=== PATIENT | female | born 1955 | race Caucasian/White ===

== ENCOUNTER 2023-02-11 07:28 | Outpatient (OUT) | payer MEDICARE, SELFPAY ==
--- NOTE | 2023-02-11 07:42 | CT_ITS ---
The [address] [address] Patient Name: MARLY JAFFE MRN: [facility]:[id number] date: 1955 Sex: F Assigned Patient Location: LAB Current Patient Location: LAB Accession/Order Number: [id number] Exam Date: 02/11/2023 08:00 Report Date: 02/11/2023 09:25 At the request of: CHAR MANZANARES Procedure: CT chest w con EXAM: CT chest w con HISTORY: Lung nodules R91.8 COMPARISON: 08/04/2022 CHEST FINDINGS: Lungs/Pleura: A pleural-based region of atelectasis or scarring in the right lung base appears smaller and less nodular on the current study measuring approximately 7.7 x 3.1 mm. A pleural-based nodule in the left lower lobe on image 85 of series 4 is stable measuring approximately 4.7 mm. No pleural effusion or pneumothorax. Cardiovascular: The heart is normal in size. Moderate coronary artery calcifications are present. The aorta and pulmonary arteries are unremarkable. Pericardium: No effusion. Mediastinum: Unremarkable. Lymph Nodes: No lymph node enlargement by CT size criteria. Bones: No acute osseous abnormality. Soft tissues: Breast implants are present. Upper Abdomen: There is a small area of enhancement at the dome of liver measuring 1.[address]/CT chest w con IMPRESSION: 1. No acute abnormality of the chest. 2. Area of streaky opacity in the right lung base has decreased in size with a less nodular appearance compared to the previous exam, favored to represent atelectasis or scarring. 3. Stable pulmonary nodule in the left lower lobe. 4. Small indeterminate area of enhancement at the dome of the liver, possibly representing a small flash filling hemangioma. Electronically authenticated by: MARCIO NORTH Date: 02/11/2023 09:25
[2023-02-11 07:48] LABS: Estimated GFR (African America >60 (>=60); Estimated GFR (Non-African Ame >60 (>=60)
== END 2023-02-11 07:29 | disposition home or self-care (01) ==
LOC: LAB 07:28
PROVIDERS: PCP Family Medicine; Visit Provider Family Medicine
DX: R91.8 Other nonspecific abnormal finding of lung field (principal)
CPT/HCPCS: 36415; 71260; 82565; Q9967

== ENCOUNTER 2023-03-08 09:49 | Outpatient (OUT) | payer MEDICARE, SELFPAY ==
[2023-03-08 10:31] LABS: Basophils Absolute Auto 0.1 10^3/uL (0.0-0.1); Basophils Percent Auto 0.9 % (0.2-2.0); Eosinophils Absolute Auto 0.2 10^3/uL (0.0-0.7); Eosinophils Percent Auto 3.4 % (0.9-7.0); Hematocrit 40.1 % (36.0-48.0); Hemoglobin 13.3 g/dL (12.0-16.0); Immature Granulocytes Abs Auto 0.03 10^3/uL (0.00-0.03); Immature Granulocytes Pct Auto 0.4 % (0.0-0.5); Lymphocytes Absolute Auto 2.6 10^3/uL (1.2-3.8); Lymphocytes Percent Auto 37.2 % (20.5-60.0); Mean Corpuscular HGB Conc 33.2 g/dL (29.9-35.2); Mean Corpuscular Hemoglobin 31.1 pg (26.7-34.0); Mean Corpuscular Volume 93.9 fL (81.0-99.0); Mean Platelet Volume 9.2 fL (9.5-13.5); Monocytes Absolute Auto 0.6 10^3/uL (0.3-0.8); Monocytes Percent Auto 8.9 % (1.7-12.0); Neutrophils Absolute Auto 3.4 10^3/uL (1.4-6.5); Neutrophils Percent Auto 49.2 % (43.0-75.0); Platelet Count 226 10^3/uL (150-450); Red Blood Count 4.27 10^6/uL (4.20-5.40); Red Cell Distribution Width 13.9 % (11.0-15.0); White Blood Count 6.9 10^3/uL (4.0-11.0)
[2023-03-08 10:51] LABS: Alanine Aminotransferase 22 U/L (14-59); Albumin Level 3.5 g/dL (3.4-5.0); Alkaline Phosphatase 62 U/L (46-116); Anion Gap 14.8; Aspartate Amino Transferase 22 U/L (15-37); BUN Creatinine Ratio 15.6; Bilirubin Direct <0.1 mg/dL (0.0-0.2); Bilirubin Total 0.3 mg/dL (0.2-1.0); Calcium 8.9 mg/dL (8.5-10.1); Chloride 107 mmol/L (98-107); Chol HDL Ratio 3.5; Cholesterol 212 mg/dL (<=200); Estimated GFR (African America >60 (>=60); Estimated GFR (Non-African Ame >60 (>=60); Globulin 3.5 g/dL; Glucose 103 mg/dL (74-106); HDL Cholesterol 61 mg/dL (40-60); Potassium 3.8 mmol/L (3.5-5.1); Sodium 144 mmol/L (136-145); Thyroid Stimulating Hormone 1.068 uIU/mL (0.358-3.740); Triglycerides 111 mg/dL (<=150); VLDL CHOLESTEROL 22.2 mg/dL
== END 2023-03-08 09:50 | disposition home or self-care (01) ==
PROVIDERS: PCP Family Medicine; Visit Provider Family Medicine
DX: Z79.899 Other long term (current) drug therapy (principal); Z13.220 Encounter for screening for lipoid disorders; R00.0 Tachycardia, unspecified
CPT/HCPCS: 36415; 80048; 80061; 80076; 84443; 85025

== ENCOUNTER 2023-04-14 11:26 | Outpatient (OUT) | payer MEDICARE, SELFPAY ==
--- NOTE | 2023-04-14 11:39 | PM.CN ---
Consult Note: HPI Data of Consult Patient: known to practice within the last 3 years Requesting Physician: Janet Ramirez NP Primary Care Provider: Jameel Massey MD Consult Narrative Reason for consult: F/u Narrative: Ann Marie Mccain a pleasant 68 year old female presents for evaluation and management of chronic low back pain and muscle spasms. Today rating pain 2/10 in low back. Patient continues to have >50% pain relief and functional improvement from lumbar RFAs in 10/23. Patient continues to experience stiffness and a sore back. Recently pain has been improved with lidocaine cream, topical voltaren, and skelaxin. cc:: CC: Janet Ramirez NP Review of Systems ROS Status of ROS 10 or more systems reviewed and unremarkable except as noted in history and below Musculoskeletal Reports: back pain Exam Constitutional Documenting provider has reviewed patient's vital signs: yes Common normals: no apparent distress, oriented x3, healthy appearing, alert and well nourished General appearance: cooperative HENMT Common normals: normocephalic, hearing grossly normal bilaterally and moist oral mucous membranes Head and scalp: normocephalic Eye Common normals: PERRL Pupil: PERRL Neck & C-Spine Common normals: full ROM General: normal visual inspection Chest Common normals: inspection of chest normal Respiratory Common normals: normal respiratory effort, no retractions and no use of accessory muscles Back & Pelvis Lumbar spine/lower back: ROM limited, pain with ROM and paraspinal muscle tenderness Extremity Common normals: normal to inspection and full ROM Neuro Common normals: oriented x3, CN's II-XII intact bilaterally, moves all extremities, no focal motor deficits, no sensory deficits noted, deep tendon reflexes 2+ bilaterally and gait normal Sensorium/orientation: alert Motor exam: strength 5/5 throughout and no movement abnormalities noted Psych Common normals: mental status grossly normal, thought process normal, cooperative, affect normal, speech normal and activity/motor behavior normal Speech: normal speech Thought process: normal thought process Results Additional Findings Additional findings: I have checked an [facility] report on this patient today and there are no aberrancies noted in the prescribing history.?? A drug screen was completed and reviewed within the last year, and if there has not been a drug screen completed we ordered one today to monitor higher risk, state monitored pain medication use. As part of providing excellent, safe, comprehensive care, the following was completed at our patient's visit: 1. A medication reconciliation and review to ensure accurate knowledge of current/active medications, including asking our patients to inform us about any mfhj-[id number] medications or herbal remedies/nutritional supplements/alternative remedies. 2. A review to specifically ensure our patients have had annual screening for: elevated body mass index (BMI), tobacco use, screening for depression, and screening for unhealthy alcohol use. When screening is concerning, patients are provided with education and the specific recommendation to discuss the concerning health issue and treatment options with their primary care provider. Assessment and Plan Assessment and Plan (1) Lumbar spondylosis: (2) Muscle spasm: Plan continue current medications and conservative measures prescription lidocaine cream ordered BID-TID PRN f/u 3 months
== END 2023-04-14 11:27 | disposition home or self-care (01) ==
PROVIDERS: PCP Family Medicine; Visit Provider Nurse Practitioner
DX: M47.816 Spondylosis without myelopathy or radiculopathy, lumbar region (principal); M62.838 Other muscle spasm
CPT/HCPCS: G0463

== ENCOUNTER 2023-05-05 09:37 | Outpatient (OUT) | payer MEDICARE, SELFPAY ==
--- NOTE | 2023-05-05 09:50 | XR_ITS ---
The [address] [address] Patient Name: MARLY JAFFE MRN: [id number] date: 1955 Sex: F Assigned Patient Location: [facility] Current Patient Location: Accession/Order Number: [id number] Exam Date: 05/05/2023 10:00 Report Date: 05/06/2023 07:51 At the request of: KATELYN MORATAYA Procedure: XR lumbar spine 6V w bending EXAMINATION: XR thoracic spine 2V, XR lumbar spine 6V w bending HISTORY: Thoracic Pain , lumbar pain COMPARISON: 08/04/2022 FINDINGS: BONES: Normal alignment of the thoracic and lumbar vertebral bodies with no acute fracture or spondylolisthesis. Mild to moderate diffuse degenerative spondylosis and facet osteoarthropathy most significant at L3-S1 DISC SPACES: Moderate multilevel disc space narrowing of the lumbar spine extending from L2 to S1 with endplate sclerosis and vacuum disks PARASPINOUS: Negative. No paraspinous abnormality is seen. OTHER: No transient spondylolisthesis with flexion or extension of the lumbar spine. Vascular calcifications XR/XR lumbar spine 6V w bending IMPRESSION: Mild to moderate diffuse degenerative changes No dynamic instability Electronically authenticated by: PAM CHRISTINA Date: 05/06/2023 07:51
--- NOTE | 2023-05-05 09:50 | XR_ITS ---
The [place] [id number] Patient Name: MARLY JAFFE MRN: [id number] date: 1955 Sex: F Assigned Patient Location: [facility] Current Patient Location: Accession/Order Number: [id number] Exam Date: 05/05/2023 10:00 Report Date: 05/06/2023 07:51 At the request of: KATELYN MORATAYA Procedure: XR thoracic spine 2V EXAMINATION: XR thoracic spine 2V, XR lumbar spine 6V w bending HISTORY: Thoracic Pain , lumbar pain COMPARISON: 08/04/2022 FINDINGS: BONES: Normal alignment of the thoracic and lumbar vertebral bodies with no acute fracture or spondylolisthesis. Mild to moderate diffuse degenerative spondylosis and facet osteoarthropathy most significant at L3-S1 DISC SPACES: Moderate multilevel disc space narrowing of the lumbar spine extending from L2 to S1 with endplate sclerosis and vacuum disks PARASPINOUS: Negative. No paraspinous abnormality is seen. OTHER: No transient spondylolisthesis with flexion or extension of the lumbar spine. Vascular calcifications XR/XR thoracic spine 2V IMPRESSION: Mild to moderate diffuse degenerative changes No dynamic instability Electronically authenticated by: PAM CHRISTINA Date: 05/06/2023 07:51
== END 2023-05-05 09:38 | disposition home or self-care (01) ==
LOC: RAD 09:40
PROVIDERS: PCP Family Medicine; Visit Provider Nurse Practitioner
DX: M54.50 Low back pain, unspecified (principal); M47.814 Spondylosis without myelopathy or radiculopathy, thoracic region; M47.816 Spondylosis without myelopathy or radiculopathy, lumbar region
CPT/HCPCS: 72070; 72114

== ENCOUNTER 2023-05-11 12:41 | Outpatient (OUT) | payer MEDICARE, SELFPAY ==
--- NOTE | 2023-05-11 13:06 | PM.CN ---
Consult Note: HPI Data of Consult Requesting Physician: Janet Ramirez NP Primary Care Provider: Estelle Bautista MD Consult Narrative Reason for consult: f/u Narrative: Ann Marie Mccain a pleasant 68 year old female presents for evaluation and management of whole body pain. Today pain in 4/10 in neck, shoulders, mid back, low back. Describes as a constant hurt. No fevers, chills, numbness/tingling, weakness. Patient recently had xrays completed of thoracic and lumbar spine which revealed degerenative changes cc:: CC: Janet Ramirez NP Review of Systems ROS Status of ROS 10 or more systems reviewed and unremarkable except as noted in history and below Musculoskeletal Reports: back pain and neck pain Meds Home Medications and Allergies Home Medications Medication Instructions Recorded Confirmed Type lidocaine 5 % topical ointment 1 applic topical TID #50 grams 04/14/23 Rx Exam Constitutional Documenting provider has reviewed patient's vital signs: yes Common normals: no apparent distress, oriented x3, healthy appearing, alert and well nourished General appearance: cooperative HENMT Common normals: normocephalic, hearing grossly normal bilaterally and moist oral mucous membranes Head and scalp: normocephalic Eye Common normals: PERRL Pupil: PERRL Neck & C-Spine Common normals: full ROM General: normal visual inspection Cervical spine: pain with cervical ROM Chest Common normals: inspection of chest normal Respiratory Common normals: normal respiratory effort, no retractions and no use of accessory muscles Back & Pelvis Thoracic spine/upper back: ROM limited and pain with ROM Lumbar spine/lower back: ROM limited, pain with ROM and paraspinal muscle tenderness Extremity Common normals: normal to inspection and full ROM Neuro Common normals: oriented x3, CN's II-XII intact bilaterally, moves all extremities, no focal motor deficits, no sensory deficits noted, deep tendon reflexes 2+ bilaterally and gait normal Sensorium/orientation: alert Motor exam: strength 5/5 throughout and no movement abnormalities noted Psych Common normals: mental status grossly normal, thought process normal, cooperative, affect normal, speech normal and activity/motor behavior normal Speech: normal speech Thought process: normal thought process Assessment and Plan Assessment and Plan (1) Chronic prescription benzodiazepine use: (2) Osteoarthritis: (3) Lumbar spondylosis: (4) Muscle spasm: (5) Thoracic spondylosis: Plan NNCP due to benzo use stop mobic, start celebrex 100mg BID continue tylenol use PRN start PT/aquatherapy f/u 3 months
--- OUTSIDE RECORDS SUMMARY | 2023-06-21 14:22 | XMS_ITS | CCD ---
Author Name Unknown Address [id number] [place] [address] Organization [facility] Care Team Providers Care Electrotherapist Name Role Phone MARNIESAMIRY Attending Unavailable Abbass, Rami Unavailable Unavailable Unknown, Referring Provider Unavailable Unav ailable Abbkayce, Rami Unavailable Unavailable Chaya PAUL, Rami Unavailable Unavailable Unknown, Referring Provider Unavailable Unav ailable Raquel PAUL, Jyoti S Primary Care Provider Raquel PAUL, Jyoti Lugo Primary Care Provider [phone] Raquel PAUL, Jyoti Lugo Primary Care Provider MD Enrrique Grant Attending Provider MD Jameel Manzanares Primary Care Provider Enrrique Grant Attending UnavailEnrrique Contreras Admitting Unavailabl e Jameel Manzanares Primary Care Unavailable Enrrique Grant Unavailable ROSANA ., DR ANTONELLA Lugo Consulting Unavailable NADERER, DR JAMEEL Ellis Primary Care Unavailable WAYNE ., DR ANTONELLA Lugo Attending Unavailable WAYNE ., DR ANTONELLA Lugo Admitting Unavailable RAJ, DR ÁNGEL Verduzco Consulting Unavailable NADERER, DR JAMEEL Ellis Primary Care Unavailable NADERER, DR JAMEEL Ellis Attending Unavailable NADERER, DR JAMEEL Ellis Admitting Unavailable NADERER, DR JAMEEL Ellis Consulting Unavailable KIERAN PETERSEN Consulting Unavailable GLENNA, DR JAMEEL Ellis Primary Care Unavailable KIERAN PETERSEN Attending Unavailable KIERAN PETERSEN Admitting Unavailable KARASIMateo ., DR MADRID Consulting Unavailabl e NADERER, DR JAMEEL Ellis Primary Care Unavailable KARASIK ., DR MADRID Attending Unavailabl e KARASIK ., DR MADRID Admitting Unavailabl e ZIEBER, DR ÁNGEL Verduzco Consulting Unavailable ARMANDO .SWEETIE Consulting Unavailable NADERER, DR JAMEEL Ellis Primary Care Unavailable WAYNE ., DR ANTONELLA Lugo Attending Unavailable WAYNE ., DR ANTONELLA Lugo Admitting Unavailable ROBERTS ., SWEETIE Consulting Unavailable NADERER, DR JAMEEL Ellis Primary Care Unavailable WAYNE ., DR ANTONELLA Lugo Attending Unavailable WAYNE ., DR ANTONELLA Lugo Admitting Unavailable WAYNE ., DR ANTONELLA Lugo Consulting Unavailable NADGALILEA, DR JAMEEL Ellis Primary Care Unavailable WAYNE ., DR ANTONELLA Lugo Attending Unavailable WAYNE ., DR ANTONELLA Lugo Admitting Unavailable MOSS, RAFAELA Consulting Unavailable LAKSHMIPATHY ., NARKENDAL Consulting Amelia vailable NADERER, DR JAMEEL Ellis Primary Care Unavailable LAKSHMIPATHY ., AAKASH Attending Amelia vailable LAKSHMIPATHY ., AAKASH Admitting Amelia vailable ROBERTS ., SWEETIE Consulting Unavailable NADERER, DR JAMEEL Ellis Primary Care Unavailable WAYNE ., DR ANTONELLA Lugo Attending Unavailable WAYNE ., DR ANTONELLA Lugo Admitting Unavailable KARASIK ., DR MADRID Consulting Unavailabl e NADERER, DR JAMEEL Ellis Primary Care Unavailable KARASIK ., DR MADRID Attending Unavailabl e KARASIK ., DR MADRID Admitting Unavailabl e NADERER, DR JAMEEL Ellis Consulting Unavailable NADERER, DR JAMEEL Ellis Primary Care Unavailable NADERER, DR JAMEEL Ellis Attending Unavailable NADERER, DR JAMEEL Ellis Admitting Unavailable NADERER, DR JAMEEL Ellis Consulting Unavailable NADERER, DR JAMEEL Ellis Primary Care Unavailable NADERER, DR JAMEEL Ellis Attending Unavailable NADERER, DR JAMEEL Ellis Admitting Unavailable NADERER, DR JAMEEL Ellis Primary Care Unavailable WAYNE, DR FITZGERALD Attending Unavailable WAYNE, DR FITZGERALD Admitting Unavailable Estelle Bautista Unavailable JOSE VILLALOBOS Attending Unavailable KIERAN PETERSEN Attending Unavailable JOSE VILLALOBOS Attending Unavailable JOSE VILLALOBOS Attending Unavailable KIERAN PETERSEN Admitting Unavailable KIERAN PETERSEN Attending Unavailable KAYY VASQUEZ Attending Unavailable KIERAN PETERSEN Attending Unavailable Allergies Allergy Classification Reported Allergen(s) Allergy Type Date of Onset Reaction(s) Facility Prochlorperazine (1 source) Prochlorperazine Drug Allergy [facility] Work Phone: Sulfonamides (antibiotic) (1 source) Sulfonamides (Antibiotic) Drug Allergy [facility] Work Phone: (5 sources) Hydroxychloroquine; 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: [HYDROXYCHLOROQUINE SULFATE] Drug Allergy Rash [facility] Repository (8 sources) Sulfonamides (Antibiotic); 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: [SULFA (SULFONAMIDE ANTIBIOTICS)] Propensity to adverse reactions to drug (disorder) Unknown Reaction [facility] Repository (6 sources) AMOXICILLIN-POT CLAVULANATE; 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: [AMOXICILLIN-POT CLAVULANATE] Propensity to adverse reactions to drug (disorder) 019 Rash [facility] Repository (5 sources) PROCHLORPERAZINE EDISYLATE; 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: [PROCHLORPERAZINE EDISYLATE] Propensity to adverse reactions to drug (disorder) [facility] Repository (4 sources) Sulfonamides (Antibiotic) drug allergy [facility] Work Phone: (1 source) drug allergy [facility] Work Phone: (10 sources) Prochlorperazine; 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: [Compazine] Drug Allergy Unknown [facility] Repository (6 sources) Prochlorperazine; 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: [PROCHLORPERAZINE] Drug Allergy Other: See Comments [facility] (5 sources) traMADol; 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: [TRAMADOL] Drug Allergy 019 Intolerance, GI Upset [facility] (1 source) Prochlorperazine Drug Allergy 023 [facility] Repository (6 sources) Sulfacetamide / Sulfur Drug Allergy Unknown [employer] [facility] Other (1 source) Sulfonamides (Antibiotic) Drug allergy (disorder) [facility] Repository (1 source) Hydroxychloroquine; 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: [HYDROXYCHLOROQUINE ] Drug Allergy [facility] Repository Medications Current Medications Medication Drug Class(es) Dates Sig (Normalized) Sig (Original) [id number] 60 actuat albuterol 0.09 mg/actuat metered dose inhaler (8 sources) beta2-Adrenergic Agonist Start: 06-02-2023 take 2 puff(s) by inhalation every four hours as needed Albuterol Sulfate HFA 108 (90 Base) MCG/ACT 2 puff Inhalation every 4 hrs prn May, Active Start: 06-02-2023 take 2 puff(s) by in halation every four hours as needed Albuterol Sulfate HFA 108 (90 Base) MCG/ACT 2 puff Inhalation every 4 hrs prn May, Active Start: 06-19-2020 take 2 puff(s) by in halation every four hours as needed for wheezing albuterol HFA (PROVENTIL HFA, VENTOLIN HFA) 90 mcg/actuation inhaler Inhale 2 Puffs as instructed every 4 hours as needed for Wheezing/Shortness of Breath. 6.7 g 4 06/19/2020 Active Start: 09-11-2019 End: 06-19-2020 take 2 puff(s) by inhalation every four hours as needed for wheezing albuterol HFA (PROVENTIL HFA, VENTOLIN HFA) 90 mcg/actuation inhaler Inhale 2 Puffs as instructed every 4 hours as needed for Wheezing/Shortness of Breath. 1 Inhaler 0 09/11/2019 06/19/2020 Discontinued Comment on above: Inhale 2 Puffs as in structed every 4 hours as needed for Wheezing/Shortness of Breath. alendronic acid 70 mg oral tablet (5 sources) Bisphosphonate Alendronate Sodi um 70 MG 1 tablet once a week Active ALPRAZolam 1 mg oral tablet (7 sources) Benzodiazepine Start: 07-29-2022 take 1 mg by mouth once daily Alprazolam Active 1 MG PO Daily July 29, 2022 12:00am take 1 tablet by mali th three times daily as needed Xanax 1 MG 1 tablet Orally three times a day prn Active amLODIPine 5 mg oral tablet (5 sources) Dihydropyridine Calcium Channel Mirian take 1 tablet by mouth every twenty-four hours amLODIPine Besylate 5 MG 1 tablet once a day Active amoxicillin 875 mg / clavulanate 125 mg oral tablet (5 sources) Penicillin-class Antibacterial Start: take 1 tablet by mouth every twelve hours Amoxicillin-Pot Clavulanate 875-125 MG 1 tablet Orally every 12 hrs for 10 day(s) Apr, Active ascorbic acid 1000 mg oral tablet (7 sources) Vitamin C Start: 023 take 1 g by mouth once daily Ascorbic Acid (Vitamin C) (Vitamin C) 1,000 mg Tablet Active 1 GM PO Daily July 29, 2022 12:00am Vitamin C Active aspirin 81 mg oral tablet (11 sources) Platelet Aggregation Inhibitor, Nonsteroidal Anti-inflammatory Drug Start: 07-29-2022 take 81 mg by mouth once daily Aspirin Active 81 MG PO Daily July 29, 2022 12:00am Start: 03-28-2017 take 1 tablet by mali once daily aspirin, enteric coated (ADULT LOW DOSE ASPIRIN) 81 mg EC tablet Take 1 tablet by mouth once daily. 0 03/28/2017 Active Aspirin 81 Activ e Comment on above: Take 1 tablet by mali once daily. azithromycin 250 mg oral tablet (1 source) Macrolide Antimicrobial Start: 06-17-2023 Azithromycin 250 MG as directed Orally 2 tabs po today, then 1 tab daily x 4 more days for 5 Jun, Active B Complex (6 sources) B Complex Active baclofen 20 mg oral tablet (2 sources) gamma-Aminobutyric Acid-ergic Agonist Start: 07-29-2022 take 20 mg by mouth once daily Baclofen Active 20 MG PO Daily July 29, 2022 12:00am bisacodyl 5 mg delayed release oral tablet (1 source) Stimulant Laxative Start: 07-29-2022 take 1 tablet by mouth once daily at bedtime Bisacodyl (Dulcolax (Bisacodyl)) 5 mg Tablet,Delayed Release (Dr/Ec) Active 5 MG PO Daily at bedtime July 29, 2022 12:00am calcium carbonate 1250 mg oral tablet (2 sources) Start: 07-29-2022 take 500 mg by mouth once daily Calcium Carbonate Active 500 MG PO Daily July 29, 2022 12:00am Oscal 500/200 D- 3 Active cholecalciferol 0.05 mg oral capsule (5 sources) Vitamin D Start: 07-29-2022 take 1 capsule by mouth once daily Cholecalciferol (Vitamin D3) (Vitamin D3) 50 mcg (2,000 unit) Capsule Active 50 MCG PO Daily July 29, 2022 12:00am Start: 03-28-2017 take 1 capsule by mo [facility] once daily Cholecalciferol, Vitamin D3, 2,000 unit cap Take 2,000 Units by mouth once daily. 0 03/28/2017 Active Comment on above: Take 2,000 Units by mouth once daily. chondroitin sulfates 200 mg / glucosamine hydrochloride 250 mg oral tablet (2 sources) Start: 07-29-2022 take 1 tablet by mouth after mealtime Glucosamine-Chondroitin (Osteo Bi-Flex) 250-200 mg Tablet Active 1 TAB PO after meals July 29, 2022 12:00am Osteo Bi-Flex On e Per Day Active fexofenadine hydrochloride 180 mg oral tablet (7 sources) Histamine-1 Receptor Antagonist Start: 07-29-2022 take 180 mg by mouth once daily Fexofenadine Active 180 MG PO Daily July 29, 2022 12:00am Giovanna Active ibuprofen 200 mg oral tablet (12 sources) Nonsteroidal Anti-inflammatory Drug Start: 07-29-2022 take 1 tablet by mouth once daily Ibuprofen (Advil) 200 mg Tablet Active 200 MG PO Daily July 29, 2022 12:00am Advil Active Advil TABS TAKE 2 TABLETSPO QHS Refills: 0 Active Advil TABS TAKE 2 TABLETSPO QHS Refills: 0 DO Active Magnesium (7 sources) Start: 07-29-2022 take 1 tablet by [facility] once daily Magnesium Active 1 TAB PO Daily July 29, 2022 12:00am Magnesium Active meloxicam 15 mg oral tablet (5 sources) Nonsteroidal Anti-inflammatory Drug take 1 tablet by mouth every twelve hours Meloxicam 15 MG 1 tablet bid Active methocarbamol 500 mg oral tablet (5 sources) Muscle Relaxant Methocarbamol 50 0 MG 1 tablet 2-3 times a day prn Active methylPREDNISolone 4 mg oral tablet (4 sources) Corticosteroid Start : 06-02 methylPREDNISolone 4 MG as directed Orally for 6 days May, Active 24 hr metoprolol succinate 25 mg extended release oral tablet (5 sources) beta-Adrenergic Mirian take 1 tablet by mouth every twenty-four hours Metoprolol Succinate ER 25 MG 1 tablet once a day Active montelukast 10 mg oral tablet (5 sources) Leukotriene Receptor Antagonist take 1 tablet by mouth every twenty-four hours Montelukast Sodium 10 MG 1 tablet once a day Active Multivitamin preparation (1 source) Start : 07-29 take 1 tablet by mouth once daily Multivitamin Active 1 TAB PO Daily July 29, 2022 12:00am [place] 3 (6 sources) [place] 3 Active [place]-3 Fatty Acids (1 source) Start : 07-29 take 1000 mg by mouth once daily [place]-3 Fatty Acids Active 1000 MG PO Daily July 29, 2022 12:00am omeprazole 20 mg delayed release oral tablet (17 sources) Proton Pump Inhibitor Start : 07-29 take 20 mg by mouth once daily Omeprazole Active 20 MG PO Daily July 29, 2022 12:00am Start: 07-15-2021 End: 05-07-2022 take 1 capsule by mouth once daily omeprazole (PRILOSEC) 20 mg capsule TAKE 1 CAPSULE BY MOUTH EVERY DAY 90 capsule 1 05/07/2022 Active Start: 10-21-2017 End: 11-10-2020 omeprazole (PRILOSEC) 20 mg capsule Comment on above: TAKE 1 CAPSULE BY MO UTH EVERY DAY travoprost (10 sources) Prostaglandin Analog Start: 07-29-2022 take 1 drop(s) into the eye(s) once daily in the evening Travoprost Active 1 DROPS EYE-BOTH Every evening July 29, 2022 12:00am Start: 02-01-2022 End: 05-02-2022 travoprost (TRAVATAN Z) 0.00 4 % ophthalmic drops USE 1 DROP IN BOTH EYES DAILY AT BEDTIME. 15 mL 2 02/01/2022 Active Start: 10-01-2019 End: 06-30-2020 travoprost (TRAVATAN Z) 0.00 4 % ophthalmic drops Use 1 Drop in both eyes daily at bedtime. 3 Bottle 3 10/01/2019 06/30/2020 Discontinued Travoprost Activ e Comment on above: USE 1 DROP IN BOTH E YES DAILY AT BEDTIME. ubidecarenone 100 mg oral ca psule (4 sources) Start: 07-29-2022 Coenzyme Q10 ( Co Q-10) 100 mg Capsule Active 100 MG PO Daily July 29, 2022 12:00am Start: 07-07-2020 take 1 capsule by mo uth once daily coenzyme Q10 (CO Q-10) 100 mg cap capsule Take 1 capsule by mouth once daily. 0 07/07/2020 Active Comment on above: Take 1 capsule by mo uth once daily. Vitamin B Complex (1 source) Start: 07-29-2022 take 1 tablet by mali once daily Vitamin B Complex Active 1 TAB PO Daily July 29, 2022 12:00am Vitamin D3 (6 sources) Vitamin D3 Activ e Womens One Daily (6 sources) Womens One Daily Active Completed/Discontinued Medications Medication Drug Class(es) Dates Sig (Normalized) Sig (Original) ascorbic acid 60 mg / beta carotene 5000 unt / copper sulfate 40 mg / dl-alpha tocopheryl acetate 30 unt / sodium selenite 0.04 mg / zinc oxide 40 mg oral tablet (3 sources) Vitamin C take 1 tablet by mouth once daily Womens One Daily Oral Tablet Refills: 0 Active brimonidine tartrate 2 mg/ml / timolol 5 mg/ml ophthalmic solution (3 sources) alpha-Adrenergic Agonist, beta-Adrenergic Mirian Start: 06-30-2020 Brimonidine-Timol ol (COMBIGAN) 0.2-0.5 % Use 1 Drop in both eyes twice daily. 1 Bottle 0 06/30/2020 Active Comment on above: Use 1 Drop in both e yes twice daily. cyclobenzaprine hydrochloride 10 mg oral tablet (1 source) Muscle Relaxant Start: 05-03-2019 End: 07-07-2020 take 1 tablet by mouth every twelve hours as needed cyclobenzaprine (FLEXERIL) 10 mg tablet Take 1 tablet by mouth twice daily as needed for Muscle Spasm. 60 tablet 1 05/03/2019 07/07/2020 Discontinued Comment on above: Take 1 tablet by mali twice daily as needed for Muscle Spasm. diclofenac sodium 0.01 mg/mg topical gel (9 sources) Nonsteroidal Anti-inflammatory Drug Start: 11-02-2018 apply 2 g topically four times daily diclofenac sodium (VOLTAREN) 1 % topical gel Apply 2 g to affected area four times daily. 1 Tube 11 11/02/2018 Active Start: 07-14-2017 Diclofenac Sod ium 1 % GEL Quantity: 100 Refills: 0 Start : 14-Jul-2017 Active Comment on above: Apply 2 g to affecte d area four times daily. diphenhydrAMINE hydrochloride 25 mg oral tablet (5 sources) Histamine-1 Receptor Antagonist take 1 tablet by mouth at bedtime Benadryl 25 MG TABS TAKE 1 TABLET AT BEDTIME. Refills: 0 Active preservative-free dorzolamide 20 mg/ml / timolol 5 mg/ml ophthalmic solution (1 source) Carbonic Anhydrase Inhibitor, beta-Adrenergic Mirian Start: 1 take 1 drop(s) into the eye(s) twice daily COSOPT, PF, 2-0.5 % Use 1 Drop in both eyes twice daily. 60 Each 3 10/20/2020 Active Comment on above: Use 1 Drop in both e yes twice daily. fluticasone propionate 0.05 mg/actuat metered dose nasal spray (10 sources) Corticosteroid Start: 06-08-2018 Fluticasone Pr opionate 50 MCG/ACT Nasal Suspension Quantity: 16 Refills: 0 Start : 08-Jun-2018 Active Fluticasone Prop ionate HFA Active gabapentin 100 mg oral capsule (1 source) Anti-epileptic Agent Start: 01-21-2020 End: 07-07-2020 take 1 capsule by mouth once daily at bedtime gabapentin (NEURONTIN) 100 mg capsule Take 1 capsule by mouth daily at bedtime for 30 days. 30 capsule 3 01/21/2020 07/07/2020 Discontinued Comment on above: Take 1 capsule by [facility] daily at bedtime for 30 days. ibuprofen/diphenhydramine ci t (ADVIL PM ORAL) (4 sources) ibuprofen/diphen hydramine cit (ADVIL PM ORAL) Take by mouth. 0 Active Comment on above: Take by mouth. linaclotide 0.072 mg oral capsule (9 sources) Guanylate Cyclase-C Agonist Start: 11-10-2018 take 1 capsule by mouth once daily Linzess 72 MCG Oral Capsule TAKE 1 CAPSULE Daily Quantity: 90 Refills: 1 Krzysztof Larkin MD Start : 10-Nov-2018 Active Start: 03-28-2017 linaclotide (L INZESS) 290 mcg cap Take 1 capsule by mouth as needed. 0 03/28/2017 Active Comment on above: Take 1 capsule by [facility] as needed. lubiprostone 0.008 mg oral capsule (2 sources) Chloride Channel Activator Start: 04-30-2020 take 1 capsule by mouth twice daily Amitiza 8 MCG Oral Capsule TAKE 1 CAPSULE BY MOUTH TWICE A DAY Quantity: 180 Refills: 1 Krzysztof Larkin MD Start : 30-Apr-2020 Active Magnesium Oxide (5 sources) Magnesium CAPS Refills: 0 Active Magnesium CAPS R efills: 0 DO Active melatonin 10 mg oral tablet (7 sources) Start: 07-09-2020 take 1 tablet by mali th every twenty-four hours as needed melatonin 10 mg tab Take 1 tablet by mouth at bedtime as needed. 90 tablet 3 07/09/2020 Active Start: 03-28-2017 End: 06-19-2020 take 1 capsule by mouth once daily melatonin 10 mg cap Take 1 capsule by mouth once daily. 0 03/28/2017 06/19/2020 Discontinued Comment on above: Take 1 tablet by amli th at bedtime as needed. Take 1 capsule by mo uth once daily. MV with Muw-Cjoxswkh-Ecutvs (CENTRUM SILVER) 0.4-300-250 mg-mcg-mcg tab (1 source) Start: 07-07-2020 take 1 tablet by mouth once daily MV with Sif-Souhpfrl-Hievqm (CENTRUM SILVER) 0.4-300-250 mg-mcg-mcg tab Take 1 tablet by mouth once daily. 30 tablet 3 07/07/2020 Active Comment on above: Take 1 tablet by mali th once daily. nortriptyline 10 mg oral capsule (1 source) Tricyclic Antidepressant Start: 01-29-2020 End: 05-16-2020 take 1 capsule by mouth once daily at bedtime nortriptyline (PAMELOR) 10 mg capsule Take 1 capsule by mouth daily at bedtime. 30 capsule 5 01/29/2020 05/16/2020 Discontinued Comment on above: Take 1 capsule by mo uth daily at bedtime. triamcinolone acetonide 40 mg/ml injectable suspension (5 sources) Corticosteroid Start: 05-19-2023 Kenalog-40 May, 40 mg Womens One Daily Oral Tablet (1 source) take 1 tablet by mouth once daily Womens One Daily Oral Tablet Refills: 0 DO Active Womens One Daily Oral Tablet (1 source) take 1 tablet by mouth once daily Womens One Daily Oral Tablet Refills: 0 Active Problems Active Problems Problem Classification Problem Date Documented Da te Episodic/Chronic Cardiac dysrhythmias (6 sources) Supraventricular tachycardia; 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: [SUPRAVENTRICULAR TACHYCARDIA] Onset: 3 Chronic Cardiac dysrhythmias (7 sources) Palpitations; 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: [PALPITATIONS] Onset: 2 Episodic Diverticulosis and diverticulitis (7 sources) Diverticular disease of colon; 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: [Diverticulosis of intestine, part unspecified, without perforation or abscess without bleeding] Chronic Esophageal disorders (9 sources) Gastroesophageal reflux disease; 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: [Esophageal reflux] Onset: 9 03-03-2009 Chronic Essential hypertension (2 sources) Essential (primary) hypertension; 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: [Essential (primary) hypertension] Onset: 3 Chronic Glaucoma (4 sources) Raised intraocular pressure; 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: [Ocular hypertension, unspecified eye] Onset: 3 05-03-2013 Chronic Headache; including migraine (1 source) Chronic mixed headache syndrome; 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: [Other headache syndrome] 02-14-2020 Episodic Hemorrhoids (1 source) Unspecified hemorrhoids Episodic Menopausal disorders (8 sources) Atrophic vaginitis; 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: [Postmenopausal atrophic vaginitis] 03-30-2011 Chronic Noninfectious gastroenteritis (5 sources) Lymphocytic-plasmacyti c colitis; 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: [Other and unspecified noninfectious gastroenteritis and colitis] Episodic Nonspecific chest pain (1 source) Other chest pain; 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: [OTHER CHEST PAIN] Onset: 3 Episodic Other and unspecified benign neoplasm (6 sources) History of polyp of colon; 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: [Personal history of colonic polyps] Episodic Other disorders of stomach and duodenum (5 sources) Indigestion; 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: [Dyspepsia and other specified disorders of function of stomach] Episodic Other gastrointestinal disorders (5 sources) Irritable bowel syndrome; 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: [Irritable bowel syndrome] Chronic Other gastrointestinal disorders (5 sources) Celiac disease; 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: [Celiac disease] Chronic Other gastrointestinal disorders (4 sources) Irritable bowel syndrome characterized by constipation; 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: [Irritable bowel syndrome] Chronic Other gastrointestinal disorders (1 source) Chronic idiopathic constipation; 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: [Constipation, unspecified] Chronic Other gastrointestinal disorders (5 sources) Chronic constipation; 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: [Constipation, unspecified] Episodic Other gastrointestinal disorders (5 sources) Abdominal bloating; 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: [Flatulence, eructation, and gas pain] Episodic Other gastrointestinal disorders (1 source) Chronic idiopathic constipation; 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: [Chronic idiopathic constipation] Episodic Other gastrointestinal disorders (10 sources) Constipation; 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: [Constipation, unspecified] 03-30-2011 Episodic Other gastrointestinal disorders (1 source) Constipation, unspecified Episodic Other nervous system disorders (1 source) Other chronic pain; 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: [OTHER CHRONIC PAIN] Onset: 3 Chronic Other nervous system disorders (1 source) Other specified mononeuropathies; 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: [OTHER SPECIFIED MONONEUROPATHIES] Onset: 3 Chronic Other non-traumatic joint disorders (4 sources) Pain in left hip; 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: [PAIN IN LEFT HIP] Onset: 3 Episodic Other skin disorders (1 source) Localized swelling, mass and lump, neck Episodic Other upper respiratory disease (9 sources) Allergic rhinitis; 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: [Allergic rhinitis, unspecified] Onset: 9 03-03-2009 Chronic Other upper respiratory disease (1 source) Allergic rhinitis, unspecified Chronic Other upper respiratory infections (5 sources) Chronic bilateral maxillary sinusitis; 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: [Chronic maxillary sinusitis] Chronic Residual codes; unclassified (4 sources) Family history of diabetes mellitus; 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: [Family history of diabetes mellitus] 03-30-2011 Episodic Spondylosis; intervertebral disc disorders; other back problems (9 sources) Lumbosacral spondylosis without myelopathy; 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: [Spondylosis without myelopathy or radiculopathy, lumbosacral region] Onset: 9 01-24-2009 Chronic Substance-related disorders (9 sources) Tobacco dependence syndrome; 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: [Nicotine dependence, unspecified, uncomplicated] Onset: 2 09-17-2011 Chronic Thyroid disorders (4 sources) Multinodular goiter; 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: [Nontoxic multinodular goiter] Onset: 3 05-03-2013 Chronic Unclassified (4 sources) Elevated blood pressure; 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: [Elevated BP] Onset: 2 08-02-2011 Unclassified (1 source) Encounter for screening for malignant neoplasm of colon; 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: [Encounter for screening for malignant neoplasm of colon] Onset: 3 Unclassified (1 source) LOW BACK PAIN, UNSPECIFIED; 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: [LOW BACK PAIN, UNSPECIFIED] Onset: 2 Unclassified (1 source) CONTACT W/AND (SUSP) EXPOS COVID-19; 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: [CONTACT W/AND (SUSP) EXPOS COVID-19] Onset: 2 Unclassified (1 source) Other supraventricular tachycardia; 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: [Other supraventricular tachycardia] Onset: 3 Unclassified (1 source) Supraventricular tachycardia, unspecified; 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: [Supraventricular tachycardia, unspecified] Onset: 3 Past or Other Problems Problem Classification Problem Date Documented Da te Episodic/Chronic Immunizations and screening for infectious disease (1 source) Encounter for screening for human papillomavirus (HPV); 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: [ENC SCREENING HUMAN PAPILLOMAVIRUS] Onset: 2 Episodic Menopausal disorders (4 sources) Postmenopausal state; 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: [Hormone replacement therapy] Onset: 2 06-05-2012 Episodic Other aftercare (4 sources) Other penitentiary (current) drug therapy; 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: [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] Onset: 2 Episodic Other and unspecified benign neoplasm (4 sources) Polyp of colon; 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: [Polyp of colon] Onset: 9 03-04-2009 Episodic Other bone disease and musculoskeletal deformities (1 source) Other specified disorders of bone density and structure, right thigh; 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: [OT D/O BONE DEN STRUCT RT THIGH] Onset: 2 Episodic Other gastrointestinal disorders (1 source) Irritable bowel syndrome with constipation; 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: [Irritable bowel syndrome with constipation] Other non-traumatic joint disorders (4 sources) Bilateral wrist pain; 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: [Pain in right wrist] Onset: 8 07-14-2017 Episodic Other screening for suspected conditions (not mental disorders or infectious disease) (16 sources) Patient encounter status; 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: [Encounter for screening mammogram for malignant neoplasm of breast] Onset: 2 Episodic Residual codes; unclassified (4 sources) FH: premature coronary heart disease; 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: [Family history of ischemic heart disease and other diseases of the circulatory system] Onset: 2 09-17-2011 Episodic Residual codes; unclassified (4 sources) Family history of cancer of colon; 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: [Family history of malignant neoplasm of digestive organs] Onset: 7 03-28-2017 Episodic Residual codes; unclassified (1 source) Family history of malignant neoplasm of other organs or systems; 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: [FAM HX MALIG NEOPLASM OT ORGN/SYS] Onset: 2 Episodic Residual codes; unclassified (1 source) Family history of malignant neoplasm of trachea, bronchus and lung; 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: [FAM HX MALIG NEOPLSM TRACH BRON LNG] Onset: 2 Episodic Residual codes; unclassified (1 source) Family history of malignant neoplasm of digestive organs; 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: [FAM HX MALIG NEOPLASM DIGESTIV ORGN] Onset: 2 Episodic Spondylosis; intervertebral disc disorders; other back problems (10 sources) Dorsalgia, unspecified; 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: [Spinal stenosis] Onset: 9 03-04-2009 Episodic Syncope (4 sources) Syncope; 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: [Syncope and collapse] Onset: 2 09-17-2011 Episodic Unclassified (1 source) Chronic cough R05.3 Unclassified (1 source) Other supraventricular tachycardia; 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: [Other supraventricular tachycardia] Onset: 3 Unclassified (1 source) Supraventricular tachycardia, unspecified; 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: [Supraventricular tachycardia, unspecified] Onset: 3 NEGATED: Highlighted row has not occurred!Residual codes; unclassified (6 sources) Disease Episodic Results Test Name Value Interpretation Reference Range Facil ity Office Visiton 06-20-2023 Follow-up visit [id number] Didi Jaffe ra 1955 F Date Provider Department Center 06/20/2023 Abraham-JOSE VILLALOBOS [facility]ARD [facility] Family History Problem Relation Age of Onset Stroke Mother Hypertension Mother Cancer Mother Stroke Father Other Father Family Status - Relation Status Age at Mother Father Level of Service:20409 UT OFFICE/OUTPATIENT ESTABLISHED MOD MDM 30 MIN [facility] HPon 05-19-2023 HP H&P reviewed. The pa tient was examined and there are no changes to the H&P. [facility] HP H&P reviewed. The pa tient was examined and there are no changes to the H&P. [facility] NURSNOTEon 05-19-[address] Petersen for pt to discharge at this time. [facility] MAXIMUS RN educated pt on d/ c instructions. RN encouraged pt to voice any questions or concerns. Pt verbalizes no questions or concerns at this time. Pt was wheeled off of unit with all of belongings. Normal [facility] 04-26-2023 [facility] Cardiology Consul t Note Reason for visit: Palpitations, AT 04/26/2023 HPI: patient continues to endorse episodes of palpitations some of them lasting more than a few minutes. she reports having experienced one this morning which was markedly symptomatic for her and made her extremely short of breath. Event monitor from 02/15/2023 to 03/18/2023 revealed episodes of nonsustained atrial tachycardia of a few seconds. no A-fib or VT was seen. she is currently on metoprolol succinate 25 mg daily. She denies chest pain but she continues to abuse tobacco. EKG 01/12/23 Normal sinus rhythm, left anterior fascicular block, unable to rule out septal infarct or lateral infarct age undetermined 12/14/2022 sinus rhythm with incomplete right bundle branch block, left anterior fascicular block, septal infarct with age undetermined 04/10/2012 shows sinus rhythm with normal intervals ---- 06/29/22 HPI: Marly Jaffe is a 68 y.o. year old with past medical history of GERD and back pain had been ecperiencing palpitations. She had a 48hr Holter placed which revealed non sustained AT. She is a smoker and has anxiety for which she takes medications. She has felt better with meds and the time she wore Holter, she felt no plapitations. She usually feels them when she wakes up and lasts for a few minutes. EKG on 04/10/2012 shows sinus rhythm with normal intervals Holter monitor that was placed on 05/17/2022 shows the presence of nonsustained atrial tachycardia of 5-6 beats noted on 04/30/2022. There was another episode of 15 beat duration of SVT noted on 04/22/2022 at 9:32 PM and another 5 beats noted on 04/15/2022, PMH: Past Medical History: Diagnosis Date Abnormal ECG Anxiety GERD (gastroesophageal reflux disease) SVT (supraventricular tachycardia) PSH: Past Surgical History: Procedure Laterality Date BREAST SURGERY implants REPLACEMENT TOTAL KNEE ONCOLOGIC UTERINE FIBROID EMBOLIZATION SH: Social Determinants of Health Tobacco Use: High Risk (04/26/2023) Patient History Smoking Tobacco Use: Every Day Smokeless Tobacco Use: Never Passive Exposure: Current Alcohol Use: Not on file Financial Resource Strain: Not on file Food Insecurity: Not on file Transportation Needs: Not on file Physical Activity: Not on file Stress: Not on file Social Connections: Not on file Intimate Partner Violence: Not on file Depression: Not on file Housing Stability: Not on file Allergies: Allergies Allergen Reactions Prochlorperazine Other Other reaction(s): Other (See Comments) seizures seizures Tramadol Other and Rash Other reaction(s): GI Intolerance, GI Upset n/v Amoxicillin-Pot Clavulanate Rash Hydroxychloroquine Rash Sulfa (Sulfonamide Antibiotics) Rash Weight: No results found for: PTWEIGHT Meds: Current Outpatient Medications on File Prior to Visit Medication Sig Dispense Refill albuterol 90 mcg/actuation inhaler Inhale 2 puffs every 4 (four) hours if needed. alendronate (Fosamax) 35 mg tablet Take 35 mg by mouth in the morning. ALPRAZolam (Xanax) 0.5 mg tablet Take 0.5 mg by mouth if needed in the morning, at noon, and at bedtime. amLODIPine (Norvasc) 5 mg tablet Take 1 tablet (5 mg) by mouth in the morning. 30 tablet 11 aspirin 81 mg EC tablet Take 81 mg by mouth in the morning. calcium carbonate-vitamin D3 600 mg-10 mcg (400 unit) tablet Take by mouth. cholecalciferol, vitamin D3, 50 mcg (2,000 unit) capsule Take 2,000 Units by mouth in the morning. coenzyme Q-10 100 mg capsule Take 100 mg by mouth in the morning. diclofenac (Voltaren) 1 % topical gel Apply 2 g topically 4 times a day. fluticasone (Flonase) 50 mcg/actuation nasal spray Administer 2 sprays into each nostril in the morning. meloxicam (Mobic) 15 mg tablet TAKE 1 TABLET EACH MORNING methocarbamol (Robaxin) 500 mg tablet Take 500 mg by mouth. metoprolol succinate XL (Toprol-XL) 25 mg 24 hr tablet Take 1.5 tablets (37.5 mg) by mouth in the morning. Do not crush or chew. (Patient taking differently: Take 25 mg by mouth in the morning. Do not crush or chew.) 135 tablet 3 montelukast (Singulair) 10 mg tablet Take 10 mg by mouth in the morning. multivitamin tablet Take by mouth. omeprazole (PriLOSEC) [address] capsule Take by mouth in the morning. ibuprofen/diphenhydramine cit (ADVIL PM ORAL) Take by mouth. No current facility-administered medications on file prior to visit. ROS: Review of Systems Cardiovascular: Positive for chest pain, dyspnea on exertion, irregular heartbeat and palpitations. Respiratory: Positive for shortness of breath. All other systems reviewed and are negative. Physical Exam: Constitutional General Appearance: well-nourished, well-developed, appears stated age Level of Distress: comfortable Psychiatric Mental Status: alert, normal affect Orientation: oriented to (more content not included)... Normal [facility] Office Visiton 04-26-2023 Follow-up visit [id number] Didi Jaffe ra 1955 F Date Provider Department Center 04/26/2023 241-KIERAN PETERSEN Family History Problem Relation Age of Onset Stroke Mother Hypertension Mother Cancer Mother Stroke Father Other Father Family Status - Relation Status Age at Mother Father Level of Service:73940 UT OFFICE/OUTPATIENT ESTABLISHED HIGH MDM 40-54 MIN Normal [facility] Office Visiton 02-16-2023 Follow-up visit [id number] Didi Jaffe ra 1955 Date Provider Department Center 02/16/2023 1596-JOSE VILLALOBOS Family History Problem Relation Age of Onset Stroke Mother Hypertension Mother Cancer Mother Stroke Father Other Father Family Status - Relation Status Age at Mother Father Level of Service:18258 UT OFFICE/OUTPATIENT ESTABLISHED MOD MDM 30-39 MIN Normal [facility] Office Visiton 01-12-2023 Follow-up visit [id number] Didi Jaffe ra 1955 F Date Provider Department Center 01/12/2023 JOSE CASTILLO SUSANA [facility] Family History Problem Relation Age of Onset Stroke Mother Hypertension Mother Cancer Mother Stroke Father Other Father Family Status - Relation Status Age at Mother Father Level of Service:88990 UT OFFICE/OUTPATIENT ESTABLISHED MOD MDM 30-39 MIN Reason for Visit and Comments: Follow-up [220043] - 1 month follow up Normal [facility] Office Visiton 12-14-2022 Follow-up visit [id number] Didi Jaffe ra [place] 1955 Date Provider Department Center 12/14/2022 KAYY RICARDO CARD [facility] Family History Problem Relation Age of Onset Stroke Mother Hypertension Mother Cancer Mother Stroke Father Other Father Family Status - Relation Status Age at Mother Father Level of Service:63113 UT OFFICE/OUTPATIENT ESTABLISHED MOD MDM 30-39 MIN Reason for Visit and Comments: Palpitations [450281] Normal [facility] CT LUNG CANCER SCREENINGon 0 08-04-2022 CT LUNG CANCER SCREENING EXAMINATION: CT LUNG CANCER SCREENING HISTORY: Tobacco dependence caused by cigarettes COMPARISON: No relevant comparison available. TECHNIQUE: Axial, Coronal, and Sagittal images were created without the administration of IV contrast material. Dose reduction techniques were achieved by using automated exposure control and/or adjustment of mA and/or kV according to patient size and/or use of iterative reconstruction technique. FINDINGS: LUNGS: Fiber stranding within posterior lung bases bilaterally. 1.2 cm nodule versus scarring within right posterior costophrenic angle. 6 mm nodule adjacent the pleura within the lateral left lower lobe, not overtly suspicious. PLEURA: No mass, effusion, or pneumothorax. VASCULATURE: No abnormality. MARYBEL: No mass or pathologic adenopathy. MEDIASTINUM: No mass or pathologic adenopathy. CARDIAC: No enlargement, pericardial thickening, or significant calcification. AORTA: No aneurysm or dissection. CHEST WALL: No mass or axillary adenopathy BONES: No bone lesion or fracture. LIMITED ABDOMEN: No suspicious findings. Limited images of the upper abdomen. OTHER: Negative. IMPRESSION: 1. Lung-RADS Category 3- Probably benign. Probably benign finding(s)- short term follow up suggested; includes nodules with a low likelihood of becoming a clinically active cancer. Six month LDCT. 2. Posterior right lung base findings likely represent scarring, but malignancy cannot be excluded. Consider follow-up CT chest in 3-6 months to document stability. Alternatively, PET imaging could be performed at this time. Electronically authenticated by: ÁNGEL PUGH Date: 2022-08-04 14:41 Normal [facility] XR RIBS BIL_PA CH 4V OR GRon 08-04-2022 XR RIBS BIL_PA CH 4V OR GR EXAMINATION: XR RIBS BIL_PA CH 4V OR GR HISTORY: Chest pain , chronic upper back pain, left rib pain, no known injury COMPARISON: CT chest 08/04/2022 FINDINGS: LUNGS: Mild scarring within lung bases. PLEURA: No pneumothorax, effusion, or pleural thickening. MEDIASTINUM: No visible mass or adenopathy. CARDIAC: No cardiomegaly or cardiac silhouette abnormality. RIBS: No fracture or bone lesion. OTHER: Negative. IMPRESSION: 1. No acute cardiopulmonary process. Scarring within lung bases, best seen on today's CT study, with possible nodule/mass within right posterior costophrenic angle. Please see CT lung cancer screening 08/04/2022 report. 2. No rib fracture or lesion. Electronically authenticated by: ÁNGEL PUGH Date: 2022-08-04 14:45 Normal [facility] XR TSPINE MIN 4 VIEWSon XR TSPINE MIN 4 VIEWS EXAMINATION: XR TS PINE MIN 4 VIEWS HISTORY: Pain in thoracic spine COMPARISON: No relevant comparison available. FINDINGS: BONES: No significant spondylosis, scoliosis, fracture, or visible bony lesion. DISC SPACES: No significant disc height narrowing, subluxation, or endplate abnormality. PARASPINOUS: Negative. No paraspinous abnormality is seen. OTHER: Negative. IMPRESSION: 1. No acute or suspicious findings. 2. Minimal degenerative changes. Electronically authenticated by: ÁNGEL PUGH Date: 2022-08-04 14:42 Normal [facility] [place] 07-29-2022 L Specimen: [id number] Received: 07/29/22 Status: HUY Malonewinifred Num: [id number] Spec Type: Surgical Subm Dr: Ernrique Grant MD Tissues: A Colon Biopsy (POLYP SIGMOID) Procedures: HE/2, Gross/Micro L4 Age/ Patient Sex Location Account Attending Physician Marly Jaffe 67/F [id number] Enrrique Grant MD SPEC NUM: [id number] RECD: 07/29/22 STATUS: HUY DINAH NUM: [id number] SALOMON: 07/29/22- SUBM DR: Enrrique Grant MD ENTERED: 07/29/[address]: SPEC TYPE: Surgical DEPT: S ORDERED: HE/2, Gross/Micro L4 ORDERED: HE/2, Gross/Micro L4 Pathological Diagnosis Colon, sigmoid, polypectomy: - Colonic mucosa with hyperplastic features and foreign material, possibly from food or pill fragments. Clinical Information Constipation, colon polyp history, family history Gross Description Received in formalin labeled with the patient's name, number and sigmoid polyp is one fragment of soft craig tissue measuring 0.5 cm admixed with fecal material. Entirely submitted in one cassette labeled A1. Microscopic Description Two glass slides with H E stained material have been examined. The microscopic findings support the above pathologic diagnosis. CPT Codes 09558 Specimen: [id number] Received: 07/29/22 Status: HUY Dinah Num: [id number] Spec Type: Surgical Subm Dr: Enrrique Grant MD Tissues: A Colon Biopsy (POLYP SIGMOID) Procedures: ANGELICA/Deborah, Gross/Micro L4 Patient: Marly Jaffe [id number] (Continued) Signed (signature on file) Benjamin Wolf MD 07/30/22 1133 Normal [facility] ECHOCARDIO M/2D COMPLETEon 0 07-13-2022 ECHOCARDIO M/2D COMPLETE Patient: MARLY JAFFE Exam Date: 07/13/2022 : 1955 Gender:F Ordering : KIERAN PETERSEN Admission #: [id number] Family : Order #: [id number] CLICK HERE TO VIEW EXAM ECHOCARDIOGRAM REPORT PROCEDURE: CARDIO PULMONARY ECHOCARDIO M/2D COMP INDICATIONS: Supraventricular tachycardia, smoker COMPARISON: None. DESCRIPTION: COMPLETE ECHOCARDIOGRAM Real-time transthoracic echocardiography with 2D, M-mode, spectral and color flow Doppler performed. QUALITY: Technical quality was good. 63 130# BP 142 LEFT VENTRICLE: Normal chamber size. Normal left ventricular wall thickness. Global left ventricular systolic function is normal. LV EF: Normal left ventricular ejection fraction, (>55%). DIASTOLIC: Normal diastolic function. ATRIAL SEPTUM: Visually appears intact. LEFT ATRIUM: Normal chamber size. RIGHT ATRIUM: Normal chamber size. RIGHT VENTRICLE: Normal chamber size. Normal right ventricular systolic function. TRICUSPID VALVE: Normal mobility and thickness. No stenosis with no regurgitation. Unable to assess right-sided pressures due to lack of measurable tricuspid regurgitation. MITRAL VALVE: Normal mobility and thickness. No evidence of mitral valve stenosis. There is no mitral annular calcification. No mitral regurgitation. AORTIC VALVE: Normal trileaflet appearance. No visible sclerosis. Normal leaflet mobility. No evidence of aortic valve stenosis. Trivial aortic regurgitation. AORTIC ROOT: Normal diameter and appearance. PULMONIC VALVE: Normal thickness and mobility. No stenosis. No regurgitation. PERICARDIUM: No evidence of pericardial effusion. IVC: Collapses with inspirations. CONCLUSION: Global left ventricular systolic function is normal; visually estimated ejection fraction is 55 to 60%. No significant wall motion abnormalities. Normal diastolic function. The right ventricle is normal in size and systolic function. Unable to assess right-sided pressures due to lack of measurable tricuspid regurgitation. No significant valvular abnormalities. Adult Echocardiography Procedure Report Left Ventricle LVEDD (3.7 - 5.6 cm): 3.15 cm LVESD (2.2 - 4.0 cm): 2.24 cm LVIVS thickness (0.6 - 1.2 cm): 0.84 cm LVPW thickness (0.5 - 1.0 cm): 0.82 cm e': 0.10 m/s E - e': 6.03 LVOT Max Gradient: 4.83 mm[Hg], 5.13 mm[Hg], 4.83 mm[Hg], 5.13 mm[Hg] Peak Velocity (LVOT): 1.10 m/s, 1.13 m/s, 1.10 m/s, 1.13 m/s Mean Velocity (LVOT): 0.76 m/s, 0.88 m/s, 0.76 m/s, 0.88 m/s LVOT Diameter 2.10 cm Left Ventricular Ejection Fraction: 56.88 %, 56.88 % Left Atrium LA Volume Index (2D A2C): 29.33 ml, 29.33 ml Left Atrium Systolic Dimension: 2.48 cm Mitral Valve MV E to A Ratio: 0.69 Mitral Valve A-Wave Peak Velocity: 0.88 m/s Mitral Valve E-Wave Peak Velocity: 0.60 m/s Right Ventricle Aorta AO Root Diam: 3.46 cm Aortic Valve AoV Area (Peak Emmanuel): 2.98 cm2, 2.94 cm2 AoV Area (VTI): 2.78 cm2, 2.85 cm2 Peak Velocity(Antegrade Flow): 1.30 m/s Peak Gradient(Antegrade Flow): 6.71 mm[Hg] Mean Velocity(Antegrade Flow): 0.96 m/s Mean Gradient(Antegrade Flow): 4.10 mm[Hg] Velocity Time Integral: 28.34 cm Tricuspid Valve Peak Velocity: 0.36 m/s Pulmonic Valve Peak Velocity: 1.03 m/s, 1.00 m/s Peak Gradient: 4.28 mm[Hg], 4.04 mm[Hg] Right Atrium Right Atrium Systolic Pressure: 21.08 ml, 21.08 ml Dictated by: Bharath Mak M.D. on 07/15/2022 at 10:30 Approved by: Bharath Mak M.D. on 07/15/2022 at 10:33 Normal [facility] Orders Onlyon 07-12-2022 Orders Only [id number] Didi Jaffe ra 1955 F Date Provider Department Center 07/12/2022 Phoebe-KYLE PALACIOS [facility] No family history on file Normal [facility] Office Visiton 06-29-2022 Follow-up visit [id number] Didi Jaffe ra S 1955 F Date Provider Department Center 06/29/2022 Carli-KIERAN PETERSEN [facility] No family history on file Level of Service:70676 UT OFFICE/OUTPATIENT NEW MODERATE MDM 45-59 MINUTES Reason for Visit and Comments: Palpitations [753736] - Pt states she has a rapid heart and due to the results of the heart monitor she was referred here. Normal [facility] MG MAMM SCREEN 3D LAWRENCE CADon 06-23-2022 MG MAMM SCREEN 3D [place]WR[place] CAD Patient: MARLY JAFFE Exam Date: 06/23/2022 : 1955 Gender:F Ordering : DR MERCY MORGAN . Admission #: [id number] Family : Order #: [id number] CLICK HERE TO VIEW EXAM RADIOLOGY REPORT PROCEDURE: MAMMOGRAM SCREENING 3D BILATERAL CAD COMPARISON: MG MAMM DIAGNOSTIC 3D LAWRENCE CAD, 06/17/2021. INDICATIONS: Screening mammography Calculator Name NCI Breast Cancer Risk Assessment Tool 5 Year Breast Cancer Risk 1.20% Lifetime Breast Cancer Risk 4.40% Personal Breast Cancer No Personal Ovarian Cancer No Treatments None Family Cancers Sister with liver cancer at age 66; Sister with lung cancer at age 52; Brother with colon cancer at age 50. LOCATION: [facility] BREAST COMPOSITION: Scattered areas fibroglandular density. FINDINGS: DIAGNOSTIC CATEGORY 2--BENIGN FINDING: RIGHT BREAST: No significant suspicious finding. This exam includes additional mammographic views for implant evaluation and shows no visible implant abnormality. No significant change has occurred. LEFT BREAST: No significant suspicious finding. This exam includes additional mammographic views for implant evaluation and shows no visible implant abnormality. No significant change has occurred. RECOMMENDATIONS: ROUTINE MAMMOGRAM AND CLINICAL EVALUATION IN 12 MONTHS. PLEASE NOTE: A NORMAL MAMMOGRAM DOES NOT EXCLUDE THE POSSIBILITY OF BREAST CANCER. A CLINICALLY SUSPICIOUS PALPABLE LUMP SHOULD BE BIOPSIED. Dictated by: Ángel Pugh M.D. on 06/23/2022 at 14:15 Approved by: Ángel Pugh M.D. on 06/23/2022 at 14:39 Normal [facility] PAP ACOG PANEL 2: 30 to 65on 06-23-2022 . . Normal [facility] ospital Comment on above: Performed By: #### [id number] #### [facility] [address] [place] [address] Dr. Jeramy Dumont Age Gdln ACOG Testing Comment Normal [facility] Comment on above: Result Comment: <21 or >65 or no age provided Performed By: #### [id number] #### [facility] [address] [place] [address] Dr. Jeramy Dumont DIAGNOSIS: Comment Normal [facility] ospital Comment on above: Result Comment: NEGA TIVE FOR INTRAEPITHELIAL LESION OR MALIGNANCY. REACTIVE CELLULAR CHANGES AND/OR REPAIR ARE PRESENT. Performed By: #### [id number] #### [facility] [address] [place] [address] Dr. Jeramy Dumont Electronically signed by: Comment Normal [facility] Comment on above: Result Comment: Bere Aguilar MD, Pathologist Performed By: #### [id number] #### [facility] [address] [place] [address] Dr. Jeramy Dumont Methodology: Comment Normal [facility] Comment on above: Result Comment: This liquid based ThinPrep(R) pap test was screened with the use of an image guided system. Performed By: #### [id number] #### [facility] [address] [place] [address] Dr. Jeramy Dumont Note: Comment Normal [facility] Comment on above: Result Comment: The Pap smear is a screening test designed to aid in the detection of premalignant and malignant conditions of the uterine cervix. It is not a diagnostic procedure and should not be used as the sole means of detecting cervical cancer. Both false-positive and false-negative reports do occur. . Performed By: #### [id number] #### [facility] [address] [address] [address] Jeramy Dumont Performed by: Comment Normal [facility] Comment on above: Result Comment: Norma Mancia Insurance Billing Specialist (ASCP) Performed By: #### [id number] #### [facility] [address] [address] [address] Jeramy Dumont Specimen adequacy: Comment Normal [facility] Comment on above: Result Comment: Sati sfactory for evaluation. Endocervical and/or squamous metaplastic cells (endocervical component) are present. Performed By: #### [id number] #### [facility] [address] [address] [address] Jeramy Dumont XR DEXA BONE DENSITYon 06-23 XR DEXA BONE DENSITY EXAMINATION: XR DEX A BONE DENSITY, 06/23/2022 9:55 AM EST HISTORY: Screening for osteoporosis COMPARISON: None. TECHNIQUE: Dual-energy X-ray absorptiometry (DEXA) bone density study performed for the axial skeleton. FINDINGS: SPINE ANALYSIS: Average bone mineral density is 1.136 g/cm2. T-score (standard deviation relative to young adult mean): -0.5 . HIP ANALYSIS: Lowest bone mineral density is within the right femoral neck, 0.868 g/cm2. T-score (standard deviation relative to young adult mean): -1.2 . IMPRESSION: World Cj Organization Classification: Osteopenia - Moderate Fracture Risk Electronically authenticated by: ÁNGEL PUGH Date: 2022-06-23 11:46 Normal [facility] l CBC AUTO DIFFon 04-27-2022 BASO # 0.1 103/ul Normal 0.0-0.1 [facility] ospital Comment on above: Performed By: #### C BC ####[facility] [address] [place] [address]Dr. Jeramy Dumont Basophils/100 WBC (Bld) 0.6 % Normal 0.2-2.0 [facility] Comment on above: Performed By: #### C BC ####[facility] [address] [place] [address]Dr. Jeramy Dumont EO # 0.2 103/ul Normal 0.0-0.7 [facility] ospital Comment on above: Performed By: #### C BC ####[facility] Ieklupqmaf[address] [place], [place] [address]Dr. Jeramy Dumont Eosinophils/100 WBC (Bld) 1.9 % Normal 0.9-7.0 [facility] Comment on above: Performed By: #### C BC ####[facility] J[address]akeecpc[address] [place], [place] [address]Dr. Moniquelaura Tim Erythrocyte distribution wid th (RBC) [Ratio] 13.3 % Normal 11.0-15.0 [facility] Comment on above: Performed By: #### C BC ####[facility] Dnerzftnyz[address] [place], [place] [address]Dr. Jeramy Dumont Hematocrit (Bld) [Volume fraction] 41.1 % Normal 3 6.0-48.0 [facility] Comment on above: Performed By: #### C BC ####[facility] Uyhtcanxvr[address] [place], [place] [address]Dr. Moniquelaura Dumont Hemoglobin (Bld) [Mass/Vol] 13.4 g/dL Normal 12.0-16. 0 [facility] Comment on above: Performed By: #### C BC ####[facility] Mexsq[address] [place], [place] [address]Dr. Jeramy Dumont IG # 0.02 10e3/ul Normal 0.00-0.03 [facility] Comment on above: Performed By: #### C BC ####[facility] Cckplijwvj[address] [place], [place] [address]Dr. Jeramy Dumont IG % 0.2 % Normal 0.0-0.5 [facility] ospital Comment on above: Performed By: #### C BC ####[facility] Ebdxlhbt[address] [place], [place] [address]Dr. Jeramy Dumont LYMPH # 3.2 103/ul Normal 1.2-3.8 [facility] ospital Comment on above: Performed By: #### C BC ####[facility] Qiidagjzrj504[address] [place], [place] [address]Dr. Jeramy Dumont Lymphocytes/100 WBC (Bld) 39.1 % Normal 20.5-60.0 [facility] Comment on above: Performed By: #### C BC ####[facility] [address] [place] [address]Dr. Jeramy Dumont MANUAL DIFF REQ NO Normal [facility] Comment on above: Performed By: #### C BC ####[facility] [address] [place] [address]Dr. Jeramy Dumont MCH (RBC) [Entitic mass] 30.7 pg Normal 26.7-34.0 [facility] Comment on above: Performed By: #### C BC ####[facility] Ztncdhmapx[address] [place], [place] [address]Dr. Jeramy Dumont MCHC (RBC) [Mass/Vol] 32.6 g/dL Normal 29.9-35.2 [facility] Comment on above: Performed By: #### C BC ####[facility] Cxzzfqfjuc[address] [place], [place] [address]Dr. Jeramy Dumont MCV (RBC) [Entitic vol] 94.3 fL Normal 81.0-99.0 [facility] Comment on above: Performed By: #### C BC ####[facility] Czijwudmya[address] [place], [place] [address]Dr. Jeramy Dumont MONO # 0.6 103/ul Normal 0.3-0.8 [facility] ospital Comment on above: Performed By: #### C BC ####[facility] Fcdvkcbgij[address] [place], [place] [address]Dr. Jeramy Dumont Monocytes/100 WBC (Bld) 6.6 % Normal 1.7-12.0 [facility] Comment on above: Performed By: #### C BC ####[facility] Pusmbyxhlg[address] [place], [place] [address]Dr. Jeramy Dumont NEUT # 4.3 103/ul Normal 1.4-6.5 [facility] ospital Comment on above: Performed By: #### C BC ####[facility] Ww[address]usf[address] [place], [place] [address]Dr. Jeramy Dumont Neutrophils/100 WBC (Bld) 51.6 % Normal 43.0-75.0 [facility] Comment on above: Performed By: #### C BC ####[facility] [address] [place] [id number]. Jeramy Dumont Platelet mean volume (Bld) [Entitic vol] 9.8 fL Normal 9.5-13.5 [facility] Comment on above: Performed By: #### C BC ####[facility] [address] [place] [id number]. Jeramy Dumont PLT 283 103/ul Normal 150-450 [facility] Comment on above: Performed By: #### C BC ####[facility] Wiksqqrbcr[address] [place], [place] [address]Dr. Jeramy Dumont RBC 4.36 106/ul Normal 4.20-5.40 [facility] Comment on above: Performed By: #### C BC ####[facility] Okhvadbi[address] [place], [place] [address]Dr. Jeramy Dumont WBC 8.3 103/ul Normal 4.0-11.0 [facility] Comment on above: Performed By: #### C BC ####[facility] Jjtlfyslvj[address] [place], [place] [address]Dr. Jeramy Dumont FREE T3on 04-27-2022 FREE T3 2.20 pg/mlL Normal 2.18-3.98 [facility] Comment on above: Performed By: #### F T3, TSH, BMP, LIVER ####[facility] [address] [place] [id number]. Jeramy Dumont FREE T4on 04-27-2022 Free T4 [Mass/Vol] 0.96 ng/dL Normal 0.76-1.46 [facility] Comment on above: Performed By: #### F T4 ####[facility] Hykignbull[address] [place], [place] [address]Dr. Jeramy Dumont LIVER PROFILEon 04-27-2022 Albumin [Mass/Vol] 3.7 g/dL Normal 3.4-5.0 [facility] Comment on above: Performed By: #### F T3, TSH, BMP, LIVER #### [facility] [address] [place] [address] Dr. Jeramy Dumont Albumin/Globulin [Mass ratio] 1.1 {ratio} Normal [facility] Comment on above: Performed By: #### F T3, TSH, BMP, LIVER #### [facility] [address] [place] [address] Dr. Jeramy Dumont ALP [Catalytic activity/Vol] 64 U/L Normal 46-116 [facility] Comment on above: Performed By: #### F T3, TSH, BMP, LIVER #### [facility] [address] [place] [address] Dr. Jeramy Dumont ALT [Catalytic activity/Vol] 28 U/L Normal 14-59 [facility] Comment on above: Performed By: #### F T3, TSH, BMP, LIVER #### [facility] [address] [place] [address] Dr. Jeramy Dumont AST [Catalytic activity/Vol] 16 U/L Normal 15-37 [facility] Comment on above: Performed By: #### F T3, TSH, BMP, LIVER #### [facility] [address] [place] [address] Dr. Jeramy Dumont BILI, CONJUGATED 0.1 mg/dL Normal 0.0-0.2 [facility] Comment on above: Performed By: #### F T3, TSH, BMP, LIVER #### [facility] [address] [place] [address] Dr. Jeramy Dumont Bilirubin [Mass/Vol] 0.2 mg/dL Normal 0.2-1.0 [facility] Comment on above: Performed By: #### F T3, TSH, BMP, LIVER #### [facility] [address] [place] [address] Dr. Jeramy Dumont Globulin (S) [Mass/Vol] 3.5 g/dL Normal T [facility] Comment on above: Performed By: #### F T3, TSH, BMP, LIVER #### [facility] [address] [place] [address] Dr. Jeramy Dumont Protein [Mass/Vol] 7.2 g/dL Normal 6.4-8.2 [facility] Comment on above: Performed By: #### F T3, TSH, BMP, LIVER #### [facility] [address] [place] [address] Dr. Jeramy Dumont PROF CHEM 8 (BAS METB)on Anion gap [Moles/Vol] 10.3 mmol/L Normal [facility] Comment on above: Performed By: #### F T3, TSH, BMP, LIVER #### [facility] [address] [address] [address] Jeramy Dumont Calcium [Mass/Vol] 9.0 mg/dL Normal 8.5-10.1 [facility] Comment on above: Performed By: #### F T3, TSH, BMP, LIVER #### [facility] [address] [place] [address] Dr. Jeramy Dumont Chloride [Moles/Vol] 105 mmol/L Normal 98-107 [facility] Comment on above: Performed By: #### F T3, TSH, BMP, LIVER #### [facility] [address] [address] [address] Jeramy Dumont CO2 [Moles/Vol] 30.7 mmol/L Normal 21.0-32.0 [facility] Comment on above: Performed By: #### F T3, TSH, BMP, LIVER #### [facility] [address] [place] [address] Dr. Jeramy Dumont Creatinine [Mass/Vol] 0.85 mg/dL Normal 0.55-1.02 [facility] Comment on above: Performed By: #### F T3, TSH, BMP, LIVER #### [facility] [address] [place] [address] Dr. Jeramy Dumont EGFR-AF IRISH >60 Normal >=60 [facility] Comment on above: Performed By: #### F T3, TSH, BMP, LIVER #### [facility] [address] [address] [address] Jeramy Dumont EGFR-NON AF IRISH >60 Normal >=60 [facility] Comment on above: Performed By: #### F T3, TSH, BMP, LIVER #### [facility] [address] [address] [address] Jeramy Dumont Glucose [Mass/Vol] 101 mg/dL Normal 74-106 [facility] Comment on above: Performed By: #### F T3, TSH, BMP, LIVER #### [facility] [address] [address] [address] Jeramy Dumont Potassium [Moles/Vol] 4.0 mmol/L Normal 3.5-5.1 [facility] Comment on above: Performed By: #### F T3, TSH, BMP, LIVER #### [facility] [address] [address] [address] Jeramy Dumont Sodium [Moles/Vol] 142 mmol/L Normal 136-145 [facility] Comment on above: Performed By: #### F T3, TSH, BMP, LIVER #### [facility] [address] [address] [address] Jeramy Dumont Urea nitrogen [Mass/Vol] 15.0 mg/dL Normal 7.0-18.0 [facility] Comment on above: Performed By: #### F T3, TSH, BMP, LIVER #### [facility] [address] [address] [address] Jeramy Dumont Urea nitrogen/Creatinine [Mass ratio] 17.6 mg/mg Normal [facility] Comment on above: Performed By: #### F T3, TSH, BMP, LIVER #### [facility] [address] [address] [address] Jeramy Dumont TSHon 04-27-2022 TSH 0.960 uIU/mL Normal 0.358-3.740 [facility] [place] [facility] Comment on above: Performed By: #### F T3, TSH, BMP, LIVER ####[facility] [address] [place] [address]Dr. Jeramy Dumont [facility]on [facility]-03 SARS-CoV-2 (COVID-19) RNA TRAVON+probe Ql (Unsp spec) Not detected Normal NOT DETECTED [facility] Comment on above: Result Comment: This test is not yet approved or cleared by the [place] FDA. When there are no FDA-approved or cleared tests available, and other criteria are met, FDA can make tests available under an emergency access mechanism called an Emergency Use Authorization (EUA). The EUA for this test is supported by the [employer] of Health and Human Service's (HHS's) declaration that circumstances exist to justify the emergency use of in vitro diagnostics for the detection and/or diagnosis of the virus that causes COVID-19. This EUA will remain in effect (meaning this test can be used) for the duration of the COVID-19 declaration justifying emergency of IVDs, unless it is terminated or revoked by FDA (after which the test may no longer be used). When diagnostic testing is negative, the possibility of a false negative should be considered in the context of a patient's recent exposures and the presence of clinical signs and symptoms consistent with SARS-CoV-2. Performed By: #### C [facility] ####[facility] [address] [place], [place] [address]Nz. Jeramy Dumont Established Visit (Gastroent erology)on 04-30-2020 Established Visit (Gastroenterology) Diagnoses/Problems Assessed Chronic idiopathic constipation (564.00) (K59.04) Esophageal reflux (530.81) (K21.9) Orders Chronic idiopathic constipation Start: Amitiza 8 MCG Oral Capsule; Take 1 capsule twice daily Rx By: Krzysztof Larkin; Dispense: 0 Days ; #:60 Capsule; Refill: 1;For: Chronic idiopathic constipation; ASHLYN = N; [facility]; Last Updated By: [employer]; 04/30/2020 1:37:03 PM Esophageal reflux Renew: Omeprazole 20 MG Oral Capsule Delayed Release; TAKE 1 CAPSULE DAILY Rx By: Krzysztof Larkin; Dispense: 0 Days ; #:90 Capsule; Refill: 1;For: Esophageal reflux; ASHLYN = N; Verified Transmission to [id number]; Last Updated By: [employer]; 04/30/2020 1:37:11 PM Patient Discussion/Summary Change omeprazole to 30 minutes before dinner Start Amitiza 8 g twice daily Follow-up in the office as needed Provider Impressions Patient with chronic idiopathic constipation. Has had some side effects with cramping even with low-dose Linzess. I will place her on trial of Amitiza 8 g twice daily instead. I asked her to change her omeprazole to 30 minutes before dinner to try to help with her nighttime symptoms. She'll see me back otherwise in the office as needed. She is in agreement with the plan. Chief Complaint Follow-up constipation and reflux History of Present IllnessPatient with IBS and chronic constipation as well as GERD here for follow-up. In the past has tried Linzess for constipation but even at low-dose 72 g dose continues to have some urgency and cramping. Uses omeprazole before bed. Intermittently has nighttime coughing. No dysphagia or odynophagia. Colonoscopy last year without significant lesions. She has family history of colorectal cancer. Review of Systems Constitutional: no fever, no chills, not feeling tired and no recent weight loss. Eyes: no yellow sclera/jaundice. ENT: no lymphadenopathy. Cardiovascular: no shortness of breath and no chest pain. Respiratory: no cough. Gastrointestinal: as noted in HPI. Musculoskeletal: no joint swelling. Integumentary: no rashes, no skin lesions and was no jaundiced. Neurological: no headache. Psychiatric: no anxiety and no depression. Hematologic/Lymphatic: no tendency for easy bleeding and no tendency for easy bruising. All other systems have been reviewed and are negative for complaint. Active Problems Problems Bloating (787.3) (R14.0) Chronic constipation (564.00) (K59.09) Chronic idiopathic constipation (564.00) (K59.04) Dyspepsia (536.8) (R10.13) Esophageal reflux (530.81) (K21.9) IBS (irritable bowel syndrome) (564.1) (K58.9) Irritable bowel syndrome with constipation (564.1) (K58.1) Lymphocytic colitis (558.9) (K52.89) Past Medical History Problems History of Celiac disease (579.0) (K90.0) Resolved Date: 21 Dec 2013 Social History Problems Denied: History of Alcohol use (V49.89) (Z72.89) Current every day smoker (305.1) (F17.200) 2 ppd x 20 yrs Allergies Medication Compazine Recorded By: Lisa Sewell; 08/25/2018 3:12:47 PM Sulfa Drugs Recorded By: Krzysztof Larkin; 11/16/2013 6:00:27 PM Current Meds Medication NameInstruction Advil TABSTAKE 2 TABLETSPO QHS Benadryl 25 MG TABSTAKE 1 TABLET AT BEDTIME. Diclofenac Sodium 1 % Transdermal Gel Fluticasone Propionate 50 MCG/ACT Nasal Suspension Linzess 72 MCG Oral CapsuleTAKE 1 CAPSULE Daily Magnesium CAPS Melatonin 10 MG Oral Tablet Omeprazole 20 MG Oral Capsule Delayed ReleaseTAKE 1 CAPSULE BY MOUTH EVERY DAY LAST REFILL UNTIL SEEN IN OFFICE Womens One Daily Oral Tablet Vitals Vital Signs Recorded: 30Apr2020 01:17PM Twsqfhdysxv40 F Height5 ft 3 in Qxmstt987 lb BMI Ztcjuqxfcn88.74 BSA Calculated1.63 Physical Exam Constitutional General appearance: In no acute distress . Eyes Anicteric Sclerae . Ears, Nose, Mouth, and Throat Oropharynx without lesions. Neck Supple, no lymphadenopathy. Pulmonary Auscultation of lungs: Clear. Cardiovascular Auscultation of heart: RRR without murmur. Examination of extremities for edema: Normal. Abdomen Soft, non-tender. Bowel sounds normal. No hepatomegaly or splenomegaly. Skin No specific lesions, no spider angiomata or palmar erythema. Psychiatric patient alert. judgement was appropriate. insight appropriate. Signatures Electronically signed by : Krzysztof Larkin MD; Apr 30 2020 1:41PM EST (Author) Normal Touchworks MRI BRAIN WO/W IVCONon 02-13 [facility] C-Reactive Proteinon 019 CRP mass conc mg/L Normal 0.0-0.4 [facility] Comment on above: Performed By: #### C BCDIF, CRP #### [facility] [address] [place] [address] #### WSR #### [facility] [address] [place], [place] [address] CBC and Differentialon 10-31 Abs Baso 0.05 k/uL Normal <0.11 [facility] Comment on above: Performed By: #### C BCDIF, CRP #### [address] [place] [address] #### WSR #### [facility] [address] [phone] Abs Bell 0.49 k/uL Normal <0.87 [facility] Comment on above: Performed By: #### C BCDIF, CRP #### [address] [place] [address] #### WSR #### [place] [phone] Abs Neut 6.28 k/uL Normal 1.45-7.50 [facility] Comment on above: Performed By: #### C BCDIF, CRP #### [address] [place] [address] #### WSR #### [place] [phone] Absolute nRBC <0.01 Normal <0.01 [facility] Comment on above: Performed By: #### C BCDIF, CRP #### [address] [place] [address] #### WSR #### [place] [address] [place] [phone] Basophils/100 WBC (Bld) 0.6 % Normal [facility] Comment on above: Performed By: #### C BCDIF, CRP #### [address] [place] [address] #### WSR #### [place] [address] [place] [phone] DTYPE Auto Diff Normal [facility] Comment on above: Performed By: #### C BCDIF, CRP #### [address] [place] [address] #### WSR #### [facility] [address] [place] [phone] Eosinophils #/vol (Bld) 0.08 10*3/uL Normal <0.46 [facility] Comment on above: Performed By: #### C BCDIF, CRP #### [address] [place] [address] #### WSR #### [facility] [address] [place] [phone] Eosinophils/100 WBC (Bld) 0.9 % Normal [facility] Comment on above: Performed By: #### C BCDIF, CRP #### [address] [place] [address] #### WSR #### [place] [address] [place] [phone] Erythrocyte distribution width Ratio (RBC) 13.5 % Norm al 11.5-15.0 [facility] Comment on above: Performed By: #### C BCDIF, CRP #### [address] [place] [address] #### WSR #### [facility] [address] [place] [phone] Hematocrit Volume Fraction (Bld) 42.3 % Normal 36. 0-46.0 [facility] Comment on above: Performed By: #### C BCDIF, CRP #### [address] [place] [address] #### WSR #### [facility] [phone] Hemoglobin mass conc (Bld) 14.0 g/dL Normal 11.5-15.5 [facility] Comment on above: Performed By: #### C BCDIF, CRP #### [address] [place] [address] #### WSR #### [facility] [address] [place] [address] Lymphocytes #/vol (Bld) 2.07 10*3/uL Normal 1.00-4.00 [facility] Comment on above: Performed By: #### C BCDIF, CRP #### [address] [place] [address] #### WSR #### [place] [address] [place] [address] Lymphocytes/100 WBC (Bld) 23.1 % Normal [facility] Comment on above: Performed By: #### C BCDIF, CRP #### [address] [place] [address] #### WSR #### [place] [address] [place] [address] MCH Entitic mass (RBC) 31.1 pG Normal 26.0-34.0 [facility] Comment on above: Performed By: #### C BCDIF, CRP #### [address] [place] [address] #### WSR #### [facility] [address] [place] [address] MCHC mass conc (RBC) 33.1 g/dL Normal 30.5-36.0 [facility] Comment on above: Performed By: #### C BCDIF, CRP #### [address] [place] [address] #### WSR #### [facility] [address] [place] [address] MCV Entitic volume (RBC) 94.0 fL Normal 80.0-100.0 [facility] Comment on above: Performed By: #### C BCDIF, CRP #### [address] [place] [address] #### WSR #### [facility] [address] [address] Monocytes/100 WBC (Bld) 5.5 % Normal [facility] Comment on above: Performed By: #### C BCDIF, CRP #### [address] [place] [address] #### WSR #### [place] [address] [place] [address] Neutrophils/100 WBC (Bld) 69.9 % Normal [facility] Comment on above: Performed By: #### C BCDIF, CRP #### [address] [place] [address] #### WSR #### [place] [address] [address] NRBCs 0.0 /100 WBC Normal 0 [facility] Comment on above: Performed By: #### C BCDIF, CRP #### [address] [place] [address] #### WSR #### [facility] [address] [place] [address] Platelet mean volume Entitic volume (Bld) 9.5 fL Maria Elena l 9.0-12.7 [facility] Comment on above: Performed By: #### C BCDIF, CRP #### [address] [place] [address] #### WSR #### [facility] [address] [place] [address] Platelets #/vol (Bld) 279 10*3/uL Normal 150-400 [facility] Comment on above: Performed By: #### C BCDIF, CRP #### [facility] [address] [facility] [place] [address] #### WSR #### [facility] [address] [place] [address] RBC #/vol (Bld) 4.50 10*6/uL Normal 3.90-5.20 [facility] Comment on above: Performed By: #### C BCDIF, CRP #### [address] [place] [address] #### WSR #### [facility] [address] [place] [address] WBC #/vol (Bld) 8.97 10*3/uL Normal 3.70-11.00 [facility] Comment on above: Performed By: #### C BCDIF, CRP #### [address] [place] [address] #### WSR #### [facility] [address] [place] [address] ED NOTEon 10-31-2018 ED NOTE HNO ID: [id number] Author: Erwin Napier MD Service: Emergency Medicine Author Type: Physician Type: ED Notes Filed: 11/03/2018 2:16 PM Note Text: Doing better, followed up with spine Normal [facility] ED NOTE HNO ID: [id number] Author: Vasquez (Rn) STEVE Winchester Service: ? Author Type: Registered Nurse Type: ED Notes Filed: 10/31/2018 9:15 AM Note Text: Pt to the ED by elliot CARBAJAL c/c 1010 lower back pain she states a chronic issue she is seeing a chiropractor. She states walking around this morning she went to the bathroom sat down on the toilet and the pain became very intense her assisted her off of the toilet. She went into the doctors office and was told she need to go see a specialist. She arrived to the ED with limited movement states lying flat makes the pain better at this time. BP 114/70 Pulse 71 Temp 36.9 ?C (98.4 ?F) (Oral) Resp 16 Wt 59 kg (130 lb) LMP 07/25/2002 SpO2 100% BMI 23.03 kg/m? Plan of care: -Monitor Patient's Vital signs and for changes in condition -Monitor patient for changes in pain -Maintain patient safety and privacy -Provide comfort measures - notify physician of changes in condition [facility] ED NOTE HNO ID: [id number] Author: Lub[place] (Rn) STEVE Dumont Service: ? Author Type: Registered Nurse Type: ED Notes Filed: 10/31/2018 9:08 AM Note Text: Bed: ED-15 Expected date: Expected time: Means of arrival: Comments: [facility] [place] ED PROV NOTEon 10-31-2018 Protein mass conc HNO ID: [id number] Author: Erwin Napier MD Service: Emergency Medicine Author Type: Physician Type: ED Provider Notes Filed: 10/31/2018 2:21 PM Note Text: ED Provider Note Patient Name: Marly Jaffe SERVICE DATE: 10/31/18 History Patient presents with: Low Back Pain: onset a couple days ago 63-year-old female with history of spinal stenosis, arthritis and chronic back discomfort that presents with back discomfort that has been exacerbated over the past several days. symptoms worsened with any movements, right greater than the left. Return from camping, noted significant exacerbation of back pain. Sharp, nonradiating. back discomfort caused weakness in her legs. Able to ambulate in between pain episodes. denies trauma to the affected area. has chills with pain episodes. denies fever, nausea, vomiting or any other symptoms at this time.No prior spinal surgery. not currently in pain management. taking NSAIDs as needed, has TENS unit at home. Evaluated by help desk support specialist earlier today who advised her to come to the ED for treatment as she was in a significant on a pain. Denies any changes in bowel or bladder function. Denies any numbness in lower extremities.smokes half a pack of cigarettes a day. PAST MEDICAL HISTORY Diagnosis Date - Constipation - Dyspareunia - Elevated IOP - Family history of colon cancer - Family history of diabetes mellitus (DM) - GERD (gastroesophageal reflux disease) On Omeprazole, from Dr. Krzysztof Larkin - Glaucoma - Multiple thyroid nodules - Positive ELDON (antinuclear antibody) - Postmenopausal atrophic vaginitis given estring - Spinal stenosis - Symptomatic menopausal or female climacteric states 2006 age 51; 11/2011 nl DXA - Thrush - Tobacco user PAST SURGICAL HISTORY Procedure Laterality Date - COLONOSCOPY 03/2003 with polypectomy - COLONOSCOPY 11/2006 - COLONOSCOPY 11/2013 - DANDC, DIAG AND/OR THERAPEUTIC Dilation AND curettage several - EGD 11/2017 [facility] - EGD 11/2013 - ENLARGE BREAST WITH IMPLANT 2001 Breast augmentation- saline - HEMIARTHROPLASTY CUP 2005 right knee- Dr. Killian - THERMAL ENDOMETRIAL ABLATION 2002 possibly novasure FAMILY HISTORY Problem Relation Age of Onset - Arthritis Mother B/L TKA, Low back - Stroke Mother - Hypertension Mother - Glaucoma Mother - Osteoporosis Mother - Stroke Father post op rotator - cuff tear - Hypertension Father - Diabetes Father - Glaucoma Father - Arthritis Father Hands - Stroke Sister rotator cuff tear - Glaucoma Sister - other (healthy) Son - other (healthy) Daughter - Glaucoma Brother - Colon Cancer Brother bladder, anal - Glaucoma Brother - Cancer Sister blood, lung and bone - Breast Cancer No Family History Social History Tobacco Use - Smoking status: Current Every Day Smoker Packs/day: 0.50 Years: 10.00 Pack years: 5.00 Types: Cigarettes - Smokeless tobacco: Never Used - Tobacco comment: 1 pack per day since June 2014 Substance and Sexual Activity - Alcohol use: Yes Comment: 1 drink per year - Drug use: No Comment: no transfsuions, + tattoos - Sexual activity: Not on file Comment: not asked ALLERGIES Allergen Reactions - Augmentin [Amoxicil* Rash - Compazine [Prochlor* - Plaquenil [Hydroxyc* Rash - Sulfa (Sulfonamide * Review of Systems Constitutional: Negative for chills and fever. HENT: Negative for congestion and rhinorrhea. Eyes: Negative for visual disturbance. Respiratory: Negative for cough, chest tightness and shortness of breath. Cardiovascular: Negative for chest pain and palpitations. Gastrointestinal: Negative for abdominal pain. Genitourinary: Negative for decreased urine volume, difficulty urinating, dysuria, flank pain, frequency, hematuria and urgency. Musculoskeletal: Positive for back pain. Negative for gait problem, neck pain and neck stiffness. Skin: Negative for rash. Neurological: Negative for weakness, numbness and headaches. Physical Exam BP 96/70 Pulse 67 Temp (Src) 98.4 (Oral) Resp 16 Wt 130 lb (59.0kg) SpO2 95% LMP 07/25/2002 O2 Therapy: Room Air Physical Exam Constitutional: She is oriented to person, place, and time. She appears well-developed and well-nourished. No distress. HENT: Head: Normocephalic and atraumatic. Mouth/Throat: Oropharynx is clear and moist. No oropharyngeal exudate. Eyes: Pupils are equal, round, and reactive to light. EOM are normal. Neck: Normal range of motion. Neck supple. Cardiovascular: Normal rate and regular rhythm. Pulmonary/Chest: Effort normal and breath sounds normal. No respiratory distress. Abdominal: Soft. Bowel sounds are normal. She exhibits no distension and no mass. There is no tenderness. There is no rebound and no guarding. Musculoskeletal: Normal range of motion. She exhibits no edema or tenderness. no focal spinal tenderness to palpation Neurological: She is alert and oriented to person, place, and time. She has normal reflexes. No cranial nerve deficit or sensory deficit. She exhibits normal muscle tone. Coordination normal. SILT Skin: Skin is warm. She is not diaphoretic. Diagnostic Testing ED Labs Ordered and Reviewed CBC + AUTO DIFF (AK,AV,EU,FV,HL,FLORENTIN,MM,SP) SED RATE ERYTHROCYTE (AK,AV,EU,FV,HL,FLORENTIN,MM,SP) C-REACTIVE PROTEIN (CRP) (AK,AV,EU,FV,HL,FLORENTIN,MM,SP) URINALYSIS WITH MICROSCOPIC (AK,AV,EU,FV,HL,FLORENTIN,MM,SP) Procedures ED Course / Clinical Impression Clinical Impressions as of Oct 31 1420 Back pain, unspecified back location, unspecified back pain laterality, unspecified chronicity Patient is in no acute distress. Afebrile, remaining vitals are within normal limits. No focal neurologic deficits at this time. Moving bilateral lower extremities with no difficulty. Sensation is intact throughout. treated symptomatically. Patient may benefit from outpatient MRI. negative CRP, low suspicion for infectious etiology as source of pain exacerbation at this time. concerns discussed with the patient, symptoms significantly improved on reevaluation, able to ambulate around the ED. Patient feels comfortable going home with close outpatient follow-up with spine. MDM / Disposition / Plan MDM The patient was DISCHARGED: Counseled patient regarding lab results AND suspected diagnosis AND need for follow-up. Discharged home with verbal and written instructions. They were instructed to return as needed for persistent or worsening symptoms or any new concerns. Condition at time of disposition: improved and stable SIGNATURE: MD Erwin Zarco MD 10/31/18 1421 [facility] Sed Rate Westergrenon 2018 Sed Rate Westergren 8 mm/hr Normal 0-20 [facility] Comment on above: Performed By: #### C BCDIF, CRP #### [facility] [address] [place] [address] #### WSR #### [facility] [address] [id number] Dermatopathologyon 9 Dermatopathology 9 Pathologist: SETH BERNAL MD Date of Procedure: 09/12/2018 Date Received: 09/13/2018 Date Reported 09/14/2018 Submitting Physician: KEILY CRAIN MD Location: [facility] FINAL DIAGNOSIS SKIN, RIGHT FAITH, EXCISION: CHANGES CONSISTENT WITH PREVIOUS PROCEDURE, PRESENT ON THE DEEP AND PERIPHERAL MARGIN WITHOUT RESIDUAL SQUAMOUS CELL CARCINOMA SEEN. Electronically Signed Out by SETH BERNAL M.D. Electronically Signed Out By SETH BERNAL MD/[facility] Microscopic Description: Microscopic examination reveals a specimen that extends into the subcutaneous fat. An area with horizontally oriented collagen and vertically oriented vessels is present. Clinical History: Invasive SCC. Re-excision (B). Specimens Submitted As: A: SKIN, RIGHT FAITH Gross Description: Received in formalin is a craig piece of skin measuring 16 x 5 x 1 mm. Inked and embedded in toto in two blocks. [facility]/09/13/2018 [facility] Comment on above: Performed By: #### D #### Dermatopathology Dermatopathologyon 9 Dermatopathology Pathologist: SETH BERNAL MD Date of Procedure: 07/11/2018 Date Received: 07/12/2018 Date Reported 07/13/2018 Submitting Physician: KEILY CRAIN MD Location: [facility] FINAL DIAGNOSIS A. 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 B. SKIN, RIGHT FAITH, BIOPSY: CONSISTENT WITH INVASIVE SQUAMOUS CELL CARCINOMA, WELL DIFFERENTIATED, PRESENT ON THE DEEP MARGIN, SEE NOTE. Note: Microscopic examination reveals a specimen that extends into the superficial dermis. There are areas of invagination of the epidermis with a slight downward bulbous growth pattern. There is mild to moderate solar elastosis. Electronically Signed Out by SETH BERNAL M.D. Electronically Signed Out By SETH BERNAL MD/[facility] Microscopic Description: A. 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 Clinical History: A: NAD. B: ISK vs. SCC. Specimens Submitted As: A: SKIN, RIGHT PHAM B: SKIN, RIGHT FAITH Gross Description: A: Received in formalin is a craig-brown piece of skin measuring [id number]. The specimen is inked and embedded in toto. B: Received in formalin is a craig piece of skin measuring [id number]. The specimen is inked and embedded in toto. ink/07/12/2018 Normal [facility] Comment on above: Performed By: #### D #### Dermatopathology Vital Signs Date Time Vital Sign Value Performing Clinician Facility 06-02-2023 13:15-0500 Body height 160.02 cm Estelle Bautista Other [employer] Other 06-02-2023 13:15-0500 Body mass index (BMI) [Ratio] 23.27 kg/m2 Estelle Bautista Other [employer] Other 06-02-2023 13:15-0500 Body temperature 96.9 [degF] Estelle Bautista Other [employer] Other 06-02-2023 13:15-0500 Body weight 59.6 kg Estelle Bautista Other [employer] Other 06-02-2023 13:15-0500 Diastolic blood pressure 79 mm[Hg] Estelle Bautista Other [employer] Other 06-02-2023 13:15-0500 SaO2% (BldA) [Mass fraction] 95 % Estelle Bautista Other [employer] Other 06-02-2023 13:15-0500 Systolic blood pressure 120 mm[Hg] Etselle Bautista Other [employer] Other 09-17-2022 11:00-0400 Body height 167.64 cm Enrrique Grant Other [employer] Other 09-17-2022 11:00-0400 Body mass index (BMI) [Ratio] 20.98 kg/m2 Enrrique Grant Other [employer] Other 09-17-2022 11:00-0400 Body weight 58.97 kg Enrrique Grant Other [employer] Other 09-17-2022 11:00-0400 Diastolic blood pressure 97 mm[Hg] Enrrique Grant Other [employer] Other 09-17-2022 11:00-0400 Systolic blood pressure 139 mm[Hg] Enrrique Grant Other [employer] Other 07-29-2022 12:11-0500 Diastolic blood pressure 84 mm[Hg] MD Jameel Manzanares Work Phone: [facility] 07-29-2022 12:11-0500 Heart rate 71 /min MD Jameel Manzanares Work Phone: [facility] 07-29-2022 12:11-0500 Respiratory rate 16 /min MD Jameel Manzanares Work Phone: [facility] 07-29-2022 12:11-0500 SaO2% (BldA) [Mass fraction] 96 % MD Jameel Manzanares Work Phone: [facility] 07-29-2022 12:11-0500 Systolic blood pressure 120 mm[Hg] MD Jameel Manzanares Work Phone: [facility] 07-29-2022 09:45-0500 Body height 160.02 cm MD Jameel Manzanares Work Phone: [facility] 07-29-2022 09:45-0500 Body temperature 98.4 [degF] MD Jameel Manzanares Work Phone: [facility] 07-29-2022 09:45-0500 Body weight 58.96 kg MD Jameel Manzanares Work Phone: [facility] Encounters Encounter Date Encounter Type Care Provider Facility Start: 06-20-2023 End: 06-20-2023 ambulatory [facility] Start: 06-17-2023 End: 06-17-2023 ambulatory Estelle Bautista Other [employer] Other Start: 06-17-2023 Telephone encounter Estelle Bautista [facility] Start: 06-06-2023 End: 06-06-2023 ambulatory Estelle Bautista Other [employer] Other Start: 06-06-2023 Telephone encounter Estelle Bautista [facility] Start: 06-02-2023 End: 06-02-2023 ambulatory Estelle Bautista Other [employer] Other Start: 06-02-2023 Office outpatient visit 25 minutes Estelle Bautista [facility] Start: 05-19-2023 Nursing evaluation of patient and report Estelle Bautista [facility] Start: 05-19-2023 End: 05-19-2023 [facility] [employer] [facility] Start: 04-26-2023 End: 04-26-2023 ambulatory [facility] Start: 02-16-2023 End: 02-16-2023 ambulatory [facility] Start: 01-12-2023 End: 01-12-2023 ambulatory [facility] Start: 12-14-2022 End: 12-14-2022 ambulatory KAYY [facility] Start: 10-21-2022 End: 10-22-2022 ambulatory AAKASH CALIX . Facility:[facility] Start: 09-17-2022 End: 09-17-2022 ambulatory Enrrique Grant Other [facility] [employer] Other Start: 09-17-2022 Office outpatient visit 15 minutes Enrrique Grant [facility] Start: 08-04-2022 End: 08-05-[address] ÁNGEL PUGH Facility:[facility] Start: 07-29-2022 End: 07-29-2022 ambulatory Enrrique Grant Facility:[facility] Start: 07-29-2022 End: 07-29-2022 Admission to same day surgery center MD Jameel Manzanares Work Phone: [facility] Work Phone: Start: 07-29-2022 End: 07-29-2022 ambulatory MD Jameel Manzanares Work Phone: [facility] Work Phone: Start: 07-13-2022 End: 07-14-2022 ambulatory KIERAN PETERSEN Facility:[facility] Start: 06-29-2022 End: 06-29-2022 ambulatory [facility] Start: 06-23-2022 End: 06-24-[address] MERCY MORGAN . Facility:[facility] Start: 06-16-2022 ambulatory Jyoti García MD Work Phone: [facility] [place] Start: 06-11-2022 End: 06-11-[address] MERCY MORGAN . Facility:[facility] Start: 05-07-2022 Refill Jyoti García MD Work Phone: Internal Medicine Comment on above: Refill Request Start: 05-06-2022 ambulatory SWEETIE ROBERTS . Facility:[facility] 1 Start: 04-30-2022 End: 05-01-[address] JAMEEL MANZANARES Facility:[facility] Start: 04-27-2022 End: 04-28-[address] JAMEEL MANZANARES Facility:[facility] Start: 02-10-2022 End: 02-11-2022 ambulatory SWEETIE ROBERTS . Facility:[facility] Start: 01-31-2022 Refill Jojo Wesley OD Work Phone: Ophthalmology Comment on above: Refill Request Start: 11-26-2021 End: 11-27-2021 ambulatory SWEETIE ROBERTS . Facility:[facility] Start: 10-28-2021 Encounter for preprocedural laboratory examination DR ANTONELLA WAYNE . [facility] Start: 10-27-2021 End: 10-27-[address] ANTONELLA WAYNE . Facility:[facility] Start: 10-26-2021 End: 10-27-2021 Encounter for preprocedural laboratory examination DR ANTONELLA WAYNE . Facility:[facility] Start: 10-26-2021 End: 10-27-[address] ANTONELLA WAYNE . 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] Start: 10-31-2018 End: 10-31-2018 Emergency department patient visit [facility] Start: 08-25-2018 Patient encounter procedure Krzysztof devries [facility] Work Phone: Start: 11-02-2017 Patient encounter procedure Rami Abb ass [facility] Work Phone: Start: 10-21-2017 Patient encounter procedure Rami Abb ass [facility] Work Phone: Procedures Date Procedure Procedure Detail Performing Clinician Start: 07-29-2022 Colonoscopy MD Jameel og Work Phone: Start: 08-13-2020 Adult depression scr eening assessment Jojo Lupillo OD Work Phone: Start: 02-14-2020 Mri brain brain stem w/o w/contrast material Jyoti García MD Work Phone: Start: 09-12-2019 Lipid 1996 panel - S rema or Plasma Mri (I-Stat/1.5t) Start: 09-11-2018 Mammography Jojo evans OD Work Phone: Start: 07-04-2017 Colonoscopy Jojo evans OD Work Phone: Screening for malign ant neoplasm of colon Enrrique Juanita Other Plan of Treatment Date Care Activity Detail Author Start: 09-11-2024 Lipid 1996 panel - Serum or Plasma Lipid Screening [facility] Start: 09-11-2024 LIPID SCREEN LIPID SCREEN [facility] Start: 03-04-2023 Influenza vaccination Influenza Vaccine (#1) [facility] Start: 09-11-2022 DIABETES SCREEN DIABETES SCREEN [facility] Start: 09-11-2022 Diabetes Screening Diabetes Screening [facility] Start: 07-29-2022 [facility] Start: 07-04-2022 Advance Directive Discussion Advance Directive Discussion [facility] Start: 07-04-2022 Colonoscopy COLONOSCOPY [facility] Start: 07-04-2022 COLORECTAL CANCER SCREENING COLORECTAL CANCER SCREENING [facility] Start: 07-04-2022 Depression Assessment Depression Assessment [facility] Start: 03-04-2022 Influenza vaccination INFLUENZA (#1) [facility] Start: 08-13-2021 Adult depression screening assessment DEPRESSION SCREENING [facility] Start: 07-04-2021 ADVANCE DIRECTIVE DISCUSSION ADVANCE DIRECTIVE DISCUSSION [facility] Start: 01-01-2022 DEPRESSION ASSESSMENT DEPRESSION ASSESSMENT [facility] Start: 03-30-2021 Urine microalbumin profile [facility] Start: 09-12-[address] [facility] Start: 2016 RSV Vaccine (1 - 1-dose 60+ series) RSV Vaccine (1 - 1-dose 60+ series) [facility] Start: 05-23-2014 Pneumococcal Vaccine: 65+ (2 - PCV) Pneumococcal Vaccine: 65+ (2 - PCV) [facility] Start: 05-23-2014 PNEUMOCOCCAL: 65+ (2 - PCV) PNEUMOCOCCAL: 65+ (2 - PCV) [facility] Start: 11-30-2013 FECAL OCCULT BLOOD FECAL OCCULT BLOOD [facility] Start: 2006 SHINGRIX VACCINE (1 of 2) SHINGRIX VACCINE (1 of 2) [facility] Start: 2001 COLOGUARD (FIT-DNA) COLOGUARD (FIT-DNA) [facility] Start: [address] COLONOGRAPHY [facility] Start: 2001 SIGMOIDOSCOPY SIGMOIDOSCOPY [facility] Start: 1956 COVID-19 VACCINE (#1) COVID-19 VACCINE (#1) [facility] End: 07-16-2023 DOLORES SCREENING DOLORES SCREENING Radiology Routine Encounter for screening mammogram for breast cancer 1 Occurrences starting 06/16/2022 until 07/16/2023 [facility] Work Phone: Comment on above: 1 Occurrences starti ng 06/16/2022 until 07/16/2023 Patient Education Hemorrhoids Co desean Polyps Diverticulosis (DC) [facility] Work Phone: Immunizations Immunization Date Immunization Notes Care Provider Cierra christian 05-19-2023 influenza, high dose seasonal, preservative-free Estelle Bautista Other [employer] Other 06-19-2020 influenza, injectabl e, quadrivalent, contains preservative Jojo Wesley OD Work Phone: [facility] 06-19-2020 influenza virus vaccine, unspecified formulation Mri (I-Stat/1.5t) [facility] 09-11-2019 influenza, injectabl e, quadrivalent, contains preservative Jojo Wesley OD Work Phone: [facility] 09-11-2019 zoster vaccine, recombinant, adjuvanted, (SHINGRIX, PF,) 50 mcg/0.5 mL injection Mri (I-Stat/1.5t) [facility] Work Phone: Comment on above: Inject 0.5 mL intram uscularly now and repeat 2nd dose in 2-6 months 03-28-2017 influenza, injectabl e, quadrivalent, contains preservative Jojo Wesley OD Work Phone: [facility] 08-12-2016 influenza, injectabl e, quadrivalent, preservative free Jojo Wesley OD Work Phone: [facility] Work Phone: 04-14-2015 influenza, injectabl e, quadrivalent, preservative free Jojo Wesley OD Work Phone: [facility] Work Phone: 05-23-2013 influenza virus vacc ine, unspecified formulation Jojo Wesley OD Work Phone: [facility] 05-23-2013 pneumococcal polysaccharide vaccine, 23 valent Jojo Wesley OD Work Phone: [facility] 04-13-2012 influenza virus vacc ine, unspecified formulation Jojo Wesley OD Work Phone: [facility] 03-30-2011 tetanus toxoid, redu rukhsana diphtheria toxoid, and acellular pertussis vaccine, adsorbed Jojokendell Wesley OD Work Phone: [facility] Payers Date Payer Category Payer Self-pay 2019 Unknown [employer] PPO OOS [id number] 2019-Present [phone] [address] [place] [address] PPO [id number] 2019 Unknown [employer] PPO OOS [id number] 2019-Present [phone] [address] [place] [address] PPO [id number] 1959 Private Health Insurance [facility] [id number] 1956 Unknown [id number] 93 1956 Unknown [id number] 93 1956 Unknown [id number] [id number] 93 1956 Unknown [id number] 93 1956 Unknown [id number] [id number] 93 1956 Unknown [id number] [id number] 93 1956 Unknown [id number] [id number] 93 1956 Unknown [id number] [id number] 93 1956 Unknown [id number] [id number] 93 1956 Unknown [id number] [id number] 93 1956 Unknown [id number] [id number] 93 1956 Unknown [id number] [id number] 93 1956 Unknown [id number] 93 Unknown [id number] 31 Social History Date Type Detail Facility Start: 07-04-1985 Tobacco smoking stat us [facility] Smokes tobacco daily [facility] Start: 07-04-1985 History of tobacco use Cigarette Smo ker [facility] Start: 01-29-2020 End: 10-20-2020 Alcohol intake Current drinker of alcohol (finding) [facility] Start: 01-18-2020 End: 02-28-2020 History SDOH Alcohol Frequency [address] [facility] Start: 01-18-2020 End: 02-28-2020 History SDOH Alcohol Std Drinks [address] [facility] Start: 07-25-2014 History SDOH Alcohol Comment 1 drink per year [facility] Start: 09-11-2019 End: 01-18-2020 History SDOH Social Connections Phone [address] [facility] Start: 01-18-2020 History SDOH Physica l Activity DPW [address] [facility] Start: 09-11-2019 Education [address] [facility] Start: 09-11-2019 Tobacco Comment current 0.5-1ppd [facility] Start: 1955 Sex Assigned At Female C [facility] Start: 09-11-2019 End: 01-18-2020 Cigarettes smoked current (pack per day) - Reported 0.[address] [facility] Start: 09-11-2019 Tobacco use and exposure Smoke less tobacco non-user [facility] Work Phone: Start: 07-29-2022 [facility] Start: 09-11-2019 End: 01-18-2020 Sex Assigned At [facility] Frequency of Communication with Friends and Family Not on file [facility] Do you belong to any clubs or organizations such as zoroastrianism groups, unions, fraternal or athletic groups, or school groups? Yes [facility] How often to you hav e a drink containing alcohol? Monthly or less [facility] How many standard dr inks containing alcohol do you have on a typical day? 1 or [address] [facility] How often do you hav e 6 or more drinks on 1 occasion? Never [facility] Do you feel stress - tense, restless, nervous, or anxious, or unable to sleep at night because your mind is troubled all the time - these days [OSQ] Only a little [facility] (I/We) worried alan er (my/our) food would run out before (I/we) got money to buy more. Never true [facility] In the past 12 month s, was there a time when you were not able to pay the mortgage or rent on time? No [facility] Start: 11-17-2018 Gender identity Identifies as female gender (finding) [facility] Start: 11-17-2018 Sexual orientation Choose not to disclose [facility] Start: 01-15-2020 End: 02-14-2020 Exposure to SARS-CoV-2 (event) Not sure [facility] NEGATED: Highlighted row - Current every day smoker -[facility] Work Phone: Goals Date Patient Goal Desired Activity /State Functional Status Date Assessment Result Facility NEGATED: Highlighted row Functional performance Functional status health issues are not documented Disease -[facility] Work Phone: Mental Status Date Assessment Result Facility NEGATED: Highlighted row Cognitive function [Interpretation] Cognitive status health issues are not documented Disease -[facility] Work Phone: Clinical Notes 06-05-2012 to 06-20-2023 Note Date & Type Note Facility 06-20-2023 Note Patient here for 1 m o follow up loop implant. Says she stopped a few medications for her back and her heart has settled down now . Says her palpitations are much less now that she's stopped those. She denies chest pain, SOB, and lightheadedness. She is concerned her BP gets too low at times. Review of Systems Cardiovascular: Positive for irregular heartbeat (much less) and palpitations. Respiratory: Positive for cough. All other systems reviewed and are negative. [facility] 06-20-2023 Note [place] Cardiology Consul t Note Reason for visit: Palpitations, AT 06/20/23: She has been doing well She feels her palpitations have improved since she stopped all of her muscle relaxers and notes that muscle relaxers were probably exacerbating she thinks her blood pressure has been low when it is in the low 100s systolic she feels fatigue so we discussed reducing amlodipine 2.5 mg daily Loop data review 06/20/2023 shows some sinus tach events that she marked but no arrhythmias noted 04/26/2023 HPI: patient continues to endorse episodes of palpitations some of them lasting more than a few minutes. she reports having experienced one this morning which was markedly symptomatic for her and made her extremely short of breath. Event monitor from 02/15/2023 to 03/18/2023 revealed episodes of nonsustained atrial tachycardia of a few seconds. no A-fib or VT was seen. she is currently on metoprolol succinate 25 mg daily. She denies chest pain but she continues to abuse tobacco. EKG 01/12/23 Normal sinus rhythm, left anterior fascicular block, unable to rule out septal infarct or lateral infarct age undetermined 12/14/2022 sinus rhythm with incomplete right bundle branch block, left anterior fascicular block, septal infarct with age undetermined 04/10/2012 shows sinus rhythm with normal intervals ---- 06/29/22 HPI: Marly Jaffe is a 68 y.o. year old with past medical history of GERD and back pain had been ecperiencing palpitations. She had a 48hr Holter placed which revealed non sustained AT. She is a smoker and has anxiety for which she takes medications. She has felt better with meds and the time she wore Holter, she felt no plapitations. She usually feels them when she wakes up and lasts for a few minutes. EKG on 04/10/2012 shows sinus rhythm with normal intervals Holter monitor that was placed on 05/17/2022 shows the presence of nonsustained atrial tachycardia of 5-6 beats noted on 04/30/2022. There was another episode of 15 beat duration of SVT noted on 04/22/2022 at 9:32 PM and another 5 beats noted on 04/15/2022, PMH: Past Medical History: Diagnosis Date Abnormal ECG Anxiety GERD (gastroesophageal reflux disease) SVT (supraventricular tachycardia) PSH: Past Surgical History: Procedure Laterality Date BREAST SURGERY implants REPLACEMENT TOTAL KNEE ONCOLOGIC UTERINE FIBROID EMBOLIZATION SH: Social Determinants of Health Tobacco Use: High Risk (05/19/2023) Patient History Smoking Tobacco Use: Every Day Smokeless Tobacco Use: Never Passive Exposure: Current Alcohol Use: Not on file Financial Resource Strain: Not on file Food Insecurity: Not on file Transportation Needs: Not on file Physical Activity: Not on file Stress: Not on file Social Connections: Not on file Intimate Partner Violence: Not on file Depression: Not on file Housing Stability: Not on file Allergies: Allergies Allergen Reactions Prochlorperazine Other Other reaction(s): Other (See Comments) seizures seizures Tramadol Other and Rash Other reaction(s): GI Intolerance, GI Upset n/v Amoxicillin-Pot Clavulanate Rash Hydroxychloroquine Rash Sulfa (Sulfonamide Antibiotics) Rash Weight: No results found for: PTWEIGHT Meds: Current Outpatient Medications on File Prior to Visit Medication Sig Dispense Refill albuterol 90 mcg/actuation inhaler Inhale 2 puffs every 4 (four) hours if needed. alendronate (Fosamax) 35 mg tablet Take 35 mg by mouth in the morning. ALPRAZolam (Xanax) 0.5 mg tablet Take 0.5 mg by mouth if needed in the morning, at noon, and at bedtime. amLODIPine (Norvasc) 5 mg tablet Take 1 tablet (5 mg) by mouth in the morning. 30 tablet 11 aspirin 81 mg EC tablet Take 81 mg by mouth in the morning. calcium carbonate-vitamin D3 600 mg-10 mcg (400 unit) tablet Take by mouth. cholecalciferol, vitamin D3, 50 mcg (2,000 unit) capsule Take 2,000 Units by mouth in the morning. coenzyme Q-10 100 mg capsule Take 100 mg by mouth in the morning. diclofenac (Voltaren) 1 % topical gel Apply 2 g topically 4 times a day. fluticasone (Flonase) 50 mcg/actuation nasal spray Administer 2 sprays into each nostril in the morning. ibuprofen/diphenhydramine cit (ADVIL PM ORAL) Take by mouth. meloxicam (Mobic) 15 mg tablet TAKE 1 TABLET EACH MORNING methocarbamol (Robaxin) 500 mg tablet Take 500 mg by mouth. metoprolol succinate XL (Toprol-XL) 25 mg 24 hr tablet Take 1.5 tablets (37.5 mg) by mouth in the morning. Do not crush or chew. (Patient taking differently: Take 25 mg by mouth in the morning. Do not crush or chew.) 135 tablet 3 montelukast (Singulair) 10 mg tablet Take 10 mg by mouth in the morning. multivitamin tablet Take by mouth. omeprazole (PriLOSEC) [address] capsule Take by mouth in the morning. No current facility-administered medications on file prior to visit. ROS: (more content not included)... [facility] 06-02-2023 Evaluation note Encounter Date Diagnosis Assessment Notes May, Mass of right side of neck (ICD-10 - R22.1) Pt agrees to US and further assessment of this area that intermittently enlarges. May, Chronic cough (ICD-10 - R05.3) Agrees to inhaler and steroids to relieve wheezing May, Chronic sinusitis of both maxillary sinuses (ICD-10 - J32.0) Imaging and consider ENT referral if needed. Strategic Funding Source Other 11-22-2023 NotePatient Outreach ([facility]) MARLY JAFFE ([id number]) 1955 F Date Time Provider Department 05/25/23 JYOTI GARCÍA [facility] During your visit today, we recorded the following information about you: Allergies As of Date: 05/25/2023 Noted Allergy Reaction PROCHLORPERAZINE 11/06/2014 14 - Other: See Comments Comments: seizures TRAMADOL 11/02/2018 5 - Intolerance 8 - GI Upset AUGMENTIN (AMOXICILLIN-POT CLAVUL*10/17/2018 2 - Rash COMPAZINE (PROCHLORPERAZINE EDISY*09/07/2005 PLAQUENIL (HYDROXYCHLOROQUINE SUL*12/23/2005 2 - Rash SULFA (SULFONAMIDE ANTIBIOTICS) 09/07/2005 Date Reviewed: 10/20/2020 Reviewed by: Jojo Wesley (Od) - Fully Assessed Visit Diagnosis:Encounter for screening mammogram for breast cancer [Z12.31] Order(s):[facility] SCREENING [[id number]] Order #: [id number] FUTURE Prescriptions as of 05/30/2023 - travoprost (TRAVATAN Z) 0.004 % ophthalmic drops USE 1 DROP IN BOTH EYES DAILY AT BEDTIME. - omeprazole (PRILOSEC) 20 mg capsule TAKE 1 CAPSULE BY MOUTH EVERY DAY - COSOPT, PF, 2-0.5 % Use 1 Drop in both eyes twice daily. - melatonin 10 mg tab Take 1 tablet by mouth at bedtime as needed. - MV with Ezy-Wepbsglv-Rsemnw (CENTRUM SILVER) 0.4-300-250 mg-mcg-mcg tab Take 1 tablet by mouth once daily. - coenzyme Q10 (CO Q-10) 100 mg cap capsule Take 1 capsule by mouth once daily. - Brimonidine-Timolol (COMBIGAN) 0.2-0.5 % Use 1 Drop in both eyes twice daily. - albuterol HFA (PROVENTIL HFA, VENTOLIN HFA) 90 mcg/actuation inhaler Inhale 2 Puffs as instructed every 4 hours as needed for Wheezing/Shortness of Breath. - diclofenac sodium (VOLTAREN) 1 % topical gel Apply 2 g to affected area four times daily. - ibuprofen/diphenhydramine cit (ADVIL PM ORAL) Take by mouth. - aspirin, enteric coated (ADULT LOW DOSE ASPIRIN) 81 mg EC tablet Take 1 tablet by mouth once daily. - Cholecalciferol, Vitamin D3, 2,000 unit cap Take 2,000 Units by mouth once daily. - linaclotide (LINZESS) 290 mcg cap Take 1 capsule by mouth as needed. Problem List As Of Date 05/25/2023 Noted Resolved Degeneration of lumbar or lumbosacral intervert*01/24/2009 10/22/2013 LUMBOSACRAL SPONDYLOSIS [M47.817] 01/24/2009 GERD (Gastroesophageal Reflux Disease) [K21.9] 03/03/2009 Allergic Rhinitis [J30.9] 03/03/2009 Colon cancer screening [Z12.11] 03/03/2009 08/02/2011 Colon Polyps [K63.5] 03/04/2009 Spinal Stenosis [M48.00] 03/04/2009 Family history of diabetes mellitus (DM) [Z83.3] Postmenopausal atrophic vaginitis [N95.2] Dyspareunia [TYL8986] 11/04/2017 Tobacco user [Z72.0] 05/03/2013 Symptomatic menopausal or female climacteric st* Screening breast examination [Z12.39] 03/30/2011 08/02/2011 Constipation [K59.00] Abnormal mammogram [R92.8] 08/02/2011 11/04/2017 Elevated BP [AAQ7565] 08/02/2011 Chest pain [R07.9] 09/17/2011 05/03/2013 Tobacco dependency [F17.200] 09/17/2011 Family history of early CAD [Z82.49] 09/17/2011 Syncope [R55] 09/17/2011 Postmenopausal HRT (hormone replacement therapy*06/05/2012 Screening breast examination [Z12.39] 06/05/2012 05/03/2013 Elevated IOP [H40.059] 05/03/2013 Multiple thyroid nodules [E04.2] 05/03/2013 Family history of colon cancer [Z80.0] 03/28/2017 Smoker [F17.200] 05/03/2017 Bilateral wrist pain [M25.531, M25.532] 07/14/2017 Encounter Status:Closed by FOUZIA COLLADO on 05/30/23[facility] 05-19-[facility]23 NoteLOOP IMPLANT PROCEDURE NOTE DATE OF PROCEDURE: 05/19/23 PERFORMING PHYSICIAN: Dr. Kieran Petersen OFFICE ASSISTANT RECEPTIONIST: LIZ INDICATIONS FOR PROCEDURE: 1. SVT/AF surveillance CONSENT: Patient LOCATION: EP lab PROCEDURAL SEDATION: None FLUOROSCOPY TIME: 0min PREPARATION: Preoperative antibiotics was administered. EBL: 5cc SPECIMEN REMOVED: None PROCEDURES PERFORMED: 1. LOOP implant PROCEDURE NOTE: Patient was brought to the EP lab in the post absorptive state. A procedural pause was performed verifying the patient, the procedure. Sterile prep and drape were performed over the left precordium and anesthesia with 1% lidocaine was followed by a small incision was made in the 3rd intercostal space near the sternum on the left using the Peter Blueberry tool. The loop recorder was then injected subcutaneously and noted to have good sensing parameters. Technical details of the device as noted below. The skin was then closed with 3-0 absorbable monofilament suture and glue applied to hold the edges together. Tegaderm was applied to cover the wound. The patient appeared to tolerate the procedure well and was returned to the room in stable condition. No complications were immediately observed. Sensin.11mV. IMPRESSION: Successful placement of LOOP implant with excellent sensing parameters. COMPLICATIONS: None RECOMMENDATIONS: 1. Occlusive dressing to be changed after 7 days. 2. Do not wet the incision. Kieran Petersen MD Cardiac Electrophysiology.[facility]11-16-2023 Evaluation note* Encounter Date Diagnosis Assessment Notes Treatment Notes Treatment Clinical Notes May, Allergic rhinitis, unspecified seasonality, unspecified trigger (ICD-10 - J30.9) Strategic Funding Source Other 10-24-2023 NoteUT Cardiology Consult Note Reason for visit: Palpitations, AT 04/26/2023 HPI: patient continues to endorse episodes of palpitations some of them lasting more than a few minutes. she reports having experienced one this morning which was markedly symptomatic for her and made her extremely short of breath. Event monitor from 02/15/2023 to 03/18/2023 revealed episodes of nonsustained atrial tachycardia of a few seconds. no A-fib or VT was seen. she is currently on metoprolol succinate 25 mg daily. She denies chest pain but she continues to abuse tobacco. EKG 01/12/23 Normal sinus rhythm, left anterior fascicular block, unable to rule out septal infarct or lateral infarct age undetermined 12/14/2022 sinus rhythm with incomplete right bundle branch block, left anterior fascicular block, septal infarct with age undetermined 04/10/2012 shows sinus rhythm with normal intervals ---- 06/29/22 HPI: Marly Jaffe is a 68 y.o. year old with past medical history of GERD and back pain had been ecperiencing palpitations. She had a 48hr Holter placed which revealed non sustained AT. She is a smoker and has anxiety for which she takes medications. She has felt better with meds and the time she wore Holter, she felt no plapitations. She usually feels them when she wakes up and lasts for a few minutes. EKG on 04/10/2012 shows sinus rhythm with normal intervals Holter monitor that was placed on 05/17/2022 shows the presence of nonsustained atrial tachycardia of 5-6 beats noted on 04/30/2022. There was another episode of 15 beat duration of SVT noted on 04/22/2022 at 9:32 PM and another 5 beats noted on 04/15/2022, PMH: Past Medical History: Diagnosis Date Abnormal ECG Anxiety GERD (gastroesophageal reflux disease) SVT (supraventricular tachycardia) PSH: Past Surgical History: Procedure Laterality Date BREAST SURGERY implants REPLACEMENT TOTAL KNEE ONCOLOGIC UTERINE FIBROID EMBOLIZATION SH: Social Determinants of Health Tobacco Use: High Risk (04/26/2023) Patient History Smoking Tobacco Use: Every Day Smokeless Tobacco Use: Never Passive Exposure: Current Alcohol Use: Not on file Financial Resource Strain: Not on file Food Insecurity: Not on file Transportation Needs: Not on file Physical Activity: Not on file Stress: Not on file Social Connections: Not on file Intimate Partner Violence: Not on file Depression: Not on file Housing Stability: Not on file Allergies: Allergies Allergen Reactions Prochlorperazine Other Other reaction(s): Other (See Comments) seizures seizures Tramadol Other and Rash Other reaction(s): GI Intolerance, GI Upset n/v Amoxicillin-Pot Clavulanate Rash Hydroxychloroquine Rash Sulfa (Sulfonamide Antibiotics) Rash Weight: No results found for: PTWEIGHT Meds: Current Outpatient Medications on File Prior to Visit Medication Sig Dispense Refill albuterol 90 mcg/actuation inhaler Inhale 2 puffs every 4 (four) hours if needed. alendronate (Fosamax) 35 mg tablet Take 35 mg by mouth in the morning. ALPRAZolam (Xanax) 0.5 mg tablet Take 0.5 mg by mouth if needed in the morning, at noon, and at bedtime. amLODIPine (Norvasc) 5 mg tablet Take 1 tablet (5 mg) by mouth in the morning. 30 tablet 11 aspirin 81 mg EC tablet Take 81 mg by mouth in the morning. calcium carbonate-vitamin D3 600 mg-10 mcg (400 unit) tablet Take by mouth. cholecalciferol, vitamin D3, 50 mcg (2,000 unit) capsule Take 2,000 Units by mouth in the morning. coenzyme Q-10 100 mg capsule Take 100 mg by mouth in the morning. diclofenac (Voltaren) 1 % topical gel Apply 2 g topically 4 times a day. fluticasone (Flonase) 50 mcg/actuation nasal spray Administer 2 sprays into each nostril in the morning. meloxicam (Mobic) 15 mg tablet TAKE 1 TABLET EACH MORNING methocarbamol (Robaxin) 500 mg tablet Take 500 mg by mouth. metoprolol succinate XL (Toprol-XL) 25 mg 24 hr tablet Take 1.5 tablets (37.5 mg) by mouth in the morning. Do not crush or chew. (Patient taking differently: Take 25 mg by mouth in the morning. Do not crush or chew.) 135 tablet 3 montelukast (Singulair) 10 mg tablet Take 10 mg by mouth in the morning. multivitamin tablet Take by mouth. omeprazole (PriLOSEC) [address] capsule Take by mouth in the morning. ibuprofen/diphenhydramine cit (ADVIL PM ORAL) Take by mouth. No current facility-administered medications on file prior to visit. ROS: Review of Systems Cardiovascular: Positive for chest pain, dyspnea on exertion, irregular heartbeat and palpitations. Respiratory: Positive for shortness of breath. All other systems reviewed and are negative. Physical Exam: Constitutional General Appearance: well-nourished, well-developed, appears stated age Level of Distress: comfortable Psychiatric Mental Status: alert, normal affect Orientation: oriented to (more content not included)...[facility]08-16-2023 NoteUT Cardiology Consult Note Reason for visit: Palpitations, AT HPI: patient here for 1 month follow-up regarding her palpitations. About 2 month ago she was placed on metoprolol succinate 25 mg daily and then we increased to 37.5mg She states she is tolerating the metoprolol and feels like it is helped her palpitations but she still having them, they are infrequent now She denies chest pain, shortness of breath, lightness, dizziness EKG 01/12/23 Normal sinus rhythm, left anterior fascicular block, unable to rule out septal infarct or lateral infarct age undetermined 12/14/2022 sinus rhythm with incomplete right bundle branch block, left anterior fascicular block, septal infarct with age undetermined 04/10/2012 shows sinus rhythm with normal intervals ---- 06/29/[address] petersen HPI: Marly Jaffe is a 67 y.o. year old with past medical history of GERD and back pain had been ecperiencing palpitations. She had a 48hr Holter placed which revealed non sustained AT. She is a smoker and has anxiety for which she takes medications. She has felt better with meds and the time she wore Holter, she felt no plapitations. She usually feels them when she wakes up and lasts for a few minutes. EKG on 04/10/2012 shows sinus rhythm with normal intervals Holter monitor that was placed on 05/17/2022 shows the presence of nonsustained atrial tachycardia of 5-6 beats noted on 04/30/2022. There was another episode of 15 beat duration of SVT noted on 04/22/2022 at 9:32 PM and another 5 beats noted on 04/15/2022, PMH: Past Medical History: Diagnosis Date Anxiety GERD (gastroesophageal reflux disease) SVT (supraventricular tachycardia) ([facility]) PSH: Past Surgical History: Procedure Laterality Date BREAST SURGERY implants REPLACEMENT TOTAL KNEE ONCOLOGIC UTERINE FIBROID EMBOLIZATION SH: Social Determinants of Health Tobacco Use: High Risk (02/16/2023) Patient History Smoking Tobacco Use: Every Day Smokeless Tobacco Use: Never Passive Exposure: Current Alcohol Use: Not on file Financial Resource Strain: Not on file Food Insecurity: Not on file Transportation Needs: Not on file Physical Activity: Not on file Stress: Not on file Social Connections: Not on file Intimate Partner Violence: Not on file Depression: Not on file Housing Stability: Not on file Allergies: Allergies Allergen Reactions Prochlorperazine Other Other reaction(s): Other (See Comments) seizures seizures Tramadol Other and Rash Other reaction(s): GI Intolerance, GI Upset n/v Amoxicillin-Pot Clavulanate Rash Hydroxychloroquine Rash Sulfa (Sulfonamide Antibiotics) Rash Weight: No results found for: PTWEIGHT Meds: Current Outpatient Medications on File Prior to Visit Medication Sig Dispense Refill albuterol 90 mcg/actuation inhaler Inhale 2 puffs every 4 (four) hours if needed. alendronate (Fosamax) 35 mg tablet Take 35 mg by mouth in the morning. ALPRAZolam (Xanax) 0.5 mg tablet Take 0.5 mg by mouth if needed in the morning, at noon, and at bedtime. aspirin 81 mg EC tablet Take 81 mg by mouth in the morning. calcium carbonate-vitamin D3 600 mg-10 mcg (400 unit) tablet Take by mouth. cholecalciferol, vitamin D3, 50 mcg (2,000 unit) capsule Take 2,000 Units by mouth in the morning. coenzyme Q-10 100 mg capsule Take 100 mg by mouth in the morning. diclofenac (Voltaren) 1 % topical gel Apply 2 g topically 4 times a day. fluticasone (Flonase) 50 mcg/actuation nasal spray Administer 2 sprays into each nostril in the morning. ibuprofen/diphenhydramine cit (ADVIL PM ORAL) Take by mouth. meloxicam (Mobic) 15 mg tablet TAKE 1 TABLET EACH MORNING methocarbamol (Robaxin) 500 mg tablet Take 500 mg by mouth. metoprolol succinate XL (Toprol-XL) 25 mg 24 hr tablet Take 1.5 tablets (37.5 mg) by mouth in the morning. Do not crush or chew. 135 tablet 3 montelukast (Singulair) 10 mg tablet Take 10 mg by mouth in the morning. multivitamin tablet Take by mouth. omeprazole (PriLOSEC) [address] capsule Take by mouth in the morning. No current facility-administered medications on file prior to visit. ROS: Cardiovascular: Positive for irregular heartbeat and palpitations. Negative for chest pain, claudication, cyanosis, dyspnea on exertion, leg swelling, near-syncope, orthopnea, paroxysmal nocturnal dyspnea and syncope. Physical Exam: Constitutional General Appearance: well-nourished, well-developed, appears stated age Level of Distress: comfortable Psychiatric Mental Status: alert, normal affect Orientation: oriented to time, place, and person Insight: good judgement Eyes Lids and Conjunctivae: non-injected, no xanthelasma ENMT Ears: no lesions on external ear Nose: no lesions on external nose Oropharynx: no cyanosis, no pallor Neck Neck: supple, trachea midline Carotid Arteries: bilateral n (more content not included)...[facility]07-12-2023 NoteUT Cardiology Consult Note Reason for visit: Palpitations, AT HPI: patient here for 1 month follow-up regarding her palpitations. About a month ago she was placed on metoprolol succinate 25 mg daily She states she is tolerating the metoprolol and feels like it is helped her palpitations but she still having them She denies chest pain, shortness of breath, lightness, dizziness EKG 01/12/23 Normal sinus rhythm, left anterior fascicular block, unable to rule out septal infarct or lateral infarct age undetermined 12/14/2022 sinus rhythm with incomplete right bundle branch block, left anterior fascicular block, septal infarct with age undetermined 04/10/2012 shows sinus rhythm with normal intervals ---- 06/29/[address] petersen HPI: Marly Jaffe is a 67 y.o. year old with past medical history of GERD and back pain had been ecperiencing palpitations. She had a 48hr Holter placed which revealed non sustained AT. She is a smoker and has anxiety for which she takes medications. She has felt better with meds and the time she wore Holter, she felt no plapitations. She usually feels them when she wakes up and lasts for a few minutes. EKG on 04/10/2012 shows sinus rhythm with normal intervals Holter monitor that was placed on 05/17/2022 shows the presence of nonsustained atrial tachycardia of 5-6 beats noted on 04/30/2022. There was another episode of 15 beat duration of SVT noted on 04/22/2022 at 9:32 PM and another 5 beats noted on 04/15/2022, PMH: Past Medical History: Diagnosis Date Anxiety GERD (gastroesophageal reflux disease) SVT (supraventricular tachycardia) (CMS/HCC) PSH: Past Surgical History: Procedure Laterality Date BREAST SURGERY implants REPLACEMENT TOTAL KNEE ONCOLOGIC UTERINE FIBROID EMBOLIZATION SH: Social Determinants of Health Tobacco Use: High Risk (01/12/2023) Patient History Smoking Tobacco Use: Every Day Smokeless Tobacco Use: Never Passive Exposure: Current Alcohol Use: Not on file Financial Resource Strain: Not on file Food Insecurity: Not on file Transportation Needs: Not on file Physical Activity: Not on file Stress: Not on file Social Connections: Not on file Intimate Partner Violence: Not on file Depression: Not on file Housing Stability: Not on file Allergies: Allergies Allergen Reactions Prochlorperazine Other Other reaction(s): Other (See Comments) seizures seizures Tramadol Other and Rash Other reaction(s): GI Intolerance, GI Upset n/v Amoxicillin-Pot Clavulanate Rash Hydroxychloroquine Rash Sulfa (Sulfonamide Antibiotics) Rash Weight: No results found for: PTWEIGHT Meds: Current Outpatient Medications on File Prior to Visit Medication Sig Dispense Refill albuterol 90 mcg/actuation inhaler Inhale 2 puffs every 4 (four) hours if needed. alendronate (Fosamax) 35 mg tablet Take 35 mg by mouth in the morning. ALPRAZolam (Xanax) 0.5 mg tablet Take 0.5 mg by mouth if needed in the morning, at noon, and at bedtime. aspirin 81 mg EC tablet Take 81 mg by mouth in the morning. calcium carbonate-vitamin D3 600 mg-10 mcg (400 unit) tablet Take by mouth. cholecalciferol, vitamin D3, 50 mcg (2,000 unit) capsule Take 2,000 Units by mouth in the morning. coenzyme Q-10 100 mg capsule Take 100 mg by mouth in the morning. diclofenac (Voltaren) 1 % topical gel Apply 2 g topically 4 times a day. fluticasone (Flonase) 50 mcg/actuation nasal spray Administer 2 sprays into each nostril in the morning. ibuprofen/diphenhydramine cit (ADVIL PM ORAL) Take by mouth. meloxicam (Mobic) 15 mg tablet TAKE 1 TABLET EACH MORNING methocarbamol (Robaxin) 500 mg tablet Take 500 mg by mouth. metoprolol succinate XL (Toprol-XL) 25 mg 24 hr tablet Take 1 tablet (25 mg) by mouth in the morning. Do not crush or chew. 90 tablet 3 montelukast (Singulair) 10 mg tablet Take 10 mg by mouth in the morning. multivitamin tablet Take by mouth. omeprazole (PriLOSEC) [address] capsule Take by mouth in the morning. [DISCONTINUED] baclofen (Lioresal) 20 mg tablet Take 20 mg by mouth if needed in the morning, at noon, and at bedtime. [DISCONTINUED] cyclobenzaprine (Flexeril) 10 mg tablet [DISCONTINUED] magnesium oxide (Mag-Ox) 400 mg (241.3 mg magnesium) tablet Take 400 mg by mouth. [DISCONTINUED] melatonin 10 mg tablet Take 10 mg by mouth if needed each day. [DISCONTINUED] metoprolol succinate XL (Toprol-XL) 25 mg 24 hr tablet Take 1 tablet (25 mg) by mouth in the morning. Do not crush or chew. 30 tablet 11 No current facility-administered medications on file prior to visit. ROS: Cardiovascular: Positive for irregular heartbeat and palpitations. Negative for chest pain, claudication, cyanosis, dyspnea on exertion, leg swelling, near-syncope, orthopnea, paroxysmal nocturnal dyspnea and syncope. Physical Exam: Constitutional General Appearance: well-no (more content not included)...[facility]07-12-2023 NotePatient is here today for a 1 month follow up Review of Systems Cardiovascular: Positive for chest pain, irregular heartbeat and palpitations. All other systems reviewed and are negative.[facility] 12-14-2022 NoteCardiovascular Medicine [facility] SUBJECTIVE Chief Complaint Patient presents with Palpitations Marly Jaffe is a 67 y.o. female here for follow-up. HPI Patient here today c/o palpitations. Says when she was seen back in Jun 2022, she was having intermittent palpitations, usually in the mornings. Xanax always helped with this. Lately she's been waking up around 6am with palpitations and states they are worse than ever . C/o fatigue and slight chest tightness . Has been taking a full tablet of Xanax recently, instead of half. She smokes 1 PPD but denies SOB. Palpitations have increased in frequency and intensity. She c/o waking up around 6am with palpitations, feels like significant pounding or like her heart rate is going very fast. Has increased in intensity the last few weeks. She has accompanied SOB, and chest tightness. She denies any c/o CP/tightness with exertion along with no SOB on exertion. She also denies orthopnea, PND, LE edema. Last HPI per Dr. Petersen: Marly Jaffe is a 67 y.o. year old with past medical history of GERD and back pain had been ecperiencing palpitations. She had a 48hr Holter placed which revealed non sustained AT. She is a smoker and has anxiety for which she takes medications. She has felt better with meds and the time she wore Holter, she felt no plapitations. She usually feels them when she wakes up and lasts for a few minutes. EKG on 04/10/2012 shows sinus rhythm with normal intervals Holter monitor that was placed on 05/17/2022 shows the presence of nonsustained atrial tachycardia of 5-6 beats noted on 04/30/2022. There was another episode of 15 beat duration of SVT noted on 04/22/2022 at 9:32 PM and another 5 beats noted on 04/15/2022 There is no problem list on file for this patient. Past Medical History: Diagnosis Date Anxiety GERD (gastroesophageal reflux disease) SVT (supraventricular tachycardia) ([facility]) Family History Problem Relation Name Age of Onset Stroke Mother Hypertension Mother Cancer Mother Stroke Father Other (pacemaker/ICD) Father Social History Tobacco Use Smoking status: Every Day Packs/day: 1.00 Types: Cigarettes Start date: 1988 Passive exposure: Current Smokeless tobacco: Never Substance Use Topics Alcohol use: Never Drug use: Never Allergies Allergen Reactions Prochlorperazine Other Other reaction(s): Other (See Comments) seizures seizures Tramadol Other and Rash Other reaction(s): GI Intolerance, GI Upset n/v Amoxicillin-Pot Clavulanate Rash Hydroxychloroquine Rash Sulfa (Sulfonamide Antibiotics) Rash ROS Cardiovascular: Positive for chest pain, irregular heartbeat and palpitations. All other systems reviewed and are negative. OBJECTIVE Visit Vitals BP 142/90 (BP Location: Left arm, Patient Position: Sitting) Pulse 80 Ht 1.6 m (5' 3 ) Wt 61.2 kg (135 lb) SpO2 97% BMI 23.91 kg/m??? Smoking Status Every Day BSA 1.65 m??? Medications: Current Outpatient Medications: albuterol 90 mcg/actuation inhaler, Inhale 2 puffs every 4 (four) hours if needed., Disp: , Rfl: ALPRAZolam (Xanax) 0.5 mg tablet, Take 0.5 mg by mouth if needed in the morning, at noon, and at bedtime., Disp: , Rfl: aspirin 81 mg EC tablet, Take 81 mg by mouth in the morning., Disp: , Rfl: baclofen (Lioresal) 20 mg tablet, Take 20 mg by mouth if needed in the morning, at noon, and at bedtime., Disp: , Rfl: calcium carbonate-vitamin D3 600 mg-10 mcg (400 unit) tablet, Take by mouth., Disp: , Rfl: cholecalciferol, vitamin D3, 50 mcg (2,000 unit) capsule, Take 2,000 Units by mouth in the morning., Disp: , Rfl: coenzyme Q-10 100 mg capsule, Take 100 mg by mouth in the morning., Disp: , Rfl: cyclobenzaprine (Flexeril) 10 mg tablet, , Disp: , Rfl: diclofenac (Voltaren) 1 % topical gel, Apply 2 g topically 4 times a day., Disp: , Rfl: fluticasone (Flonase) 50 mcg/actuation nasal spray, Administer 2 sprays into each nostril in the morning., Disp: , Rfl: ibuprofen/diphenhydramine cit (ADVIL PM ORAL), Take by mouth., Disp: , Rfl: magnesium oxide (Mag-Ox) 400 mg (241.3 mg magnesium) tablet, Take 400 mg by mouth., Disp: , Rfl: melatonin 10 mg tablet, Take 10 mg by mouth if needed each day., Disp: , Rfl: meloxicam (Mobic) 15 mg tablet, TAKE 1 TABLET EACH MORNING, Disp: , Rfl: multivitamin tablet, Take by mouth., Disp: , Rfl: omeprazole (PriLOSEC) [address] capsule, Take by mouth in the morning., Disp: , Rfl: metoprolol succinate XL (Toprol-XL) 25 mg 24 hr tablet, Take 1 tablet (25 mg) by mouth in the morning. Do not crush or chew., Disp: 30 tablet, Rfl: 11 Physical Exam Vitals reviewed. Constitutional: Appearance: Normal appearance. She is normal weight. HENT: Head: Normocephalic and atraumatic. Right Ear: External ear normal. Left Ear: External ear normal. Eyes: Extraocular Movements: Extraocular movements (more content not included)... [facility]06-13-2023 NotePatient here today c/o palpitations. Says when she was seen back in Jun 2022, she was having intermittent palpitations, usually in the mornings. Xanax always helped with this. Lately she's been waking up around 6am with palpitations and states they are worse than ever . C/o fatigue and slight chest tightness . Has been taking a full tablet of Xanax recently, instead of half. She smokes 1 PPD but denies SOB. Palpitations have increased in frequency and intensity. Review of Systems Cardiovascular: Positive for chest pain, irregular heartbeat and palpitations. All other systems reviewed and are negative.[facility] 10-21-2022 NoteCONSULTATION CONSULTATION DATE: 10/21/2022 TO: Jameel Manzanares M.D. CHIEF COMPLAINT: Includes bilateral right worse than left buttock pain, hip pain. HISTORY: She reports the pain as being 5-7/10, burning and sharp in character, which increases with activities such as standing, walking and performing transitioning maneuvers. She denies any change in bowel and bladder habits or new sensorimotor changes in the lower extremities. She feels most comfortable in the semi-recumbent position. MEDICATION: Her current medication included baclofen. She discontinued this secondary to ineffectiveness. EXAM: Her examination is notable for patient having no clinical radiculopathy or myelopathy involving the lower extremities. Patient did have significant myofascial dysfunction involving the gluteus medius, worse on the right than the left side with associated tenderness. Patient had dysesthesia and hyperesthesia long the distribution of the lateral cutaneous branch of the iliohypogastric nerve bilaterally, more significantly on the right than the left side. 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 RECOMMENDATIONS: I have asked the patient to discontinue baclofen secondary to ineffectiveness. We will trial her on Skelaxin 400 mg one b.i.d. to t.i.d. as she tolerates. I have asked her to discontinue Advil secondary to ineffectiveness. We will trial her on Mobic 15 mg b.i.d. I also discussed the possibility of proceeding with a diagnostic injection along the lateral cutaneous branch of the iliohypogastric nerve under fluoroscopic guidance bilaterally. She will contact our office if she wishes to proceed with the same. In the interim, we will continue to monitor her response to the change in medication. As part of providing excellent, safe, comprehensive care, the following was completed at our patient's visit: 1. A medication reconciliation and review to ensure accurate knowledge of current/active medications, including asking our patients to inform us about any xdef-vcx-tcecyfe medications or herbal remedies/nutritional supplements/alternative remedies. 2. A review to specifically ensure our patients have had annual screening for: elevated body mass index (BMI, see intake chart for exact total), tobacco use, screening for depression, and screening for unhealthy alcohol use. When screening is concerning, patients are provided with education and the specific recommendation to discuss the concerning health issue and treatment options with their primary care provider.[facility] [id number] Evaluation note * Encounter Date Diagnosis Assessment Notes Treatment Notes Treatment Clinical Notes Sep, Constipation (ICD-10 - K59.00) Sep, Diverticulosis (ICD-10 - K57.90) Sep, Hemorrhoids (ICD-10 - K64.9) Sep, Other Repeat colonoscopy in 5 yrs Strategic Funding Source Other 01-26-2023 [facility] NoteReview of Systems Cardiovascular: Positive for irregular heartbeat and palpitations. Negative for chest pain, claudication, cyanosis, dyspnea on exertion, leg swelling, near-syncope, orthopnea, paroxysmal nocturnal dyspnea and syncope.[facility]12-27-2022 NoteUT Cardiology Consult Note Reason for visit: Palpitations HPI: Marly Jaffe is a 67 y.o. year old with past medical history of GERD and back pain had been ecperiencing palpitations. She had a 48hr Holter placed which revealed non sustained AT. She is a smoker and has anxiety for which she takes medications. She has felt better with meds and the time she wore Holter, she felt no plapitations. She usually feels them when she wakes up and lasts for a few minutes. EKG on 04/10/2012 shows sinus rhythm with normal intervals Holter monitor that was placed on 05/17/2022 shows the presence of nonsustained atrial tachycardia of 5-6 beats noted on 04/30/2022. There was another episode of 15 beat duration of SVT noted on 04/22/2022 at 9:32 PM and another 5 beats noted on 04/15/2022, PMH: No past medical history on file. PSH: No past surgical history on file. SH: Social Determinants of Health Tobacco Use: High Risk Smoking Tobacco Use: Every Day Smokeless Tobacco Use: Never Passive Exposure: Current Alcohol Use: Not on file Financial Resource Strain: Not on file Food Insecurity: Not on file Transportation Needs: Not on file Physical Activity: Not on file Stress: Not on file Social Connections: Not on file Intimate Partner Violence: Not on file Depression: Not on file Housing Stability: Not on file Allergies: Allergies Allergen Reactions Prochlorperazine Other Other reaction(s): Other (See Comments) seizures seizures Tramadol Other and Rash Other reaction(s): GI Intolerance, GI Upset n/v Amoxicillin-Pot Clavulanate Rash Hydroxychloroquine Rash Sulfa (Sulfonamide Antibiotics) Rash Weight: No results found for: PTWEIGHT Meds: Current Outpatient Medications on File Prior to Visit Medication Sig Dispense Refill albuterol 90 mcg/actuation inhaler Inhale 2 puffs every 4 (four) hours if needed. aspirin 81 mg EC tablet Take 81 mg by mouth in the morning. calcium carbonate-vitamin D3 600 mg-10 mcg (400 unit) tablet Take by mouth. cholecalciferol, vitamin D3, 50 mcg (2,000 unit) capsule Take 2,000 Units by mouth in the morning. coenzyme Q-10 100 mg capsule Take 100 mg by mouth in the morning. cyclobenzaprine (Flexeril) 10 mg tablet diclofenac (Voltaren) 1 % topical gel Apply 2 g topically 4 times a day. magnesium oxide (Mag-Ox) 400 mg (241.3 mg magnesium) tablet Take 400 mg by mouth. melatonin 10 mg tablet Take 10 mg by mouth if needed each day. multivitamin tablet Take by mouth. TENS units device See administration instructions. ALPRAZolam (Xanax) 0.5 mg tablet Take 0.5 mg by mouth if needed in the morning, at noon, and at bedtime. baclofen (Lioresal) 20 mg tablet Take 20 mg by mouth if needed in the morning, at noon, and at bedtime. fluticasone (Flonase) 50 mcg/actuation nasal spray Administer 2 sprays into each nostril in the morning. ibuprofen/diphenhydramine cit (ADVIL PM ORAL) Take by mouth. meloxicam (Mobic) 15 mg tablet TAKE 1 TABLET EACH MORNING omeprazole (PriLOSEC) [address] capsule Take by mouth in the morning. travoprost (Travatan Z) 0.004 % drops ophthalmic solution USE 1 DROP IN BOTH EYES DAILY AT BEDTIME. No current facility-administered medications on file prior to visit. ROS: Cardiovascular: Positive for irregular heartbeat and palpitations. Negative for chest pain, claudication, cyanosis, dyspnea on exertion, leg swelling, near-syncope, orthopnea, paroxysmal nocturnal dyspnea and syncope. Physical Exam: Constitutional General Appearance: well-nourished, well-developed, appears stated age Level of Distress: comfortable Psychiatric Mental Status: alert, normal affect Orientation: oriented to time, place, and person Insight: good judgement Eyes Lids and Conjunctivae: non-injected, no xanthelasma ENMT Ears: no lesions on external ear Nose: no lesions on external nose Oropharynx: no cyanosis, no pallor Neck Neck: supple, trachea midline Carotid Arteries: bilateral normal upstroke, no bruits Jugular Veins: normal jugular venous pressure Thyroid: not enlarged Lungs Respiratory Effort: unlabored Chest Exam: normal curvature, no thoracic deformity Auscultation: clear, no wheezing, no rales, no rhonchi Cardiovascular Rate And Rhythm: regular Heart Sounds: normal S1, normal s2, no gallop Systolic Murmur: not heard Diastolic Murmur: not heard Extremities: no cyanosis, no edema, no peripheral signs of emboli Peripheral Pulses Radial Pulse: normal Abdomen Inspection and Palpation: soft, non distended, no bruit, non tender Musculoskeletal Inspection: no joint swelling Neurologic Gait: normal gait Skin Inspection and Palpation: warm and dry Nails: no clubbing Labs: @LABRESULTS@ No results found for: CHOLESTEROL TOTAL, HDL, LDL CALC, LDL DIRECT, TRIGLYCERIDES, TSH, T3 TOTAL, T4 TOTAL, THYROID PEROXIDASE AB, BNP, BNP, BNP EKG: No results found for this or any previous visit (from the past (more content not included)...[facility]12-14-2022 NotePatient Outreach (INTMMN) MARLY JAFFE ([id number]) 1955 F Date Time Provider Department 06/16/22 JYOTI GARCÍA INTMMN During your visit today, we recorded the following information about you: Allergies As of Date: 06/16/2022 Noted Allergy Reaction PROCHLORPERAZINE 11/06/2014 14 - Other: See Comments Comments: seizures TRAMADOL 11/02/2018 5 - Intolerance 8 - GI Upset AUGMENTIN (AMOXICILLIN-POT CLAVUL*10/17/2018 2 - Rash COMPAZINE (PROCHLORPERAZINE EDISY*09/07/2005 PLAQUENIL (HYDROXYCHLOROQUINE SUL*12/23/2005 2 - Rash SULFA (SULFONAMIDE ANTIBIOTICS) 09/07/2005 Date Reviewed: 10/20/2020 Reviewed by: Jojo Wesley - Fully Assessed Visit Diagnosis:Encounter for screening mammogram for breast cancer [Z12.31] Order(s):[facility] SCREENING [[id number]] Order #: [id number] FUTURE Prescriptions as of 06/21/2022 - omeprazole (PRILOSEC) 20 mg capsule TAKE 1 CAPSULE BY MOUTH EVERY DAY - travoprost (TRAVATAN Z) 0.004 % ophthalmic drops USE 1 DROP IN BOTH EYES DAILY AT BEDTIME. - COSOPT, PF, 2-0.5 % Use 1 Drop in both eyes twice daily. - melatonin 10 mg tab Take 1 tablet by mouth at bedtime as needed. - MV with Lxz-Aibvdvtr-Ivdhst (CENTRUM SILVER) 0.4-300-250 mg-mcg-mcg tab Take 1 tablet by mouth once daily. - coenzyme Q10 (CO Q-10) 100 mg cap capsule Take 1 capsule by mouth once daily. - Brimonidine-Timolol (COMBIGAN) 0.2-0.5 % Use 1 Drop in both eyes twice daily. - albuterol HFA (PROVENTIL HFA, VENTOLIN HFA) 90 mcg/actuation inhaler Inhale 2 Puffs as instructed every 4 hours as needed for Wheezing/Shortness of Breath. - diclofenac sodium (VOLTAREN) 1 % topical gel Apply 2 g to affected area four times daily. - ibuprofen/diphenhydramine cit (ADVIL PM ORAL) Take by mouth. - aspirin, enteric coated (ADULT LOW DOSE ASPIRIN) 81 mg EC tablet Take 1 tablet by mouth once daily. - Cholecalciferol, Vitamin D3, 2,000 unit cap Take 2,000 Units by mouth once daily. - linaclotide (LINZESS) 290 mcg cap Take 1 capsule by mouth as needed. Problem List As Of Date 06/16/2022 Noted Resolved Degeneration of lumbar or lumbosacral intervert*01/24/2009 10/22/2013 LUMBOSACRAL SPONDYLOSIS [M47.817] 01/24/2009 GERD (Gastroesophageal Reflux Disease) [K21.9] 03/03/2009 Allergic Rhinitis [J30.9] 03/03/2009 Colon cancer screening [Z12.11] 03/03/2009 08/02/2011 Colon Polyps [K63.5] 03/04/2009 Spinal Stenosis [M48.00] 03/04/2009 Family history of diabetes mellitus (DM) [Z83.3] Postmenopausal atrophic vaginitis [N95.2] Dyspareunia [FLX9351] 11/04/2017 Tobacco user [Z72.0] 05/03/2013 Symptomatic menopausal or female climacteric st* Screening breast examination [Z12.39] 03/30/2011 08/02/2011 Constipation [K59.00] Abnormal mammogram [R92.8] 08/02/2011 11/04/2017 Elevated BP [VKG6799] 08/02/2011 Chest pain [R07.9] 09/17/2011 05/03/2013 Tobacco dependency [F17.200] 09/17/2011 Family history of early CAD [Z82.49] 09/17/2011 Syncope [R55] 09/17/2011 Postmenopausal HRT (hormone replacement therapy*06/05/2012 Screening breast examination [Z12.39] 06/05/2012 05/03/2013 Elevated IOP [H40.059] 05/03/2013 Multiple thyroid nodules [E04.2] 05/03/2013 Family history of colon cancer [Z80.0] 03/28/2017 Smoker [F17.200] 05/03/2017 Bilateral wrist pain [M25.531, M25.532] 07/14/2017 Encounter Status:Closed by FOUZIA COLLADO on 06/21/22[facility] 05-07-2022 Miscellaneous Notes* Telephone Encounter - Judy Patel MA - 05/07/2022 7:21 AM EDT Pharmacy escribed requesting the following refill. Requested Prescriptions Pending Prescriptions Disp Refills omeprazole (PRILOSEC) 20 mg capsule [Pharmacy Med Name: OMEPRAZOLE DR 20 MG CAPSULE] 90 capsule 1 Sig: TAKE 1 CAPSULE BY MOUTH EVERY DAY Patient last appointment: 08/13/2020 Patient Phone numbers: [phone] (home) Request is for script(s) to be escript to pharmacy. Judy Patel MA documented in this encounter[facility] NoteCONSULTATION CONSULTATION DATE: 02/10/2022 This is a 66-year-old female who returns to the clinic for a 3-month follow-up for chronic lower back pain and hip pain. She was last seen on 11/26/2021 when at that time she was working with her PCP regarding a possible sleep study. Her pain was managed well with a report of pain of 2 out of 10 at that time. She had lower lumbar RFAs of L2 through L5 on 10/27/2021 which has given her 75% relief and she reports it is ongoing. She is feeling increased stiffness throughout her lumbar region as well as muscle tightness. She is currently under significant amount of stress related to an ill and mother. Her current medications include Baclofen 200 mg q.h.s. and alprazolam 1 mg p.r.n. She is compliant with a multivitamin regimen and takes Advil p.r.n. Activities that aggravate her pain are prolonged sitting and changes in the weather. She reports her underwear hemmer hours are the worst. She denies any vasomotor changes. REVIEW OF SYSTEMS, PAST MEDICAL HISTORY, ALLERGIES AND IMAGES: Have been reviewed and noted in the chart. PHYSICAL EXAM: VITAL SIGNS: Blood pressure 124/96, heart rate is 88, temperature is 96.9. Height is 63 , weighs 59.1 kg. GENERAL APPEARANCE: Pleasant and appropriate, in no acute distress. FOCUSED EXAM: NECK: CHEST: HEART: No JVD. No orthostatic deviation. BACK: Range of motion is functional to lateral rotation and flexion/extension. No reproduction of spinoaxial pain along the lower lumbar facets indicative of successful RFA. Bilateral perivertebral muscles are taut. Pippa's point is nontender bilaterally, Angelic's is negative. MUSCULOSKELETAL: Motor is intact 4 out of 5 bilaterally. The patient walks with good upright posture and without an assistive device. NEUROLLGICAL: Bilateral patellar and Achilles reflexes are intact at 2/2, negative polyneuropathy. DIAGNOSIS: Lumbar spondylosis, lumbar degenerative disk disease and osteoarthritis. PLAN: We will begin her on Mobic 15 mg q.a.m. The patient was instructed to stop the Advil. Our hopes are to capture more pain relief with her degenerative arthritis and lumbar spondylosis. She is compliant with her multivitamin regimen and was encouraged to do so. Exercise and heat were discussed as well. She will be followed up in the office in three months' time and the patient is in agreement.[facility] [id number] NoteCONSULTATION CONSULTATION DATE: 11/26/2021 HISTORY OF PRESENT ILLNESS: This is a 66-year-old female returning to the clinic status post bilateral RFAs of L2, L3 and L4, L5 with her last procedure being 10/27/2021. Patient states it has afforded her approximately 75% relief at this time. Patient feels that the changes in the weather have changed her pain pattern and she feels more inflamed. She has been having headaches as well that have been responsive to Excedrin. Overall, the patient does do daily stretches and continues to her health. She is pleased with the outcome, but understands it may take another 2-3 weeks for maximum benefit. She states she has more good days than bad days, but still has trouble lifting her laundry basket. Activities such as pushing, pulling, standing, walking, housework and the morning hours are aggravating factors. She will apply a Velcro back belt for 1-2 hours while doing heavy work, which is helpful to her. Current medications include Advil, tizanidine 4 mg b.i.d., multivitamin and Giovanna. Patient's REVIEW OF SYSTEMS / PAST MEDICAL HISTORY / ALLERGIES and IMAGES have been reviewed and they are noted on the chart. PHYSICAL EXAM: VITALS: Blood pressure is 130/86. Heart rate is 87. Temperature is 97.8. She is 5'3 and weighs 60.4 kg. GENERAL APPEARANCE: Pleasant, appropriate, no acute distress. FOCUSED EXAM - BACK: Range of motion is not guarded in lateral rotation and flexion/extension. Paravertebral muscles are taut, right greater than left. No reproduction of spinal axial pain to facet compression to the lower lumbar region. Pippa's point is non-tender. MUSCULOSKELETAL: Motor is intact, 4/5 bilaterally. Patient has stable ambulation, does not use an assistive device. NEUROLOGICALLY: Bilateral patellar reflexes are +2. Negative polyneuropathy. IMPRESSION: Lumbar spondylosis, lumbar degenerative disc, paravertebral spasms and spinal axial lower back pain. PLAN: Patient is to continue doing her daily stretches in addition to using her heat rub. She is to maintain her current vitamins and give herself more time to heal and the recovery process. I did encourage her to talk to her PCP, as she is concerned about obstructive sleep apnea. We will see her in three months' time unless otherwise indicated. Patient agrees with the plan of care. [facility] Signed and Approved by: SWEETIE ROBERTS . 12/03/2021 16:05:00[facility]08-13-2020 History of Present illness Narrative* Gail FerrariRn), RN - 02/14/2020 10:00 AM EDT Radiology Service Progress Note DATE OF SERVICE: February 14, 2020 TIME: 9:41 AM PATIENT WEIGHT: 137LBS PATIENT IDENTITY VERIFICATION COMPLETED USING TWO (2) STANDARD IDENTIFIERS: Name and Date of confirmed by patient verbally. FALL SCREENING: Has the patient had 2 falls in the last year or 1 fall with injury or currently using an Ambulatory Assistive Device (Walker, Cane, Wheelchair, Crutches, etc.)? No PATIENT GENDER DATA: Female. status: : No status: NO. ALLERGIES: Reviewed and unchanged CONTRAST ALLERGY: No EXAM: MRI - CONTRAST TYPE: GROUP II IV SITE: Ambulatory: A peripheral IV was started in the Left forearm with a Angio cath: 22 gauge. and A Saline lock was inserted per protocol IV SITE APPEARANCE: Clean,Dry and Intact SIGNATURE: Gail Ferrari RN PATIENT NAME: Marly Jaffe DATE: February 14, 2020 TIME: 9:41 AM [facility] History of Past illness Narrative* Problem Noted Date Resolved Date Screening breast examination 06/05/2012 Chest pain 09/17/2011 05/03/2013 Abnormal mammogram 08/02/2011 11/04/2017 Screening breast examination 03/30/2011 Colon cancer screening 03/03/2009 2 Degeneration of lumbar or lumbosacral interverte bral disc 01/24/2009 10/22/2013 Dyspareunia 11/04/2017 Tobacco user 05/03/2013 documented as of this encounter (statuses as of 02/01/2022) [facility] History of Past illness Narrative* Problem Noted Date Resolved Date Screening breast examination 06/05/2012 Chest pain 09/17/2011 05/03/2013 Abnormal mammogram 08/02/2011 11/04/2017 Screening breast examination 03/30/2011 Colon cancer screening 03/03/2009 2 Degeneration of lumbar or lumbosacral interverte bral disc 01/24/2009 10/22/2013 Dyspareunia 11/04/2017 Tobacco user 05/03/2013 documented as of this encounter (statuses as of 05/07/2022) [facility] History of Past illness Narrative* Problem Noted Date Resolved Date Screening breast examination 06/05/2012 Chest pain 09/17/2011 05/03/2013 Abnormal mammogram 08/02/2011 11/04/2017 Screening breast examination 03/30/2011 Colon cancer screening 03/03/2009 2 Degeneration of lumbar or lumbosacral interverte bral disc 01/24/2009 10/22/2013 Dyspareunia 11/04/2017 Tobacco user 05/03/2013 documented as of this encounter (statuses as of 06/21/2022) [facility] History of Past illness Narrative* Problem Noted Date Diagnosed Date Resolved Date Screening breast examination 06/05/2012 05/03/2013 Chest pain 09/17/2011 05/03/2013 Abnormal mammogram 08/02/2011 8 Screening breast examination 03/30/2011 08/02/2011 Colon cancer screening 03/03/200908/02 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 01/24/2009 10/22/2013 Dyspareunia 11/04/2017 Tobacco user 05/03/2013 documented as of this encounter (statuses as of 05/08/2023) [facility] Diagnosis Encounter for screening mammogram for breast cancer documented in this encounter [facility] Diagnosis Onset Date Resolution Status Encounter for screening colonoscopy [facility] Work Phone: Evaluation note* Diagnosis Chronic mixed headache syndrome Other headache syndromes documented in this encounter [facility] Discharge instructions Additional Instructions DISCHARGE INSTRUCTIONS FOR ENDOSCOPY FOR COLONOSCOPY: -Expect a gassy or full feeling after a colonoscopy. Report any NEW abdominal pain or vomiting. -Watch for rectal bleeding if you have a polyp removed. You may have oozing, but notify the doctor if you pass clots. -Avoid aspirin for 2 days IF a polyp is removed. -It is important to keep your appointments for follow up examinations because polyps can grow back. FOR SEDATION FOR 24 HOURS: -NO driving -Do NOT operate machinery such as power tools, lawn mowers, snow blowers, sewing machines, etc. -Avoid alcoholic beverages and drugs for allergies, nerves, or sleep. -Do NOT stay alone. Do NOT leave your child unattended. -Do NOT make important personal or business decisions or sign any legal documents. -Eat solid foods and drink liquids in smaller amounts than usual until normal appetite returns. If you should experience an upset stomach, liquids high in sugar content (soda, Gabriel-aid, non-acid juices) are recommended. -You can resume normal activities tomorrow. FOLLOW UP Please call the office and make a follow up appointment to see me in 6-8 weeks. Eat kiwi fruit Repeat colonoscopy in 5 years Watchup 1 p.o. every morning -Notify the doctor if you have any problems. -Office number [phone] Work Phone: Instructions* Name Dates Details Instructions not documented [facility] Work Phone: Reason for referral (narrative)* Diagnostic Procedure Only (Routine) - Pending Review Specialty Diagnoses / Procedures Referred By Zaid gutiérrez Referred To Contact [facility] Diagnoses Encounter for screening mammogram for breast cancer Procedures DOLORES SCREENING SCREENING MAMMOGRAPHY BI 2-VIEW [place] Jyoti García [place] [address] [place] [address] [facility] [address] [place] [address] Referral ID Status Reason Start Date Expiration Date Visits Requested Visits Authorized [id number] Pending Review Auto-Generat ed Referral 2 07/16/2023 1 1 [facility] Diagnostic Procedure Only (Routine) - Closed Specialty Diagnoses / Procedures Referred By Contac t Referred To Contact [facility] Diagnoses Chronic mixed headache syndrome G44.89 (ICD-10-CM) - Chronic mixed headache syndrome Procedures MRI BRAIN WO/W IVCON MRI BRAIN COMBO MRI BRAIN WO/[place]CON Jyoti García [place] [address] [place] [address] [place] [address] Referral ID Status Reason Start Date Expiration Date V isits Requested Visits Authorized [id number] Closed Auto-Generate d Referral 02/11/2020 07/03/[address] 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 Directive(s) 12/04/2012 9:42 PM Advance Directive(s) 11/29/2012 9:09 PM Documents on File Type Date Recorded 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 Directive(s) 12/04/2012 9:42 PM Advance Directive(s) 11/29/2012 9:09 PM Advance Directive Response Recorded Date/ Time Advance Directives No July 28, 2022 2:19pm Chief Complaint and Reason for Visit Chief Complaint Constipation, Hx Col on Polyps, Fam Hx Colon Ca Reason for Visit Encounter for screen ing colonoscopy Additional Source Comments INFORMATION SOURCE (unrecogn ized section and content) DATE CREATED AUTHOR 11/12/2018 Siva Bernardo al DATE CREATED AUTHOR AUTHOR'S ORGANIZ ATION 06/18/2019 [facility] DATE CREATED AUTHOR AUTHOR'S ORGANIZ ATION 05/01/2020 [employer] DATE CREATED AUTHOR AUTHOR'S ORGANIZ ATION 08/01/2022 [facility] DATE CREATED AUTHOR AUTHOR'S ORGANIZ ATION 10/26/2022 [facility] DATE CREATED AUTHOR AUTHOR'S ORGANIZ ATION 05/30/2023 [facility] DATE CREATED AUTHOR AUTHOR'S ORGANIZ ATION 06/21/2023 [facility] Source Comments (unrecognize d section and content) In the event this informatio n is protected by the Federal Confidentiality of Alcohol and Drug Abuse Patient Records regulations: The Federal rules restrict any use of the information to criminally investigate or prosecute any alcohol or drug abuse patient.[facility] Hospital[facility] the event this information is protected by the Federal Confidentiality of Alcohol and Drug Abuse Patient Records regulations: The Federal rules restrict any use of the information to criminally investigate or prosecute any alcohol or drug abuse patient.[facility] Hospital[facility] the event this information is protected by the Federal Confidentiality of Alcohol and Drug Abuse Patient Records regulations: The Federal rules restrict any use of the information to criminally investigate or prosecute any alcohol or drug abuse patient.[facility] HospitalIn the event this information is protected by the Federal Confidentiality of Alcohol and Drug Abuse Patient Records regulations: The Federal rules restrict any use of the information to criminally investigate or prosecute any alcohol or drug abuse patient.[facility] Reason for Visit (unrecogniz ed section and content) Reason Comments Refill Request Reason Comments Radiology MRI Specialty Diagnoses / Procedures Referred By Zaid t Referred To Contact MR IMAGING Diagnoses Chronic mixed headache syndrome G44.89 (ICD-10-CM) - Chronic mixed headache syndrome Procedures MRI BRAIN WO/W IVCON MRI BRAIN COMBO MRI BRAIN WO/[place]CON Jyoti García [place] [address] [place] [address] [place] [address] Referral ID Status Reason Start Date Expiration Date V isits Requested Visits Authorized [id number] Closed Auto-Generate d Referral 02/11/2020 07/03/2020 1 1 Care Teams (unrecognized sec tion and content) Electrotherapist Relationship Specialty Start Date End Date Jyoti García [place] [address] [place] [address] PCP - General Internal Medicine 09/11/19 Electrotherapist Relationship Specialty Start Date [place] Jyoti García [place] [address] [place] [address] PCP - General Internal Medicine 09/11/19 Electrotherapist Relationship Specialty Start Date [place] Jy[place] García [place] [address] [place] [address] PCP - General Internal Medicine 09/11/19 Team Status: Inactive Member Role Status Dates Enrrique Grant MD Attending Provider Active Jameel Manzanares MD Primary Care Provider Active Team Status: Active Member Role Status Dates Jameel Manzanares MD Primary Care Provider Active Electrotherapist Relationship Specialty Start Date [place] Jyoti García [place] [address] [place] [address] PCP - General Internal Medicine 09/11/19 FOR RECORDS PERTAINING TO PATIENTS WHO ARE OR HAVE BEEN ENROLLED IN A CHEMICAL DEPENDENCY/SUBSTANCEABUSE PROGRAM, SOME INFORMATION MAY BE OMITTED. This clinical summary was aggregated from multiple sources. Caution should be exercised in using it in the provision of clinical care. This summary normalizes information from multiple sources, and as a consequence, information in this document may materially change the coding, format and clinical context of patient data. In addition, data may be omitted in some cases. CLINICAL DECISIONS SHOULD BE BASED ON THE PRIMARY CLINICAL RECORDS. [employer] provides no warranty or guarantee of the accuracy or completeness of information in this document.
== END 2023-05-11 12:42 | disposition home or self-care (01) ==
LOC: PM 12:42
PROVIDERS: PCP Family Medicine; Visit Provider Nurse Practitioner
DX: M47.816 Spondylosis without myelopathy or radiculopathy, lumbar region (principal); M47.814 Spondylosis without myelopathy or radiculopathy, thoracic region; M62.838 Other muscle spasm; M19.90 Unspecified osteoarthritis, unspecified site; Z79.899 Other long term (current) drug therapy
CPT/HCPCS: G0463

== ENCOUNTER 2023-05-13 14:57 | Outpatient (RCR) | payer MEDICARE, SELFPAY | END 2023-07-03 08:26 | disposition home or self-care (01) | LOC: PT 14:57 | PROVIDERS: PCP Family Medicine; Visit Provider Nurse Practitioner | DX: M47.816 Spondylosis without myelopathy or radiculopathy, lumbar region (principal); M19.90 Unspecified osteoarthritis, unspecified site | CPT/HCPCS: 97110; 97113; 97161 ==

== ENCOUNTER 2023-06-02 14:05 | Outpatient (OUT) | payer MEDICARE, SELFPAY ==
--- NOTE | 2023-06-02 14:12 | XR_ITS ---
The [address] [address] Patient Name: MARLY JAFFE MRN: [id number] date: 1955 Sex: F Assigned Patient Location: [facility] Current Patient Location: [facility] Accession/Order Number: [id number] Exam Date: 06/02/2023 14:30 Report Date: 06/02/2023 15:41 At the request of: SHARONDA CALIX Procedure: XR chest 2V EXAM: XR chest 2V HISTORY: Chronic Cough R05.3 COMPARISON: 08/04/2022 TECHNIQUE: Upright PA and lateral chest x-ray FINDINGS: The heart is not enlarged and the vasculature is not distended. Linear atelectasis or scarring is seen in the infrahilar region bilaterally. Interval clearing of the atelectasis in the left lower lung. No acute infiltrate, effusion or pneumothorax is identified. Diffuse osteopenia is noted with a mild pectus deformity. A loop recorder is noted. XR/XR chest 2V IMPRESSION: A small amount of linear atelectasis or scarring is seen in the infrahilar regions bilaterally. There is no evidence of a focal infiltrate or overt cardiac decompensation. Electronically authenticated by: GLEN MIDDLETON Date: 06/02/2023 15:41
--- NOTE | 2023-06-02 14:12 | XR_ITS ---
The [place] [id number] Patient Name: MARLY JAFFE MRN: [id number] date: 1955 Sex: F Assigned Patient Location: RAD Current Patient Location: [facility] Accession/Order Number: [id number] Exam Date: 06/02/2023 14:30 Report Date: 06/04/2023 06:14 At the request of: SHARONDA CALIX Procedure: XR sinus min 3V EXAMINATION: XR sinus min 3V HISTORY: Chronic Sinusitis J32.0 , congestion, difficulty breathing COMPARISON: No relevant comparison available. FINDINGS: MAXILLARY: Mucosal thickening and fluid level within right maxillary sinus. Suspect mild mucosal thickening within the left sinus. ETHMOID: No mucosal thickening or fluid level. FRONTAL: Poorly defined margins, likely due to mucosal thickening. SPHENOID: No mucosal thickening or fluid level. OTHER: Negative. XR/XR sinus min 3V IMPRESSION: 1. Acute on chronic paranasal sinusitis. Electronically authenticated by: ÁNGEL ANTHONY Date: 06/04/2023 06:14
--- NOTE | 2023-06-02 14:14 | US_ITS ---
The [address] [address] Patient Name: MARLY JAFFE MRN: [id number] date: 1955 Sex: F Assigned Patient Location: [facility] Current Patient Location: Accession/Order Number: [id number] Exam Date: 06/02/2023 14:15 Report Date: 06/04/2023 06:04 At the request of: SHARONDA CALIX Procedure: US soft tissue head and neck EXAM: US soft tissue head and neck HISTORY: Swelling Mass Lump Neck R22.1 ; right lateral neck lump for one year COMPARISON: None. TECHNIQUE: Percutaneous ultrasound. FINDINGS: No mass, lymph nodes, or fluid collection to correspond to patient's lump. 7 mm TR 3 nodule incidentally noted within right thyroid lobe. US/US soft tissue head and neck IMPRESSION: 1. No suspicious findings to account for patient's symptoms. Clinical follow-up recommended. Electronically authenticated by: ÁNGEL ANTHONY Date: 06/04/2023 06:04
== END 2023-06-02 14:06 | disposition home or self-care (01) ==
PROVIDERS: PCP Family Medicine; Visit Provider Family Medicine
DX: R22.1 Localized swelling, mass and lump, neck (principal); R05.3 Chronic cough; J32.0 Chronic maxillary sinusitis
CPT/HCPCS: 70220; 71046; 76536

== ENCOUNTER 2023-06-30 13:44 | Outpatient (OUT) | payer MEDICARE, SELFPAY ==
--- OUTSIDE RECORDS SUMMARY | 2023-06-30 13:47 | XMS_ITS | CCD ---
Author Name Unknown Address [address] [place] [address] Organization [facility] Care Team Providers Care Blockmason Name Role Phone ERWIN DYE Attending Unavailable Abbass, Rami Unavailable Unavailable Unknown, Referring Provider Unavailable Unav ailable Abbkayce, Rami Unavailable Unavailable Chaya PAUL, Rami Unavailable Unavailable Unknown, Referring Provider Unavailable Unav ailable Raquel PAUL, Jyoti Lugo Primary Care Provider Raquel PAUL, Jyoti Lugo Primary Care Provider [phone] Jyoti García MD Primary Care Provider MD Enrrique Grant Attending Provider [phone] MD Jameel Manzanares Primary Care Provider Enrrique Grant Attending UnavailEnrrique Contreras Admitting Unavailabl e Jameel Manzanares Primary Care Unavailable Enrrique Grant Unavailable ROSANA ., DR ANTONELLA Lugo Consulting Unavailable NADERELuba, DR JAMEEL Ellis Primary Care Unavailable WAYNE ., DR ANTONELLA Lugo Attending Unavailable WAYNE ., DR ANTONELLA Lugo Admitting Unavailable RAJ, DR ÁNGEL Verduzco Consulting Unavailable NADERER, DR JAMEEL Ellis Primary Care Unavailable NADERER, DR JAMEEL Ellis Attending Unavailable NADERER, DR JAMEEL Ellis Admitting Unavailable NADERER, DR JAMEEL Ellis Consulting Unavailable KIERAN PETERSEN Consulting Unavailable NADGALILEA, DR JAMEEL Ellis Primary Care Unavailable KIERAN PETERSEN Attending Unavailable KIERAN PETERSEN Admitting Unavailable KARASIMateo ., DR MADRID Consulting Unavailabl e NADERER, DR JAMEEL Ellis Primary Care Unavailable KARASIK ., DR MADRID Attending Unavailabl e KARASIK ., DR MADRID Admitting Unavailabl e ZIEBRAKESH, DR ÁNGEL Verduzco Consulting Unavailable ROBERTS .SWEETIE Consulting Unavailable NADERER, DR JAMEEL Ellis Primary Care Unavailable WAYNE ., DR ANTONELLA Lugo Attending Unavailable WAYNE ., DR ANTONELLA Lugo Admitting Unavailable ROBERTS ., SWEETIE Consulting Unavailable NADERER, DR JAMEEL Ellis Primary Care Unavailable WAYNE ., DR ANTONELLA Lugo Attending Unavailable WAYNE ., DR ANTONELLA Lugo Admitting Unavailable WAYNE ., DR ANTONELLA Lugo Consulting Unavailable NADERER, DR JAMEEL Ellis Primary Care Unavailable WAYNE ., DR ANTONELLA Lugo Attending Unavailable WAYNE ., DR ANTONELLA Lugo Admitting Unavailable MOSS, RAFAELA Consulting Unavailable LAKSHMIPATHY ., NARARACELIATH Consulting Amelia vailable NADERER, DR JAMEEL Ellis [...] Attending Unavailable JOSE VILLALOBOS Attending Unavailable JOSE VILLALBOOS Attending Unavailable KIERAN PETERSEN Admitting Unavailable KIERAN PETERSEN Attending Unavailable KAYY VASQUEZ Attending Unavailable KIERAN PETERSEN Attending Unavailable Allergies Allergy Classification Reported Allergen(s) Allergy Type Date of Onset Reaction(s) Facility Prochlorperazine (1 source) Prochlorperazine Drug Allergy [facility] Work Phone: Sulfonamides (antibiotic) (1 source) Sulfonamides (Antibiotic) Drug Allergy [facility] [employer] Work Phone: (5 sources) Hydroxychloroquine; 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: [HYDROXYCHLOROQUINE SULFATE] Drug Allergy Rash [facility] Repository (8 sources) Sulfonamides (Antibiotic); 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: [SULFA (SULFONAMIDE ANTIBIOTICS)] Propensity to adverse reactions to drug (disorder) Unknown Reaction [facility] Repository (6 sources) AMOXICILLIN-POT CLAVULANATE; 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: [AMOXICILLIN-POT CLAVULANATE] Propensity to adverse reactions to drug (disorder) 019 Rash [facility] Repository (5 sources) PROCHLORPERAZINE EDISYLATE; 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: [PROCHLORPERAZINE EDISYLATE] Propensity to adverse reactions to drug (disorder) 006 [facility] Repository (4 sources) Sulfonamides (Antibiotic) drug allergy [facility] [employer] Work Phone: (1 source) drug allergy [facility] [employer] Work Phone: (12 sources) Prochlorperazine; 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: [Compazine] Drug Allergy Unknown [facility] Repository (6 sources) Prochlorperazine; 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: [PROCHLORPERAZINE] Drug Allergy 006 Other: See Comments [facility] (5 sources) traMADol; 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: [TRAMADOL] Drug Allergy 019 Intolerance, GI Upset [facility] (1 source) Prochlorperazine Drug Allergy 023 [facility] Repository (8 sources) Sulfacetamide / Sulfur Drug Allergy Unknown [facility] Other (1 source) Sulfonamides (Antibiotic) Drug allergy (disorder) [facility] Repository (1 source) Hydroxychloroquine; 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: [HYDROXYCHLOROQUINE ] Drug Allergy 006 [facility] Repository Medications Current Medications Medication Drug Class(es) Dates Sig (Normalized) Sig (Original) [id number] actuat albuterol 0.09 mg/actuat metered dose inhaler (10 sources) beta2-Adrenergic Agonist Start: 06-02-2023 take 2 [...] Breath. alendronic acid 70 mg oral tablet (7 sources) Bisphosphonate Alendronate Sodi um 70 MG 1 tablet once a week Active ALPRAZolam 1 mg oral tablet (9 sources) Benzodiazepine Start: 06-21-20 take 1 tablet by mouth three times daily as needed Xanax 1 MG 1 tablet Orally three times a day prn for 30 days Jun, Active Start: 07-29-2022 take 1 mg by mouth once daily Alprazolam Active 1 MG PO Daily July 29, 2022 12:00am take 1 tablet by mali th three times daily as needed Xanax 1 MG 1 tablet Orally three times a day prn Active amLODIPine 5 mg oral tablet (7 sources) Dihydropyridine Calcium Channel Mirian take 1 tablet by mouth every twenty-four hours amLODIPine Besylate 5 MG 1 tablet once a day Active amoxicillin 875 mg / clavulanate 125 mg oral tablet (7 sources) Penicillin-class Antibacterial Start: take 1 tablet by mouth every twelve hours Amoxicillin-Pot Clavulanate 875-125 MG 1 tablet Orally every 12 hrs for 10 day(s) Apr, Active ascorbic acid 1000 mg oral tablet (9 sources) Vitamin C Start: 023 take 1 g by mouth once daily Ascorbic Acid (Vitamin C) (Vitamin C) 1,000 mg Tablet Active 1 GM PO Daily July 29, 2022 12:00am Vitamin C Active aspirin 81 mg oral tablet (13 sources) Platelet Aggregation Inhibitor, Nonsteroidal Anti-inflammatory Drug Start: 07-29-2022 take 81 mg by mouth once daily Aspirin Active 81 MG PO Daily July 29, 2022 12:00am Start: 03-28-2017 take 1 tablet by mali th once daily aspirin, enteric coated (ADULT LOW DOSE ASPIRIN) 81 mg EC tablet Take 1 tablet by mouth once daily. 0 03/28/2017 Active Aspirin 81 Activ e Comment on above: Take 1 tablet by mali th once daily. azithromycin 250 mg oral tablet (3 sources) Macrolide Antimicrobial Start: 06-17-20 Azithromycin 250 MG as directed Orally 2 tabs po today, then 1 tab daily x 4 more days for 5 Jun, Active B Complex (8 sources) B Complex Active baclofen 20 mg oral tablet (2 sources) gamma-Aminobutyric Acid-ergic Agonist Start: 07-29-19 23 take 20 mg by mouth once daily Baclofen Active 20 MG PO Daily July 29, 2022 12:00am bisacodyl 5 mg delayed release oral tablet (1 source) Stimulant Laxative Start: 07-29-19 23 take 1 tablet by mouth once daily at bedtime Bisacodyl (Dulcolax (Bisacodyl)) 5 mg Tablet,Delayed Release (Dr/Ec) Active 5 MG PO Daily at bedtime July 29, 2022 12:00am calcium carbonate 1250 mg oral tablet (2 sources) Start: 07-29-19 23 take 500 mg by mouth once daily [...] 12:00am Start: 03-28-2017 take 1 capsule by [facility] once daily Cholecalciferol, Vitamin D3, 2,000 unit cap Take 2,000 Units by mouth once daily. 0 03/28/2017 Active Comment on above: Take 2,000 Units by mouth once daily. chondroitin sulfates 200 mg / glucosamine hydrochloride 250 mg oral tablet (2 sources) Start: 07-29-2022 take 1 tablet by mouth after mealtime Glucosamine-Chond roitin (Osteo Bi-Flex) 250-200 mg Tablet Active 1 TAB PO after meals July 29, 2022 12:00am Osteo Bi-Flex On e Per Day Active fexofenadine hydrochloride 180 mg oral tablet (9 sources) Histamine-1 Receptor Antagonist Start: 07-29-2022 take 180 mg by mouth once daily Fexofenadine Active 180 MG PO Daily July 29, 2022 12:00am Giovanna Active ibuprofen 200 mg oral tablet (14 sources) Nonsteroidal Anti-inflammatory Drug Start: 07-29-2022 take 1 tablet by mouth once daily Ibuprofen (Advil) 200 mg Tablet Active 200 MG PO Daily July 29, 2022 12:00am Advil Active Advil TABS TAKE 2 TABLETSPO QHS Refills: 0 Active Advil TABS TAKE 2 TABLETSPO QHS Refills: 0 DO Active Magnesium (9 sources) Start: 07-29-2022 take 1 tablet by [facility] once daily Magnesium Active 1 TAB PO Daily July 29, 2022 12:00am Magnesium Active meloxicam 15 mg oral tablet (7 sources) Nonsteroidal Anti-inflammatory Drug take 1 tablet by mouth every twelve hours Meloxicam 15 MG 1 tablet bid Active methocarbamol 500 mg oral tablet (7 sources) Muscle Relaxant Methocarbamol 50 0 MG 1 tablet 2-3 times a day prn Active methylPREDNISolone 4 mg oral tablet (6 sources) Corticosteroid Start : 06-02 methylPREDNISolone 4 MG as directed Orally for 6 days May, Active 24 hr metoprolol succinate 25 mg extended release oral tablet (7 sources) beta-Adrenergic Mirian take 1 tablet by mouth every twenty-four hours Metoprolol Succinate ER 25 MG 1 tablet once a day Active montelukast 10 mg oral tablet (7 sources) Leukotriene Receptor Antagonist take 1 tablet by mouth every twenty-four hours Montelukast Sodium 10 MG 1 tablet once a day Active Multivitamin preparation (1 source) Start : 07-29 take 1 tablet by mouth once daily Multivitamin Active 1 TAB PO Daily July 29, 2022 12:00am Lenore 3 (8 sources) Lenore 3 Active Lenore-3 Fatty Acids (1 source) Start : 07-29 take 1000 mg by mouth once daily Lenore-3 Fatty Acids Active 1000 MG PO Daily July 29, 2022 12:00am omeprazole 20 mg delayed release oral tablet (19 sources) Proton Pump Inhibitor Start : 07-29 [...] on above: TAKE 1 CAPSULE BY MO [facility] EVERY DAY travoprost (12 sources) Prostaglandin Analog Start: take 1 drop(s) into the eye(s) once [...] DAILY AT BEDTIME. ubidecarenone 100 mg oral capsule (4 sources) Start: 07-29-2022 Coenzyme Q10 (Co Q-10) 100 mg Capsule Active 100 MG PO Daily July 29, 2022 12:00am Start: 07-07-2020 take 1 capsule by mo ut once daily coenzyme Q10 (CO Q-10) 100 mg cap capsule Take 1 capsule by mouth once daily. 0 07/07/2020 Active Comment on above: Take 1 capsule by [facility] once daily. Vitamin B Complex (1 source) Start: 07-29-2022 take 1 tablet by mouth once daily Vitamin B Complex Active 1 TAB PO Daily July 29, 2022 12:00am Vitamin D3 (8 sources) Vitamin D3 Activ e Womens One Daily (8 sources) Womens One Daily Active Completed/Discontinued Medications [...] sources) alpha-Adrenergic Agonist, beta-Adrenergic Mirian Start: 06-30-2020 Brimonidine-Timolol (COMBIGAN) 0.2-0.5 % Use 1 Drop [...] Comment on above: Take 1 tablet by [facility] twice daily as needed for Muscle Spasm. [...] source) Carbonic Anhydrase Inhibitor, beta-Adrenergic Mirian Start: 10-21-19 21 take 1 drop(s) into the eye(s) twice daily COSOPT, PF, 2-0.5 % Use 1 Drop in both eyes twice daily. 60 Each 3 10/20/2020 Active Comment on above: Use 1 Drop in both e yes twice daily. fluticasone propionate 0.05 mg/actuat metered dose nasal spray (12 sources) Corticosteroid Start: 06-08-20 18 Fluticasone Propionate 50 MCG/ACT Nasal Suspension Quantity: 16 Refills: [...] on above: Take 1 capsule by mo [facility] daily at bedtime for 30 days. ibuprofen/diphenhy dramine cit (ADVIL PM ORAL) (4 sources) ibuprofen/diphen hy dramine cit (ADVIL PM ORAL) Take by mouth. [...] on above: Take 1 capsule by mo ut as needed. lubiprostone 0.008 mg oral capsule (2 sources) Chloride Channel Activator Start: 04-30-2020 take 1 capsule by mouth twice daily Amitiza 8 MCG Oral Capsule TAKE 1 CAPSULE BY MOUTH TWICE A DAY Quantity: 180 Refills: 1 Chaya PAUL, Krzysztof Start : 30-Apr-2020 Active Magnesium Oxide (5 [...] above: Take 1 tablet by mali th at bedtime as needed. Take 1 capsule by mo [facility] once daily. MV with Rbj-Dlgedsra-Xlifol (CENTRUM SILVER) 0.4-300-250 mg-mcg-mcg tab (1 source) Start: 07-07-19 take 1 tablet by mouth once daily MV with Rrs-Bowornzb-Bhrrru (CENTRUM SILVER) 0.4-300-250 mg-mcg-mcg tab Take 1 tablet by mouth once daily. 30 tablet 3 07/07/2020 Active Comment on above: Take 1 tablet by mali th once daily. nortriptyline 10 mg oral capsule (1 source) Tricyclic Antidepressant Start: 01-29-20 End: 05-16-20 20 take 1 capsule by mouth once daily at bedtime nortriptyline (PAMELOR) 10 mg capsule Take 1 capsule by mouth daily at bedtime. 30 capsule 5 01/29/2020 05/16/2020 Discontinued Comment on above: Take 1 capsule by mo [facility] daily at bedtime. triamcinolone acetonide 40 mg/ml injectable suspension (7 sources) Corticosteroid Start: 05-19-20 23 Kenalog-40 16 May, 2023 40 mg Womens One Daily Oral Tablet [...] [PALPITATIONS] Onset: 2 Episodic Diverticulosis and diverticulitis (9 sources) Diverticular disease of colon; 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: [Diverticulosis [...] 3 Episodic Other and unspecified benign neoplasm (8 sources) History of polyp of colon; 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: [...] [Chronic idiopathic constipation] Episodic Other gastrointestinal disorders (12 sources) Constipation; 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: [Constipation, unspecified] 03-30-2011 Episodic [...] lump, neck Episodic Other upper respiratory disease (11 sources) Allergic rhinitis; 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: [Allergic rhinitis, unspecified] Onset: 9 03-03-2009 Chronic Other upper respiratory disease (1 source) Allergic rhinitis, unspecified Chronic Other upper respiratory infections (7 sources) Chronic bilateral maxillary sinusitis; 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: [Chronic maxillary sinusitis] Chronic Other upper respiratory infections (1 source) Postnasal drip Episodic Residual codes; unclassified (4 sources) Family [...] 06-05-2012 Episodic Other aftercare (4 sources) Other care home (current) drug therapy; 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: [OTH CORRECTION CURRENT DRUG THERAPY] Onset: 2 Episodic Other and unspecified benign neoplasm (4 sources) Polyp of colon; 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: [Polyp of colon] Onset: 9 03-04-2009 Episodic Other bone disease and musculoskeletal deformities (1 source) Other specified disorders of bone density and structure, right thigh; 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: [OTH D/O BONE DEN STRUCT RT THIGH] Onset: [...] neoplasm of other organs or systems; 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: [[facility] HX SIVA NEOPLASM OTH ORGN/SYS] Onset: 2 Episodic Residual codes; unclassified (1 source) Family history of malignant neoplasm of trachea, bronchus and lung; 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: [[facility] HX SIVA NEOPLSM TRACH BRON LNG] Onset: 2 Episodic Residual codes; unclassified (1 source) Family history of malignant neoplasm of digestive organs; 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: [[facility] HX SIVA NEOPLASM DIGESTIV ORGN] Onset: 2 Episodic Spondylosis; [...] Results Test Name Value Interpretation Reference Range Facility Office Visiton 06-20-2023 Follow-up visit [id number] Marly Jaffe 1955 F Date Provider Department [place] 06/20/2023 [facility] Family History Problem Relation Age of Onset Stroke Mother Hypertension Mother Cancer Mother Stroke Father Other Father Family Status - Relation Status Age at Mother Father Level of Service:33844 [place] OFFICE/OUTPATIENT ESTABLISHED MOD MDM 30 MIN Normal [facility] HPon 05-19-2023 HP H&P reviewed. The patient was examined and there are no changes to the H&P. Normal [facility] HP H&P reviewed. The patient was examined and there are no changes to the H&P. Normal [facility] NURSNOTEon 05-19-[address] Petersen for pt to discharge at this time. [facility]IMUS RN educated pt on d/c instructions. RN encouraged pt to voice any questions or concerns. Pt verbalizes no questions or concerns at this time. Pt was wheeled off of unit with all of belongings. [facility] HP 04-26-2023 [facility] Cardiology Consult Note Reason for visit: Palpitations, [...] capsule Take by mouth in the morning. ibuprofen/diphenhydr amine cit (ADVIL PM ORAL) Take by mouth. No current facility-administere d medications on file prior to visit. ROS: Review of Systems Cardiovascular: Positive for chest pain, dyspnea on exertion, irregular heartbeat and palpitations. Respiratory: Positive for shortness of breath. All other systems reviewed and are negative. Physical Exam: Constitutional General Appearance: well-nourished, well-developed, appears stated age Level of Distress: comfortable Psychiatric Mental Status: alert, normal affect Orientation: oriented to (more content not included)... Normal [facility] Office Visiton 04-26-2023 Follow-up visit [id number] Marly Jaffe 1955 Provider Department Center 04/26/2023 241-KIERAN PETERSEN SUSANA [facility] Family History Problem Relation Age of Onset Stroke Mother Hypertension Mother Cancer Mother Stroke Father Other Father Family Status - Relation Status Age at Mother Father Level of Service:72919 [place] OFFICE/OUTPATIENT ESTABLISHED HIGH MDM 40-54 MIN Normal [facility] Office Visiton 02-16-2023 Follow-up visit [id number] Marly Jaffe 1955 Provider Department Center 02/16/2023 Abraham-JOSE VILLALOBOS Family History Problem Relation Age of Onset Stroke Mother Hypertension Mother Cancer Mother Stroke Father Other Father Family Status - Relation Status Age at Mother Father Level of Service:26708 [place] OFFICE/OUTPATIENT ESTABLISHED MOD MDM 30-39 MIN Normal [facility] Office Visiton 01-12-2023 Follow-up visit [id number] Marly Jaffe 1955 Date Provider Department Center 01/12/2023 JOSE CASTILLO SUSANA [facility] Family History Problem Relation Age of Onset Stroke Mother Hypertension Mother Cancer Mother Stroke Father Other Father Family Status - Relation Status Age at Mother Father Level of Service:70622 [place] OFFICE/OUTPATIENT ESTABLISHED MOD [facility] 30-39 MIN Reason for Visit and Comments: Follow-up [507861] - 1 month follow up Normal [facility] Office Visiton 12-14-2022 Follow-up visit [id number] Marly Jaffe 1955 Date Provider Department Center 12/14/2022 SeanMargaretteKAYY VASQUEZ [facility] Family History Problem Relation Age of Onset Stroke Mother Hypertension Mother Cancer Mother Stroke Father Other Father Family Status - Relation Status Age at Mother Father Level of Service:82229 [place] OFFICE/OUTPATIENT ESTABLISHED MOD [facility] 30-39 MIN Reason for Visit and Comments: Palpitations [836273] Normal [facility] CT LUNG CANCER SCREENINGon 0 08-04-2022 CT [...] ÁNGEL PUGH Date: 2022-08-04 14:41 Normal [facility] XR RIBS BIL_PA CH 4V OR GRon [...] ÁNGEL PUGH Date: 2022-08-04 14:45 Normal [facility] XR TSPINE MIN 4 VIEWSon XR TSPINE MIN 4 VIEWS EXAMINATION: XR TSPINE MIN 4 VIEWS HISTORY: Pain in thoracic [...] by: ÁNGEL PUGH Date: 2022-08-04 14:42 Normal [facility] Desean 07-29-2022 L Specimen: [id number] Received: 07/29/22 Status: HUY Dinah Num: [id number] Spec Type: Surgical Subm Dr: Enrrique Grant MD Tissues: A Colon Biopsy (POLYP SIGMOID) Procedures: HE/Deborah, Gross/Micro L4 Age/ Patient Sex Location Account Attending Physician Marly Jfafe 67/F [id number] Enrrique Grant MD SPEC NUM: [id number] RECD: 07/29/22 STATUS: HUY DINAH NUM: [id number] SALOMON: 07/29/22- [facility] DR: Enrrique Grant MD ENTERED: 07/29/22 RADHA QUICK: SPEC TYPE: Surgical DEPT: S ORDERED: HE/2, [...] support the above pathologic diagnosis. CPT Codes 46290 Specimen: [id number] Received: 07/29/22 Status: HUY Dinah Num: [id number] Spec Type: Surgical Subm Dr: Enrrique Grant MD Tissues: A Colon Biopsy (POLYP SIGMOID) Procedures: HE/2, Gross/Micro L4 Patient: Marly Jaffe [id number] (Continued) Signed (signature on file) Benjamin Wolf MD 07/30/22 1133 [facility] ECHOCARDIO M/2D COMPLETEon 0 07-13-2022 ECHOCARDIO M/2D COMPLETE Patient: MARLY JAFFE Exam Date: 07/13/2022 : 1955 Gender:F Ordering : KIERAN Meng CHACKO Admission #: [id number] Family : Order #: [id number] CLICK HERE TO VIEW EXAM ECHOCARDIOGRAM REPORT [...] Mak M.D. on 07/15/2022 at 10:33 Normal [facility] Orders Onlyon 07-12-2022 Orders Only [id number] Marly Jaffe 1955 F Date Provider Department Center 07/12/2022 KYLE PALM [facility] No family history on file Normal [facility] Office Visiton 06-29-2022 Follow-up visit [id number] Marly Jaffe 1955 F Date Provider Department Center 06/29/2022 KIERAN FRIEDMAN [facility] No family history on file Level of Service:49908 [place] OFFICE/OUTPATIENT NEW MODERATE MDM 45-59 MINUTES Reason for Visit and Comments: Palpitations [207171] - Pt states she has a rapid heart and due to the results of the heart monitor she was referred here. Normal [facility] MG MAMM SCREEN 3D LAWRENCE CADon 06-23-2022 MG MAMM SCREEN 3D LAWRENCE CAD Patient: MARLY JAFFE. Exam Date: 06/23/2022 : 1955 Gender:F Ordering : DR MERCY MORGAN . Admission #: [id number] Family : Order #: [id number] CLICK HERE TO VIEW EXAM RADIOLOGY REPORT [...] colon cancer at age 51. LOCATION: [facility] BREAST COMPOSITION: Scattered areas fibroglandular density. FINDINGS: [...] Ángel Pugh M.D. on 06/23/2022 at 14:39 [facility] PAP ACOG PANEL 2: 30 to 65on 06-23-2022 . . Normal [facility] Comment on above: Performed By: #### [id number] #### [facility] [address] [place] [address] Dr. Jeramy Dumont Age Gdln ACOG Testing Comment [facility] Comment on above: Result Comment: <21 or >65 or no age provided Performed By: #### [id number] #### [facility] [address] [place] [address] Dr. Jeramy Dumont DIAGNOSIS: Comment [facility] Comment on above: Result Comment: NEGA TIVE FOR INTRAEPITHELIAL LESION OR MALIGNANCY. REACTIVE CELLULAR CHANGES AND/OR REPAIR ARE PRESENT. Performed By: #### [id number] #### [facility] [address] [place] [address] Dr. Jeramy Dumont Electronically signed by: Comment [facility] Comment on above: Result Comment: Bere Aguilar MD, Pathologist Performed By: #### [id number] #### [facility] [address] [place] [address] Dr. Jeramy Dumont Methodology: Comment [facility] Comment on above: Result Comment: This liquid based ThinPrep(R) pap test was screened with the use of an image guided system. Performed By: #### [id number] #### [facility] [address] [place] [address] Dr. Jeramy Dumont Note: Comment [facility] Comment on above: Result Comment: The Pap smear is a screening test designed to aid in the detection of premalignant and malignant conditions of the uterine cervix. It is not a diagnostic procedure and should not be used as the sole means of detecting cervical cancer. Both false-positive and false-negative reports do occur. . Performed By: #### [id number] #### [facility] [address] [address] [address] Jeramy Dumont Performed by: Comment Normal [facility] Comment on above: Result Comment: Norma Mancia Employee Communications Coordinator (ASCP) Performed By: #### [id number] #### [facility] [address] [address] [address] Jeramy Dumont Specimen adequacy: Comment Normal [facility] Comment on above: Result Comment: Sati sfactory for evaluation. Endocervical and/or squamous metaplastic cells (endocervical component) are present. Performed By: #### [id number] #### [facility] [address] [place] [address] Dr. Jeramy Dumont XR DEXA BONE DENSITYon [...] by: ÁNGEL PUGH Date: 2022-06-23 11:46 Normal [facility] CBC AUTO DIFFon 04-27-2022 BASO # 0.1 103/ul Normal 0.0-0.1 [facility] Comment on above: Performed By: #### C BC ####[facility] [address] [place] [address]Dr. Jeramy Dumont Basophils/100 WBC (Bld) 0.6 % Normal 0.2-2.0 [facility] Comment on above: Performed By: #### C BC ####[facility] [address] [place] [address]Dr. Jeramy Dumont EO # 0.2 103/ul Normal 0.0-0.7 [facility] Comment on above: Performed By: #### C BC ####[facility] [address] [place], [place] [address]Dr. Jeramy Dumont Eosinophils/100 WBC (Bld) 1.9 % Normal 0.9-7.0 [facility] Comment on above: Performed By: #### C BC ####[facility] [address]saw[address] [place], [place] [address]Dr. Jeramy Dumont Erythrocyte distribution width (RBC) [Ratio] 13.3 % Normal 11.0-15.0 [facility] Comment on above: Performed By: #### C BC ####[facility] E[address]qf[address]jwu[address] [place], [place] [address]Dr. Jeramy Dumont Hematocrit (Bld) [Volume fraction] 41.1 % Normal 36.0-48.0 [facility] Comment on above: Performed By: #### C BC ####[facility] Roogfpbknv[address] [place], [place] [address]Dr. Jeramy Dumont Hemoglobin (Bld) [Mass/Vol] 13.4 g/dL Normal 12.0-16.0 [facility] Comment on above: Performed By: #### C BC ####[facility] Pnwh[address]ysiw[address] [place], [place] [address]Dr. Jeramy Dumont IG # 0.02 10e3/ul Normal 0.00-0.03 [facility] Comment on above: Performed By: #### C BC ####[facility] Tylecqev[address] [place], [place] [address]Dr. Jeramy Dumont IG % 0.2 % Normal 0.0-0.5 [facility] Comment on above: Performed By: #### C BC ####[facility] Lxgideemac[address] [place], [place] [address]Dr. Jeramy Dumont LYMPH # 3.2 103/ul Normal 1.2-3.8 [facility] Comment on above: Performed By: #### C BC ####[facility] [address]ty[address] [place] [address]Dr. Jeramy Tim Lymphocytes/100 WBC (Bld) 39.1 % Normal 20.5-60.0 [facility] Comment on above: Performed By: #### C BC ####[facility] [address] [place] [address]Dr. Moniquelaura Dumont MANUAL DIFF REQ NO Normal [facility] Comment on above: Performed By: #### C BC ####[facility] [address]cpvv[address] [place] [address]Dr. Moniquelaura Dumont MCH (RBC) [Entitic mass] 30.7 pg Normal 26.7-34.0 [facility] Comment on above: Performed By: #### C BC ####[facility] Xltukmespq[address] [place], [place] [address]Dr. Moniquelaura Dumont MCHC (RBC) [Mass/Vol] 32.6 g/dL Normal 29.9-35.2 [facility] Comment on above: Performed By: #### C BC ####[facility] Dnzjgbz[address] [place], [place] [address]Dr. Jeramy Dumont MCV (RBC) [Entitic vol] 94.3 fL Normal 81.0-99.0 [facility] Comment on above: Performed By: #### C BC ####[facility] Duwazoxtci[address] [place], [place] [address]Dr. Jeramy Dumont MONO # 0.6 103/ul Normal 0.3-0.8 [facility] Comment on above: Performed By: #### C BC ####[facility] Jukywrddvl[address] [place], [place] [address]Dr. Jeramy Dumont Monocytes/100 WBC (Bld) 6.6 % Normal 1.7-12.0 [facility] Comment on above: Performed By: #### C BC ####[facility] Owybs[address]chv[address] [place], [place] [address]Dr. Jeramy Dumont NEUT # 4.3 103/ul Normal 1.4-6.5 [facility] Comment on above: Performed By: #### C BC ####[facility] [address]axzi[address] [place] [phone]. Jeramy Dumont Neutrophils/100 WBC (Bld) 51.6 % Normal 43.0-75.0 [facility] Comment on above: Performed By: #### C BC ####[facility] [address] [place] [phone]. Jeramy Dumont Platelet mean volume (Bld) [Entitic vol] 9.8 fL Normal 9.5-13.5 [facility] Comment on above: Performed By: #### C BC ####[facility] [address] [place] [id number]. Jeramy Dumont PLT 283 103/ul Normal 150-450 [facility] Comment on above: Performed By: #### C BC ####[facility] [address] [place] [phone]. Jeramy Dumont RBC 4.36 106/ul Normal 4.20-5.40 [facility] Comment on above: Performed By: #### C BC ####[facility] A[address]xtxdkap[address] [place] [phone]. Jeramy Dumont WBC 8.3 103/ul Normal 4.0-11.0 [facility] Comment on above: Performed By: #### C BC ####[facility] Q[address]izxff[address] [place] [phone]. Jeramy Duomnt FREE T3on 04-27-2022 FREE T3 2.20 pg/mlL Normal 2.18-3.98 [facility] Comment on above: Performed By: #### F T3, TSH, BMP, LIVER ####[facility] [address] [place] [id number]. Jeramy Dumont FREE T4on 04-27-2022 Free T4 [Mass/Vol] 0.96 ng/dL Normal 0.76-1.46 [facility] Comment on above: Performed By: #### F T4 ####[facility] [address] [place] [phone]. Jeramy Dumont LIVER PROFILEon 04-27-2022 Albumin [Mass/Vol] 3.7 g/dL Normal 3.4-5.0 [facility] Comment on above: Performed By: #### F T3, TSH, BMP, LIVER #### [facility] [address] [place] [address] Dr. Jeramy Dumont Albumin/Globulin [Mass ratio] 1.1 {ratio} Normal [facility] Comment on above: Performed By: #### F T3, TSH, BMP, LIVER #### [facility] [address] [place] [address] Dr. Jeramy Dumont ALP [Catalytic activity/Vol] 64 U/L Normal 46-116 [facility] Comment on above: Performed By: #### F T3, TSH, BMP, LIVER #### [facility] [address] [place] [address] Dr. Jeramy Dumont ALT [Catalytic activity/Vol] 28 U/L Normal 14-59 [facility] Comment on above: Performed By: #### F T3, TSH, BMP, LIVER #### [facility] [address] [place] [address] Dr. Jeramy Dumont AST [Catalytic activity/Vol] 16 U/L Normal 15-37 [facility] Comment on above: Performed By: #### F T3, TSH, BMP, LIVER #### [facility] [address] [place] [address] Dr. Jeramy Dumont BILI, CONJUGATED 0.1 mg/dL Normal 0.0-0.2 [facility] Comment on above: Performed By: #### F T3, TSH, BMP, LIVER #### [facility] [address] [place] [address] Dr. Jeramy Dumont Bilirubin [Mass/Vol] 0.2 mg/dL Normal 0.2-1.0 [facility] Comment on above: Performed By: #### F T3, TSH, BMP, LIVER #### [facility] [address] [place] [address] Dr. Jeramy Dumont Globulin (S) [Mass/Vol] 3.5 g/dL Normal [facility] Comment on above: Performed By: #### F T3, TSH, BMP, LIVER #### [facility] [address] [place] [address] Dr. Jeramy Dumont Protein [Mass/Vol] 7.2 g/dL Normal 6.4-8.2 [facility] Comment on above: Performed By: #### F T3, TSH, BMP, LIVER #### [facility] [address] [address] [address] Jeramy Dumont PROF CHEM 8 (BAS METB)on Anion gap [Moles/Vol] 10.3 mmol/L Normal [facility] Comment on above: Performed By: #### F T3, TSH, BMP, LIVER #### [facility] [address] [address] [address] Jeramy Dumont Calcium [Mass/Vol] 9.0 mg/dL Normal 8.5-10.1 [facility] Comment on above: Performed By: #### F T3, TSH, BMP, LIVER #### [facility] [address] [place] [address] Dr. Jeramy Dumont Chloride [Moles/Vol] 105 mmol/L Normal 98-107 [facility] Comment on above: Performed By: #### F T3, TSH, BMP, LIVER #### [facility] [address] [address] [address] Jeramy Dumont CO2 [Moles/Vol] 30.7 mmol/L Normal 21.0-32.0 [facility] Comment on above: Performed By: #### F T3, TSH, BMP, LIVER #### [facility] [address] [address] [address] Jeramy Dumont Creatinine [Mass/Vol] 0.85 mg/dL Normal 0.55-1.02 [facility] Comment on above: Performed By: #### F T3, TSH, BMP, LIVER #### [facility] [address] [address] [address] Jeramy Dumont EGFR-AF VENEZUELAN >60 Normal >=60 [facility] Comment on above: Performed By: #### F T3, TSH, BMP, LIVER #### [facility] [address] [address] [address] Jeramy Dumont EGFR-NON AF VENEZUELAN >60 Normal >=60 [facility] Comment on above: Performed By: #### F T3, TSH, BMP, LIVER #### [facility] [address] [address] [address] Jeramy Dumont Glucose [Mass/Vol] 101 mg/dL Normal 74-106 [facility] Comment on above: Performed By: #### F T3, TSH, BMP, LIVER #### [facility] [address] [address] [address] Jeramy Dumont Potassium [Moles/Vol] 4.0 mmol/L Normal 3.5-5.1 [facility] Comment on above: Performed By: #### F T3, TSH, BMP, LIVER #### [facility] [address] [address] [address] Jeramy Dumont Sodium [Moles/Vol] 142 mmol/L Normal 136-145 [facility] Comment on above: Performed By: #### F T3, TSH, BMP, LIVER #### [facility] [address] [address] [address] Jeramy Dumont Urea nitrogen [Mass/Vol] 15.0 mg/dL Normal 7.0-18.0 [facility] Comment on above: Performed By: #### F T3, TSH, BMP, LIVER #### [facility] [address] [address] [address] Jeramy Dumont Urea nitrogen/Creatinine [Mass ratio] 17.6 mg/mg Normal [facility] Comment on above: Performed By: #### F T3, TSH, BMP, LIVER #### [facility] [address] [address] [address] Jeramy Dumont TSHon 04-27-2022 TSH 0.960 uIU/mL Normal 0.358-3.740 [facility] Comment on above: Performed By: #### F T3, TSH, BMP, LIVER ####[facility] [address] [place] [address]Dr. Jeramy Dumont [facility]03 SARS-CoV-2 (COVID-19) RNA TRAVON+probe Ql (Unsp spec) Not detected Normal NOT DETECTED [facility] Comment on above: Result Comment: This test is not yet approved or cleared by the [place] FDA. When there are no FDA-approved or cleared tests available, and other criteria are met, FDA can make tests available under an emergency access mechanism called an Emergency Use Authorization (EUA). The EUA for this test is supported by the [place] of Health and Human Service's (HHS's) declaration [...] consistent with SARS-CoV-2. Performed By: #### C [facility] ####[facility] [address] [place], [place] [address]Hm. Jeramy Dumont Established Visit (Gastroent erology)on 04-30-2020 Established Visit (Gastroenterology) Diagnoses/Problems Assessed Chronic idiopathic constipation (564.00) (K59.04) Esophageal reflux (530.81) (K21.9) Orders Chronic idiopathic constipation Start: Amitiza 8 MCG Oral Capsule; Take 1 capsule twice daily Rx By: Krzysztof Larkin; Dispense: 0 Days ; #:60 Capsule; Refill: 1;For: Chronic idiopathic constipation; ASHLYN = N; [id number]; Last Updated By: CellPly; 04/30/2020 1:37:03 PM Esophageal reflux Renew: Omeprazole 20 MG Oral Capsule Delayed Release; TAKE 1 CAPSULE DAILY Rx By: Krzysztof Larkin; Dispense: 0 Days ; #:90 Capsule; Refill: 1;For: Esophageal reflux; ASHLYN = N; Verified Transmission to [id number]; Last Updated By: CellPly; 04/30/2020 1:37:11 PM Patient Discussion/Summary Change omeprazole [...] headache. Psychiatric: no anxiety and no depression. Hematologic/Lymphati c: no tendency for easy bleeding and no [...] Tablet Vitals Vital Signs Recorded: 30Apr2020 01:17PM [id number] F Height5 ft 3 in Ajndra732 lb BMI Sagmszakdr91.74 BSA Calculated1.63 Physical Exam Constitutional General appearance: [...] Normal Touchworks MRI BRAIN WO/W IVCONon 02-13 [facility] C-Reactive Proteinon 019 CRP mass conc mg/L Normal 0.0-0.4 [facility] Comment on above: Performed By: #### C BCDIF, CRP #### [facility] [address] [place] [address] #### WSR #### [facility] [address] [place], [place] [address] CBC and Differentialon 10-31 Abs Baso 0.05 k/uL Normal <0.11 [facility] Comment on above: Performed By: #### C BCDIF, CRP #### [facility] [id number] [place] [address] [address] [place] [address] #### WSR #### [facility] [address] [place] [phone] Abs Atlantic 0.49 k/uL Normal <0.87 [facility] Comment on above: Performed By: #### C BCDIF, CRP #### [address] [place] [address] #### WSR #### [facility] [address] [place] [phone] Abs Neut 6.28 k/uL Normal 1.45-7.50 [facility] Comment on above: Performed By: #### C BCDIF, CRP #### [address] [place] [address] #### WSR #### [place] [address] [place] [phone] Absolute nRBC <0.01 Normal <0.01 [facility] Comment on above: Performed By: #### C BCDIF, CRP #### [address] [place] [address] #### WSR #### [facility] [address] [place] [phone] Basophils/100 WBC (Bld) 0.6 % Normal [facility] Comment on above: Performed By: #### C BCDIF, CRP #### [address] [place] [address] #### WSR #### [facility] [address] [place] [phone] DTYPE Auto Diff Normal [facility] Comment on above: Performed By: #### C BCDIF, CRP #### [address] [place] [address] #### WSR #### [facility] [address] [place] [phone] Eosinophils #/vol (Bld) 0.08 10*3/uL Normal <0.46 [facility] Comment on above: Performed By: #### C BCDIF, CRP #### [address] [place] [address] #### WSR #### [place] [address] [place] [phone] Eosinophils/100 WBC (Bld) 0.9 % Normal [facility] Comment on above: Performed By: #### C BCDIF, CRP #### [address] [place] [address] #### WSR #### [place] [phone] Erythrocyte distribution width Ratio (RBC) 13.5 % Normal 11.5-15.0 [facility] Comment on above: Performed By: #### C BCDIF, CRP #### [address] [place] [address] #### WSR #### [place] [phone] Hematocrit Volume Fraction (Bld) 42.3 % Normal 36.0-46.0 [facility] Comment on above: Performed By: #### C BCDIF, CRP #### [address] [place] [address] #### WSR #### [facility] [address] [place] [phone] Hemoglobin mass conc (Bld) 14.0 g/dL Normal 11.5-15.5 [facility] Comment on above: Performed By: #### C BCDIF, CRP #### [address] [place] [address] #### WSR #### [facility] [address] [place] [address] Lymphocytes #/vol (Bld) 2.07 10*3/uL Normal 1.00-4.00 [facility] Comment on above: Performed By: #### C BCDIF, CRP #### [address] [place] [address] #### WSR #### [place] [address] Lymphocytes/100 WBC (Bld) 23.1 % Normal [facility] Comment on above: Performed By: #### C BCDIF, CRP #### [address] [place] [address] #### WSR #### [place] [address] MCH Entitic mass (RBC) 31.1 pG Normal 26.0-34.0 [facility] Comment on above: Performed By: #### C BCDIF, CRP #### [address] [place] [address] #### WSR #### [place] [address] [place] [address] MCHC mass conc (RBC) 33.1 g/dL Normal 30.5-36.0 [facility] Comment on above: Performed By: #### C BCDIF, CRP #### [address] [facility] #### WSR #### [facility] [address] [place] [phone] MCV Entitic volume (RBC) 94.0 fL Normal 80.0-100.0 [facility] Comment on above: Performed By: #### C BCDIF, CRP #### [address] [place] [address] #### WSR #### [facility] [address] [place] [address] Monocytes/100 WBC (Bld) 5.5 % Normal [facility] Comment on above: Performed By: #### C BCDIF, CRP #### [address] [place] [address] #### WSR #### [facility] [address] [place] [address] Neutrophils/100 WBC (Bld) 69.9 % Normal [facility] Comment on above: Performed By: #### C BCDIF, CRP #### [address] [place] [address] #### WSR #### [facility] [address] [place] [address] NRBCs 0.0 /100 WBC Normal 0 [facility] Comment on above: Performed By: #### C BCDIF, CRP #### [address] [place] [address] #### WSR #### [facility] [address] [address] Platelet mean volume Entitic volume (Bld) 9.5 fL Normal 9.0-12.7 [facility] Comment on above: Performed By: #### C BCDIF, CRP #### [address] [facility] #### WSR #### [facility] [address] [place] [address] Platelets #/vol (Bld) 279 10*3/uL Normal 150-400 [facility] Comment on above: Performed By: #### C BCDIF, CRP #### [facility] [address] [facility] [place] [address] #### WSR #### [facility] [address] [place] [address] RBC #/vol (Bld) 4.50 10*6/uL Normal 3.90-5.20 [facility] Comment on above: Performed By: #### C BCDIF, CRP #### [address] [place] [address] #### WSR #### [facility] [address] [place] [address] WBC #/vol (Bld) 8.97 10*3/uL Normal 3.70-11.00 [facility] Comment on above: Performed By: #### C BCDIF, CRP #### [address] [place] [address] #### WSR #### [facility] [address] [place] [address] ED NOTEon 10-31-2018 ED NOTE HNO ID: [id number] Author: Erwin Dye MD Service: Emergency Medicine Author Type: Physician Type: ED Notes Filed: 11/03/2018 2:16 PM Note Text: Doing better, followed up with spine Normal [facility] ED NOTE HNO ID: [id number] Author: Vasquez (Rn) STEVE Winchester Service: ? Author Type: Registered Nurse Type: ED Notes Filed: 10/31/2018 9:15 AM Note Text: Pt to the ED by elliot CARBAJAL c/c 04/12 lower back pain she states a chronic [...] - notify physician of changes in condition [facility] ED NOTE HNO ID: [id number] Author: Lubna (Rn) STEVE Dumont Service: ? Author Type: Registered Nurse Type: ED Notes Filed: 10/31/2018 9:08 AM Note Text: Bed: ED-15 Expected date: Expected time: Means of arrival: Comments: [facility] ED PROV NOTEon 10-31-2018 Protein mass conc HNO ID: [id number] Author: Erwin Dye MD Service: Emergency Medicine Author Type: Physician [...] has TENS unit at home. Evaluated by running specialist earlier today who advised her to [...] - Symptomatic menopausal or female climacteric states 2005 age 51; 11/2011 nl DXA - Thrush - Tobacco user PAST SURGICAL HISTORY Procedure Laterality Date - COLONOSCOPY 03/2003 with polypectomy - COLONOSCOPY 11/2006 - COLONOSCOPY 11/2013 - DANDC, DIAG AND/OR THERAPEUTIC Dilation AND curettage several - EGD 11/2017 [facility] - EGD 11/2013 - ENLARGE BREAST WITH IMPLANT 2001 Breast augmentation- saline - HEMIARTHROPLASTY CUP 2006 right knee- Dr. Killian - THERMAL ENDOMETRIAL [...] Ordered and Reviewed CBC + AUTO DIFF (AK,AV,EU,FV,HL,FLORENTIN,M M,SP) SED RATE ERYTHROCYTE (AK,AV,EU,FV,HL,FLORENTIN,M M,SP) C-REACTIVE PROTEIN (CRP) (AK,AV,EU,FV,HL,FLORENTIN,M M,SP) URINALYSIS WITH MICROSCOPIC (AK,AV,EU,FV,HL,FLORENTIN,M M,SP) Procedures ED Course / Clinical Impression Clinical [...] SIGNATURE: MD Erwin Zarco MD 10/31/18 1421 Normal [facility] Sed Rate Westergrenon 2018 Sed Rate Westergren 8 mm/hr Normal 0-20 [facility] Comment on above: Performed By: #### C BCDIF, CRP #### [facility] [address] [place] [address] #### WSR #### [facility] [address] [place], [place] [address] Dermatopathologyon 9 Dermatopathology Pathologist: SETH BERNAL MD Date of Procedure: 09/12/2018 Date Received: 09/13/2018 Date Reported 09/14/2018 Submitting Physician: KEILY CRAIN MD Location: [facility] FINAL DIAGNOSIS SKIN, RIGHT TAOIST, EXCISION: CHANGES CONSISTENT WITH PREVIOUS PROCEDURE, PRESENT ON THE DEEP AND PERIPHERAL MARGIN WITHOUT RESIDUAL SQUAMOUS CELL CARCINOMA SEEN. Electronically Signed Out by SETH BERNAL M.D. Electronically Signed Out By SETH BERNAL MD/[facility] Microscopic Description: Microscopic examination reveals a specimen that extends into the subcutaneous fat. An area with horizontally oriented collagen and vertically oriented vessels is present. Clinical History: Invasive SCC. Re-excision (B). Specimens Submitted As: A: SKIN, RIGHT TAOIST Gross Description: Received in formalin is a craig piece of skin measuring 16 x 5 x 1 mm. Inked and embedded in toto in two blocks. z/09/13/2018 Normal [facility] Comment on above: Performed By: #### D #### Dermatopathology Dermatopathologyon 9 Dermatopathology Pathologist: SETH BERNAL MD Date of Procedure: 07/11/2018 Date Received: 07/12/2018 Date Reported 07/13/2018 Submitting Physician: KEILY CRAIN MD Location: [facility] FINAL DIAGNOSIS A. 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 B. SKIN, RIGHT TAOIST, BIOPSY: CONSISTENT WITH INVASIVE SQUAMOUS CELL CARCINOMA, WELL DIFFERENTIATED, PRESENT ON THE DEEP MARGIN, SEE NOTE. Note: Microscopic examination reveals a specimen that extends into the superficial dermis. There are areas of invagination of the epidermis with a slight downward bulbous growth pattern. There is mild to moderate solar elastosis. Electronically Signed Out by SETH BERNAL M.D. Electronically Signed Out By SETH BERNAL MD/[facility] Microscopic Description: A. 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 Clinical History: A: NAD. B: ISK vs. SCC. Specimens Submitted As: A: SKIN, RIGHT PHAM B: SKIN, RIGHT TAOIST Gross Description: A: Received in formalin is a craig-brown piece of skin measuring [id number]. The specimen is inked and embedded in toto. B: Received in formalin is a craig piece of skin measuring [id number]. The specimen is inked and embedded in toto. ink/07/12/2018 Normal [facility] Comment on above: Performed By: #### D #### Dermatopathology Vital Signs Date Time Vital Sign Value Performing Clinician Facility 06-02-2023 13:15-0500 Body height 160.02 cm Estelle Michele Other [facility] Other 06-02-2023 13:15-0500 Body mass index (BMI) [Ratio] 23.27 kg/m2 Estelledeng Bautista Other [facility] Other 06-02-2023 13:15-0500 Body temperature 96.9 [degF] Estelle Bautista Other [facility] Other 06-02-2023 13:15-0500 Body weight 59.6 kg Estelle Bautista Other [facility] Other 06-02-2023 13:15-0500 Diastolic blood pressure 79 mm[Hg] Estelle Bautista Other [facility] Other 06-02-2023 13:15-0500 SaO2% (BldA) [Mass fraction] 95 % Estelle Bautista Other [facility] Other 06-02-2023 13:15-0500 Systolic blood pressure 120 mm[Hg] Estelle Bautista Other [facility] Other 09-17-2022 11:00-0400 Body height 167.64 cm Enrrique Grant Other [facility] Other 09-17-2022 11:00-0400 Body mass index (BMI) [Ratio] 20.98 kg/m2 Enrrique Grant Other [facility] Other 09-17-2022 11:00-0400 Body weight 58.97 kg Enrrique Grant Other [facility] Other 09-17-2022 11:00-0400 Diastolic blood pressure 97 mm[Hg] Enrrique Grant Other [facility] Other 09-17-2022 11:00-0400 Systolic blood pressure 139 mm[Hg] Enrrique Grant Other [facility] Other 07-29-2022 12:11-0500 Diastolic blood pressure 84 mm[Hg] MD Jameel Manzanares Work Phone: [facility] 07-29-2022 12:11-0500 Heart rate 71 /min MD Jameel Manzanares Work Phone: [facility] 07-29-2022 12:11-0500 Respiratory rate 16 /min MD Jameel Manzanares Work Phone: [facility] 07-29-2022 12:11-0500 SaO2% (BldA) [Mass fraction] 96 % MD Jameel Manzanares Work Phone: [facility] 07-29-2022 12:11-0500 Systolic blood pressure 120 mm[Hg] MD Jameel Manzanares Work Phone: [facility] 07-29-2022 09:45-0500 Body height 160.02 cm MD Jameel Manzanares Work Phone: [facility] 07-29-2022 09:45-0500 Body temperature 98.4 [degF] MD Jameel Manzanares Work Phone: [facility] 07-29-2022 09:45-0500 Body weight 58.96 kg MD Jameel Manzanares Work Phone: [facility] Encounters Encounter Date Encounter Type Care Provider Facility Start: 06-21-2023 End: 06-21-2023 ambulatory Estelle Bautista Other [facility] Other Start: 06-21-2023 Telephone encounter Estelle Bautista [facility] Start: 06-20-2023 End: 06-20-2023 ambulatory [facility] Start: 06-20-2023 Telephone encounter Estelle Bautista [facility] Start: 06-17-2023 End: 06-17-2023 ambulatory Estelle Bautista Other [facility] Other Start: 06-17-2023 Telephone encounter Estelle Bautista [facility] Start: 06-06-2023 End: 06-06-2023 ambulatory Estelle Bautista Other [facility] Other Start: 06-06-2023 Telephone encounter Estelle Bautista [facility] Start: 06-02-2023 End: 06-02-2023 ambulatory Estelle Bautista Other [facility] Other Start: 06-02-2023 Office outpatient visit 25 minutes Estelle Bautista [facility] Start: 05-19-2023 Nursing evaluation o f patient and report Estelle Bautista [facility] Start: 05-19-2023 End: 05-19-2023 [facility] Start: 04-26-2023 End: 04-26-2023 ambulatory [facility] Start: 02-16-2023 End: 02-16-2023 ambulatory [facility] Start: 01-12-2023 End: 01-12-2023 ambulatory [facility] Start: 12-14-2022 End: 12-14-2022 ambulatory [facility] Start: 10-21-2022 End: 10-22-2022 ambulatory AAKASH DORANMIPATHY . Facility:[facility] Start: 09-17-2022 End: 09-17-2022 ambulatory Enrrique Grant Other [facility] Other Start: 09-17-2022 Office outpatient visit 15 minutes Enrrique Grant [facility] Start: 08-04-2022 End: 08-05-[address] ÁNGEL PUGH Facility:[facility] Start: 07-29-2022 End: 07-29-2022 ambulatory Enrrique Grant Facility:[facility] Start: 07-29-2022 End: 07-29-2022 Admission to same day surgery center MD Jameel Manzanares Work Phone: [facility] Work Phone: Start: 07-29-2022 End: 07-29-2022 ambulatory MD Jameel Manzanares Work Phone: [facility] Work Phone: Start: 07-13-2022 End: 07-14-2022 ambulatory KIERAN PETERSEN Facility:[facility] Start: 06-29-2022 End: 06-29-2022 ambulatory KIERAN PETERSEN [facility] Start: 06-23-2022 End: 06-24-[address] MERCY MORGAN . Facility:[facility] Start: 06-16-2022 ambulatory Jyoti García MD Work Phone: [facility] [place] Start: 06-11-2022 End: 06-11-[address] MERCY [...] laboratory examination DR ANTONELLA WAYNE . [facility] Start: 10-27-2021 End: 10-27-[address] ANTONELLA WAYNE . Facility:[facility] Start: 10-26-2021 End: 10-27-2021 Encounter for preprocedural laboratory examination DR ANTONELLA WAYNE . Facility:[facility] Start: 10-26-2021 End: 10-27-[address] ANTONELLA WAYNE . 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] Start: 10-31-2018 End: 10-31-2018 Emergency department patient visit [facility] Start: 08-25-2018 Patient encounter procedure Krzysztof Larkin [facility] Work Phone: Start: 11-02-2017 Patient encounter procedure Krzysztof Larkin [facility] Work Phone: Start: 10-21-2017 Patient encounter procedure Krzysztof Larkin [facility] Work Phone: Procedures Date Procedure Procedure Detail Performing Clinician Start: 07-29-2022 Colonoscopy MD Jameel og Work Phone: Start: 08-13-2020 Adult depression scr eening assessment Jojo Wesley OD Work Phone: Start: 02-14-2020 Mri brain [...] panel - Serum or Plasma Lipid Screening [facility] Start: 09-11-2024 LIPID SCREEN LIPID SCREEN [facility] Start: 03-04-2023 Influenza vaccination Influenza Vacc ine (#1) [facility] Start: 09-11-2022 [facility]ABET[facility]CRE[facility] Start: 09-11-2022 Diabetes Screening Diabetes Screenin g [facility] Start: 07-29-2022 [facility] Start: 07-04-2022 Advance Directive Discussion Advance Directive Discussion [facility] Start: 07-04-2022 Colonoscopy COLONOSCOPY [facility] Start: 07-04-2022 COLORECTAL CANCER SCREENING COLORECTAL CANCER SCREENING [facility] Start: 07-04-2022 Depression Assessment Depression Ass essment [facility] Start: 03-04-2022 Influenza vaccination INFLUENZA (#1) [facility] Start: 08-13-2021 Adult depression screening assessment DEPRESSION SCREENING [facility] Start: 07-04-2021 ADVANCE DIRECTIVE DISCUSSION ADVANCE DIRECTIVE DISCUSSION [facility] Start: 07-04-2021 [facility] Start: 03-30-2021 Urine microalbumin profile [facility] Start: 09-12-2019 Mammography [facility] Start: 2016 RSV Vaccine (1 - 1-d ose 60+ series) RSV Vaccine (1 - 1-dose 60+ series) [facility] Start: 05-23-2014 Pneumococcal Vaccine : 65+ (2 - PCV) Pneumococcal Vaccine: 65+ (2 - PCV) [facility] Start: 05-23-2014 PNEUMOCOCCAL: 65+ (2 - PCV) PNEUMOCOCCAL: 65+ (2 - PCV) [facility] Start: 11-30-2013 FECAL OCCULT BLOOD FECAL OCCULT BLOO D [facility] Start: 2006 SHINGRIX VACCINE (1 of 2) SHINGRIX VACCINE (1 of 2) [facility] Start: 2001 COLOGUARD (FIT-DNA) COLOGUARD (FIT-D NA) [facility] Start: [address] COLONOGRAPHY [facility] Start: 2001 SIGMOIDOSCOPY SIGMOIDOSCOPY [facility] Start: 1955 COVID-19 VACCINE (#1) COVID-19 VACCI NE (#1) [facility] End: 07-16-2023 DOLORES SCREENING DOLORES SCREENING Radiology Routine Encounter for screening mammogram for breast cancer 1 Occurrences starting 06/16/2022 until 07/16/2023 [facility] Work Phone: Comment on above: 1 Occurrences starti ng 06/16/2022 until 07/16/2023 Patient Education Hemorrhoids Co desean Polyps Diverticulosis (DC) [facility] Work Phone: Immunizations Immunization Date Immunization Notes Care Provider Cierra christian 05-19-2023 influenza, high dose seasonal, preservative-free Estelle Bautista Other [facility] Other 06-19-2020 influenza, injectabl e, quadrivalent, contains preservative Jojo Foster OD Work Phone: [facility] 06-19-2020 influenza virus vacc ine, unspecified formulation Mri (I-Stat/1.5t) [facility] 09-11-2019 influenza, injectabl e, quadrivalent, contains preservative Jojo Foster OD Work Phone: [facility] 09-11-2019 zoster vaccine, recombinant, adjuvanted, (SHINGRIX, PF,) 50 mcg/0.5 mL injection Mri (I-Stat/1.5t) [facility] Work Phone: Comment on above: Inject 0.5 mL intram uscularly now and repeat 2nd dose in 2-6 months 03-28-2017 influenza, injectabl e, quadrivalent, contains preservative Jojo Foster OD Work Phone: [facility] 08-12-2016 influenza, injectabl e, quadrivalent, preservative free Jojo Foster OD Work Phone: [facility] Work Phone: 04-14-2015 influenza, injectabl e, quadrivalent, preservative free Jojo Foster OD Work Phone: [facility] Work Phone: 05-23-2013 influenza virus vacc ine, unspecified formulation Jojo Foster OD Work Phone: [facility] 05-23-2013 pneumococcal polysaccharide vaccine, 23 valent Jooj Foster OD Work Phone: [facility] 04-13-2012 influenza virus vacc ine, unspecified formulation Jojo Foster OD Work Phone: [facility] 03-30-2011 tetanus toxoid, redu rukhsana diphtheria toxoid, and acellular pertussis vaccine, adsorbed Jojo Foster OD Work Phone: [facility] Payers Date Payer Category Payer Self-pay 2019 Unknown ANTHEM BLUE CARD PPO OOS [id number] 2019-Present [phone] [facility] [id number] [place] [address] PPO [id number] 2019 Unknown ANTHMARY LOU BLUE CARD PPO OOS [id number] 2019-Present [phone] [address] [place] [address] PPO [id number] 1959 Private Health Insurance 101 [id number] 1956 Unknown [id number] 1956 Unknown [id number] 1956 Unknown [id number] [id number] 1956 Unknown [id number] [id number] 93 1956 Unknown [id number] [id number] 1956 Unknown [id number] [id number] 1956 Unknown [id number] [id number] 1956 Unknown [id number] [id number] 1956 Unknown [id number] [id number] 1956 Unknown [id number] [id number] 1956 Unknown [id number] [id number] 93 1956 Unknown [id number] [id number] 93 1956 Unknown [id number] [id number] 93 Unknown [id number] 31 Social History Date Type Detail Facility Start: 07-04-1985 [facility] Start: 07-04-1985 History of tobacco use Cigarette Smo ker [facility] Start: 01-29-2020 End: 10-20-2020 Alcohol intake Current drinker of alcohol (finding) [facility] Start: 01-18-2020 End: 02-28-2020 History SDOH Alcohol Frequency 2 [facility] Start: 01-18-2020 End: 02-28-2020 History SDOH Alcohol Std Drinks 1 [facility] Start: 07-25-2014 History SDOH Alcohol Comment 1 drink per year [facility] Start: 09-11-2019 End: 01-18-2020 History SDOH Social Connections Phone 3 [facility] Start: 01-18-2020 History SDOH Physica l Activity DPW 5 [facility] Start: 09-11-2019 Education 15 [facility] Start: 09-11-2019 Tobacco Comment current 0.5-1ppd [facility] Start: 1955 Sex Assigned At Female C [facility] Start: 09-11-2019 End: 01-18-2020 Cigarettes smoked current (pack per day) - Reported 0.8 [facility] Start: 09-11-2019 Tobacco use and exposure Smoke less tobacco non-user [facility] Work Phone: Start: 07-29-2022 [facility] Start: 09-11-2019 End: 01-18-2020 Sex Assigned At [facility] Frequency of Communication with Friends and Family Not on file [facility] Do you belong to any clubs or organizations such as zoroastrianism groups, unions, fraternal or athletic groups, or school groups? Yes [facility] How often to you hav e a drink containing alcohol? Monthly or less [facility] How many standard dr inks containing alcohol do you have on a typical day? 1 or 2 [facility] How often do you hav e 6 or more drinks on 1 occasion? Never [facility] Do you feel stress - tense, restless, nervous, or anxious, or unable to sleep at night because your mind is troubled all the time - these days [OSQ] Only a little [facility] (I/We) worried wheth er (my/our) food would run out before (I/we) got money to buy more. Never true [facility] In the past 12 month s, was there a time when you were not able to pay the mortgage or rent on time? No [facility] Start: 11-17-2018 Gender identity Identifies as female gender (finding) [facility] Start: 11-17-2018 Sexual orientation Choose not to disclose [facility] Start: 01-15-2020 End: 02-14-2020 Exposure to SARS-CoV-2 (event) Not sure [facility] NEGATED: Highlighted row - Current every day smoker [facility] Work Phone: Goals Date Patient Goal Desired Activity /State Functional Status Date Assessment Result Facility NEGATED: Highlighted row Functional performance Functional status health issues are not documented Disease [facility] Work Phone: Mental Status Date Assessment Result Facility NEGATED: Highlighted row Cognitive function [Interpretation] Cognitive status health issues are not documented Disease [facility] Work Phone: Clinical Notes 06-05-2012 to 06-21-2023 Note Date & Type Note Facility 06-21-2023 Evaluation note Encounter Date Diagnosis Assessment Notes Jun, Post-nasal drainage (ICD-10 - R09.82) [facility] Other [id number] NotePatient here for 1 mo follow up loop implant. Says she stopped [...] cough. All other systems reviewed and are negative.[facility] 06-20-2023 NoteUT Cardiology Consult Note Reason for visit: Palpitations, AT 06/20/23: [...] prior to visit. ROS: (more content not included)...[facility]11-30-2023 Evaluation note* Encounter Date Diagnosis Assessment Notes Treatment Notes Treatment Clinical Notes May, Mass of right side of neck (ICD-10 - R22.1) Pt agrees to US and further assessment of this area that intermittently enlarges. May, Chronic cough (ICD-10 - R05.3) Agrees to inhaler and steroids to relieve wheezing May, Chronic sinusitis of both maxillary sinuses (ICD-10 - J32.0) Imaging and consider ENT referral if needed. [facility] Other 11-22-2023 NotePatient Outreach (INTMMN) MARLY JAFFE ([id number]) 1955 F Date Time Provider Department 05/25/23 [...] for screening mammogram for breast cancer [Z12.31] Order(s):[facility] SCREENING [[id number]] Order #: [id number] FUTURE Prescriptions as of 05/30/2023 - travoprost [...] at bedtime as needed. - MV with Oys-Qobyznln-Terrmz (CENTRUM SILVER) 0.4-300-250 mg-mcg-mcg tab Take 1 [...] (DM) [Z83.3] Postmenopausal atrophic vaginitis [N95.2] Dyspareunia [GZG8856] 11/04/2017 Tobacco user [Z72.0] 05/03/2013 Symptomatic menopausal or female climacteric st* Screening breast examination [Z12.39] 03/30/2011 08/02/2011 Constipation [K59.00] Abnormal mammogram [R92.8] 08/02/2011 11/04/2017 Elevated BP [TAY6603] 08/02/2011 Chest pain [R07.9] 09/17/2011 05/03/2013 Tobacco dependency [F17.200] 09/17/2011 Family history of early CAD [Z82.49] 09/17/2011 Syncope [R55] 09/17/2011 Postmenopausal HRT (hormone replacement therapy*06/05/2012 Screening breast examination [Z12.39] 06/05/2012 05/03/2013 Elevated IOP [H40.059] 05/03/2013 Multiple thyroid nodules [E04.2] 05/03/2013 Family history of colon cancer [Z80.0] 03/28/2017 Smoker [F17.200] 05/03/2017 Bilateral wrist pain [M25.531, M25.532] 07/14/2017 Encounter Status:Closed by TOBIAS PRODUSER on 05/30/23[facility] 05-19-2023 NoteLOOP IMPLANT PROCEDURE NOTE DATE OF PROCEDURE: 05/19/23 PERFORMING PHYSICIAN: Dr. Kieran Petersen LOAD CHECKER: LIZ INDICATIONS FOR PROCEDURE: 1. SVT/AF surveillance [...] the sternum on the left using the Netotiate tool. The loop recorder was then injected [...] wet the incision. Kieran Petersen MD Cardiac Electrophysiology.[facility]11-16-2023 Evaluation note* Encounter Date Diagnosis Assessment Notes Treatment Notes Treatment Clinical Notes May, Allergic rhinitis, unspecified seasonality, unspecified trigger (ICD-10 - J30.9) [facility] Other 10-24-2023 NoteUT Cardiology Consult Note Reason [...] affect Orientation: oriented to (more content not included)...[facility]08-16-2023 NoteUT Cardiology Consult Note Reason for visit: [...] GERD (gastroesophageal reflux disease) SVT (supraventricular tachycardia) ([facility]/HCC) PSH: Past Surgical History: Procedure Laterality Date [...] Carotid Arteries: bilateral n (more content not included)...[facility]07-12-2023 NoteUT Cardiology Consult Note Reason for visit: [...] GERD (gastroesophageal reflux disease) SVT (supraventricular tachycardia) ([facility]/HCC) PSH: Past Surgical History: Procedure Laterality Date [...] Constitutional General Appearance: well-no (more content not included)...[facility]07-12-2023 NotePatient is here today for a 1 month follow up Review of Systems Cardiovascular: Positive for chest pain, irregular heartbeat and palpitations. All other systems reviewed and are negative.[facility] 12-14-2022 NoteCardiovascular Medicine [facility] SUBJECTIVE Chief Complaint Patient presents with Palpitations [...] (gastroesophageal reflux disease) SVT (supraventricular tachycardia) (CMS/HCC) Family History Problem Relation Name Age of [...] Movements: Extraocular movements (more content not included)... [facility]06-13-2023 NotePatient here today c/o palpitations. Says when [...] palpitations. All other systems reviewed and are negative.[facility] 10-21-2022 NoteCONSULTATION CONSULTATION DATE: 10/21/2022 TO: Jameel [...] our patients to inform us about any uhie-smz-edjynbi medications or herbal remedies/nutritional supplements/alternative remedies. 2. [...] treatment options with their primary care provider.[facility] [id number] Evaluation note * Encounter Date Diagnosis Assessment Notes Treatment Notes Treatment Clinical Notes Sep, Constipation (ICD-10 - K59.00) Sep, Diverticulosis (ICD-10 - K57.90) Sep, Hemorrhoids (ICD-10 - K64.9) Sep, Other Repeat colonoscopy in 5 yrs [facility] Other [facility] NoteReview of Systems Cardiovascular: Positive for irregular heartbeat and palpitations. Negative for chest pain, claudication, cyanosis, dyspnea on exertion, leg swelling, near-syncope, orthopnea, paroxysmal nocturnal dyspnea and syncope.[facility]12-27-2022 NoteUT Cardiology Consult Note Reason for visit: [...] visit (from the past (more content not included)...[facility]12-14-2022 NotePatient Outreach (INTMMN) MARLY JAFFE ([id number]) 1955 F Date Time Provider Department 06/16/22 [...] 09/07/2005 Date Reviewed: 10/20/2020 Reviewed by: Jojo BairesOd) Lupillo - Fully Assessed Visit Diagnosis:Encounter for screening mammogram for breast cancer [Z12.31] Order(s):[facility] SCREENING [[id number]] Order #: [id number] FUTURE Prescriptions as of 06/21/2022 - omeprazole [...] at bedtime as needed. - MV with Kmr-Fsihccfl-Subfpk (CENTRUM SILVER) 0.4-300-250 mg-mcg-mcg tab Take 1 [...] (DM) [Z83.3] Postmenopausal atrophic vaginitis [N95.2] Dyspareunia [GFN0739] 11/04/2017 Tobacco user [Z72.0] 05/03/2013 Symptomatic menopausal or female climacteric st* Screening breast examination [Z12.39] 03/30/2011 08/02/2011 Constipation [K59.00] Abnormal mammogram [R92.8] 08/02/2011 11/04/2017 Elevated BP [VNW1649] 08/02/2011 Chest pain [R07.9] 09/17/2011 05/03/2013 Tobacco dependency [F17.200] 09/17/2011 Family history of early CAD [Z82.49] 09/17/2011 Syncope [R55] 09/17/2011 Postmenopausal HRT (hormone replacement therapy*06/05/2012 Screening breast examination [Z12.39] 06/05/2012 05/03/2013 Elevated IOP [H40.059] 05/03/2013 Multiple thyroid nodules [E04.2] 05/03/2013 Family history of colon cancer [Z80.0] 03/28/2017 Smoker [F17.200] 05/03/2017 Bilateral wrist pain [M25.531, M25.532] 07/14/2017 Encounter Status:Closed by [employer]OUZ[employer] on 06/21/22[facility] 05-07-2022 Miscellaneous Notes* Telephone Encounter - Judy Patel MA - 05/07/2022 7:21 AM EDT Pharmacy escribed requesting the following refill. Requested Prescriptions Pending Prescriptions Disp Refills omeprazole (PRILOSEC) 20 mg capsule [Pharmacy Med Name: OMEPRAZOLE DR 20 MG CAPSULE] 90 capsule 1 Sig: TAKE 1 CAPSULE BY MOUTH EVERY DAY Patient last appointment: 08/13/2020 Patient Phone numbers: [phone] (home) Request is for script(s) to be escript to pharmacy. Judy Patel MA [facility] NoteCONSULTATION CONSULTATION DATE: 02/10/2022 This is [...] changes in the weather. 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 She denies any [...] time and the patient is in agreement.[facility] [id number] NoteCONSULTATION CONSULTATION DATE: 11/26/2021 HISTORY OF PRESENT [...] Patient agrees with the plan of care. [facility] Signed and Approved by: SWEETIE ROBERTS . 12/03/2021 16:05:00[facility]08-13-2020 History of Present illness Narrative* Gail Ferrari), RN - 02/14/2020 10:00 AM EDT Radiology [...] 2020 TIME: 9:41 AM documented in this encounter[facility] History of Past illness Narrative* Problem Noted Date Resolved Date Screening breast examination 06/05/2012 Chest pain 09/17/2011 05/03/2013 Abnormal mammogram 08/02/2011 11/04/2017 Screening breast examination 03/30/2011 Colon cancer screening 03/03/2009 2 Degeneration of lumbar or lumbosacral interverte bral disc 01/24/2009 10/22/2013 Dyspareunia 11/04/2017 Tobacco user 05/03/2013 documented as of this encounter (statuses as of 02/01/2022) [facility]12-03-2012 History of Past illness Narrative* Problem Noted Date Resolved Date Screening breast examination 06/05/2012 Chest pain 09/17/2011 05/03/2013 Abnormal mammogram 08/02/2011 11/04/2017 Screening breast examination 03/30/2011 Colon cancer screening 03/03/2009 2 Degeneration of lumbar or lumbosacral interverte bral disc 01/24/2009 10/22/2013 Dyspareunia 11/04/2017 Tobacco user 05/03/2013 documented as of this encounter (statuses as of 05/07/2022) [facility]12-03-2012 History of Past illness Narrative* Problem Noted Date Resolved Date Screening breast examination 06/05/2012 Chest pain 09/17/2011 05/03/2013 Abnormal mammogram 08/02/2011 11/04/2017 Screening breast examination 03/30/2011 Colon cancer screening 03/03/2009 2 Degeneration of lumbar or lumbosacral interverte bral disc 01/24/2009 10/22/2013 Dyspareunia 11/04/2017 Tobacco user 05/03/2013 documented as of this encounter (statuses as of 06/21/2022) [facility]12-[facility] History of Past illness Narrative* Problem Noted Date Diagnosed Date Resolved Date Screening breast examination 06/05/2012 05/03/2013 Chest pain 09/17/2011 05/03/2013 Abnormal mammogram 08/02/2011 8 Screening breast examination 03/30/2011 08/02/2011 Colon cancer screening 03/03/200908/02 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 01/24/2009 10/22/2013 Dyspareunia 11/04/2017 Tobacco user 05/03/2013 documented as of this encounter (statuses as of 05/08/2023) [facility] note* Diagnosis Encounter for screening mammogram for breast cancer documented in this encounter [facility] note* Diagnosis Onset Date Resolution Status Encounter for screening colonoscopy [facility] Work Phone: Evaluation note* Diagnosis Chronic mixed headache syndrome Other headache syndromes documented in this encounter [facility] noteNo [facility] [place] [address] Other Hospital Discharge instructions Additional Instructions DISCHARGE [...] kiwi fruit Repeat colonoscopy in 5 years Edai 1 p.o. every morning -Notify the doctor if you have any problems. -Office number [phone]: Instructions* Name Dates Details Instructions not documented -[facility] Work Phone: Reason for referral (narrative)* Diagnostic Procedure Only (Routine) - Pending Review Specialty Diagnoses / Procedures Referred By Zaid gutiérrez Referred To Contact [facility] Diagnoses Encounter for screening mammogram for breast cancer Procedures DOLORES SCREENING SCREENING MAMMOGRAPHY BI 2-VIEW [place] Jy[place]ía [place] [address] [place] [address] [facility] [address] [place] [address] Referral ID Status Reason Start Date Expiration Date Visits Requested Visits Authorized [id number] Pending Review Auto-Generat ed [facility]erral 2 07/16/2023 [facility] Diagnostic Procedure Only (Routine) - Closed Specialty Diagnoses / Procedures Referred By Zaid gutiérrez Referred To Contact [facility] Diagnoses Chronic mixed headache syndrome G44.89 (ICD-10-CM) - Chronic mixed headache syndrome Procedures MRI BRAIN WO/W IVCON MRI BRAIN COMBO MRI BRAIN WO/[place] Jyoti García [place] [address] [place] [address] [place] [address] Referral ID Status Reason Start Date Expiration Date V isits Requested Visits Authorized [id number] Closed Auto-Generate d Referral 02/11/2020 07/03/2020 1 1 [facility] Summary Purpose Family History Relationship Condition Age at Onset Recorded Date/T bishop brother Malignant neoplasm of colon Unknown sister Malignant neoplasm of bone Unknown sister Malignant neoplasm of pancreas Unknown Advance Directives Documents on File Type Date Recorded Patient Air And Water Filler Expl anation Advance Directive(s) 10/31/2018 9:16 AM Advance Directive(s) 12/04/2012 9:42 PM Advance Directive(s) 11/29/2012 9:09 PM Documents on File Type Date Recorded Patient Air And Water Filler Expl anation Advance Directive(s) 12/04/2012 9:42 PM Advance Directive(s) 11/29/2012 9:09 PM Documents on File Type Date Recorded Patient Air And Water Filler Expl anation Advance Directive(s) 12/04/2012 9:42 PM Advance Directive(s) 11/29/2012 9:09 PM Advance Directive Response Recorded Date/ Time Advance Directives No July 28, 2022 2:19pm Chief Complaint and Reason for Visit Chief Complaint Constipation, Hx Col on Polyps, Fam Hx Colon Ca Reason for Visit Encounter for screen ing colonoscopy Reason for Referral Reason *FU 06/30 Dr. Callahan is in [place] Diagnosis 1 Post-nasal drainage (R09.82) Referral Organization [facility] C kaylah Referring Provider First Name Estelle Referring Provider Last Name Michele Referring Provider Specialty Family [facility] Referred Organization [facility] Referred Provider Lacey Villalta Referred Address ,[place], [place],[address] Referred Provider Specialty Ear, Nose an d Throat Referral Priority Routine General Notes Inessa Vitale 02:51:01 PM >received today, notes locked, ins attached, referral faxed Additional Source Comments INFORMATION SOURCE (unrecogn ized section and content) DATE CREATED AUTHOR 11/12/2018 [facility] DATE CREATED AUTHOR AUTHOR'S ORGANIZ ATION 06/18/2019 [facility] DATE CREATED AUTHOR AUTHOR'S ORGANIZ ATION 05/01/2020 [facility] DATE CREATED AUTHOR AUTHOR'S ORGANIZ ATION 08/01/2022 [facility] DATE CREATED AUTHOR AUTHOR'S ORGANIZ ATION 10/26/2022 [facility] DATE CREATED AUTHOR AUTHOR'S ORGANIZ ATION 05/30/2023 [facility] DATE CREATED AUTHOR AUTHOR'S ORGANIZ ATION 06/21/2023 [facility] Source Comments (unrecognize d section and content) In the event this informatio n is protected by the Federal Confidentiality of Alcohol and Drug Abuse Patient Records regulations: The Federal rules restrict any use of the information to criminally investigate or prosecute any alcohol or drug abuse patient.[facility] the event this information is protected by the Federal Confidentiality of Alcohol and Drug Abuse Patient Records regulations: The Federal rules restrict any use of the information to criminally investigate or prosecute any alcohol or drug abuse patient.[facility] the event this information is protected by the Federal Confidentiality of Alcohol and Drug Abuse Patient Records regulations: The Federal rules restrict any use of the information to criminally investigate or prosecute any alcohol or drug abuse patient.[facility] Hospital[facility] the event this information is protected by the Federal Confidentiality of Alcohol and Drug Abuse Patient Records regulations: The Federal rules restrict any use of the information to criminally investigate or prosecute any alcohol or drug abuse patient.[facility] Reason for Visit (unrecogniz ed section and content) message Reason Comments Refill Request Reason Comments Radiology MRI Specialty Diagnoses / Procedures Referred By Contac t Referred To Contact [facility] Diagnoses Chronic mixed headache syndrome G44.89 (ICD-10-CM) - Chronic mixed headache syndrome Procedures MRI BRAIN WO/W IVCON MRI BRAIN COMBO MRI BRAIN WO/[place] Jyoti García [place] [address] [place] [address] [place] [address] Referral ID Status Reason Start Date Expiration Date V isits Requested Visits Authorized [id number] Closed Auto-Generate d Referral 02/11/2020 07/03/2020 1 1 Care Teams (unrecognized sec tion and content) [employer] Relationship Specialty Start [place] Jyoti García [place] [address] [place] [address] PCP - General Internal Medicine 09/11/19 [employer] Relationship Specialty Start [place] Jy[place]ía [place] [address] [place] [address] PCP - General Internal Medicine 09/11/19 [employer] Relationship Specialty Start [place]ía [place] [address] [place] [address] PCP - General Internal Medicine 09/11/19 Team Status: Inactive Member Role Status Dates Enrrique Grant MD Attending Provider Active Jameel Manzanares MD Primary Care Provider Active Team Status: Active Member Role Status Dates Jameel Manzanares MD Primary Care Provider Active [employer] Relationship Specialty Start [place] J[place]ía [place] [address] [place] [address] PCP - General Internal Medicine 09/11/19 FOR [...] BE BASED ON THE PRIMARY CLINICAL RECORDS. [employer] [facility]. provides no warranty or guarantee of the accuracy or completeness of information in this document.
--- NOTE | 2023-06-30 14:07 | P.CN_ITS ---
Consult Note: HPI Data of Consult Requesting Physician: Janet Ramirez NP Primary Care Provider: Estelle Bautista MD Consult Narrative Reason for consult: f/u Narrative: Ann Marie Mccain a pleasant 68 year old female presents for evaluation and management of whole body pain. Today pain in 4/10 in neck, shoulders, mid back, low back. Describes as a constant hurt. No fevers, chills, numbness/tingling, weakness. Patient experienced tachycardia and SOB with robaxin/mobic/celebrex. Finding great benefit to PT and aquatherapy, was extremely active before today's appointment and feels this is related to her increase in pain. cc:: CC: Janet Ramirez NP Review of Systems ROS Status of ROS 10 or more systems reviewed and unremark able except as noted in history and below Musculoskeletal Reports: back pain and neck pain Meds Home Medications and Allergies Home Medications Medication Instructions Recorded Confirmed Type lidocaine 5 % topical ointment 1 applic topical TID #50 grams 04/14/23 Rx Exam Constitutional Documenting provider has reviewed patient's vital signs: yes Common normals: no apparent distress, oriented x3, healthy appearing, alert and well nourished General appearance: cooperative HENMT Common normals: normocephalic, hearing grossly normal bilaterally and moist oral mucous membranes Head and scalp: normocephalic Eye Common normals: PERRL Pupil: PERRL Neck & C-Spine Common normals: full ROM General: normal visual inspection Cervical spine: pain with cervical ROM Chest Common normals: inspection of chest normal Respiratory Common normals: normal respiratory effort, no retractions and no use of acce ssory muscles Back & Pelvis Thoracic spine/upper back: ROM limited and pain with ROM Lumbar spine/lower back: ROM limited, pain with ROM and paraspinal muscle tenderness Other: positive facet loading Extremity Common normals: normal to inspection and full ROM Neuro Common normals: oriented x3, CN's II-XII intact bilaterally, moves all extremities, no focal motor deficits, no sensory deficits noted, deep tendon reflexes 2+ bilaterally and gait normal Sensorium/orientation: alert Motor exam: strength 5/5 throughout and no movement abnormalities noted Psych Common normals: mental status grossly normal, thought process normal, cooperative, affect normal, speech normal and activity/motor behavior normal Speech: normal speech Thought process: normal thought process Assessment and Plan Assessment and Plan (1) Chronic prescription benzodiazepine use: (2) Osteoarthritis: (3) Lumbar spondylosis: (4) Muscle spasm: (5) Thoracic spondylosis: Plan NNCP due to benzo use continue tylenol use PRN continue PT/aquatherapy consider bilateral L3-4 L4-5 facet medial branch block x2 working towards thermal RFA in the future f/u as needed
== END 2023-06-30 13:45 | disposition home or self-care (01) ==
LOC: PM 13:44
PROVIDERS: PCP Family Medicine; Visit Provider Nurse Practitioner
DX: Z79.891 Long term (current) use of opiate analgesic (principal); M19.90 Unspecified osteoarthritis, unspecified site; M47.816 Spondylosis without myelopathy or radiculopathy, lumbar region; M62.838 Other muscle spasm; M47.814 Spondylosis without myelopathy or radiculopathy, thoracic region
CPT/HCPCS: G0463

== ENCOUNTER 2023-07-05 13:04 | Outpatient (OUT) | payer MEDICARE, SELFPAY ==
--- OUTSIDE RECORDS SUMMARY | 2023-07-05 13:09 | XMS_ITS | CCD ---
Author Name Unknown Address [address] [place] [address] Organization [facility] Care Team Providers Care 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 Name Role Phone ERWIN DYE Attending Unavailable Abbass, Rami Unavailable Unavailable Unknown, Referring Provider Unavailable Unav ailable Abbkayce, Rami Unavailable Unavailable Chaya PAUL, Rami Unavailable Unavailable Unknown, Referring Provider Unavailable Unav ailable Raquel PAUL, Jyoti Lugo Primary Care Provider [phone] Raquel PAUL, Jyoti Lugo Primary Care Provider Jyoti García MD Primary Care Provider MD Enrrique Grant Attending Provider MD Jameel Manzanares Primary Care Provider [phone] Enrrique Grant Attending UnavailEnrrique Contreras Admitting Unavailabl [...] Ellis Primary Care Unavailable WAYNE ., DR ANTONLELA Lugo Attending Unavailable WAYNE ., DR ANTONELLA [...] Prochlorperazine (1 source) Prochlorperazine Drug Allergy [facility] Work Phone: Sulfonamides (antibiotic) (1 source) Sulfonamides (Antibiotic) Drug Allergy [facility] Work Phone: (5 sources) Hydroxychloroquine; 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: [HYDROXYCHLOROQUINE SULFATE] Drug Allergy Rash [facility] Repository (8 sources) Sulfonamides (Antibiotic); 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: [SULFA (SULFONAMIDE ANTIBIOTICS)] Propensity to adverse reactions to drug (disorder) Unknown Reaction [facility] Repository (6 sources) AMOXICILLIN-POT CLAVULANATE; 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: [AMOXICILLIN-POT CLAVULANATE] Propensity to adverse reactions to drug (disorder) 019 Rash [facility] Repository (5 sources) PROCHLORPERAZINE EDISYLATE; 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: [PROCHLORPERAZINE EDISYLATE] Propensity to adverse reactions to drug (disorder) 006 [facility] Repository (4 sources) Sulfonamides (Antibiotic) drug allergy [facility] Work Phone: (1 source) drug allergy [facility] Work Phone: (12 sources) Prochlorperazine; 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: [Compazine] Drug Allergy Unknown [facility] Repository (6 sources) Prochlorperazine; 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: [PROCHLORPERAZINE] Drug Allergy 006 Other: See Comments [facility] (5 sources) traMADol; 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: [TRAMADOL] Drug Allergy 019 Intolerance, GI Upset [facility] (1 source) Prochlorperazine Drug Allergy 023 [facility] Repository (8 sources) Sulfacetamide / Sulfur Drug Allergy Unknown [facility] Other (1 source) Sulfonamides (Antibiotic) Drug allergy (disorder) [facility] Repository (1 source) Hydroxychloroquine; 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: [HYDROXYCHLOROQUINE ] Drug Allergy 006 [facility] Repository Medications Current Medications Medication Drug Class(es) Dates Sig (Normalized) Sig (Original) [id number] 60 actuat albuterol 0.09 mg/actuat metered dose [...] 12:00am Start: 03-28-2017 take 1 capsule by [facility] once daily Cholecalciferol, Vitamin D3, 2,000 [...] sources) Start: 07-29-2022 take 1 tablet by [facility] once daily Magnesium Active 1 TAB PO [...] TAB PO Daily July 29, 2022 12:00am [place] 3 (8 sources) [place] 3 Active [place]-3 Fatty Acids (1 source) Start : 07-29 take 1000 mg by mouth once daily [place]-3 Fatty Acids Active 1000 MG PO Daily [...] on above: TAKE 1 CAPSULE BY [facility] EVERY DAY travoprost (12 sources) [...] Comment on above: Take 1 capsule by [facility] once daily. Vitamin B Complex (1 source) [...] Comment on above: Take 1 tablet by [facility] twice daily as needed for Muscle Spasm. [...] on above: Take 1 capsule by [facility] daily at bedtime for 30 days. ibuprofen/diphenhy [...] as needed. Take 1 capsule by [facility] once daily. MV with Vsu-Adzzpdtq-Pdjfco (CENTRUM SILVER) 0.4-300-250 mg-mcg-mcg tab (1 source) Start: 07-07-19 take 1 tablet by mouth once daily MV with Lmo-Zdmnrzse-Zjacil (CENTRUM SILVER) 0.4-300-250 mg-mcg-mcg tab Take 1 [...] on above: Take 1 capsule by [facility] daily at bedtime. 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; 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: [OTH HALF-WAY CURRENT DRUG THERAPY] Onset: 2 Episodic Other [...] neoplasm of other organs or systems; 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: [[facility] HX SIVA NEOPLASM OTH ORGN/SYS] Onset: 2 Episodic Residual codes; unclassified (1 source) Family history of malignant neoplasm of trachea, bronchus and lung; 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: [[facility] HX SIVA NEOPLSM TRACH BRON LNG] Onset: 2 Episodic Residual codes; unclassified (1 source) Family history of malignant neoplasm of digestive organs; 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: [[facility] HX SIVA NEOPLASM DIGESTIV ORGN] Onset: [...] [facility] Facility Office Visiton 06-20-2023 Follow-up visit [id number] Marly Jaffe 1955 F Date Provider Department [place] 06/20/2023 JOSE CASTILL[facility] Family History Problem Relation Age of Onset Stroke Mother Hypertension Mother Cancer Mother Stroke Father Other Father Family Status - Relation Status Age at Mother Father Level of Service:83267 ND OFFICE/OUTPATIENT ESTABLISHED MOD MDM 30 MIN Normal [facility] HPon 05-19-2023 HP H&P reviewed. The patient was examined and there are no changes to the H&P. Normal [facility] HP H&P reviewed. The patient was examined and there are no changes to the H&P. Normal [facility] NURSNOTEon 05-19-[address] Petersen for pt to discharge at this time. [place] [facility] RN educated pt on d/c instructions. RN encouraged pt to voice any questions or concerns. Pt verbalizes no questions or concerns at this time. Pt was wheeled off of unit with all of belongings. [place] HP 04-26-2023 [facility] Cardiology Consult Note Reason for [...] oriented to (more content not included)... Normal [facility] Office Visiton 04-26-2023 Follow-up visit [id number] Marly Jaffe 1955 Provider Department Center 04/26/2023 241-KIERAN PETERSEN SUSANA [facility] Family History Problem Relation Age of Onset Stroke Mother Hypertension Mother Cancer Mother Stroke Father Other Father Family Status - Relation Status Age at Mother Father Level of Service:30653 ND OFFICE/OUTPATIENT ESTABLISHED HIGH MDM 40-54 MIN Normal [facility] Office Visiton 02-16-2023 Follow-up visit [id number] Marly Jaffe 1955 Provider Department Center 02/16/2023 Abraham-JOSE VILLALOBOS Family History Problem Relation Age of Onset Stroke Mother Hypertension Mother Cancer Mother Stroke Father Other Father Family Status - Relation Status Age at Mother Father Level of Service:78644 ND OFFICE/OUTPATIENT ESTABLISHED MOD MDM 30-39 MIN Normal [facility] Office Visiton 01-12-2023 Follow-up visit [id number] Marly Jaffe 1955 Date Provider Department Center 01/12/2023 JOSE CASTILLO SUSANA Hoffman Family History Problem Relation Age of Onset Stroke Mother Hypertension Mother Cancer Mother Stroke Father Other Father Family Status - Relation Status Age at Mother Father Level of Service:11398 ND OFFICE/OUTPATIENT ESTABLISHED MOD [facility] 30-39 MIN Reason for Visit and Comments: Follow-up [193133] - 1 month follow up Normal [facility] Office Visiton 12-14-2022 Follow-up visit [id number] Marly Jaffe 1955 Date Provider Department Center 12/14/2022 SeanMargaretteKAYY VASQUEZ SUSANA [facility] Family History Problem Relation Age of Onset Stroke Mother Hypertension Mother Cancer Mother Stroke Father Other Father Family Status - Relation Status Age at Mother Father Level of Service:78202 ND OFFICE/OUTPATIENT ESTABLISHED MOD [facility] 30-39 MIN Reason for Visit and Comments: Palpitations [358754] Normal [facility] CT LUNG CANCER SCREENINGon 0 08-04-2022 CT [...] ÁNGEL PUGH Date: 2022-08-04 14:41 Normal [facility] XR RIBS BIL_PA CH 4V OR GRon [...] ÁNGEL PUGH Date: 2022-08-04 14:45 Normal [facility] XR TSPINE MIN 4 VIEWSon XR TSPINE [...] by: ÁNGEL PUGH Date: 2022-08-04 14:42 Normal [facility] [place] 07-29-2022 L Specimen: [id number] Received: 07/29/22 Status: HUY Dinah Num: [id number] Spec Type: Surgical Subm Dr: Enrrique Grant MD Tissues: A Colon Biopsy (POLYP SIGMOID) Procedures: HE/Deborah, Gross/Micro L4 Age/ Patient Sex Location Account Attending Physician Marly Jaffe 67/F [id number] Enrrique Grant MD SPEC NUM: [id number] RECD: 07/29/22 STATUS: HUY DINAH NUM: [id number] SALOMON: 07/29/22- [facility] DR: Enrrique Grant MD ENTERED: 07/29/22 [...] support the above pathologic diagnosis. CPT Codes 94783 Specimen: [id number] Received: 07/29/22 Status: HUY Dinah Num: [id number] Spec Type: Surgical Subm Dr: Enrrique Grant MD Tissues: A Colon Biopsy (POLYP SIGMOID) Procedures: HE/2, Gross/Micro L4 Patient: Marly Jaffe [id number] (Continued) Signed (signature on file) Benjamin Wolf MD 07/30/22 1133 [facility] ECHOCARDIO M/2D COMPLETEon 0 07-13-2022 ECHOCARDIO M/2D COMPLETE Patient: MARLY JAFFE Exam Date: 07/13/2022 : 1955 Gender:F Ordering : KIERAN Meng CHACKO Admission #: [id number] Family : Order #: [id number] CLICK HERE TO VIEW EXAM ECHOCARDIOGRAM REPORT [...] Mak M.D. on 07/15/2022 at 10:33 Normal [facility] Orders Onlyon 07-12-2022 Orders Only [id number] Marly Jaffe 1955 F Date Provider Department Center 07/12/2022 KYLE PALM [facility] No family history on file Normal [facility] Office Visiton 06-29-2022 Follow-up visit [id number] Marly Jaffe 1955 F Date Provider Department Center 06/29/2022 KIERAN FRIEDMAN [facility] No family history on file Level of Service:04080 ND OFFICE/OUTPATIENT NEW MODERATE MDM 45-59 MINUTES Reason for Visit and Comments: Palpitations [236141] - Pt states she has a rapid heart and due to the results of the heart monitor she was referred here. Normal [facility] MG MAMM SCREEN 3D LAWRENCE CADon 06-23-2022 MG MAMM SCREEN 3D LAWRENCE CAD Patient: MARLY JAFFE. Exam Date: 06/23/2022 : 1955 Gender:F Ordering : DR MERCY MORGAN . Admission #: [id number] Family : Order #: [id number] CLICK HERE TO VIEW EXAM RADIOLOGY REPORT [...] colon cancer at age 51. LOCATION: [facility] BREAST COMPOSITION: Scattered areas fibroglandular density. [...] Ángel Pugh M.D. on 06/23/2022 at 14:39 [facility] PAP ACOG PANEL 2: 30 to 65on 06-23-2022 . . Normal [facility] Comment on above: Performed By: #### 4 [id number] #### [facility] [address] [place] [address] Dr. Jeramy Dumont Age Gdln ACOG Testing Comment [facility] Comment on above: Result Comment: <21 or >65 or no age provided Performed By: #### 4 [id number] #### [facility] [address] [place] [address] Dr. Jeramy Dumont DIAGNOSIS: Comment [facility] Comment on above: Result Comment: NEGA TIVE FOR INTRAEPITHELIAL LESION OR MALIGNANCY. REACTIVE CELLULAR CHANGES AND/OR REPAIR ARE PRESENT. Performed By: #### 4 [id number] #### [facility] [address] [place] [address] Dr. Jeramy Dumont Electronically signed by: Comment [facility] Comment on above: Result Comment: Bere Aguilar MD, Pathologist Performed By: #### 4 [id number] #### [facility] [address] [place] [address] Dr. Jeramy Dumont Methodology: Comment [facility] Comment on above: Result Comment: This liquid based ThinPrep(R) pap test was screened with the use of an image guided system. Performed By: #### 4 [id number] #### [facility] [address] [place] [address] Dr. Jeramy Dumont Note: Comment [facility] Comment on above: Result Comment: The Pap smear is a screening test designed to aid in the detection of premalignant and malignant conditions of the uterine cervix. It is not a diagnostic procedure and should not be used as the sole means of detecting cervical cancer. Both false-positive and false-negative reports do occur. . Performed By: #### 4 [id number] #### [facility] [address] [address] [address] Jeramy Dumont Performed by: Comment Normal [facility] Comment on above: Result Comment: Norma Mancia Career Development Counselor (ASCP) Performed By: #### 4 [id number] #### [facility] [address] [address] [address] Jeramy Dumont Specimen adequacy: Comment Normal [facility] Comment on above: Result Comment: Sati sfactory for evaluation. Endocervical and/or squamous metaplastic cells (endocervical component) are present. Performed By: #### 4 [id number] #### [facility] [address] [place] [address] Dr. Jeramy Dumont XR DEXA BONE DENSITYon [...] by: ÁNGEL PUGH Date: 2022-06-23 11:46 Normal [facility] CBC AUTO DIFFon 04-27-2022 BASO # 0.1 103/ul Normal 0.0-0.1 [facility] Comment on above: Performed By: #### C BC ####[facility] [address] [address]Dr. Jeramy Dumont Basophils/100 WBC (Bld) 0.6 % Normal 0.2-2.0 [facility] Comment on above: Performed By: #### C BC ####[facility] [address] [address]Dr. Jeramy Dumont EO # 0.2 103/ul Normal 0.0-0.7 [facility] Comment on above: Performed By: #### C BC ####[facility] [address] [place], [place] [address]Dr. Jeramy Dumont Eosinophils/100 WBC (Bld) 1.9 % Normal 0.9-7.0 [facility] Comment on above: Performed By: #### C BC ####[facility] [address] [place], [place] [address]Dr. Jeramy Dumont Erythrocyte distribution width (RBC) [Ratio] 13.3 % Normal 11.0-15.0 [facility] Comment on above: Performed By: #### C BC ####[facility] [address] [place], [place] [address]Dr. Jeramy Dumont Hematocrit (Bld) [Volume fraction] 41.1 % Normal 36.0-48.0 [facility] Comment on above: Performed By: #### C BC ####[facility] [address] [place], [place] [address]Dr. Jeramy Dumont Hemoglobin (Bld) [Mass/Vol] 13.4 g/dL Normal 12.0-16.0 [facility] Comment on above: Performed By: #### C BC ####[facility] [address] [place], [place] [address]Dr. Jeramy Dumont IG # 0.02 10e3/ul Normal 0.00-0.03 [facility] Comment on above: Performed By: #### C BC ####[facility] [address] [place], [place] [address]Dr. Jeramy Dumont IG % 0.2 % Normal 0.0-0.5 [facility] Comment on above: Performed By: #### C BC ####[facility] [address] [place], [place] [address]Dr. Jeramy Dumont LYMPH # 3.2 103/ul Normal 1.2-3.8 [facility] Comment on above: Performed By: #### C BC ####[facility] [address] [address]Dr. Jeramy Tim Lymphocytes/100 WBC (Bld) 39.1 % Normal 20.5-60.0 [facility] Comment on above: Performed By: #### C BC ####[facility] [address] [address]Dr. Moniquelaura Dumont MANUAL DIFF REQ NO Normal [facility] Comment on above: Performed By: #### C BC ####[facility] [address] [address]Dr. Moniquelaura Dumont MCH (RBC) [Entitic mass] 30.7 pg Normal 26.7-34.0 [facility] Comment on above: Performed By: #### C BC ####[facility] [address] [place], [place] [address]Dr. Moniquelaura uDmont MCHC (RBC) [Mass/Vol] 32.6 g/dL Normal 29.9-35.2 [facility] Comment on above: Performed By: #### C BC ####[facility] [address] [place], [place] [address]Dr. Jeramy Dumont MCV (RBC) [Entitic vol] 94.3 fL Normal 81.0-99.0 [facility] Comment on above: Performed By: #### C BC ####[facility] [address] [place], [place] [address]Dr. Jeramy Dumont MONO # 0.6 103/ul Normal 0.3-0.8 [facility] Comment on above: Performed By: #### C BC ####[facility] [address] [place], [place] [address]Dr. Jeramy Dumont Monocytes/100 WBC (Bld) 6.6 % Normal 1.7-12.0 [facility] Comment on above: Performed By: #### C BC ####[facility] [address] [place], [place] [address]Dr. Jeramy Dumont NEUT # 4.3 103/ul Normal 1.4-6.5 [facility] Comment on above: Performed By: #### C BC ####[facility] [address] [address]Dr. Jeramy Dumont Neutrophils/100 WBC (Bld) 51.6 % Normal 43.0-75.0 [facility] Comment on above: Performed By: #### C BC ####[facility] [address] [address]Dr. Jeramy Dumont Platelet mean volume (Bld) [Entitic vol] 9.8 fL Normal 9.5-13.5 [facility] Comment on above: Performed By: #### C BC ####[facility] [address] [address]Dr. Jeramy Dumont PLT 283 103/ul Normal 150-450 [facility] Comment on above: Performed By: #### C BC ####[facility] [address] [address]Dr. Jeramy Dumont RBC 4.36 106/ul Normal 4.20-5.40 [facility] Comment on above: Performed By: #### C BC ####[facility] [address] [address]Dr. Jeramy Dumont WBC 8.3 103/ul Normal 4.0-11.0 [facility] Comment on above: Performed By: #### C BC ####[facility] [address] [address]Dr. Jeramy Dumont FREE T3on 04-27-2022 FREE T3 2.20 pg/mlL Normal 2.18-3.98 [facility] Comment on above: Performed By: #### F T3, TSH, BMP, LIVER ####[facility] [address] [address]Dr. Jeramy Dumont FREE T4on 04-27-2022 Free T4 [Mass/Vol] 0.96 ng/dL Normal 0.76-1.46 The [facility] Comment on above: Performed By: #### F T4 ####[facility] [address] [id number]. Jeramy Dumont LIVER PROFILEon 04-27-2022 Albumin [Mass/Vol] 3.7 g/dL Normal 3.4-5.0 [facility] Comment on above: Performed By: #### F T3, TSH, BMP, LIVER #### [facility] [address] [place] [address] Dr. Jeramy Dumont Albumin/Globulin [Mass ratio] 1.1 {ratio} Normal [facility] Comment on above: Performed By: #### F T3, TSH, BMP, LIVER #### [facility] [address] [place] [address] Dr. Jeramy Dumont ALP [Catalytic activity/Vol] 64 U/L Normal 46-116 [facility] Comment on above: Performed By: #### F T3, TSH, BMP, LIVER #### [facility] [address] [place] [address] Dr. Jeramy Dumont ALT [Catalytic activity/Vol] 28 U/L Normal 14-59 [facility] Comment on above: Performed By: #### F T3, TSH, BMP, LIVER #### [facility] [address] [place] [address] Dr. Jeramy Dumont AST [Catalytic activity/Vol] 16 U/L Normal 15-37 [facility] Comment on above: Performed By: #### F T3, TSH, BMP, LIVER #### [facility] [address] [place] [address] Dr. Jeramy Dumont BILI, CONJUGATED 0.1 mg/dL Normal 0.0-0.2 [facility] Comment on above: Performed By: #### F T3, TSH, BMP, LIVER #### [facility] [address] [place] [address] Dr. Jeramy Dumont Bilirubin [Mass/Vol] 0.2 mg/dL Normal 0.2-1.0 [facility] Comment on above: Performed By: #### F T3, TSH, BMP, LIVER #### [facility] [address] [place] [address] Dr. Jeramy Dumont Globulin (S) [Mass/Vol] 3.5 g/dL Normal T [facility] Comment on above: Performed By: #### F T3, TSH, BMP, LIVER #### [facility] [address] [place] [address] Dr. Jeramy Dumont Protein [Mass/Vol] 7.2 g/dL Normal 6.4-8.2 [facility] Comment on above: Performed By: #### F T3, TSH, BMP, LIVER #### [facility] [address] [address] [address] Jeramy Dumont PROF CHEM 8 (BAS METB)on Anion gap [Moles/Vol] 10.3 mmol/L Normal [facility] Comment on above: Performed By: #### F T3, TSH, BMP, LIVER #### [facility] [address] [address] [address] Jeramy Dumont Calcium [Mass/Vol] 9.0 mg/dL Normal 8.5-10.1 [facility] Comment on above: Performed By: #### F T3, TSH, BMP, LIVER #### [facility] [address] [place] [address] Dr. Jeramy Dumont Chloride [Moles/Vol] 105 mmol/L Normal 98-107 [facility] Comment on above: Performed By: #### F T3, TSH, BMP, LIVER #### [facility] [address] [address] [address] Jeramy Dumont CO2 [Moles/Vol] 30.7 mmol/L Normal 21.0-32.0 [facility] Comment on above: Performed By: #### F T3, TSH, BMP, LIVER #### [facility] [address] [address] [address] Jeramy Dumont Creatinine [Mass/Vol] 0.85 mg/dL Normal 0.55-1.02 [facility] Comment on above: Performed By: #### F T3, TSH, BMP, LIVER #### [facility] [address] [address] [address] Jeramy Dumont EGFR-AF FIJIAN >60 Normal >=60 [facility] Comment on above: Performed By: #### F T3, TSH, BMP, LIVER #### [facility] [address] [address] [address] Jeramy Dumont EGFR-NON AF FIJIAN >60 Normal >=60 [facility] Comment on above: Performed By: #### F T3, TSH, BMP, LIVER #### [facility] [address] [address] [address] Jeramy Dumont Glucose [Mass/Vol] 101 mg/dL Normal 74-106 [facility] Comment on above: Performed By: #### F T3, TSH, BMP, LIVER #### [facility] [address] [address] [address] Jeramy Dumont Potassium [Moles/Vol] 4.0 mmol/L Normal 3.5-5.1 [facility] Comment on above: Performed By: #### F T3, TSH, BMP, LIVER #### [facility] [address] [address] [address] Jeramy Dumont Sodium [Moles/Vol] 142 mmol/L Normal 136-145 [facility] Comment on above: Performed By: #### F T3, TSH, BMP, LIVER #### [facility] [address] [address] [address] Jeramy Dumont Urea nitrogen [Mass/Vol] 15.0 mg/dL Normal 7.0-18.0 [facility] Comment on above: Performed By: #### F T3, TSH, BMP, LIVER #### [facility] [address] [address] [address] Jeramy Dumont Urea nitrogen/Creatinine [Mass ratio] 17.6 mg/mg Normal [facility] Comment on above: Performed By: #### F T3, TSH, BMP, LIVER #### [facility] [address] [address] [address] Jeramy Dumont TSHon 04-27-2022 TSH 0.960 uIU/mL Normal 0.358-3.740 [facility] Comment on above: Performed By: #### F T3, TSH, BMP, LIVER ####[facility] [address] [address]Dr. Jeramy Dumont [facility] SARS-CoV-2 (COVID-19) RNA TRAVON+probe Ql (Unsp spec) Not detected Normal NOT DETECTED [facility] Comment on above: Result Comment: This test is not yet approved or cleared by the [place] FDA. When there are no FDA-approved or cleared tests available, and other criteria are met, FDA can make tests available under an emergency access mechanism called an Emergency Use Authorization (EUA). The EUA for this test is supported by the [place] of Health and Human Service's (HHS's) declaration [...] consistent with SARS-CoV-2. Performed By: #### [facility] ####[facility] [address] [place], [place] [address]Rh. Jeramy Dumont Established Visit (Gastroent erology)on 04-30-2020 Established Visit (Gastroenterology) Diagnoses/Problems Assessed Chronic idiopathic constipation (564.00) (K59.04) Esophageal reflux (530.81) (K21.9) Orders Chronic idiopathic constipation Start: Amitiza 8 MCG Oral Capsule; Take 1 capsule twice daily Rx By: Krzysztof Larkin; Dispense: 0 Days ; #:60 Capsule; Refill: 1;For: Chronic idiopathic constipation; ASHLYN = N; Verified Transmission to [id number]; Last Updated By: SingWho; 04/30/2020 1:37:03 PM Esophageal reflux Renew: Omeprazole 20 MG Oral Capsule Delayed Release; TAKE 1 CAPSULE DAILY Rx By: Krzysztof Larkin; Dispense: 0 Days ; #:90 Capsule; Refill: 1;For: Esophageal reflux; ASHLYN = N; Verified Transmission to [id number]; Last Updated By: SingWho; 04/30/2020 1:37:11 PM Patient Discussion/Summary Change omeprazole [...] Tablet Vitals Vital Signs Recorded: 30Apr2020 01:17PM Zjvcaubbxag34 F Height5 ft 3 in Erqplz474 lb BMI Rvoxemsylj55.74 BSA Calculated1.63 Physical Exam Constitutional General appearance: [...] Normal Touchworks MRI BRAIN WO/W IVCONon 02-13 [facility] C-Reactive Proteinon 019 CRP mass conc mg/L Normal 0.0-0.4 [facility] Comment on above: Performed By: #### C BCDIF, CRP #### [facility] [address] [place] [address] #### WSR #### [facility] [address] [place], [place] [address] CBC and Differentialon 10-31 Abs Baso 0.05 k/uL Normal <0.11 [facility] Comment on above: Performed By: #### C BCDIF, CRP #### [facility] [address] [place] [address] [address] [place] [address] #### WSR #### [facility] [address] [phone] Abs Hinds 0.49 k/uL Normal <0.87 [facility] Comment on above: Performed By: #### C BCDIF, CRP #### [address] [place] [address] #### WSR #### [facility] [address] [place] [phone] Abs Neut 6.28 k/uL Normal 1.45-7.50 [facility] Comment on above: Performed By: #### C BCDIF, CRP #### [address] [place] [address] #### WSR #### [address] [phone] Absolute nRBC <0.01 Normal <0.01 [facility] Comment on above: Performed By: #### C BCDIF, CRP #### [address] [place] [address] #### WSR #### [facility] [address] [phone] Basophils/100 WBC (Bld) 0.6 % Normal [facility] Comment on above: Performed By: #### C BCDIF, CRP #### [address] [place] [address] #### WSR #### [facility] [address] [phone] DTYPE Auto Diff Normal [facility] Comment on above: Performed By: #### C BCDIF, CRP #### [address] [place] [address] #### WSR #### [facility] [address] [place] [phone] Eosinophils #/vol (Bld) 0.08 10*3/uL Normal <0.46 [facility] Comment on above: Performed By: #### C BCDIF, CRP #### [address] [place] [address] #### WSR #### [address] [phone] Eosinophils/100 WBC (Bld) 0.9 % Normal [facility] Comment on above: Performed By: #### C BCDIF, CRP #### [address] [place] [address] #### WSR #### [address] [phone] Erythrocyte distribution width Ratio (RBC) 13.5 % Normal 11.5-15.0 [facility] Comment on above: Performed By: #### C BCDIF, CRP #### [address] [place] [address] #### WSR #### [address] [phone] Hematocrit Volume Fraction (Bld) 42.3 % Normal 36.0-46.0 [facility] Comment on above: Performed By: #### C BCDIF, CRP #### [address] [place] [address] #### WSR #### [facility] [address] [phone] Hemoglobin mass conc (Bld) 14.0 g/dL Normal 11.5-15.5 [facility] Comment on above: Performed By: #### C BCDIF, CRP #### [address] [place] [address] #### WSR #### [facility] [address] [address] Lymphocytes #/vol (Bld) 2.07 10*3/uL Normal 1.00-4.00 [facility] Comment on above: Performed By: #### C BCDIF, CRP #### [address] [place] [address] #### WSR #### [address] [place] [address] Lymphocytes/100 WBC (Bld) 23.1 % Normal [facility] Comment on above: Performed By: #### C BCDIF, CRP #### [address] [place] [address] #### WSR #### [address] [address] MCH Entitic mass (RBC) 31.1 pG Normal 26.0-34.0 [facility] Comment on above: Performed By: #### C BCDIF, CRP #### [address] [place] [address] #### WSR #### [id number] [place] [address] MCHC mass conc (RBC) 33.1 g/dL Normal 30.5-36.0 [facility] Comment on above: Performed By: #### C BCDIF, CRP #### [address] [facility] #### WSR #### [facility] [address] [phone] MCV Entitic volume (RBC) 94.0 fL Normal 80.0-100.0 [facility] Comment on above: Performed By: #### C BCDIF, CRP #### [address] [place] [address] #### WSR #### [facility] [address] [address] Monocytes/100 WBC (Bld) 5.5 % Normal [facility] Comment on above: Performed By: #### C BCDIF, CRP #### [address] [place] [address] #### WSR #### [facility] [address] [address] Neutrophils/100 WBC (Bld) 69.9 % Normal [facility] Comment on above: Performed By: #### C BCDIF, CRP #### [address] [place] [address] #### WSR #### [facility] [address] [address] NRBCs 0.0 /100 WBC Normal 0 [facility] Comment on above: Performed By: #### C BCDIF, CRP #### [address] [place] [address] #### WSR #### [facility] [address] [address] Platelet mean volume Entitic volume (Bld) 9.5 fL Normal 9.0-12.7 [facility] Comment on above: Performed By: #### C BCDIF, CRP #### [address] [facility] #### WSR #### [facility] [address] [address] Platelets #/vol (Bld) 279 10*3/uL Normal 150-400 [facility] Comment on above: Performed By: #### C BCDIF, CRP #### [facility] [address] [facility] [place] [address] #### WSR #### [facility] [address] [address] RBC #/vol (Bld) 4.50 10*6/uL Normal 3.90-5.20 [facility] Comment on above: Performed By: #### C BCDIF, CRP #### [address] [place] [address] #### WSR #### [facility] [address] [address] WBC #/vol (Bld) 8.97 10*3/uL Normal 3.70-11.00 [facility] Comment on above: Performed By: #### C BCDIF, CRP #### [address] [place] [address] #### WSR #### [facility] [address] [address] ED NOTEon 10-31-2018 ED NOTE HNO ID: [id number] Author: Erwin Dye MD Service: Emergency Medicine Author Type: Physician Type: ED Notes Filed: 11/03/2018 2:16 PM Note Text: Doing better, followed up with spine Normal [facility] ED NOTE HNO ID: [id number] Author: Vasquez (Rn) STEVE Winchester Service: ? [...] - notify physician of changes in condition [facility] ED NOTE HNO ID: [id number] Author: Lubna (Rn) STEVE Dumont Service: ? Author Type: Registered Nurse Type: ED Notes Filed: 10/31/2018 9:08 AM Note Text: Bed: ED-15 Expected date: Expected time: Means of arrival: Comments: [facility] ED PROV NOTEon 10-31-2018 Protein mass conc HNO ID: [id number] Author: Erwin Dye MD Service: Emergency Medicine [...] has TENS unit at home. Evaluated by event specialist earlier today who advised her to [...] MD Erwin Zarco MD 10/31/18 1421 Normal [facility] Sed Rate Westergrenon 2018 Sed Rate Westergren 8 mm/hr Normal 0-20 [facility] Comment on above: Performed By: #### C BCDIF, CRP #### [facility] [address] [place] [address] #### WSR #### [facility] [address] [place], [place] [address] Dermatopathologyon 9 Dermatopathology Pathologist: SETH BERNAL MD Date of Procedure: 09/12/2018 Date Received: 09/13/2018 Date Reported 09/14/2018 Submitting Physician: KEILY CRAIN MD Location: [facility] FINAL DIAGNOSIS SKIN, RIGHT CHRISTIANITY, EXCISION: CHANGES CONSISTENT WITH PREVIOUS PROCEDURE, PRESENT ON THE DEEP AND PERIPHERAL MARGIN WITHOUT RESIDUAL SQUAMOUS CELL CARCINOMA SEEN. Electronically Signed Out by SETH BERNAL M.D. Electronically Signed Out By SETH BERNAL MD/[facility] Microscopic Description: Microscopic examination reveals a specimen that extends into the subcutaneous fat. An area with horizontally oriented collagen and vertically oriented vessels is present. Clinical History: Invasive SCC. Re-excision (B). Specimens Submitted As: A: SKIN, RIGHT CHRISTIANITY Gross Description: Received in formalin is a craig piece of skin measuring 16 x 5 x 1 mm. Inked and embedded in toto in two blocks. z/09/13/2018 Normal [facility] Comment on above: Performed By: #### D #### Dermatopathology Dermatopathologyon 9 Dermatopathology Pathologist: SETH BERNAL MD Date of Procedure: 07/11/2018 Date Received: 07/12/2018 Date Reported 07/13/2018 Submitting Physician: KEILY CRAIN MD Location: [facility] FINAL DIAGNOSIS A. 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 B. SKIN, RIGHT CHRISTIANITY, BIOPSY: CONSISTENT WITH INVASIVE SQUAMOUS CELL CARCINOMA, WELL DIFFERENTIATED, PRESENT ON THE DEEP MARGIN, SEE NOTE. Note: Microscopic examination reveals a specimen that extends into the superficial dermis. There are areas of invagination of the epidermis with a slight downward bulbous growth pattern. There is mild to moderate solar elastosis. Electronically Signed Out by SETH BERNAL M.D. Electronically Signed Out By SETH BERNAL MD/[facility] Microscopic Description: A. 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 Clinical History: A: NAD. B: ISK vs. SCC. Specimens Submitted As: A: SKIN, RIGHT PHAM B: SKIN, RIGHT CHRISTIANITY Gross Description: A: Received in formalin is a craig-brown piece of skin measuring [id number]. The specimen is inked and embedded in toto. B: Received in formalin is a craig piece of skin measuring [id number]. The specimen is inked and embedded in toto. ink/07/12/2018 Normal [facility] Comment on above: Performed By: #### D #### Dermatopathology Vital Signs Date Time Vital Sign Value Performing Clinician Facility 06-02-2023 13:15-0500 Body height 160.02 cm Estelle Michele Other [facility] Other 06-02-2023 13:15-0500 Body mass index (BMI) [Ratio] 23.27 kg/m2 Estelledeng Bautista Other [facility] Other 06-02-2023 13:15-0500 Body temperature 96.9 [degF] Estelle Bautista Other [facility] Other 06-02-2023 13:15-0500 Body weight 59.6 kg Estelle Bautista Other [facility] Other 06-02-2023 13:15-0500 Diastolic blood pressure 79 mm[Hg] Estelle Bautista Other [facility] Other 06-02-2023 13:15-0500 SaO2% (BldA) [Mass fraction] 95 % Estelle Bautista Other [facility] Other 06-02-2023 13:15-0500 Systolic blood pressure 120 mm[Hg] Estelle Bautista Other [facility] Other 09-17-2022 11:00-0400 Body height 167.64 cm Enrrique Grant Other [facility] Other 09-17-2022 11:00-0400 Body mass index (BMI) [Ratio] 20.98 kg/m2 Enrrique Grant Other [facility] Other 09-17-2022 11:00-0400 Body weight 58.97 kg Enrrique Grant Other [facility] Other 09-17-2022 11:00-0400 Diastolic blood pressure 97 mm[Hg] Enrrique Grant Other [facility] Other 09-17-2022 11:00-0400 Systolic blood pressure 139 mm[Hg] Enrrique Grant Other [facility] Other 07-29-2022 12:11-0500 Diastolic blood pressure 84 mm[Hg] MD Jameel Manzanares Work Phone: [facility] 07-29-2022 12:11-0500 Heart rate 71 /min MD Jameel Manzanares Work Phone: [facility] 07-29-2022 12:11-0500 Respiratory rate 16 /min MD Jameel Manzanares Work Phone: [facility] 07-29-2022 12:11-0500 SaO2% (BldA) [Mass fraction] 96 % MD Jameel Manzanares Work Phone: [facility] 07-29-2022 12:11-0500 Systolic blood pressure 120 mm[Hg] MD Jameel Manzanares Work Phone: [facility] 07-29-2022 09:45-0500 Body height 160.02 cm MD Jameel Manzanares Work Phone: [facility] 07-29-2022 09:45-0500 Body temperature 98.4 [degF] MD Jameel Manzanares Work Phone: [facility] 07-29-2022 09:45-0500 Body weight 58.96 kg MD Jameel Manzanares Work Phone: [facility] Encounters Encounter Date Encounter Type Care Provider Facility Start: 06-21-2023 End: 06-21-2023 ambulatory Estelle Bautista Other [facility] Other Start: 06-21-2023 Telephone encounter Estelle Bautista [facility] Start: 06-20-2023 End: 06-20-2023 ambulatory [facility] Start: 06-20-2023 Telephone encounter Estelle Bautista [facility] Start: 06-17-2023 End: 06-17-2023 ambulatory Estelle Bautista Other [facility] Other Start: 06-17-2023 Telephone encounter Estelle Bautista [facility] Start: 06-06-2023 End: 06-06-2023 ambulatory Estelle Bautista Other [facility] Other Start: 06-06-2023 Telephone encounter Estelle Bautista [facility] Start: 06-02-2023 End: 06-02-2023 ambulatory Estelle Bautista Other [facility] Other Start: 06-02-2023 Office outpatient visit 25 minutes Estelle Bautista [facility] Start: 05-19-2023 Nursing evaluation o f patient and report Estelle Bautista [facility] Start: 05-19-2023 End: 05-19-2023 [facility] [email or web address] Other Start: 04-26-2023 End: 04-26-2023 ambulatory [facility] Start: 02-16-2023 End: 02-16-2023 ambulatory [facility] Start: 01-12-2023 End: 01-12-2023 ambulatory [facility] Start: 12-14-2022 End: 12-14-2022 ambulatory KAYY [facility] Start: 10-21-2022 End: 10-22-2022 ambulatory AAKASH DORANMIPATHY . Facility:[facility] Start: 09-17-2022 End: 09-17-2022 ambulatory Enrrique Grant Other [facility] Other Start: 09-17-2022 Office outpatient visit 15 minutes Enrrique Grant [facility] Gastroenterology Start: 08-04-2022 End: 08-05-[address] ÁNGEL PUGH Facility:[facility] Start: 07-29-2022 End: 07-29-2022 ambulatory Enrrique Grant Facility:[facility] Start: 07-29-2022 End: 07-29-2022 Admission to same day surgery center MD Jameel Manzanares Work Phone: [facility] Work Phone: Start: 07-29-2022 End: 07-29-2022 ambulatory MD Jameel Manzanares Work Phone: [facility] Work Phone: Start: 07-13-2022 End: 07-14-2022 ambulatory KIERAN PETERSEN Facility:[facility] Start: 06-29-2022 End: 06-29-2022 ambulatory KIERAN PETERSEN [facility] Start: 06-23-2022 End: 06-24-[address] MERCY MORGAN . Facility:[facility] Start: 06-16-2022 ambulatory Jyoti García MD Work Phone: [facility] [place] Start: 06-11-2022 End: 06-11-[address] MERCY [...] laboratory examination DR ANTONELLA WAYNE . [facility] Start: 10-27-2021 End: 10-27-[address] ANTONELLA WAYNE . Facility:[facility] Start: 10-26-2021 End: 10-27-2021 Encounter for preprocedural laboratory examination DR ANTONELLA WAYNE . Facility:[facility] Start: 10-26-2021 End: 10-27-[address] ANTONELLA WAYNE . Facility:[facility] Start: 04-30-2020 Patient encounter procedure Krzysztof Larkin [facility] dge Work Phone: Start: 02-14-2020 End: 02-14-2020 Subsequent hospital visit by physician Mri [facility] (I-Stat/1.5t) Radiology Comment on above: Chronic mixed headac he syndrome [G44.89] Start: 10-31-2018 End: 10-31-2018 Emergency department patient visit [facility] Start: 08-25-2018 Patient encounter procedure Krzysztof Larkin [facility] Work Phone: Start: 11-02-2017 Patient encounter procedure Krzysztof Larkin [facility] Work Phone: Start: 10-21-2017 Patient encounter procedure Krzysztof Larkin [facility] [facility] Work Phone: Procedures Date Procedure [...] panel - Serum or Plasma Lipid Screening [facility] Start: 09-11-2024 LIPID SCREEN LIPID SCREEN [facility] Start: 03-04-2023 Influenza vaccination Influenza Vacc ine (#1) [facility] Start: 09-11-2022 DIABETES [facility]CRE[facility] Start: 09-11-2022 Diabetes Screening Diabetes Screenin g [facility] Start: 07-29-2022 [facility] Start: 07-04-2022 Advance Directive Discussion Advance Directive Discussion [facility] Start: 07-04-2022 Colonoscopy COLONOSCOPY [facility] Start: 07-04-2022 COLORECTAL CANCER SCREENING COLORECTAL CANCER SCREENING [facility] Start: 07-04-2022 Depression Assessment Depression Ass essment [facility] Start: 03-04-2022 Influenza vaccination INFLUENZA (#1) [facility] Start: 08-13-2021 Adult depression screening assessment DEPRESSION SCREENING [facility] Start: 07-04-2021 ADVANCE DIRECTIVE DISCUSSION ADVANCE DIRECTIVE DISCUSSION [facility] Start: 07-04-2021 DEPRESSION ASSESS[address] [facility]ION [facility] Start: 03-30-2021 Urine microalbumin profile [facility] Start: 09-12-2019 Mammography [facility] Start: 2016 RSV Vaccine (1 - 1-d ose 60+ series) RSV Vaccine (1 - 1-dose 60+ series) [facility] Start: 05-23-2014 Pneumococcal Vaccine : 65+ (2 - PCV) Pneumococcal Vaccine: 65+ (2 - PCV) [facility] Start: 05-23-2014 PNEUMOCOCCAL: 65+ (2 - PCV) PNEUMOCOCCAL: 65+ (2 - PCV) [facility] Start: 11-30-2013 FECAL OCCULT BLOOD FECAL OCCULT BLOO D [facility] Start: 2006 SHINGRIX VACCINE (1 of 2) SHINGRIX VACCINE (1 of 2) [facility] Start: 2001 COLOGUARD (FIT-DNA) COLOGUARD (FIT-D NA) [facility] Start: [address] COLONOGRAPHY [facility] Start: 2001 SIGMOIDOSCOPY SIGMOIDOSCOPY [facility] Start: 1956 COVID-19 VACCINE (#1) COVID-19 VACCI NE (#1) [facility] End: 07-16-2023 DOLORES SCREENING DOLORES SCREENING Radiology Routine Encounter for screening mammogram for breast cancer 1 Occurrences starting 06/16/2022 until 07/16/2023 [facility] Work Phone: Comment on above: 1 Occurrences starti ng 06/16/2022 until 07/16/2023 Patient Education Hemorrhoids Co desean Polyps Diverticulosis (DC) [facility] Work Phone: Immunizations Immunization Date Immunization Notes Care Provider Cierra christian 05-19-2023 influenza, high dose seasonal, preservative-free Estelle Bautista Other [facility] Other 06-19-2020 influenza, injectabl e, quadrivalent, contains preservative Jojo Foster OD Work Phone: [facility] 06-19-2020 influenza virus vacc ine, unspecified formulation Mri (I-Stat/1.5t) [facility] 09-11-2019 influenza, injectabl e, quadrivalent, contains preservative Jojo Foster OD Work Phone: [facility] 09-11-2019 zoster vaccine, recombinant, adjuvanted, (SHINGRIX, PF,) 50 mcg/0.5 mL injection Mri (I-Stat/1.5t) [facility] Work Phone: Comment on above: Inject 0.5 mL intram uscularly now and repeat 2nd dose in 2-6 months 03-28-2017 influenza, injectabl e, quadrivalent, contains preservative Jojo Foster OD Work Phone: [facility] 08-12-2016 influenza, injectabl e, quadrivalent, preservative free Jojo Foster OD Work Phone: [facility] Work Phone: 04-14-2015 influenza, injectabl e, quadrivalent, preservative free Jojo Foster OD Work Phone: [facility] Work Phone: 05-23-2013 influenza virus vacc ine, unspecified formulation Jojo Foster OD Work Phone: [facility] 05-23-2013 pneumococcal polysaccharide vaccine, 23 valent Jojo Foster OD Work Phone: [facility] 04-13-2012 influenza virus vacc ine, unspecified formulation Jojo Foster OD Work Phone: [facility] 03-30-2011 tetanus toxoid, redu rukhsana diphtheria toxoid, and acellular pertussis vaccine, adsorbed Jojo Foster OD Work Phone: [facility] Payers Date Payer Category Payer Self-pay 2019 Unknown [employer]M [employer] C[employer] PPO OOS [id number] 2019-Present [phone] [facility] [id number] [place] [address] PPO [id number] 2019 Unknown ANTHMARY LOU BLUE CARD PPO OOS [id number] 2019-Present [phone] [address] [place] [address] PPO [id number] 1959 Private Health Insurance 101 [id number] 1956 Unknown [id number] 1956 Unknown [id number] 2.16.840.1.976174.3.579.2.5 1956 Unknown [id number] 2.16.840.1.678671.3.579.2.5 1956 Unknown [id number] 2.16.840.1.944451.3.579.2.5 93 1956 Unknown [id number] 2.16.840.1.155963.3.579.2.5 1956 Unknown [id number] 2.16.840.1.831900.3.579.2.5 1956 Unknown [id number] 2.16.840.1.350806.3.579.2.5 1956 Unknown [id number] 2.16.840.1.988361.3.579.2.5 1956 Unknown [id number] 2.16.840.1.281276.3.579.2.5 1956 Unknown [id number] 2.16.840.1.665473.3.579.2.5 1956 Unknown [id number] 2.16.840.1.699828.3.579.2.5 93 1956 Unknown [id number] 2.16.840.1.881591.3.579.2.5 93 1956 Unknown [id number] [id number] 93 Unknown [id number] [id number] 31 Social History Date Type Detail Facility Start[facility] 07[facility]04-[facility] Start: 07-04-1985 History of tobacco use Cigarette Smo ker [facility] Start: 01-29-2020 End: 10-20-2020 Alcohol intake Current drinker of alcohol (finding) [facility] Start: 01-18-2020 End: 02-28-2020 History SDOH Alcohol Frequency 2 [facility] Start: 01-18-2020 End: 02-28-2020 History SDOH Alcohol Std Drinks 1 [facility] Start: 07-25-2014 History SDOH Alcohol Comment 1 drink per year [facility] Start: 09-11-2019 End: 01-18-2020 History SDOH Social Connections Phone 3 [facility] Start: 01-18-2020 History SDOH Physica l Activity DPW 5 [facility] Start: 09-11-2019 Education 15 [facility] [facility] Start: 09-11-2019 Tobacco Comment current 0.5-1ppd [facility] Start: 1955 Sex Assigned At Female [facility] Start: 09-11-2019 End: 01-18-2020 Cigarettes smoked current (pack per day) - Reported 0.8 [facility] Start: 09-11-2019 Tobacco use and exposure Smoke less tobacco non-user [facility] Work Phone: Start: 07-29-2022 [facility] Start: 09-11-2019 End: 01-18-2020 Sex Assigned At [facility] Frequency of Communication with Friends and Family Not on file [facility] Do you belong to any clubs or organizations such as evangelical groups, unions, fraternal or athletic groups, or school groups? Yes [facility] How often to you hav e a drink containing alcohol? Monthly or less [facility] How many standard dr inks containing alcohol do you have on a typical day? 1 or 2 [facility] How often do you hav e 6 or more drinks on 1 occasion? Never [facility] Do you feel stress - tense, restless, nervous, or anxious, or unable to sleep at night because your mind is troubled all the time - these days [OSQ] Only a little [facility] (I/We) worried wheth er (my/our) food would run out before (I/we) got money to buy more. Never true [facility] In the past 12 month s, was there a time when you were not able to pay the mortgage or rent on time? No [facility] Start: 11-17-2018 Gender identity Identifies as female gender (finding) [facility] Start: 11-17-2018 Sexual orientation Choose not to disclose [facility] Start: 01-15-2020 End: 02-14-2020 Exposure to SARS-CoV-2 (event) Not sure [facility] NEGATED: Highlighted row - Current every day smoker [facility] [employer] Work Phone: Goals Date Patient Goal Desired Activity /State Functional Status Date Assessment Result Facility NEGATED: Highlighted row Functional performance Functional status health issues are not documented Disease [facility] [employer] [employer] Work Phone: Mental Status Date Assessment Result Facility NEGATED: Highlighted row Cognitive function [Interpretation] Cognitive status health issues are not documented Disease [facility] [employer] [employer] Work Phone: Clinical Notes 06-05-2012 to 06-21-2023 Note Date & Type Note Facility 06-21-2023 Evaluation note Encounter Date Diagnosis Assessment Notes Jun, Post-nasal drainage (ICD-10 - R09.82) [facility] Other [id number] NotePatient here for 1 mo follow up [...] cough. All other systems reviewed and are negative.[facility] 06-20-2023 NoteUT Cardiology Consult Note Reason for [...] prior to visit. ROS: (more content not included)...[facility]11-30-2023 Evaluation note* Encounter Date Diagnosis Assessment Notes [...] Imaging and consider ENT referral if needed. [facility] Other 11-22-2023 NotePatient Outreach (INTMMN) MARLY JAFFE ([id number]) 1955 F Date Time Provider Department 05/25/23 [...] for screening mammogram for breast cancer [Z12.31] Order(s):[facility] SCREEN[facility] [[id number]] Order #: [id number] FUTURE Prescriptions as of 05/30/2023 - travoprost [...] at bedtime as needed. - MV with Qau-Gshpjzbo-Litmjn (CENTRUM SILVER) 0.4-300-250 mg-mcg-mcg tab Take 1 [...] (DM) [Z83.3] Postmenopausal atrophic vaginitis [N95.2] Dyspareunia [UPW4177] 11/04/2017 Tobacco user [Z72.0] 05/03/2013 Symptomatic menopausal or female climacteric st* Screening breast examination [Z12.39] 03/30/2011 08/02/2011 Constipation [K59.00] Abnormal mammogram [R92.8] 08/02/2011 11/04/2017 Elevated BP [YXW5831] 08/02/2011 Chest pain [R07.9] 09/17/2011 05/03/2013 Tobacco dependency [F17.200] 09/17/2011 Family history of early CAD [Z82.49] 09/17/2011 Syncope [R55] 09/17/2011 Postmenopausal HRT (hormone replacement therapy*06/05/2012 Screening breast examination [Z12.39] 06/05/2012 05/03/2013 Elevated IOP [H40.059] 05/03/2013 Multiple thyroid nodules [E04.2] 05/03/2013 Family history of colon cancer [Z80.0] 03/28/2017 Smoker [F17.200] 05/03/2017 Bilateral wrist pain [M25.531, M25.532] 07/14/2017 Encounter Status:Closed by TOBIAS PRODUSER on 05/30/23[facility] 05-19-2023 NoteLOOP IMPLANT PROCEDURE NOTE DATE OF PROCEDURE: 05/19/23 PERFORMING PHYSICIAN: Dr. Kieran Petersen FALSEWORK BUILDER: LIZ INDICATIONS FOR PROCEDURE: 1. SVT/AF surveillance [...] the sternum on the left using the ARKeX tool. The loop recorder was then injected [...] wet the incision. Kieran Petersen MD Cardiac Electrophysiology.[facility]11-16-2023 Evaluation note* Encounter Date Diagnosis Assessment Notes Treatment Notes Treatment Clinical Notes May, Allergic rhinitis, unspecified seasonality, unspecified trigger (ICD-10 - J30.9) [facility] Other 10-24-2023 NoteUT Cardiology Consult Note Reason [...] affect Orientation: oriented to (more content not included)...[facility]08-16-2023 NoteUT Cardiology Consult Note Reason for visit: [...] GERD (gastroesophageal reflux disease) SVT (supraventricular tachycardia) ([facility]/HCC) PSH: Past Surgical History: Procedure Laterality Date [...] Carotid Arteries: bilateral n (more content not included)...[facility]07-12-2023 NoteUT Cardiology Consult Note Reason for visit: [...] GERD (gastroesophageal reflux disease) SVT (supraventricular tachycardia) ([facility]/HCC) PSH: Past Surgical History: Procedure Laterality Date [...] Constitutional General Appearance: well-no (more content not included)...[facility]07-12-2023 NotePatient is here today for a 1 month follow up Review of Systems Cardiovascular: Positive for chest pain, irregular heartbeat and palpitations. All other systems reviewed and are negative.[facility] 12-14-2022 NoteCardiovascular Medicine [facility] SUBJECTIVE Chief Complaint Patient presents with [...] Movements: Extraocular movements (more content not included)... [facility]06-13-2023 NotePatient here today c/o palpitations. Says when [...] palpitations. All other systems reviewed and are negative.[facility] 10-21-2022 NoteCONSULTATION CONSULTATION DATE: 10/21/2022 TO: Jameel [...] our patients to inform us about any btun-ejr-owznesy medications or herbal remedies/nutritional supplements/alternative remedies. 2. [...] treatment options with their primary care provider.[facility] [id number] Evaluation note * Encounter Date Diagnosis Assessment Notes Treatment Notes Treatment Clinical Notes Sep, Constipation (ICD-10 - K59.00) Sep, Diverticulosis (ICD-10 - K57.90) Sep, Hemorrhoids (ICD-10 - K64.9) Sep, Other Repeat colonoscopy in 5 yrs [facility] Other [facility] NoteReview of Systems Cardiovascular: Positive for irregular heartbeat and palpitations. Negative for chest pain, claudication, cyanosis, dyspnea on exertion, leg swelling, near-syncope, orthopnea, paroxysmal nocturnal dyspnea and syncope.[facility]12-27-2022 NoteUT Cardiology Consult Note Reason for visit: [...] visit (from the past (more content not included)...[facility]12-14-2022 NotePatient Outreach (INTMMN) MARLY JAFFE ([id number]) 1955 F Date Time Provider Department 06/16/22 [...] for screening mammogram for breast cancer [Z12.31] Order(s):[facility] SCREENING [[id number]] Order #: [id number] FUTURE Prescriptions as of 06/21/2022 - omeprazole [...] at bedtime as needed. - MV with Mmj-Tzhfwqyl-Jwdcrn (CENTRUM SILVER) 0.4-300-250 mg-mcg-mcg tab Take 1 [...] (DM) [Z83.3] Postmenopausal atrophic vaginitis [N95.2] Dyspareunia [KMZ8310] 11/04/2017 Tobacco user [Z72.0] 05/03/2013 Symptomatic menopausal or female climacteric st* Screening breast examination [Z12.39] 03/30/2011 08/02/2011 Constipation [K59.00] Abnormal mammogram [R92.8] 08/02/2011 11/04/2017 Elevated BP [UHM8280] 08/02/2011 Chest pain [R07.9] 09/17/2011 05/03/2013 Tobacco dependency [F17.200] 09/17/2011 Family history of early CAD [Z82.49] 09/17/2011 Syncope [R55] 09/17/2011 Postmenopausal HRT (hormone replacement therapy*06/05/2012 Screening breast examination [Z12.39] 06/05/2012 05/03/2013 Elevated IOP [H40.059] 05/03/2013 Multiple thyroid nodules [E04.2] 05/03/2013 Family history of colon cancer [Z80.0] 03/28/2017 Smoker [F17.200] 05/03/2017 Bilateral wrist pain [M25.531, M25.532] 07/14/2017 Encounter Status:Closed by Easy VoyageFOUZIA on 06/21/22[facility] 05-07-2022 Miscellaneous Notes* Telephone Encounter - Judy Patel MA - 05/07/2022 7:21 AM EDT Pharmacy escribed requesting the following refill. Requested Prescriptions Pending Prescriptions Disp Refills omeprazole (PRILOSEC) 20 mg capsule [Pharmacy Med Name: OMEPRAZOLE DR 20 MG CAPSULE] 90 capsule 1 Sig: TAKE 1 CAPSULE BY MOUTH EVERY DAY Patient last appointment: 08/13/2020 Patient Phone numbers: [phone] (home) Request is for script(s) to be escript to pharmacy. Judy Patel MA [facility]22 NoteCONSULTATION CONSULTATION DATE: 02/10/2022 This is a [...] changes in the weather. 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 She denies any [...] time and the patient is in agreement.[facility] [id number] NoteCONSULTATION CONSULTATION DATE: 11/26/2021 HISTORY OF PRESENT [...] Patient agrees with the plan of care. [facility] Signed and Approved by: SWEETIE ROBERTS . 12/03/2021 16:05:00[facility]08-13-2020 History of Present illness Narrative* Gail [...] 2020 TIME: 9:41 AM documented [facility] History of Past illness Narrative* Problem Noted Date Resolved Date Screening breast examination 06/05/2012 Chest pain 09/17/2011 05/03/2013 Abnormal mammogram 08/02/2011 11/04/2017 Screening breast examination 03/30/2011 Colon cancer screening 03/03/2009 2 Degeneration of lumbar or lumbosacral interverte bral disc 01/24/2009 10/22/2013 Dyspareunia 11/04/2017 Tobacco user 05/03/2013 documented as of this encounter (statuses as of 02/01/2022) [facility] History of Past illness Narrative* Problem Noted Date Resolved Date Screening breast examination 06/05/2012 Chest pain 09/17/2011 05/03/2013 Abnormal mammogram 08/02/2011 11/04/2017 Screening breast examination 03/30/2011 Colon cancer screening 03/03/2009 2 Degeneration of lumbar or lumbosacral interverte bral disc 01/24/2009 10/22/2013 Dyspareunia 11/04/2017 Tobacco user 05/03/2013 documented as of this encounter (statuses as of 05/07/2022) [facility] History of Past illness Narrative* Problem Noted Date Resolved Date Screening breast examination 06/05/2012 Chest pain 09/17/2011 05/03/2013 Abnormal mammogram 08/02/2011 11/04/2017 Screening breast examination 03/30/2011 Colon cancer screening 03/03/2009 2 Degeneration of lumbar or lumbosacral interverte bral disc 01/24/2009 10/22/2013 Dyspareunia 11/04/2017 Tobacco user 05/03/2013 documented as of this encounter (statuses as of 06/21/2022) [facility] History of Past illness Narrative* Problem Noted Date Diagnosed Date Resolved Date Screening breast examination 06/05/2012 05/03/2013 Chest pain 09/17/2011 05/03/2013 Abnormal mammogram 08/02/2011 8 Screening breast examination 03/30/2011 08/02/2011 Colon cancer screening 03/03/200908/02 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 01/24/2009 10/22/2013 Dyspareunia 11/04/2017 Tobacco user 05/03/2013 documented as of this encounter (statuses as of 05/08/2023) [facility] note* Diagnosis Encounter for screening mammogram for breast cancer documented in this encounter [facility] note* Diagnosis Onset Date Resolution Status Encounter for screening colonoscopy [facility] Work Phone: Evaluation note* Diagnosis Chronic mixed headache syndrome Other headache syndromes documented in this encounter [facility] noteNo [facility] [employer] Other Hospital Discharge instructions Additional Instructions DISCHARGE [...] kiwi fruit Repeat colonoscopy in 5 years [employer] 1 p.o. every morning -Notify the doctor if you have any problems. -Office number [phone] Work Phone: Instructions* Name Dates Details Instructions not documented -[facility] Work Phone: Reason for referral (narrative)* Diagnostic Procedure Only (Routine) - Pending Review Specialty Diagnoses / Procedures Referred By Zaid gutiérrez Referred To Contact [facility] Diagnoses Encounter for screening mammogram for breast cancer Procedures DOLORES SCREENING SCREENING MAMMOGRAPHY BI 2-VIEW BRE[place] Jyoti García [place] [address] [place] [address] [facility] [address] [place] [address] Referral ID Status Reason Start Date Expiration Date Visits Requested Visits Authorized [id number] Pending Review Auto-Generat ed Referral 2 07/16/2023 1 1 [facility] Diagnostic Procedure Only (Routine) - Closed Specialty Diagnoses / Procedures Referred By Zaid gutiérrez Referred To Contact MR IMAGING Diagnoses Chronic mixed headache syndrome G44.89 (ICD-10-CM) - Chronic mixed headache syndrome Procedures MRI BRAIN WO/W IVCON MRI BRAIN COMBO MRI BRAIN WO/[place] Jyoti García [place] [address] [place] [address] [place] [address] Referral ID Status Reason Start Date Expiration Date V isits Requested Visits Authorized [id number] Closed Auto-Generate d Referral 02/11/2020 07/03/2020 1 1 [facility] Summary Purpose Family History Relationship Condition Age at Onset Recorded Date/T bishop brother Malignant neoplasm of colon Unknown sister Malignant neoplasm of bone Unknown sister Malignant neoplasm of pancreas Unknown Advance Directives Documents on File Type Date Recorded 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 Advance Directive(s) 10/31/2018 9:16 AM Advance Directive(s) 12/04/2012 9:42 PM Advance Directive(s) 11/29/2012 9:09 PM Documents on File Type Date Recorded 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 Advance Directive(s) 12/04/2012 9:42 PM Advance Directive(s) 11/29/2012 9:09 PM Documents on File Type Date Recorded 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 Advance Directive(s) 12/04/2012 9:42 PM [...] Diagnosis 1 Post-nasal drainage (R09.82) Referral Organization [facility] C kaylah Referring Provider First Name Estelle Referring Provider Last Name Michele Referring Provider Specialty Family [place] Referred Organization [facility] Referred Provider Lacey Villalta Referred Address ,[place], [place],[address] Referred Provider Specialty Ear, Nose an d Throat Referral Priority Routine General Notes Inessa Vitale 02:51:01 PM >received today, notes locked, ins attached, referral faxed Additional Source Comments INFORMATION SOURCE (unrecogn ized section and content) DATE CREATED AUTHOR 11/12/2018 [facility] DATE CREATED AUTHOR AUTHOR'S ORGANIZ ATION 06/18/2019 [facility] DATE CREATED AUTHOR AUTHOR'S ORGANIZ ATION 05/01/2020 [employer] DATE CREATED AUTHOR AUTHOR'S ORGANIZ ATION 08/01/[address] [facility] DATE CREATED AUTHOR AUTHOR'S ORGANIZ ATION 10/26/2022 [facility] DATE CREATED AUTHOR AUTHOR'S ORGANIZ ATION 05/30/2023 [facility] DATE CREATED AUTHOR AUTHOR'S ORGANIZ ATION 06/21/2023 [facility] Source Comments (unrecognize d section and content) In the event this informatio n is protected by the Federal Confidentiality of Alcohol and Drug Abuse Patient Records regulations: The Federal rules restrict any use of the information to criminally investigate or prosecute any alcohol or drug abuse patient.[facility] the event this information is protected by the Federal Confidentiality of Alcohol and Drug Abuse Patient Records regulations: The Federal rules restrict any use of the information to criminally investigate or prosecute any alcohol or drug abuse patient.[facility] the event this information is protected by the Federal Confidentiality of Alcohol and Drug Abuse Patient Records regulations: The Federal rules restrict any use of the information to criminally investigate or prosecute any alcohol or drug abuse patient.[facility] the event this information is protected by the Federal Confidentiality of Alcohol and Drug Abuse Patient Records regulations: The Federal rules restrict any use of the information to criminally investigate or prosecute any alcohol or drug abuse patient.[facility] Reason for Visit (unrecogniz ed section and content) message Reason Comments Refill Request Reason Comments Radiology MRI Specialty Diagnoses / Procedures Referred By Contac t Referred To Contact MR IMAGING Diagnoses Chronic mixed headache syndrome G44.89 (ICD-10-CM) - Chronic mixed headache syndrome Procedures MRI BRAIN WO/W IVCON MRI BRAIN COMBO MRI BRAIN WO/[place] Jyoti García [place] [address] [place] [address] [place] [address] Referral ID Status Reason Start Date Expiration Date V isits Requested Visits Authorized [id number] Closed Auto-Generate d Referral 02/11/2020 07/03/2020 1 1 Care Teams (unrecognized sec tion and content) 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 [place] Jyoti García [place] [address] [place] [address] PCP - General Internal Medicine 09/11/19 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 Date [place] Jyoti [place]ía [place] [address] [place] [address] PCP - General Internal Medicine 09/11/19 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 [facility]. provides no warranty or guarantee of the accuracy or completeness of information in this document.
--- NOTE | 2023-07-05 13:30 | MM_ITS ---
Patient Name: MARLY JAFFE MR#: [id number] : 1955 Exam Date: 07/05/2023 Ordering Doctor: Non-Staff Physician RADIOLOGY REPORT PROCEDURE: MM TOMOSYNTHESIS SCREENING BI COMPARISON: MG MAMM DIAGNOSTIC 3D [place] CAD, 06/17/2021. MG MAMM SCREEN 3D [place] CAD, 06/23/2022. INDICATIONS: screening Calculator Name NCI Breast Cancer Risk Assessment Tool 5 Year Breast Cancer Risk 1.20% Lifetime Breast Cancer Risk 4.20% Personal Breast Cancer No Personal Ovarian Cancer No Treatments None Family Cancers Sister with liver cancer at age 66; Sister with lung cancer at age 52; Brother with colon cancer at age ~50. LOCATION: [facility] BREAST COMPOSITION: Scattered areas fibroglandular density. FINDINGS: DIAGNOSTIC CATEGORY 2--BENIGN FINDING. NO CHANGE FROM COMPARISON. Scattered benign-appearing nodules are present. Scattered benign-appearing calcifications are present. This exam includes additional mammographic views for implant evaluation and shows no visible implant abnormality. Scattered benign-appearing lymph nodes are present. RIGHT BREAST: No significant suspicious finding. LEFT BREAST: No significant suspicious finding. Loop recorder. RECOMMENDATIONS: ROUTINE MAMMOGRAM AND CLINICAL EVALUATION IN 12 MONTHS. PLEASE NOTE: A NORMAL MAMMOGRAM DOES NOT EXCLUDE THE POSSIBILITY OF BREAST CANCER. A CLINICALLY SUSPICIOUS PALPABLE LUMP SHOULD BE BIOPSIED. Dictated by: Mauro De La Torre MD on 07/05/2023 at 15:01 Approved by: Mauro De La Torre MD on 07/05/2023 at 15:03
== END 2023-07-05 13:05 | disposition home or self-care (01) ==
LOC: MAMMO 13:04
PROVIDERS: PCP Family Medicine
DX: Z12.31 Encounter for screening mammogram for malignant neoplasm of breast (principal); Z80.8 Family history of malignant neoplasm of other organs or systems; Z80.1 Family history of malignant neoplasm of trachea, bronchus and lung; Z80.0 Family history of malignant neoplasm of digestive organs
CPT/HCPCS: 77063; 77067

== ENCOUNTER 2023-10-12 09:59 | Outpatient (OUT) | payer MEDICARE, SELFPAY | END 2023-10-12 10:00 | disposition home or self-care (01) | LOC: LAB 10:02 | PROVIDERS: PCP Family Medicine; Visit Provider Family Medicine | DX: R30.0 Dysuria (principal) | CPT/HCPCS: 87086; 87150; 87186 ==

== ENCOUNTER 2024-01-19 11:05 | Outpatient (OUT) | payer MEDICARE, SELFPAY ==
[2024-01-19 11:22] LABS: Basophils Absolute Auto 0.1 10^3/uL (0.0-0.1); Basophils Percent Auto 1.1 % (0.2-2.0); Eosinophils Absolute Auto 0.1 10^3/uL (0.0-0.7); Eosinophils Percent Auto 1.6 % (0.9-7.0); Hematocrit 43.7 % (36.0-48.0); Hemoglobin 14.2 g/dL (12.0-16.0); Immature Granulocytes Abs Auto 0.02 10^3/uL (0.00-0.03); Immature Granulocytes Pct Auto 0.3 % (0.0-0.5); Lymphocytes Absolute Auto 3.2 10^3/uL (1.2-3.8); Lymphocytes Percent Auto 40.2 % (20.5-60.0); Mean Corpuscular HGB Conc 32.5 g/dL (29.9-35.2); Mean Corpuscular Hemoglobin 31.1 pg (26.7-34.0); Mean Corpuscular Volume 95.6 fL (81.0-99.0); Mean Platelet Volume 9.1 fL (9.5-13.5); Monocytes Absolute Auto 0.7 10^3/uL (0.3-0.8); Monocytes Percent Auto 8.8 % (1.7-12.0); Neutrophils Absolute Auto 3.8 10^3/uL (1.4-6.5); Platelet Count 276 10^3/uL (150-450); Red Blood Count 4.57 10^6/uL (4.20-5.40); Red Cell Distribution Width 13.9 % (11.0-15.0); White Blood Count 7.9 10^3/uL (4.0-11.0)
--- OUTSIDE RECORDS SUMMARY | 2024-01-19 11:30 | XMS_ITS | CCD ---
Author Organization [facility] Care Team Providers Care Hand Sander Name Role Phone ERWIN DYE Attending Unavailable Abbass, Rami Unavailable Unavailable Unknown, Referring Provider Unavailable Unav ailable Abbass, Rami Unavailable Unavailable Chaya PAUL, Rami Unavailable Unavailable Unknown, Referring Provider Unavailable Unav ailable Raquel PAUL, Jyoti Lugo Primary Care Provider Raquel PAUL, Jyoti Lugo Primary Care Provider Raquel PAUL, Jyoti Lugo Primary Care Provider [phone] MD Enrrique Grant Attending Provider MD Jameel Manzanares Primary Care Provider Enrrique Grant Attending Unavailabl Enrrique Brambila Admitting Unavailabl e Bryson, Jameel Primary Care Unavailable Enrrique Grant Unavailable ROSANA ., DR ANTONELLA Lugo Consulting Unavailable NADERER, DR JAMEEL Ellis Primary Care Unavailable WAYNE ., DR ANTONELLA Lugo Attending Unavailable WAYNE ., DR ANTONELLA Lugo Admitting Unavailable ZIEBER, DR ÁNGEL Verduzco Consulting Unavailable NADERER, DR JAMEEL Ellis Primary Care Unavailable NADERER, DR JAMEEL Ellis Attending Unavailable NADERER, DR JAMEEL Ellis Admitting Unavailable NADERER, DR JAMEEL Ellis Consulting Unavailable KIERAN PETERSEN Consulting Unavailable NADERER, DR JAMEEL Ellis Primary Care Unavailable KIERAN PETERSEN Attending Unavailable KIERAN PETERSEN Admitting Unavailable KARASIK ., DR MADRID Consulting Unavailabl e NADERER, DR JAMEEL Ellis Primary Care Unavailable KARASIK ., DR MADRID Attending Unavailabl e KARASIK ., DR MADRID Admitting Unavailabl e ZIEBER, DR ÁNGEL Verduzco Consulting Unavailable ROBERTS .SWEETIE [...] Unavailable MOSS, RAFAELA Consulting Unavailable LAKSHMIPATHY ., NARENDRANATH Consulting Amelia vailable NADERER, DR JAMEEL Ellis [...] Attending Unavailable WAYNE, DR FITZGERALD Admitting Unavailable Sharonda Calix Unavailable TIMMIS, SHAAN H Attending Unavailable SHARONDA CALIX Referring Unavailable Timmis, Shaan H Admitting Unavailable Timmis, Shaan H Attending Unavailable Timmis, Shaan H Referring Unavailable TIMMIS, SHAAN H Attending Unavailable JOSE VILLALOBOS Attending Unavailable KEVIN, KARLOS Referring Unavailable KEVIN, KARLOS Referring Unavailable KEVIN, KARLOS Referring Unavailable KEVIN, KARLOS Referring Unavailable KEVIN, KARLOS Referring Unavailable GUILLEKIERAN Rock Referring Unavailable KEVIN, KARLOS Referring Unavailable RUBI YOO Attending Unavailable JOSE VILLALOBOS Attending Unavailable KIERAN PETERSEN Attending Unavailable JOSE VILLALOBOS Attending Unavailable KIERAN PETERSEN Admitting Unavailable GUILLE, KIERAN Attending Unavailable Allergies Allergy Classification Reported Allergen(s) Allergy Type Date of Onset Reaction(s) Facility Prochlorperazine (1 source) Prochlorperazine Drug Allergy [facility] [employer] Work Phone: Sulfonamides (antibiotic) (1 source) Sulfonamides (Antibiotic) Drug Allergy [facility] [employer] Work Phone: (5 sources) Hydroxychloroquine; 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: [HYDROXYCHLOROQUINE SULFATE] Drug Allergy 006 Rash [facility] Repository (8 sources) Sulfonamides (Antibiotic); 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: [SULFA (SULFONAMIDE ANTIBIOTICS)] Propensity to adverse reactions to drug (disorder) Unknown Reaction [facility] Repository (6 sources) AMOXICILLIN-POT CLAVULANATE; 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: [AMOXICILLIN-POT CLAVULANATE] Propensity to adverse reactions to drug (disorder) 019 Rash [facility] Repository (5 sources) PROCHLORPERAZINE EDISYLATE; 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: [PROCHLORPERAZINE EDISYLATE] Propensity to adverse reactions to drug (disorder) 006 [facility] Repository (4 sources) Sulfonamides (Antibiotic) drug allergy [facility] [employer] Work Phone: (1 source) drug allergy [facility] [employer] Work Phone: (13 sources) Prochlorperazine; 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: [Compazine] Drug Allergy Unknown [facility] Repository (6 sources) Prochlorperazine; 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: [PROCHLORPERAZINE] Drug Allergy 006 Other: See Comments [facility] (5 sources) traMADol; 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: [TRAMADOL] Drug Allergy 019 Intolerance, GI Upset [facility] (1 source) Prochlorperazine Drug Allergy 023 [facility] Repository (9 sources) Sulfacetamide / Sulfur Drug Allergy Unknown [employer] Other (1 source) Sulfonamides (Antibiotic) Drug allergy (disorder) [facility] Rep[facility] (1 source) Hydroxychloroquine; 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: [HYDROXYCHLOROQUINE ] Drug Allergy 006 [facility] Repository Medications Current Medications Medication Drug Class(es) Dates Sig (Normalized) Sig (Original) [id number] 60 actuat albuterol 0.09 mg/actuat metered dose inhaler (11 sources) beta2-Adrenergic Agonist Start: 06-02-2023 take 2 puff(s) by inhalation every four hours as needed Albuterol Sulfate HFA 108 (90 Base) MCG/ACT 2 puff Inhalation every 4 hrs prn 30 May, 2023 Active Start: 06-02-2023 take 2 puff(s) by [...] Breath. alendronic acid 70 mg oral tablet (8 sources) Bisphosphonate Alendronate Sodi um 70 MG 1 tablet once a week Active ALPRAZolam 1 mg oral tablet (10 sources) Benzodiazepine Start: 08-15-19 take 1 tablet by mouth three times daily as needed ALPRAZolam 1 MG TAKE 1 TABLET BY MOUTH THREE TIMES A DAY NEEDED for 20 Aug, Active Start: 06-21-2023 take 1 tablet by mali th three times daily as needed Xanax 1 MG 1 tablet Orally three times a day prn for 30 days Jun, Active Start: 07-29-2022 take 1 mg by mouth once daily Alprazolam Active 1 MG PO Daily July 29, 2022 12:00am take 1 tablet by mali three times daily as needed Xanax 1 MG 1 tablet Orally three times a day prn Active amLODIPine 5 mg oral tablet (8 sources) Dihydropyridine Calcium Channel Mirian take 1 tablet by mouth every twenty-four hours amLODIPine Besylate 5 MG 1 tablet once a day Active amoxicillin 875 mg / clavulanate 125 mg oral tablet (8 sources) Penicillin-class Antibacterial Start: take 1 tablet by mouth every twelve hours Amoxicillin-Pot Clavulanate 875-125 MG 1 tablet Orally every 12 hrs for 10 day(s) Apr, Active ascorbic acid 1000 mg oral tablet (10 sources) Vitamin C Start: 023 take 1 g by mouth once daily Ascorbic Acid (Vitamin C) (Vitamin C) 1,000 mg Tablet Active 1 GM PO Daily July 29, 2022 12:00am Vitamin C Active aspirin 81 mg oral tablet (14 sources) Platelet Aggregation Inhibitor, Nonsteroidal Anti-inflammatory Drug [...] once daily. azithromycin 250 mg oral tablet (4 sources) Macrolide Antimicrobial Start: 06-17-20 Azithromycin 250 MG as directed Orally 2 tabs po today, then 1 tab daily x 4 more days for 5 Jun, Active B Complex (9 sources) B Complex Active baclofen 20 mg oral tablet (2 sources) gamma-Aminobutyric Acid-ergic Agonist Start: 07-29-19 take 20 mg by mouth once daily Baclofen Active 20 MG PO Daily July 29, 2022 12:00am bisacodyl 5 mg delayed release oral tablet (1 source) Stimulant Laxative Start: 07-29-19 take 1 tablet by mouth once daily at bedtime Bisacodyl (Dulcolax (Bisacodyl)) 5 mg Tablet,Delayed Release (Dr/Ec) Active 5 MG PO Daily at bedtime July 29, 2022 12:00am calcium carbonate 1250 mg oral tablet (2 sources) Start: 07-29-19 take 500 mg by mouth once daily [...] Start: 03-28-2017 take 1 capsule by [facility] once daily Cholecalciferol, Vitamin D3, 2,000 [...] Active fexofenadine hydrochloride 180 mg oral tablet (10 sources) Histamine-1 Receptor Antagonist Start: 07-29-2022 take 180 mg by mouth once daily Fexofenadine Active 180 MG PO Daily July 29, 2022 12:00am Giovanna Active ibuprofen 200 mg oral tablet (15 sources) Nonsteroidal Anti-inflammatory Drug Start: 07-29-2022 take 1 tablet by mouth once daily Ibuprofen (Advil) 200 mg Tablet Active 200 MG PO Daily July 29, 2022 12:00am Advil Active Advil TABS TAKE 2 TABLETSPO QHS Refills: 0 Active Advil TABS TAKE 2 TABLETSPO QHS Refills: 0 DO Active Magnesium (10 sources) Start: 07-29-2022 take 1 tablet by mali once daily Magnesium Active 1 TAB PO Daily July 29, 2022 12:00am Magnesium Active meloxicam 15 mg oral tablet (8 sources) Nonsteroidal Anti-inflammatory Drug take 1 tablet by mouth every twelve hours Meloxicam 15 MG 1 tablet bid Active methocarbamol 500 mg oral tablet (8 sources) Muscle Relaxant Methocarbamol 50 0 MG 1 tablet 2-3 times a day prn Active methylPREDNISolone 4 mg oral tablet (7 sources) Corticosteroid Start : 06-02 methylPREDNISolone 4 MG as directed Orally for 6 days May, Active 24 hr metoprolol succinate 25 mg extended release oral tablet (8 sources) beta-Adrenergic Mirian take 1 tablet by mouth every twenty-four hours Metoprolol Succinate ER 25 MG 1 tablet once a day Active montelukast 10 mg oral tablet (8 sources) Leukotriene Receptor Antagonist take 1 tablet by mouth every twenty-four hours Montelukast Sodium 10 MG 1 tablet once a day Active Multivitamin preparation (1 source) Start : 07-29 take 1 tablet by mouth once daily Multivitamin Active 1 TAB PO Daily July 29, 2022 12:00am Hope 3 (9 sources) Hope 3 Active Hope-3 Fatty Acids (1 source) Start : 07-29 take 1000 mg by mouth once daily Hope-3 Fatty Acids Active 1000 MG PO Daily July 29, 2022 12:00am omeprazole 20 mg delayed release oral tablet (20 sources) Proton Pump Inhibitor Start : 07-29 [...] on above: TAKE 1 CAPSULE BY [facility] EVERY DAY travoprost (13 sources) Prostaglandin Analog Start: take 1 drop(s) [...] 12:00am Start: 07-07-2020 take 1 capsule by [facility] once daily coenzyme Q10 (CO Q-10) 100 mg cap capsule Take 1 capsule by mouth once daily. 0 07/07/2020 Active Comment on above: Take 1 capsule by [facility] once daily. Vitamin B Complex (1 source) Start: 07-29-2022 take 1 tablet by mouth once daily Vitamin B Complex Active 1 TAB PO Daily July 29, 2022 12:00am Vitamin D3 (9 sources) Vitamin D3 Activ e Womens One Daily (9 sources) Womens One Daily Active Completed/Discontinued Medications [...] Comment on above: Take 1 tablet by [facility] twice daily as needed for Muscle Spasm. [...] propionate 0.05 mg/actuat metered dose nasal spray (13 sources) Corticosteroid Start: 06-08-20 18 Fluticasone Propionate [...] Comment on above: Take 1 capsule by [facility] daily at bedtime for 30 days. ibuprofen/diphenhy [...] on above: Take 1 tablet by mali at bedtime as needed. Take 1 capsule by [facility] once daily. MV with Ade-Qcavjjgc-Zbuwcx (CENTRUM SILVER) 0.4-300-250 mg-mcg-mcg tab (1 source) Start: 07-07-19 take 1 tablet by mouth once daily MV with Hph-Raosddky-Gvwcal (CENTRUM SILVER) 0.4-300-250 mg-mcg-mcg tab Take 1 tablet by mouth once daily. 30 tablet 3 07/07/2020 Active Comment on above: Take 1 tablet by mali once daily. nortriptyline 10 mg oral capsule (1 source) Tricyclic Antidepressant Start: 01-29-20 20 End: 05-16-20 20 take 1 capsule by mouth once daily at bedtime nortriptyline (PAMELOR) 10 mg capsule Take 1 capsule by mouth daily at bedtime. 30 capsule 5 01/29/2020 05/16/2020 Discontinued Comment on above: Take 1 capsule by [facility] daily at bedtime. triamcinolone acetonide 40 mg/ml injectable suspension (8 sources) Corticosteroid Start: 05-19-20 Kenalog-40 16 May, 2023 40 mg Womens [...] tachycardia; 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: [SUPRAVENTRICULAR TACHYCARDIA] Onset: 3 Chronic Diverticulosis and diverticulitis (10 sources) Diverticular disease of colon; 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: [Diverticulosis [...] 3 Episodic Other and unspecified benign neoplasm (9 sources) History of polyp of colon; 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: [...] [Chronic idiopathic constipation] Episodic Other gastrointestinal disorders (13 sources) Constipation; 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: [Constipation, unspecified] 03-30-2011 Episodic [...] lump, neck Episodic Other upper respiratory disease (12 sources) Allergic rhinitis; 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: [Allergic rhinitis, unspecified] Onset: 9 03-03-2009 Chronic Other upper respiratory disease (1 source) Allergic rhinitis, unspecified Chronic Other upper respiratory infections (8 sources) Chronic bilateral maxillary sinusitis; 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: [Chronic [...] Date Documented Da te Episodic/Chronic Cardiac dysrhythmias (7 sources) Palpitations; 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: [PALPITATIONS] Onset: 2 Episodic Immunizations and screening for infectious disease (1 source) Encounter for screening for human papillomavirus (HPV); 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: [ENC SCREENING HUMAN PAPILLOMAVIRUS] Onset: 2 Episodic Menopausal disorders (4 sources) Postmenopausal state; 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: [Hormone replacement therapy] Onset: 2 06-05-2012 Episodic Other aftercare (4 sources) Other prison (current) drug therapy; 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] Onset: 2 Episodic Other [...] or systems; 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: [FAM HX MALIG NEOPLASM OTH ORGN/SYS] Onset: 2 Episodic Residual [...] Value Interpretation Reference Range Facility Office Visiton 12-01-2023 Follow-up visit [id number] Marly Jaffe 1955 F Date Provider Department Center 12/01/2023 [id number] WHALEN [facility] Family History Problem Relation Age of Onset Stroke Mother Hypertension Mother Cancer Mother Stroke Father Other Father Family Status - Relation Status Age at Mother Father Level of Service:61216 [place] OFFICE/OUTPATIENT NEW LOW MDM 30 MINUTES Normal [facility] CT Maxillofacial w/o Contras ton 08-19-2023 CT Maxillofacial w/o Contrast Exam Date/Time: 08/18/2023 16:42 EST Reason for Exam: [id number] Report IMPRESSION: RIGHT MAXILLARY SINUSITIS. CT MAXILLOFACIAL WITHOUT INTRAVENOUS CONTRAST MEDIUM. History: Covid 19. Postnasal drip. Technical factors: CT axilla facial was obtained and matted as 1 mm contiguous axial images. Sagittal and coronal reconstruction obtained during postprocessing. Radiopaque cutaneous marker placed over right zygomatic maxillary junction. Comparison: None. Findings: Bilateral frontal, ethmoid, and sphenoid sinuses are patent. Mucosal thickening right maxillary sinus. Left maxillary sinus patent. Nasal septum midline. Ostiomeatal complexes patent bilaterally. Mastoid air cells well pneumatized bilaterally. No fracture. No bone lesion. Bilateral ocular globes, extraocular muscles, optic nerves, retrobulbar fat without anomaly. Imaged portions cerebral parenchyma and lateral ventricles grossly without anomaly. All CT scans at this facility use dose modulation, iterative reconstruction, and/or weight based dosing when appropriate to reduce radiation dose to as low as reasonably achievable. Ordering Provider: Shaan Villalta FINAL REPORT Dictated: 08/19/2023 10:24 am Ehsan Gordillo MD Signed (Electronic Signature): 08/19/2023 10:24 am Signed by: Ehsan Gordillo MD Transcribed by: CHRISTIAN Technologist: MARTELL Normal [facility] Consent for Treatmenton 08-04 Consent for Treatment [id number] #1.00TIFF Normal [facility] Physician Orderon 07-08-2023 Physician Order [id number] #1.00TIFF Normal [facility] Office Visiton 06-20-2023 Follow-up visit [id number] Marly Jaffe 1955 F Date Provider Department Center 06/20/2023 [facility] Family History Problem Relation Age of Onset Stroke Mother Hypertension Mother Cancer Mother Stroke Father Other Father Family Status - Relation Status Age at Mother Father Level of Service:94531 [place] OFFICE/OUTPATIENT ESTABLISHED MOD MDM 30 MIN [facility] HPon 05-19-2023 H&P reviewed. The patient was examined and there are no changes to the H&P. [facility] H&P reviewed. The patient was examined and there are no changes to the H&P. [facility] NURSNOTEon 05-19-[address] Petersen for pt to discharge at this time. [facility] MAXIMUS RN educated pt on d/c instructions. RN encouraged pt to voice any questions or concerns. Pt verbalizes no questions or concerns at this time. Pt was wheeled off of unit with all of belongings. [facility] 04-26-2023 [facility] Cardiology Consult Note Reason for visit: Palpitations, [...] [facility] [place] Office Visiton 04-26-2023 Follow-up visit [id number] Maryl Jaffe 1955 F Date Provider Department Center 04/26/2023 Carli-KIERAN PETERSEN SUSANA [facility] Family History Problem Relation Age of Onset Stroke Mother Hypertension Mother Cancer Mother Stroke Father Other Father Family Status - Relation Status Age at Mother Father Level of Service:75250 [place] OFFICE/OUTPATIENT ESTABLISHED HIGH MDM 40-54 MIN Normal [facility] Office Visiton 02-16-2023 Follow-up visit [id number] Marly Jaffe 1955 Date Provider Department Center 02/16/2023 AbrahamJOSE COBURN Lara Dalton Family History Problem Relation Age of Onset Stroke Mother Hypertension Mother Cancer Mother Stroke Father Other Father Family Status - Relation Status Age at Mother Father Level of Service:79921 [place] OFFICE/OUTPATIENT ESTABLISHED MOD MDM 30-39 MIN Normal [facility] Office Visiton 01-12-2023 Follow-up visit [id number] Marly Jaffe 1955 Provider Department Center 01/12/2023 GualbertoLeeJOSE COBURN Family History Problem Relation Age of Onset Stroke Mother Hypertension Mother Cancer Mother Stroke Father Other Father Family Status - Relation Status Age at Mother Father Level of Service:44988 [place] OFFICE/OUTPATIENT ESTABLISHED MOD MDM 30-39 MIN Reason for Visit and Comments: Follow-up [451864] - 1 month follow up Normal [facility] [...] by: ÁNGEL PUGH Date: 2022-08-04 14:41 Normal [facility] XR RIBS BIL_PA CH 4V OR [...] by: ÁNGEL PUGH Date: 2022-08-04 14:45 Normal [facility] XR TSPINE MIN 4 VIEWSon XR [...] by: ÁNGEL PUGH Date: 2022-08-04 14:42 Normal [facility] Desean 07-29-2022 L Specimen: [id number] Received: 07/29/22 Status: HUY Mejia Num: [id number] Spec Type: Surgical Subm Dr: Enrrique Grant MD Tissues: A Colon Biopsy (POLYP SIGMOID) Procedures: HE/2, Gross/Micro L4 Age/ Patient Sex Location Account Attending Physician Marly Jaffe 67/F [id number] Enrrique Grant MD SPEC NUM: [id number] RECD: 07/29/22 STATUS: HUY MEJIA NUM: [id number] SALOMON: 07/29/22- TORSTEN DR: Enrrique Grant MD ENTERED: 07/29/22 [facility] DR: SPEC TYPE: Surgical DEPT: S ORDERED: [...] support the above pathologic diagnosis. CPT Codes 20527 Specimen: [id number] Received: 07/29/22 Status: HUY Jackie Num: [id number] Spec Type: Surgical Subm Dr: Enrrique Grant MD Tissues: A Colon Biopsy (POLYP SIGMOID) Procedures: HE/2, Gross/Micro L4 Patient: Marly Jaffe [id number] (Continued) Signed (signature on file) Benjamin Wolf MD 07/30/22 1133 Normal [facility] ECHOCARDIO M/2D COMPLETEon 0 07-13-2022 ECHOCARDIO M/2D COMPLETE Patient: MARLY JAFFE Exam Date: 07/13/2022 : 1955 Gender:F Ordering : KIERAN ElvaTeddy PETERSEN Admission #: [id number] Family : Order #: [id number] CLICK HERE TO VIEW EXAM ECHOCARDIOGRAM REPORT [...] Mak M.D. on 07/15/2022 at 10:33 Normal [facility] MG MAMM SCREEN 3D LAWRENCE CADon 06-23-2022 MG MAMM SCREEN 3D LAWRENCE CAD Patient: MARLY JAFFE Exam Date: 06/23/2022 : 1955 Gender:F Ordering : DR MERCY MORGAN . Admission #: [id number] Family : Order #: [id number] CLICK HERE TO VIEW EXAM RADIOLOGY REPORT [...] colon cancer at age 51. LOCATION: [facility] BREAST COMPOSITION: Scattered areas fibroglandular density. FINDINGS: [...] Pugh M.D. on 06/23/2022 at 14:39 Normal [facility] PAP ACOG PANEL 2: 30 to 65on 06-23-2022 . . Normal [facility] Comment on above: Performed By: #### [id number] #### [facility] [address] [place] [address] Dr. Jeramy Dumont Age Gdln ACOG Testing Comment Normal [facility] Comment on above: Result Comment: <21 or >65 or no age provided Performed By: #### [id number] #### [facility] [address] [place] [address] Dr. Jeramy Dumont DIAGNOSIS: Comment [facility] Comment on above: Result Comment: NEGA TIVE FOR INTRAEPITHELIAL LESION OR MALIGNANCY. REACTIVE CELLULAR CHANGES AND/OR REPAIR ARE PRESENT. Performed By: #### [id number] #### [facility] [address] [place] [address] Dr. Jeramy Dumont Electronically signed by: Comment Normal [facility] Comment on above: Result Comment: Bere Aguilar MD, Pathologist Performed By: #### [id number] #### [place] [address] Dr. Jeramy Dumont Methodology: Comment [facility] Comment on above: Result Comment: This liquid based ThinPrep(R) pap test was screened with the use of an image guided system. Performed By: #### 4 [id number] #### [facility] [address] [place] [address] Dr. Jeramy Dumont Note: Comment [facility] Comment on above: Result Comment: The Pap smear is a screening test designed to aid in the detection of premalignant and malignant conditions of the uterine cervix. It is not a diagnostic procedure and should not be used as the sole means of detecting cervical cancer. Both false-positive and false-negative reports do occur. . Performed By: #### [id number] #### [facility] [address] [place] [address] Dr. Jeramy Dumont Performed by: Comment Normal [facility] Comment on above: Result Comment: Norma Mancia Accounts Receivable Manager (ASCP) Performed By: #### [id number] #### [facility] [address] [place] [address] Dr. Jeramy Dumont Specimen adequacy: Comment Normal [facility] Comment on above: Result Comment: Sati sfactory for evaluation. Endocervical and/or squamous metaplastic cells (endocervical component) are present. Performed By: #### 4 [id number] #### [facility] [address] [place] [address] [address] Jeramy Dumont XR DEXA BONE DENSITYon [...] ÁNGEL PUGH Date: 2022-06-23 11:46 Normal [facility] CBC AUTO DIFFon 04-27-2022 BASO # 0.1 103/ul Normal 0.0-0.1 [facility] Comment on above: Performed By: #### C BC ####[facility] [address] [place] [address]Dr. Jeramy Dumont Basophils/100 WBC (Bld) 0.6 % Normal 0.2-2.0 [facility] Comment on above: Performed By: #### C BC ####[facility] [address] [place] [address]DrTeddy Dumont EO # 0.2 103/ul Normal 0.0-0.7 [facility] Comment on above: Performed By: #### C BC ####[facility] [address] [place] [address]DrTeddy Dumont Eosinophils/100 WBC (Bld) 1.9 % Normal 0.9-7.0 [facility] Comment on above: Performed By: #### C BC ####[facility] [address] [place] [address]DrTeddy Dumont Erythrocyte distribution width (RBC) [Ratio] 13.3 % Normal 11.0-15.0 [facility] Comment on above: Performed By: #### C BC ####[facility] [address] [place] [address]Dr. Jeramy Dumont Hematocrit (Bld) [Volume fraction] 41.1 % Normal 36.0-48.0 [facility] Comment on above: Performed By: #### C BC ####[facility] [address] [place] [address]Dr. Jeramy Dumont Hemoglobin (Bld) [Mass/Vol] 13.4 g/dL Normal 12.0-16.0 [facility] Comment on above: Performed By: #### C BC ####[facility] [address] [place], [place] [address]Dr. Jeramy Tim IG # 0.02 10e3/ul Normal 0.00-0.03 [facility] Comment on above: Performed By: #### C BC ####[facility] [address] [place], [place] [address]Dr. Moniquelaura Dumont IG % 0.2 % Normal 0.0-0.5 [facility] Comment on above: Performed By: #### C BC ####[facility] [address] [place], [place] [address]Dr. Jeramy Tim LYMPH # 3.2 103/ul Normal 1.2-3.8 [facility] Comment on above: Performed By: #### C BC ####[facility] [address] [place], [place] [address]Dr. Moniquelaura Dumont Lymphocytes/100 WBC (Bld) 39.1 % Normal 20.5-60.0 [facility] Comment on above: Performed By: #### C BC ####[facility] [address] [place], [place] [address]Dr. Moniquelaura Dumont MANUAL DIFF REQ NO Normal [facility] Comment on above: Performed By: #### C BC ####[facility] [address] [place], [place] [address]Dr. Moniquelaura Dumont MCH (RBC) [Entitic mass] 30.7 pg Normal 26.7-34.0 [facility] Comment on above: Performed By: #### C BC ####[facility] [address] [place] [id number]. Jeramy Tim MCHC (RBC) [Mass/Vol] 32.6 g/dL Normal 29.9-35.2 [facility] Comment on above: Performed By: #### C BC ####[facility] [address] [place] [phone]. Jeramy Tim MCV (RBC) [Entitic vol] 94.3 fL Normal 81.0-99.0 [facility] Comment on above: Performed By: #### C BC ####[facility] [address] [place], [place] [address]Dr. Jeramy Tim MONO # 0.6 103/ul Normal 0.3-0.8 [facility] Comment on above: Performed By: #### C BC ####[facility] [address] [place], [place] [address]Dr. Jeramy Dumont Monocytes/100 WBC (Bld) 6.6 % Normal 1.7-12.0 [facility] Comment on above: Performed By: #### C BC ####[facility] [address] [place], [place] [address]Dr. Jeramy Dumont NEUT # 4.3 103/ul Normal 1.4-6.5 [facility] Comment on above: Performed By: #### C BC ####[facility] [address] [place], [place] [address]Dr. Jeramy Dumont Neutrophils/100 WBC (Bld) 51.6 % Normal 43.0-75.0 [facility] Comment on above: Performed By: #### C BC ####[facility] [address] [place], [place] [address]Dr. Jeramy Dumont Platelet mean volume (Bld) [Entitic vol] 9.8 fL Normal 9.5-13.5 [facility] Comment on above: Performed By: #### C BC ####[facility] [address] [place], [place] [address]Dr. Jeramy Dumont PLT 283 103/ul Normal 150-450 [facility] Comment on above: Performed By: #### C BC ####[facility] [address] [place] [id number]. Jeramy Dumont RBC 4.36 106/ul Normal 4.20-5.40 [facility] Comment on above: Performed By: #### C BC ####[facility] [address] [place] [id number]. Jeramy Dumont WBC 8.3 103/ul Normal 4.0-11.0 [facility] Comment on above: Performed By: #### C BC ####[facility] [address] [place] [phone]. Jeramy Dumont FREE T3on 04-27-2022 FREE T3 2.20 pg/mlL Normal 2.18-3.98 [facility] Comment on above: Performed By: #### F T3, TSH, BMP, LIVER ####[facility] [address] [place] [address]Dr. Jeramy Dumont FREE T4on 04-27-2022 Free T4 [Mass/Vol] 0.96 ng/dL Normal 0.76-1.46 [facility] Comment on above: Performed By: #### F T4 ####[facility] [address] [place] [address]Dr. Jeramy Dumont LIVER PROFILEon 04-27-2022 Albumin [Mass/Vol] 3.7 g/dL Normal 3.4-5.0 [facility] Comment on above: Performed By: #### F T3, TSH, BMP, LIVER #### [facility] [address] [place] [address] [address] Jeramy Dumont Albumin/Globulin [Mass ratio] 1.1 {ratio} Normal [facility] Comment on above: Performed By: #### F T3, TSH, BMP, LIVER #### [facility] [address] [place] [address] [address] Jeramy Dumont ALP [Catalytic activity/Vol] 64 U/L Normal 46-116 [facility] Comment on above: Performed By: #### F T3, TSH, BMP, LIVER #### [facility] [address] [place] [address] [address] Jeramy Dumont ALT [Catalytic activity/Vol] 28 U/L Normal 14-59 [facility] Comment on above: Performed By: #### F T3, TSH, BMP, LIVER #### [facility] [address] [place] [address] [address] Jeramy Dumont AST [Catalytic activity/Vol] 16 U/L Normal 15-37 [facility] Comment on above: Performed By: #### F T3, TSH, BMP, LIVER #### [facility] [address] [place] [address] Dr. Jeramy Dumont BILI, CONJUGATED 0.1 mg/dL Normal 0.0-0.2 [facility] Comment on above: Performed By: #### F T3, TSH, BMP, LIVER #### [facility] [address] [place] [address] Dr. Jeramy Dumont Bilirubin [Mass/Vol] 0.2 mg/dL Normal 0.2-1.0 [facility] Comment on above: Performed By: #### F T3, TSH, BMP, LIVER #### [facility] [address] [place] [address] Dr. Jeramy Dumont Globulin (S) [Mass/Vol] 3.5 g/dL Normal T [facility] Comment on above: Performed By: #### F T3, TSH, BMP, LIVER #### [facility] [address] [place] [address] Dr. Jeramy Dumont Protein [Mass/Vol] 7.2 g/dL Normal 6.4-8.2 [facility] Comment on above: Performed By: #### F T3, TSH, BMP, LIVER #### [facility] [address] [place] [address] Dr. Jeramy Dumont PROF CHEM 8 (BAS METB)on Anion gap [Moles/Vol] 10.3 mmol/L Normal [facility] Comment on above: Performed By: #### F T3, TSH, BMP, LIVER #### [facility] [address] [place] [address] Dr. Jeramy Dumont Calcium [Mass/Vol] 9.0 mg/dL Normal 8.5-10.1 [facility] Comment on above: Performed By: #### F T3, TSH, BMP, LIVER #### [facility] [address] [place] [address] [address] Jeramy Dumont Chloride [Moles/Vol] 105 mmol/L Normal 98-107 [facility] Comment on above: Performed By: #### F T3, TSH, BMP, LIVER #### [facility] [address] [address] [address] Jeramy Dumont CO2 [Moles/Vol] 30.7 mmol/L Normal 21.0-32.0 [facility] Comment on above: Performed By: #### F T3, TSH, BMP, LIVER #### [facility] [address] [place] [address] Dr. Jeramy Dumont Creatinine [Mass/Vol] 0.85 mg/dL Normal 0.55-1.02 [facility] Comment on above: Performed By: #### F T3, TSH, BMP, LIVER #### [facility] [address] [place] [address] Dr. Jeramy Dumont EGFR-AF RWANDAN >60 Normal >=60 [facility] Comment on above: Performed By: #### F T3, TSH, BMP, LIVER #### [facility] [address] [place] [address] Dr. Jeramy Dumont EGFR-NON AF RWANDAN >60 Normal >=60 [facility] Comment on above: Performed By: #### F T3, TSH, BMP, LIVER #### [facility] [address] [place] [address] [address] Jeramy Dumont Glucose [Mass/Vol] 101 mg/dL Normal 74-106 [facility] Comment on above: Performed By: #### F T3, TSH, BMP, LIVER #### [facility] [address] [place] [address] Dr. Jeramy Dumont Potassium [Moles/Vol] 4.0 mmol/L Normal 3.5-5.1 [facility] Comment on above: Performed By: #### F T3, TSH, BMP, LIVER #### [facility] [address] [place] [address] [address] Jeramy Dumont Sodium [Moles/Vol] 142 mmol/L Normal 136-145 [facility] Comment on above: Performed By: #### F T3, TSH, BMP, LIVER #### [facility] [address] [place] [address] [address] Jeramy Dumont Urea nitrogen [Mass/Vol] 15.0 mg/dL Normal 7.0-18.0 [facility] Comment on above: Performed By: #### F T3, TSH, BMP, LIVER #### [facility] [address] [place] [address] [address] Jeramy Dumont Urea nitrogen/Creatinine [Mass ratio] 17.6 mg/mg Normal [facility] Comment on above: Performed By: #### F T3, TSH, BMP, LIVER #### [facility] [address] [place] [address] [address] Jeramy Dumont TSHon 04-27-2022 TSH 0.960 uIU/mL Normal 0.358-3.740 [facility] Comment on above: Performed By: #### F T3, TSH, BMP, LIVER ####[facility] [address] [place] [id number]. Jeramy Dumont Covid-19 PCR ([facility]on 10-03 SARS-CoV-2 (COVID-19) RNA TRAVON+probe Ql (Unsp spec) Not detected Normal NOT DETECTED [facility] Comment on above: Result Comment: This test is not yet approved or cleared by the [place] FDA. When there are no FDA-approved or cleared tests available, and other criteria are met, FDA can make tests available under an emergency access mechanism called an Emergency Use Authorization (EUA). The EUA for this test is supported by the Julian of Health and Human Service's (HHS's) declaration [...] consistent with SARS-CoV-2. Performed By: #### C [facility] ####[facility] [address] [place], [place] [address]IhTeddy Dumont Established Visit (Gastroent erology)on 04-30-2020 Established Visit (Gastroenterology) Diagnoses/Problems Assessed Chronic idiopathic constipation (564.00) (K59.04) Esophageal reflux (530.81) (K21.9) Orders Chronic idiopathic constipation Start: Amitiza 8 MCG Oral Capsule; Take 1 capsule twice daily Rx By: Krzysztof Larkin; Dispense: 0 Days ; #:60 Capsule; Refill: 1;For: Chronic idiopathic constipation; ASHLYN = N; Verified Transmission to [facility]33[facility]; Last Updated By: [employer]; 04/30/2020 1:37:03 PM Esophageal reflux Renew: Omeprazole 20 MG Oral Capsule Delayed Release; TAKE 1 CAPSULE DAILY Rx By: Krzysztof Larkin; Dispense: 0 Days ; #:90 Capsule; Refill: 1;For: Esophageal reflux; ASHLYN = N; Verified Transmission to [facility] #3393; Last Updated By: [employer]; 04/30/2020 1:37:11 PM Patient Discussion/Summary Change omeprazole [...] Daily Oral Tablet Vitals Vital Signs Recorded: [id number] 01:17PM Gzpfgqjegup38 F Height5 ft 3 in Ojcuqh880 lb BMI Ocvzomodmn00.74 BSA Calculated1.63 Physical Exam Constitutional General appearance: [...] Normal Touchworks MRI BRAIN WO/W IVCONon 02-13 [facility] C-Reactive Proteinon 019 CRP mass conc mg/L Normal 0.0-0.4 [facility] Comment on above: Performed By: #### C BCDIF, CRP #### [address], [place] [address] #### WSR #### [facility] [address] [place] [phone] CBC and Differentialon 10-31 Abs Baso 0.05 k/uL Normal <0.11 [facility] Comment on above: Performed By: #### C BCDIF, CRP #### [address] [place] [address] #### WSR #### [facility] [address] [place] [phone] Abs Wheeler 0.49 k/uL Normal <0.87 [facility] Comment on above: Performed By: #### C BCDIF, CRP #### [place] [address] [facility], [place] [address] #### WSR #### [facility] [address] [place] [phone] Abs Neut 6.28 k/uL Normal 1.45-7.50 [facility] Comment on above: Performed By: #### C BCDIF, CRP #### [address] [place] [address] #### WSR #### [facility] [address] [place] [phone] Absolute nRBC <0.01 Normal <0.01 [facility] Comment on above: Performed By: #### C BCDIF, CRP #### [address] [place] [address] #### WSR #### [facility] [address] [place] [phone] Basophils/100 WBC (Bld) 0.6 % Normal [facility] Comment on above: Performed By: #### C BCDIF, CRP #### [address] [place] [address] #### WSR #### [facility] [address] [place] [phone] DTYPE Auto Diff [facility] Comment on above: Performed By: #### C BCDIF, CRP #### [address] [place] [address] #### WSR #### [facility] [address] [place] [phone] Eosinophils #/vol (Bld) 0.08 10*3/uL Normal <0.46 [facility] Comment on above: Performed By: #### C BCDIF, CRP #### [address] [place] [address] #### WSR #### [facility] [address] [place] [phone] Eosinophils/100 WBC (Bld) 0.9 % Normal [facility] Comment on above: Performed By: #### C BCDIF, CRP #### [address] [place] [address] #### WSR #### [facility] [address] [place] [phone] Erythrocyte distribution width Ratio (RBC) 13.5 % Normal 11.5-15.0 [facility] Comment on above: Performed By: #### C BCDIF, CRP #### [address] [place] [address] #### WSR #### [place] [address] [place] [phone] Hematocrit Volume Fraction (Bld) 42.3 % Normal 36.0-46.0 [facility] Comment on above: Performed By: #### C BCDIF, CRP #### [phone] #### WSR #### [place] [address] [place] [phone] Hemoglobin mass conc (Bld) 14.0 g/dL Normal 11.5-15.5 [facility] Comment on above: Performed By: #### C BCDIF, CRP #### [address] [place] [address] #### WSR #### [facility] [address] [place] [phone] Lymphocytes #/vol (Bld) 2.07 10*3/uL Normal 1.00-4.00 [facility] Comment on above: Performed By: #### C BCDIF, CRP #### [address] [place] [address] #### WSR #### [facility] [address] [place] [phone] Lymphocytes/100 WBC (Bld) 23.1 % Normal [facility] Comment on above: Performed By: #### C BCDIF, CRP #### [address] [place] [address] #### WSR #### [facility] [address] [place] [address] MCH Entitic mass (RBC) 31.1 pG Normal 26.0-34.0 [facility] Comment on above: Performed By: #### C BCDIF, CRP #### [address] [place] [address] #### WSR #### [place] [address] MCHC mass conc (RBC) 33.1 g/dL Normal 30.5-36.0 [facility] Comment on above: Performed By: #### C BCDIF, CRP #### [address] [place] [address] #### WSR #### [facility] [address] [place] [address] MCV Entitic volume (RBC) 94.0 fL Normal 80.0-100.0 [facility] Comment on above: Performed By: #### C BCDIF, CRP #### [address] [facility]25 #### WSR #### [facility] [address] [place] [address] Monocytes/100 WBC (Bld) 5.5 % Normal [facility] Comment on above: Performed By: #### C BCDIF, CRP #### [address] [place] [address] #### WSR #### [facility] [address] [place], [place] [address] Neutrophils/100 WBC (Bld) 69.9 % Normal [facility] Comment on above: Performed By: #### C BCDIF, CRP #### [facility] [address] [place] [address]., [facility]25 #### WSR #### [facility] [address] [place] [address] NRBCs 0.0 /100 WBC Normal 0 [facility] Comment on above: Performed By: #### C BCDIF, CRP #### [address] [place] [address] #### WSR #### [place] [address] Platelet mean volume Entitic volume (Bld) 9.5 fL Normal 9.0-12.7 [facility] Comment on above: Performed By: #### C BCDIF, CRP #### [address] [place] [address] #### WSR #### [place] [address] Platelets #/vol (Bld) 279 10*3/uL Normal 150-400 [facility] Comment on above: Performed By: #### C BCDIF, CRP #### [address] [place] [address] #### WSR #### [place] [address] [place] [address] RBC #/vol (Bld) 4.50 10*6/uL Normal 3.90-5.20 [facility] Comment on above: Performed By: #### C BCDIF, CRP #### [address] [facility]25 #### WSR #### [facility] [address] [place], [place] [address] WBC #/vol (Bld) 8.97 10*3/uL Normal 3.70-11.00 [facility] Comment on above: Performed By: #### C BCDIF, CRP #### [facility] [address] [place] [address] #### WSR #### [facility] [address] [place], [place] [address] ED NOTEon 10-31-2018 ED NOTE HNO ID: [id number] Author: Erwin Dye MD Service: Emergency Medicine Author Type: Physician Type: ED Notes Filed: 11/03/2018 2:16 PM Note Text: Doing better, followed up with spine [facility] ED NOTE HNO ID: [id number] Author: Vasquez BairesRn) STEVE Winchester Service: ? Author Type: Registered Nurse Type: ED Notes Filed: 10/31/2018 9:15 AM Note Text: [facility] c/c 04/12 lower back pain she states [...] - notify physician of changes in condition [facility] ED NOTE HNO ID: [id number] Author: Lubna BairesRn) STEVE Dumont Service: ? Author Type: Registered Nurse Type: ED Notes Filed: 10/31/2018 9:08 AM Note Text: Bed: ED-15 Expected date: Expected time: Means of arrival: Comments: Trice [facility] ED PROV NOTEon 10-31-2018 Protein mass conc HNO ID: [id number] Author: Erwin Dye MD Service: Emergency Medicine [...] has TENS unit at home. Evaluated by mortgage protection specialist earlier today who advised her to [...] Dilation AND curettage several - EGD 11/2017 - EGD 11/2013 - ENLARGE BREAST WITH [...] MD Erwin Zarco MD 10/31/18 1421 Normal [facility] Sed Rate Westergrenon 2018 Sed Rate Westergren 8 mm/hr Normal 0-20 [facility] Comment on above: Performed By: #### C BCDIF, CRP #### [facility] [address] [place] [address] #### WSR #### [facility] [address] [place], [place] [address] Dermatopathologyon 9 Dermatopathology Pathologist: SETH BERNAL MD Date of Procedure: 09/12/2018 Date Received: 09/13/2018 Date Reported 09/14/2018 Submitting Physician: KEILY CRAIN MD Location: [facility] FINAL DIAGNOSIS SKIN, RIGHT SABIANISM, EXCISION: CHANGES CONSISTENT WITH PREVIOUS PROCEDURE, PRESENT ON THE DEEP AND PERIPHERAL MARGIN WITHOUT RESIDUAL SQUAMOUS CELL CARCINOMA SEEN. Electronically Signed Out by SETH BERNAL M.D. Electronically Signed Out By SETH BERNAL MD/[facility] Microscopic Description: Microscopic examination reveals a specimen that extends into the subcutaneous fat. An area with horizontally oriented collagen and vertically oriented vessels is present. 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 Specimens Submitted As: A: SKIN, RIGHT SABIANISM Gross Description: Received in formalin is a craig piece of skin measuring 16 x 5 x 1 mm. Inked and embedded in toto in two blocks. [facility]/09/13/2018 Normal [facility] Comment on above: Performed By: #### D #### Dermatopathology Dermatopathologyon 9 Dermatopathology Pathologist: SETH BERNAL MD Date of Procedure: 07/11/2018 Date Received: 07/12/2018 Date Reported 07/13/2018 Submitting Physician: KEILY CRAIN MD Location: [facility] FINAL DIAGNOSIS A. 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 B. SKIN, RIGHT SABIANISM, BIOPSY: CONSISTENT WITH INVASIVE SQUAMOUS CELL CARCINOMA, WELL DIFFERENTIATED, PRESENT ON THE DEEP MARGIN, SEE NOTE. Note: Microscopic examination reveals a specimen that extends into the superficial dermis. There are areas of invagination of the epidermis with a slight downward bulbous growth pattern. There is mild to moderate solar elastosis. Electronically Signed Out by SETH BERNAL M.D. Electronically Signed Out By SETH BERNAL MD/[facility] Microscopic Description: A. 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 Clinical History: A: NAD. B: ISK vs. SCC. Specimens Submitted As: A: SKIN, RIGHT PHAM B: SKIN, RIGHT SABIANISM Gross Description: A: Received in formalin is a craig-brown piece of skin measuring [id number]. The specimen is inked and embedded in toto. B: Received in formalin is a craig piece of skin measuring 62t4e7in. The specimen is inked and embedded in toto. ink/07/12/2018 Normal [facility] Comment on above: Performed By: #### D #### Dermatopathology Vital Signs Date Time Vital Sign Value Performing Clinician Facility 06-02-2023 13:15-0500 Body height 160.02 cm Sharonda Calix Other [employer] Other 06-02-2023 13:15-0500 Body mass index (BMI) [Ratio] 23.27 kg/m2 Sharonda Calix Other [employer] Other 06-02-2023 13:15-0500 Body temperature 96.9 [degF] Sharonda Calix Other [employer] Other 06-02-2023 13:15-0500 Body weight 59.6 kg Sharonda Calix Other [employer] Other 06-02-2023 13:15-0500 Diastolic blood pressure 79 mm[Hg] Sharonda Calix Other [employer] Other 06-02-2023 13:15-0500 SaO2% (BldA) [Mass fraction] 95 % Sharonda Calix Other [employer] Other 06-02-2023 13:15-0500 Systolic blood pressure 120 mm[Hg] Sharonda Calix Other [employer] Other 03-17-2023 11:00-0400 Body height 167.64 cm Enrrique Grant Other [employer] Other 09-17-2022 11:00-0400 Body mass index (BMI) [Ratio] 20.98 kg/m2 Enrrique Grant Other [employer] Other 09-17-2022 11:00-0400 Body weight 58.97 kg Enrrique Grant Other [employer] Other 09-17-2022 11:00-0400 Diastolic blood pressure 97 mm[Hg] Enrrique Grant Other [employer] Other 09-17-2022 11:00-0400 Systolic blood pressure 139 mm[Hg] Enrrique Grant Other [employer] Other 07-29-2022 12:11-0500 Diastolic blood pressure 84 mm[Hg] MD Jameel Manzanares Work Phone: [facility] 07-29-2022 12:11-0500 Heart rate 71 /min MD Jameel Manzanares Work Phone: [facility] 07-29-2022 12:11-0500 Respiratory rate 16 /min MD Jameel Manzanares Work Phone: [facility] 07-29-2022 12:11-0500 SaO2% (BldA) [Mass fraction] 96 % MD Jameel Manzanares Work Phone: [facility] 07-29-2022 12:11-0500 Systolic blood pressure 120 mm[Hg] MD Jameel Manzanares Work Phone: [facility] 07-29-2022 09:45-0500 Body height 160.02 cm MD Jameel Manzanares Work Phone: [facility] 07-29-2022 09:45-0500 Body temperature 98.4 [degF] MD Jameel Manzanares Work Phone: [facility] 07-29-2022 09:45-0500 Body weight 58.96 kg MD Jameel Manzanares Work Phone: [facility] Encounters Encounter Date Encounter Type Care Provider Facility Start: 12-22-2023 ambulatory [facility] Start: 12-22-2023 ambulatory [facility] Start: 12-01-2023 End: 12-01-2023 [facility] Start: 11-15-2023 ambulatory KIERAN FITZGERALDCKO [facility] Start: 09-05-2023 End: 09-05-2023 ambulatory SHAAN H TIMMIS Not Available Start: 08-26-2023 End: 08-26-2023 ambulatory Sharonda Calix Other [employer] Other Start: 08-26-2023 Telephone encounter Sharonda Calix [facility] Start: 08-18-2023 End: 08-19-2023 ambulatory Shaan H Timmis [facility] Start: 07-06-2023 End: 07-06-2023 ambulatory SHAAN H TIMMIS Not Available Start: 07-06-2023 End: 08-11-2023 Pre-admission assessment Shaan H Timmis [facility] Start: 06-21-2023 End: 06-21-2023 ambulatory Sharonda Calix Other [employer] Other Start: 06-21-2023 Telephone encounter Sharonda Calix [facility] Start: 06-20-2023 Telephone encounter Sharonda Calix [facility] Start: 06-20-2023 End: 06-20-2023 ambulatory JOSE [facility] [employer] Other Start: 06-17-2023 End: 06-17-2023 ambulatory Sharonda Calix Other [employer] Other Start: 06-17-2023 Telephone encounter Sharonda Calix [facility] Start: 06-06-2023 End: 06-06-2023 ambulatory Sharonda Calix Other [employer] Other Start: 06-06-2023 Telephone encounter Sharonda Calix [facility] Start: 06-02-2023 End: 06-02-2023 ambulatory Sharonda Calix Other [employer] Other Start: 06-02-2023 Office outpatient visit 25 minutes Sharonda Calix [facility] Start: 05-19-2023 Nursing evaluation o f patient and report Sharonda Calix [facility] Start: 05-19-2023 End: 05-19-2023 [facility] [employer] [facility] Start: 04-26-2023 End: 04-26-2023 ambulatory [facility] Start: 02-16-2023 End: 02-16-2023 ambulatory [facility] Start: 01-12-2023 End: 01-12-2023 ambulatory [facility] Start: 10-21-2022 End: 10-22-2022 ambulatory AAKASH CALIX . Facility:[facility] Start: 09-17-2022 End: 09-17-2022 ambulatory Enrrique Grant Other [employer] Other Start: 09-17-2022 Office outpatient visit 15 minutes Enrrique Grant [facility] Start: 08-04-2022 End: 08-05-[address] ÁNGEL PUGH Facility:[facility] Start: 07-29-2022 End: 07-29-2022 ambulatory Enrrique Grant Facility:[facility] Start: 07-29-2022 End: 07-29-2022 Admission to same day surgery center MD Jameel Manzanares Work Phone: [facility] Work Phone: Start: 07-29-2022 End: 07-29-2022 ambulatory MD Jameel Manzanares Work Phone: [facility] Work Phone: Start: 07-13-2022 End: 07-14-2022 ambulatory KIERAN PETERS[facility] Facility:H1 Start: 06-23-2022 End: 06-24-[address] MERCY MORGAN . Facility:[facility] Start: 06-16-2022 ambulatory Jyoti García MD Work Phone: Internal Medicine [facility] [place] Start: 06-11-2022 End: 06-11-[address] MERCY [...] laboratory examination DR ANTONELLA WAYNE . [facility] Start: 10-27-2021 End: 10-27-[address] ANTONELLA WAYNE . Facility:[facility]1 Start: 10-26-2021 End: 10-27-2021 Encounter for preprocedural laboratory examination DR ANTONELLA WAYNE . Facility:[facility] Start: 10-26-2021 End: 10-27-[address] ANTONELLA WAYNE . Facility:[facility] Start: 04-30-2020 [facility] Work Phone: Start: 02-14-2020 End: 02-14-2020 Subsequent hospital visit by physician M[facility] [employer] [facility] (I-Stat/1.5t) Radiology Comment on above: Chronic mixed headac he syndrome [G44.89] Start: 10-31-2018 End: 10-31-2018 Emergency department patient visit [facility] Start: 08-25-2018 [facility] Work Phone: Start: 11-02-2017 Patient encounter procedure [facility] Work Phone: Start: 10-21-2017 Patient encounter procedure [facility] Work Phone: Procedures [...] OD Work Phone: Start: 07-04-2017 Colonoscopy Jojo veans OD Work Phone: Screening for malign ant neoplasm of colon Enrrique Grant Other Plan of Treatment Date Care Activity Detail Author Start: 09-11-2024 Lipid 1996 panel - Serum or Plasma Lipid Screening [facility] Start: 09-11-2024 LIPID SCREEN LIPID SCREEN [facility] Start: 03-04-2023 Influenza vaccination Influenza Vacc ine (#1) [facility] Start: 09-11-2022 DIABETES SCREEN DIABETES SCREEN [facility] Start: 09-11-2022 Diabetes Screening Diabetes Screenin g [facility] Start: 07-29-2022 [facility] Start: 07-04-2022 Advance Directive Discussion Advance Directive Discussion [facility] Start: 07-04-2022 Colonoscopy COLONOSCOPY [facility] Start: 07-04-2022 COLORECTAL CANCER SCREENING COLORECTAL CANCER SCREENING [facility] Start: 07-04-2022 Depression Assessment Depression Ass essment [facility] Start: 03-04-2022 Influenza vaccination INFLUENZA (#1) [facility] Start: 08-13-2021 Adult depression screening assessment DEPRESSION SCREENING [facility] Start: 07-04-2021 ADVANCE DIRECTIVE DISCUSSION ADVANCE DIRECTIVE DISCUSSION [facility] Start: 07-04-2021 DEPRESSION ASSESSMENT DEPRESSION ASS ESSMENT [facility] Start: 03-30-2021 Urine microalbumin profile [facility] Start: 09-12-2019 Mammography [facility] Start: 2016 RSV Vaccine (1 - 1-d ose 60+ series) RSV Vaccine (1 - 1-dose 60+ series) [facility] Start: 05-23-2014 Pneumococcal Vaccine : 65+ (2 - PCV) Pneumococcal Vaccine: 65+ (2 - PCV) [facility] Start: 05-23-2014 PNEUMOCOCCAL: 65+ (2 - PCV) PNEUMOCOCCAL: 65+ (2 - PCV) [facility] Start: 11-30-2013 FECAL OCCULT BLOOD FECAL OCCULT BLOO D [facility] Start: 2006 SHINGRIX VACCINE (1 of 2) SHINGRIX VACCINE (1 of 2) [facility] Start: 2001 COLOGUARD (FIT-DNA) COLOGUARD (FIT-D NA) [facility] Start: [address] COLONOGRAPHY [facility] Start: 2001 SIGMOIDOSCOPY SIGMOIDOSCOPY [facility] Start: 1955 COVID-19 VACCINE (#1) COVID-19 VACCI NE (#1) [facility] End: 07-16-2023 DOLORES SCREENING DOLORES SCREENING Radiology Routine Encounter for screening mammogram for breast cancer 1 Occurrences starting 06/16/2022 until 07/16/2023 [facility] Work Phone: Comment on above: 1 Occurrences starti ng 06/16/2022 until 07/16/2023 Patient Education Hemorrhoids Co desean Polyps Diverticulosis (DC) [facility] Work Phone: Immunizations Immunization Date Immunization Notes Care Provider Cierra christian 05-19-2023 influenza, high dose seasonal, preservative-free Sharonda Michele Other [employer] Other 06-19-2020 influenza, injectabl e, quadrivalent, contains preservative Jojo Foster OD Work Phone: [facility] 06-19-2020 influenza virus vacc ine, unspecified formulation Mri (I-Stat/1.5t) [facility] 09-11-2019 influenza, injectabl e, quadrivalent, contains preservative Jojo Wesley OD Work Phone: [facility] 09-11-2019 zoster vaccine, recombinant, adjuvanted, (SHINGRIX, PF,) 50 mcg/0.5 mL injection Mri (I-Stat/1.5t) [facility] Work Phone: Comment on above: Inject 0.5 mL intram uscularly now and repeat 2nd dose in 2-6 months 03-28-2017 influenza, injectabl e, quadrivalent, contains preservative Jojo Wesley OD Work Phone: [facility] 08-12-2016 influenza, injectabl e, quadrivalent, preservative free Jojo Foster OD Work Phone: [facility] Work Phone: 04-14-2015 influenza, injectabl e, quadrivalent, preservative free Jojo Foster OD Work Phone: [facility] Work Phone: 05-23-2013 influenza virus vacc ine, unspecified formulation Jojo Foster OD Work Phone: [facility] 05-23-2013 pneumococcal polysaccharide vaccine, 23 valent Jojo Wesley OD Work Phone: [facility] 04-13-2012 influenza virus vacc ine, unspecified formulation Jojo Foster OD Work Phone: [facility] 03-30-2011 tetanus toxoid, redu rukhsana diphtheria toxoid, and acellular pertussis vaccine, adsorbed Jojo Foster OD Work Phone: [facility] Payers Date Payer Category Payer Self-pay 2019 Unknown [employer] PPO OOS [id number] 2019-Present [phone] [address] [place] [address] PPO [id number] 2019 Unknown [employer] PPO OOS [id number] 2019-Present [phone] [address] [place] [address] PPO [id number] 1959 Private Health Insurance [facility] [id number] 1955 Unknown [id number] 1956 Unknown [id number] 2.16.840.1.689009.3.579.2.5 1956 Unknown [id number] 2.16.840.1.066406.3.579.2.5 1956 Unknown [id number] 2.16.840.1.774973.3.579.2.5 1956 Unknown [id number] 2.16.840.1.737218.3.579.2.5 1956 Unknown [id number] 2.16.840.1.170529.3.579.2.5 1956 Unknown [id number] 2.16.840.1.447339.3.579.2.5 1956 Unknown [id number] 2.16.840.1.934612.3.579.2.5 1956 Unknown [id number] 2.16.840.1.857473.3.579.2.5 93 1956 Unknown [id number] 2.16.840.1.957342.3.579.2.5 93 1956 Unknown [id number] 2.16.840.1.169344.3.579.2.5 93 1956 Unknown [id number] 2.16.840.1.247613.3.579.2.5 93 1956 Unknown [id number] 2.16.840.1.924067.3.579.2.5 93 1956 Unknown [id number] 2.16.840.1.333267.3.579.2.1 259 1956 Unknown [id number] 2.16.840.1.507610.3.579.2.7 27 1955 Unknown [id number] 2.16.840.1.300307.3.579.2.1 259 Unknown [id number] 2.16.840.1.126686.3.579.2.5 31 Social History Date Type Detail Facility [facility] 07[facility]04-[facility] Start: 07-04-1985 History of tobacco use Cigarette Smo ker [facility] Start: 01-29-2020 End: 10-20-2020 Alcohol intake Current drinker of alcohol (finding) [facility] Start: 01-18-2020 End: 02-28-2020 History SDOH Alcohol Frequency 2 [facility] Start: 01-18-2020 End: 02-28-2020 History SDOH Alcohol Std Drinks 1 [facility] Start: 07-25-2014 History SDOH Alcohol Comment 1 drink per year [facility] Start: 09-11-2019 End: 01-18-2020 History SDOH Social Connections Phone 3 [facility] Start: 01-18-2020 History SDOH Physica l Activity DPW 5 [facility] Start: 09-11-2019 Education 15 [facility] Start: 09-11-2019 Tobacco Comment current 0.5-1ppd [facility] Start: 1955 Sex Assigned At Female [facility] Start: 09-11-2019 End: 01-18-2020 Cigarettes smoked current (pack per day) - Reported 0.8 [facility] Start: 09-11-2019 Tobacco use and exposure Smoke less tobacco non-user [facility] Work Phone: Start: 07-29-2022 Tobacco smoking stat us NHIS Smoker (finding) [facility] Start: 09-11-2019 End: 01-18-2020 Sex Assigned At [facility] Frequency of Communication with Friends and Family Not on file [facility] Do you belong to any clubs or organizations such as scientology groups, unions, fraternal or athletic groups, or school groups? Yes [facility] How often to you hav e a drink containing alcohol? Monthly or less [facility] How many standard dr inks containing alcohol do you have on a typical day? 1 or 2 [facility] How often do you hav e 6 or more drinks on 1 occasion? Never [facility] Do you feel stress - tense, restless, nervous, or anxious, or unable to sleep at night because your mind is troubled all the time - these days [OSQ] Only a little [facility] (I/We) worried whebeto er (my/our) food would run out before (I/we) got money to buy more. Never true [facility] In the past 12 month s, was there a time when you were not able to pay the mortgage or rent on time? No [facility] Start: 11-17-2018 Gender identity Identifies as female gender (finding) [facility] Start: 11-17-2018 Sexual orientation Choose not to disclose [facility] Start: 01-15-2020 End: 02-14-2020 Exposure to SARS-CoV-2 (event) Not sure [facility] Tobacco smoking status No Smokin g Status Entered [facility] NEGATED: Highlighted row - Current every day smoker [facility] Work Phone: Goals Date Patient Goal Desired Activity /State Functional Status Date Assessment Result Facility NEGATED: Highlighted row Functional performance Functional status health issues are not documented Disease [facility] Work Phone: Mental Status Date Assessment Result Facility NEGATED: Highlighted row Cognitive function [Interpretation] Cognitive status health issues are not documented Disease [facility] Work Phone: Clinical Notes 06-05-2012 to 12-01-2023 Note Date & Type Note Facility 12-01-2023 Note MD Cardiology - [facility] Subjective Marly Jaffe is a 68 y.o. year old female patient being seen for palpitation, s/p loop recorder placement Patient Active Problem List Diagnosis Postmenopausal atrophic vaginitis Multiple thyroid nodules Lumbosacral spondylosis without myelopathy GERD (gastroesophageal reflux disease) Family history of early CAD Family history of diabetes mellitus (DM) Family history of colon cancer Elevated IOP Essential hypertension Constipation Colon polyps Bilateral wrist pain Allergic rhinitis Tobacco dependency Syncope Symptomatic menopausal or female climacteric states Spinal stenosis Smoker SVT (supraventricular tachycardia) (CMS/HCC) Anxiety Chronic cough Chronic maxillary sinusitis Chronic pansinusitis Neck mass PND (post-nasal drip) HPI Patient is here today for follow-up visit. She states that her palpitation has been much better since she stopped the muscle relaxing medications and started on Toprol XL. In September she recorded many events because she was under a lot of stress because of her mother sickness and however her symptoms have been much better in October and November. She states that she drinks a lot of water and she has been cutting down extremely on the caffeine. She does not drink alcohol. She has been walking with her on daily basis without symptoms. She admits occasional little palpitations when overexerts herself. She denies chest pain or shortness of breath with exercise. She denies orthopnea or paroxysmal nocturnal dyspnea or legs edema. She has been checking her blood pressure twice a day it has been in the 100s to 110s. She is concerned that her blood pressure is always on the low side but she denies any dizziness or fatigue. ROS All symptoms were reviewed and they were negative except for the positive findings noted in the history above Past Medical History: Diagnosis Date Abnormal ECG Anxiety GERD (gastroesophageal reflux disease) SVT (supraventricular tachycardia) Past Surgical History: Procedure Laterality Date BREAST SURGERY implants REPLACEMENT TOTAL KNEE ONCOLOGIC UTERINE FIBROID EMBOLIZATION Family History Problem Relation Name Age of Onset Stroke Mother Hypertension Mother Cancer Mother Stroke Father Other (pacemaker/ICD) Father Social History Tobacco Use Smoking status: Every Day Packs/day: 1 Types: Cigarettes Start date: 1988 Passive exposure: Current Smokeless tobacco: Never Substance Use Topics Alcohol use: Never Drug use: Never Allergies Allergies Allergen Reactions Prochlorperazine Other Other reaction(s): Other (See Comments) seizures seizures Tramadol Other and Rash Other reaction(s): GI Intolerance, GI Upset n/v Amoxicillin-Pot Clavulanate Rash Hydroxychloroquine Rash Sulfa (Sulfonamide Antibiotics) Rash Medications Current Outpatient Medications: alendronate (Fosamax) 35 mg tablet, Take 35 mg by mouth in the morning., Disp: , Rfl: ALPRAZolam (Xanax) 0.5 mg tablet, Take 0.5 mg by mouth if needed in the morning, at noon, and at bedtime., Disp: , Rfl: amLODIPine (Norvasc) 2.5 mg tablet, Take 1 tablet (2.5 mg) by mouth in the morning., Disp: 30 tablet, Rfl: 11 aspirin 81 mg EC tablet, Take 81 mg by mouth in the morning., Disp: , Rfl: calcium carbonate-vitamin D3 600 mg-10 mcg (400 unit) tablet, Take by mouth., Disp: , Rfl: cholecalciferol, vitamin D3, 50 mcg (2,000 unit) capsule, Take 2,000 Units by mouth in the morning., Disp: , Rfl: metoprolol succinate XL (Toprol-XL) 25 mg 24 hr tablet, Take 1 tablet (25 mg) by mouth in the morning. Do not crush or chew., Disp: 90 tablet, Rfl: 3 montelukast (Singulair) 10 mg tablet, Take 10 mg by mouth in the morning., Disp: , Rfl: multivitamin tablet, Take by mouth., Disp: , Rfl: omeprazole (PriLOSEC) [address] capsule, Take 40 mg by mouth before breakfast., Disp: , Rfl: albuterol 90 mcg/actuation inhaler, Inhale 2 puffs every 4 (four) hours if needed., Disp: , Rfl: coenzyme Q-10 100 mg capsule, Take 100 mg by mouth in the morning., Disp: , Rfl: fluticasone (Flonase) 50 mcg/actuation nasal spray, Administer 2 sprays into each nostril in the morning., Disp: , Rfl: meloxicam (Mobic) 15 mg tablet, TAKE 1 TABLET EACH MORNING, Disp: , Rfl: methocarbamol (Robaxin) 500 mg tablet, Take 500 mg by mouth., Disp: , Rfl: Objective Visit Vitals BP 112/77 (BP Location: Left arm, Patient Position: Sitting) Pulse 72 Ht 1.676 m (5' 6 ) Wt 61.2 kg (135 lb) SpO2 96% BMI 21.79 kg/m??? Smoking Status Every Day BSA 1.69 m??? Physical exam: GENERAL: alert and oriented x3, well developed, in no acute distress. HEAD: atraumatic, normocephalic. EYES: CARROLL, EOMI. NECK: trachea midline, no JVD present, no carotid bruits present. CARDIAC: S1, S2 present. RRR. No murmur, rubs, or gallops. RESPIRATORY: CTAB, no increased effort of breathing, no ral (more content not included)... [facility] 12-01-2023 Note Patient here for 6 m o follow up palpitations and hypertension. Amlodipine was reduced at last visit to 2.5mg daily. She brought in her BP log and most SPB is around 100-110. Patient is very concerned with her numbers and thinks these are way too low. She denies lightheadedness. C/o fatigue. Gets intermittent palpitations, and has a lot of anxiety. Review of Systems Cardiovascular: Positive for chest pain ( chest wall ), irregular heartbeat and palpitations. Respiratory: Positive for cough. Allergic/Immunologic: Positive for environmental allergies. All other systems reviewed and are negative. [facility] 06-21-2023 Evaluation note Encounter Date Diagnosis Assessment Notes Jun, Post-nasal drainage (ICD-10 - R09.82) [employer] Other [id number] NoteUT Cardiology Consult Note Reason for visit: [...] not included)...[facility]12-18-2023 NotePatient here for 1 mo follow up [...] negative.[facility] 06-02-2023 Evaluation note* Encounter Date Diagnosis Assessment Notes [...] Imaging and consider ENT referral if needed. [employer] Other 11-22-2023 NotePatient Outreach (INTMMN) MARLY JAFFE ([id number]) 1955 F Date Time Provider Department 05/25/23 [...] for screening mammogram for breast cancer [Z12.31] Order(s):[facility] SCREENING [[id number]] Order #: [id number] FUTURE Prescriptions as of 05/30/2023 - travoprost [...] at bedtime as needed. - MV with Uml-Zsbwslgq-Xdydxy (CENTRUM SILVER) 0.4-300-250 mg-mcg-mcg tab Take 1 [...] (DM) [Z83.3] Postmenopausal atrophic vaginitis [N95.2] Dyspareunia [SDS0094] 11/04/2017 Tobacco user [Z72.0] 05/03/2013 Symptomatic menopausal or female climacteric st* Screening breast examination [Z12.39] 03/30/2011 08/02/2011 Constipation [K59.00] Abnormal mammogram [R92.8] 08/02/2011 11/04/2017 Elevated BP [OME0666] 08/02/2011 Chest pain [R07.9] 09/17/2011 05/03/2013 Tobacco dependency [F17.200] 09/17/2011 Family history of early CAD [Z82.49] 09/17/2011 Syncope [R55] 09/17/2011 Postmenopausal HRT (hormone replacement therapy*06/05/2012 Screening breast examination [Z12.39] 06/05/2012 05/03/2013 Elevated IOP [H40.059] 05/03/2013 Multiple thyroid nodules [E04.2] 05/03/2013 Family history of colon cancer [Z80.0] 03/28/2017 Smoker [F17.200] 05/03/2017 Bilateral wrist pain [M25.531, M25.532] 07/14/2017 Encounter Status:Closed by [employer], [employer] on 05/30/23[facility] 05-19-2023 Evaluation note* Encounter Date Diagnosis Assessment Notes Treatment Notes Treatment Clinical Notes May, Allergic rhinitis, unspecified seasonality, unspecified trigger (ICD-10 - J30.9) [employer] Other 11-16-2023 NoteLOOP IMPLANT PROCEDURE NOTE DATE OF PROCEDURE: 05/19/23 PERFORMING PHYSICIAN: Dr. Kieran Petersen AMBULETTE DRIVER: LIZ INDICATIONS FOR PROCEDURE: 1. SVT/AF surveillance [...] the sternum on the left using the [employer] tool. The loop recorder was then injected [...] Cardiac Electrophysiology.[facility]10-24-2023 NoteUT Cardiology Consult Note Reason for visit: [...] negative.[facility] 01-12-2023 NoteUT Cardiology Consult Note Reason for visit: [...] GERD (gastroesophageal reflux disease) SVT (supraventricular tachycardia) ([facility]) PSH: Past Surgical History: Procedure Laterality Date [...] not included)...[facility]04-20-2023 NoteCONSULTATION CONSULTATION DATE: 10/21/2022 TO: Jameel Manzanares [...] our patients to inform us about any ruoy-ekf-vebtrzm medications or herbal remedies/nutritional supplements/alternative remedies. 2. [...] treatment options with their primary care provider.[id number] Evaluation note * Encounter Date Diagnosis Assessment Notes Treatment Notes Treatment Clinical Notes Sep, Constipation (ICD-10 - K59.00) Sep, Diverticulosis (ICD-10 - K57.90) Sep, Hemorrhoids (ICD-10 - K64.9) Sep, Other Repeat colonoscopy in 5 yrs [employer] Other [facility]20[facility] NotePatient Outreach (INTMMN) MARLY JAFFE ([id number]) 1955 F Date Time Provider Department 06/16/22 [...] for screening mammogram for breast cancer [Z12.31] Order(s):[facility] SCREENING [[id number]] Order #: [id number] FUTURE Prescriptions as of 06/21/2022 - omeprazole [...] at bedtime as needed. - MV with Dif-Xvwxwpnj-Qlsvqg (CENTRUM SILVER) 0.4-300-250 mg-mcg-mcg tab Take 1 [...] (DM) [Z83.3] Postmenopausal atrophic vaginitis [N95.2] Dyspareunia [NUH7223] 11/04/2017 Tobacco user [Z72.0] 05/03/2013 Symptomatic menopausal or female climacteric st* Screening breast examination [Z12.39] 03/30/2011 08/02/2011 Constipation [K59.00] Abnormal mammogram [R92.8] 08/02/2011 11/04/2017 Elevated BP [XSR3885] 08/02/2011 Chest pain [R07.9] 09/17/2011 05/03/2013 Tobacco dependency [F17.200] 09/17/2011 Family history of early CAD [Z82.49] 09/17/2011 Syncope [R55] 09/17/2011 Postmenopausal HRT (hormone replacement therapy*06/05/2012 Screening breast examination [Z12.39] 06/05/2012 05/03/2013 Elevated IOP [H40.059] 05/03/2013 Multiple thyroid nodules [E04.2] 05/03/2013 Family history of colon cancer [Z80.0] 03/28/2017 Smoker [F17.200] 05/03/2017 Bilateral wrist pain [M25.531, M25.532] 07/14/2017 Encounter Status:Closed by FOUZIA COLLADO on 06/21/22[facility] 05-07-2022 Miscellaneous Notes* Telephone Encounter - Judy Patel MA - 05/07/2022 7:21 AM EDT Pharmacy escribed requesting the following refill. Requested Prescriptions Pending Prescriptions Disp Refills omeprazole (PRILOSEC) 20 mg capsule [Pharmacy Med Name: OMEPRAZOLE DR 20 MG CAPSULE] 90 capsule 1 Sig: TAKE 1 CAPSULE BY MOUTH EVERY DAY Patient last appointment: 08/13/2020 Patient Phone numbers: [phone] (home) Request is for script(s) to be escript to pharmacy. Judy Patel [facility] NoteCONSULTATION CONSULTATION DATE: 02/10/2022 This is [...] changes in the weather. 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 She denies any [...] time and the patient is in agreement.[id number] NoteCONSULTATION CONSULTATION DATE: 11/26/2021 HISTORY OF PRESENT [...] Patient agrees with the plan of care. [facility] Signed and Approved by: SWEETIE ROBERTS . 12/03/2021 16:05:00[facility]08-13-2020 History of Present illness Narrative* Gail Ferrari (Rn), RN - 02/14/2020 10:00 AM EDT Radiology [...] 2020 TIME: 9:41 AM [facility] History of Past illness Narrative* Problem Noted Date Resolved Date Screening breast examination 06/05/2012 Chest pain 09/17/2011 05/03/2013 Abnormal mammogram 08/02/2011 11/04/2017 Screening breast examination 03/30/2011 Colon cancer screening 03/03/2009 2 Degeneration of lumbar or lumbosacral interverte bral disc 01/24/2009 10/22/2013 Dyspareunia 11/04/2017 Tobacco user 05/03/2013 documented as of this encounter (statuses as of 02/01/2022) [facility]12-03-2012 History of Past illness Narrative* Problem Noted Date Resolved Date Screening breast examination 06/05/2012 Chest pain 09/17/2011 05/03/2013 Abnormal mammogram 08/02/2011 11/04/2017 Screening breast examination 03/30/2011 Colon cancer screening 03/03/2009 2 Degeneration of lumbar or lumbosacral interverte bral disc 01/24/2009 10/22/2013 Dyspareunia 11/04/2017 Tobacco user 05/03/2013 documented as of this encounter (statuses as of 05/07/2022) [facility]12-03-2012 History of Past illness Narrative* Problem Noted Date Resolved Date Screening breast examination 06/05/2012 Chest pain 09/17/2011 05/03/2013 Abnormal mammogram 08/02/2011 11/04/2017 Screening breast examination 03/30/2011 Colon cancer screening 03/03/2009 2 Degeneration of lumbar or lumbosacral interverte bral disc 01/24/2009 10/22/2013 Dyspareunia 11/04/2017 Tobacco user 05/03/2013 documented as of this encounter (statuses as of 06/21/2022) [facility] History of Past illness Narrative* Problem Noted Date Diagnosed Date Resolved Date Screening breast examination 06/05/2012 05/03/2013 Chest pain 09/17/2011 05/03/2013 Abnormal mammogram 08/02/2011 8 Screening breast examination 03/30/2011 08/02/2011 Colon cancer screening 03/03/200908/02 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 01/24/2009 10/22/2013 Dyspareunia 11/04/2017 Tobacco user 05/03/2013 documented as of this encounter (statuses as of 05/08/2023) [facility] Plan note No data available for this section [facility] Encounter for screening mammogram for breast cancer documented in this encounter [facility] note* Diagnosis Onset Date Resolution Status Encounter for screening colonoscopy [facility] Work Phone: Evaluation note* Diagnosis Chronic mixed headache syndrome Other headache syndromes documented in this encounter [facility] noteNo KnowNowPomeroy Maclear Other Hospital Discharge instructions Additional Instructions DISCHARGE [...] kiwi fruit Repeat colonoscopy in 5 years [facility] 1 p.o. every morning -Notify the doctor if you have any problems. -Office number [phone] Work Phone: Hospital Discharge instructions No data available for this section [facility] Name Dates Details Instructions not documented [facility] Work Phone: Progress note No data available for this section [facility] ([facility]arrative)* Diagnostic Procedure Only (Routine) - Pending Review Specialty Diagnoses / Procedures Referred By Zaid gutiérrez Referred To Contact [facility] Diagnoses Encounter for screening mammogram for breast cancer Procedures DOLORES SCREENING SCREENING MAMMOGRAPHY BI 2-[place] [address] [place] [address] [facility] [address] [place] [address] Referral ID Status Reason Start Date Expiration Date Visits Requested Visits Authorized [id number] Pending Review Auto-Generat ed Referral 2 07/16/2023 1 1 [facility] Diagnostic Procedure Only (Routine) - Closed Specialty Diagnoses / Procedures Referred By Zaid gutiérrez Referred To Contact [facility] Diagnoses Chronic mixed headache syndrome G44.89 (ICD-10-CM) - Chronic mixed headache syndrome Procedures MRI BRAIN WO/W IVCON MRI BRAIN COMBO MRI BRAIN WO/[place]CON Jyoti García [place] [address] [place] [address] [place] [address] Referral ID Status Reason Start Date Expiration Date V isits Requested Visits Authorized [id number] Closed Auto-Generate d Referral 02/11/2020 07/03/2020 1 1 [facility] Summary Purpose Family History No Family History Records Found Relationship Condition Age at Onset Recorded Date/T bishop brother Malignant neoplasm of colon Unknown sister Malignant neoplasm of bone Unknown sister Malignant neoplasm of pancreas Unknown Advance Directives No Advanced Directives Records FoundDocuments on File Type Date Recorded Patient Financial Engineer Expl anation Advance Directive(s) 10/31/2018 9:16 AM Advance Directive(s) 12/04/2012 9:42 PM Advance Directive(s) 11/29/2012 9:09 PM Documents on File Type Date Recorded Patient Financial Engineer Expl anation Advance Directive(s) 12/04/2012 9:42 PM Advance Directive(s) 11/29/2012 9:09 PM Documents on File Type Date Recorded Patient Financial Engineer Expl anation Advance Directive(s) 12/04/2012 9:42 PM [...] Diagnosis 1 Post-nasal drainage (R09.82) Referral Organization [facility] kaylah Referring Provider First Name Sharonda Referring Provider Last Name Michele Referring Provider Specialty Family [facility] cine Referred Organization [facility] Referred Provider Shaan Villalta Referred Address ,[place], [place],[address] Referred Provider Specialty Ear, Nose an d Throat Referral Priority Routine General Notes Inessa Vitale 02:51:01 PM >received today, notes locked, ins attached, referral faxed Additional Source Comments INFORMATION SOURCE (unrecogn ized section and content) DATE CREATED AUTHOR 11/12/2018 [facility] DATE CREATED AUTHOR AUTHOR'S ORGANIZ ATION 06/18/2019 [facility] DATE CREATED AUTHOR AUTHOR'S ORGANIZ ATION 05/01/2020 [facility] DATE CREATED AUTHOR AUTHOR'S ORGANIZ ATION 08/01/2022 [facility] DATE CREATED AUTHOR AUTHOR'S ORGANIZ ATION 10/26/2022 [facility] DATE CREATED AUTHOR AUTHOR'S ORGANIZ ATION 05/30/[address] [facility] DATE CREATED AUTHOR AUTHOR'S ORGANIZ ATION 07/07/2023 [facility] EPIC DATE CREATED AUTHOR AUTHOR'S ORGANIZ ATION 08/20/2023 [facility] DATE CREATED AUTHOR AUTHOR'S ORGANIZ ATION 09/06/2023 [facility] EPIC DATE CREATED AUTHOR AUTHOR'S ORGANIZ ATION 12/24/2023 [facility] Source Comments (unrecognize d section and content) In the event this informatio n is protected by the Federal Confidentiality of Alcohol and Drug Abuse Patient Records regulations: The Federal rules restrict any use of the information to criminally investigate or prosecute any alcohol or drug abuse patient.[facility] the event this information is protected by the Federal Confidentiality of Alcohol and Drug Abuse Patient Records regulations: The Federal rules restrict any use of the information to criminally investigate or prosecute any alcohol or drug abuse patient.[facility] the event this information is protected by the Federal Confidentiality of Alcohol and Drug Abuse Patient Records regulations: The Federal rules restrict any use of the information to criminally investigate or prosecute any alcohol or drug abuse patient.[facility] the event this information is protected by the Federal Confidentiality of Alcohol and Drug Abuse Patient Records regulations: The Federal rules restrict any use of the information to criminally investigate or prosecute any alcohol or drug abuse patient.[facility] Reason for Visit (unrecogniz ed section and content) Reason Comments Refill Request Reason Comments Radiology MRI Specialty Diagnoses / Procedures Referred By Contac t Referred To Contact MR IMAGING Diagnoses Chronic mixed headache syndrome G44.89 (ICD-10-CM) - Chronic mixed headache syndrome Procedures MRI BRAIN WO/W IVCON MRI BRAIN COMBO MRI BRAIN WO/W IVCON Jyoti García [place] [id number] [place] [address] [facility] [place] [id number] Referral ID Status Reason Start Date Expiration Date V isits Requested Visits Authorized [id number] Closed Auto-Generate d Referral 02/11/2020 07/03/2020 1 1 Care Teams (unrecognized sec tion and content) Hand Sander Relationship Specialty Start Date End Date Jyoti García [place] [address] [place] [address] PCP - General Internal Medicine 09/11/19 Hand Sander Relationship Specialty Start [place] Jyoti García [place] [address] [place] [address] PCP - General Internal Medicine 09/11/19 Hand Sander Relationship Specialty Start [place] Jyoti García [place] [address] [place] [address] PCP - General Internal Medicine 09/11/19 Team Status: Inactive Member Role Status Dates Enrrique Grant MD Attending Provider Active Jameel Manzanares MD Primary Care Provider Active Team Status: Active Member Role Status Dates Jameel Manzanares MD Primary Care Provider Active Hand Sander Relationship Specialty Start [place] Jy[place]ía [place] [address] [place] [address] PCP - General Internal Medicine 09/11/19 FOR [...] BE BASED ON THE PRIMARY CLINICAL RECORDS. [employer] [facility]. provides no warranty or guarantee of the accuracy or completeness of information in this document.
[2024-01-19 11:55] LABS: Anion Gap 12.8; BUN Creatinine Ratio 16.8; Calcium 9.2 mg/dL (8.5-10.1); Chloride 104 mmol/L (98-107); Estimated GFR (African America >60 (>=60); Estimated GFR (Non-African Ame 55 (>=60); Glucose 95 mg/dL (74-106); Potassium 3.8 mmol/L (3.5-5.1); Sodium 142 mmol/L (136-145); TSH W/ REFLEX FT4 1.303 uIU/mL (0.358-3.740)
== END 2024-01-19 11:06 | disposition home or self-care (01) ==
LOC: LAB 11:06
PROVIDERS: PCP Family Medicine; Visit Provider Family Medicine
DX: R63.5 Abnormal weight gain (principal); L65.9 Nonscarring hair loss, unspecified
CPT/HCPCS: 36415; 80048; 82728; 84443; 85025

== ENCOUNTER 2024-02-07 09:48 | Outpatient (OUT) | payer MEDICARE, SELFPAY ==
--- NOTE | 2024-02-07 | CONS_ITS ---
CONSULTATION DATE: 02/07/2024 TO: Estelle Bautista M.D. CHIEF COMPLAINT: Includes 2-01/10 pain to her lower back, occurring bilaterally, worse on the left than the right side. Described as a pressure type pain with sharp component, increased with activities such as standing, walking, performing transitioning maneuvers. She feels most comfortable in the semi-recumbent position. Denies any change in bowel and bladder habits or new sensorimotor change in the lower extremities. MEDICATION: Current medication list is Voltaren gel and Xanax 1 mg t.i.d. p.r.n. She is unable to tolerate nonsteroidal agents secondary to cardiac dysrhythmia issues. She reports the pain has altered her quality of life, level of functioning and, at times, her sleep pattern. EXAMINATION: Notable for patient having severe pain with lumbar axial loading maneuvers, point tenderness overlying the L4-5 interspace, severe pain with lumbar facet joint loading maneuvers occurring bilaterally, worse on the left than the right side from L4 through S1, and associated with myofascial spasm of the lumbar paravertebral muscles, also worse on the left than the right side. IMPRESSION: Our impression is patient with chronic pain secondary to lumbosacral spondylosis worse on the left from L4 through S1, myofascial spasm with myalgia and lumbago. RECOMMENDATIONS: I have recommended a trigger point injection for her myofascial spasm and myalgia of the erector spinae muscle bilaterally. Patient to have lumbar spine film, lumbosacral MRI for her lumbago. I have placed her on baclofen 10 mg pills, half a pill to one pill t.i.d and to proceed with diagnostic bilateral L4-5, L5-S1 medial branch block under fluoroscopic, and lastly initiate in aquatic therapy. As part of providing excellent, safe, comprehensive care, the following was completed at our patient's visit: 1. A medication reconciliation and review to ensure accurate knowledge of current/active medications, including asking our patients to inform us about any [id number]-[id number] medications or herbal remedies/nutritional supplements/alternative remedies. 2. A review to specifically ensure our patients have had annual screening for: elevated body mass index (BMI, see intake chart for exact total), tobacco use, screening for depression, and screening for unhealthy alcohol use. When screening is concerning, patients are provided with education and the specific recommendation to discuss the concerning health issue and treatment options with their primary care provider. ADDENDUM: Her KI on today?s visit was 36%. SANDI
== END 2024-02-07 09:49 | disposition home or self-care (01) ==
LOC: PM 09:49
PROVIDERS: PCP Family Medicine; Visit Provider Anesthesiology Pain Medicine
DX: M47.816 Spondylosis without myelopathy or radiculopathy, lumbar region (principal); M54.50 Low back pain, unspecified; M43.8X6 Other specified deforming dorsopathies, lumbar region; G89.29 Other chronic pain; M79.10 Myalgia, unspecified site; M62.838 Other muscle spasm
CPT/HCPCS: 20552; 72114; J0665; J3301

== ENCOUNTER 2024-02-07 10:44 | Outpatient (OUT) | payer MEDICARE, SELFPAY ==
--- NOTE | 2024-02-07 10:53 | XR_ITS ---
The [address] [address] Patient Name: MARLY JAFFE MRN: [id number] date: 1955 Sex: F Assigned Patient Location: [facility] Current Patient Location: [facility] Accession/Order Number: [id number] Exam Date: 02/07/2024 11:01 Report Date: 02/08/2024 13:19 At the request of: AAKASH CALIX Procedure: XR lumbar spine 6V w bending EXAMINATION: XR lumbar spine 6V w bending HISTORY: Lumbar Spondylosis, Lumbago ; chronic back pain COMPARISON: XR lumbar spine 05/05/2023 FINDINGS: BONES: Mild right convex curvature lumbar spine. No fracture or spondylolisthesis. Moderate degenerative facet arthropathy L3-4 through L5-S1. No change in alignment during flexion and extension. DISC SPACES: Moderate marked narrowing L2-3, L3-L4, L4-5. Mild narrowing L5-S1. PARASPINOUS: Negative. No paraspinous abnormality is seen. OTHER: Negative. XR/XR lumbar spine 6V w bending IMPRESSION: 1. Stable mild/moderate dextro curvature of lumbar spine. 2. No acute bone abnormality. 3. Grossly stable multilevel moderate to marked degenerative changes and facet arthropathy. Electronically authenticated by: ÁNGEL ANTHONY Date: 02/08/2024 13:19
--- OUTSIDE RECORDS SUMMARY | 2024-02-07 11:06 | XMS_ITS | CCD ---
Author Organization [facility] CliniSyal Care Team Providers Care Aquatic Physiotherapist Name Role Phone ERWIN DYE Attending Unavailable Abbass, Rami Unavailable Unavailable Unknown, Referring Provider Unavailable Unav ailable Abbass, Rami Unavailable Unavailable Chaya PAUL, Rami Unavailable Unavailable Unknown, Referring Provider Unavailable Unav ailable Raquel PAUL, Jyoti Lugo Primary Care Provider Raquel PAUL, Jyoti Lugo Primary Care Provider Raquel PAUL, Jyoti Lugo Primary Care Provider [phone] MD Enrrique Grant Attending Provider MD Jameel Manzanares Primary Care Provider [phone] Enrrique Grant Attending Unavailabl Enrrique Brambila Admitting Unavailabl e Bryson, Jameel Primary Care Unavailable Enrrique Grant Unavailable ROSANA ., DR ANTONELLA Lugo Consulting Unavailable NADERER, DR JAMEEL Ellis Primary Care Unavailable WAYNE ., DR ANTONELLA Lugo Attending Unavailable WAYNE ., DR ANTONELLA Lugo Admitting Unavailable ZIEBRAKESH, DR ÁNGEL Verduzco Consulting Unavailable NADERER, DR [...] Referring Unavailable GUILLEKIERAN Rock Referring Unavailable KEVIN, KARLSO Referring Unavailable RUBI YOO Attending Unavailable JOSE VILLALOBOS Attending Unavailable KIERAN PETERSEN Attending Unavailable JOSE VILLALOBOS Attending Unavailable KIERAN PETERSEN Admitting Unavailable GUILLE, KIERAN Attending Unavailable Allergies Allergy Classification Reported Allergen(s) Allergy Type Date of Onset Reaction(s) Facility Prochlorperazine (1 source) Prochlorperazine Drug Allergy [facility] [employer] Work Phone: Sulfonamides (antibiotic) (1 source) Sulfonamides (Antibiotic) Drug Allergy [facility] [employer] Work Phone: (5 sources) Hydroxychloroquine; 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: [HYDROXYCHLOROQUINE SULFATE] Drug Allergy [address] [facility] Repository (8 sources) Sulfonamides (Antibiotic); 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: [SULFA (SULFONAMIDE ANTIBIOTICS)] Propensity to adverse reactions to drug (disorder) Unknown Reaction [facility] Repository (6 sources) AMOXICILLIN-POT CLAVULANATE; 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: [AMOXICILLIN-POT CLAVULANATE] Propensity to adverse reactions to drug (disorder) [address] [facility] Repository (5 sources) PROCHLORPERAZINE EDISYLATE; 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: [PROCHLORPERAZINE EDISYLATE] Propensity to adverse reactions to drug (disorder) [address] [facility] Repository (4 sources) Sulfonamides (Antibiotic) drug allergy [facility] [employer] Work Phone: (1 source) drug allergy [facility] [employer] Work Phone: (13 sources) Prochlorperazine; 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: [Compazine] Drug Allergy Unknown [facility] Repository (6 sources) Prochlorperazine; 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: [PROCHLORPERAZINE] Drug Allergy 006 Other: See Comments [facility] (5 sources) traMADol; 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: [TRAMADOL] Drug Allergy 019 Intolerance, GI Upset [facility] (1 source) Prochlorperazine Drug Allergy 023 [facility] Repository (9 sources) Sulfacetamide / Sulfur Drug Allergy Unknown [facility] Other (1 source) Sulfonamides (Antibiotic) Drug allergy (disorder) [facility] Repository (1 source) Hydroxychloroquine; 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: [HYDROXYCHLOROQUINE ] Drug Allergy 006 [facility] Repository Medications Current Medications Medication Drug Class(es) Dates Sig (Normalized) Sig (Original) [id number] 60 actuat albuterol 0.09 mg/actuat metered dose [...] Start: 03-28-2017 take 1 capsule by mo [facility] once daily Cholecalciferol, Vitamin D3, [...] TAB PO Daily July 29, 2022 12:00am Napa 3 (9 sources) Napa 3 Active Napa-3 Fatty Acids (1 source) Start : 07-29 take 1000 mg by mouth once daily Napa-3 Fatty Acids Active 1000 MG PO Daily [...] on above: TAKE 1 CAPSULE BY MO [facility] EVERY DAY travoprost (13 sources) Prostaglandin [...] 12:00am Start: 07-07-2020 take 1 capsule by [facility] once daily coenzyme Q10 (CO Q-10) 100 mg cap capsule Take 1 capsule by mouth once daily. 0 07/07/2020 Active Comment on above: Take 1 capsule by [facility] once daily. Vitamin B Complex (1 [...] Comment on above: Take 1 tablet by [facility] twice daily as needed for Muscle [...] Comment on above: Take 1 capsule by [facility] daily at bedtime for 30 days. [...] as needed. Take 1 capsule by mo [facility] once daily. MV with Wfp-Fxpbdhsk-Qvsrea (CENTRUM SILVER) 0.4-300-250 mg-mcg-mcg tab (1 source) Start: 07-07-19 take 1 tablet by mouth once daily MV with Sgc-Cxugwaby-Pqbtwr (CENTRUM SILVER) 0.4-300-250 mg-mcg-mcg tab Take 1 [...] on above: Take 1 capsule by mo [facility] daily at bedtime. triamcinolone acetonide 40 mg/ml [...] 06-05-2012 Episodic Other aftercare (4 sources) Other assisted (current) drug therapy; 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: [OTH SKILLED NURSING CURRENT DRUG THERAPY] Onset: 2 Episodic Other [...] Range Facility Office Visiton 12-01-2023 Follow-up visit [id number] Marly Jaffe 1955 F Date Provider Department Center 12/01/2023 [id number] WHALEN SUSANA [facility] Family History Problem Relation Age of Onset Stroke Mother Hypertension Mother Cancer Mother Stroke Father Other Father Family Status - Relation Status Age at Mother Father Level of Service:62604 [place] OFFICE/OUTPATIENT NEW LOW MDM 30 MINUTES Normal [facility] CT Maxillofacial w/o Contras ton 08-19-2023 CT [...] MD Transcribed by: CHRISTIAN Technologist: MARTELL Normal [facility] Consent for Treatmenton 08-04 Consent for Treatment [id number] #1.00TIFF Normal [facility] Physician Orderon 07-08-2023 Physician Order [id number] #1.00TIFF Normal [facility] Office Visiton 06-20-2023 Follow-up visit [id number] Marly Jaffe 1955 F Date Provider Department Center 06/20/2023 [facility]SE [facility] Family History Problem Relation Age of Onset Stroke Mother Hypertension Mother Cancer Mother Stroke Father Other Father Family Status - Relation Status Age at Mother Father Level of Service:58613 [place] OFFICE/OUTPATIENT ESTABLISHED MOD MDM 30 MIN [facility] HPon 05-19-2023 H&P reviewed. The patient was examined and there are no changes to the H&P. [facility] H&P reviewed. The patient was examined and there are no changes to the H&P. [facility] NURSNOTEon 05-19-[address] Petersen for pt to discharge at this time. [facility] MAXIMUS RN educated pt on d/c instructions. RN encouraged pt to voice any questions or concerns. Pt verbalizes no questions or concerns at this time. Pt was wheeled off of unit with all of belongings. [facility] 04-26-2023 [facility] Cardiology Consult Note Reason for [...] oriented to (more content not included)... Normal [facility] Office Visiton 04-26-2023 Follow-up visit [id number] Maryl Jaffe 1955 F Date Provider Department Center 04/26/2023 Carli-KIERAN PETERSEN SUSANA [facility] Family History Problem Relation Age of Onset Stroke Mother Hypertension Mother Cancer Mother Stroke Father Other Father Family Status - Relation Status Age at Mother Father Level of Service:12504 [place] OFFICE/OUTPATIENT ESTABLISHED HIGH MDM 40-54 MIN Normal [facility] Office Visiton 02-16-2023 Follow-up visit [id number] Marly Jaffe 1955 Date Provider Department Center 02/16/2023 AbrahamJOSE COBURN [place] Family History Problem Relation Age of Onset Stroke Mother Hypertension Mother Cancer Mother Stroke Father Other Father Family Status - Relation Status Age at Mother Father Level of Service:98534 [place] OFFICE/OUTPATIENT ESTABLISHED MOD MDM 30-39 MIN Normal [facility] Office Visiton 01-12-2023 Follow-up visit [id number] Marly Jaffe 1955 Provider Department Center 01/12/2023 GualbertoLeeJOSE COBURN Family History Problem Relation Age of Onset Stroke Mother Hypertension Mother Cancer Mother Stroke Father Other Father Family Status - Relation Status Age at Mother Father Level of Service:66434 MI OFFICE/OUTPATIENT ESTABLISHED MOD MDM 30-39 MIN Reason for Visit and Comments: Follow-up [979755] - 1 month follow up Normal [facility] CT LUNG CANCER SCREENINGon 0 08-04-2022 [...] by: ÁNGEL PUGH Date: 2022-08-04 14:41 Normal [facility] XR RIBS BIL_PA CH 4V OR [...] by: ÁNGEL PUGH Date: 2022-08-04 14:45 Normal [facility] XR TSPINE MIN 4 VIEWSon XR [...] by: ÁNGEL PUGH Date: 2022-08-04 14:42 Normal [facility] Desean 07-29-2022 L Specimen: [id number] Received: 07/29/22 Status: HUY Mejia Num: [id number] Spec Type: Surgical Subm Dr: Enrrique Grant MD Tissues: A Colon Biopsy (POLYP SIGMOID) Procedures: HE/2, Gross/Micro L4 Age/ Patient Sex Location Account Attending Physician Marly Jaffe 67/F [id number] Enrrique Grant MD SPEC NUM: [id number] RECD: 07/29/22 STATUS: HUY MEJIA NUM: [id number] SALOMON: 07/29/22- TORSTEN DR: Enrrique Grant MD ENTERED: 07/29/[address] [facility] DR: SPEC TYPE: Surgical DEPT: S ORDERED: [...] support the above pathologic diagnosis. CPT Codes 83546 Specimen: [id number] Received: 07/29/22 Status: HUY Jackie Num: [id number] Spec Type: Surgical Subm Dr: Enrrique Grant MD Tissues: A Colon Biopsy (POLYP SIGMOID) Procedures: HE/2, Gross/Micro L4 Patient: Marly Jaffe [id number] (Continued) Signed (signature on file) Benjamin Wolf MD 07/30/22 1133 Normal [facility] ECHOCARDIO M/2D COMPLETEon 0 07-13-2022 ECHOCARDIO M/2D COMPLETE Patient: MARLY JAFFE Exam Date: 07/13/2022 : 1955 Gender:F Ordering : KIERAN ElvaTeddy PETERSEN Admission #: [id number] Family : Order #: [id number] CLICK HERE TO VIEW EXAM ECHOCARDIOGRAM REPORT [...] Mak M.D. on 07/15/2022 at 10:33 Normal [facility] MG MAMM SCREEN 3D LAWRENCE CADon 06-23-2022 MG MAMM SCREEN 3D LAWRENCE CAD Patient: MARLY JAFFE Exam Date: 06/23/2022 : 1955 Gender:F Ordering : DR MERCY MORGAN . Admission #: [id number] Family : Order #: [id number] CLICK HERE TO VIEW EXAM RADIOLOGY REPORT [...] colon cancer at age 51. LOCATION: [facility] BREAST COMPOSITION: Scattered areas fibroglandular density. [...] Pugh M.D. on 06/23/2022 at 14:39 Normal [facility] PAP ACOG PANEL 2: 30 to 65on 06-23-2022 . . Normal [facility] Comment on above: Performed By: #### 4 [id number] #### [facility] [address] [place] [address] Dr. Jeramy Dumont Age Gdln ACOG Testing Comment Normal [facility] Comment on above: Result Comment: <21 or >65 or no age provided Performed By: #### 4 [id number] #### [facility] [address] [place] [address] Dr. Jeramy Dumont DIAGNOSIS: Comment [facility] Comment on above: Result Comment: NEGA TIVE FOR INTRAEPITHELIAL LESION OR MALIGNANCY. REACTIVE CELLULAR CHANGES AND/OR REPAIR ARE PRESENT. Performed By: #### 4 [id number] #### [facility] [address] [place] [address] Dr. Jeramy uDmont Electronically signed by: Comment Normal [facility] Comment on above: Result Comment: Bere Aguilar MD, Pathologist Performed By: #### 4 [id number] #### [place] [address] Dr. Jeramy Dumont Methodology: Comment [facility] Comment on above: Result Comment: This liquid based ThinPrep(R) pap test was screened with the use of an image guided system. Performed By: #### 4 [id number] #### [facility] [address] [place] [address] Dr. Jeramy Dumont Note: Comment [facility] Comment on above: Result Comment: The Pap smear is a screening test designed to aid in the detection of premalignant and malignant conditions of the uterine cervix. It is not a diagnostic procedure and should not be used as the sole means of detecting cervical cancer. Both false-positive and false-negative reports do occur. . Performed By: #### 4 [id number] #### [facility] [address] [place] [address] Dr. Jeramy Dumont Performed by: Comment Normal [facility] Comment on above: Result Comment: Norma Mancia Traffic Sign Erection Supervisor (ASCP) Performed By: #### 4 [id number] #### [facility] [address] [place] [address] Dr. Jeramy Dumont Specimen adequacy: Comment Normal [facility] Comment on above: Result Comment: Sati sfactory for evaluation. Endocervical and/or squamous metaplastic cells (endocervical component) are present. Performed By: #### 4 [id number] #### [facility] [address] [place] [address] [address] Jeramy Dumont XR DEXA BONE DENSITYon [...] ÁNGEL PUGH Date: 2022-06-23 11:[address] [facility] CBC AUTO DIFFon 04-27-2022 BASO # 0.1 103/ul Normal 0.0-0.1 [facility] Comment on above: Performed By: #### C BC ####[facility] [address] [place] [address]Dr. Jeramy Dumont Basophils/100 WBC (Bld) 0.6 % Normal 0.2-2.0 [facility] Comment on above: Performed By: #### C BC ####[facility] [address] [place] [address]DrTeddy Dumont EO # 0.2 103/ul Normal 0.0-0.7 [facility] Comment on above: Performed By: #### C BC ####[facility] [address] [place] [address]DrTeddy Dumont Eosinophils/100 WBC (Bld) 1.9 % Normal 0.9-7.0 [facility] Comment on above: Performed By: #### C BC ####[facility] [address] [place] [address]DrTeddy Dumont Erythrocyte distribution width (RBC) [Ratio] 13.3 % Normal 11.0-15.0 [facility] Comment on above: Performed By: #### C BC ####[facility] [address] [place] [address]Dr. Jeramy Dumont Hematocrit (Bld) [Volume fraction] 41.1 % Normal 36.0-48.0 [facility] Comment on above: Performed By: #### C BC ####[facility] [address] [place] [address]Dr. Jeramy Dumont Hemoglobin (Bld) [Mass/Vol] 13.4 g/dL Normal 12.0-16.0 [facility] Comment on above: Performed By: #### C BC ####[facility] [address] [place], [place] [address]Dr. Jeramy Tim IG # 0.02 10e3/ul Normal 0.00-0.03 [facility] Comment on above: Performed By: #### C BC ####[facility] [address] [place], [place] [address]Dr. Moniquelaura Dumont IG % 0.2 % Normal 0.0-0.5 [facility] Comment on above: Performed By: #### C BC ####[facility] [address] [place], [place] [address]Dr. Jeramy Tim LYMPH # 3.2 103/ul Normal 1.2-3.[address] [facility] Comment on above: Performed By: #### C BC ####[facility] [address] [place], [place] [address]Dr. Moniquelaura Dumont Lymphocytes/100 WBC (Bld) 39.1 % Normal 20.5-60.0 [facility] Comment on above: Performed By: #### C BC ####[facility] [address] [place], [place] [address]Dr. Moniquelaura Dumont MANUAL DIFF REQ NO Normal [facility] Comment on above: Performed By: #### C BC ####[facility] [address] [place], [place] [address]Dr. Moniquelaura Dumont MCH (RBC) [Entitic mass] 30.7 pg Normal 26.7-34.0 [facility] Comment on above: Performed By: #### C BC ####[facility] [address] [place] [address]Dr. Jeramy Tim MCHC (RBC) [Mass/Vol] 32.6 g/dL Normal 29.9-35.2 [facility] Comment on above: Performed By: #### C BC ####[facility] [address] [place] [address]Dr. Jeramy Tim MCV (RBC) [Entitic vol] 94.3 fL Normal 81.0-99.0 [facility] Comment on above: Performed By: #### C BC ####[facility] [address] [place], [place] [address]Dr. Jeramy Tim MONO # 0.6 103/ul Normal 0.3-0.8 [facility] Comment on above: Performed By: #### C BC ####[facility] [address] [place], [place] [address]Dr. Jeramy Dumont Monocytes/100 WBC (Bld) 6.6 % Normal 1.7-12.0 [facility] Comment on above: Performed By: #### C BC ####[facility] [address] [place], [place] [address]Dr. Jeramy Dumont NEUT # 4.3 103/ul Normal 1.4-6.5 [facility] Comment on above: Performed By: #### C BC ####[facility] [address] [place], [place] [address]Dr. Jeramy Dumont Neutrophils/100 WBC (Bld) 51.6 % Normal 43.0-75.0 [facility] Comment on above: Performed By: #### C BC ####[facility] [address] [place], [place] [address]Dr. Jeramy Dumont Platelet mean volume (Bld) [Entitic vol] 9.8 fL Normal 9.5-13.5 [facility] Comment on above: Performed By: #### C BC ####[facility] [address] [place], [place] [address]Dr. Jeramy Dumont PLT 283 103/ul Normal 150-[address] [facility] Comment on above: Performed By: #### C BC ####[facility] [address] [place] [address]Dr. Jeramy Dumont RBC 4.36 106/ul Normal 4.20-5.[address] [facility] Comment on above: Performed By: #### C BC ####[facility] [address] [place] [address]Dr. Jeramy Dumont WBC 8.3 103/ul Normal 4.0-11.[address] [facility] Comment on above: Performed By: #### C BC ####[facility] [address] [place] [address]Dr. Jeramy Dumont FREE T3on 04-27-2022 FREE T3 2.20 pg/mlL Normal 2.18-3.98 [facility] Comment on above: Performed By: #### F T3, TSH, BMP, LIVER ####[facility] [address] [place] [address]Dr. Jeramy Dumont FREE T4on 04-27-2022 Free T4 [Mass/Vol] 0.96 ng/dL Normal 0.76-1.46 [facility] Comment on above: Performed By: #### F T4 ####[facility] [address] [place] [address]Dr. Jeramy Dumont LIVER PROFILEon 04-27-2022 Albumin [Mass/Vol] 3.7 g/dL Normal 3.4-5.0 [facility] Comment on above: Performed By: #### F T3, TSH, BMP, LIVER #### [facility] [address] [place] [address] [address] Jeramy Dumont Albumin/Globulin [Mass ratio] 1.1 {ratio} Normal [facility] Comment on above: Performed By: #### F T3, TSH, BMP, LIVER #### [facility] [address] [place] [address] [address] Jeramy Dumont ALP [Catalytic activity/Vol] 64 U/L Normal 46-[address] [facility] Comment on above: Performed By: #### F T3, TSH, BMP, LIVER #### [facility] [address] [place] [address] [address] eJramy Dumont ALT [Catalytic activity/Vol] 28 U/L Normal 14-59 [facility] Comment on above: Performed By: #### F T3, TSH, BMP, LIVER #### [facility] [address] [place] [address] [address] Jeramy Dumont AST [Catalytic activity/Vol] 16 U/L Normal 15-37 [facility] Comment on above: Performed By: #### F T3, TSH, BMP, LIVER #### [facility] [address] [place] [address] Dr. Jeramy Dumont BILI, CONJUGATED 0.1 mg/dL Normal 0.0-0.2 [facility] Comment on above: Performed By: #### F T3, TSH, BMP, LIVER #### [facility] [address] [place] [address] Dr. Jeramy Dumont Bilirubin [Mass/Vol] 0.2 mg/dL Normal 0.2-1.0 [facility] Comment on above: Performed By: #### F T3, TSH, BMP, LIVER #### [facility] [address] [place] [address] Dr. Jeramy Dumont Globulin (S) [Mass/Vol] 3.5 g/dL Normal T [facility] Comment on above: Performed By: #### F T3, TSH, BMP, LIVER #### [facility] [address] [place] [address] Dr. Jeramy Dumont Protein [Mass/Vol] 7.2 g/dL Normal 6.4-8.2 [facility] Comment on above: Performed By: #### F T3, TSH, BMP, LIVER #### [facility] [address] [place] [address] Dr. Jeramy Dumont PROF CHEM 8 (BAS METB)on Anion gap [Moles/Vol] 10.3 mmol/L Normal [facility] Comment on above: Performed By: #### F T3, TSH, BMP, LIVER #### [facility] [address] [place] [address] Dr. Jeramy Dumont Calcium [Mass/Vol] 9.0 mg/dL Normal 8.5-10.1 [facility] Comment on above: Performed By: #### F T3, TSH, BMP, LIVER #### [facility] [address] [place] [address] [address] Jeramy Dumont Chloride [Moles/Vol] 105 mmol/L Normal 98-[address] [facility] Comment on above: Performed By: #### F T3, TSH, BMP, LIVER #### [facility] [address] [place] [address] [address] Jeramy Dumont CO2 [Moles/Vol] 30.7 mmol/L Normal 21.0-32.0 [facility] Comment on above: Performed By: #### F T3, TSH, BMP, LIVER #### [facility] [address] [place] [address] Dr. Jeramy Dumont Creatinine [Mass/Vol] 0.85 mg/dL Normal 0.55-1.02 [facility] Comment on above: Performed By: #### F T3, TSH, BMP, LIVER #### [facility] [address] [place] [address] Dr. Jeramy Dumont EGFR-AF OMANI >60 Normal >=60 [facility] Comment on above: Performed By: #### F T3, TSH, BMP, LIVER #### [facility] [address] [place] [address] Dr. Jeramy Dumont EGFR-NON AF OMANI >60 Normal >=[address] [facility] Comment on above: Performed By: #### F T3, TSH, BMP, LIVER #### [facility] [address] [address] [address] Jeramy Dumont Glucose [Mass/Vol] 101 mg/dL Normal 74-106 [facility] Comment on above: Performed By: #### F T3, TSH, BMP, LIVER #### [facility] [address] [place] [address] Dr. Jeramy Dumont Potassium [Moles/Vol] 4.0 mmol/L Normal 3.5-5.1 [facility] Comment on above: Performed By: #### F T3, TSH, BMP, LIVER #### [facility] [address] [place] [address] [address] Jeramy Dumont Sodium [Moles/Vol] 142 mmol/L Normal 136-145 [facility] Comment on above: Performed By: #### F T3, TSH, BMP, LIVER #### [facility] [address] [place] [address] [address] Jeramy Dumont Urea nitrogen [Mass/Vol] 15.0 mg/dL Normal 7.0-18.0 [facility] Comment on above: Performed By: #### F T3, TSH, BMP, LIVER #### [facility] [address] [place] [address] [address] Jeramy Dumont Urea nitrogen/Creatinine [Mass ratio] 17.6 mg/mg Normal [facility] Comment on above: Performed By: #### F T3, TSH, BMP, LIVER #### [facility] [address] [place] [address] [address] Jeramy Dumont TSHon 04-27-2022 TSH 0.960 uIU/mL Normal 0.358-3.740 [facility] Comment on above: Performed By: #### F T3, TSH, BMP, LIVER ####[facility] [address] [place] [address]Dr. Jeramy Dumont [facility]03 SARS-CoV-2 (COVID-19) RNA TRAVON+probe Ql (Unsp spec) Not detected Normal NOT DETECTED [facility] Comment on above: Result Comment: This test is not yet approved or cleared by the [place] FDA. When there are no FDA-approved or cleared tests available, and other criteria are met, FDA can make tests available under an emergency access mechanism called an Emergency Use Authorization (EUA). The EUA for this test is supported by the [place] of Health and Human Service's (HHS's) declaration [...] consistent with SARS-CoV-2. Performed By: #### [facility] ####[facility] [address] [place], [place] [address]AwTeddy Dumont Established Visit (Gastroent erology)on 04-30-2020 Established Visit (Gastroenterology) Diagnoses/Problems Assessed Chronic idiopathic constipation (564.00) (K59.04) Esophageal reflux (530.81) (K21.9) Orders Chronic idiopathic constipation Start: Amitiza 8 MCG Oral Capsule; Take 1 capsule twice daily Rx By: Kzrysztof Larkin; Dispense: 0 Days ; #:60 Capsule; Refill: 1;For: Chronic idiopathic constipation; ASHLYN = N; Verified Transmission to [facility] #[id number]; Last Updated By: [employer]; 04/30/2020 1:37:03 PM Esophageal reflux Renew: Omeprazole 20 MG Oral Capsule Delayed Release; TAKE 1 CAPSULE DAILY Rx By: Krzysztof Larkin; Dispense: 0 Days ; #:90 Capsule; Refill: 1;For: Esophageal reflux; ASHLYN = N; Verified Transmission to [id number]; Last Updated By: [employer]; 04/30/2020 1:37:11 PM Patient Discussion/Summary Change omeprazole [...] Daily Oral Tablet Vitals Vital Signs Recorded: [id number] 01:17PM Aunihpovnib51 F Height5 ft 3 in Rkmmgb885 lb BMI Ocqqtislpn13.74 BSA Calculated1.63 Physical Exam Constitutional General appearance: [...] Normal Touchworks MRI BRAIN WO/W IVCONon 02-13 [facility] C-Reactive Proteinon 019 CRP mass conc mg/L Normal 0.0-0.4 [facility] Comment on above: Performed By: #### C BCDIF, CRP #### [address], [place] [address] #### WSR #### [facility] [address] [place] [phone] CBC and Differentialon 10-31 Abs Baso 0.05 k/uL Normal <0.11 [facility] Comment on above: Performed By: #### C BCDIF, CRP #### [address] [place] [address] #### WSR #### [facility] [address] [place] [phone] Abs [place] 0.49 k/uL Normal <0.87 [facility] Comment on above: Performed By: #### C BCDIF, CRP #### [place] [id number] [facility], [place] [address] #### WSR #### [facility] [address] [place] [phone] Abs Neut 6.28 k/uL Normal 1.45-7.50 [facility] Comment on above: Performed By: #### C BCDIF, CRP #### [address] [place] [address] #### WSR #### [facility] [address] [place] [phone] Absolute nRBC <0.01 Normal <0.01 [facility] Comment on above: Performed By: #### C BCDIF, CRP #### [address] [place] [address] #### WSR #### [facility] [address] [place] [phone] Basophils/100 WBC (Bld) 0.6 % Normal [facility] Comment on above: Performed By: #### C BCDIF, CRP #### [address] [place] [address] #### WSR #### [facility] [address] [place] [phone] DTYPE Auto Diff [facility] Comment on above: Performed By: #### C BCDIF, CRP #### [address] [place] [address] #### WSR #### [facility] [address] [place] [phone] Eosinophils #/vol (Bld) 0.08 10*3/uL Normal <0.46 [facility] Comment on above: Performed By: #### C BCDIF, CRP #### [address] [place] [address] #### WSR #### [facility] [address] [place] [phone] Eosinophils/100 WBC (Bld) 0.9 % Normal [facility] Comment on above: Performed By: #### C BCDIF, CRP #### [address] [place] [address] #### WSR #### [facility] [address] [place] [phone] Erythrocyte distribution width Ratio (RBC) 13.5 % Normal 11.5-15.0 [facility] Comment on above: Performed By: #### C BCDIF, CRP #### [address] [place] [address] #### WSR #### [place] [address] [place] [phone] Hematocrit Volume Fraction (Bld) 42.3 % Normal 36.0-46.0 [facility] Comment on above: Performed By: #### C BCDIF, CRP #### [phone] #### WSR #### [place] [address] [place] [phone] Hemoglobin mass conc (Bld) 14.0 g/dL Normal 11.5-15.5 [facility] Comment on above: Performed By: #### C BCDIF, CRP #### [address] [place] [address] #### WSR #### [facility] [address] [place] [phone] Lymphocytes #/vol (Bld) 2.07 10*3/uL Normal 1.00-4.00 [facility] Comment on above: Performed By: #### C BCDIF, CRP #### [address] [place] [address] #### WSR #### [facility] [address] [place] [phone] Lymphocytes/100 WBC (Bld) 23.1 % Normal [facility] Comment on above: Performed By: #### C BCDIF, CRP #### [address] [place] [address] #### WSR #### [facility] [address] [place] [address] MCH Entitic mass (RBC) 31.1 pG Normal 26.0-34.0 [facility] Comment on above: Performed By: #### C BCDIF, CRP #### [address] [place] [address] #### WSR #### [place] [address] MCHC mass conc (RBC) 33.1 g/dL Normal 30.5-36.0 [facility] Comment on above: Performed By: #### C BCDIF, CRP #### [address] [place] [address] #### WSR #### [facility] [address] [place] [address] MCV Entitic volume (RBC) 94.0 fL Normal 80.0-100.0 [facility] Comment on above: Performed By: #### C BCDIF, CRP #### [address] [facility] #### WSR #### [facility] [address] [place] [address] Monocytes/100 WBC (Bld) 5.5 % Normal [facility] Comment on above: Performed By: #### C BCDIF, CRP #### [address] [place] [address] #### WSR #### [facility] [address] [place], [place] [address] Neutrophils/100 WBC (Bld) 69.9 % Normal [facility] Comment on above: Performed By: #### C BCDIF, CRP #### [facility] [id number] [place] [address]., [facility] #### WSR #### [facility] [address] [place] [address] NRBCs 0.0 /100 WBC Normal 0 [facility] Comment on above: Performed By: #### C BCDIF, CRP #### [address] [place] [address] #### WSR #### [place] [address] Platelet mean volume Entitic volume (Bld) 9.5 fL Normal 9.0-12.7 [facility] Comment on above: Performed By: #### C BCDIF, CRP #### [address] [place] [address] #### WSR #### [place] [address] Platelets #/vol (Bld) 279 10*3/uL Normal 150-400 [facility] Comment on above: Performed By: #### C BCDIF, CRP #### [address] [place] [address] #### WSR #### [place] [address] [place] [address] RBC #/vol (Bld) 4.50 10*6/uL Normal 3.90-5.20 [facility] Comment on above: Performed By: #### C BCDIF, CRP #### [address] [facility] #### WSR #### [facility] [address] [place], [place] [address] WBC #/vol (Bld) 8.97 10*3/uL Normal 3.70-11.00 [facility] Comment on above: Performed By: #### C BCDIF, CRP #### [facility] [address] [place] [address] #### WSR #### [facility] [address] [place], [place] [address] ED NOTEon 10-31-2018 ED NOTE HNO ID: [id number] Author: Erwin Dye MD Service: Emergency Medicine Author Type: Physician Type: ED Notes Filed: 11/03/2018 2:16 PM Note Text: Doing better, followed up with spine [facility] ED NOTE HNO ID: [id number] Author: Vasquez BariesRn) STEVE Winchester Service: ? Author Type: Registered [...] - notify physician of changes in condition [facility] ED NOTE HNO ID: [id number] Author: Lubna BairesRn) STEVE Dumont Service: ? Author Type: Registered Nurse Type: ED Notes Filed: 10/31/2018 9:08 AM Note Text: Bed: ED-15 Expected date: Expected time: Means of arrival: Comments: Trice [facility] ED PROV NOTEon 10-31-2018 Protein mass conc HNO ID: [id number] Author: Erwin Dye MD Service: Emergency Medicine [...] has TENS unit at home. Evaluated by campaign management specialist earlier today who advised her to [...] MD Erwin Zarco MD 10/31/18 1421 Normal [facility] Sed Rate Westergrenon 2018 Sed Rate Westergren 8 mm/hr Normal 0-20 [facility] Comment on above: Performed By: #### C BCDIF, CRP #### [facility] [address] [place] [address] #### WSR #### [facility] [address] [place], [place] [address] Dermatopathologyon 9 Dermatopathology Pathologist: SETH BERNAL MD Date of Procedure: 09/12/2018 Date Received: 09/13/2018 Date Reported 09/14/2018 Submitting Physician: KEILY CRAIN MD Location: [facility] FINAL DIAGNOSIS SKIN, RIGHT SIKHISM, EXCISION: CHANGES CONSISTENT WITH PREVIOUS PROCEDURE, PRESENT ON THE DEEP AND PERIPHERAL MARGIN WITHOUT RESIDUAL SQUAMOUS CELL CARCINOMA SEEN. Electronically Signed Out by SETH BERNAL M.D. Electronically Signed Out By SETH BERNAL MD/[facility] Microscopic Description: Microscopic examination reveals a specimen that extends into the subcutaneous fat. An area with horizontally oriented collagen and vertically oriented vessels is present. 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 Specimens Submitted As: A: SKIN, RIGHT SIKHISM Gross Description: Received in formalin is a craig piece of skin measuring 16 x 5 x 1 mm. Inked and embedded in toto in two blocks. [facility]/09/13/2018 Normal [facility] Comment on above: Performed By: #### D #### Dermatopathology Dermatopathologyon 9 Dermatopathology Pathologist: SETH BERNAL MD Date of Procedure: 07/11/2018 Date Received: 07/12/2018 Date Reported 07/13/2018 Submitting Physician: KEILY CRAIN MD Location: [facility] FINAL DIAGNOSIS A. 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 B. SKIN, RIGHT SIKHISM, BIOPSY: CONSISTENT WITH INVASIVE SQUAMOUS CELL CARCINOMA, WELL DIFFERENTIATED, PRESENT ON THE DEEP MARGIN, SEE NOTE. Note: Microscopic examination reveals a specimen that extends into the superficial dermis. There are areas of invagination of the epidermis with a slight downward bulbous growth pattern. There is mild to moderate solar elastosis. Electronically Signed Out by SETH BERNAL M.D. Electronically Signed Out By SETH BERNAL MD/[facility] Microscopic Description: A. 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 Clinical History: A: NAD. B: ISK vs. SCC. Specimens Submitted As: A: SKIN, RIGHT PHAM B: SKIN, RIGHT SIKHISM Gross Description: A: Received in formalin is a craig-brown piece of skin measuring [id number]. The specimen is inked and embedded in toto. B: Received in formalin is a craig piece of skin measuring [id number]. The specimen is inked and embedded in toto. ink/07/12/2018 Normal [facility] Comment on above: Performed By: #### D #### Dermatopathology Vital Signs Date Time Vital Sign Value Performing Clinician Facility 06-02-2023 13:15-0500 Body height 160.02 cm Sharonda Calix Other [facility] Other 06-02-2023 13:15-0500 Body mass index (BMI) [Ratio] 23.27 kg/m2 Sharonda Calix Other [facility] Other 06-02-2023 13:15-0500 Body temperature 96.9 [degF] Sharonda Calix Other [facility] Other 06-02-2023 13:15-0500 Body weight 59.6 kg Sharonda Calix Other [facility] Other 06-02-2023 13:15-0500 Diastolic blood pressure 79 mm[Hg] Sharonda Calix Other [facility] Other 06-02-2023 13:15-0500 SaO2% (BldA) [Mass fraction] 95 % Sharonda Calix Other [facility] Other 06-02-2023 13:15-0500 Systolic blood pressure 120 mm[Hg] Sharonda Calix Other [facility] Other 03-17-2023 11:00-0400 Body height 167.64 cm Enrrique Grant Other [facility] Other 09-17-2022 11:00-0400 Body mass index (BMI) [Ratio] 20.98 kg/m2 Enrrique Grant Other [facility] Other 09-17-2022 11:00-0400 Body weight 58.97 kg Enrrique Grant Other [facility] Other 09-17-2022 11:00-0400 Diastolic blood pressure 97 mm[Hg] Enrrique Grant Other [facility] Other 09-17-2022 11:00-0400 Systolic blood pressure 139 mm[Hg] Enrrique Grant Other [facility] Other 07-29-2022 12:11-0500 Diastolic blood pressure 84 mm[Hg] MD Jameel Manzanares Work Phone: [facility] 07-29-2022 12:11-0500 Heart rate 71 /min MD Jameel Manzanares Work Phone: [facility] 07-29-2022 12:11-0500 Respiratory rate 16 /min MD Jameel Manzanares Work Phone: [facility] 07-29-2022 12:11-0500 SaO2% (BldA) [Mass fraction] 96 % MD Jameel Manzanares Work Phone: [facility] 07-29-2022 12:11-0500 Systolic blood pressure 120 mm[Hg] MD Jameel Manzanares Work Phone: [facility] 07-29-2022 09:45-0500 Body height 160.02 cm MD Jameel Manzanares Work Phone: [facility] 07-29-2022 09:45-0500 Body temperature 98.4 [degF] MD Jameel Manzanares Work Phone: [facility] 07-29-2022 09:45-0500 Body weight 58.96 kg MD Jameel Manzanares Work Phone: [facility] Encounters Encounter Date Encounter Type Care Provider Facility Start: 12-22-2023 ambulatory [facility] Start: 12-22-2023 ambulatory [facility] Start: 12-01-2023 End: 12-01-2023 [facility] Start: 11-15-2023 ambulatory KIERAN FITZGERALDCKO [facility] Start: 09-05-2023 End: 09-05-2023 ambulatory SHAAN H TIMMIS Not Available Start: 08-26-2023 End: 08-26-2023 ambulatory Sharonda Calix Other [facility] Other Start: 08-26-2023 Telephone encounter Sharonda Calix [facility] Start: 08-18-2023 End: 08-19-2023 ambulatory Shaan H Timmis [facility] Start: 07-06-2023 End: 07-06-2023 ambulatory SHAAN H TIMMIS Not Available Start: 07-06-2023 End: 08-11-2023 Pre-admission assessment Shaan H Timmis [facility] Start: 06-21-2023 End: 06-21-2023 ambulatory Sharonda Calix Other [facility] Other Start: 06-21-2023 Telephone encounter Sharonda Calix [facility] Start: 06-20-2023 Telephone encounter Sharonda Calix [facility] Start: 06-20-2023 End: 06-20-2023 ambulatory JOSE [facility] Other Start: 06-17-2023 End: 06-17-2023 ambulatory Sharonda Calix Other [facility] Other Start: 06-17-2023 Telephone encounter Sharonda Calix [facility] Start: 06-06-2023 End: 06-06-2023 ambulatory Sharonda Calix Other [facility] Other Start: 06-06-2023 Telephone encounter Sharonda Calix [facility] Start: 06-02-2023 End: 06-02-2023 ambulatory Sharonda Calix Other [facility] Other Start: 06-02-2023 Office outpatient visit 25 minutes Sharonda Calix [facility] Start: 05-19-2023 Nursing evaluation o f patient and report Sharonda Calix [facility] Start: 05-19-2023 End: 05-19-2023 [facility] Start: 04-26-2023 End: 04-26-2023 ambulatory [facility] Start: 02-16-2023 End: 02-16-2023 ambulatory [facility] Start: 01-12-2023 End: 01-12-2023 ambulatory [facility] Start: 10-21-2022 End: 10-22-2022 ambulatory AAKASH CALIX . Facility:[facility] Start: 09-17-2022 End: 09-17-2022 ambulatory Enrrique Grant Other [facility] Other Start: 09-17-2022 Office outpatient visit 15 minutes Enrrique Grant [facility] Start: 08-04-2022 End: 08-05-[address] ÁNGEL PUGH Facility:[facility] Start: 07-29-2022 End: 07-29-2022 ambulatory Enrrique Grant Facility:[facility] Start: 07-29-2022 End: 07-29-2022 Admission to same day surgery center MD Jameel Manzanares Work Phone: [facility] Work Phone: Start: 07-29-2022 End: 07-29-2022 ambulatory MD Jameel Manzanares Work Phone: [facility] Work Phone: Start: 07-13-2022 End: 07-14-2022 ambulatory KIERAN PETERSEN Facility:[facility] Start: 06-23-2022 End: 06-24-[address] MERCY MORGAN . Facility:[facility] Start: 06-16-2022 ambulatory Jyoti García MD Work Phone: [facility] [place] Start: 06-11-2022 End: 06-11-[address] MERCY MORGAN . Facility:[facility] Start: 05-07-2022 Refill Jyoti García MD Work Phone: Internal Medicine Comment on above: Refill Request Start: 05-06-2022 ambulatory SWEETIE ROBERTS . Facility:[facility] Start: 04-30-2022 End: 05-01-[address] JAMEEL MANZANARES Facility:[facility] Start: 04-27-2022 End: 04-28-[address] JAMEEL MANZNAARES Facility:[facility] Start: 02-10-2022 End: 02-11-2022 ambulatory SWEETIE ROBERTS . Facility:[facility] Start: 01-31-2022 Refill Jojo Wesley OD Work Phone: Ophthalmology Comment on above: Refill Request Start: 11-26-2021 End: 11-27-2021 ambulatory SWEETIE ROBERTS . Facility:[facility] Start: 10-28-2021 Encounter for preprocedural laboratory examination DR ANTONELLA WAYNE . [facility] Start: 10-27-2021 End: 10-27-[address] ANTONELLA WAYNE . Facility:[facility] Start: 10-26-2021 End: 10-27-2021 Encounter for preprocedural laboratory examination DR ANTONELLA WAYNE . Facility:[facility] Start: 10-26-2021 End: 10-27-[address] ANTONELLA WAYNE . Facility:[facility] Start: 04-30-2020 [facility] Work Phone: Start: 02-14-2020 End: 02-14-2020 Subsequent hospital visit by physician [employer] [facility] (I-Stat/1.5t) Radiology Comment on above: Chronic mixed headac he syndrome [G44.89] Start: 10-31-2018 End: 10-31-2018 Emergency department patient visit [facility] Start: 08-25-2018 [facility] Work Phone: Start: 11-02-2017 Patient encounter procedure Rami [facility] Work Phone: Start: 10-21-2017 Patient encounter procedure Rami [facility] Work Phone: Procedures Date [...] panel - Serum or Plasma Lipid Screening [facility] Start: 09-11-2024 LIPID SCREEN LIPID SCREEN [facility] Start: 03-04-2023 Influenza vaccination Influenza Vacc ine (#1) [facility] Start: 09-11-2022 DIABETES SCREEN DIABETES SCREEN [facility] Start: 09-11-2022 Diabetes Screening Diabetes Screenin g [facility] Start: 07-29-2022 [facility] Start: 07-04-2022 Advance Directive Discussion Advance Directive Discussion [facility] Start: 07-04-2022 Colonoscopy COLONOSCOPY [facility] Start: 07-04-2022 COLORECTAL CANCER SCREENING COLORECTAL CANCER SCREENING [facility] Start: 07-04-2022 Depression Assessment Depression Ass essment [facility] Start: 03-04-2022 Influenza vaccination INFLUENZA (#1) [facility] Start: 08-13-2021 Adult depression screening assessment DEPRESSION SCREENING [facility] Start: 07-04-2021 ADVANCE DIRECTIVE DISCUSSION ADVANCE DIRECTIVE DISCUSSION [facility] Start: 07-04-2021 DEPRESSION ASSESSMENT DEPRESSION ASS ESSMENT [facility] Start: 03-30-2021 Urine microalbumin profile [facility] Start: 09-12-2019 Mammography [facility] Start: 2016 RSV Vaccine (1 - 1-d ose 60+ series) RSV Vaccine (1 - 1-dose 60+ series) [facility] Start: 05-23-2014 Pneumococcal Vaccine : 65+ (2 - PCV) Pneumococcal Vaccine: 65+ (2 - PCV) [facility] Start: 05-23-2014 PNEUMOCOCCAL: 65+ (2 - PCV) PNEUMOCOCCAL: 65+ (2 - PCV) [facility] Start: 11-30-2013 FECAL OCCULT BLOOD FECAL OCCULT BLOO D [facility] Start: 2006 SHINGRIX VACCINE (1 of 2) SHINGRIX VACCINE (1 of 2) [facility] Start: 2001 COLOGUARD (FIT-DNA) COLOGUARD (FIT-D NA) [facility] Start: [address] COLONOGRAPHY [facility] Start: 2001 SIGMOIDOSCOPY SIGMOIDOSCOPY [facility] Start: 1955 COVID-19 VACCINE (#1) COVID-19 VACCI NE (#1) [facility] End: 07-16-2023 DOLORES SCREENING DOLORES SCREENING Radiology Routine Encounter for screening mammogram for breast cancer 1 Occurrences starting 06/16/2022 until 07/16/2023 [place] Work Phone: Comment on above: 1 Occurrences starti ng 06/16/2022 until 07/16/2023 Patient Education Hemorrhoids Co desean Polyps Diverticulosis (DC) [facility] Work Phone: Immunizations Immunization Date Immunization Notes Care Provider Cierra christian 05-19-2023 influenza, high dose seasonal, preservative-free Sharonda Michele Other [facility] Other 06-19-2020 influenza, injectabl e, quadrivalent, contains preservative Jojo Foster OD Work Phone: [facility] 06-19-2020 influenza virus vacc ine, unspecified formulation Mri (I-Stat/1.5t) [facility] 09-11-2019 influenza, injectabl e, quadrivalent, contains preservative Jojo Wesley OD Work Phone: [facility] 09-11-2019 zoster vaccine, recombinant, adjuvanted, (SHINGRIX, PF,) 50 mcg/0.5 mL injection Mri (I-Stat/1.5t) [facility] Work Phone: Comment on above: Inject 0.5 mL intram uscularly now and repeat 2nd dose in 2-6 months 03-28-2017 influenza, injectabl e, quadrivalent, contains preservative Jojo Wesley OD Work Phone: [facility] 08-12-2016 influenza, injectabl e, quadrivalent, preservative free Jojo Foster OD Work Phone: [facility] Work Phone: 04-14-2015 influenza, injectabl e, quadrivalent, preservative free Jojo Foster OD Work Phone: [facility] Work Phone: 05-23-2013 influenza virus vacc ine, unspecified formulation Jojo Foster OD Work Phone: [facility] 05-23-2013 pneumococcal polysaccharide vaccine, 23 valent Jojo Wesley OD Work Phone: [facility] 04-13-2012 influenza virus vacc ine, unspecified formulation Jojo Foster OD Work Phone: [facility] 03-30-2011 tetanus toxoid, redu rukhsana diphtheria toxoid, and acellular pertussis vaccine, adsorbed Jojo Foster OD Work Phone: [facility] Payers Date Payer Category Payer Self-pay 2019 Unknown [employer] PPO OOS [id number] 2019-Present [phone] [address] [place] [address] PPO [id number] 2019 Unknown [employer] PPO OOS [id number] 2019-Present [phone] [address] [place] [address] PPO [id number] 1959 Private Health Insurance [facility] [id number] 1956 Unknown [id number] [id number] 1956 Unknown [id number] 2.16.840.1.280673.3.579.2.5 1956 Unknown [id number] 2.16.840.1.347625.3.579.2.5 1956 Unknown [id number] 2.16.840.1.203583.3.579.2.5 1956 Unknown [id number] 2.16.840.1.234061.3.579.2.5 1956 Unknown [id number] 2.16.840.1.925476.3.579.2.5 1956 Unknown [id number] 2.16.840.1.644015.3.579.2.5 1956 Unknown [id number] 2.16.840.1.894504.3.579.2.5 1956 Unknown [id number] 2.16.840.1.023178.3.579.2.5 93 1956 Unknown [id number] 2.16.840.1.155026.3.579.2.5 93 1956 Unknown [id number] 2.16.840.1.163935.3.579.2.5 93 1956 Unknown [id number] 2.16.840.1.699588.3.579.2.5 93 1956 Unknown [id number] 2.16.840.1.799159.3.579.2.5 93 1956 Unknown [id number] 2.16.840.1.375491.3.579.2.1 259 1956 Unknown [id number] 2.16.840.1.691110.3.579.2.7 27 1956 Unknown [id number] 2.16.840.1.292011.3.579.2.1 259 Unknown [id number] 2.16.840.1.051603.3.579.2.5 31 Social History Date Type Detail Facility [facility]04-[facility] Start: 07-04-1985 History of tobacco use Cigarette Smo ker [facility] Start: 01-29-2020 End: 10-20-2020 Alcohol intake Current drinker of alcohol (finding) [facility] Start: 01-18-2020 End: 02-28-2020 History SDOH Alcohol Frequency 2 [facility] Start: 01-18-2020 End: 02-28-2020 History SDOH Alcohol Std Drinks 1 [facility] Start: 07-25-2014 History SDOH Alcohol Comment 1 drink per year [facility] Start: 09-11-2019 End: 01-18-2020 History SDOH Social Connections Phone 3 [facility] Start: 01-18-2020 History SDOH Physica l Activity DPW 5 [facility] Start: 09-11-2019 Education 15 [facility] Start: 09-11-2019 Tobacco Comment current 0.5-1ppd [facility] Start: 1955 Sex Assigned At Female C [facility] Start: 09-11-2019 End: 01-18-2020 Cigarettes smoked current (pack per day) - Reported 0.8 [facility] Start: 09-11-2019 Tobacco use and exposure Smoke less tobacco non-user [facility] Work Phone: Start: 07-29-2022 Tobacco smoking stat us NHIS Smoker (finding) [facility] Start: 09-11-2019 End: 01-18-2020 Sex Assigned At [facility] Frequency of Communication with Friends and Family Not on file [facility] Do you belong to any clubs or organizations such as jainism groups, unions, fraternal or athletic groups, or school groups? Yes [facility] How often to you hav e a drink containing alcohol? Monthly or less [facility] How many standard dr inks containing alcohol do you have on a typical day? 1 or 2 [facility] How often do you hav e 6 or more drinks on 1 occasion? Never [facility] Do you feel stress - tense, restless, nervous, or anxious, or unable to sleep at night because your mind is troubled all the time - these days [OSQ] Only a little [facility] (I/We) worried whebeto er (my/our) food would run out before (I/we) got money to buy more. Never true [facility] In the past 12 month s, was there a time when you were not able to pay the mortgage or rent on time? No [facility] Start: 11-17-2018 Gender identity Identifies as female gender (finding) [facility] Start: 11-17-2018 Sexual orientation Choose not to disclose [facility] Start: 01-15-2020 End: 02-14-2020 Exposure to SARS-CoV-2 (event) Not sure [facility] Tobacco smoking status No Smokin g Status Entered [facility] NEGATED: Highlighted row - Current every day smoker [facility] Work Phone: Goals Date Patient Goal Desired Activity /State Functional Status Date Assessment Result Facility NEGATED: Highlighted row Functional performance Functional status health issues are not documented Disease [facility] Work Phone: Mental Status Date Assessment Result Facility NEGATED: Highlighted row Cognitive function [Interpretation] Cognitive status health issues are not documented Disease [facility] Work Phone: Clinical Notes 06-05-2012 to 12-01-2023 Note Date & Type Note Facility 12-01-2023 Note [place] [facility] - [facility] Subjective Marly Jaffe is a [...] breathing, no ral (more content not included)... [facility] 12-01-2023 Note Patient here for 6 m [...] All other systems reviewed and are negative. [facility] 06-21-2023 Evaluation note Encounter Date Diagnosis Assessment Notes Jun, Post-nasal drainage (ICD-10 - R09.82) [facility] Other [id number] NoteUT Cardiology Consult Note Reason for visit: [...] prior to visit. ROS: (more content not included)...[facility]12-18-2023 NotePatient here for 1 mo follow up [...] cough. All other systems reviewed and are negative.[facility] 06-02-2023 Evaluation note* Encounter Date Diagnosis Assessment [...] Imaging and consider ENT referral if needed. [facility] Other 11-22-2023 NotePatient Outreach (INTMMN) MARLY JAFFE ([id number]) 1955 F Date Time Provider Department 05/25/23 [...] for screening mammogram for breast cancer [Z12.31] Order(s):[facility] SCREENING [[id number]] Order #: [id number] FUTURE Prescriptions as of 05/30/2023 - travoprost [...] at bedtime as needed. - MV with Qey-Cvezucen-Sogpdx (CENTRUM SILVER) 0.4-300-250 mg-mcg-mcg tab Take 1 [...] (DM) [Z83.3] Postmenopausal atrophic vaginitis [N95.2] Dyspareunia [WLP5165] 11/04/2017 Tobacco user [Z72.0] 05/03/2013 Symptomatic menopausal or female climacteric st* Screening breast examination [Z12.39] 03/30/2011 08/02/2011 Constipation [K59.00] Abnormal mammogram [R92.8] 08/02/2011 11/04/2017 Elevated BP [CCP1408] 08/02/2011 Chest pain [R07.9] 09/17/2011 05/03/2013 Tobacco dependency [F17.200] 09/17/2011 Family history of early CAD [Z82.49] 09/17/2011 Syncope [R55] 09/17/2011 Postmenopausal HRT (hormone replacement therapy*06/05/2012 Screening breast examination [Z12.39] 06/05/2012 05/03/2013 Elevated IOP [H40.059] 05/03/2013 Multiple thyroid nodules [E04.2] 05/03/2013 Family history of colon cancer [Z80.0] 03/28/2017 Smoker [F17.200] 05/03/2017 Bilateral wrist pain [M25.531, M25.532] 07/14/2017 Encounter Status:Closed by [employer] on 05/30/23[facility] 05-19-2023 Evaluation note* Encounter Date Diagnosis Assessment Notes Treatment Notes Treatment Clinical Notes May, Allergic rhinitis, unspecified seasonality, unspecified trigger (ICD-10 - J30.9) [facility] Other 11-16-2023 NoteLOOP IMPLANT PROCEDURE NOTE DATE OF PROCEDURE: 05/19/23 PERFORMING PHYSICIAN: Dr. Kieran Petersen PRODUCTION DIRECTOR: LIZ INDICATIONS FOR PROCEDURE: 1. SVT/AF surveillance [...] the sternum on the left using the Hoffmeister Leuchten tool. The loop recorder was then injected [...] wet the incision. Kieran Petersen MD Cardiac Electrophysiology.[facility]10-24-2023 NoteUT Cardiology Consult Note Reason for visit: [...] affect Orientation: oriented to (more content not included)...[facility]08-16-2023 NoteUT Cardiology Consult Note Reason for [...] Carotid Arteries: bilateral n (more content not included)...[facility]07-12-2023 NotePatient is here today for a 1 month follow up Review of Systems Cardiovascular: Positive for chest pain, irregular heartbeat and palpitations. All other systems reviewed and are negative.[facility] 01-12-2023 NoteUT Cardiology Consult Note Reason for [...] GERD (gastroesophageal reflux disease) SVT (supraventricular tachycardia) ([facility]) PSH: Past Surgical History: Procedure Laterality Date [...] Constitutional General Appearance: well-no (more content not included)...[facility]04-20-2023 NoteCONSULTATION CONSULTATION DATE: 10/21/2022 TO: Jameel Manzanares [...] our patients to inform us about any bywb-xjk-oqiibik medications or herbal remedies/nutritional supplements/alternative remedies. 2. [...] treatment options with their primary care provider.[id number] Evaluation note * Encounter Date Diagnosis Assessment Notes Treatment Notes Treatment Clinical Notes Sep, Constipation (ICD-10 - K59.00) Sep, Diverticulosis (ICD-10 - K57.90) Sep, Hemorrhoids (ICD-10 - K64.9) Sep, Other Repeat colonoscopy in 5 yrs [facility] Other [facility] NotePatient Outreach (INTMMN) MARLY JAFFE ([id number]) 1955 F Date Time Provider Department 06/16/22 [...] for screening mammogram for breast cancer [Z12.31] Order(s):[facility] SCREENING [[id number]] Order #: [id number] FUTURE Prescriptions as of 06/21/2022 - omeprazole [...] at bedtime as needed. - MV with Iwi-Iivajpar-Whkrou (CENTRUM SILVER) 0.4-300-250 mg-mcg-mcg tab Take 1 [...] (DM) [Z83.3] Postmenopausal atrophic vaginitis [N95.2] Dyspareunia [KSF7998] 11/04/2017 Tobacco user [Z72.0] 05/03/2013 Symptomatic menopausal or female climacteric st* Screening breast examination [Z12.39] 03/30/2011 08/02/2011 Constipation [K59.00] Abnormal mammogram [R92.8] 08/02/2011 11/04/2017 Elevated BP [AHI2691] 08/02/2011 Chest pain [R07.9] 09/17/2011 05/03/2013 Tobacco dependency [F17.200] 09/17/2011 Family history of early CAD [Z82.49] 09/17/2011 Syncope [R55] 09/17/2011 Postmenopausal HRT (hormone replacement therapy*06/05/2012 Screening breast examination [Z12.39] 06/05/2012 05/03/2013 Elevated IOP [H40.059] 05/03/2013 Multiple thyroid nodules [E04.2] 05/03/2013 Family history of colon cancer [Z80.0] 03/28/2017 Smoker [F17.200] 05/03/2017 Bilateral wrist pain [M25.531, M25.532] 07/14/2017 Encounter Status:Closed by FOUZIA COLLADO on 06/21/22[facility] 05-07-2022 Miscellaneous Notes* Telephone Encounter - Judy Patel MA - 05/07/2022 7:21 AM EDT Pharmacy escribed requesting the following refill. Requested Prescriptions Pending Prescriptions Disp Refills omeprazole (PRILOSEC) 20 mg capsule [Pharmacy Med Name: OMEPRAZOLE DR 20 MG CAPSULE] 90 capsule 1 Sig: TAKE 1 CAPSULE BY MOUTH EVERY DAY Patient last appointment: 08/13/2020 Patient Phone numbers: [phone] (home) Request is for script(s) to be escript to pharmacy. Judy Patel MA [facility] NoteCONSULTATION CONSULTATION DATE: 02/10/2022 This is a [...] changes in the weather. 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 She denies [...] time and the patient is in agreement.[facility] [id number] NoteCONSULTATION CONSULTATION DATE: 11/26/2021 HISTORY OF PRESENT [...] Patient agrees with the plan of care. [facility] Signed and Approved by: SWEETIE ROBERTS . 12/03/2021 16:05:00[facility]08-13-2020 History of Present illness Narrative* Gail [...] 2020 TIME: 9:41 AM [facility] History of Past illness Narrative* Problem Noted Date Resolved Date Screening breast examination 06/05/2012 Chest pain 09/17/2011 05/03/2013 Abnormal mammogram 08/02/2011 11/04/2017 Screening breast examination 03/30/2011 Colon cancer screening 03/03/2009 2 Degeneration of lumbar or lumbosacral interverte bral disc 01/24/2009 10/22/2013 Dyspareunia 11/04/2017 Tobacco user 05/03/2013 documented as of this encounter (statuses as of 02/01/2022) [facility] History of Past illness Narrative* Problem Noted Date Resolved Date Screening breast examination 06/05/2012 Chest pain 09/17/2011 05/03/2013 Abnormal mammogram 08/02/2011 11/04/2017 Screening breast examination 03/30/2011 Colon cancer screening 03/03/2009 2 Degeneration of lumbar or lumbosacral interverte bral disc 01/24/2009 10/22/2013 Dyspareunia 11/04/2017 Tobacco user 05/03/2013 documented as of this encounter (statuses as of 05/07/2022) [facility] History of Past illness Narrative* Problem Noted Date Resolved Date Screening breast examination 06/05/2012 Chest pain 09/17/2011 05/03/2013 Abnormal mammogram 08/02/2011 11/04/2017 Screening breast examination 03/30/2011 Colon cancer screening 03/03/2009 2 Degeneration of lumbar or lumbosacral interverte bral disc 01/24/2009 10/22/2013 Dyspareunia 11/04/2017 Tobacco user 05/03/2013 documented as of this encounter (statuses as of 06/21/2022) [facility] History of Past illness Narrative* Problem Noted Date Diagnosed Date Resolved Date Screening breast examination 06/05/2012 05/03/2013 Chest pain 09/17/2011 05/03/2013 Abnormal mammogram 08/02/2011 8 Screening breast examination 03/30/2011 08/02/2011 Colon cancer screening 03/03/200908/02 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 01/24/2009 10/22/2013 Dyspareunia 11/04/2017 Tobacco user 05/03/2013 documented as of this encounter (statuses as of 05/08/2023) [facility] + Plan note No data available for this section [facility] Diagnosis Encounter for screening mammogram for breast cancer documented in this encounter [facility] note* Diagnosis Onset Date Resolution Status Encounter for screening colonoscopy [facility] Work Phone: Evaluation note* Diagnosis Chronic mixed headache syndrome Other headache syndromes documented in this encounter [facility] noteNo [employer] Other Hospital Discharge instructions Additional Instructions DISCHARGE [...] kiwi fruit Repeat colonoscopy in [address] [facility] 1 p.o. every morning -Notify the doctor if you have any problems. -Office number [phone] Work Phone: Hospital Discharge instructions No data available for this section [facility]* Name Dates Details Instructions not documented [facility] Work Phone: Progress note No data available for this section [facility] System[facility] for referral (narrative)* Diagnostic Procedure Only (Routine) - Pending Review Specialty Diagnoses / Procedures Referred By Zaid gutiérrez Referred To Contact [facility] Diagnoses Encounter for screening mammogram for breast cancer Procedures DOLORES SCREENING SCREENING MAMMOGRAPHY BI 2-[place] [address] [place] [address] [facility] [address] [place] [address] Referral ID Status Reason Start Date Expiration Date Visits Requested Visits Authorized [id number] Pending Review Auto-Generat ed Referral 2 07/16/2023 1 1 [facility] for [facility] Diagnostic Procedure Only (Routine) - Closed Specialty Diagnoses / Procedures Referred By Zaid gutiérrez Referred To Contact [facility] IMAGING Diagnoses Chronic mixed headache syndrome G44.89 (ICD-10-CM) - Chronic mixed headache syndrome Procedures MRI BRAIN WO/W IVCON MRI BRAIN COMBO MRI BRAIN WO/[place]CON Jyoti García [place] [address] [place] [address] [place] [address] Referral ID Status Reason Start Date Expiration Date V isits Requested Visits Authorized [id number] Closed Auto-Generate d Referral 02/11/2020 07/03/2020 1 1 [facility] Summary Purpose Family History No Family History Records Found Relationship Condition Age at Onset Recorded Date/T bishop brother Malignant neoplasm of colon Unknown sister Malignant neoplasm of bone Unknown sister Malignant neoplasm of pancreas Unknown Advance Directives No Advanced Directives Records FoundDocuments on File Type Date Recorded 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 Advance Directive(s) 10/31/2018 9:16 AM Advance Directive(s) 12/04/2012 9:42 PM Advance Directive(s) 11/29/2012 9:09 PM Documents on File Type Date Recorded 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 Advance Directive(s) 12/04/2012 9:42 PM Advance Directive(s) 11/29/2012 9:09 PM Documents on File Type Date Recorded 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 Advance Directive(s) 12/04/2012 9:42 PM [...] Diagnosis 1 Post-nasal drainage (R09.82) Referral Organization [facility] kaylah Referring Provider First Name Sharonda Referring Provider Last Name Michele Referring Provider Specialty Family [facility] cine Referred Organization [facility] Referred Provider Shaan Villalta Referred Address ,[place], [place],[address] Referred Provider Specialty Ear, Nose an d Throat Referral Priority Routine General Notes Inessa Vitale 02:51:01 PM >received today, notes locked, ins attached, referral faxed Additional Source Comments INFORMATION SOURCE (unrecogn ized section and content) DATE CREATED AUTHOR 11/12/2018 [facility] DATE CREATED AUTHOR AUTHOR'S ORGANIZ ATION 06/18/2019 [facility] DATE CREATED AUTHOR AUTHOR'S ORGANIZ ATION 05/01/2020 [facility] DATE CREATED AUTHOR AUTHOR'S ORGANIZ ATION 08/01/2022 [facility] DATE CREATED AUTHOR AUTHOR'S ORGANIZ ATION 10/26/2022 [facility] DATE CREATED AUTHOR AUTHOR'S ORGANIZ ATION 05/30/2023 [facility] DATE CREATED AUTHOR AUTHOR'S ORGANIZ ATION 07/07/2023 [facility] EPIC DATE CREATED AUTHOR AUTHOR'S ORGANIZ ATION 08/20/2023 [facility] DATE CREATED AUTHOR AUTHOR'S ORGANIZ ATION 09/06/2023 [facility] EPIC DATE CREATED AUTHOR AUTHOR'S ORGANIZ ATION 12/24/2023 [facility] Source Comments (unrecognize d section and content) In the event this informatio n is protected by the Federal Confidentiality of Alcohol and Drug Abuse Patient Records regulations: The Federal rules restrict any use of the information to criminally investigate or prosecute any alcohol or drug abuse patient.[facility] CenterIn the event this information is protected by the Federal Confidentiality of Alcohol and Drug Abuse Patient Records regulations: The Federal rules restrict any use of the information to criminally investigate or prosecute any alcohol or drug abuse patient.[facility] CenterIn the event this information is protected by the Federal Confidentiality of Alcohol and Drug Abuse Patient Records regulations: The Federal rules restrict any use of the information to criminally investigate or prosecute any alcohol or drug abuse patient.[facility] CenterIn the event this information is protected by the Federal Confidentiality of Alcohol and Drug Abuse Patient Records regulations: The Federal rules restrict any use of the information to criminally investigate or prosecute any alcohol or drug abuse patient.[facility] Reason for Visit (unrecogniz ed section and content) Reason Comments Refill Request Reason Comments Radiology MRI Specialty Diagnoses / Procedures Referred By Contac t Referred To Contact MR IMAGING Diagnoses Chronic mixed headache syndrome G44.89 (ICD-10-CM) - Chronic mixed headache syndrome Procedures MRI BRAIN WO/W IVCON MRI BRAIN COMBO MRI BRAIN WO/W [place]CON Jyoti García [place] [address] [place] [address] Mr [facility] [place] [id number] Referral ID Status Reason Start Date Expiration Date V isits Requested Visits Authorized [id number] Closed Auto-Generate d Referral 02/11/2020 07/03/2020 1 1 Care Teams (unrecognized sec tion and content) Aquatic Physiotherapist Relationship Specialty Start Date End Date Jyoti García [place] [address] [place] [address] PCP - General Internal Medicine 09/11/19 Aquatic Physiotherapist Relationship Specialty Start Date [place] Jyoti García [place] [address] [place] [address] PCP - General Internal Medicine 09/11/19 Aquatic Physiotherapist Relationship Specialty Start Date [place] Jyoti García [place] [address] [place] [address] PCP - General Internal Medicine 09/11/19 Team Status: Inactive Member Role Status Dates Enrrique Grant MD Attending Provider Active Jameel Manzanares MD Primary Care Provider Active Team Status: Active Member Role Status Dates Jameel Manzanares MD Primary Care Provider Active Aquatic Physiotherapist Relationship Specialty Start Date [place] Jyoti García [place] [address] [place] [address] PCP - General Internal Medicine 09/11/19 FOR [...] BE BASED ON THE PRIMARY CLINICAL RECORDS. [facility]. provides no warranty or guarantee of the accuracy or completeness of information in this document.
== END 2024-02-07 10:45 | disposition home or self-care (01) ==
LOC: RAD 10:45
PROVIDERS: PCP Family Medicine; Visit Provider Anesthesiology Pain Medicine
DX: M47.816 Spondylosis without myelopathy or radiculopathy, lumbar region (principal); M54.50 Low back pain, unspecified; M43.8X6 Other specified deforming dorsopathies, lumbar region
CPT/HCPCS: 72114

== ENCOUNTER 2024-02-16 08:33 | Outpatient (RCR) | payer MEDICARE, SELFPAY | END 2024-03-31 10:03 | disposition home or self-care (01) | LOC: PT 08:33 | PROVIDERS: PCP Family Medicine; Visit Provider Anesthesiology Pain Medicine | DX: M47.816 Spondylosis without myelopathy or radiculopathy, lumbar region (principal) | CPT/HCPCS: 97012; 97110; 97113; 97140; 97163 ==

== ENCOUNTER 2024-02-21 07:01 | Day surgery (SDC) | payer MEDICARE, SELFPAY ==
--- OUTSIDE RECORDS SUMMARY | 2024-02-21 07:04 | XMS_ITS | CCD ---
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 Name Role Phone ERWIN DYE Attending Unavailable Abbass, Rami Unavailable Unavailable Unknown, Referring Provider Unavailable Unav ailable Abbass, Rami Unavailable Unavailable Chaya PAUL, Rami Unavailable Unavailable Unknown, Referring Provider Unavailable Unav ailable Raquel PAUL, Jyoti Lugo Primary Care Provider Raquel PAUL, Jyoti Lugo Primary Care Provider Raquel PAUL, Jyoti Lugo Primary Care Provider MD Enrrique Grant Attending Provider [phone] MD Jameel Manzanares Primary Care Provider Enrrique Grant Attending Unavailabl Enrrique Brambila Admitting Unavailabl e Bryson, Jameel Primary Care Unavailable Enrrique Grant Unavailable [phone] ROSANA ., DR ANTONELLA Lugo Consulting Unavailable [...] Attending Amelia vailable LAKSHMIPATHY ., AAKASH Admitting Ameila vailable ROBERTS ., SWEETIE Consulting Unavailable NADERER, [...] Facility Prochlorperazine (1 source) Prochlorperazine Drug Allergy [facility] [employer] Work Phone: Sulfonamides (antibiotic) (1 source) Sulfonamides (Antibiotic) Drug Allergy [facility] [employer] Work Phone: (5 sources) Hydroxychloroquine; 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: [HYDROXYCHLOROQUINE SULFATE] Drug Allergy 006 Rash [facility] Repository (8 sources) Sulfonamides (Antibiotic); 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: [SULFA (SULFONAMIDE ANTIBIOTICS)] Propensity to adverse reactions to drug (disorder) Unknown Reaction [facility] Repository (6 sources) AMOXICILLIN-POT CLAVULANATE; 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: [AMOXICILLIN-POT CLAVULANATE] Propensity to adverse reactions to drug (disorder) 019 Rash [facility] Repository (5 sources) PROCHLORPERAZINE EDISYLATE; 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: [PROCHLORPERAZINE EDISYLATE] Propensity to adverse reactions to drug (disorder) 006 [facility] Repository (4 sources) Sulfonamides (Antibiotic) drug allergy [facility] [employer] Work Phone: (1 source) drug allergy [facility] [employer] Work Phone: (13 sources) Prochlorperazine; 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: [Compazine] Drug Allergy Unknown [facility] Repository (6 sources) Prochlorperazine; 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: [PROCHLORPERAZINE] Drug Allergy 006 Other: See Comments [facility] (5 sources) traMADol; 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: [TRAMADOL] Drug Allergy 019 Intolerance, GI Upset [facility] (1 source) Prochlorperazine Drug Allergy 023 [facility] Repository (9 sources) Sulfacetamide / Sulfur Drug Allergy Unknown [facility] Other (1 source) Sulfonamides (Antibiotic) Drug allergy (disorder) [facility] Repository (1 source) Hydroxychloroquine; 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: [HYDROXYCHLOROQUINE ] Drug Allergy 006 [facility] Repository Medications Current Medications Medication Drug Class(es) Dates Sig (Normalized) Sig (Original) [id number] 60 actuat albuterol 0.09 mg/actuat metered dose [...] Start: 03-28-2017 take 1 capsule by mo [facility] once daily Cholecalciferol, Vitamin D3, 2,000 unit [...] TAB PO Daily July 29, 2022 12:00am [place] 3 (9 sources) [place] 3 Active [place]-3 Fatty Acids (1 source) Start : 07-29 take 1000 mg by mouth once daily [place]-3 Fatty Acids Active 1000 MG PO Daily [...] on above: TAKE 1 CAPSULE BY MO [facility] EVERY DAY travoprost (13 sources) Prostaglandin [...] 12:00am Start: 07-07-2020 take 1 capsule by [facility] once daily coenzyme Q10 (CO Q-10) 100 mg cap capsule Take 1 capsule by mouth once daily. 0 07/07/2020 Active Comment on above: Take 1 capsule by [facility] once daily. Vitamin B Complex [...] Comment on above: Take 1 tablet by [facility] twice daily as needed for Muscle [...] Comment on above: Take 1 capsule by [facility] daily at bedtime for 30 days. [...] [facility] once daily. MV with Rvk-Lvhlijac-Gjgaud (CENTRUM SILVER) 0.4-300-250 mg-mcg-mcg tab (1 source) Start: 07-07-19 take 1 tablet by mouth once daily MV with Ing-Hlqryfwt-Jchozi (CENTRUM SILVER) 0.4-300-250 mg-mcg-mcg tab Take 1 [...] Other prison (current) drug therapy; 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: [OTH LONGTERM CURRENT DRUG THERAPY] Onset: 2 Episodic Other [...] Range Facility Office Visiton 12-01-2023 Follow-up visit [id number] Marly Jaffe 1955 F Date Provider Department Center 12/01/2023 [id number] WHALEN SUSANA [facility] Family History Problem Relation Age of Onset Stroke Mother Hypertension Mother Cancer Mother Stroke Father Other Father Family Status - Relation Status Age at Mother Father Level of Service:50018 [place] OFFICE/OUTPATIENT NEW LOW MDM 30 MINUTES Normal [facility] CT Maxillofacial w/o Contras ton 08-19-2023 CT [...] MD Transcribed by: CHRISTIAN Technologist: MARTELL Normal [facility] Consent for Treatmenton 08-04 Consent for Treatment [id number] #[id number] Normal [facility] Physician Orderon 07-08-2023 Physician Order [id number] #1.00TIFF Normal [facility] Office Visiton 06-20-2023 Follow-up visit [id number] Marly Jaffe 1955 F Date Provider Department Center 06/20/2023 [facility]SE [facility] Family History Problem Relation Age of Onset Stroke Mother Hypertension Mother Cancer Mother Stroke Father Other Father Family Status - Relation Status Age at Mother Father Level of Service:32859 [place] OFFICE/OUTPATIENT ESTABLISHED MOD MDM 30 MIN [facility] HPon 05-19-2023 H&P reviewed. The patient was examined and there are no changes to the H&P. [facility] H&P reviewed. The patient was examined and there are no changes to the H&P. [facility] NURSNOTEon 05-19-[address] Petersen for pt to discharge at this time. [facility] MAXIMUS RN educated pt on d/c instructions. RN encouraged pt to voice any questions or concerns. Pt verbalizes no questions or concerns at this time. Pt was wheeled off of unit with all of belongings. [facility] 04-26-2023 [facility] Cardiology Consult Note Reason for visit: [...] Normal [facility] Office Visiton 04-26-2023 Follow-up visit [id number] Marly Jaffe 1955 F Date Provider Department Center 04/26/2023 Carli-KIERAN PETERSEN SUSANA [facility] Family History Problem Relation Age of Onset Stroke Mother Hypertension Mother Cancer Mother Stroke Father Other Father Family Status - Relation Status Age at Mother Father Level of Service:84559 [place] OFFICE/OUTPATIENT ESTABLISHED HIGH MDM 40-54 MIN Normal [facility] Office Visiton 02-16-2023 Follow-up visit [id number] Marly Jaffe 1955 Date Provider Department Center 02/16/2023 AbrahamJOSE COBURN [place] Family History Problem Relation Age of Onset Stroke Mother Hypertension Mother Cancer Mother Stroke Father Other Father Family Status - Relation Status Age at Mother Father Level of Service:84942 [place] OFFICE/OUTPATIENT ESTABLISHED MOD MDM 30-39 MIN Normal [facility] Office Visiton 01-12-2023 Follow-up visit [id number] Marly Jaffe 1955 Provider Department Center 01/12/2023 GualbertoLeeJOSE COBURN Family History Problem Relation Age of Onset Stroke Mother Hypertension Mother Cancer Mother Stroke Father Other Father Family Status - Relation Status Age at Mother Father Level of Service:97242 [place] OFFICE/OUTPATIENT ESTABLISHED MOD MDM 30-39 MIN Reason for Visit and Comments: Follow-up [780032] - 1 month follow up Normal [facility] CT LUNG CANCER SCREENINGon 0 08-04-2022 CT [...] by: ÁNGEL PUGH Date: 2022-08-04 14:41 Normal [facility] XR RIBS BIL_PA CH 4V OR [...] by: ÁNGEL PUGH Date: 2022-08-04 14:45 Normal [facility] XR TSPINE MIN 4 VIEWSon XR [...] by: ÁNGEL PUGH Date: 2022-08-04 14:42 Normal [facility] Desean 07-29-2022 L Specimen: [id number] Received: 07/29/22 Status: HUY Mejia Num: [id number] Spec Type: Surgical Subm Dr: Enrrique Grant MD Tissues: A Colon Biopsy (POLYP SIGMOID) Procedures: HE/2, Gross/Micro L4 Age/ Patient Sex Location Account Attending Physician Marly Jaffe 67/F [id number] Enrrique Grant MD SPEC NUM: [id number] RECD: 07/29/22 STATUS: HUY MEJIA NUM: [id number] SALOMON: 07/29/22- TORSTEN DR: Enrrique Grant MD ENTERED: 07/29/[address] [facility] DR: SPEC TYPE: Surgical DEPT: S ORDERED: [...] support the above pathologic diagnosis. CPT Codes 16327 Specimen: [id number] Received: 07/29/22 Status: HUY Jackie Num: [id number] Spec Type: Surgical Subm Dr: Enrrique Grant MD Tissues: A Colon Biopsy (POLYP SIGMOID) Procedures: HE/2, Gross/Micro L4 Patient: Marly Jaffe [id number] (Continued) Signed (signature on file) Benjamin Wolf MD 07/30/22 1133 Normal [facility] ECHOCARDIO M/2D COMPLETEon 0 07-13-2022 ECHOCARDIO M/2D COMPLETE Patient: MARLY JAFFE Exam Date: 07/13/2022 : 1955 Gender:F Ordering : KIERAN ElvaTeddy PETERSEN Admission #: [id number] Family : Order #: [id number] CLICK HERE TO VIEW EXAM ECHOCARDIOGRAM REPORT [...] at 10:33 Normal [facility] MG MAMM SCREEN 3D LAWRENCE CADon 06-23-2022 MG MAMM SCREEN 3D LAWRENCE CAD Patient: MARLY JAFFE Exam Date: 06/23/2022 : 1955 Gender:F Ordering : DR MERCY MORGAN . Admission #: [id number] Family : Order #: [id number] CLICK HERE TO VIEW EXAM RADIOLOGY REPORT [...] colon cancer at age 51. LOCATION: [facility] BREAST COMPOSITION: Scattered areas fibroglandular density. [...] Pugh M.D. on 06/23/2022 at 14:39 Normal [facility] PAP ACOG PANEL 2: 30 to 65on 06-23-2022 . . Normal [facility] Comment on above: Performed By: #### 4 [id number] #### [facility] [address] [place] [address] Dr. Jeramy Dumont Age Gdln ACOG Testing Comment Normal [facility] Comment on above: Result Comment: <21 or >65 or no age provided Performed By: #### 4 [id number] #### [facility] [address] [place] [address] Dr. Jeramy Dumont DIAGNOSIS: Comment [facility] Comment on above: Result Comment: NEGA TIVE FOR INTRAEPITHELIAL LESION OR MALIGNANCY. REACTIVE CELLULAR CHANGES AND/OR REPAIR ARE PRESENT. Performed By: #### 4 [id number] #### [facility] [address] [place] [address] Dr. Jeramy Dumont Electronically signed by: Comment Normal [facility] Comment on above: Result Comment: Bere Aguilar MD, Pathologist Performed By: #### 4 [id number] #### [place] [address] Dr. Jeramy Dumont Methodology: Comment [facility] Comment on above: Result Comment: This liquid based ThinPrep(R) pap test was screened with the use of an image guided system. Performed By: #### 4 [id number] #### [facility] [address] [place] [address] Dr. Jeramy Dumont Note: Comment [facility] Comment on above: Result Comment: The Pap smear is a screening test designed to aid in the detection of premalignant and malignant conditions of the uterine cervix. It is not a diagnostic procedure and should not be used as the sole means of detecting cervical cancer. Both false-positive and false-negative reports do occur. . Performed By: #### 4 [id number] #### [facility] [address] [place] [address] Dr. Jeramy Dumont Performed by: Comment Normal [facility] Comment on above: Result Comment: Norma Mancia Benzol Operator (ASCP) Performed By: #### 4 [id number] #### [facility] [address] [place] [address] Dr. Jeramy Dumont Specimen adequacy: Comment Normal [facility] Comment on above: Result Comment: Sati sfactory for evaluation. Endocervical and/or squamous metaplastic cells (endocervical component) are present. Performed By: #### 4 [id number] #### [facility] [address] [place] [address] [address] Jeramy Dumont XR DEXA BONE DENSITYon [...] ÁNGEL PUGH Date: 2022-06-23 11:46 Normal [facility] CBC AUTO DIFFon 04-27-2022 BASO # 0.1 103/ul Normal 0.0-0.1 [facility] Comment on above: Performed By: #### C BC ####[facility] [address] [place] [address]Dr. Jeramy Dumont Basophils/100 WBC (Bld) 0.6 % Normal 0.2-2.0 [facility] Comment on above: Performed By: #### C BC ####[facility] [address] [place] [address]DrTeddy Dumont EO # 0.2 103/ul Normal 0.0-0.7 [facility] Comment on above: Performed By: #### C BC ####[facility] [address] [place] [address]DrTeddy Dumont Eosinophils/100 WBC (Bld) 1.9 % Normal 0.9-7.0 [facility] Comment on above: Performed By: #### C BC ####[facility] [address] [place] [address]DrTeddy Dumont Erythrocyte distribution width (RBC) [Ratio] 13.3 % Normal 11.0-15.0 [facility] Comment on above: Performed By: #### C BC ####[facility] [address] [place] [address]Dr. Jeramy Dumont Hematocrit (Bld) [Volume fraction] 41.1 % Normal 36.0-48.0 [facility] Comment on above: Performed By: #### C BC ####[facility] [address] [place] [address]Dr. Jeramy Dumont Hemoglobin (Bld) [Mass/Vol] 13.4 g/dL Normal 12.0-16.0 [facility] Comment on above: Performed By: #### C BC ####[facility] [address] [place], [place] [address]Dr. Jeramy Tim IG # 0.02 10e3/ul Normal 0.00-0.03 [facility] Comment on above: Performed By: #### C BC ####[facility] [address] [place], [place] [address]Dr. Moniquelaura Dumont IG % 0.2 % Normal 0.0-0.5 [facility] Comment on above: Performed By: #### C BC ####[facility] [address] [place], [place] [address]Dr. Jeramy Tim LYMPH # 3.2 103/ul Normal 1.2-3.8 [facility] Comment on above: Performed By: #### C BC ####[facility] [address] [place], [place] [address]Dr. Moniquelaura Dumont Lymphocytes/100 WBC (Bld) 39.1 % Normal 20.5-60.0 [facility] Comment on above: Performed By: #### C BC ####[facility] [address] [place], [place] [address]Dr. Moniquelaura Dumont MANUAL DIFF REQ NO Normal [facility] Comment on above: Performed By: #### C BC ####[facility] [address] [place], [place] [address]Dr. Moniquelaura Dumont MCH (RBC) [Entitic mass] 30.7 pg Normal 26.7-34.0 [facility] Comment on above: Performed By: #### C BC ####[facility] [address] [place] [id number]. Jeramy Tim MCHC (RBC) [Mass/Vol] 32.6 g/dL Normal 29.9-35.2 [facility] Comment on above: Performed By: #### C BC ####[facility] [address] [place] [id number]. Jeramy Tim MCV (RBC) [Entitic vol] 94.3 fL Normal 81.0-99.0 [facility] Comment on above: Performed By: #### C BC ####[facility] [address] [place], [place] [address]Dr. Jeramy Tim MONO # 0.6 103/ul Normal 0.3-0.8 [facility] Comment on above: Performed By: #### C BC ####[facility] [address] [place], [place] [address]Dr. Jeramy Dumont Monocytes/100 WBC (Bld) 6.6 % Normal 1.7-12.0 [facility] Comment on above: Performed By: #### C BC ####[facility] [address] [place], [place] [address]Dr. Jeramy Dumont NEUT # 4.3 103/ul Normal 1.4-6.5 [facility] Comment on above: Performed By: #### C BC ####[facility] [address] [place], [place] [address]Dr. Jeramy Dumont Neutrophils/100 WBC (Bld) 51.6 % Normal 43.0-75.0 [facility] Comment on above: Performed By: #### C BC ####[facility] [address] [place], [place] [address]Dr. Jeramy Dumont Platelet mean volume (Bld) [Entitic vol] 9.8 fL Normal 9.5-13.5 [facility] Comment on above: Performed By: #### C BC ####[facility] [address] [place], [place] [address]Dr. Jeramy Dumont PLT 283 103/ul Normal 150-450 [facility] Comment on above: Performed By: #### C BC ####[facility] [address] [place] [id number]. Jeramy Dumont RBC 4.36 106/ul Normal 4.20-5.40 [facility] Comment on above: Performed By: #### C BC ####[facility] [address] [place] [id number]. Jeramy Dumont WBC 8.3 103/ul Normal 4.0-11.0 [facility] Comment on above: Performed By: #### C BC ####[facility] [address] [place] [id number]. Jeramy Dumont FREE T3on 04-27-2022 FREE T3 2.20 pg/mlL Normal 2.18-3.98 [facility] Comment on above: Performed By: #### F T3, TSH, BMP, LIVER ####[facility] [address] [place] [address]Dr. Jeramy Dumont FREE T4on 04-27-2022 Free T4 [Mass/Vol] 0.96 ng/dL Normal 0.76-1.46 [facility] Comment on above: Performed By: #### F T4 ####[facility] [address] [place] [address]Dr. Jeramy Dumont LIVER PROFILEon 04-27-2022 Albumin [Mass/Vol] 3.7 g/dL Normal 3.4-5.0 [facility] Comment on above: Performed By: #### F T3, TSH, BMP, LIVER #### [facility] [address] [address] [address] Jeramy Dumont Albumin/Globulin [Mass ratio] 1.1 {ratio} Normal [facility] Comment on above: Performed By: #### F T3, TSH, BMP, LIVER #### [facility] [address] [address] [address] Jeramy Dumont ALP [Catalytic activity/Vol] 64 U/L Normal 46-116 [facility] Comment on above: Performed By: #### F T3, TSH, BMP, LIVER #### [facility] [address] [address] [address] Jeramy Dumont ALT [Catalytic activity/Vol] 28 U/L Normal 14-59 [facility] Comment on above: Performed By: #### F T3, TSH, BMP, LIVER #### [facility] [address] [address] [address] Jeramy Dumont AST [Catalytic activity/Vol] 16 U/L Normal 15-37 [facility] Comment on above: Performed By: #### F T3, TSH, BMP, LIVER #### [facility] [address] [place] [address] Dr. Jeramy Dumont BILI, CONJUGATED 0.1 mg/dL Normal 0.0-0.2 [facility] Comment on above: Performed By: #### F T3, TSH, BMP, LIVER #### [facility] [address] [place] [address] Dr. Jeramy Dumont Bilirubin [Mass/Vol] 0.2 mg/dL Normal 0.2-1.0 [facility] Comment on above: Performed By: #### F T3, TSH, BMP, LIVER #### [facility] [address] [place] [address] Dr. Jeramy Dumont Globulin (S) [Mass/Vol] 3.5 g/dL Normal T [facility] Comment on above: Performed By: #### F T3, TSH, BMP, LIVER #### [facility] [address] [place] [address] Dr. Jeramy Dumont Protein [Mass/Vol] 7.2 g/dL Normal 6.4-8.2 [facility] Comment on above: Performed By: #### F T3, TSH, BMP, LIVER #### [facility] [address] [place] [address] Dr. Jeramy Dumont PROF CHEM 8 (BAS METB)on Anion gap [Moles/Vol] 10.3 mmol/L Normal [facility] Comment on above: Performed By: #### F T3, TSH, BMP, LIVER #### [facility] [address] [place] [address] Dr. Jeramy Dumont Calcium [Mass/Vol] 9.0 mg/dL Normal 8.5-10.1 [facility] Comment on above: Performed By: #### F T3, TSH, BMP, LIVER #### [facility] [address] [address] [address] Jeramy Dumont Chloride [Moles/Vol] 105 mmol/L Normal 98-107 [facility] Comment on above: Performed By: #### F T3, TSH, BMP, LIVER #### [facility] [address] [address] [address] Jeramy Dumont CO2 [Moles/Vol] 30.7 mmol/L Normal 21.0-32.0 [facility] Comment on above: Performed By: #### F T3, TSH, BMP, LIVER #### [facility] [address] [place] [address] Dr. Jeramy Dumont Creatinine [Mass/Vol] 0.85 mg/dL Normal 0.55-1.02 [facility] Comment on above: Performed By: #### F T3, TSH, BMP, LIVER #### [facility] [address] [place] [address] Dr. Jeramy Dumont EGFR-AF TUNISIAN >60 Normal >=60 [facility] Comment on above: Performed By: #### F T3, TSH, BMP, LIVER #### [facility] [address] [place] [address] Dr. Jeramy Dumont EGFR-NON AF TUNISIAN >60 Normal >=60 [facility] Comment on above: Performed By: #### F T3, TSH, BMP, LIVER #### [facility] [address] [address] [address] Jeramy Dumont Glucose [Mass/Vol] 101 mg/dL Normal 74-106 [facility] Comment on above: Performed By: #### F T3, TSH, BMP, LIVER #### [facility] [address] [place] [address] Dr. Jeramy Dumont Potassium [Moles/Vol] 4.0 mmol/L Normal 3.5-5.1 [facility] Comment on above: Performed By: #### F T3, TSH, BMP, LIVER #### [facility] [address] [address] [address] Jeramy Dumont Sodium [Moles/Vol] 142 mmol/L Normal 136-145 [facility] Comment on above: Performed By: #### F T3, TSH, BMP, LIVER #### [facility] [address] [address] [address] Jeramy Dumont Urea nitrogen [Mass/Vol] 15.0 mg/dL Normal 7.0-18.0 [facility] Comment on above: Performed By: #### F T3, TSH, BMP, LIVER #### [facility] [address] [address] [address] Jeramy Dumont Urea nitrogen/Creatinine [Mass ratio] 17.6 mg/mg Normal [facility] Comment on above: Performed By: #### F T3, TSH, BMP, LIVER #### [facility] [address] [address] [address] Jeramy Dumont TSHon 04-27-2022 TSH 0.960 uIU/mL Normal 0.358-3.740 [facility] Comment on above: Performed By: #### F T3, TSH, BMP, LIVER ####[facility] [address] [place] [id number]. Jeramy Dumont [facility]03 SARS-CoV-2 (COVID-19) RNA TRAVON+probe Ql (Unsp spec) Not detected Normal NOT DETECTED [facility] Comment on above: Result Comment: This test is not yet approved or cleared by the [place] FDA. When there are no FDA-approved or cleared tests available, and other criteria are met, FDA can make tests available under an emergency access mechanism called an Emergency Use Authorization (EUA). The EUA for this test is supported by the Gas Comp[employer] Operator of Health and Human Service's (HHS's) declaration [...] consistent with SARS-CoV-2. Performed By: #### [facility] ####[facility] [id number] [place], [place] [address]TsTeddy Dumont Established Visit (Gastroent erology)on 04-30-2020 Established Visit (Gastroenterology) Diagnoses/Problems Assessed Chronic idiopathic constipation (564.00) (K59.04) Esophageal reflux (530.81) (K21.9) Orders Chronic idiopathic constipation Start: Amitiza 8 MCG Oral Capsule; Take 1 capsule twice daily Rx By: Krzysztof Larkin; Dispense: 0 Days ; #:60 Capsule; Refill: 1;For: Chronic idiopathic constipation; ASHLYN = N; Verified Transmission to [facility] #33[facility]; Last Updated By: Jammcard; 04/30/2020 1:37:03 PM Esophageal reflux Renew: Omeprazole 20 MG Oral Capsule Delayed Release; TAKE 1 CAPSULE DAILY Rx By: Krzysztof Larkin; Dispense: 0 Days ; #:90 Capsule; Refill: 1;For: Esophageal reflux; ASHLYN = N; Verified Transmission to [facility] #3393; Last Updated By: Jammcard; 04/30/2020 1:37:11 PM Patient Discussion/Summary Change omeprazole [...] Daily Oral Tablet Vitals Vital Signs Recorded: [id number] 01:17PM Lrfjmfvjila85 F Height5 ft 3 in Qwmfrw390 lb BMI Xpxcznayfo27.74 BSA Calculated1.63 Physical Exam Constitutional General appearance: [...] Normal Touchworks MRI BRAIN WO/W IVCONon 02-13 [facility] C-Reactive Proteinon 019 CRP mass conc mg/L Normal 0.0-0.4 [facility] Comment on above: Performed By: #### C BCDIF, CRP #### [address], [place] [address] #### WSR #### [facility] [address] [place] [phone] CBC and Differentialon 10-31 Abs Baso 0.05 k/uL Normal <0.11 [facility] Comment on above: Performed By: #### C BCDIF, CRP #### [address] [place] [address] #### WSR #### [facility] [address] [place] [phone] Abs [place] 0.49 k/uL Normal <0.87 [facility] Comment on above: Performed By: #### C BCDIF, CRP #### [place] [id number] [facility], [place] [address] #### WSR #### [facility] [address] [place] [phone] Abs Neut 6.28 k/uL Normal 1.45-7.50 [facility] Comment on above: Performed By: #### C BCDIF, CRP #### [address] [place] [address] #### WSR #### [facility] [address] [place] [phone] Absolute nRBC <0.01 Normal <0.01 [facility] Comment on above: Performed By: #### C BCDIF, CRP #### [address] [place] [address] #### WSR #### [facility] [address] [place] [phone] Basophils/100 WBC (Bld) 0.6 % Normal [facility] Comment on above: Performed By: #### C BCDIF, CRP #### [address] [place] [address] #### WSR #### [facility] [address] [place] [phone] DTYPE Auto Diff [facility] Comment on above: Performed By: #### C BCDIF, CRP #### [address] [place] [address] #### WSR #### [facility] [address] [phone] Eosinophils #/vol (Bld) 0.08 10*3/uL Normal <0.46 [facility] Comment on above: Performed By: #### C BCDIF, CRP #### [address] [place] [address] #### WSR #### [facility] [address] [place] [phone] Eosinophils/100 WBC (Bld) 0.9 % Normal [facility] Comment on above: Performed By: #### C BCDIF, CRP #### [address] [place] [address] #### WSR #### [facility] [address] [place] [phone] Erythrocyte distribution width Ratio (RBC) 13.5 % Normal 11.5-15.0 [facility] Comment on above: Performed By: #### C BCDIF, CRP #### [address] [place] [address] #### WSR #### [place] [id number] [place] [phone] Hematocrit Volume Fraction (Bld) 42.3 % Normal 36.0-46.0 [facility] Comment on above: Performed By: #### C BCDIF, CRP #### [phone] #### WSR #### [place] [address] [place] [phone] Hemoglobin mass conc (Bld) 14.0 g/dL Normal 11.5-15.5 [facility] Comment on above: Performed By: #### C BCDIF, CRP #### [address] [place] [address] #### WSR #### [facility] [address] [place] [phone] Lymphocytes #/vol (Bld) 2.07 10*3/uL Normal 1.00-4.00 [facility] Comment on above: Performed By: #### C BCDIF, CRP #### [address] [place] [address] #### WSR #### [facility] [address] [place] [phone] Lymphocytes/100 WBC (Bld) 23.1 % Normal [facility] Comment on above: Performed By: #### C BCDIF, CRP #### [address] [place] [address] #### WSR #### [facility] [address] [place] [address] MCH Entitic mass (RBC) 31.1 pG Normal 26.0-34.0 [facility] [place] Comment on above: Performed By: #### C BCDIF, CRP #### [address] [place] [address] #### WSR #### [place] [address] MCHC mass conc (RBC) 33.1 g/dL Normal 30.5-36.0 [facility] Comment on above: Performed By: #### C BCDIF, CRP #### [address] [place] [address] #### WSR #### [facility] [address] [place] [address] MCV Entitic volume (RBC) 94.0 fL Normal 80.0-100.0 [facility] Comment on above: Performed By: #### C BCDIF, CRP #### [address] [facility] #### WSR #### [facility] [address] [place] [address] Monocytes/100 WBC (Bld) 5.5 % Normal [facility] Comment on above: Performed By: #### C BCDIF, CRP #### [address] [place] [address] #### WSR #### [facility] [address] [place], [place] [address] Neutrophils/100 WBC (Bld) 69.9 % Normal [facility] Comment on above: Performed By: #### C BCDIF, CRP #### [facility] [address] [place] [address]., [facility] #### WSR #### [facility] [address] [place] [address] NRBCs 0.0 /100 WBC Normal 0 [facility] Comment on above: Performed By: #### C BCDIF, CRP #### [address] [place] [address] #### WSR #### [place] [address] Platelet mean volume Entitic volume (Bld) 9.5 fL Normal 9.0-12.7 [facility] Comment on above: Performed By: #### C BCDIF, CRP #### [address] [place] [address] #### WSR #### [place] [address] Platelets #/vol (Bld) 279 10*3/uL Normal 150-400 [facility] [place] Comment on above: Performed By: #### C BCDIF, CRP #### [address] [place] [address] #### WSR #### [place] [id number] [place] [address] RBC #/vol (Bld) 4.50 10*6/uL Normal 3.90-5.20 [facility] Comment on above: Performed By: #### C BCDIF, CRP #### [address] [facility] #### WSR #### [facility] [address] [place], [place] [address] WBC #/vol (Bld) 8.97 10*3/uL Normal 3.70-11.00 [facility] Comment on above: Performed By: #### C BCDIF, CRP #### [facility] [address] [place] [address] #### WSR #### [facility] [address] [place], [place] [address] ED NOTEon 10-31-2018 ED NOTE HNO ID: [id number] Author: Erwin Dye MD Service: Emergency Medicine Author Type: Physician Type: ED Notes Filed: 11/03/2018 2:16 PM Note Text: Doing better, followed up with spine [facility] ED NOTE HNO ID: [id number] Author: Vasquez BairesRn) STEVE Winchester Service: ? [...] - notify physician of changes in condition [facility] ED NOTE HNO ID: [id number] Author: Lubna BairesRn) STEVE Dumont Service: ? Author Type: Registered Nurse Type: ED Notes Filed: 10/31/2018 9:08 AM Note Text: Bed: ED-15 Expected date: Expected time: Means of arrival: Comments: Trice [facility] ED PROV NOTEon 10-31-2018 Protein mass conc HNO ID: [id number] Author: Erwin Dye MD Service: Emergency Medicine [...] has TENS unit at home. Evaluated by emergency management program specialist earlier today who advised her to [...] Erwin Zarco MD 10/31/18 1421 Normal [facility] Sed Rate Westergrenon 2018 Sed Rate Westergren 8 mm/hr Normal 0-20 [facility] Comment on above: Performed By: #### C BCDIF, CRP #### [facility] [address] [place] [address] #### WSR #### [facility] [address] [place], [place] [address] Dermatopathologyon 9 Dermatopathology Pathologist: SETH BERNAL MD Date of Procedure: 09/12/2018 Date Received: 09/13/2018 Date Reported 09/14/2018 Submitting Physician: KEILY CRAIN MD Location: [facility] FINAL DIAGNOSIS SKIN, RIGHT MORAVIAN, EXCISION: CHANGES CONSISTENT WITH PREVIOUS PROCEDURE, PRESENT ON THE DEEP AND PERIPHERAL MARGIN WITHOUT RESIDUAL SQUAMOUS CELL CARCINOMA SEEN. Electronically Signed Out by SETH BERNAL M.D. Electronically Signed Out By SETH BERNAL MD/[facility] Microscopic Description: Microscopic examination reveals a specimen that extends into the subcutaneous fat. An area with horizontally oriented collagen and vertically oriented vessels is present. 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 Specimens Submitted As: A: SKIN, RIGHT MORAVIAN Gross Description: Received in formalin is a craig piece of skin measuring 16 x 5 x 1 mm. Inked and embedded in toto in two blocks. [facility]/09/13/2018 Normal [facility] Comment on above: Performed By: #### D #### Dermatopathology Dermatopathologyon 9 Dermatopathology Pathologist: SETH BERNAL MD Date of Procedure: 07/11/2018 Date Received: 07/12/2018 Date Reported 07/13/2018 Submitting Physician: KEILY CRAIN MD Location: [facility] FINAL DIAGNOSIS A. 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 B. SKIN, RIGHT MORAVIAN, BIOPSY: CONSISTENT WITH INVASIVE SQUAMOUS CELL CARCINOMA, WELL DIFFERENTIATED, PRESENT ON THE DEEP MARGIN, SEE NOTE. Note: Microscopic examination reveals a specimen that extends into the superficial dermis. There are areas of invagination of the epidermis with a slight downward bulbous growth pattern. There is mild to moderate solar elastosis. Electronically Signed Out by SETH BERNAL M.D. Electronically Signed Out By SETH BERNAL MD/[facility] Microscopic Description: A. 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 Clinical History: A: NAD. B: ISK vs. SCC. Specimens Submitted As: A: SKIN, RIGHT PHAM B: SKIN, RIGHT MORAVIAN Gross Description: A: Received in formalin is a craig-brown piece of skin measuring [id number]. The specimen is inked and embedded in toto. B: Received in formalin is a craig piece of skin measuring [id number]. The specimen is inked and embedded in toto. ink/07/12/2018 Normal [facility] Comment on above: Performed By: #### D #### Dermatopathology Vital Signs Date Time Vital Sign Value Performing Clinician Facility 06-02-2023 13:15-0500 Body height 160.02 cm Sharonda Calix Other [facility] Other 06-02-2023 13:15-0500 Body mass index (BMI) [Ratio] 23.27 kg/m2 Sharonda Calix Other [facility] Other 06-02-2023 13:15-0500 Body temperature 96.9 [degF] Sharonda Calix Other [facility] Other 06-02-2023 13:15-0500 Body weight 59.6 kg Sharonda Calix Other [facility] Other 06-02-2023 13:15-0500 Diastolic blood pressure 79 mm[Hg] Sharonda Calix Other [facility] Other 06-02-2023 13:15-0500 SaO2% (BldA) [Mass fraction] 95 % Sharonda Calix Other [facility] Other 06-02-2023 13:15-0500 Systolic blood pressure 120 mm[Hg] Sharonda Calix Other [facility] Other 03-17-2023 11:00-0400 Body height 167.64 cm Enrrique Grant Other [facility] Other 09-17-2022 11:00-0400 Body mass index (BMI) [Ratio] 20.98 kg/m2 Enrrique Grant Other [facility] Other 09-17-2022 11:00-0400 Body weight 58.97 kg Enrrique Grant Other [facility] Other 09-17-2022 11:00-0400 Diastolic blood pressure 97 mm[Hg] Enrrique Grant Other [facility] Other 09-17-2022 11:00-0400 Systolic blood pressure 139 mm[Hg] Enrrique Grant Other [facility] Other 07-29-2022 12:11-0500 Diastolic blood pressure 84 mm[Hg] MD Jameel Manzanares Work Phone: [facility] 07-29-2022 12:11-0500 Heart rate 71 /min MD Jameel Manzanares Work Phone: [facility] 07-29-2022 12:11-0500 Respiratory rate 16 /min MD Jameel Manzanares Work Phone: [facility] 07-29-2022 12:11-0500 SaO2% (BldA) [Mass fraction] 96 % MD Jameel Manzanares Work Phone: [facility] 07-29-2022 12:11-0500 Systolic blood pressure 120 mm[Hg] MD Jameel Manzanares Work Phone: [facility] 07-29-2022 09:45-0500 Body height 160.02 cm MD Jameel Manzanares Work Phone: [facility] 07-29-2022 09:45-0500 Body temperature 98.4 [degF] MD Jameel Manzanares Work Phone: [facility] 07-29-2022 09:45-0500 Body weight 58.96 kg MD Jameel Manzanares Work Phone: [facility] Encounters Encounter Date Encounter Type Care Provider Facility Start: 12-22-2023 ambulatory [facility] Start: 12-22-2023 ambulatory [facility] Start: 12-01-2023 End: 12-01-2023 [facility]ulatory [facility] Start: 11-15-2023 ambulatory KIERAN FITZGERALDCKO [facility] Start: 09-05-2023 End: 09-05-2023 ambulatory SHAAN H TIMMIS Not Available Start: 08-26-2023 End: 08-26-2023 ambulatory Sharonda Calix Other [facility] Other Start: 08-26-2023 Telephone encounter Sharonda Calix [facility] Start: 08-18-2023 End: 08-19-2023 ambulatory Shaan H Timmis Facility[facility] Start: 07-06-2023 End: 07-06-2023 ambulatory SHAAN H TIMMIS Not Available Start: 07-06-2023 End: 08-11-2023 Pre-admission assessment Shaan H Timmis [facility] Start: 06-21-2023 End: 06-21-2023 ambulatory Sharonda Calix Other [facility] Other Start: 06-21-2023 Telephone encounter Sharonda Calix [facility] Start: 06-20-2023 Telephone encounter Sharonda Calix [facility] Start: 06-20-2023 End: 06-20-2023 ambulatory JOSE [facility] [employer] Other Start: 06-17-2023 End: 06-17-2023 ambulatory Sharonda Calix Other [facility] Other Start: 06-17-2023 Telephone encounter Sharonda Calix [facility] Start: 06-06-2023 End: 06-06-2023 ambulatory Sharonda Calix Other [facility] Other Start: 06-06-2023 Telephone encounter Sharonda Calix [facility] Start: 06-02-2023 End: 06-02-2023 ambulatory Sharonda Calix Other [facility] Other Start: 06-02-2023 Office outpatient visit 25 minutes Sharonda Calix [facility] Start: 05-19-2023 Nursing evaluation o f patient and report Sharonda Calix [facility] Start: 05-19-2023 End: 05-19-2023 [facility] [employer] [facility] Start: 04-26-2023 End: 04-26-[address] [facility] Start: 02-16-2023 End: 02-16-2023 ambulatory [facility] Start: 01-12-2023 End: 01-12-2023 ambulatory [facility] Start: 10-21-2022 End: 10-22-2022 ambulatory AAKASH CALIX . Facility:[facility] Start: 09-17-2022 End: 09-17-2022 ambulatory Enrrique Grant Other [facility] Other Start: 09-17-2022 Office outpatient visit 15 minutes Enrrique Grant [facility] Start: 08-04-2022 End: 08-05-[address] ÁNGEL PUGH Facility:[facility] Start: 07-29-2022 End: 07-29-2022 ambulatory Enrrique Grant Facility:[facility] Start: 07-29-2022 End: 07-29-2022 Admission to same day surgery center MD Jameel Manzanares Work Phone: [facility] Work Phone: Start: 07-29-2022 End: 07-29-2022 ambulatory MD Jameel Manzanares Work Phone: [facility] Work Phone: Start: 07-13-2022 End: 07-14-2022 ambulatory KIERAN PETERSEN Facility:[facility] Start: 06-23-2022 End: 06-24-[address] MERCY MORGAN . Facility:[facility] Start: 06-16-2022 ambulatory Jyoti García MD Work Phone: [facility] [place] Start: 06-11-2022 End: 06-11-[address] MERCY [...] laboratory examination DR ANTONELLA WAYNE . [facility] Start: 10-27-2021 End: 10-27-[address] ANTONELLA WAYNE . Facility:[facility] Start: 10-26-2021 End: 10-27-2021 Encounter for preprocedural laboratory examination DR ANTONELLA WAYNE . Facility:[facility] Start: 10-26-2021 End: 10-27-[address] ANTONELLA WAYNE . Facility:[facility] Start: 04-30-2020 [facility] Work Phone: Start: 02-14-2020 End: 02-14-2020 Subsequent hospital visit by physician [employer] [employer] [facility] (I-Stat/1.5t) Radiology Comment on above: Chronic mixed headac he syndrome [G44.89] Start: 10-31-2018 End: 10-31-2018 Emergency department patient visit [facility] Start: 08-25-2018 [facility] Work Phone: Start: 11-02-2017 Patient encounter procedure [facility] Work Phone: Start: 10-21-2017 Patient encounter procedure R[facility] Work Phone: Procedures [...] panel - Serum or Plasma Lipid Screening [facility] Start: 09-11-2024 LIPID SCREEN LIPID SCREEN [facility] Start: 03-04-2023 Influenza vaccination Influenza Vacc ine (#1) [facility] Start: 09-11-2022 DIABETES SCREEN DIABETES SCREEN [facility] Start: 09-11-2022 Diabetes Screening Diabetes Screenin g [facility] Start: 07-29-2022 [facility] Start: 07-04-2022 Advance Directive Discussion Advance Directive Discussion [facility] Start: 07-04-2022 Colonoscopy COLONOSCOPY [facility] Start: 07-04-2022 COLORECTAL CANCER SCREENING COLORECTAL CANCER SCREENING [facility] Start: 07-04-2022 Depression Assessment Depression Ass essment [facility] Start: 03-04-2022 Influenza vaccination INFLUENZA (#1) [facility] Start: 08-13-2021 Adult depression screening assessment DEPRESSION SCREENING [facility] Start: 07-04-2021 ADVANCE DIRECTIVE DISCUSSION ADVANCE DIRECTIVE DISCUSSION [facility] Start: 07-04-2021 DEPRESSION ASSESSMENT DEPRESSION ASS ESSMENT [facility] Start: 03-30-2021 Urine microalbumin profile [facility] Start: 09-12-2019 Mammography [facility] Start: 2016 RSV Vaccine (1 - 1-d ose 60+ series) RSV Vaccine (1 - 1-dose 60+ series) [facility] Start: 05-23-2014 Pneumococcal Vaccine : 65+ (2 - PCV) Pneumococcal Vaccine: 65+ (2 - PCV) [facility] Start: 05-23-2014 PNEUMOCOCCAL: 65+ (2 - PCV) PNEUMOCOCCAL: 65+ (2 - PCV) [facility] Start: 11-30-2013 FECAL OCCULT BLOOD FECAL OCCULT BLOO D [facility] Start: 2006 SHINGRIX VACCINE (1 of 2) SHINGRIX VACCINE (1 of 2) [facility] Start: 2001 COLOGUARD (FIT-DNA) COLOGUARD (FIT-D NA) [facility] Start: [address] COLONOGRAPHY [facility] Start: 2001 SIGMOIDOSCOPY SIGMOIDOSCOPY [facility] Start: 1956 COVID-19 VACCINE (#1) COVID-19 VACCI NE (#1) [facility] End: 07-16-2023 DOLORES SCREENING DOLORES SCREENING Radiology Routine Encounter for screening mammogram for breast cancer 1 Occurrences starting 06/16/2022 until 07/16/2023 [facility] Work Phone: Comment on above: 1 Occurrences starti ng 06/16/2022 until 07/16/2023 Patient Education Hemorrhoids Co desean Polyps Diverticulosis (DC) [facility] Work Phone: Immunizations Immunization Date Immunization Notes Care Provider Cierra christian 05-19-2023 influenza, high dose seasonal, preservative-free Sharonda Michele Other [facility] Other 06-19-2020 influenza, injectabl e, quadrivalent, contains preservative Jojo Foster OD Work Phone: [facility] 06-19-2020 influenza virus vacc ine, unspecified formulation Mri (I-Stat/1.5t) [facility] 09-11-2019 influenza, injectabl e, quadrivalent, contains preservative Jojo Wesley OD Work Phone: [facility] 09-11-2019 zoster vaccine, recombinant, adjuvanted, (SHINGRIX, PF,) 50 mcg/0.5 mL injection Mri (I-Stat/1.5t) [facility] Work Phone: Comment on above: Inject 0.5 mL intram uscularly now and repeat 2nd dose in 2-6 months 03-28-2017 influenza, injectabl e, quadrivalent, contains preservative Jojo Wesley OD Work Phone: [facility] 08-12-2016 influenza, injectabl e, quadrivalent, preservative free Jojo Foster OD Work Phone: [facility] Work Phone: 04-14-2015 influenza, injectabl e, quadrivalent, preservative free Jojo Foster OD Work Phone: [facility] Work Phone: 05-23-2013 influenza virus vacc ine, unspecified formulation Jojo Foster OD Work Phone: [facility] 05-23-2013 pneumococcal polysaccharide vaccine, 23 valent Jojo Wesley OD Work Phone: [facility] 04-13-2012 influenza virus vacc ine, unspecified formulation Jojo Foster OD Work Phone: [facility] 03-30-2011 tetanus toxoid, redu rukhsana diphtheria toxoid, and acellular pertussis vaccine, adsorbed Jojo Foster OD Work Phone: [facility] Payers Date Payer Category Payer Self-pay 2019 Unknown [employer] PPO OOS [id number] 2019-Present [phone] [address] [place] [address] PPO [id number] 2019 Unknown [employer] PPO OOS [id number] 2019-Present [phone] [address] [place] [address] PPO [id number] 1959 Private Health Insurance [facility] [place] [facility] [place] [place] [id number] 1956 Unknown [id number] 2.16.840.1.322904.3.579.2.5 1956 Unknown [id number] 2.16.840.1.371441.3.579.2.5 1956 Unknown [id number] 2.16.840.1.051732.3.579.2.5 1956 Unknown [id number] 2.16.840.1.606251.3.579.2.5 1956 Unknown [id number] 2.16.840.1.987084.3.579.2.5 1956 Unknown [id number] 2.16.840.1.863248.3.579.2.5 1956 Unknown [id number] 2.16.840.1.642683.3.579.2.5 1956 Unknown [id number] 2.16.840.1.290487.3.579.2.5 1956 Unknown [id number] 2.16.840.1.789843.3.579.2.5 93 1956 Unknown [id number] 2.16.840.1.308644.3.579.2.5 93 1956 Unknown [id number] 2.16.840.1.128783.3.579.2.5 93 1956 Unknown [id number] 2.16.840.1.017107.3.579.2.5 93 1956 Unknown [id number] 2.16.840.1.443615.3.579.2.5 93 1956 Unknown [id number] 2.16.840.1.502192.3.579.2.1 259 1956 Unknown [id number] 2.16.840.1.453572.3.579.2.7 27 1956 Unknown [id number] 2.16.840.1.999625.3.579.2.1 259 Unknown [id number] 2.16.840.1.566966.3.579.2.5 31 Social History Date Type Detail Facility Start: 07-04-1985 Tobacco [facility] Start: 07-04-1985 History of tobacco use Cigarette Smo ker [facility] Start: 01-29-2020 End: 10-20-2020 Alcohol intake Current drinker of alcohol (finding) [facility] Start: 01-18-2020 End: 02-28-2020 History SDOH Alcohol Frequency 2 [facility] Start: 01-18-2020 End: 02-28-2020 History SDOH Alcohol Std Drinks 1 [facility] Start: 07-25-2014 History SDOH Alcohol Comment 1 drink per year [facility] Start: 09-11-2019 End: 01-18-2020 History SDOH Social Connections Phone 3 [facility] Start: 01-18-2020 History SDOH Physica l Activity DPW 5 [facility] Start: 09-11-2019 Education 15 [facility] Start: 09-11-2019 Tobacco Comment current 0.5-1ppd [facility] Start: 1955 Sex Assigned At Female C [facility] Start: 09-11-2019 End: 01-18-2020 Cigarettes smoked current (pack per day) - Reported 0.8 [facility] Start: 09-11-2019 Tobacco use and exposure Smoke less tobacco non-user [facility] Work Phone: Start: 07-29-2022 Tobacco smoking stat us NHIS Smoker (finding) [facility] Start: 09-11-2019 End: 01-18-2020 Sex Assigned At [facility] Frequency of Communication with Friends and Family Not on file [facility] Do you belong to any clubs or organizations such as jehovah's witness groups, unions, fraternal or athletic groups, or school groups? Yes [facility] How often to you hav e a drink containing alcohol? Monthly or less [facility] How many standard dr inks containing alcohol do you have on a typical day? 1 or 2 [facility] How often do you hav e 6 or more drinks on 1 occasion? Never [facility] Do you feel stress - tense, restless, nervous, or anxious, or unable to sleep at night because your mind is troubled all the time - these days [OSQ] Only a little [facility] (I/We) worried whebeto er (my/our) food would run out before (I/we) got money to buy more. Never true [facility] In the past 12 month s, was there a time when you were not able to pay the mortgage or rent on time? No [facility] Start: 11-17-2018 Gender identity Identifies as female gender (finding) [facility] Start: 11-17-2018 Sexual orientation Choose not to disclose [facility] Start: 01-15-2020 End: 02-14-2020 Exposure to SARS-CoV-2 (event) Not sure [facility] Tobacco smoking status No Smokin g Status Entered [facility] NEGATED: Highlighted row - Current every day smoker [email or web address] Work Phone: Goals Date Patient Goal Desired Activity /State Functional Status Date Assessment Result Facility NEGATED: Highlighted row Functional performance Functional status health issues are not documented Disease [email or web address] Work Phone: Mental Status Date Assessment Result Facility NEGATED: Highlighted row Cognitive function [Interpretation] Cognitive status health issues are not documented Disease [email or web address] Work Phone: Clinical Notes 06-05-2012 to 12-01-2023 Note Date & Type Note Facility 12-01-2023 Note SD Cardiology - [facility] Subjective Marly Jaffe is a 68 [...] included)... [facility] 12-01-2023 Note Patient here for 6 m [...] negative. [facility] 06-21-2023 Evaluation note Encounter Date Diagnosis Assessment Notes Jun, Post-nasal drainage (ICD-10 - R09.82) [facility] Other [id number] NoteUT Cardiology Consult Note Reason for visit: [...] not included)...[facility]12-18-2023 NotePatient here for 1 mo follow up [...] are negative.[facility] 06-02-2023 Evaluation note* Encounter Date Diagnosis Assessment [...] Imaging and consider ENT referral if needed. [facility] Other 11-22-2023 NotePatient Outreach (INTMMN) MARLY JAFFE ([id number]) 1955 F Date Time Provider Department 05/25/23 [...] breast cancer [Z12.31] Order(s):[facility] [[id number]] Order #: [id number] FUTURE Prescriptions as of 05/30/2023 - travoprost [...] at bedtime as needed. - MV with Kah-Izsqlfkl-Atipin (CENTRUM SILVER) 0.4-300-250 mg-mcg-mcg tab Take 1 [...] (DM) [Z83.3] Postmenopausal atrophic vaginitis [N95.2] Dyspareunia [DBR5349] 11/04/2017 Tobacco user [Z72.0] 05/03/2013 Symptomatic menopausal or female climacteric st* Screening breast examination [Z12.39] 03/30/2011 08/02/2011 Constipation [K59.00] Abnormal mammogram [R92.8] 08/02/2011 11/04/2017 Elevated BP [ZUT6084] 08/02/2011 Chest pain [R07.9] 09/17/2011 05/03/2013 Tobacco dependency [F17.200] 09/17/2011 Family history of early CAD [Z82.49] 09/17/2011 Syncope [R55] 09/17/2011 Postmenopausal HRT (hormone replacement therapy*06/05/2012 Screening breast examination [Z12.39] 06/05/2012 05/03/2013 Elevated IOP [H40.059] 05/03/2013 Multiple thyroid nodules [E04.2] 05/03/2013 Family history of colon cancer [Z80.0] 03/28/2017 Smoker [F17.200] 05/03/2017 Bilateral wrist pain [M25.531, M25.532] 07/14/2017 Encounter Status:Closed by [employer], MedHOKUSER on 05/30/23[facility] 05-19-2023 Evaluation note* Encounter Date Diagnosis Assessment Notes Treatment Notes Treatment Clinical Notes May, Allergic rhinitis, unspecified seasonality, unspecified trigger (ICD-10 - J30.9) [facility] Other 11-16-2023 NoteLOOP IMPLANT PROCEDURE NOTE DATE OF PROCEDURE: 05/19/23 PERFORMING PHYSICIAN: Dr. Kieran Petersen JUNIOR HIGH MATH TEACHER: LIZ INDICATIONS FOR PROCEDURE: 1. SVT/AF surveillance [...] the sternum on the left using the [employer] tool. The loop recorder was then injected [...] Cardiac Electrophysiology.[facility]10-24-2023 NoteUT Cardiology Consult Note Reason for visit: [...] not included)...[facility]08-16-2023 NoteUT Cardiology Consult Note Reason for visit: [...] not included)...[facility]07-12-2023 NotePatient is here today for a 1 month follow up Review of Systems Cardiovascular: Positive for chest pain, irregular heartbeat and palpitations. All other systems reviewed and are negative.[facility] 01-12-2023 NoteUT Cardiology Consult Note Reason for [...] GERD (gastroesophageal reflux disease) SVT (supraventricular tachycardia) ([facility] PSH: Past Surgical History: [...] not included)...[facility]04-20-2023 NoteCONSULTATION CONSULTATION DATE: 10/21/2022 TO: Jameel Manzanares [...] our patients to inform us about any elau-mxk-ewkvxkf medications or herbal remedies/nutritional supplements/alternative remedies. 2. [...] treatment options with their primary care provider.[facility] [id number] Evaluation note * Encounter Date Diagnosis Assessment Notes Treatment Notes Treatment Clinical Notes Sep, Constipation (ICD-10 - K59.00) Sep, Diverticulosis (ICD-10 - K57.90) Sep, Hemorrhoids (ICD-10 - K64.9) Sep, Other Repeat colonoscopy in 5 yrs [facility] Other 01-26-2023 [facility] NotePatient Outreach (INTMMN) MARLY JAFFE ([id number]) 1955 F Date Time Provider Department 06/16/22 [...] breast cancer [Z12.31] Order(s):[facility] SCRE[facility] [[id number]] Order #: [id number] FUTURE Prescriptions as of 06/21/2022 - omeprazole [...] at bedtime as needed. - MV with Ezc-Lwmywyxy-Zmerdn (CENTRUM SILVER) 0.4-300-250 mg-mcg-mcg tab Take 1 [...] (DM) [Z83.3] Postmenopausal atrophic vaginitis [N95.2] Dyspareunia [LLO0670] 11/04/2017 Tobacco user [Z72.0] 05/03/2013 Symptomatic menopausal or female climacteric st* Screening breast examination [Z12.39] 03/30/2011 08/02/2011 Constipation [K59.00] Abnormal mammogram [R92.8] 08/02/2011 11/04/2017 Elevated BP [OVS4695] 08/02/2011 Chest pain [R07.9] 09/17/2011 05/03/2013 Tobacco [...] Status:Closed by FOUZIA COLLADO on 06/21/22[facility] 05-07-2022 Miscellaneous Notes* Telephone Encounter - Judy Patel MA - 05/07/2022 7:21 AM EDT Pharmacy escribed requesting the following refill. Requested Prescriptions Pending Prescriptions Disp Refills omeprazole (PRILOSEC) 20 mg capsule [Pharmacy Med Name: OMEPRAZOLE DR 20 MG CAPSULE] 90 capsule 1 Sig: TAKE 1 CAPSULE BY MOUTH EVERY DAY Patient last appointment: 08/13/2020 Patient Phone numbers: [phone] (home) Request is for script(s) to be escript to pharmacy. Judy Patel MA documented [facility] NoteCONSULTATION CONSULTATION DATE: 02/10/2022 This is a [...] changes in the weather. She reports her stone rubber hours are the worst. She denies any [...] time and the patient is in agreement.[facility] CenterBnlfeuau06-83-2342 NoteCONSULTATION CONSULTATION DATE: 11/26/2021 HISTORY OF PRESENT [...] Patient agrees with the plan of care. [facility] Signed and Approved by: SWEETIE ROBERTS . 12/03/2021 16:05:00[facility]08-13-2020 History of Present illness Narrative* Gail Ferrari [...] 2020 TIME: 9:41 AM documented in this encounter[facility]12-03-2012 History of Past illness Narrative* Problem Noted Date Resolved Date Screening breast examination 06/05/2012 Chest pain 09/17/2011 05/03/2013 Abnormal mammogram 08/02/2011 11/04/2017 Screening breast examination 03/30/2011 Colon cancer screening 03/03/2009 2 Degeneration of lumbar or lumbosacral interverte bral disc 01/24/2009 10/22/2013 Dyspareunia 11/04/2017 Tobacco user 05/03/2013 documented as of this encounter (statuses as of 02/01/2022) [facility]12-03-2012 History of Past illness Narrative* Problem Noted Date Resolved Date Screening breast examination 06/05/2012 Chest pain 09/17/2011 05/03/2013 Abnormal mammogram 08/02/2011 11/04/2017 Screening breast examination 03/30/2011 Colon cancer screening 03/03/2009 2 Degeneration of lumbar or lumbosacral interverte bral disc 01/24/2009 10/22/2013 Dyspareunia 11/04/2017 Tobacco user 05/03/2013 documented as of this encounter (statuses as of 05/07/2022) [facility]12-03-2012 History of Past illness Narrative* Problem Noted Date Resolved Date Screening breast examination 06/05/2012 Chest pain 09/17/2011 05/03/2013 Abnormal mammogram 08/02/2011 11/04/2017 Screening breast examination 03/30/2011 Colon cancer screening 03/03/2009 2 Degeneration of lumbar or lumbosacral interverte bral disc 01/24/2009 10/22/2013 Dyspareunia 11/04/2017 Tobacco user 05/03/2013 documented as of this encounter (statuses as of 06/21/2022) [facility]12-03-2012 History of Past illness Narrative* Problem Noted Date Diagnosed Date Resolved Date Screening breast examination 06/05/2012 05/03/2013 Chest pain 09/17/2011 05/03/2013 Abnormal mammogram 08/02/2011 8 Screening breast examination 03/30/2011 08/02/2011 Colon cancer screening 03/03/200908/02 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 01/24/2009 10/22/2013 Dyspareunia 11/04/2017 Tobacco user 05/03/2013 documented as of this encounter (statuses as of 05/08/2023) [facility] + Plan note No data available for this section [facility]* Diagnosis Encounter for screening mammogram for breast cancer documented in this encounter [facility] note* Diagnosis Onset Date Resolution Status Encounter for screening colonoscopy [facility] Work Phone: Evaluation note* Diagnosis Chronic mixed headache syndrome Other headache syndromes documented in this encounter [facility] noteNo [facility] [place] Other Hospital Discharge instructions Additional Instructions DISCHARGE [...] kiwi fruit Repeat colonoscopy in 5 years [facility] 1 p.o. every morning -Notify the doctor if you have any problems. -Office number [phone] Work Phone: Hospital Discharge instructions No data available for this section [facility]* Name Dates Details Instructions not documented [facility] Work Phone: Progress note No data available for this section [facility] HospitalReason for referral (narrative)* Diagnostic Procedure Only (Routine) - Pending Review Specialty Diagnoses / Procedures Referred By Zaid gutiérrez Referred To Contact [facility] Diagnoses Encounter for screening mammogram for breast cancer Procedures DOLORES SCREENING SCREENING MAMMOGRAPHY BI 2-[place] [address] [place] [address] [facility] [address] [place] [address] Referral ID Status Reason Start Date Expiration Date Visits Requested Visits Authorized [id number] Pending Review Auto-Generat ed Referral 2 07/16/2023 1 1 [facility] for [facility] ([facility]ative)* Diagnostic Procedure Only (Routine) - Closed Specialty Diagnoses / Procedures Referred By Zaid gutiérrez Referred To Contact [facility] IMAGING Diagnoses Chronic mixed headache syndrome G44.89 (ICD-10-CM) - Chronic mixed headache syndrome Procedures MRI BRAIN WO/W IVCON MRI BRAIN COMBO MRI BRAIN WO/[place] Jyoti García [place] [address] [place] [address] [place] [id number] Referral ID Status Reason Start Date Expiration Date V isits Requested Visits Authorized [id number] Closed Auto-Generate d Referral 02/11/2020 07/03/2020 1 1 [facility] Summary Purpose Family History No Family History Records Found Relationship Condition Age at Onset Recorded Date/T bishop brother Malignant neoplasm of colon Unknown sister Malignant neoplasm of bone Unknown sister Malignant neoplasm of pancreas Unknown Advance Directives No Advanced Directives Records FoundDocuments on File Type Date Recorded Patient Data Collection Interviewer Expl anation Advance Directive(s) 10/31/2018 9:16 AM Advance Directive(s) 12/04/2012 9:42 PM Advance Directive(s) 11/29/2012 9:09 PM Documents on File Type Date Recorded Patient Data Collection Interviewer Expl anation Advance Directive(s) 12/04/2012 9:42 PM Advance Directive(s) 11/29/2012 9:09 PM Documents on File Type Date Recorded Patient Data Collection Interviewer Expl anation Advance Directive(s) 12/04/2012 9:42 PM [...] Diagnosis 1 Post-nasal drainage (R09.82) Referral Organization [facility] Referring Provider First Name Sharonda Referring Provider Last Name Michele Referring Provider Specialty Family [facility] cine Referred Organization [facility] Referred Provider Shaan Villalta Referred Address ,[place], [place],[address] Referred Provider Specialty Ear, Nose an d Throat Referral Priority Routine General Notes Inessa Vitale 02:51:01 PM >received today, notes locked, ins attached, referral faxed Additional Source Comments INFORMATION SOURCE (unrecogn ized section and content) DATE CREATED AUTHOR 11/12/2018 [facility] DATE CREATED AUTHOR AUTHOR'S ORGANIZ ATION 06/18/2019 [facility] DATE CREATED AUTHOR AUTHOR'S ORGANIZ ATION 05/01/2020 [employer] DATE CREATED AUTHOR AUTHOR'S ORGANIZ ATION 08/01/2022 [facility] DATE CREATED AUTHOR AUTHOR'S ORGANIZ ATION 10/26/2022 [facility] DATE CREATED AUTHOR AUTHOR'S ORGANIZ ATION 05/30/2023 [facility] DATE CREATED AUTHOR AUTHOR'S ORGANIZ ATION 07/07/2023 [facility] DATE CREATED AUTHOR AUTHOR'S ORGANIZ ATION 08/20/2023 [facility] DATE CREATED AUTHOR AUTHOR'S ORGANIZ ATION 09/06/2023 [facility] DATE CREATED AUTHOR AUTHOR'S ORGANIZ ATION 12/24/2023 [facility] Source Comments (unrecognize d section and content) In the event this informatio n is protected by the Federal Confidentiality of Alcohol and Drug Abuse Patient Records regulations: The Federal rules restrict any use of the information to criminally investigate or prosecute any alcohol or drug abuse patient.[facility] the event this information is protected by the Federal Confidentiality of Alcohol and Drug Abuse Patient Records regulations: The Federal rules restrict any use of the information to criminally investigate or prosecute any alcohol or drug abuse patient.[facility] CampusIn the event this information is protected by the Federal Confidentiality of Alcohol and Drug Abuse Patient Records regulations: The Federal rules restrict any use of the information to criminally investigate or prosecute any alcohol or drug abuse patient.[facility] CampusIn the event this information is protected by the Federal Confidentiality of Alcohol and Drug Abuse Patient Records regulations: The Federal rules restrict any use of the information to criminally investigate or prosecute any alcohol or drug abuse patient.[facility] Reason for Visit (unrecogniz ed section and content) Reason Comments Refill Request Reason Comments Radiology MRI Specialty Diagnoses / Procedures Referred By Contac t Referred To Contact MR IMAGING Diagnoses Chronic mixed headache syndrome G44.89 (ICD-10-CM) - Chronic mixed headache syndrome Procedures MRI BRAIN WO/W IVCON MRI BRAIN COMBO MRI BRAIN WO/W IVCON Jyoti García [place] [address] [place] [address] Mr Imaging [place] [address] Referral ID Status Reason Start Date Expiration Date V isits Requested Visits Authorized [id number] Closed Auto-Generate d Referral 02/11/2020 07/03/2020 1 1 Care Teams (unrecognized sec tion and content) 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 Specialty Start Date End Date Jyoti García [place] [address] [place] [address] PCP - General Internal Medicine 09/11/19 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 Specialty Start Date [place] Jyoti García [place] [address] [place] [address] PCP - General Internal Medicine 09/11/19 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 Specialty Start Date [place] Jyoti García [place] [address] [place] [address] PCP - General Internal Medicine 09/11/19 Team Status: Inactive Member Role Status Dates Enrrique Grant MD Attending Provider Active Jameel Manzanares MD Primary Care Provider Active Team Status: Active Member Role Status Dates Jameel Manzanares MD Primary Care Provider Active 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 [employer] [facility]. provides no warranty or guarantee of the accuracy or completeness of information in this document.
[2024-02-21 07:16] VITALS: BP 116/83; PULSE 76; TEMP 36.7; O2SAT 99
[2024-02-21 08:02] VITALS: BP 120/76; PULSE 63; O2SAT 97
[2024-02-21 08:06] VITALS: BP 125/78; PULSE 65; O2SAT 98
[2024-02-21] MEDS: BUPIVACAINE HCL 0.25% PF 25 MG/10 ML VIAL 5 ML INJ (08:07)
--- NOTE | 2024-02-21 08:28 | P.ON_ITS ---
Date of procedure: 02/21/24 Pre-op diagnosis: Lumbar spondylosis Post-op diagnosis: same as pre-op Procedure: Bilateral Lumbar 4/5, 5/sacral 1 medial branch block Preop diagnosis includes pain secondary to spondylosis, Postop diagnosis same Under fluoroscopic guidance Solution injected: 2milliliters Marcaine 0.25% Anesthesia :none Immediate complications none Time out process compliant After informed consent obtained from the patient placed in the Prone proposition . area was prepped and draped in a sterile fashion using betadine .25 gauge spinal needle inserted over each of the above mentioned target areas . [place] were directed towards the target under fluoroscopic guidance . after encountering each of the targets , no indication of intravascular intraneuronal or intrathecal needle tip placement. Then 0 .5 to 1 Milliliter was injected at each level. Coldwater removed postoperatively. patient transferred to recovery in stable condition to be discharged home after meeting criteria Anesthesia: Local Surgeon: Jarvis Camp Condition: stable
== END 2024-02-21 08:12 | disposition home or self-care (01) ==
LOC: SURGOUT 07:02
PROVIDERS: PCP Family Medicine; Visit Provider Anesthesiology Pain Medicine
DX: M47.816 Spondylosis without myelopathy or radiculopathy, lumbar region (principal)
CPT/HCPCS: 64493; 64494; J0665

== ENCOUNTER 2024-02-22 13:03 | Outpatient (OUT) | payer MEDICARE, SELFPAY ==
--- NOTE | 2024-02-22 13:35 | P.CN_ITS ---
Consult Note: HPI Data of Consult Patient: known to practice within the last 3 years Requesting Physician: Janet Ramirez NP Primary Care Provider: Estelle Bautista MD Consult Narrative Reason for consult: f/u Narrative: Ann Marie Mccain a pleasant 68 year old female presents for evaluation and management of chronic low back pain. Patient has a longstanding history of chronic low back pain secondary for lumbar spondylosis, previous lumbar RFAs with Dr Lake provided >50% improvement greater than 6 months. Patient engaged in PT/aquatherapy ongoing without benefit, historically has failed to benefit from PT greater than 6 weeks. Patient utilizing advil and tylenol with mild benefit, moderate relief from baclofen 5-10mg TID PRN and voltaren gel. MRI previoulsy ordered but has been denied until PT completed. Patient underwent bilateral L4-5 L5-S1 MBB #1 with significant pain relief, greater than 80% improvement for 6 hours following the injection. Patient was able to tolerate standing, walking, and housework with significantly less pain. cc:: CC: Janet Ramirez NP Review of Systems ROS Status of ROS 10 or more systems reviewed and unremark able except as noted in history and below Musculoskeletal Reports: back pain Meds Home Medications and Allergies Home Medications ?Medication ?Instructions ?Recorded ?Confirmed ?Type alendronate 35 mg tablet 35 mg PO .WEEKLY 06/30/23 02/21/24 History alprazolam 1 mg tablet 1 mg PO TID 06/30/23 02/21/24 History montelukast 10 mg tablet 10 mg PO BID 06/30/23 02/21/24 History omeprazole 20 mg capsule,delayed mg 06/30/23 History release travoprost 0.004 % eye drops drp ophthalmic (eye) 06/30/23 History amlodipine 5 mg tablet 2.5 mg PO DAILY 02/08/24 02/21/24 History ascorbic acid (vitamin C) 500 mg mg PO 02/08/24 History capsule aspirin 81 mg capsule 81 mg PO DAILY 02/08/24 02/21/24 History baclofen 10 mg tablet 10 mg PO TID PRN muscle spasm 02/08/24 02/21/24 History cholecalciferol (vitamin D3) 50 50 mcg PO DAILY 02/08/24 02/21/24 History mcg (2,000 unit) capsule collagen PO 02/08/24 History magnesium oxide 500 mg capsule 500 mg PO DAILY 02/08/24 02/21/24 History metoprolol tartrate 25 mg tablet 25 mg PO DAILY 02/08/24 02/21/24 History multivitamin 1 tab PO DAILY 02/08/24 02/21/24 History Allergies Allergy/AdvReac Type Severity Reaction Status Date / Time prochlorperazine Allergy Unknown Seizure Verified 02/21/24 07:12 [From Compazine] Sulfa (Sulfonamide Allergy Unknown Rash Verified 02/21/24 07:12 Antibiotics) Exam Constitutional Documenting provider has reviewed patient's vital signs: yes Common normals: no apparent distress, oriented x3, healthy appearing, alert and well nourished General appearance: cooperative HENMT Common normals: normocephalic, hearing grossly normal bilaterally and moist oral mucous membranes Head and scalp: normocephalic Eye Common normals: PERRL Pupil: PERRL Neck & C-Spine Common normals: full ROM General: normal visual inspection Cervical spine: pain with cervical ROM Chest Common normals: inspection of chest normal Respiratory Common normals: normal respiratory effort, no retractions and no use of acces andrei muscles Back & Pelvis Thoracic spine/upper back: ROM limited and pain with ROM Lumbar spine/lower back: ROM limited, pain with ROM, paraspinal muscle tenderness and straight leg raise negative bilaterally Other: positive facet loading bilaterally tenderness over L4-S1 facets Extremity Common normals: normal to inspection and full ROM Neuro Common normals: oriented x3, CN's II-XII intact bilaterally, moves all extremities, no focal motor deficits, no sensory deficits noted and deep tendon reflexes 2+ bilaterally Sensorium/orientation: alert Motor exam: strength 5/5 throughout and no movement abnormalities noted Psych Common normals: mental status grossly normal, thought process normal, cooperative, affect normal, speech normal and activity/motor behavior normal Speech: normal speech Thought process: normal thought process Results Additional Findings Additional findings: If on a controlled substance or opioids, I have checked an [place] report on this patient and there are no aberrancies noted in the prescribing history.??If on a controlled substance or opioid a drug screen was completed and reviewed within the last year, and if there has not been a drug screen completed we ordered one today to monitor higher risk, state monitored pain medication use. As part of providing excellent, safe, comprehensive care, the following was completed at our patient's visit: 1. A medication reconciliation and review to ensure accurate knowledge of current/active medications, including asking our patients to inform us about any [id number] medications or herbal remedies/nutritional supplements/alternative remedies. 2. A review to specifically ensure our patients have had annual screening for screening for depression, screening for tobacco use, and screening for unhealthy alcohol use. For concerning screenings had a discussion with the patient, provided patient education, and recommended follow-up with primary care provider when appropriate. If patient noted with a risk of falling, they received education on strength, gait, and balance training to prevent future risk of falling. Assessment and Plan Assessment and Plan (1) Lumbar spondylosis: (2) Chronic prescription benzodiazepine use: (3) Osteoarthritis: (4) Muscle spasm: (5) Thoracic spondylosis: Plan proceed with bilateral L4-5 L5-S1 MBB #2 working towards thermal RFA NNCP due to benzo use continue tylenol and NSAID use PRN continue PT/aquatherapy f/u after injection
== END 2024-02-22 13:04 | disposition home or self-care (01) ==
LOC: PM 13:03
PROVIDERS: PCP Family Medicine; Visit Provider Nurse Practitioner
DX: M47.816 Spondylosis without myelopathy or radiculopathy, lumbar region (principal); F13.20 Sedative, hypnotic or anxiolytic dependence, uncomplicated; M19.90 Unspecified osteoarthritis, unspecified site; M62.838 Other muscle spasm; M47.814 Spondylosis without myelopathy or radiculopathy, thoracic region
CPT/HCPCS: G0463

== ENCOUNTER 2024-03-20 07:55 | Day surgery (SDC) | payer MEDICARE, SELFPAY ==
--- OUTSIDE RECORDS SUMMARY | 2024-03-20 08:18 | XMS_ITS | CCD ---
Author Organization [facility] Care Team Providers Care Car Ferry Master Name Role Phone ERWIN DYE Attending Unavailable Abbass, Rami Unavailable Unavailable Unknown, Referring Provider Unavailable Unav ailable Abbass, Rami Unavailable Unavailable Chaya PAUL, Rami Unavailable Unavailable Unknown, Referring Provider Unavailable Unav ailable Raquel PAUL, Jyoti Lugo Primary Care Provider [phone] Raquel PAUL, Jyoti Lugo Primary Care Provider Raquel PAUL, Jyoti Lugo Primary Care Provider MD Enrrique Grant Attending Provider [phone] MD Jameel Manzanares Primary Care Provider Enrrique Grant Attending Unavailabl Enrrique Brambila Admitting Unavailabl e Bryson, Jameel Primary Care Unavailable Enrrique Grant Unavailable [phone] ROSANA ., DR ANTONELLA Lugo Consulting Unavailable [...] MADRID Admitting Unavailabl e NADERER, DR JAMEEL Elils Consulting Unavailable NADERER, DR JAMEEL Ellis Primary [...] Referring Unavailable TIMMIS, SHAAN H Attending Unavailable KEVIN, KARLOS Referring Unavailable KEVIN, KARLOS Referring Unavailable KIERAN PETERSEN Referring Unavailable GUILLEKIERAN Rock Referring Unavailable KEVIN, KARLOS Referring Unavailable KEVIN, KARLOS Referring Unavailable KEVIN, KARLOS Referring Unavailable KEVIN, KARLOS Referring Unavailable RUBI YOO Attending Unavailable KIERAN PETERSEN Admitting Unavailable KIERAN PETERSEN Attending Unavailable JOSE VILLALOBOS Attending Unavailable KIERAN PETERSEN Attending Unavailable KIERAN PETERSEN Attending Unavailable Allergies Allergy Classification Reported Allergen(s) Allergy Type Date of Onset Reaction(s) Facility Prochlorperazine (1 source) Prochlorperazine Drug Allergy [facility] [employer] Work Phone: Sulfonamides (antibiotic) (1 source) Sulfonamides (Antibiotic) Drug Allergy [facility] [employer] Work Phone: (5 sources) Hydroxychloroquine; 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: [HYDROXYCHLOROQUINE SULFATE] Drug Allergy 006 Rash [facility] Repository (8 sources) Sulfonamides (Antibiotic); 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: [SULFA (SULFONAMIDE ANTIBIOTICS)] Propensity to adverse reactions to drug (disorder) Unknown Reaction [facility] Repository (6 sources) AMOXICILLIN-POT CLAVULANATE; 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: [AMOXICILLIN-POT CLAVULANATE] Propensity to adverse reactions to drug (disorder) 019 Rash [facility] Repository (5 sources) PROCHLORPERAZINE EDISYLATE; 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: [PROCHLORPERAZINE EDISYLATE] Propensity to adverse reactions to drug (disorder) 006 [facility] Repository (4 sources) Sulfonamides (Antibiotic) drug allergy [facility] [employer] Work Phone: (1 source) drug allergy [facility] [employer] Work Phone: (13 sources) Prochlorperazine; 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: [Compazine] Drug Allergy Unknown [facility] Repository (6 sources) Prochlorperazine; 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: [PROCHLORPERAZINE] Drug Allergy 006 Other: See Comments [facility] [place] (5 sources) traMADol; 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: [TRAMADOL] Drug Allergy 019 Intolerance, GI Upset [facility] [place] (1 source) Prochlorperazine Drug Allergy 023 [facility] Repository (9 sources) Sulfacetamide / Sulfur Drug Allergy Unknown [facility] Other (1 source) Sulfonamides (Antibiotic) Drug allergy (disorder) [facility] Repository (1 source) Hydroxychloroquine; 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: [HYDROXYCHLOROQUINE ] Drug Allergy 006 [facility] Repository Medications Current Medications Medication Drug Class(es) Dates Sig (Normalized) Sig (Original) [id number] 60 actuat albuterol 0.09 mg/actuat metered dose [...] Start: 06-21-2023 take 1 tablet by mali three times [...] Start: 03-28-2017 take 1 capsule by mo [facility] once daily Cholecalciferol, Vitamin D3, 2,000 [...] TAB PO Daily July 29, 2022 12:00am [place] 3 (9 sources) [place] 3 Active [place]-3 Fatty Acids (1 source) Start : 07-29 take 1000 mg by mouth once daily [place]-3 Fatty Acids Active 1000 MG PO Daily [...] Comment on above: TAKE 1 CAPSULE BY [facility] EVERY DAY travoprost (13 sources) Prostaglandin Analog [...] 12:00am Start: 07-07-[address] [facility] once daily coenzyme Q10 (CO Q-10) 100 mg cap capsule Take 1 capsule by mouth once daily. 0 07/07/2020 Active Comment on above: Take [address] [facility] once daily. Vitamin B Complex (1 [...] above: Take 1 tablet by mali th twice daily as needed for Muscle Spasm. [...] on above: Take 1 capsule by mo [facility] daily at bedtime for 30 days. [...] on above: Take 1 capsule by mo [facility] as needed. lubiprostone 0.008 mg oral [...] Start: 07-09-2020 take 1 tablet by mali every twenty-four hours as needed melatonin 10 [...] bedtime as needed. Take [address] [facility] once daily. MV with Pxb-Ztgegkvc-Vxoufs (CENTRUM SILVER) 0.4-300-250 mg-mcg-mcg tab (1 source) Start: 07-07-19 21 take 1 tablet by mouth once daily MV with Nmf-Vbznllew-Zlklnp (CENTRUM SILVER) 0.4-300-250 mg-mcg-mcg tab Take 1 [...] on above: Take 1 capsule by mo [facility] daily at bedtime. triamcinolone acetonide 40 [...] Date Documented Da te Episodic/Chronic Cardiac dysrhythmias (4 sources) Supraventricular tachycardia; 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: [SUPRAVENTRICULAR TACHYCARDIA] Onset: 3 Chronic Cardiac dysrhythmias (7 sources) Palpitations; 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: [PALPITATIONS] Onset: 2 Episodic Diverticulosis and diverticulitis (10 sources) Diverticular disease [...] 06-05-2012 Episodic Other aftercare (4 sources) Other predatory animal exterminator (current) drug therapy; 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: [OTH TANKERMAN CURRENT DRUG THERAPY] Onset: 2 Episodic Other [...] Value Interpretation Reference Range Facility Office Visiton 02-28-2024 Follow-up visit [id number] Marly Jaffe 1955 F Date Provider Department Center 02/28/2024 KIERAN FRIEDMAN [facility] Family History Problem Relation Age of Onset Stroke Mother Hypertension Mother Cancer Mother Stroke Father Other Father Family Status - Relation Status Age at Mother Father Level of Service:58608 HI OFFICE/OUTPATIENT ESTABLISHED LOW MDM 20 MIN Normal [facility] Office Visiton 12-01-2023 Follow-up visit [id number] Marly Jaffe 1955 F Date Provider Department Center 12/01/2023 RUBI PATEL [facility] Family History Problem Relation Age of Onset Stroke Mother Hypertension Mother Cancer Mother Stroke Father Other Father Family Status - Relation Status Age at Mother Father Level of Service:24606 HI OFFICE/OUTPATIENT NEW LOW MDM 30 MINUTES Normal [facility] CT Maxillofacial w/o Contras ton 08-19-2023 [...] Gordillo MD Transcribed by: CHRISTIAN Technologist: MARTELL Negro [facility] Consent for Treatmenton 08-04 Consent for Treatment [id number] #[id number] [facility] Physician Orderon 07-08-2023 Physician Order [id number] #1.00TIFF [facility] Office Visiton 06-20-2023 Follow-up visit [id number] Marly Jaffe 1955 F Date Provider Department Center 06/20/2023 Abraham-JOSE VILLALOBOS [facility] Family History Problem Relation Age of Onset Stroke Mother Hypertension Mother Cancer Mother Stroke Father Other Father Family Status - Relation Status Age at Mother Father Level of Service:69879 HI OFFICE/OUTPATIENT ESTABLISHED MOD MDM [address] [facility] HPon 05-19-2023 H&P reviewed. The patient was examined and there are no changes to the H&P. [facility] HP H&P reviewed. The patient was examined and there are no changes to the H&P. [facility] NURSNOTEon 05-19-[address] Petersen for pt to discharge at this time. [facility] CRISTALE RN educated pt on d/c instructions. RN encouraged pt to voice any questions or concerns. Pt verbalizes no questions or concerns at this time. Pt was wheeled off of unit with all of belongings. [facility] HPon 04-26-2023 [facility] Cardiology Consult Note Reason for [...] oriented to (more content not included)... Normal [facility] Office Visiton 04-26-2023 Follow-up visit [id number] Marly Jaffe 1955 F Date Provider Department Center 04/26/2023 KIERAN FRIEDMAN [facility] Family History Problem Relation Age of Onset Stroke Mother Hypertension Mother Cancer Mother Stroke Father Other Father Family Status - Relation Status Age at Mother Father Level of Service:87062 HI OFFICE/OUTPATIENT ESTABLISHED [facility]54 MIN Normal [facility] CT LUNG CANCER SCREENINGon 0 08-04-2022 [...] by: ÁNGEL PUGH Date: 2022-08-04 14:41 Normal [facility] XR RIBS BIL_PA CH 4V OR GRon [...] by: ÁNGEL PUGH Date: 2022-08-04 14:45 Normal [facility] XR TSPINE MIN 4 VIEWSon XR TSPINE [...] by: ÁNGEL PUGH Date: 2022-08-04 14:42 Normal [facility] [place] 07-29-2022 L Specimen: [id number] Received: 07/29/22 Status: HUY Malonewinifred Num: [id number] Spec Type: Surgical Subm Dr: Enrrique Grant MD Tissues: A Colon Biopsy (POLYP SIGMOID) Procedures: HE/2, Gross/Micro L4 Age/ Patient Sex Location Account Attending Physician Marly Jaffe 67/F [id number] Enrrique Grant MD SPEC NUM: [id number] RECD: 07/29/22 STATUS: HUY MEJIA NUM: [id number] SALOMON: 07/29/22- [facility] DR: Enrrique Grant MD ENTERED: 07/29/22 [facility] DR: ENRIQUETA TYPE: Surgical DEPT: S ORDERED: HE/2, Gross/Micro [...] support the above pathologic diagnosis. CPT Codes 24673 Specimen: [id number] Received: 07/29/22 Status: HUY Mejia Num: [id number] Spec Type: Surgical Subm Dr: Enrrique Grant MD Tissues: A Colon Biopsy (POLYP SIGMOID) Procedures: ANGELICA/Tadeo Cabrera/Christophe L4 Patient: Marly Jaffe [id number] (Continued) Signed (signature on file) Benjamin Wolf MD 07/30/22 1133 Normal [facility] ECHOCARDIO M/2D COMPLETEon 0 07-13-2022 ECHOCARDIO M/2D COMPLETE Patient: MARLY JAFFE Exam Date: 07/13/2022 : 1955 Gender:F Ordering : KIERAN LAIO Admission #: [id number] Family : Order #: [id number] CLICK HERE TO VIEW EXAM ECHOCARDIOGRAM REPORT [...] Mak M.D. on 07/15/2022 at 10:33 Normal [facility] MG MAMM SCREEN 3D LAWRENCE CADon 06-23-2022 MG MAMM SCREEN 3D LAWRENCE CAD Patient: MARLY JAFFE Exam Date: 06/23/2022 : 1955 Gender:F Ordering : DR MERCY MORGAN . Admission #: [id number] Family : Order #: [id number] CLICK HERE TO VIEW EXAM RADIOLOGY REPORT [...] colon cancer at age 51. LOCATION: [facility] BREAST COMPOSITION: Scattered areas fibroglandular density. [...] Pugh M.D. on 06/23/2022 at 14:39 Normal [facility] PAP ACOG PANEL 2: 30 to 65on 06-23-2022 . . Normal [facility] Comment on above: Performed By: #### 4 [id number] #### [facility] [address] [address] [address] Jeramy Dumont Age Gdln ACOG Testing Comment Normal [facility] Comment on above: Result Comment: <21 or >65 or no age provided Performed By: #### 4 [id number] #### [facility] [address] [address] [address] Jeramy Dumont DIAGNOSIS: Comment Normal [facility] Comment on above: Result Comment: NEGA TIVE FOR INTRAEPITHELIAL LESION OR MALIGNANCY. REACTIVE CELLULAR CHANGES AND/OR REPAIR ARE PRESENT. Performed By: #### 4 [id number] #### [facility] [address] [address] [address] Jeramy Dumont Electronically signed by: Comment Normal [facility] Comment on above: Result Comment: Bere Aguilar MD, Pathologist Performed By: #### 4 [id number] #### [facility] [address] [place] [address] Dr. Jeramy Dumont Methodology: Comment Normal [facility] Comment on above: Result Comment: This liquid based ThinPrep(R) pap test was screened with the use of an image guided system. Performed By: #### 4 [id number] #### [facility] [address] [place] [address] Dr. Jeramy Dumont Note: Comment Normal [facility] Comment on above: Result Comment: The Pap smear is a screening test designed to aid in the detection of premalignant and malignant conditions of the uterine cervix. It is not a diagnostic procedure and should not be used as the sole means of detecting cervical cancer. Both false-positive and false-negative reports do occur. . Performed By: #### 4 [id number] #### [facility] [address] [place] [address] Dr. Jeramy Dumont Performed by: Comment Normal [facility] Comment on above: Result Comment: Norma Mancia Wallpaper Scraper (ASCP) Performed By: #### 4 [id number] #### [facility] [address] [place] [address] Dr. Jeramy Dumont Specimen adequacy: Comment Normal [facility] Comment on above: Result Comment: Sati sfactory for evaluation. Endocervical and/or squamous metaplastic cells (endocervical component) are present. Performed By: #### 4 [id number] #### [facility] [address] [place] [address] Dr. Jeramy Dumont XR DEXA BONE DENSITYon [...] ÁNGEL PUGH Date: 2022-06-23 11:46 Normal [facility] CBC AUTO DIFFon 04-27-2022 BASO # 0.1 103/ul Normal 0.0-0.1 [facility] Comment on above: Performed By: #### C BC ####[facility] [address] [address]Dr. Jeramy Dumont Basophils/100 WBC (Bld) 0.6 % Normal 0.2-2.0 [facility] Comment on above: Performed By: #### C BC ####[facility] [address] [place], [place] [address]Dr. Jeramy Dumont EO # 0.2 103/ul Normal 0.0-0.7 [facility] Comment on above: Performed By: #### C BC ####[facility] [address] [place], [place] [address]Dr. Jeramy Dumont Eosinophils/100 WBC (Bld) 1.9 % Normal 0.9-7.0 [facility] Comment on above: Performed By: #### C BC ####[facility] [address] [place], [place] [address]Dr. Jeramy Dumont Erythrocyte distribution width (RBC) [Ratio] 13.3 % Normal 11.0-15.0 [facility] Comment on above: Performed By: #### C BC ####[facility] [address] [place], [place] [address]Dr. Jeramy Dumont Hematocrit (Bld) [Volume fraction] 41.1 % Normal 36.0-48.0 [facility] Comment on above: Performed By: #### C BC ####[facility] [address] [place], [place] [address]Dr. Jeramy Dumont Hemoglobin (Bld) [Mass/Vol] 13.4 g/dL Normal 12.0-16.0 [facility] Comment on above: Performed By: #### C BC ####[facility] [address] [address]Dr. Jeramy Dumont IG # 0.02 10e3/ul Normal 0.00-0.03 [facility] Comment on above: Performed By: #### C BC ####[facility] [address] [address]Dr. Jeramy Dumont IG % 0.2 % Normal 0.0-0.5 [facility] Comment on above: Performed By: #### C BC ####[facility] [address] [address]Dr. Jeramy Dumont LYMPH # 3.2 103/ul Normal 1.2-3.8 [facility] Comment on above: Performed By: #### C BC ####[facility] [address] [address]Dr. Jeramy Dumont Lymphocytes/100 WBC (Bld) 39.1 % Normal 20.5-60.0 [facility] Comment on above: Performed By: #### C BC ####[facility] [address] [address]Dr. Jeramy Dumont MANUAL DIFF REQ NO Normal [facility] Comment on above: Performed By: #### C BC ####[facility] [address] [address]Dr. Jeramy Dumont MCH (RBC) [Entitic mass] 30.7 pg Normal 26.7-34.0 [facility] Comment on above: Performed By: #### C BC ####[facility] [address] [place], [place] [address]Dr. Jeramy Dumont MCHC (RBC) [Mass/Vol] 32.6 g/dL Normal 29.9-35.2 [facility] Comment on above: Performed By: #### C BC ####[facility] [address] [address]Dr. Jreamy Dumont MCV (RBC) [Entitic vol] 94.3 fL Normal 81.0-99.0 [facility] Comment on above: Performed By: #### C BC ####[facility] [address] [address]Dr. Jeramy Dumont MONO # 0.6 103/ul Normal 0.3-0.8 [facility] Comment on above: Performed By: #### C BC ####[facility] [address] [address]Dr. Jeramy Dumont Monocytes/100 WBC (Bld) 6.6 % Normal 1.7-12.0 [facility] Comment on above: Performed By: #### C BC ####[facility] [address] [address]Dr. Jeramy Dumont NEUT # 4.3 103/ul Normal 1.4-6.5 [facility] Comment on above: Performed By: #### C BC ####[facility] [address] [place], [place] [address]Dr. Jeramy Dumont Neutrophils/100 WBC (Bld) 51.6 % Normal 43.0-75.0 [facility] Comment on above: Performed By: #### C BC ####[facility] [address] [place], [place] [address]Dr. Jeramy Dumont Platelet mean volume (Bld) [Entitic vol] 9.8 fL Normal 9.5-13.5 [facility] Comment on above: Performed By: #### C BC ####[facility] [address] [address]Dr. Jeramy Dumont PLT 283 103/ul Normal 150-450 [facility] Comment on above: Performed By: #### C BC ####[facility] [address] [place], [place] [address]Dr. Jeramy Dumont RBC 4.36 106/ul Normal 4.20-5.40 [facility] Comment on above: Performed By: #### C BC ####[facility] [address] [address]Dr. Jeramy Dumont WBC 8.3 103/ul Normal 4.0-11.0 [facility] Comment on above: Performed By: #### C BC ####[facility] [address] [address]DrTeddy Dumont FREE T3on 04-27-2022 FREE T3 2.20 pg/mlL Normal 2.18-3.98 [facility] Comment on above: Performed By: #### F T3, TSH, BMP, LIVER ####[facility] [address] [address]Dr. Jeramy Dumont FREE T4on 04-27-2022 Free T4 [Mass/Vol] 0.96 ng/dL Normal 0.76-1.46 [facility] Comment on above: Performed By: #### F T4 ####[facility] [address] [address]DrTeddy Dumont LIVER PROFILEon 04-27-2022 Albumin [Mass/Vol] 3.7 g/dL Normal 3.4-5.0 [facility] Comment on above: Performed By: #### F T3, TSH, BMP, LIVER #### [facility] [address] [address] [address] Jeramy Dumont Albumin/Globulin [Mass ratio] 1.1 {ratio} Normal [facility] Comment on above: Performed By: #### F T3, TSH, BMP, LIVER #### [facility] [address] [address] [address] Jeramy Dumont ALP [Catalytic activity/Vol] 64 U/L Normal 46-116 [facility] Comment on above: Performed By: #### F T3, TSH, BMP, LIVER #### [facility] [address] [address] [address] Jeramy Dumont ALT [Catalytic activity/Vol] 28 U/L Normal 14-59 [facility] Comment on above: Performed By: #### F T3, TSH, BMP, LIVER #### [facility] [address] [address] [address] Jeramy Dumont AST [Catalytic activity/Vol] 16 U/L Normal 15-37 [facility] Comment on above: Performed By: #### F T3, TSH, BMP, LIVER #### [facility] [address] [address] [address] Jeramy Dumont BILI, CONJUGATED 0.1 mg/dL Normal 0.0-0.[address] [facility] Comment on above: Performed By: #### F T3, TSH, BMP, LIVER #### [facility] [address] [address] [address] Jeramy Dumont Bilirubin [Mass/Vol] 0.2 mg/dL Normal 0.2-1.0 [facility] Comment on above: Performed By: #### F T3, TSH, BMP, LIVER #### [facility] [address] [place] [address] Dr. Jeramy Dumont Globulin (S) [Mass/Vol] 3.5 g/dL Normal [facility] Comment on above: Performed By: #### F T3, TSH, BMP, LIVER #### [facility] [address] [place] [address] Dr. Jeramy Dumont Protein [Mass/Vol] 7.2 g/dL Normal 6.4-8.2 [facility] Comment on above: Performed By: #### F T3, TSH, BMP, LIVER #### [facility] [address] [place] [address] Dr. Jeramy Dumont PROF CHEM 8 (BAS METB)on Anion gap [Moles/Vol] 10.3 mmol/L Normal [facility] Comment on above: Performed By: #### F T3, TSH, BMP, LIVER #### [facility] [address] [place] [address] Dr. Jeramy Dumont Calcium [Mass/Vol] 9.0 mg/dL Normal 8.5-10.1 [facility] Comment on above: Performed By: #### F T3, TSH, BMP, LIVER #### [facility] [address] [place] [address] Dr. Jeramy Dumont Chloride [Moles/Vol] 105 mmol/L Normal 98-107 [facility] Comment on above: Performed By: #### F T3, TSH, BMP, LIVER #### [facility] [address] [place] [address] Dr. Jeramy Dumont CO2 [Moles/Vol] 30.7 mmol/L Normal 21.0-32.[address] [facility] Comment on above: Performed By: #### F T3, TSH, BMP, LIVER #### [facility] [address] [address] [address] Jeramy Dumont Creatinine [Mass/Vol] 0.85 mg/dL Normal 0.55-1.02 [facility] Comment on above: Performed By: #### F T3, TSH, BMP, LIVER #### [facility] [address] [address] [address] Jeramy Dumont EGFR-AF SAO TOMEAN >60 Normal >=[address] [facility] Comment on above: Performed By: #### F T3, TSH, BMP, LIVER #### [facility] [address] [place] [address] Dr. Jeramy Dumont EGFR-NON AF SAO TOMEAN >60 Normal >=60 [facility] Comment on above: Performed By: #### F T3, TSH, BMP, LIVER #### [facility] [address] [place] [address] Dr. Jeramy Dumont Glucose [Mass/Vol] 101 mg/dL Normal 74-106 [facility] Comment on above: Performed By: #### F T3, TSH, BMP, LIVER #### [facility] [address] [place] [address] Dr. Jeramy Dumont Potassium [Moles/Vol] 4.0 mmol/L Normal 3.5-5.1 [facility] Comment on above: Performed By: #### F T3, TSH, BMP, LIVER #### [facility] [address] [address] [address] Jeramy Dumont Sodium [Moles/Vol] 142 mmol/L Normal 136-145 [facility] Comment on above: Performed By: #### F T3, TSH, BMP, LIVER #### [facility] [address] [place] [address] Dr. Jeramy Dumont Urea nitrogen [Mass/Vol] 15.0 mg/dL Normal 7.0-18.0 [facility] Comment on above: Performed By: #### F T3, TSH, BMP, LIVER #### [facility] [address] [place], [place] [address] Dr. Jeramy Dumont Urea nitrogen/Creatinine [Mass ratio] 17.6 mg/mg Normal [facility] Comment on above: Performed By: #### F T3, TSH, BMP, LIVER #### [facility] [address] [place], [place] [id number] Dr[address] Jeramy Dumont TSHon 04-27-2022 TSH 0.960 uIU/mL Normal 0.358-3.740 [facility] Comment on above: Performed By: #### F T3, TSH, BMP, LIVER ####[facility] [address] [place], [place] [address]NnDr. Jeramy Dmuont Covid-19 PCR ([facility]on 10-03 SARS-CoV-2 (COVID-19) RNA TRAVON+probe Ql (Unsp spec) Not detected Normal NOT DETECTED [facility] Comment on above: Result Comment: This test is not yet approved or cleared by the [place] FDA. When there are no FDA-approved or cleared tests available, and other criteria are met, FDA can make tests available under an emergency access mechanism called an Emergency Use Authorization (EUA). The EUA for this test is supported by the [place] of Health and Human Service's (HHS's) declaration [...] consistent with SARS-CoV-2. Performed By: #### C VDTBH ####[facility] [address] [place], [place] [address]BoDr. Jeramy Dumont Established Visit (Gastroent erology)on 04-30-2020 Established Visit (Gastroenterology) Diagnoses/Problems Assessed Chronic idiopathic constipation (564.00) (K59.04) Esophageal reflux (530.81) (K21.9) Orders Chronic idiopathic constipation Start: Amitiza 8 MCG Oral Capsule; Take 1 capsule twice daily Rx By: Krzysztof Larkin; Dispense: 0 Days ; #:60 Capsule; Refill: 1;For: Chronic idiopathic constipation; ASHLYN = N; Verified Transmission to [facility]; Last Updated By: [email or web address]; 04/30/2020 1:37:03 PM Esophageal reflux Renew: Omeprazole 20 MG Oral Capsule Delayed Release; TAKE 1 CAPSULE DAILY Rx By: Krzysztof Larkin; Dispense: 0 Days ; #:90 Capsule; Refill: 1;For: Esophageal reflux; ASHLYN = N; Verified Transmission to [facility]; Last Updated By: [email or web address]; 04/30/2020 1:37:11 PM Patient Discussion/Summary Change omeprazole [...] Daily Oral Tablet Vitals Vital Signs Recorded: [id number] 01:17PM Dqmezvobyzr77 F Height5 ft 3 in Ifjfzs687 lb BMI Fxvfndwlle43.74 BSA Calculated1.63 Physical Exam Constitutional General appearance: [...] Apr 30 2020 1:41PM EST (Author) Normal [facility] MRI BRAIN WO/W IVCONon 02-13 [facility] [place] C-Reactive Proteinon 019 CRP mass conc mg/L Normal 0.0-0.[address] [facility] Comment on above: Performed By: #### C BCDIF, CRP #### [address] [place] [address] #### WSR #### [facility] [address] [place] [address] CBC and Differentialon 10-31 Abs Baso 0.05 k/uL Normal <0.[address] [facility] Comment on above: Performed By: #### C BCDIF, CRP #### [address] [place] [address] #### WSR #### [facility] [address] [place] [address] Abs Garza 0.49 k/uL Normal <0.[address] [facility] Comment on above: Performed By: #### C BCDIF, CRP #### [address] [place] [address] #### WSR #### [facility] [address] [place] [address] Abs Neut 6.28 k/uL Normal 1.45-7.[address] [facility] Comment on above: Performed By: #### C BCDIF, CRP #### [address] [place] [address] #### WSR #### [facility] [address] [place] [address] Absolute nRBC <0.01 Normal <0.[address] [facility] Comment on above: Performed By: #### C BCDIF, CRP #### [address] [place] [address] #### WSR #### [facility] [address] [place] [phone] Basophils/100 WBC (Bld) 0.6 % Normal [facility] Comment on above: Performed By: #### C BCDIF, CRP #### [address] [place] [address] #### WSR #### [facility] [address] [place] [phone] DTYPE Auto Diff [facility] Comment on above: Performed By: #### C BCDIF, CRP #### [address] [place] [address] #### WSR #### [place] [address] [address] [phone] Eosinophils #/vol (Bld) 0.08 10*3/uL Normal <0.[address] [facility] Comment on above: Performed By: #### C BCDIF, CRP #### [address] [place] [address] #### WSR #### [place] [address] [place] [phone] Eosinophils/100 WBC (Bld) 0.9 % Normal [facility] Comment on above: Performed By: #### C BCDIF, CRP #### [address] [place] [address] #### WSR #### [facility] [address] [place] [phone] Erythrocyte distribution width Ratio (RBC) 13.5 % Normal 11.5-15.[address] [facility] Comment on above: Performed By: #### C BCDIF, CRP #### [address] [place] [address] #### WSR #### [place] [address] Hematocrit Volume Fraction (Bld) 42.3 % Normal 36.0-46.[address] [facility] Comment on above: Performed By: #### C BCDIF, CRP #### [address] [place] [address] #### WSR #### [place] [address] Hemoglobin mass conc (Bld) 14.0 g/dL Normal 11.5-15.[address] [facility] Comment on above: Performed By: #### C BCDIF, CRP #### [address] [place] [address] #### WSR #### [place] [address] Lymphocytes #/vol (Bld) 2.07 10*3/uL Normal 1.00-4.[address] [facility] Comment on above: Performed By: #### C BCDIF, CRP #### [address] [place] [address] #### WSR #### [place] [phone] Lymphocytes/100 WBC (Bld) 23.1 % Normal [facility] Comment on above: Performed By: #### C BCDIF, CRP #### [address] [place] [address] #### WSR #### [place] [phone] MCH Entitic mass (RBC) 31.1 pG Normal 26.0-34.0 [facility] Comment on above: Performed By: #### C BCDIF, CRP #### [address] [place] [address] #### WSR #### [facility] [address] [place], [place] [address] MCHC mass conc (RBC) 33.1 g/dL Normal 30.5-36.0 [facility] Comment on above: Performed By: #### C BCDIF, CRP #### [address] [place] [place] [address] #### WSR #### [facility] [address] [place] [phone] MCV Entitic volume (RBC) 94.0 fL Normal 80.0-100.[address] [facility] Comment on above: Performed By: #### C BCDIF, CRP #### [address] [place] [address] #### WSR #### [facility] [address] [place] [address] Monocytes/100 WBC (Bld) 5.5 % Normal [facility] Comment on above: Performed By: #### C BCDIF, CRP #### [address] [place] [address] #### WSR #### [facility] [address] [place], [place] [address] Neutrophils/100 WBC (Bld) 69.9 % Normal [facility] Comment on above: Performed By: #### C BCDIF, CRP #### [address] [place] [address] #### WSR #### [facility] [address] [place], [place] [address] NRBCs 0.0 /100 WBC Normal [address] [facility] Comment on above: Performed By: #### C BCDIF, CRP #### [address] [place] [place] [address] #### WSR #### [facility] [address] [place] [address] Platelet mean volume Entitic volume (Bld) 9.5 fL Normal 9.0-12.[address] [facility] Comment on above: Performed By: #### C BCDIF, CRP #### [address] [place] [place] [address] #### WSR #### [place] [address] [place] [address] Platelets #/vol (Bld) 279 10*3/uL Normal 150-400 [facility] Comment on above: Performed By: #### C BCDIF, CRP #### [address] [place] [place] [address] #### WSR #### [place] [address] RBC #/vol (Bld) 4.50 10*6/uL Normal 3.90-5.[address] [facility] Comment on above: Performed By: #### C BCDIF, CRP #### [address] [place] [place] [address] #### WSR #### [facility] [address] [place] [address] WBC #/vol (Bld) 8.97 10*3/uL Normal 3.70-11.[address] [facility] Comment on above: Performed By: #### C BCDIF, CRP #### [address] [place] [place] [address] #### WSR #### [facility] [address] [place] [address] ED NOTEon 10-31-2018 ED NOTE HNO ID: [id number] Author: Erwin Dye MD Service: Emergency Medicine Author Type: Physician Type: ED Notes Filed: 11/03/2018 2:16 PM Note Text: Doing better, followed up with spine [facility] ED NOTE HNO ID: [id number] Author: Vasquez BairesRn) STEVE Winchester Service: ? Author Type: Registered Nurse Type: ED Notes Filed: 10/31/2018 9:15 AM Note Text: Pt [facility] the ED [facility] c/c 04/12 lower back pain she [...] - notify physician of changes in condition [facility] ED NOTE HNO ID: [id number] Author: Lubna BairesRn) STEVE Dumont Service: ? Author Type: Registered Nurse Type: ED Notes Filed: 10/31/2018 9:08 AM Note Text: Bed: ED-15 Expected date: Expected time: Means of arrival: Comments: [facility] ED PROV NOTEon 10-31-2018 Protein mass conc HNO ID: [id number] Author: Erwin Dye MD Service: Emergency Medicine [...] has TENS unit at home. Evaluated by privacy specialist earlier today who advised her to [...] MD Erwin Zarco MD 10/31/[address] [facility] Sed Rate Westergrenon 2018 Sed Rate Westergren 8 mm/hr Normal 0-20 [facility] Comment on above: Performed By: #### C BCDIF, CRP #### [facility] [address] [place] [address] #### WSR #### [facility] [address] [place], [place] [address] Dermatopathologyon 9 Dermatopathology Pathologist: SETH BERNAL MD Date of Procedure: 09/12/2018 Date Received: 09/13/2018 Date Reported 09/14/2018 Submitting Physician: KEILY CRAIN MD Location: [facility] FINAL DIAGNOSIS SKIN, RIGHT CHURCH, EXCISION: CHANGES CONSISTENT WITH PREVIOUS PROCEDURE, PRESENT ON THE DEEP AND PERIPHERAL MARGIN WITHOUT RESIDUAL SQUAMOUS CELL CARCINOMA SEEN. Electronically Signed Out by SETH BERNAL M.D. Electronically Signed Out By SETH BERNAL MD/[facility] Microscopic Description: Microscopic examination reveals a specimen that extends into the subcutaneous fat. An area with horizontally oriented collagen and vertically oriented vessels is present. 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 Specimens Submitted As: A: SKIN, RIGHT CHURCH Gross Description: Received in formalin is a craig piece of skin measuring 16 x 5 x 1 mm. Inked and embedded in toto in two blocks. mlz/09/13/2018 Normal [facility] Comment on above: Performed By: #### D #### Dermatopathology Dermatopathologyon Dermatopathology Pathologist: SETH BERNAL MD Date of Procedure: 07/11/2018 Date Received: 07/12/2018 Date Reported 07/13/2018 Submitting Physician: KEILY CRAIN MD Location: [facility] FINAL DIAGNOSIS A. 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 B. SKIN, RIGHT CHURCH, BIOPSY: CONSISTENT WITH INVASIVE SQUAMOUS CELL CARCINOMA, WELL DIFFERENTIATED, PRESENT ON THE DEEP MARGIN, SEE NOTE. Note: Microscopic examination reveals a specimen that extends into the superficial dermis. There are areas of invagination of the epidermis with a slight downward bulbous growth pattern. There is mild to moderate solar elastosis. Electronically Signed Out by SETH BERNAL M.D. Electronically Signed Out By SETH BERNAL MD/[facility] Microscopic Description: A. 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 Clinical History: A: NAD. B: ISK vs. SCC. Specimens Submitted As: A: SKIN, RIGHT PHAM B: SKIN, RIGHT CHURCH Gross Description: A: Received in formalin is a craig-brown piece of skin measuring [id number]. The specimen is inked and embedded in toto. B: Received in formalin is a craig piece of skin measuring [id number]. The specimen is inked and embedded in toto. ink/07/12/2018 Normal [facility] Comment on above: Performed By: #### D #### Dermatopathology Vital Signs Date Time Vital Sign Value Performing Clinician Facility 06-02-2023 13:15-0500 Body height 160.02 cm Sharonda Calix Other [facility] Other 06-02-2023 13:15-0500 Body mass index (BMI) [Ratio] 23.27 kg/m2 Sharonda Calix Other [facility] Other 06-02-2023 13:15-0500 Body temperature 96.9 [degF] Sharonda Calix Other [facility] Other 06-02-2023 13:15-0500 Body weight 59.6 kg Sharonda Calix Other [facility] Other 06-02-2023 13:15-0500 Diastolic blood pressure 79 mm[Hg] Sharonda Calix Other [facility] Other 06-02-2023 13:15-0500 SaO2% (BldA) [Mass fraction] 95 % Sharonda Calix Other [facility] Other 06-02-2023 13:15-0500 Systolic blood pressure 120 mm[Hg] Sharonda Calix Other [facility] Other 09-17-2022 11:00-0400 Body height 167.64 cm Enrrique Grant Other [facility] Other 09-17-2022 11:00-0400 Body mass index (BMI) [Ratio] 20.98 kg/m2 Enrrique Grant Other [facility] Other 09-17-2022 11:00-0400 Body weight 58.97 kg Enrrique Grant Other [facility] Other 09-17-2022 11:00-0400 Diastolic blood pressure 97 mm[Hg] Enrrique Grant Other [facility] [employer] Other 09-17-2022 11:00-0400 Systolic blood pressure 139 mm[Hg] Enrrique Grant Other [facility] [employer] Other 07-29-2022 12:11-0500 Diastolic blood pressure 84 mm[Hg] MD Jameel Manzanares Work Phone: [facility] 07-29-2022 12:11-0500 Heart rate 71 /min MD Jameel Manzanares Work Phone: [facility] 07-29-2022 12:11-0500 Respiratory rate 16 /min MD Jameel Manzanares Work Phone: [facility] 07-29-2022 12:11-0500 SaO2% (BldA) [Mass fraction] 96 % MD Jameel Manzanares Work Phone: [facility] 07-29-2022 12:11-0500 Systolic blood pressure 120 mm[Hg] MD Jameel Manzanares Work Phone: [facility] 07-29-2022 09:45-0500 Body height 160.02 cm MD Jameel Manzanares Work Phone: [facility] 07-29-2022 09:45-0500 Body temperature 98.4 [degF] MD Jameel Manzanares Work Phone: [facility] 07-29-2022 09:45-0500 Body weight 58.96 kg MD Jameel Manzanares Work Phone: [facility] Encounters Encounter Date Encounter Type Care Provider Facility Start: 03-07-2024 ambulatory [facility] Start: 02-28-2024 End: 02-28-2024 ambulatory [facility] Start: 12-22-2023 ambulatory KARLOS BROWN [facility] Start: 12-22-2023 ambulatory KARLOS BROWN [facility] Start: 12-01-2023 End: 12-01-2023 ambulatory RUBI YOO [facility] Start: 11-15-2023 ambulatory KIERAN PETERSEN [facility] Start: 09-05-2023 End: 09-05-2023 ambulatory SHAAN H TIMMIS Not Available Start: 08-26-2023 End: 08-26-2023 ambulatory Sharonda Calix Other [facility] Other Start: 08-26-2023 Telephone encounter Sharonda Calix [facility] Start: 08-18-2023 End: 08-19-2023 ambulatory Shaan H Timmis [place] Start: 07-06-2023 End: 07-06-2023 ambulatory SHAAN H TIMMIS Not Available Start: 07-06-2023 End: 08-11-2023 Pre-admission assessment Shaan H Timmis [facility] Start: 06-21-2023 End: 06-21-2023 ambulatory Sharonda Calix Other [facility] Other Start: 06-21-2023 Telephone encounter Sharonda Calix [facility] Start: 06-20-2023 Telephone encounter Sharonda Calix [facility] Start: 06-20-2023 End: 06-20-2023 ambulatory JOSE VILLALOBOS [facility] [employer] Other Start: 06-17-2023 End: 06-17-2023 ambulatory Sharonda Calix Other [facility] Other Start: 06-17-2023 Telephone encounter Sharonda Calix [facility] Start: 06-06-2023 End: 06-06-2023 ambulatory Sharonda Calix Other [facility] Other Start: 06-06-2023 Telephone encounter Sharonda Calix [facility] Start: 06-02-2023 End: 06-02-2023 ambulatory Sharonda Calix Other [facility] Other Start: 06-02-2023 Office outpatient visit 25 minutes Sharonda Calix [facility] Start: 05-19-2023 Nursing evaluation o f patient and report Sharonda Calix [facility] Start: 05-19-2023 End: 05-19-2023 ambulatory KIERAN PETERSEN [facility] [employer] Other Start: 04-26-2023 End: 04-26-2023 ambulatory KIERAN GUILLE [facility] Start: 10-21-2022 End: 10-22-2022 ambulatory AAKASH CALIX . Facility:[facility] Start: 09-17-2022 End: 09-17-2022 ambulatory Enrrique Grant Other [facility] Other Start: 09-17-2022 Office outpatient visit 15 minutes Enrrique Grant [facility] Gastroenter[facility] Start: 08-04-2022 End: 08-05-[address] ÁNGEL PUGH Facility:[facility] Start: 07-29-2022 End: 07-29-2022 ambulatory Enrrique Grant Facility:[facility] Start: 07-29-2022 End: 07-29-2022 Admission to same day surgery center MD Jameel Manzanares Work Phone: [facility] Work Phone: Start: 07-29-2022 End: 07-29-2022 ambulatory MD Jameel Manzanares Work Phone: [facility] Work Phone: Start: 07-13-2022 End: 07-14-2022 ambulatory KIERAN PETERSEN Facility:[facility] Start: 06-23-2022 End: 06-24-[address] MERCY MORGAN . Facility:[facility] Start: 06-16-2022 ambulatory Jyoti García MD Work Phone: [facility] [place] Start: 06-11-2022 End: 06-11-[address] MERCY [...] laboratory examination DR ANTONELLA WAYNE . [facility] Start: 10-27-2021 End: 10-27-[address] ANTONELLA WAYNE . Facility:[facility] Start: 10-26-2021 End: 10-27-2021 Encounter for preprocedural laboratory examination DR ANTONELLA WAYNE . Facility:[facility] Start: 10-26-2021 End: 10-27-[address] ANTONELLA WAYNE . Facility:[facility] Start: 04-30-2020 Patient encounter procedure Krzysztof Larkin [facility] Work Phone: Start: 02-14-2020 End: 02-14-2020 Subsequent hospital visit by physician [employer] [facility] (I-Stat/1.5t) Radiology Comment on above: Chronic mixed headac he syndrome [G44.89] Start: 10-31-2018 End: 10-31-2018 Emergency department patient visit [facility] Start: 08-25-2018 Patient encounter procedure Krzysztof aLrkin [facility] Work Phone: Start: 11-02-2017 Patient encounter procedure Krzysztof Larkin [facility] Work Phone: Start: 10-21-2017 Patient encounter procedure Krzysztof Larkin [facility]ology-[facility] Work Phone: Procedures Date Procedure Procedure Detail Performing Clinician Start: 07-29-2022 Colonoscopy MD Jameel og Work Phone: Start: 08-13-2020 Adult depression scr eening assessment Jojo Lupillo OD Work Phone: Start: 02-14-2020 Mri brain brain stem w/o w/contrast material Jyoti García MD Work Phone: Start: 09-12-2019 Lipid 1996 panel - S rema or Plasma Mri (I-Stat/1.5t) Start: 09-11-2018 Mammography Jojo Ford nathan OD Work Phone: Start: 07-04-2017 Colonoscopy Jojo Liliana evans OD Work Phone: Screening for malign ant neoplasm of colon Enrrique Arroy[employer]ack Other Plan of Treatment Date Care Activity Detail Author Start: 09-11-2024 Lipid 1996 panel - Serum or Plasma Lipid Screening [facility] [place] Start: 09-11-2024 LIPID SCREEN LIPID SCREEN [facility] [place] Start: 03-04-2023 Influenza vaccination Influenza Vacc ine (#1) [facility] [place] Start: 09-11-2022 DIABETES SCREEN [facility]CREEN [facility] Start: 09-11-2022 Diabetes Screening Diabetes Screenin g [facility] [place] Start: 07-29-2022 [facility] Start: 07-04-2022 Advance Directive Discussion Advance Directive Discussion [facility] [place] Start: 07-04-2022 Colonoscopy COLONOSCOPY [facility] [place] Start: 07-04-2022 COLORECTAL CANCER SCREENING COLORECTAL CANCER SCREENING [facility] [place] Start: 07-04-2022 [facility] [place] Start: 03-04-2022 Influenza vaccination INFLUENZA (#1) [facility] [place] Start: 08-13-2021 Adult depression screening assessment DEPRESSION SCREENING [facility] [place] Start: 07-04-2021 ADVANCE DIRECTIVE DISCUSSION ADVANCE DIRECTIVE DISCUSSION [facility] [place] Start: 07-04-2021 DEPRESSION ASSESSMENT DEPRESSION ASS ESSMENT [facility] [place] Start: 03-30-2021 Urine microalbumin profile [facility] [place] Start: 09-12-2019 Mammography [facility] [place] Start: 2016 RSV Vaccine (1 - 1-d ose 60+ series) RSV Vaccine (1 - 1-dose 60+ series) [facility] [place] Start: 05-23-2014 Pneumococcal Vaccine : 65+ (2 - PCV) Pneumococcal Vaccine: 65+ (2 - PCV) [facility] [place] Start: 05-23-2014 PNEUMOCOCCAL: 65+ (2 - PCV) PNEUMOCOCCAL: 65+ (2 - PCV) [facility] [place] Start: 11-30-2013 FECAL OCCULT BLOOD FECAL OCCULT BLOO D [facility] [place] Start: 2006 SHINGRIX VACCINE (1 of 2) SHINGRIX VACCINE (1 of 2) [facility] [place] Start: 2001 COLOGUARD (FIT-DNA) COLOGUARD (FIT-D NA) [facility] [place] Start: [address] COLONOGRAPHY [facility] Start: 2001 SIGMOIDOSCOPY SIGMOIDOSCOPY [facility] Start: 1956 COVID-19 VACCINE (#1) COVID-19 VACCI NE (#1) [facility] [place] End: 07-16-2023 DOLORES SCREENING DOLORES SCREENING Radiology Routine Encounter for screening mammogram for breast cancer 1 Occurrences starting 06/16/2022 until 07/16/2023 [facility] Work Phone: Comment on above: 1 Occurrences starti ng 06/16/2022 until 07/16/2023 Patient Education Hemorrhoids Co desean Polyps Diverticulosis (DC) [facility] Work Phone: Immunizations Immunization Date Immunization Notes Care Provider Fa sapphire 05-19-2023 influenza, high dose seasonal, preservative-free Sharonda Calix Other [facility] Other 06-19-2020 influenza, injectabl e, quadrivalent, contains preservative Jojo Wesley OD Work Phone: [facility] [place] 06-19-2020 influenza virus vacc ine, unspecified formulation Mri (I-Stat/1.5t) [facility] [place] 09-11-2019 influenza, injectabl e, quadrivalent, contains preservative Jojo Wesley OD Work Phone: [facility] [place] 09-11-2019 zoster vaccine, recombinant, adjuvanted, (SHINGRIX, PF,) 50 mcg/0.5 mL injection Mri (I-Stat/1.5t) [facility] [place] Work Phone: Comment on above: Inject 0.5 mL intram uscularly now and repeat 2nd dose in 2-6 months 03-28-2017 influenza, injectabl e, quadrivalent, contains preservative Jojo Wesley OD Work Phone: [facility] [place] 08-12-2016 influenza, injectabl e, quadrivalent, preservative free Jojo Wesley OD Work Phone: [facility] [place] Work Phone: 04-14-2015 influenza, injectabl e, quadrivalent, preservative free Jojo Wesley OD Work Phone: [facility] [place] Work Phone: 05-23-2013 influenza virus vacc ine, unspecified formulation Jojo Wesley OD Work Phone: [facility] [place] 05-23-2013 pneumococcal polysaccharide vaccine, 23 valent Jojo Lupillo OD Work Phone: [facility] [place] 04-13-2012 influenza virus vacc ine, unspecified formulation Jojo Wesley OD Work Phone: [facility] [place] 03-30-2011 tetanus toxoid, redu rukhsana diphtheria toxoid, and acellular pertussis vaccine, adsorbed Jojo Lupillo OD Work Phone: [facility] [place] Payers Date Payer Category Payer Self-pay 2019 Unknown [employer] PPO OOS [id number] 2019-Present [phone] [address] [place] [address] PPO [id number] 2019 Unknown [employer]M [employer] CARD PPO OOS [id number] 2019-Present [phone] [address] [place] [address] PPO [id number] 1959 Private Health Insurance [facility] [id number] 1955 Unknown [id number] 2.16.840.1.974644.3.579.2.5 1956 Unknown [id number] 2.16.840.1.753224.3.579.2.5 93 1956 Unknown [id number] 2.16.840.1.803481.3.579.2.5 1956 Unknown [id number] 2.16.840.1.492581.3.579.2.5 93 1956 Unknown [id number] 2.16.840.1.398387.3.579.2.5 93 1956 Unknown [id number] 2.16.840.1.250423.3.579.2.5 93 1956 Unknown [id number] 2.16.840.1.077077.3.579.2.5 93 1956 Unknown [id number] 2.16.840.1.166701.3.579.2.5 93 1956 Unknown [id number] 2.16.840.1.984792.3.579.2.5 1956 Unknown [id number] 2.16.840.1.760395.3.579.2.5 93 1956 Unknown [id number] 2.16.840.1.352364.3.579.2.5 1956 Unknown [id number] 2.16.840.1.414196.3.579.2.5 93 1956 Unknown [id number] 2.16.840.1.164799.3.579.2.5 1956 Unknown [id number] 2.16.840.1.093608.3.579.2.1 259 1956 Unknown [id number] 2.16.840.1.610457.3.579.2.7 27 1956 Unknown [id number] 2.16.840.1.344555.3.579.2.1 259 Unknown [id number] 2.16.840.1.773667.3.579.2.5 31 Social History Date Type Detail Facility Start: 07-04-1985 Tobacco smoking stat [email or web address]IS Smokes tobacco daily [facility] [place] Start: 07-04-1985 History of tobacco use Cigarette Smo ker [facility] [place] Start: 01-29-2020 End: 10-20-2020 Alcohol intake Current drinker of alcohol (finding) [facility] [place] Start: 01-18-2020 End: 02-28-2020 History SDOH Alcohol Frequency 2 [facility] [place] Start: 01-18-2020 End: 02-28-2020 History SDOH Alcohol Std Drinks 1 [facility] [place] Start: 07-25-2014 History SDOH Alcohol Comment 1 drink per year [facility] [place] Start: 09-11-2019 End: 01-18-2020 History SDOH Social Connections Phone 3 [facility] [place] Start: 01-18-2020 History SDOH Physica l Activity DPW 5 [facility] [place] Start: 09-11-2019 Education 15 [facility] [place] Start: 09-11-2019 Tobacco Comment current 0.5-1ppd [facility] Start: 1955 Sex Assigned At Female [facility] Start: 09-11-2019 End: 01-18-2020 Cigarettes smoked current (pack per day) - Reported 0.8 [facility] [place] Start: 09-11-2019 Tobacco use and exposure Smoke less tobacco non-user [facility] [place] Work Phone: Start: 07-29-2022 Tobacco smoking stat [email or web address]IS Smoker (finding) [facility] Start: 09-11-2019 End: 01-18-2020 Sex Assigned At [facility] [place] Frequency of Communication with Friends and Family Not on file [facility] [place] Do you belong to any clubs or organizations such as latter-day groups, unions, fraternal or athletic groups, or school groups? Yes [facility] [place] How often to you hav e a drink containing alcohol? Monthly or less [facility] [place] How many standard dr inks containing alcohol do you have on a typical day? 1 or 2 [facility] [place] How often do you hav e 6 or more drinks on 1 occasion? Never [facility] [place] Do you feel stress - tense, restless, nervous, or anxious, or unable to sleep at night because your mind is troubled all the time - these days [OSQ] Only a little [facility] [place] (I/We) worried alan er (my/our) food would run out before (I/we) got money to buy more. Never true [facility] [place] In the past 12 month s, was there a time when you were not able to pay the mortgage or rent on time? No [facility] [place] Start: 11-17-2018 Gender identity Identifies as female gender (finding) [facility] [place] Start: 11-17-2018 Sexual orientation Choose not to disclose [facility] [place] Start: 01-15-2020 End: 02-14-2020 Exposure to SARS-CoV-2 (event) Not sure [facility] [place] Tobacco smoking status No Smokin g Status Entered [facility] NEGATED: Highlighted row - Current every day smoker [facility] Work Phone: Goals Date Patient Goal Desired Activity /State Functional Status Date Assessment Result Facility NEGATED: Highlighted row Functional performance Functional status health issues are not documented Disease [facility] Work Phone: Mental Status Date Assessment Result Facility NEGATED: Highlighted row Cognitive function [Interpretation] Cognitive status health issues are not documented Disease [facility] Work Phone: Clinical Notes 06-05-2012 to 02-28-2024 Note Date & Type Note Facility 02-28-2024 Note [place] [facility] Consul t Note Reason for visit: Palpitations, AT 02/28/24 Pt is here for a three month follow up. Pt has hyper tension, SVT. Pt denies sob, chest pain, or palpatations. Her blood pressure readings in the 100 210 range and she feels slightly tired. Loop data was reviewed which reveals up episodes of noise as well as under sensing. No SVT noted 06/20/23: She has been doing well She [...] 04/10/2012 shows sinus rhythm with normal intervals -------- ---- 06/29/22 HPI: Marly Jaffe is a [...] Determinants of Health Tobacco Use: High Risk (06/20/2023) Patient History Smoking Tobacco Use: Every Day Smokeless Tobacco Use: Never Passive Exposure: Current Alcohol Use: Not on file Financial Resource Strain: Not on file Food Insecurity: Not on file Transportation Needs: Not on file Physical Activity: Not on file Stress: Not on file Social Connections: Not on file Intimate Partner Violence: Unknown (08/25/2023) [place] Safety & Environment Fear of Current or Ex-Partner: Not on file Emotionally Abused: Not on file Physically Abused: Not on file Sexually Abused: Not on file Physically or Sexually Abused: Not on file Depression: Not on file Housing Stability: Not on file Utilities: Not on file Allergies: Allergies Allergen Reactions [...] at noon, and at bedtime. amLODIPine (Norvasc) 2.5 mg tablet Take 1 tablet (2.5 mg) by mouth in the morning. 30 tablet 11 aspirin 81 mg EC tablet Take 81 mg by mouth in the morning. baclofen (Lioresal) 10 mg tablet Take 10 mg by mouth two times daily. cholecalciferol, vitamin D3, 50 mcg (2,000 unit) capsule Take 2,000 Units by mouth in the morning. fluticasone (Flonase) 50 mcg/actuation nasal spray Administer 2 sprays into each nostril in the morning. meloxicam (Mobic) 15 mg tablet TAKE 1 TABLET EACH MORNING methocarbamol (Robaxin) 500 mg tablet Take 500 mg by mouth. metoprolol succinate XL (Toprol-XL) 25 mg 24 hr tablet Take 1 tablet (25 mg) by mouth in the morning. Do not crush or chew. 90 tablet 3 mont[place] (more content not included)... [facility] 12-01-2023 Note [place] [facility] - [facility] Subjective Marly Jaffe is a 68 [...] breathing, no ral (more content not included)... [facility] 12-01-2023 Note Patient here for 6 [...] All other systems reviewed and are negative. [facility] 06-21-2023 Evaluation note Encounter Date Diagnosis Assessment Notes Jun, Post-nasal drainage (ICD-10 - R09.82) [facility] Other 12-18-2023 NoteUT Cardiology Consult Note Reason for visit: [...] prior to visit. ROS: (more content not included)...[facility]12-18-2023 NotePatient here for 1 mo follow [...] cough. All other systems reviewed and are negative.[facility] 06-02-2023 Evaluation note* Encounter Date Diagnosis [...] Imaging and consider ENT referral if needed. [facility] Other [id number] NotePatient Outreach (INTMMN) LDMARLY ([id number]) 1955 F Date Time Provider Department 05/25/23 JYOTI GARCÍA During your visit today, we recorded the [...] for screening mammogram for breast cancer [Z12.31] Order(s):[facility] SCREENING [[id number]] Order #: [id number] FUTURE Prescriptions as of 05/30/2023 - travoprost [...] at bedtime as needed. 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.2] Dyspareunia [CHO2791] 11/04/2017 Tobacco user [Z72.0] 05/03/2013 Symptomatic menopausal or female climacteric st* Screening breast examination [Z12.39] 03/30/2011 08/02/2011 Constipation [K59.00] Abnormal mammogram [R92.8] 08/02/2011 11/04/2017 Elevated BP [QDP7418] 08/02/2011 Chest pain [R07.9] 09/17/2011 05/03/2013 Tobacco dependency [F17.200] 09/17/2011 Family history of early CAD [Z82.49] 09/17/2011 Syncope [R55] 09/17/2011 Postmenopausal HRT (hormone replacement therapy*06/05/2012 Screening breast examination [Z12.39] 06/05/2012 05/03/2013 Elevated IOP [H40.059] 05/03/2013 Multiple thyroid nodules [E04.2] 05/03/2013 Family history of colon cancer [Z80.0] 03/28/2017 Smoker [F17.200] 05/03/2017 Bilateral wrist pain [M25.531, M25.532] 07/14/2017 Encounter Status:Closed by iPositioning, PRODUSER on 05/30/23[facility] 05-19-20[facility] Evaluation note* Encounter Date Diagnosis Assessment Notes Treatment Notes Treatment Clinical Notes May, Allergic rhinitis, unspecified seasonality, unspecified trigger (ICD-10 - J30.9) [facility] Other [id number] NoteLOOP IMPLANT PROCEDURE NOTE DATE OF PROCEDURE: 05/19/23 PERFORMING PHYSICIAN: Dr. Kieran Petersen RED HAT LINUX ENGINEER: LIZ INDICATIONS FOR PROCEDURE: 1. SVT/AF surveillance [...] the sternum on the left using the Chibwe tool. The loop recorder was then injected [...] wet the incision. Kieran Petersen MD Cardiac Electrophysiology.[facility]10-24-2023 NoteUT Cardiology Consult Note Reason for [...] affect Orientation: oriented to (more content not included)...[facility]04-20-2023 NoteCONSULTATION CONSULTATION DATE: 10/21/2022 TO: Jameel [...] our patients to inform us about any zico-bep-vdwymrm medications or herbal remedies/nutritional supplements/alternative remedies. 2. [...] treatment options with their primary care provider.[facility] [id number] Evaluation note * Encounter Date Diagnosis Assessment Notes Treatment Notes Treatment Clinical Notes Sep, Constipation (ICD-10 - K59.00) Sep, Diverticulosis (ICD-10 - K57.90) Sep, Hemorrhoids (ICD-10 - K64.9) Sep, Other Repeat colonoscopy in 5 yrs [facility] Other 01-26-2023 Procedure [facility]12-14-2022 NotePatient Outreach (INTMMN) MARLY JAFFE ([id number]) 1955 F Date Time Provider Department 06/16/22 [...] 09/07/2005 Date Reviewed: 10/20/2020 Reviewed by: Jojo (Od) Foster - Fully Assessed Visit Diagnosis:Encounter for screening mammogram for breast cancer [Z12.31] Order(s):[facility] SCREENING [[id number]] Order #: [id number] FUTURE Prescriptions as of 06/21/2022 - omeprazole [...] at bedtime as needed. - MV with Goy-Bkltvcvc-Rymoba (CENTRUM SILVER) 0.4-300-250 mg-mcg-mcg tab Take 1 [...] (DM) [Z83.3] Postmenopausal atrophic vaginitis [N95.2] Dyspareunia [ICN3089] 11/04/2017 Tobacco user [Z72.0] 05/03/2013 Symptomatic menopausal or female climacteric st* Screening breast examination [Z12.39] 03/30/2011 08/02/2011 Constipation [K59.00] Abnormal mammogram [R92.8] 08/02/2011 11/04/2017 Elevated BP [YYM5484] 08/02/2011 Chest pain [R07.9] 09/17/2011 05/03/2013 Tobacco dependency [F17.200] 09/17/2011 Family history of early CAD [Z82.49] 09/17/2011 Syncope [R55] 09/17/2011 Postmenopausal HRT (hormone replacement therapy*06/05/2012 Screening breast examination [Z12.39] 06/05/2012 05/03/2013 Elevated IOP [H40.059] 05/03/2013 Multiple thyroid nodules [E04.2] 05/03/2013 Family history of colon cancer [Z80.0] 03/28/2017 Smoker [F17.200] 05/03/2017 Bilateral wrist pain [M25.531, M25.532] 07/14/2017 Encounter Status:Closed by FOUZIA COLLADO on 06/21/22[facility] 05-07-2022 Miscellaneous Notes* Telephone Encounter - Judy Patel MA - 05/07/2022 7:21 AM EDT Pharmacy escribed requesting the following refill. Requested Prescriptions Pending Prescriptions Disp Refills omeprazole (PRILOSEC) 20 mg capsule [Pharmacy Med Name: OMEPRAZOLE DR 20 MG CAPSULE] 90 capsule 1 Sig: TAKE 1 CAPSULE BY MOUTH EVERY DAY Patient last appointment: 08/13/2020 Patient Phone numbers: [phone] (home) Request is for script(s) to be escript to pharmacy. Judy Patel MA documented in [facility] encounter[facility] [place] NoteCONSULTATION CONSULTATION DATE: 02/10/2022 This is a [...] changes in the weather. 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 She denies [...] time and the patient is in agreement.[facility] [id number] NoteCONSULTATION CONSULTATION DATE: 11/26/2021 HISTORY OF PRESENT [...] Patient agrees with the plan of care. [facility] Signed and Approved by: SWEETIE ROBERTS . 12/03/2021 16:05:00[facility]08-13-2020 History of Present illness Narrative* Gail Ferrari)STEVE - 02/14/2020 10:00 AM EDT Radiology Service [...] 2020 TIME: 9:41 AM documented in this encounterKing[facility] [place] History of Past illness Narrative* Problem Noted Date Resolved Date Screening breast examination 06/05/2012 Chest pain 09/17/2011 05/03/2013 Abnormal mammogram 08/02/2011 11/04/2017 Screening breast examination 03/30/2011 Colon cancer screening 03/03/2009 2 Degeneration of lumbar or lumbosacral interverte bral disc 01/24/2009 10/22/2013 Dyspareunia 11/04/2017 Tobacco user 05/03/2013 documented as of this encounter (statuses as of 02/01/2022) [facility] [place]12-03-2012 History of Past illness Narrative* Problem Noted Date Resolved Date Screening breast examination 06/05/2012 Chest pain 09/17/2011 05/03/2013 Abnormal mammogram 08/02/2011 11/04/2017 Screening breast examination 03/30/2011 Colon cancer screening 03/03/2009 2 Degeneration of lumbar or lumbosacral interverte bral disc 01/24/2009 10/22/2013 Dyspareunia 11/04/2017 Tobacco user 05/03/2013 documented as of this encounter (statuses as of 05/07/2022) [facility] [place]12-03-2012 History of Past illness Narrative* Problem Noted Date Resolved Date Screening breast examination 06/05/2012 Chest pain 09/17/2011 05/03/2013 Abnormal mammogram 08/02/2011 11/04/2017 Screening breast examination 03/30/2011 Colon cancer screening 03/03/2009 2 Degeneration of lumbar or lumbosacral interverte bral disc 01/24/2009 10/22/2013 Dyspareunia 11/04/2017 Tobacco user 05/03/2013 documented as of this encounter (statuses as of 06/21/2022) [facility] [place]12-03-2012 History of Past illness Narrative* Problem Noted Date Diagnosed Date Resolved Date Screening breast examination 06/05/2012 05/03/2013 Chest pain 09/17/2011 05/03/2013 Abnormal mammogram 08/02/2011 8 Screening breast examination 03/30/2011 08/02/2011 Colon cancer screening 03/03/200908/02 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 01/24/2009 10/22/2013 Dyspareunia 11/04/2017 Tobacco user 05/03/2013 documented as of this encounter (statuses as of 05/08/2023) [facility] [place] No data available for this section [facility] Diagnosis Encounter for screening mammogram for breast cancer documented in this encounter [facility] [place]* Diagnosis Onset Date Resolution Status Encounter for screening colonoscopy [facility] Work Phone: Evaluation note* Diagnosis Chronic mixed headache syndrome Other headache syndromes documented in this encounter [facility] [place] noteNo [facility] [employer] Other Hospital Discharge instructions Additional Instructions DISCHARGE [...] kiwi fruit Repeat colonoscopy in 5 years [facility] 1 p.o. every morning -Notify the doctor if you have any problems. -Office number [phone] Work Phone: Hospital Discharge instructions No data available for this section [facility]* Name Dates Details Instructions not documented [facility] Work Phone: Progress note No data available for this section [facility]Reason for [facility] (narrative)* Diagnostic Procedure Only (Routine) - Pending Review Specialty Diagnoses / Procedures Referred By Zaid gutiérrez Referred To Contact [facility] Diagnoses Encounter for screening mammogram for breast cancer Procedures DOLORES SCREENING SCREENING MAMMOGRAPHY BI 2-[place] [address] [place] [address] [facility] [address] [place] [address] Referral ID Status Reason Start Date Expiration Date Visits Requested Visits Authorized [id number] Pending Review Auto-Generat ed Referral 2 07/16/2023 1 1 [facility] [place] for [facility] (narrative)* Diagnostic Procedure Only (Routine) - Closed Specialty Diagnoses / Procedures Referred By Contac t Referred To Contact MR IMAGING Diagnoses Chronic mixed headache syndrome G44.89 (ICD-10-CM) - Chronic mixed headache syndrome Procedures MRI BRAIN WO/W IVCON MRI BRAIN COMBO MRI BRAIN WO/[place] Jyoti García [place] [address] [place] [address] [place] [address] Referral ID Status Reason Start Date Expiration Date V isits Requested Visits Authorized [id number] Closed Auto-Generate d Referral 02/11/2020 07/03/2020 1 1 [facility] [place] Summary Purpose Family History No Family History Records Found Relationship Condition Age at Onset Recorded Date/T bishop brother Malignant neoplasm of colon Unknown sister Malignant neoplasm of bone Unknown sister Malignant neoplasm of pancreas Unknown Advance Directives No Advanced Directives Records FoundDocuments on File Type Date Recorded Patient Bench Chemist Expl anation Advance Directive(s) 10/31/2018 9:16 AM Advance Directive(s) 12/04/2012 9:42 PM Advance Directive(s) 11/29/2012 9:09 PM Documents on File Type Date Recorded Patient Bench Chemist Expl anation Advance Directive(s) 12/04/2012 9:42 PM Advance Directive(s) 11/29/2012 9:09 PM Documents on File Type Date Recorded Patient Bench Chemist Expl anation Advance Directive(s) 12/04/2012 9:42 PM [...] Diagnosis 1 Post-nasal drainage (R09.82) Referral Organization [facility] kaylah Referring Provider First Name Sharonda Referring Provider Last Name Michele Referring Provider Specialty [facility] Referred Organization [facility] Referred Provider Shaan Villalta Referred Address ,[place], [place],[address] Referred Provider Specialty Ear, Nose an d Throat Referral Priority Routine General Notes Iam Inessa 02:51:01 PM >received today, notes locked, ins attached, referral faxed Additional Source Comments INFORMATION SOURCE (unrecogn ized section and content) DATE CREATED AUTHOR 11/12/2018 [facility] DATE CREATED AUTHOR AUTHOR'S ORGANIZ ATION 06/18/2019 [facility] DATE CREATED AUTHOR AUTHOR'S ORGANIZ ATION 05/01/2020 [employer] DATE CREATED AUTHOR AUTHOR'S ORGANIZ ATION 08/01/2022 [facility] DATE CREATED AUTHOR AUTHOR'S ORGANIZ ATION 10/26/2022 [facility] DATE CREATED AUTHOR AUTHOR'S ORGANIZ ATION 05/30/2023 [facility] DATE CREATED AUTHOR AUTHOR'S ORGANIZ ATION 07/07/2023 [facility] EPIC DATE CREATED AUTHOR AUTHOR'S ORGANIZ ATION 08/20/2023 [facility] DATE CREATED AUTHOR AUTHOR'S ORGANIZ ATION 09/06/2023 [facility] EPIC DATE CREATED AUTHOR AUTHOR'S ORGANIZ ATION 03/08/2024 [facility] Source Comments (unrecognize d section and content) In the event this informatio n is protected by the Federal Confidentiality of Alcohol and Drug Abuse Patient Records regulations: The Federal rules restrict any use of the information to criminally investigate or prosecute any alcohol or drug abuse patient.[facility] [place] the event this information is protected by the Federal Confidentiality of Alcohol and Drug Abuse Patient Records regulations: The Federal rules restrict any use of the information to criminally investigate or prosecute any alcohol or drug abuse patient.[facility] [place] the event this information is protected by the Federal Confidentiality of Alcohol and Drug Abuse Patient Records regulations: The Federal rules restrict any use of the information to criminally investigate or prosecute any alcohol or drug abuse patient.[facility] [place] the event this information is protected by the Federal Confidentiality of Alcohol and Drug Abuse Patient Records regulations: The Federal rules restrict any use of the information to criminally investigate or prosecute any alcohol or drug abuse patient.[facility] [place] Reason for Visit (unrecogniz ed section and content) Reason Comments Refill Request Reason Comments Radiology MRI Specialty Diagnoses / Procedures Referred By Contac t Referred To Contact MR IMAGING Diagnoses Chronic mixed headache syndrome G44.89 (ICD-10-CM) - Chronic mixed headache syndrome Procedures MRI BRAIN WO/W IVCON MRI BRAIN COMBO MRI BRAIN WO/[place] Jyoti García [place] [address] [place] [address] [place] [address] Referral ID Status Reason Start Date Expiration Date V isits Requested Visits Authorized [id number] Closed Auto-Generate d Referral 02/11/2020 07/03/2020 1 1 Care Teams (unrecognized sec tion and content) Car Ferry Master Relationship Specialty Start Date [place] Date Jyoti García [place] [address] [place] [address] PCP - General Internal Medicine 09/11/19 Car Ferry Master Relationship Specialty Start Date [place] Jyoti García [place] [address] [place] [address] PCP - General Internal Medicine 09/11/19 Car Ferry Master Relationship Specialty Start Date [place] Date Jyoti García [place] [address] [place], [place] [id number] PCP - General Internal Medicine 09/11/19 Team Status: Inactive Member Role Status Dates Enrrique Grant MD Attending Provider Active Jameel Manzanares MD Primary Care Provider Active Team Status: Active Member Role Status Dates Jameel Manzanares MD Primary Care Provider Active Car Ferry Master Relationship Specialty Start Date [place] Jyoti García [place] [address] [place] [address] PCP - General Internal Medicine 09/11/19 FOR [...] BE BASED ON THE PRIMARY CLINICAL RECORDS. [employer] [facility] [employer] [facility]. provides no warranty or guarantee of the accuracy or completeness of information in this document.
[2024-03-20 08:32] VITALS: BP 135/85; PULSE 72; TEMP 36; O2SAT 97
[2024-03-20 08:57] VITALS: BP 152/77; PULSE 68; O2SAT 97
[2024-03-20 08:58] VITALS: BP 132/77; PULSE 62; O2SAT 94
[2024-03-20] MEDS: BUPIVACAINE HCL 0.25% PF 25 MG/10 ML VIAL 4 ML INJ (09:03)
--- NOTE | 2024-03-20 09:31 | W.PM.PROCNOT ---
Date of procedure: 03/20/24 Pre-op diagnosis: Lumbar spondylosis Post-op diagnosis: same as pre-op Procedure: Bilateral Lumbar 4/5, 5/sacral 1 medial branch block Preop diagnosis includes pain secondary to spondylosis, Postop diagnosis same Under fluoroscopic guidance Solution injected: 2milliliters Marcaine 0.25% Anesthesia :none Immediate complications none Time out process compliant After informed consent obtained from the patient placed in the Pr[employer] proposition . area was prepped and draped in a sterile fashion using betadine .25 gauge spinal needle inserted over each of the above mentioned target areas . Antelope were directed towards the target under fluoroscopic guidance . after encountering each of the targets , no indication of intravascular intraneuronal or intrathecal needle tip placement. Then 0 .5 to 1 Milliliter was injected at each level. Antelope removed postoperatively. patient transferred to recovery in stable condition to be discharged home after meeting criteria Anesthesia: Local Surgeon: Jarvis Camp Condition: stable
== END 2024-03-20 09:07 | disposition home or self-care (01) ==
LOC: SURGOUT 07:56
PROVIDERS: PCP Family Medicine; Visit Provider Anesthesiology Pain Medicine
DX: M47.816 Spondylosis without myelopathy or radiculopathy, lumbar region (principal)
CPT/HCPCS: 64493; 64494; J0665

== ENCOUNTER 2024-03-28 13:37 | Outpatient (OUT) | payer MEDICARE, SELFPAY ==
--- OUTSIDE RECORDS SUMMARY | 2024-03-28 13:43 | XMS_ITS | CCD ---
Author Organization [facility] Care Team Providers Care 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 Name Role Phone ERWIN DYE Attending Unavailable Abbass, Rami Unavailable Unavailable Unknown, Referring Provider Unavailable Unav ailable Abbass, Rami Unavailable Unavailable Chaya PAUL, Rami Unavailable Unavailable Unknown, Referring Provider Unavailable Unav ailable Raquel PAUL, Jyoti Lugo Primary Care Provider [phone] Raquel PAUL, Jyoti Lugo Primary Care Provider [phone] Raquel PAUL, Jyoti Lugo Primary Care Provider [phone] MD Enrrique Grant Attending Provider MD Jameel Manzanares Primary Care Provider Enrrique Grant Attending Unavailabl Enrrique Brambila Admitting Unavailabl e Bryson, Jameel Primary Care Unavailable Enrrique Grant Unavailable [phone] ROSANA ., DR ANTONELLA Lugo Consulting Unavailable [...] NADERER, DR JAMEEL Ellis Primary Care Unavailable AWYNE ., DR ANTONELLA Lugo Attending Unavailable WAYNE [...] Facility Prochlorperazine (1 source) Prochlorperazine Drug Allergy [facility] [employer] Work Phone: Sulfonamides (antibiotic) (1 source) Sulfonamides (Antibiotic) Drug Allergy [facility] [employer] Work Phone: (5 sources) Hydroxychloroquine; 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: [HYDROXYCHLOROQUINE SULFATE] Drug Allergy 006 Rash [facility] Repository (8 sources) Sulfonamides (Antibiotic); 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: [SULFA (SULFONAMIDE ANTIBIOTICS)] Propensity to adverse reactions to drug (disorder) Unknown Reaction [facility] Repository (6 sources) AMOXICILLIN-POT CLAVULANATE; 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: [AMOXICILLIN-POT CLAVULANATE] Propensity to adverse reactions to drug (disorder) 019 Rash [facility] Repository (5 sources) PROCHLORPERAZINE EDISYLATE; 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: [PROCHLORPERAZINE EDISYLATE] Propensity to adverse reactions to drug (disorder) 006 [facility] Repository (4 sources) Sulfonamides (Antibiotic) drug allergy [facility] [employer] Work Phone: (1 source) drug allergy [facility] [employer] Work Phone: (13 sources) Prochlorperazine; 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: [Compazine] Drug Allergy Unknown [facility] Repository (6 sources) Prochlorperazine; 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: [PROCHLORPERAZINE] Drug Allergy 006 Other: See Comments [facility] (5 sources) traMADol; 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: [TRAMADOL] Drug Allergy 019 Intolerance, GI Upset [facility] (1 source) Prochlorperazine Drug Allergy 023 [facility] Repository (9 sources) Sulfacetamide / Sulfur Drug Allergy Unknown [employer] Other (1 source) Sulfonamides (Antibiotic) Drug allergy (disorder) [facility] Repository (1 source) Hydroxychloroquine; 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: [HYDROXYCHLOROQUINE ] Drug Allergy 006 [facility] Repository Medications Current Medications Medication Drug Class(es) Dates Sig (Normalized) Sig (Original) [id number] actuat albuterol 0.09 mg/actuat metered dose [...] TAB PO Daily July 29, 2022 12:00am Howard 3 (9 sources) Howard 3 Active Howard-3 Fatty Acids (1 source) Start : 07-29 take 1000 mg by mouth once daily Howard-3 Fatty Acids Active 1000 MG PO Daily [...] Comment on above: TAKE 1 CAPSULE BY [facility] EVERY DAY travoprost (13 sources) Prostaglandin Analog [...] 12:00am Start: 07-07-2020 take 1 capsule by [facility] once daily coenzyme Q10 (CO Q-10) 100 mg cap capsule Take 1 capsule by mouth once daily. 0 07/07/2020 Active Comment on above: Take 1 capsule by [facility] once daily. Vitamin B Complex (1 [...] mo [facility] daily at bedtime for 30 [...] capsule by mo [facility] as needed. lubiprostone 0.008 mg oral capsule [...] bedtime as needed. Take 1 capsule by [facility] once daily. 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 CURRENT DRUG THERAPY] Onset: 2 Episodic Other [...] Range Facility Office Visiton 02-28-2024 Follow-up visit [id number] Marly Jaffe 1955 F Date Provider Department Center 02/28/2024 KIERAN FRIEDMAN [facility] Family History Problem Relation Age of Onset Stroke Mother Hypertension Mother Cancer Mother Stroke Father Other Father Family Status - Relation Status Age at Mother Father Level of Service:08955 NC OFFICE/OUTPATIENT ESTABLISHED LOW MDM 20 MIN Normal [facility] Office Visiton 12-01-2023 Follow-up visit [id number] Marly Jaffe 1955 F Date Provider Department Center 12/01/2023 RUBI [facility] Family History Problem Relation Age of Onset Stroke Mother Hypertension Mother Cancer Mother Stroke Father Other Father Family Status - Relation Status Age at Mother Father Level of Service:98463 NC OFFICE/OUTPATIENT NEW LOW MDM 30 MINUTES Normal [facility] CT Maxillofacial w/o Contras ton 08-19-2023 [...] MD Transcribed by: CHRISTIAN Technologist: MARTELL Negro [facility] Consent for Treatmenton 08-04 Consent for Treatment [id number] #1.00TIFF [facility] Physician Orderon 07-08-2023 Physician Order [id number] #1.00TIFF [facility] Office Visiton 06-20-2023 Follow-up visit [id number] Marly Jaffe 1955 F Date Provider Department Center 06/20/2023 Abraham-JOSE VILLALOBOS CARD [facility] Family History Problem Relation Age of Onset Stroke Mother Hypertension Mother Cancer Mother Stroke Father Other Father Family Status - Relation Status Age at Mother Father Level of Service:85689 NC OFFICE/OUTPATIENT ESTABLISHED MOD MDM 30 MIN [facility] HPon 05-19-2023 H&P reviewed. The patient was examined and there are no changes to the H&P. [facility] HP H&P reviewed. The patient was examined and there are no changes to the H&P. [facility] NURSNOTEon 05-19-[address] Petersen for pt to discharge at this time. [facility] CRISTALE RN educated pt on d/c instructions. RN encouraged pt to voice any questions or concerns. Pt verbalizes no questions or concerns at this time. Pt was wheeled off of unit with all of belongings. [facility] HPon 04-26-2023 [facility] Cardiology Consult Note Reason for [...] oriented to (more content not included)... Normal [facility] Office Visiton 04-26-2023 Follow-up visit [id number] Marly Jaffe 1955 F Date Provider Department Center 04/26/2023 KIERAN FRIEDMAN [facility] Family History Problem Relation Age of Onset Stroke Mother Hypertension Mother Cancer Mother Stroke Father Other Father Family Status - Relation Status Age at Mother Father Level of Service:13438 NC OFFICE/OUTPATIENT ESTABLISHED HIGH [facility] 40-54 MIN Normal [facility] CT LUNG CANCER SCREENINGon 0 08-04-2022 [...] by: ÁNGEL PUGH Date: 2022-08-04 14:41 Normal [facility] XR RIBS BIL_PA CH 4V OR [...] by: ÁNGEL PUGH Date: 2022-08-04 14:45 Normal [facility] XR TSPINE MIN 4 VIEWSon XR [...] by: ÁNGEL PUGH Date: 2022-08-04 14:42 Normal [facility] Desean 07-29-2022 L Specimen: [id number] Received: 07/29/22 Status: HUY Malonewinifred Num: [id number] Spec Type: Surgical Subm Dr: Enrrique Grant MD Tissues: A Colon Biopsy (POLYP SIGMOID) Procedures: HE/2, Gross/Micro L4 Age/ Patient Sex Location Account Attending Physician Marly Jaffe 67/F [id number] Enrrique Grant MD SPEC NUM: [id number] RECD: 07/29/22 STATUS: HUY MEJIA NUM: [id number] SALOMON: 07/29/22- [facility] DR: Enrrique Grant MD ENTERED: 07/29/22 [facility] DR: ENRIQUETA TYPE: Surgical DEPT: S ORDERED: [...] support the above pathologic diagnosis. CPT Codes 85676 Specimen: [id number] Received: 07/29/22 Status: HUY Mejia Num: [id number] Spec Type: Surgical Subm Dr: Enrrique Grant MD Tissues: A Colon Biopsy (POLYP SIGMOID) Procedures: ANGELICA/Tadeo Cabrera/Christophe L4 Patient: Marly Jaffe [id number] (Continued) Signed (signature on file) Benjamin Wolf MD 07/30/22 1133 Normal [facility] ECHOCARDIO M/2D COMPLETEon 0 07-13-2022 ECHOCARDIO M/2D COMPLETE Patient: MARLY JAFFE Exam Date: 07/13/2022 : 1955 Gender:F Ordering : KIERAN LAIO Admission #: [id number] Family : Order #: [id number] CLICK HERE TO VIEW EXAM ECHOCARDIOGRAM REPORT [...] Mak M.D. on 07/15/2022 at 10:33 Normal [facility] MG MAMM SCREEN 3D LAWRENCE CADon 06-23-2022 MG MAMM SCREEN 3D LAWRENCE CAD Patient: MARLY JAFFE Exam Date: 06/23/2022 : 1955 Gender:F Ordering : DR MERCY MORGAN . Admission #: [id number] Family : Order #: [id number] CLICK HERE TO VIEW EXAM RADIOLOGY REPORT [...] Pugh M.D. on 06/23/2022 at 14:39 Normal [facility] PAP ACOG PANEL 2: 30 to 65on 06-23-2022 . . Normal [facility] Comment on above: Performed By: #### 4 [id number] #### [facility] [address] [place] [address] [address] Jeramy Dumont Age Gdln ACOG Testing Comment Normal [facility] Comment on above: Result Comment: <21 or >65 or no age provided Performed By: #### 4 [id number] #### [facility] [address] [address] [address] Jeramy Dumont DIAGNOSIS: Comment Normal [facility] Comment on above: Result Comment: NEGA TIVE FOR INTRAEPITHELIAL LESION OR MALIGNANCY. REACTIVE CELLULAR CHANGES AND/OR REPAIR ARE PRESENT. Performed By: #### 4 [id number] #### [facility] [address] [address] [address] Jeramy Dumont Electronically signed by: Comment Normal [facility] Comment on above: Result Comment: Bere Aguilar MD, Pathologist Performed By: #### 4 [id number] #### [facility] [address] [place] [address] Dr. Jeramy Dumont Methodology: Comment Normal [facility] Comment on above: Result Comment: This liquid based ThinPrep(R) pap test was screened with the use of an image guided system. Performed By: #### 4 [id number] #### [facility] [address] [place] [address] Dr. Jeramy Dumont Note: Comment Normal [facility] Comment on above: Result Comment: The Pap smear is a screening test designed to aid in the detection of premalignant and malignant conditions of the uterine cervix. It is not a diagnostic procedure and should not be used as the sole means of detecting cervical cancer. Both false-positive and false-negative reports do occur. . Performed By: #### 4 [id number] #### [facility] [address] [place] [address] Dr. Jeramy Dumont Performed by: Comment Normal [facility] Comment on above: Result Comment: Norma Mancia District Claims Manager (ASCP) Performed By: #### 4 [id number] #### [facility] [address] [place] [address] Dr. Jeramy Dumont Specimen adequacy: Comment Normal [facility] Comment on above: Result Comment: Sati sfactory for evaluation. Endocervical and/or squamous metaplastic cells (endocervical component) are present. Performed By: #### 4 [id number] #### [facility] [address] [place] [address] Dr. Jeramy Dumont XR DEXA BONE DENSITYon [...] ÁNGEL PUGH Date: 2022-06-23 11:46 Normal [facility] CBC AUTO DIFFon 04-27-2022 BASO # 0.1 103/ul Normal 0.0-0.1 [facility] Comment on above: Performed By: #### C BC ####[facility] [address] [address]Dr. Jeramy Dumont Basophils/100 WBC (Bld) 0.6 % Normal 0.2-2.0 [facility] Comment on above: Performed By: #### C BC ####[facility] [address] [place], [place] [address]Dr. Jeramy Dumont EO # 0.2 103/ul Normal 0.0-0.7 [facility] Comment on above: Performed By: #### C BC ####[facility] [address] [place], [place] [address]Dr. Jeramy Dumont Eosinophils/100 WBC (Bld) 1.9 % Normal 0.9-7.0 [facility] Comment on above: Performed By: #### C BC ####[facility] [address] [place], [place] [address]Dr. Jeramy Dumont Erythrocyte distribution width (RBC) [Ratio] 13.3 % Normal 11.0-15.0 [facility] Comment on above: Performed By: #### C BC ####[facility] [address] [place], [place] [address]Dr. Jeramy Dumont Hematocrit (Bld) [Volume fraction] 41.1 % Normal 36.0-48.0 [facility] Comment on above: Performed By: #### C BC ####[facility] [address] [place], [place] [address]Dr. Jeramy Dumont Hemoglobin (Bld) [Mass/Vol] 13.4 g/dL Normal 12.0-16.0 [facility] Comment on above: Performed By: #### C BC ####[facility] [address] [id number]. Jeramy Dumont IG # 0.02 10e3/ul Normal 0.00-0.03 [facility] Comment on above: Performed By: #### C BC ####[facility] [address] [address]Dr. Jeramy Dumont IG % 0.2 % Normal 0.0-0.5 [facility] Comment on above: Performed By: #### C BC ####[facility] [address] [id number]. Jeramy Dumont LYMPH # 3.2 103/ul Normal 1.2-3.8 [facility] Comment on above: Performed By: #### C BC ####[facility] [address] [address]Dr. Jeramy Dumont Lymphocytes/100 WBC (Bld) 39.1 % Normal 20.5-60.0 [facility] Comment on above: Performed By: #### C BC ####[facility] [address] [id number]. Jeramy Dumont MANUAL DIFF REQ NO Normal [facility] Comment on above: Performed By: #### C BC ####[facility] [address] [id number]. Jeramy Dumont MCH (RBC) [Entitic mass] 30.7 pg Normal 26.7-34.0 [facility] Comment on above: Performed By: #### C BC ####[facility] [address] [place], [place] [address]Dr. Jeramy Dumont MCHC (RBC) [Mass/Vol] 32.6 g/dL Normal 29.9-35.2 [facility] Comment on above: Performed By: #### C BC ####[facility] [address] [address]Dr. Jeramy Dumont MCV (RBC) [Entitic vol] 94.3 fL Normal 81.0-99.0 [facility] Comment on above: Performed By: #### C BC ####[facility] [address] [id number]. Jeramy Dumont MONO # 0.6 103/ul Normal 0.3-0.8 [facility] Comment on above: Performed By: #### C BC ####[facility] [address] [id number]. Jermay Dumont Monocytes/100 WBC (Bld) 6.6 % Normal 1.7-12.0 [facility] Comment on above: Performed By: #### C BC ####[facility] [address] [id number]. Jeramy Dumont NEUT # 4.3 103/ul Normal 1.4-6.5 [facility] Comment on above: Performed By: #### C BC ####[facility] [address] [place], [place] [address]Dr. Jeramy Dumont Neutrophils/100 WBC (Bld) 51.6 % Normal 43.0-75.0 [facility] Comment on above: Performed By: #### C BC ####[facility] [address] [place], [place] [address]Dr. Jeramy Dumont Platelet mean volume (Bld) [Entitic vol] 9.8 fL Normal 9.5-13.5 [facility] Comment on above: Performed By: #### C BC ####[facility] [address] [address]Dr. Jeramy Dumont PLT 283 103/ul Normal 150-450 [facility] Comment on above: Performed By: #### C BC ####[facility] [address] [place], [place] [address]Dr. Jeramy Dumont RBC 4.36 106/ul Normal 4.20-5.40 [facility] Comment on above: Performed By: #### C BC ####[facility] [address] [address]Dr. Jeramy Dumont WBC 8.3 103/ul Normal 4.0-11.0 [facility] Comment on above: Performed By: #### C BC ####[facility] [address] [id number] Dumont FREE T3on 04-27-2022 FREE T3 2.20 pg/mlL Normal 2.18-3.98 [facility] Comment on above: Performed By: #### F T3, TSH, BMP, LIVER ####[facility] [address] [id number]. Jeramy Dumont FREE T4on 04-27-2022 Free T4 [Mass/Vol] 0.96 ng/dL Normal 0.76-1.46 [facility] Comment on above: Performed By: #### F T4 ####[facility] [address] [address]DrTeddy Dumont LIVER PROFILEon 04-27-2022 Albumin [Mass/Vol] 3.7 g/dL Normal 3.4-5.0 [facility] Comment on above: Performed By: #### F T3, TSH, BMP, LIVER #### [facility] [address] [address] [address] Jeramy Duomnt Albumin/Globulin [Mass ratio] 1.1 {ratio} Normal [facility] Comment on above: Performed By: #### F T3, TSH, BMP, LIVER #### [facility] [address] [address] [address] Jeramy Dumont ALP [Catalytic activity/Vol] 64 U/L Normal 46-116 [facility] Comment on above: Performed By: #### F T3, TSH, BMP, LIVER #### [facility] [address] [address] [address] Jeramy Dumont ALT [Catalytic activity/Vol] 28 U/L Normal 14-59 [facility] Comment on above: Performed By: #### F T3, TSH, BMP, LIVER #### [facility] [address] [address] [address] Jeramy Dumont AST [Catalytic activity/Vol] 16 U/L Normal 15-37 [facility] Comment on above: Performed By: #### F T3, TSH, BMP, LIVER #### [facility] [address] [address] [address] Jeramy Dumont BILI, CONJUGATED 0.1 mg/dL Normal 0.0-0.2 [facility] Comment on above: Performed By: #### F T3, TSH, BMP, LIVER #### [facility] [address] [address] [address] Jermay Dumont Bilirubin [Mass/Vol] 0.2 mg/dL Normal 0.2-1.0 [facility] Comment on above: Performed By: #### F T3, TSH, BMP, LIVER #### [facility] [address] [place] [address] Dr. Jeramy Dumont Globulin (S) [Mass/Vol] 3.5 g/dL Normal T [facility] Comment on above: Performed By: #### F T3, TSH, BMP, LIVER #### [facility] [address] [place] [address] Dr. Jeramy Dumont Protein [Mass/Vol] 7.2 g/dL Normal 6.4-8.2 [facility] Comment on above: Performed By: #### F T3, TSH, BMP, LIVER #### [facility] [address] [place] [address] Dr. Jeramy Dumont PROF CHEM 8 (BAS METB)on Anion gap [Moles/Vol] 10.3 mmol/L Normal [facility] Comment on above: Performed By: #### F T3, TSH, BMP, LIVER #### [facility] [address] [place] [address] Dr. Jeramy Dumont Calcium [Mass/Vol] 9.0 mg/dL Normal 8.5-10.1 [facility] Comment on above: Performed By: #### F T3, TSH, BMP, LIVER #### [facility] [address] [place] [address] Dr. Jeramy Dumont Chloride [Moles/Vol] 105 mmol/L Normal 98-107 [facility] Comment on above: Performed By: #### F T3, TSH, BMP, LIVER #### [facility] [address] [place] [address] Dr. Jeramy Dumont CO2 [Moles/Vol] 30.7 mmol/L Normal 21.0-32.0 [facility] Comment on above: Performed By: #### F T3, TSH, BMP, LIVER #### [facility] [address] [address] [address] Jeramy Dumont Creatinine [Mass/Vol] 0.85 mg/dL Normal 0.55-1.02 [facility] Comment on above: Performed By: #### F T3, TSH, BMP, LIVER #### [facility] [address] [address] [address] Jeramy Dumont EGFR-AF SINGAPOREAN >60 Normal >=60 [facility] Comment on above: Performed By: #### F T3, TSH, BMP, LIVER #### [facility] [address] [place] [address] Dr. Jeramy Dumont EGFR-NON AF SINGAPOREAN >60 Normal >=60 [facility] Comment on above: Performed By: #### F T3, TSH, BMP, LIVER #### [facility] [address] [place] [address] Dr. Jeramy Dumont Glucose [Mass/Vol] 101 mg/dL Normal 74-106 [facility] Comment on above: Performed By: #### F T3, TSH, BMP, LIVER #### [facility] [address] [place] [address] Dr. Jeramy Dumont Potassium [Moles/Vol] 4.0 mmol/L Normal 3.5-5.1 [facility] Comment on above: Performed By: #### F T3, TSH, BMP, LIVER #### [facility] [address] [address] [address] Jeramy Dumont Sodium [Moles/Vol] 142 mmol/L Normal 136-145 [facility] Comment on above: Performed By: #### F T3, TSH, BMP, LIVER #### [facility] [address] [place] [address] Dr. Jeramy Dumont Urea nitrogen [Mass/Vol] 15.0 mg/dL Normal 7.0-18.0 [facility] Comment on above: Performed By: #### F T3, TSH, BMP, LIVER #### [facility] [address] [place], [place] [address] Dr. Jeramy Dumont Urea nitrogen/Creatinine [Mass ratio] 17.6 mg/mg Normal [facility] Comment on above: Performed By: #### F T3, TSH, BMP, LIVER #### [facility] [address] [place], [place] [address] Dr. Jeramy Dumont TSHon 04-27-2022 TSH 0.960 uIU/mL Normal 0.358-3.740 [facility] [place] Comment on above: Performed By: #### F T3, TSH, BMP, LIVER ####[facility] [address] [place], [place] [address]OcDr. Jeramy Dumont [facility]on 10-03 SARS-CoV-2 (COVID-19) RNA TRAVON+probe Ql (Unsp [...] for this test is supported by the [place] of Health and Human Service's (HHS's) declaration [...] with SARS-CoV-2. Performed By: #### C VDTBH ####[facility] [address] [place], [place] [address]IhDr. Jeramy Dumont Established Visit (Gastroent erology)on 04-30-2020 Established Visit (Gastroenterology) Diagnoses/Problems Assessed Chronic idiopathic constipation (564.00) (K59.04) Esophageal reflux (530.81) (K21.9) Orders Chronic idiopathic constipation Start: Amitiza 8 MCG Oral Capsule; Take 1 capsule twice daily Rx By: Krzysztof Larkin; Dispense: 0 Days ; #:60 Capsule; Refill: 1;For: Chronic idiopathic constipation; ASHLYN = N; Verified Transmission to [facility][id number]; Last Updated By: BrandCont; 04/30/2020 1:37:03 PM Esophageal reflux Renew: Omeprazole 20 MG Oral Capsule Delayed Release; TAKE 1 CAPSULE DAILY Rx By: Krzysztof Larkin; Dispense: 0 Days ; #:90 Capsule; Refill: 1;For: Esophageal reflux; ASHLYN = N; Verified Transmission to [facility] #[id number]; Last Updated By: BrandCont; 04/30/2020 1:37:11 PM Patient Discussion/Summary Change omeprazole [...] Daily Oral Tablet Vitals Vital Signs Recorded: [id number] 01:17PM Xieusdhddsd57 F Height5 ft 3 in Ezwbso657 lb BMI Hdlftczaqs32.74 BSA Calculated1.63 Physical Exam Constitutional General appearance: [...] [facility] MRI BRAIN WO/W IVCONon 02-13 [facility] C-Reactive Proteinon 019 CRP mass conc mg/L Normal 0.0-0.4 [facility] Comment on above: Performed By: #### C BCDIF, CRP #### [address] [place] [address] #### WSR #### [facility] [address] [address] CBC and Differentialon 10-31 Abs Baso 0.05 k/uL Normal <0.11 [facility] Comment on above: Performed By: #### C BCDIF, CRP #### [address] [place] [address] #### WSR #### [facility] [address] [place] [address] Abs Davidson 0.49 k/uL Normal <0.87 [facility] Comment on above: Performed By: #### C BCDIF, CRP #### [address] [place] [address] #### WSR #### [facility] [address] [place] [address] Abs Neut 6.28 k/uL Normal 1.45-7.50 [facility] Comment on above: Performed By: #### C BCDIF, CRP #### [address] [place] [address] #### WSR #### [facility] [address] [place] [address] Absolute nRBC <0.01 Normal <0.01 [facility] Comment on above: Performed By: #### C BCDIF, CRP #### [address] [place] [address] #### WSR #### [facility] [address] [place] [phone] Basophils/100 WBC (Bld) 0.6 % Normal [facility] Comment on above: Performed By: #### C BCDIF, CRP #### [address] [place] [address] #### WSR #### [facility] [address] [place] [phone] DTYPE Auto Diff [facility] Comment on above: Performed By: #### C BCDIF, CRP #### [address] [place] [address] #### WSR #### [place] [address] [place] [phone] Eosinophils #/vol (Bld) 0.08 10*3/uL Normal <0.46 [facility] Comment on above: Performed By: #### C BCDIF, CRP #### [address] [place] [address] #### WSR #### [place] [address] [place] [phone] Eosinophils/100 WBC (Bld) 0.9 % Normal [facility] Comment on above: Performed By: #### C BCDIF, CRP #### [address] [place] [address] #### WSR #### [facility] [address] [place] [phone] Erythrocyte distribution width Ratio (RBC) 13.5 % Normal 11.5-15.0 [facility] Comment on above: Performed By: #### C BCDIF, CRP #### [address] [place] [address] #### WSR #### [place] [address] Hematocrit Volume Fraction (Bld) 42.3 % Normal 36.0-46.0 [facility] Comment on above: Performed By: #### C BCDIF, CRP #### [address] [place] [address] #### WSR #### [place] [address] Hemoglobin mass conc (Bld) 14.0 g/dL Normal 11.5-15.5 [facility] Comment on above: Performed By: #### C BCDIF, CRP #### [address] [place] [address] #### WSR #### [place] [address] Lymphocytes #/vol (Bld) 2.07 10*3/uL Normal 1.00-4.00 [facility] Comment on above: Performed By: #### C BCDIF, CRP #### [address] [place] [address] #### WSR #### [place] [phone] Lymphocytes/100 WBC (Bld) 23.1 % Normal [facility] Comment on above: Performed By: #### C BCDIF, CRP #### [address] [place] [address] #### WSR #### [place] [phone] MCH Entitic mass (RBC) 31.1 pG Normal 26.0-34.0 [facility] Comment on above: Performed By: #### C BCDIF, CRP #### [address] [place] [address] #### WSR #### [facility] [address] [place], [place] [address] MCHC mass conc (RBC) 33.1 g/dL Normal 30.5-36.0 [facility] Comment on above: Performed By: #### C BCDIF, CRP #### [address] [place] [place] [address] #### WSR #### [facility] [address] [place] [phone] MCV Entitic volume (RBC) 94.0 fL Normal 80.0-100.0 [facility] Comment on above: Performed By: #### C BCDIF, CRP #### [address] [place] [address] #### WSR #### [facility] [address] [place] [address] Monocytes/100 WBC (Bld) 5.5 % Normal [facility] Comment on above: Performed By: #### C BCDIF, CRP #### [address] [place] [address] #### WSR #### [facility] [address] [place], [place] [address] Neutrophils/100 WBC (Bld) 69.9 % Normal [facility] Comment on above: Performed By: #### C BCDIF, CRP #### [address] [place] [address] #### WSR #### [facility] [address] [place], [place] [address] NRBCs 0.0 /100 WBC Normal 0 [facility] Comment on above: Performed By: #### C BCDIF, CRP #### [address] [place] [place] [address] #### WSR #### [facility] [address] [place] [address] Platelet mean volume Entitic volume (Bld) 9.5 fL Normal 9.0-12.7 [facility] Comment on above: Performed By: #### C BCDIF, CRP #### [address] [place] [place] [address] #### WSR #### [place] [address] [place] [address] Platelets #/vol (Bld) 279 10*3/uL Normal 150-400 [facility] Comment on above: Performed By: #### C BCDIF, CRP #### [address] [place] [place] [address] #### WSR #### [place] [address] RBC #/vol (Bld) 4.50 10*6/uL Normal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 11/04/2017 Tobacco user 05/03/2013 documented as of this encounter (statuses as of 06/21/2022) [facility]12[facility] History of Past illness Narrative* Problem Noted Date Diagnosed Date Resolved Date Screening breast examination 06/05/2012 05/03/2013 Chest pain 09/17/2011 05/03/2013 Abnormal mammogram 08/02/2011 8 Screening breast examination 03/30/2011 08/02/2011 Colon cancer screening 03/03/200908/02 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 01/24/2009 10/22/2013 Dyspareunia 11/04/2017 Tobacco user 05/03/2013 documented as of this encounter (statuses as of 05/08/2023) [facility] No data available for this section [facility] Diagnosis Encounter for screening mammogram for breast cancer documented in this encounter [facility]* Diagnosis Onset Date Resolution Status Encounter for screening colonoscopy [facility] Work Phone: Evaluation note* Diagnosis Chronic mixed headache syndrome Other headache syndromes documented in this encounter [facility] CenterEvaluation noteNo [facility] dakick Other Hospital Discharge instructions Additional Instructions DISCHARGE [...] kiwi fruit Repeat colonoscopy in [address] [facility] 1 p.o. every morning -Notify the doctor if you have any problems. -Office number [phone] [facility]als [facility] Work Phone: Hospital Discharge instructions No data available for this section [facility]* Name Dates Details Instructions not documented [facility] Work Phone: Progress note No data available for this section [facility] for referral (narrative)* Diagnostic Procedure Only (Routine) - Pending Review Specialty Diagnoses / Procedures Referred By Zaid gutiérrez Referred To Contact [facility] Diagnoses Encounter for screening mammogram for breast cancer Procedures DOLORES SCREENING SCREENING MAMMOGRAPHY BI 2-[place] [address] [place] [address] [facility] [address] [place] [address] Referral ID Status Reason Start Date Expiration Date Visits Requested Visits Authorized [id number] Pending Review Auto-Generat ed Referral 2 07/16/2023 1 1 [facility] CenterReason for referral (narrative)* Diagnostic Procedure Only (Routine) - Closed Specialty Diagnoses / Procedures Referred By Contac t Referred To Contact [facility] IMAGING Diagnoses Chronic mixed headache syndrome G44.89 (ICD-10-CM) - Chronic mixed headache syndrome Procedures MRI BRAIN WO/W IVCON MRI BRAIN COMBO MRI BRAIN WO/[place]CON Jyoti García [place] [address] [place] [address] [place] [address] Referral ID Status Reason Start Date Expiration Date V isits Requested Visits Authorized [id number] Closed Auto-Generate d Referral 02/11/2020 07/03/2020 1 1 [facility] Summary Purpose Family History No Family History Records Found Relationship Condition Age at Onset Recorded Date/T bsihop brother Malignant neoplasm of colon Unknown sister Malignant neoplasm of bone Unknown sister Malignant neoplasm of pancreas Unknown Advance Directives No Advanced Directives Records FoundDocuments on File Type Date Recorded 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 Advance Directive(s) 10/31/2018 9:16 AM Advance Directive(s) 12/04/2012 9:42 PM Advance Directive(s) 11/29/2012 9:09 PM Documents on File Type Date Recorded 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 Advance Directive(s) 12/04/2012 9:42 PM Advance Directive(s) 11/29/2012 9:09 PM Documents on File Type Date Recorded 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 Advance Directive(s) 12/04/2012 9:42 PM [...] Diagnosis 1 Post-nasal drainage (R09.82) Referral Organization [facility] kaylah Referring Provider First Name Sharonda Referring Provider Last Name Michele Referring Provider Specialty [facility] Referred Organization [facility] Referred Provider Shaan Villalta Referred Address ,[place], [place],[address] Referred Provider Specialty Ear, Nose an d Throat Referral Priority Routine General Notes Iam Inessa 02:51:01 PM >received today, notes locked, ins attached, referral faxed Additional Source Comments INFORMATION SOURCE (unrecogn ized section and content) DATE CREATED AUTHOR 11/12/2018 [facility] DATE CREATED AUTHOR AUTHOR'S ORGANIZ ATION 06/18/2019 [facility] DATE CREATED AUTHOR AUTHOR'S ORGANIZ ATION 05/01/2020 [employer] DATE CREATED AUTHOR AUTHOR'S ORGANIZ ATION 08/01/2022 [facility] DATE CREATED AUTHOR AUTHOR'S ORGANIZ ATION 10/26/2022 [facility] DATE CREATED AUTHOR AUTHOR'S ORGANIZ ATION 05/30/2023 [facility] DATE CREATED AUTHOR AUTHOR'S ORGANIZ ATION 07/07/2023 [facility] DATE CREATED AUTHOR AUTHOR'S ORGANIZ ATION 08/20/2023 [facility] DATE CREATED AUTHOR AUTHOR'S ORGANIZ ATION 09/06/2023 [facility] EP[facility] DATE CREATED AUTHOR AUTHOR'S ORGANIZ ATION 03/08/2024 [facility] Source Comments (unrecognize d section and content) In the event this informatio n is protected by the Federal Confidentiality of Alcohol and Drug Abuse Patient Records regulations: The Federal rules restrict any use of the information to criminally investigate or prosecute any alcohol or drug abuse patient.[facility] CenterIn the event this information is protected by the Federal Confidentiality of Alcohol and Drug Abuse Patient Records regulations: The Federal rules restrict any use of the information to criminally investigate or prosecute any alcohol or drug abuse patient.[facility] CenterIn the event this information is protected by the Federal Confidentiality of Alcohol and Drug Abuse Patient Records regulations: The Federal rules restrict any use of the information to criminally investigate or prosecute any alcohol or drug abuse patient.[facility] CenterIn the event this information is protected by the Federal Confidentiality of Alcohol and Drug Abuse Patient Records regulations: The Federal rules restrict any use of the information to criminally investigate or prosecute any alcohol or drug abuse patient.[facility] Reason for Visit (unrecogniz ed section and content) Reason Comments Refill Request Reason Comments Radiology MRI Specialty Diagnoses / Procedures Referred By Contac t Referred To Contact MR IMAGING Diagnoses Chronic mixed headache syndrome G44.89 (ICD-10-CM) - Chronic mixed headache syndrome Procedures MRI BRAIN WO/W IVCON MRI BRAIN COMBO MRI BRAIN WO/[place]CON Jyoti García [place] [address] [place] [address] [place] [address] Referral ID Status Reason Start Date Expiration Date V isits Requested Visits Authorized [id number] Closed Auto-Generate d Referral 02/11/2020 07/03/2020 1 1 Care Teams (unrecognized sec tion and content) 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 Date [place] Date Jyoti García [place] [address] [place] [address] PCP - General Internal Medicine 09/11/19 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 Date [place] Jyoti García [place] [address] [place] [address] PCP - General Internal Medicine 09/11/19 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 [employer] [facility]. provides no warranty or guarantee of the accuracy or completeness of information in this document.
--- NOTE | 2024-03-28 14:46 | P.CN_ITS ---
Consult Note: HPI Data of Consult Patient: known to practice within the last 3 years Requesting Physician: Janet Ramirez NP Primary Care Provider: Estelle Bautista MD Consult Narrative Reason for consult: f/u Narrative: Ann Marie Mccain a pleasant 68 year old female presents for evaluation and management of chronic low back pain. Patient has a longstanding history of chronic low back pain secondary for lumbar spondylosis, previous lumbar RFAs with Dr Lake provided >50% improvement greater than 6 months. Patient engaged in PT/aquatherapy ongoing without benefit, historically has failed to benefit from PT greater than 6 weeks. Patient utilizing advil and tylenol with mild benefit, moderate relief from baclofen 5-10mg TID PRN and voltaren gel. MRI previoulsy ordered but has been denied until PT completed. Patient underwent bilateral L4-5 L5-S1 MBB #1 and #2 with significant pain relief, greater than 80% improvement for 6 hours following the injection. Patient was able to tolerate standing, walking, and housework with significantly less pain. cc:: CC: Janet Ramirez NP Review of Systems ROS Status of ROS 10 or more systems reviewed and unremark able except as noted in history and below Musculoskeletal Reports: back pain Meds Home Medications and Allergies Home Medications ?Medication ?Instructions ?Recorded ?Confirmed ?Type alendronate 35 mg tablet 35 mg PO .WEEKLY 06/30/23 03/20/24 History alprazolam 1 mg tablet 1 mg PO TID 06/30/23 03/20/24 History montelukast 10 mg tablet 10 mg PO BID 06/30/23 03/20/24 History omeprazole 20 mg capsule,delayed mg 06/30/23 History release travoprost 0.004 % eye drops drp ophthalmic (eye) 06/30/23 History amlodipine 5 mg tablet 2.5 mg PO DAILY 02/08/24 03/20/24 History ascorbic acid (vitamin C) 500 mg mg PO 02/08/24 History capsule aspirin 81 mg capsule 81 mg PO DAILY 02/08/24 03/20/24 History baclofen 10 mg tablet 10 mg PO TID PRN muscle spasm 02/08/24 03/20/24 History cholecalciferol (vitamin D3) 50 50 mcg PO DAILY 02/08/24 03/20/24 History mcg (2,000 unit) capsule collagen PO 02/08/24 History magnesium oxide 500 mg capsule 500 mg PO DAILY 02/08/24 03/20/24 History metoprolol tartrate 25 mg tablet 25 mg PO DAILY 02/08/24 03/20/24 History multivitamin 1 tab PO DAILY 02/08/24 03/20/24 History Allergies Allergy/AdvReac Type Severity Reaction Status Date / Time prochlorperazine Allergy Unknown Seizure Verified 03/20/24 08:33 [From Compazine] Sulfa (Sulfonamide Allergy Unknown Rash Verified 03/20/24 08:33 Antibiotics) Exam Constitutional Documenting provider has reviewed patient's vital signs: yes Common normals: oriented x3, healthy appearing, alert and well nourished General appearance: cooperative and anxious HENMT Common normals: normocephalic, hearing grossly normal bilaterally and moist oral mucous membranes Head and scalp: normocephalic Eye Common normals: PERRL Pupil: PERRL Neck & C-Spine Common normals: full ROM General: normal visual inspection Cervical spine: pain with cervical ROM Chest Common normals: inspection of chest normal Respiratory Common normals: normal respiratory effort, no retractions and no use of accessor y muscles Back & Pelvis Thoracic spine/upper back: ROM limited and pain with ROM Lumbar spine/lower back: ROM limited, pain with ROM, paraspinal muscle tenderness and straight leg raise negative bilaterally Other: positive facet loading bilaterally tenderness over L4-S1 facets Extremity Common normals: normal to inspection and full ROM Neuro Common normals: oriented x3, CN's II-XII intact bilaterally, moves all extremities, no focal motor deficits, no sensory deficits noted and deep tendon reflexes 2+ bilaterally Sensorium/orientation: alert Motor exam: strength 5/5 throughout and no movement abnormalities noted Psych Common normals: mental status grossly normal, thought process normal, cooperative, affect normal, speech normal and activity/motor behavior normal Speech: normal speech Thought process: normal thought process Results Additional Findings Additional findings: If on a controlled substance or opioids, I have checked an [place]AR[place] report on this patient and there are no aberrancies noted in the prescribing history.??If on a controlled substance or opioid a drug screen was completed and reviewed within the last year, and if there has not been a drug screen completed we ordered one today to monitor higher risk, state monitored pain medication use. As part of providing excellent, safe, comprehensive care, the following was completed at our patient's visit: 1. A medication reconciliation and review to ensure accurate knowledge of current/active medications, including asking our patients to inform us about any xuar-aju-nznfbys medications or herbal remedies/nutritional supplements/alternative remedies. 2. A review to specifically ensure our patients have had annual screening for screening for depression, screening for tobacco use, and screening for unhealthy alcohol use. For concerning screenings had a discussion with the patient, provided patient education, and recommended follow-up with primary care provider when appropriate. If patient noted with a risk of falling, they received education on strength, gait, and balance training to prevent future risk of falling. Assessment and Plan Assessment and Plan (1) Lumbar spondylosis: (2) Chronic prescription benzodiazepine use: (3) Osteoarthritis: (4) Muscle spasm: (5) Thoracic spondylosis: (6) Marijuana use: Assessment and Plan: suspected Plan bilateral L4-5 L5-S1 facet meidal branch thermal RFA with fluoroscopy due to anxiety and inability to safely tolerate. to be completed under fluoroscopy. risks vs benefits reviewed. procedure to be completed by Dr Kemp NNCP due to benzo use and suspected THC use continue tylenol and NSAID use PRN continue PT/aquatherapy f/u 1 month after RFA
== END 2024-03-28 13:38 | disposition home or self-care (01) ==
LOC: PM 13:37
PROVIDERS: PCP Family Medicine; Visit Provider Nurse Practitioner
DX: M47.816 Spondylosis without myelopathy or radiculopathy, lumbar region (principal); Z79.891 Long term (current) use of opiate analgesic; M19.90 Unspecified osteoarthritis, unspecified site; M62.838 Other muscle spasm; M47.814 Spondylosis without myelopathy or radiculopathy, thoracic region; Z79.899 Other long term (current) drug therapy
CPT/HCPCS: G0463

== ENCOUNTER 2024-04-16 07:18 | Day surgery (SDC) | payer MEDICARE, SELFPAY ==
--- OUTSIDE RECORDS SUMMARY | 2024-04-16 07:21 | XMS_ITS | CCD ---
Author Organization [facility] CliniSyct Care Team Providers Care 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 Name Role Phone ERWIN DYE Attending Unavailable [...] Jameel Primary Care Unavailable Enrrique Grant Unavailable [phone] ROSANA ., DR ANTONELLA [employer] [...] Referring Unavailable TIMMIS, SHAAN H Attending Unavailable KIERAN PETERSEN Referring Unavailable KEVIN, KARLOS Referring Unavailable GUILLEKIERAN Rock Referring Unavailable KEVIN, KARLOS Referring Unavailable KEVIN, KARLOS Referring Unavailable KIERAN PETERSEN Attending Unavailable KIERAN PETERSEN Attending Unavailable JOSE VILLALOBOS Attending Unavailable RUBI YOO Attending Unavailable KEVIN, KARLOS Referring Unavailable KEVIN, KARLOS Referring Unavailable KIERAN PETERSEN Admitting Unavailable KIERAN PETERSEN Attending Unavailable KEVIN, KARLOS Referring Unavailable KARLOS BROWN Referring Unavailable Allergies Allergy Classification Reported Allergen(s) Allergy Type Date of Onset Reaction(s) Facility Prochlorperazine (1 source) Prochlorperazine Drug Allergy [facility] [employer] Work Phone: Sulfonamides (antibiotic) (1 source) Sulfonamides (Antibiotic) [facility]: (5 sources) Hydroxychloroquine; 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: [HYDROXYCHLOROQUINE SULFATE] Drug Allergy 006 [facility] [place] Repository (8 sources) Sulfonamides (Antibiotic); 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: [SULFA (SULFONAMIDE ANTIBIOTICS)] Propensity to adverse reactions to drug (disorder) Unknown Reaction [place] [facility]ository (6 sources) AMOXICILLIN-POT CLAVULANATE; 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: [AMOXICILLIN-POT CLAVULANATE] Propensity to adverse reactions to drug (disorder) 019 [facility] [place] Repository (5 sources) PROCHLORPERAZINE EDISYLATE; 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: [PROCHLORPERAZINE EDISYLATE] Propensity to adverse reactions to drug (disorder) 006 [place] Repository (4 sources) Sulfonamides (Antibiotic) drug allergy [facility] [employer] Work Phone: (1 source) drug allergy [facility] [employer] Work Phone: (13 sources) Prochlorperazine; 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: [Compazine] Drug Allergy Unknown [facility] Repository (6 sources) Prochlorperazine; 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: [PROCHLORPERAZINE] Drug Allergy 006 Other: See Comments [facility] (5 sources) traMADol; 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: [TRAMADOL] Drug Allergy 019 Intolerance, GI Upset [facility] (1 source) Prochlorperazine Drug Allergy 023 [facility] Repository (9 sources) Sulfacetamide / Sulfur Drug Allergy Unknown [employer] Other (1 source) Sulfonamides (Antibiotic) Drug allergy (disorder) [facility] Repository (1 source) Hydroxychloroquine; 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: [HYDROXYCHLOROQUINE ] Drug Allergy 006 [facility] Repository Medications Current Medications Medication Drug Class(es) Dates Sig (Normalized) Sig (Original) [id number] 60 actuat albuterol 0.09 mg/actuat metered dose [...] oral tablet (10 sources) Vitamin C Start: take 1 g by mouth once daily [...] Start: 03-28-2017 take 1 capsule by mo [facility] once daily Cholecalciferol, Vitamin [...] sources) Start: 07-29-2022 take 1 tablet by [facility] once daily Magnesium Active 1 TAB [...] TAB PO Daily July 29, 2022 12:00am [place] 3 (9 sources) [place] 3 Active [place]-3 Fatty Acids (1 source) Start : 07-29 take 1000 mg by mouth once daily [place]-3 Fatty Acids Active 1000 MG PO Daily [...] on above: TAKE 1 CAPSULE BY MO [facility] EVERY DAY travoprost (13 sources) Prostaglandin Analog [...] Start: 07-07-2020 take 1 capsule by mo [facility] once daily coenzyme Q10 (CO Q-10) 100 mg cap capsule Take 1 capsule by mouth once daily. 0 07/07/2020 Active Comment on above: Take 1 capsule by [facility] once daily. Vitamin B Complex (1 [...] Comment on above: Take 1 tablet by [facility] twice daily as needed for Muscle [...] Comment on above: Take 1 capsule by [facility] daily at bedtime for 30 days. [...] on above: Take 1 capsule by mo [facility] as needed. lubiprostone 0.008 mg oral [...] as needed. Take 1 capsule by mo [facility] once daily. MV with Cfk-Witqhpym-Avrdlc (CENTRUM SILVER) 0.4-300-250 mg-mcg-mcg tab (1 source) Start: 07-07-19 21 take 1 tablet by mouth once daily MV with Aux-Xrvvmugf-Ixmbvr (CENTRUM SILVER) 0.4-300-250 mg-mcg-mcg tab Take 1 [...] on above: Take 1 capsule by mo [facility] daily at bedtime. triamcinolone acetonide 40 mg/ml injectable suspension (8 sources) Corticosteroid Start: 05-19-20 Kenalog-40 May, 40 mg Womens One Daily [...] EXPOS COVID-19] Onset: 2 Unclassified (1 source) Supraventricular tachycardia, unspecified; 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: [Supraventricular tachycardia, unspecified] Onset: 3 Unclassified (1 source) Other supraventricular tachycardia; 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: [Other supraventricular tachycardia] Onset: 3 Past or Other Problems Problem Classification Problem Date Documented Da te Episodic/Chronic Immunizations and screening for infectious disease (1 source) Encounter for screening for human papillomavirus (HPV); 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: [ENC SCREENING HUMAN PAPILLOMAVIRUS] Onset: 2 Episodic Menopausal disorders (4 sources) Postmenopausal state; 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: [Hormone replacement therapy] Onset: 2 06-05-2012 Episodic Other aftercare (4 sources) Other jail (current) drug therapy; 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: [OTH [employer]M [employer] MEMBER CURRENT DRUG THERAPY] Onset: 2 Episodic Other [...] of malignant neoplasm of digestive organs; 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: [[facility] HX SIVA NEOPLASM DIGESTIV ORGN] Onset: 2 Episodic Spondylosis; intervertebral disc disorders; other back problems (10 sources) Dorsalgia, unspecified; 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: [Spinal stenosis] Onset: 9 03-04-2009 Episodic Syncope (4 sources) Syncope; 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: [Syncope and collapse] Onset: 2 09-17-2011 Episodic Unclassified (1 source) Chronic cough R05.3 Unclassified (1 source) Supraventricular tachycardia, unspecified; 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: [Supraventricular tachycardia, unspecified] Onset: 4 Unclassified (1 source) Other supraventricular tachycardia; 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: [Other supraventricular tachycardia] Onset: 3 NEGATED: Highlighted row has not occurred!Residual codes; unclassified (6 sources) Disease Episodic Results Test Name Value Interpretation Reference Range Facility 36on 03-30-2024 36 Patient called to report BP's since stopping amlodipine per Dr. Petersen last month. SPB has been 125-135 systolic. HR in the 60's. I advised patient these were good numbers and she should continue. She verbalized understanding. Normal [facility] Office Visiton 02-28-2024 Follow-up visit [id number] Marly Jaffe 1955 F Date Provider Department Center 02/28/2024 KIERAN FRIEDMAN CHELSEY [facility] [place] Family History Problem Relation Age of Onset Stroke Mother Hypertension Mother Cancer Mother Stroke Father Other Father Family Status - Relation Status Age at Mother Father Level of Service:86270 [place] OFFICE/OUTPATIENT ESTABLISHED LOW MDM 20 MIN Normal [facility] Office Visiton 12-01-2023 Follow-up visit [id number] Marly Jaffe 1955 F Date Provider Department Center 12/01/2023 [id number] LIZMARCELL [place] Family History Problem Relation Age of Onset Stroke Mother Hypertension Mother Cancer Mother Stroke Father Other Father Family Status - Relation Status Age at Mother Father Level of Service:50423 [place] OFFICE/OUTPATIENT NEW LOW MDM 30 MINUTES Normal [facility] CT Maxillofacial w/o Contras ton 08-19-2023 CT [...] Gordillo MD Transcribed by: CHRISTIAN Technologist: MARTELL [facility] Consent for Treatmenton 08-04 Consent for Treatment [id number] #1.00TIFF [facility] Physician Orderon 07-08-2023 Physician Order [id number] #1.00TIFF [facility] Office Visiton 06-20-2023 Follow-up visit [id number] Marly Jaffe 1955 F Date Provider Department Center 06/20/2023 Abraham-JOSE VILLALOBOS CARD [facility] Family History Problem Relation Age of Onset Stroke Mother Hypertension Mother Cancer Mother Stroke Father Other Father Family Status - Relation Status Age at Mother Father Level of Service:57533 [place] OFFICE/OUTPATIENT ESTABLISHED MOD MDM 30 MIN [facility] HPon 05-19-2023 HP H&P reviewed. The patient was examined and there are no changes to the H&P. [facility] HP H&P reviewed. The patient was examined and there are no changes to the H&P. [facility] NURSNOTEon 05-19-[address] Petersen for pt to discharge at this time. [facility] NURSNOTE RN educated pt on d/c instructions. RN encouraged pt to voice any questions or concerns. Pt verbalizes no questions or concerns at this time. Pt was wheeled off of unit with all of belongings. [facility] HPon 04-26-2023 [facility] Cardiology Consult Note Reason for visit: [...] oriented to (more content not included)... Normal [facility] Office Visiton 04-26-2023 Follow-up visit [id number] Marly Jaffe Brittney 1955 F Date Provider Department Center 04/26/2023 Carli-KIERAN PETERSEN SUSANA [facility] [place] Family History Problem Relation Age of Onset Stroke Mother Hypertension Mother Cancer Mother Stroke Father Other Father Family Status - Relation Status Age at Mother Father Level of Service:67453 [place] OFFICE/OUTPATIENT ESTABLISHED HIGH MDM 40-54 MIN Normal [facility] CT LUNG CANCER SCREENINGon 0 08-04-2022 CT [...] ÁNGEL PUGH Date: 2022-08-04 14:41 Normal [facility] XR RIBS BIL_PA CH 4V OR [...] ÁNGEL PUGH Date: 2022-08-04 14:45 Normal [facility] XR TSPINE MIN 4 VIEWSon XR [...] by: ÁNGEL PUGH Date: 2022-08-04 14:42 Normal [facility] Desean 07-29-2022 L Specimen: [id number] Received: 07/29/22 Status: HUY Malonewinifred Num: [id number] Spec Type: Surgical Subm Dr: Enrrique Grant MD Tissues: A Colon Biopsy (POLYP SIGMOID) Procedures: HE/2, Gross/Micro L4 Age/ Patient Sex Location Account Attending Physician Marly Jaffe 67/F [id number] Enrrique Grant MD SPEC NUM: [id number] RECD: 07/29/22 STATUS: HUY DINAH NUM: [id number] SALOMON: 07/29/22- [facility] DR: Enrrique Grant MD ENTERED: 07/29/22 [...] support the above pathologic diagnosis. CPT Codes 20219 Specimen: [id number] Received: 07/29/22 Status: HUY Malonewinifred Num: [id number] Spec Type: Surgical Subm Dr: Enrrique Grant MD Tissues: A Colon Biopsy (POLYP SIGMOID) Procedures: HE/Deborah, Gross/Micro L4 Patient: Marly Jaffe [id number] (Continued) Signed (signature on file) Benjamin Wolf MD 07/30/22 1133 [facility] ECHOCARDIO M/2D COMPLETEon 0 07-13-2022 ECHOCARDIO M/2D COMPLETE Patient: MARLY JAFFE Exam Date: 07/13/2022 : 1955 Gender:F Ordering : KIERAN PETERSEN Admission #: [id number] Family : Order #: [id number] CLICK HERE TO VIEW EXAM ECHOCARDIOGRAM REPORT [...] Mak M.D. on 07/15/2022 at 10:33 Normal [facility] MG MAMM SCREEN 3D LAWRENCE CADon 06-23-2022 MG MAMM SCREEN 3D LAWRENCE CAD Patient: MARLY JAFFE Exam Date: 06/23/2022 : 1955 Gender:F Ordering : DR MERCY MORGAN . Admission #: [id number] Family : Order #: [id number] CLICK HERE TO VIEW EXAM RADIOLOGY REPORT [...] colon cancer at age 51. LOCATION: [facility] BREAST COMPOSITION: Scattered areas fibroglandular [...] Pugh M.D. on 06/23/2022 at 14:39 Normal [facility] PAP ACOG PANEL 2: 30 to 65on 06-23-2022 . . Normal [facility] Comment on above: Performed By: #### [id number] #### [facility] [address] [address] [address] Jeramy Dumont Age Gdln ACOG Testing Comment Normal [facility] Comment on above: Result Comment: <21 or >65 or no age provided Performed By: #### [id number] #### [facility] [address] [address] [address] Jeramy Dumont DIAGNOSIS: Comment Normal [facility] Comment on above: Result Comment: NEGA TIVE FOR INTRAEPITHELIAL LESION OR MALIGNANCY. REACTIVE CELLULAR CHANGES AND/OR REPAIR ARE PRESENT. Performed By: #### 4 [id number] #### [facility] [address] [place] [address] Dr. Jeramy Dumont Electronically signed by: Comment Normal [facility] Comment on above: Result Comment: Bere Aguilar MD, Pathologist Performed By: #### 4 [id number] #### [facility] [address] [place] [address] Dr. Jeramy Dumont Methodology: Comment [facility] Comment on above: Result Comment: This liquid based ThinPrep(R) pap test was screened with the use of an image guided system. Performed By: #### 4 [id number] #### [facility] [address] [place] [address] Dr. Jeramy Dumont Note: Comment Normal [facility] Comment on above: Result Comment: The Pap smear is a screening test designed to aid in the detection of premalignant and malignant conditions of the uterine cervix. It is not a diagnostic procedure and should not be used as the sole means of detecting cervical cancer. Both false-positive and false-negative reports do occur. . Performed By: #### 4 [id number] #### [facility] [address] [place] [address] Dr. Jeramy Dumont Performed by: Comment Normal [facility] Comment on above: Result Comment: Norma Mancia Front Desk Agent (ASCP) Performed By: #### 4 [id number] #### [facility] [address] [place] [address] Dr. Jeramy Dumont Specimen adequacy: Comment Normal [facility] Comment on above: Result Comment: Sati sfactory for evaluation. Endocervical and/or squamous metaplastic cells (endocervical component) are present. Performed By: #### 4 [id number] #### [facility] [address] [place] [address] Dr. Jeramy Dumont XR DEXA BONE DENSITYon [...] by: ÁNGEL PUGH Date: 2022-06-23 11:46 Normal [facility] CBC AUTO DIFFon 04-27-2022 BASO # 0.1 103/ul Normal 0.0-0.1 [facility] Comment on above: Performed By: #### C BC ####[facility] [address] [address]DrTeddy Dumont Basophils/100 WBC (Bld) 0.6 % Normal 0.2-2.[address] [facility] Comment on above: Performed By: #### C BC ####[facility] [address] [address]DrTeddy Dumont EO # 0.2 103/ul Normal 0.0-0.7 [facility] Comment on above: Performed By: #### C BC ####[facility] [address] [address]DrTeddy Dumont Eosinophils/100 WBC (Bld) 1.9 % Normal 0.9-7.0 [facility] Comment on above: Performed By: #### C BC ####[facility] [address] [id number] Dumont Erythrocyte distribution width (RBC) [Ratio] 13.3 % Normal 11.0-15.0 [facility] Comment on above: Performed By: #### C BC ####[facility] [address] [address]DrTeddy Dumont Hematocrit (Bld) [Volume fraction] 41.1 % Normal 36.0-48.0 [facility] Comment on above: Performed By: #### C BC ####[facility] [address] [address]Dr. Jeramy Dumont Hemoglobin (Bld) [Mass/Vol] 13.4 g/dL Normal 12.0-16.0 [facility] Comment on above: Performed By: #### C BC ####[facility] [address] [address]Dr. Jeramy Dumont IG # 0.02 10e3/ul Normal 0.00-0.03 [facility] Comment on above: Performed By: #### C BC ####[facility] [address] [place], [place] [address]Dr. Jeramy Dumont IG % 0.2 % Normal 0.0-0.5 [facility] Comment on above: Performed By: #### C BC ####[facility] [address] [place], [place] [address]Dr. Jeramy Dumont LYMPH # 3.2 103/ul Normal 1.2-3.8 [facility] Comment on above: Performed By: #### C BC ####[facility] [address] [place], [place] [address]Dr. Jeramy Dumont Lymphocytes/100 WBC (Bld) 39.1 % Normal 20.5-60.0 [facility] Comment on above: Performed By: #### C BC ####[facility] [address] [place], [place] [address]Dr. Jeramy Dumont MANUAL DIFF REQ NO Normal [facility] Comment on above: Performed By: #### C BC ####[facility] [address] [place], [place] [address]Dr. Jeramy Dumont MCH (RBC) [Entitic mass] 30.7 pg Normal 26.7-34.0 [facility] Comment on above: Performed By: #### C BC ####[facility] [address] [place], [place] [address]Dr. Jeramy Dumont MCHC (RBC) [Mass/Vol] 32.6 g/dL Normal 29.9-35.2 [facility] Comment on above: Performed By: #### C BC ####[facility] [address] [id number]. Jeramy Dumont MCV (RBC) [Entitic vol] 94.3 fL Normal 81.0-99.[address] [facility] Comment on above: Performed By: #### C BC ####[facility] [address] [address]Dr. Jeramy Dumont MONO # 0.6 103/ul Normal 0.3-0.8 [facility] Comment on above: Performed By: #### C BC ####[facility] [address] [place], [place] [address]Dr. Jeramy Tim Monocytes/100 WBC (Bld) 6.6 % Normal 1.7-12.[address] [facility] Comment on above: Performed By: #### C BC ####[facility] [address] [place], [place] [address]Dr. Jeramy Dumont NEUT # 4.3 103/ul Normal 1.4-6.5 [facility] Comment on above: Performed By: #### C BC ####[facility] [address] [place], [place] [address]Dr. Jeramy Tim Neutrophils/100 WBC (Bld) 51.6 % Normal 43.0-75.0 [facility] Comment on above: Performed By: #### C BC ####[facility] [address] [place], [place] [address]Dr. Jeramy Tim Platelet mean volume (Bld) [Entitic vol] 9.8 fL Normal 9.5-13.5 [facility] Comment on above: Performed By: #### C BC ####[facility] [address] [place], [place] [address]Dr. Jeramy Tim PLT 283 103/ul Normal 150-450 [facility] Comment on above: Performed By: #### C BC ####[facility] [address] [address]Dr. Jeramy Dumont RBC 4.36 106/ul Normal 4.20-5.40 [facility] Comment on above: Performed By: #### C BC ####[facility] [address] [address]Dr. Jeramy Dumont WBC 8.3 103/ul Normal 4.0-11.0 [facility] Comment on above: Performed By: #### C BC ####[facility] [address] [address]Dr. Jeramy Dumont FREE T3on 04-27-2022 FREE T3 2.20 pg/mlL Normal 2.18-3.98 [facility] Comment on above: Performed By: #### F T3, TSH, BMP, LIVER ####[facility] [address] [address]Dr. Jeramy Dumont FREE T4on 04-27-2022 Free T4 [Mass/Vol] 0.96 ng/dL Normal 0.76-1.46 [facility] Comment on above: Performed By: #### F T4 ####[facility] [address] [address]Dr. Jeramy Dumont LIVER PROFILEon 04-27-2022 Albumin [Mass/Vol] 3.7 g/dL Normal 3.4-5.0 [facility] Comment on above: Performed By: #### F T3, TSH, BMP, LIVER #### [facility] [address] [address] [address] Jeramy Dumont Albumin/Globulin [Mass ratio] 1.1 {ratio} Normal [facility] Comment on above: Performed By: #### F T3, TSH, BMP, LIVER #### [facility] [address] [address] [address] Jeramy Dumont ALP [Catalytic activity/Vol] 64 U/L Normal 46-116 [facility] Comment on above: Performed By: #### F T3, TSH, BMP, LIVER #### [facility] [address] [address] [address] Jeramy Dumont ALT [Catalytic activity/Vol] 28 U/L Normal 14-59 [facility] Comment on above: Performed By: #### F T3, TSH, BMP, LIVER #### [facility] [address] [place] [address] Dr. Jeramy Dumont AST [Catalytic activity/Vol] 16 U/L Normal 15-37 [facility] Comment on above: Performed By: #### F T3, TSH, BMP, LIVER #### [facility] [address] [place] [address] Dr. Jeramy Dumont BILI, CONJUGATED 0.1 mg/dL Normal 0.0-0.2 [facility] Comment on above: Performed By: #### F T3, TSH, BMP, LIVER #### [facility] [address] [place] [address] Dr. Jeramy Dumont Bilirubin [Mass/Vol] 0.2 mg/dL Normal 0.2-1.0 [facility] Comment on above: Performed By: #### F T3, TSH, BMP, LIVER #### [facility] [address] [place] [address] Dr. Jeramy Dumont Globulin (S) [Mass/Vol] 3.5 g/dL Normal [facility] Comment on above: Performed By: #### F T3, TSH, BMP, LIVER #### [facility] [address] [place] [address] Dr. Jeramy Dumont Protein [Mass/Vol] 7.2 g/dL Normal 6.4-8.2 [facility] Comment on above: Performed By: #### F T3, TSH, BMP, LIVER #### [facility] [address] [place] [address] Dr. Jeramy Dumont PROF CHEM 8 (BAS METB)on Anion gap [Moles/Vol] 10.3 mmol/L Normal [facility] Comment on above: Performed By: #### F T3, TSH, BMP, LIVER #### [facility] [address] [place] [address] Dr. Jeramy Dumont Calcium [Mass/Vol] 9.0 mg/dL Normal 8.5-10.1 [facility] Comment on above: Performed By: #### F T3, TSH, BMP, LIVER #### [facility] [address] [place] [address] Dr. Jeramy Dumont Chloride [Moles/Vol] 105 mmol/L Normal 98-107 [facility] Comment on above: Performed By: #### F T3, TSH, BMP, LIVER #### [facility] [address] [address] [address] Jeramy Dumont CO2 [Moles/Vol] 30.7 mmol/L Normal 21.0-32.0 [facility] Comment on above: Performed By: #### F T3, TSH, BMP, LIVER #### [facility] [address] [address] [address] Jeramy Dumont Creatinine [Mass/Vol] 0.85 mg/dL Normal 0.55-1.02 [facility] Comment on above: Performed By: #### F T3, TSH, BMP, LIVER #### [facility] [address] [address] [address] Jeramy Dumont EGFR-AF MONEGASQUE >60 Normal >=60 [facility] Comment on above: Performed By: #### F T3, TSH, BMP, LIVER #### [facility] [address] [address] [address] Jeramy Dumont EGFR-NON AF MONEGASQUE >60 Normal >=60 [facility] Comment on above: Performed By: #### F T3, TSH, BMP, LIVER #### [facility] [address] [address] [address] Jeramy Dumont Glucose [Mass/Vol] 101 mg/dL Normal 74-106 [facility] Comment on above: Performed By: #### F T3, TSH, BMP, LIVER #### [facility] [address] [place] [address] Dr[address] Jeramy Dumont Potassium [Moles/Vol] 4.0 mmol/L Normal 3.5-5.1 [facility] Comment on above: Performed By: #### F T3, TSH, BMP, LIVER #### [facility] [address] [place] [address] [address] Jeramy Dumont Sodium [Moles/Vol] 142 mmol/L Normal 136-145 [facility] Comment on above: Performed By: #### F T3, TSH, BMP, LIVER #### [facility] [address], [place] [address] Dr. Jeramy Dumont Urea nitrogen [Mass/Vol] 15.0 mg/dL Normal 7.0-18.0 [facility] Comment on above: Performed By: #### F T3, TSH, BMP, LIVER #### [facility] [address], [place] [address] Dr. Jeramy Dumont Urea nitrogen/Creatinine [Mass ratio] 17.6 mg/mg Normal [facility] Comment on above: Performed By: #### F T3, TSH, BMP, LIVER #### [facility] [address], [place] [address] Dr. Jeramy Dumont TSHon 04-27-2022 TSH 0.960 uIU/mL Normal 0.358-3.740 [facility] Comment on above: Performed By: #### F T3, TSH, BMP, LIVER ####[facility] [address] [place], [place] [address]HaDr. Jeramy Dumont Covid-19 PCR (CVDTBH)on 10-03 SARS-CoV-2 (COVID-19) RNA TRAVON+probe Ql (Unsp spec) Not detected Normal NOT DETECTED [facility] Comment on above: Result Comment: This test is not yet approved or cleared by the [place] FDA. When there are no FDA-approved or cleared tests available, and other criteria are met, FDA can make tests available under an emergency access mechanism called an Emergency Use Authorization (EUA). The EUA for this test is supported by the [place] of Health and Human Service's (HHS's) declaration [...] with SARS-CoV-2. Performed By: #### C VDTBH ####[facility] [address] [place], [place] [address]UlTeddy Dumont Established Visit (Gastroent erology)on 04-30-2020 Established Visit (Gastroenterology) Diagnoses/Problems Assessed Chronic idiopathic constipation (564.00) (K59.04) Esophageal reflux (530.81) (K21.9) Orders Chronic idiopathic constipation Start: Amitiza 8 MCG Oral Capsule; Take 1 capsule twice daily Rx By: Krzysztof Larkin; Dispense: 0 Days ; #:60 Capsule; Refill: 1;For: Chronic idiopathic constipation; ASHLYN = N; Verified Transmission to [facility]; Last Updated By: LoraxAg; 04/30/2020 1:37:03 PM Esophageal reflux Renew: Omeprazole 20 MG Oral Capsule Delayed Release; TAKE 1 CAPSULE DAILY Rx By: Krzysztof Larkin; Dispense: 0 Days ; #:90 Capsule; Refill: 1;For: Esophageal reflux; ASHLYN = N; Verified Transmission to [facility]; Last Updated By: LoraxAg; 04/30/2020 1:37:11 PM Patient Discussion/Summary Change omeprazole [...] Daily Oral Tablet Vitals Vital Signs Recorded: [id number] 01:17PM Imtqjumifga07 F Height5 ft 3 in Zqynnu918 lb BMI Tuhwcqnpik77.74 BSA Calculated1.63 Physical Exam Constitutional General appearance: [...] Normal Touchworks MRI BRAIN WO/W IVCONon 02-13 [facility] C-Reactive Proteinon 019 CRP mass conc mg/L Normal 0.0-0.4 [facility] Comment on above: Performed By: #### C BCDIF, CRP #### [address] [place] [address] #### WSR #### [facility] [address] [place] [phone] CBC and Differentialon 10-31 Abs Baso 0.05 k/uL Normal <0.11 [facility] Comment on above: Performed By: #### C BCDIF, CRP #### [address] [place] [address] #### WSR #### [facility] [address] [place] [phone] Abs [place] 0.49 k/uL Normal <0.87 [facility] Comment on above: Performed By: #### C BCDIF, CRP #### [address] [place] [address] #### WSR #### [facility] [address] [place] [phone] Abs Neut 6.28 k/uL Normal 1.45-7.50 [facility] Comment on above: Performed By: #### C BCDIF, CRP #### [address] [place] [address] #### WSR #### [facility] [address] [place] [address] Absolute nRBC <0.01 Normal <0.01 [facility] Comment on above: Performed By: #### C BCDIF, CRP #### [facility] [address] [facility] [place] [address] #### WSR #### [facility] [address] [place] [address] Basophils/100 WBC (Bld) 0.6 % Normal [facility] Comment on above: Performed By: #### C BCDIF, CRP #### [address] [place] [address] #### WSR #### [place] [phone] DTYPE Auto Diff [facility] Comment on above: Performed By: #### C BCDIF, CRP #### [address] [place] [address] #### WSR #### [place] [phone] Eosinophils #/vol (Bld) 0.08 10*3/uL Normal <0.46 [facility] Comment on above: Performed By: #### C BCDIF, CRP #### [address] [place]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 supplements/alternative remedies. 2. [...] treatment options with their primary care provider.[facility] [id number] Evaluation note * Encounter Date Diagnosis Assessment Notes Treatment Notes Treatment Clinical Notes Sep, Constipation (ICD-10 - K59.00) Sep, Diverticulosis (ICD-10 - K57.90) Sep, Hemorrhoids (ICD-10 - K64.9) Sep, Other Repeat colonoscopy in 5 yrs [employer] Other 01-26-2023 Procedure [facility]12-14-2022 NotePatient Outreach (INTMMN) MARLY JAFFE ([id number]) 1955 F Date Time Provider Department 06/16/22 [...] 09/07/2005 Date Reviewed: 10/20/2020 Reviewed by: Jojo (Rylee) Lupillo - Fully Assessed Visit Diagnosis:Encounter for screening mammogram for breast cancer [Z12.31] Order(s):[facility] [place] [[id number]] Order #: [id number] FUTURE Prescriptions as of 06/21/2022 - omeprazole [...] at bedtime as needed. - MV with Tgw-Zgeajdxp-Igvpyb (CENTRUM SILVER) 0.4-300-250 mg-mcg-mcg tab Take 1 [...] (DM) [Z83.3] Postmenopausal atrophic vaginitis [N95.2] Dyspareunia [GZZ9106] 11/04/2017 Tobacco user [Z72.0] 05/03/2013 Symptomatic menopausal or female climacteric st* Screening breast examination [Z12.39] 03/30/2011 08/02/2011 Constipation [K59.00] Abnormal mammogram [R92.8] 08/02/2011 11/04/2017 Elevated BP [SJO5895] 08/02/2011 Chest pain [R07.9] 09/17/2011 05/03/2013 Tobacco dependency [F17.200] 09/17/2011 Family history of early CAD [Z82.49] 09/17/2011 Syncope [R55] 09/17/2011 Postmenopausal HRT (hormone replacement therapy*06/05/2012 Screening breast examination [Z12.39] 06/05/2012 05/03/2013 Elevated IOP [H40.059] 05/03/2013 Multiple thyroid nodules [E04.2] 05/03/2013 Family history of colon cancer [Z80.0] 03/28/2017 Smoker [F17.200] 05/03/2017 Bilateral wrist pain [M25.531, M25.532] 07/14/2017 Encounter Status:Closed by FOUZIA COLLADO on 06/21/22[facility] 05-07-2022 Miscellaneous Notes* Telephone Encounter - Judy Patel MA - 05/07/2022 7:21 AM EDT Pharmacy escribed requesting the following refill. Requested Prescriptions Pending Prescriptions Disp Refills omeprazole (PRILOSEC) 20 mg capsule [Pharmacy Med Name: OMEPRAZOLE DR 20 MG CAPSULE] 90 capsule 1 Sig: TAKE 1 CAPSULE BY MOUTH EVERY DAY Patient last appointment: 08/13/2020 Patient Phone numbers: [phone] (home) Request is for script(s) to be escript to pharmacy. Judy Patel MA [facility] NoteCONSULTATION CONSULTATION DATE: 02/10/2022 This [...] changes in the weather. 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 She denies any [...] time and the patient is in agreement.[facility] [id number] NoteCONSULTATION CONSULTATION DATE: 11/26/2021 HISTORY OF PRESENT [...] Patient agrees with the plan of care. [facility] Signed and Approved by: SWEETIE ROBERTS . 12/03/2021 16:05:00[facility]08-13-2020 History of Present illness Narrative* Gail Ferrari), [...] 2020 TIME: 9:41 AM documented in [facility] History of Past illness Narrative* Problem Noted Date Resolved Date Screening breast examination 06/05/2012 Chest pain 09/17/2011 05/03/2013 Abnormal mammogram 08/02/2011 11/04/2017 Screening breast examination 03/30/2011 Colon cancer screening 03/03/2009 2 Degeneration of lumbar or lumbosacral interverte bral disc 01/24/2009 10/22/2013 Dyspareunia 11/04/2017 Tobacco user 05/03/2013 documented as of this encounter (statuses as of 02/01/2022) [facility]12-03-2012 History of Past illness Narrative* Problem Noted Date Resolved Date Screening breast examination 06/05/2012 Chest pain 09/17/2011 05/03/2013 Abnormal mammogram 08/02/2011 11/04/2017 Screening breast examination 03/30/2011 Colon cancer screening 03/03/2009 2 Degeneration of lumbar or lumbosacral interverte bral disc 01/24/2009 10/22/2013 Dyspareunia 11/04/2017 Tobacco user 05/03/2013 documented as of this encounter (statuses as of 05/07/2022) [facility]12-03-2012 History of Past illness Narrative* Problem Noted Date Resolved Date Screening breast examination 06/05/2012 Chest pain 09/17/2011 05/03/2013 Abnormal mammogram 08/02/2011 11/04/2017 Screening breast examination 03/30/2011 Colon cancer screening 03/03/2009 2 Degeneration of lumbar or lumbosacral interverte bral disc 01/24/2009 10/22/2013 Dyspareunia 11/04/2017 Tobacco user 05/03/2013 documented as of this encounter (statuses as of 06/21/2022) [facility]12-03-[facility] History of Past illness Narrative* Problem Noted Date Diagnosed Date Resolved Date Screening breast examination 06/05/2012 05/03/2013 Chest pain 09/17/2011 05/03/2013 Abnormal mammogram 08/02/2011 8 Screening breast examination 03/30/2011 08/02/2011 Colon cancer screening 03/03/200908/02 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 01/24/2009 10/22/2013 Dyspareunia 11/04/2017 Tobacco user 05/03/2013 documented as of this encounter (statuses as of 05/08/2023) [facility] + Plan note No data available for this section [facility]* Diagnosis Encounter for screening mammogram for breast cancer documented in this encounter [facility] note* Diagnosis Onset Date Resolution Status Encounter for screening colonoscopy [facility] Work Phone: Evaluation note* Diagnosis Chronic mixed headache syndrome Other headache syndromes documented in this encounter [facility] noteNo [facility] [employer] Other Hospital Discharge instructions Additional Instructions DISCHARGE [...] NOT operate machinery such as power tools, [employer] mowers, snow blowers, sewing machines, etc. -Avoid [...] kiwi fruit Repeat colonoscopy in 5 years [employer] 1 p.o. every morning -Notify the doctor if you have any problems. -Office number [phone] Work Phone: Hospital Discharge instructions No data available for this section [facility] CenterInstructions* Name Dates Details Instructions not documented [facility] Work Phone: Progress note No data available for this section [facility] for referral (narrative)* Diagnostic Procedure Only (Routine) - Pending Review Specialty Diagnoses / Procedures Referred By Zaid gutiérrez Referred To Contact [facility] Diagnoses Encounter for screening mammogram for breast cancer Procedures DOLORES SCREENING SCREENING MAMMOGRAPHY BI 2-VIEW BREAST [place] Jyoti García [place] [address] [place] [address] [facility] [address] [place] [address] Referral ID Status Reason Start Date Expiration Date Visits Requested Visits Authorized [id number] Pending Review Auto-Generat ed Referral 2 07/16/2023 1 1 [facility] for referral (narrative)* Diagnostic Procedure Only (Routine) - Closed Specialty Diagnoses / Procedures Referred By Zaid gutiérrez Referred To Contact [facility] Diagnoses Chronic mixed headache syndrome G44.89 (ICD-10-CM) - Chronic mixed headache syndrome Procedures MRI BRAIN WO/W IVCON MRI BRAIN COMBO MRI BRAIN WO/[place] Jyoti García [place] [address] [place] [address] [place] [address] Referral ID Status Reason Start Date Expiration Date V isits Requested Visits Authorized [id number] Closed Auto-Generate d Referral 02/11/2020 07/03/2020 1 1 T [facility] Summary Purpose Family History No Family History Records Found Relationship Condition Age at Onset Recorded Date/T bishop brother Malignant neoplasm of colon Unknown sister Malignant neoplasm of bone Unknown sister Malignant neoplasm of pancreas Unknown Advance Directives No Advanced Directives Records FoundDocuments on File Type Date Recorded 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 Advance Directive(s) 10/31/2018 9:16 AM Advance Directive(s) 12/04/2012 9:42 PM Advance Directive(s) 11/29/2012 9:09 PM Documents on File Type Date Recorded 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 Advance Directive(s) 12/04/2012 9:42 PM Advance Directive(s) 11/29/2012 9:09 PM Documents on File Type Date Recorded 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 Advance Directive(s) 12/04/2012 9:42 [...] Diagnosis 1 Post-nasal drainage (R09.82) Referral Organization [facility] Referring Provider First Name Sharonda Referring Provider Last Name Michele Referring Provider Specialty Family [facility] cine Referred Organization [facility] Referred Provider Shaan Villalta Referred Address ,[place], [place],[address] Referred Provider Specialty Ear, Nose an d Throat Referral Priority Routine General Notes Iam Inessa 02:51:01 PM >received today, notes locked, ins attached, referral faxed Additional Source Comments INFORMATION SOURCE (unrecogn ized section and content) DATE CREATED AUTHOR 11/12/2018 [facility] DATE CREATED AUTHOR AUTHOR'S ORGANIZ ATION 06/18/2019 [facility] DATE CREATED AUTHOR AUTHOR'S ORGANIZ ATION 05/01/2020 [employer] DATE CREATED AUTHOR AUTHOR'S ORGANIZ ATION 08/01/2022 [facility] DATE CREATED AUTHOR AUTHOR'S ORGANIZ ATION 10/26/2022 [facility] DATE CREATED AUTHOR AUTHOR'S ORGANIZ ATION 05/30/2023 [facility] DATE CREATED AUTHOR AUTHOR'S ORGANIZ ATION 07/07/2023 [facility] DATE CREATED AUTHOR AUTHOR'S ORGANIZ ATION 08/20/2023 [facility] DATE CREATED AUTHOR AUTHOR'S ORGANIZ ATION 09/06/2023 [facility] DATE CREATED AUTHOR AUTHOR'S ORGANIZ ATION 04/07/2024 [facility] Source Comments (unrecognize d section and content) In the event this informatio n is protected by the Federal Confidentiality of Alcohol and Drug Abuse Patient Records regulations: The Federal rules restrict any use of the information to criminally investigate or prosecute any alcohol or drug abuse patient.[facility] CenterIn the event this information is protected by the Federal Confidentiality of Alcohol and Drug Abuse Patient Records regulations: The Federal rules restrict any use of the information to criminally investigate or prosecute any alcohol or drug abuse patient.[facility] CenterIn the event this information is protected by the Federal Confidentiality of Alcohol and Drug Abuse Patient Records regulations: The Federal rules restrict any use of the information to criminally investigate or prosecute any alcohol or drug abuse patient.[facility] CenterIn the event this information is protected by the Federal Confidentiality of Alcohol and Drug Abuse Patient Records regulations: The Federal rules restrict any use of the information to criminally investigate or prosecute any alcohol or drug abuse patient.[facility] Reason for Visit (unrecogniz ed section and content) Reason Comments Refill Request Reason Comments Radiology MRI Specialty Diagnoses / Procedures Referred By Contac t Referred To Contact MR IMAGING Diagnoses Chronic mixed headache syndrome G44.89 (ICD-10-CM) - Chronic mixed headache syndrome Procedures MRI BRAIN WO/W IVCON MRI BRAIN COMBO MRI BRAIN WO/W IVCON Jyoti García [place] [address] [place] [address] [place] [address] Referral ID Status Reason Start Date Expiration Date V isits Requested Visits Authorized [id number] Closed Auto-Generate d Referral 02/11/2020 07/03/2020 1 1 Care Teams (unrecognized sec tion and content) 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 Relationship Specialty Start Date End Date Jyoti García [place] [address] [place] [address] PCP - General Internal Medicine 09/11/19 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 Relationship Specialty Start Date End Date Jyoti García [place] [address] [place] [address] PCP - General Internal Medicine 09/11/19 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 Relationship Specialty Start Date End Date Jyoti García [place] [address] [place] [address] PCP - General Internal Medicine 09/11/19 Team Status: Inactive Member Role Status Dates Enrrique Grant MD Attending Provider Active Jameel Manzanares MD Primary Care Provider Active Team Status: Active Member Role Status Dates Jameel Manzanares MD Primary Care Provider Active 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 Relationship Specialty Start Date [place] Jy[place]ía [place] [address] [place] [address] PCP - General Internal Medicine 09/11/19 FOR [...] BE BASED ON THE PRIMARY CLINICAL RECORDS. [facility]. provides no warranty or guarantee of the accuracy or completeness of information in this document.
[2024-04-16 07:49] VITALS: BP 127/89; PULSE 72; TEMP 36.4; O2SAT 98
[2024-04-16] MEDS: 0.9 % SODIUM CHLORIDE 500 ML IV (07:55)
[2024-04-16] MEDS: LIDOCAINE HCL 2% 400 MG/20 ML MDV 16 ML INJ (08:39)
[2024-04-16] MEDS: TRIAMCINOLONE ACETONIDE 40 MG/ML VIAL 80 MG INJ (08:40)
[2024-04-16] MEDS: BUPIVACAINE HCL 0.25% PF 25 MG/10 ML VIAL 4 ML INJ (08:40)
--- NOTE | 2024-04-16 08:52 | P.ON_ITS ---
Date of procedure: 04/16/24 Pre-op diagnosis: Pain due to lumbar spondylosis without myelopathy Post-op diagnosis: same as pre-op Procedure: Procedure: Bilateral L4-5, L5-S1 radiofrequency ablation Medications: Bupivacaine 0.25% 6cc, lidocaine 2% 6cc, kenalog 80mg The patient was seen and examined in the preoperative holding area.? The site was marked.? Written informed consent was obtained and placed on the chart.? The patient was brought to the medical procedure unit and placed in the prone position.? A timeout was completed verifying correct patient, procedure, positioning, and special requirements.? The skin overlying the target points, the designated medial branch, were prepped and draped in the usual sterile fashion.? The target point was achieved with a 20-gauge 15 cm with a 10 mm curved active tip radiofrequency cannula under direct fluoroscopic visualization.? The needle was inserted at level L4 on the right side. Needle tip position was confirmed with lateral fluoroscopic position.? Motor stimulation was carried out at 2 Hz up to 5 volts with the absence of extremity activity.? This was repeated at level L5, S1 on right side.?? Sensory stimulation was carried out.? Concordant pain was realized at the above- mentioned sites.? Then radiofrequency lesioning was carried out times 90 seconds at 80 degrees times 2 lesions at each level.? The radiofrequency probe was removed prior to cannula removal.? The above-mentioned injectate was placed in 1 mL increments.? The needle was removed. The same procedure, with the same steps, was then completed on the left side at the same levels. Insertion sites were covered.? The patient was taken to the postoperative recovery area and monitored for an appropriate length of time before being found suitable for discharge in the company of a responsible adult. Anesthesia: MAC Surgeon: Jim Kemp Pathology: none sent Condition: stable Disposition: no change
[2024-04-16 08:55] VITALS: BP 105/73; PULSE 64; TEMP 36.7; O2SAT 96
[2024-04-16 09:03] VITALS: BP 115/83; PULSE 59; O2SAT 97
== END 2024-04-16 09:12 | disposition home or self-care (01) ==
LOC: SURGOUT 07:19
PROVIDERS: PCP Family Medicine; Visit Provider Anesthesiology
DX: M47.816 Spondylosis without myelopathy or radiculopathy, lumbar region (principal)
CPT/HCPCS: 64635; 64636; J0665; J1885; J2250; J2704; J3301

== ENCOUNTER 2024-05-02 08:49 | Outpatient (OUT) | payer MEDICARE, SELFPAY ==
--- NOTE | 2024-05-02 08:58 | P.CN_ITS ---
Consult Note: HPI Data of Consult Patient: known to practice within the last 3 years Requesting Physician: Janet Ramirez NP Primary Care Provider: Estelle Bautista MD Consult Narrative Reason for consult: f/u Narrative: Ann Marie Mccain a pleasant 68 year old female presents for evaluation and management of chronic low back pain. Patient has a longstanding history of chronic low back pain secondary for lumbar spondylosis, previous lumbar RFAs with Dr Lake provided >50% improvement greater than 6 months. Patient engaged in PT/aquatherapy ongoing without benefit, historically has failed to benefit from PT greater than 6 weeks. Patient utilizing advil and tylenol with mild benefit, no benefit from baclofen 5-10mg TID PRN heat or TENS at this time. Underwent bilateral L4/5 L5/S1 facet RFA on 04/16/24 and has had increased pain since. denies numbness tingling weakness, loss of bowel or bladder. cc:: CC: Janet Ramirez NP Review of Systems ROS Status of ROS 10 or more systems reviewed and unremark able except as noted in history and below Musculoskeletal Reports: back pain Meds Home Medications and Allergies Home Medications ?Medication ?Instructions ?Recorded ?Confirmed ?Type alendronate 35 mg tablet 35 mg PO .WEEKLY 06/30/23 04/16/24 History alprazolam 1 mg tablet 1 mg PO TID 06/30/23 04/16/24 History montelukast 10 mg tablet 10 mg PO BID 06/30/23 04/16/24 History omeprazole 20 mg capsule,delayed mg 06/30/23 History release travoprost 0.004 % eye drops drp ophthalmic (eye) 06/30/23 History ascorbic acid (vitamin C) 500 mg mg PO 02/08/24 History capsule aspirin 81 mg capsule 81 mg PO DAILY 02/08/24 04/16/24 History baclofen 10 mg tablet 10 mg PO TID PRN muscle spasm 02/08/24 04/16/24 History cholecalciferol (vitamin D3) 50 50 mcg PO DAILY 02/08/24 04/16/24 History mcg (2,000 unit) capsule collagen PO 02/08/24 History magnesium oxide 500 mg capsule 500 mg PO DAILY 02/08/24 04/16/24 History metoprolol tartrate 25 mg tablet 25 mg PO DAILY 02/08/24 04/16/24 History multivitamin 1 tab PO DAILY 02/08/24 04/16/24 History Allergies Allergy/AdvReac Type Severity Reaction Status Date / Time prochlorperazine (From Allergy Unknown Seizure Verified 04/16/24 07:58 Compazine) Sulfa (Sulfonamide Allergy Unknown Rash Verified 04/16/24 07:58 Antibiotics) Exam Constitutional Documenting provider has reviewed patient's vital signs: yes Common normals: no apparent distress, oriented x3, healthy appearing, alert and well nourished General appearance: cooperative HENMT Common normals: normocephalic, hearing grossly normal bilaterally and moist oral mucous membranes Head and scalp: normocephalic Eye Common normals: PERRL Pupil: PERRL Neck & C-Spine Common normals: full ROM General: normal visual inspection Chest Common normals: inspection of chest normal Respiratory Common normals: normal respiratory effort, no retractions and no use of accessory muscles Back & Pelvis Common normals: thoracic and lumbar spine normal to inspection Thoracic spine/upper back: pain with ROM and paraspinal muscle tenderness Lumbar spine/lower back: pain with ROM, paraspinal muscle tenderness and straight leg raise negative bilaterally Sacroiliac joints: SI joint(s) abnormal Other: significant myofascial pain and discomfort pain not increased with extension, worse with rotation strength 5/5 in BLE sensation intact BLE bilateral SIJ positive sayra(patricks), gaenslens, thigh thrust, compression test Extremity Common normals: normal to inspection and full ROM Neuro Common normals: oriented x3, CN's II-XII intact bilaterally, moves all extremities, no focal motor deficits, no sensory deficits noted, deep tendon reflexes 2+ bilaterally and gait normal Sensorium/orientation: alert Motor exam: strength 5/5 throughout and no movement abnormalities noted Psych Common normals: mental status grossly normal, thought process normal, cooperative, affect normal, speech normal and activity/motor behavior normal Speech: normal speech Thought process: normal thought process Results Additional Findings Additional findings: If on a controlled substance or opioids, I have checked an [place] report on this patient and there are no aberrancies noted in the prescribing history.??If on a controlled substance or opioid a drug screen was completed and reviewed within the last year, and if there has not been a drug screen completed we ordered one today to monitor higher risk, state monitored pain medication use. As part of providing excellent, safe, comprehensive care, the following was completed at our patient's visit: 1. A medication reconciliation and review to ensure accurate knowledge of current/active medications, including asking our patients to inform us about any [id number] medications or herbal remedies/nutritional supplements/alternative remedies. 2. A review to specifically ensure our patients have had annual screening for screening for depression, screening for tobacco use, and screening for unhealthy alcohol use. For concerning screenings had a discussion with the patient, provided patient education, and recommended follow-up with primary care provider when appropriate. If patient noted with a risk of falling, they received education on strength, gait, and balance training to prevent future risk of falling. Assessment and Plan Assessment and Plan (1) Lumbar spondylosis: (2) Chronic prescription benzodiazepine use: (3) Osteoarthritis: (4) Muscle spasm: (5) Thoracic spondylosis: Plan bilateral L4-5 L5-S1 facet medial branch thermal RFA causing increased pain, start medrol dose pack dc baclofen start cyclobenzaprine 5-10mg TID PRN pain/spasms NNCP due to benzo use continue tylenol and NSAID use PRN continue PT/aquatherapy f/u 2 weeks
--- OUTSIDE RECORDS SUMMARY | 2024-05-02 09:07 | XMS_ITS | CCD ---
Author Organization [facility] [employer]ini[employer] Care Team Providers Care Media Services Director Name Role Phone ERWIN DYE Attending Unavailable Abbass, Rami Unavailable Unavailable Unknown, Referring Provider Unavailable Unav ailable Abbass, Rami Unavailable Unavailable Chaya PAUL, Rami Unavailable Unavailable Unknown, Referring Provider Unavailable Unav ailable Raquel PAUL, Jyoti Lugo Primary Care Provider [phone] Raquel PAUL, Jyoti Lugo Primary Care Provider Raquel PAUL, Jyoti Lugo Primary Care Provider MD Enrrique Grant Attending Provider [phone] MD Jameel Manzanares Primary Care Provider Enrrique [...] WAYNE, DR FITZGERALD Attending Unavailable WAYNE, DR IFTZGERALD Admitting Unavailable Sharonda Calix Unavailable TIMMIS, SHAAN [...] Facility Prochlorperazine (1 source) Prochlorperazine Drug Allergy [facility] [employer] Work Phone: Sulfonamides (antibiotic) (1 source) Sulfonamides (Antibiotic) [facility] (5 sources) Hydroxychloroquine; 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: [HYDROXYCHLOROQUINE SULFATE] Drug Allergy 006 Rash [facility] Repository (8 sources) Sulfonamides (Antibiotic); 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: [SULFA (SULFONAMIDE ANTIBIOTICS)] Propensity to adverse reactions to drug (disorder) Unknown Reaction [facility] Repository (6 sources) AMOXICILLIN-POT CLAVULANATE; 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: [AMOXICILLIN-POT CLAVULANATE] Propensity to adverse reactions to drug (disorder) 019 Rash [facility] Repository (5 sources) PROCHLORPERAZINE EDISYLATE; 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: [PROCHLORPERAZINE EDISYLATE] Propensity to adverse reactions to drug (disorder) 006 [facility] Repository (4 sources) Sulfonamides (Antibiotic) drug allergy [facility] [employer] Work Phone: (1 source) drug allergy [facility] [employer] Work Phone: (13 sources) Prochlorperazine; 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: [Compazine] Drug Allergy Unknown [facility] Repository (6 sources) Prochlorperazine; 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: [PROCHLORPERAZINE] Drug Allergy 006 Other: See Comments [facility] (5 sources) traMADol; 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: [TRAMADOL] Drug Allergy 019 Intolerance, GI Upset [facility] (1 source) Prochlorperazine Drug Allergy 023 [facility] Repository (9 sources) Sulfacetamide / Sulfur Drug Allergy Unknown [employer] Other (1 source) Sulfonamides (Antibiotic) Drug allergy (disorder) [facility] Repository (1 source) Hydroxychloroquine; 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: [HYDROXYCHLOROQUINE ] Drug Allergy 006 [facility] Repository Medications Current Medications Medication Drug Class(es) Dates Sig (Normalized) Sig (Original) [id number] 60 actuat albuterol 0.09 mg/actuat metered dose [...] Start: 03-28-2017 take 1 capsule by [facility] once daily Cholecalciferol, Vitamin D3, 2,000 unit [...] sources) Start: 07-29-2022 take 1 tablet by [facility] Magnesium Active 1 TAB PO [...] TAB PO Daily July 29, 2022 12:00am [place] 3 (9 sources) [place] 3 Active [place]-3 Fatty Acids (1 source) Start : 07-29 take 1000 mg by mouth once daily [place]-3 Fatty Acids Active 1000 MG PO Daily [...] on above: TAKE 1 CAPSULE BY [facility] EVERY DAY travoprost (13 sources) Prostaglandin [...] Start: 07-07-2020 take 1 capsule by [facility] once daily coenzyme Q10 (CO Q-10) 100 [...] Comment on above: Take 1 tablet by [facility] twice daily as needed for Muscle Spasm. [...] capsule by [facility] daily at bedtime for 30 days. [...] on above: Take 1 capsule by [facility] as needed. lubiprostone 0.008 mg oral capsule [...] as needed. Take 1 capsule by [facility] once daily. MV with Qdi-Fcmtfjee-Pakctl (CENTRUM SILVER) 0.4-300-250 mg-mcg-mcg tab (1 source) Start: 07-07-19 21 take 1 tablet by mouth once daily MV with Fxg-Gehsjqyd-Upascl (CENTRUM SILVER) 0.4-300-250 mg-mcg-mcg tab Take 1 [...] on above: Take 1 capsule by [facility] daily at bedtime. 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 She verbalized understanding. Normal [facility] Office Visiton 02-28-2024 Follow-up visit [id number] Marly Jaffe 1955 F Date Provider Department Center 02/28/2024 KIERAN FRIEDMAN CHELSEY [facility] [place] Family History Problem Relation Age of Onset Stroke Mother Hypertension Mother Cancer Mother Stroke Father Other Father Family Status - Relation Status Age at Mother Father Level of Service:94464 [place] OFFICE/OUTPATIENT ESTABLISHED LOW MDM 20 MIN Normal [facility] Office Visiton 12-01-2023 Follow-up visit [id number] Marly Jaffe 1955 F Date Provider Department Center 12/01/2023 [id number] LIZMARCELL [place] Family History Problem Relation Age of Onset Stroke Mother Hypertension Mother Cancer Mother Stroke Father Other Father Family Status - Relation Status Age at Mother Father Level of Service:40158 [place] OFFICE/OUTPATIENT NEW LOW MDM 30 MINUTES Normal [facility] CT Maxillofacial w/o Contras ton 08-19-2023 [...] Gordillo MD Transcribed by: CHRISTIAN Technologist: MARTELL [facility] Consent for Treatmenton 08-04 Consent for Treatment [id number] #1.00TIFF [facility] Physician Orderon 07-08-2023 Physician Order [id number] #1.00TIFF [facility] Office Visiton 06-20-2023 Follow-up visit [id number] Marly Jaffe 1955 F Date Provider Department Center 06/20/2023 Abraham-JOSE VILLALOBOS CARD [facility] Family History Problem Relation Age of Onset Stroke Mother Hypertension Mother Cancer Mother Stroke Father Other Father Family Status - Relation Status Age at Mother Father Level of Service:22879 [place] OFFICE/OUTPATIENT ESTABLISHED MOD MDM 30 MIN [facility] HPon 05-19-2023 HP H&P reviewed. The patient was examined and there are no changes to the H&P. [facility] HP H&P reviewed. The patient was examined and there are no changes to the H&P. [facility] NURSNOTEon 05-19-[address] Petersen for pt to discharge at this time. [facility] NURSNOTE RN educated pt on d/c instructions. RN encouraged pt to voice any questions or concerns. Pt verbalizes no questions or concerns at this time. Pt was wheeled off of unit with all of belongings. [facility] HPon 04-26-2023 [facility] Cardiology Consult Note Reason for visit: [...] oriented to (more content not included)... Normal [facility] Office Visiton 04-26-2023 Follow-up visit [id number] Marly Jaffe Brittney 1955 F Date Provider Department Center 04/26/2023 Carli-KIERAN PETERSEN SUSANA [facility] [place] Family History Problem Relation Age of Onset Stroke Mother Hypertension Mother Cancer Mother Stroke Father Other Father Family Status - Relation Status Age at Mother Father Level of Service:79503 [place] OFFICE/OUTPATIENT ESTABLISHED HIGH MDM 40-54 MIN Normal [facility] CT LUNG CANCER SCREENINGon 0 08-04-2022 [...] ÁNGEL PUGH Date: 2022-08-04 14:41 Normal [facility] XR RIBS BIL_PA CH 4V [...] ÁNGEL PUGH Date: 2022-08-04 14:45 Normal [facility] XR TSPINE MIN 4 VIEWSon [...] by: ÁNGEL PUGH Date: 2022-08-04 14:42 Normal [facility] Desean 07-29-2022 L Specimen: [id number] Received: 07/29/22 Status: HUY Malonewinifred Num: [id number] Spec Type: Surgical Subm Dr: Enrrique Grant MD Tissues: A Colon Biopsy (POLYP SIGMOID) Procedures: HE/2, Gross/Micro L4 Age/ Patient Sex Location Account Attending Physician Marly Jaffe 67/F [id number] Enrrique Grant MD SPEC NUM: [id number] RECD: 07/29/22 STATUS: HUY DINAH NUM: [id number] SALOMON: 07/29/22- [facility] DR: Enrrique Grant MD ENTERED: [...] support the above pathologic diagnosis. CPT Codes 22047 Specimen: [id number] Received: 07/29/22 Status: HUY Malonewinifred Num: [id number] Spec Type: Surgical Subm Dr: Enrrique Grant MD Tissues: A Colon Biopsy (POLYP SIGMOID) Procedures: HE/Deborah, Gross/Micro L4 Patient: Marly Jaffe [id number] (Continued) Signed (signature on file) Benjamin Wolf MD 07/30/22 1133 [facility] ECHOCARDIO M/2D COMPLETEon 0 07-13-2022 ECHOCARDIO M/2D COMPLETE Patient: MARLY JAFFE Exam Date: 07/13/2022 : 1955 Gender:F Ordering : KIERAN PETERSEN Admission #: [id number] Family : Order #: [id number] CLICK HERE TO VIEW EXAM ECHOCARDIOGRAM REPORT [...] Mak M.D. on 07/15/2022 at 10:33 Normal [facility] MG MAMM SCREEN 3D LAWRENCE CADon 06-23-2022 MG MAMM SCREEN 3D LAWRENCE CAD Patient: MARLY JAFFE Exam Date: 06/23/2022 : 1955 Gender:F Ordering : DR MERCY MORGAN . Admission #: [id number] Family : Order #: [id number] CLICK HERE TO VIEW EXAM RADIOLOGY REPORT [...] colon cancer at age 51. LOCATION: [facility] BREAST COMPOSITION: Scattered areas fibroglandular density. [...] Pugh M.D. on 06/23/2022 at 14:39 Normal [facility] PAP ACOG PANEL 2: 30 to 65on 06-23-2022 . . Normal [facility] Comment on above: Performed By: #### 4 [id number] #### [facility] [address] [place] [address] [address] Jeramy Dumont Age Gdln ACOG Testing Comment Normal [facility] Comment on above: Result Comment: <21 or >65 or no age provided Performed By: #### 4 [id number] #### [facility] [address] [address] [address] Jeramy Dumont DIAGNOSIS: Comment Normal [facility] Comment on above: Result Comment: NEGA TIVE FOR INTRAEPITHELIAL LESION OR MALIGNANCY. REACTIVE CELLULAR CHANGES AND/OR REPAIR ARE PRESENT. Performed By: #### 4 [id number] #### [facility] [address] [place] [address] Dr. Jeramy Dumont Electronically signed by: Comment Normal [facility] Comment on above: Result Comment: Bere Aguilar MD, Pathologist Performed By: #### 4 [id number] #### [facility] [address] [place] [address] Dr. Jeramy Dumont Methodology: Comment [facility] Comment on above: Result Comment: This liquid based ThinPrep(R) pap test was screened with the use of an image guided system. Performed By: #### 4 [id number] #### [facility] [address] [place] [address] Dr. Jeramy Dumont Note: Comment Normal [facility] Comment on above: Result Comment: The Pap smear is a screening test designed to aid in the detection of premalignant and malignant conditions of the uterine cervix. It is not a diagnostic procedure and should not be used as the sole means of detecting cervical cancer. Both false-positive and false-negative reports do occur. . Performed By: #### 4 [id number] #### [facility] [address] [place] [address] Dr. Jeramy Dumont Performed by: Comment Normal [facility] Comment on above: Result Comment: Norma Mancia Global Director Air And Climate Change (ASCP) Performed By: #### 4 [id number] #### [facility] [address] [place] [address] Dr. Jeramy Dumont Specimen adequacy: Comment Normal [facility] Comment on above: Result Comment: Sati sfactory for evaluation. Endocervical and/or squamous metaplastic cells (endocervical component) are present. Performed By: #### 4 [id number] #### [facility] [address] [place] [address] Dr. Jeramy Dumont XR DEXA BONE DENSITYon [...] by: ÁNGEL PUGH Date: 2022-06-23 11:46 Normal [facility] CBC AUTO DIFFon 04-27-2022 BASO # 0.1 103/ul Normal 0.0-0.1 [facility] Comment on above: Performed By: #### C BC ####[facility] [address] [address]DrTeddy Dumont Basophils/100 WBC (Bld) 0.6 % Normal 0.2-2.[address] [facility] Comment on above: Performed By: #### C BC ####[facility] [address] [address]DrTeddy Dumont EO # 0.2 103/ul Normal 0.0-0.7 [facility] Comment on above: Performed By: #### C BC ####[facility] [address] [address]DrTeddy Dumont Eosinophils/100 WBC (Bld) 1.9 % Normal 0.9-7.0 [facility] Comment on above: Performed By: #### C BC ####[facility] [address] [address] [id number] Dumont Erythrocyte distribution width (RBC) [Ratio] 13.3 % Normal 11.0-15.0 [facility] Comment on above: Performed By: #### C BC ####[facility] [address] [address]DrTeddy Dumont Hematocrit (Bld) [Volume fraction] 41.1 % Normal 36.0-48.0 [facility] Comment on above: Performed By: #### C BC ####[facility] [address] [address]Dr. Jeramy Dumont Hemoglobin (Bld) [Mass/Vol] 13.4 g/dL Normal 12.0-16.0 [facility] Comment on above: Performed By: #### C BC ####[facility] [address] [place] [address]Dr. Jeramy Dumont IG # 0.02 10e3/ul Normal 0.00-0.03 [facility] Comment on above: Performed By: #### C BC ####[facility] [address] [place], [place] [address]Dr. Jeramy Dumont IG % 0.2 % Normal 0.0-0.5 [facility] Comment on above: Performed By: #### C BC ####[facility] [address] [place], [place] [address]Dr. Jeramy Dumont LYMPH # 3.2 103/ul Normal 1.2-3.8 [facility] Comment on above: Performed By: #### C BC ####[facility] [address] [place], [place] [address]Dr. Jeramy Dumont Lymphocytes/100 WBC (Bld) 39.1 % Normal 20.5-60.0 [facility] Comment on above: Performed By: #### C BC ####[facility] [address] [place], [place] [address]Dr. Jeramy Dumont MANUAL DIFF REQ NO Normal [facility] Comment on above: Performed By: #### C BC ####[facility] [address] [place], [place] [address]Dr. Jeramy Dumont MCH (RBC) [Entitic mass] 30.7 pg Normal 26.7-34.0 [facility] Comment on above: Performed By: #### C BC ####[facility] [address] [place], [place] [address]Dr. Jeramy Dumont MCHC (RBC) [Mass/Vol] 32.6 g/dL Normal 29.9-35.2 [facility] Comment on above: Performed By: #### C BC ####[facility] [address] [address] [id number]. Jeramy Dumont MCV (RBC) [Entitic vol] 94.3 fL Normal 81.0-99.[address] [facility] Comment on above: Performed By: #### C BC ####[facility] [address] [id number]. Jeramy Dumont MONO # 0.6 103/ul Normal 0.3-0.8 [facility] Comment on above: Performed By: #### C BC ####[facility] [address] [place], [place] [address]Dr. Jeramy Tim Monocytes/100 WBC (Bld) 6.6 % Normal 1.7-12.[address] [facility] Comment on above: Performed By: #### C BC ####[facility] [address] [place], [place] [address]Dr. Jeramy Dumont NEUT # 4.3 103/ul Normal 1.4-6.5 [facility] Comment on above: Performed By: #### C BC ####[facility] [address] [place], [place] [address]Dr. Jeramy Tim Neutrophils/100 WBC (Bld) 51.6 % Normal 43.0-75.0 [facility] Comment on above: Performed By: #### C BC ####[facility] [address] [place], [place] [address]Dr. Jeramy Tim Platelet mean volume (Bld) [Entitic vol] 9.8 fL Normal 9.5-13.5 [facility] Comment on above: Performed By: #### C BC ####[facility] [address] [place], [place] [address]Dr. Jeramy Tim PLT 283 103/ul Normal 150-450 [facility] Comment on above: Performed By: #### C BC ####[facility] [address] [id number]. Jeramy Dumont RBC 4.36 106/ul Normal 4.20-5.40 [facility] Comment on above: Performed By: #### C BC ####[facility] [address] [address]Dr. Jeramy Dumont WBC 8.3 103/ul Normal 4.0-11.0 [facility] Comment on above: Performed By: #### C BC ####[facility] [address] [address] [id number]. Jeramy Dumont FREE T3on 04-27-2022 FREE T3 2.20 pg/mlL Normal 2.18-3.98 [facility] Comment on above: Performed By: #### F T3, TSH, BMP, LIVER ####[facility] [address] [address]Dr. Jeramy Dumont FREE T4on 04-27-2022 Free T4 [Mass/Vol] 0.96 ng/dL Normal 0.76-1.46 [facility] Comment on above: Performed By: #### F T4 ####[facility] [address] [address]Dr. Jeramy Dumont LIVER PROFILEon 04-27-2022 Albumin [Mass/Vol] 3.7 g/dL Normal 3.4-5.0 [facility] Comment on above: Performed By: #### F T3, TSH, BMP, LIVER #### [facility] [address] [address] [address] Jeramy Dumont Albumin/Globulin [Mass ratio] 1.1 {ratio} Normal [facility] Comment on above: Performed By: #### F T3, TSH, BMP, LIVER #### [facility] [address] [address] [address] Jeramy Dumont ALP [Catalytic activity/Vol] 64 U/L Normal 46-116 [facility] Comment on above: Performed By: #### F T3, TSH, BMP, LIVER #### [facility] [address] [address] [address] Jeramy Dumont ALT [Catalytic activity/Vol] 28 U/L Normal 14-59 [facility] Comment on above: Performed By: #### F T3, TSH, BMP, LIVER #### [facility] [address] [place] [address] Dr. Jeramy Dumont AST [Catalytic activity/Vol] 16 U/L Normal 15-37 [facility] Comment on above: Performed By: #### F T3, TSH, BMP, LIVER #### [facility] [address] [place] [address] Dr. Jeramy Dumont BILI, CONJUGATED 0.1 mg/dL Normal 0.0-0.2 [facility] Comment on above: Performed By: #### F T3, TSH, BMP, LIVER #### [facility] [address] [place] [address] Dr. Jeramy Dumont Bilirubin [Mass/Vol] 0.2 mg/dL Normal 0.2-1.0 [facility] Comment on above: Performed By: #### F T3, TSH, BMP, LIVER #### [facility] [address] [place] [address] Dr. Jeramy Dumont Globulin (S) [Mass/Vol] 3.5 g/dL Normal T [facility] Comment on above: Performed By: #### F T3, TSH, BMP, LIVER #### [facility] [address] [place] [address] Dr. Jeramy Dumont Protein [Mass/Vol] 7.2 g/dL Normal 6.4-8.2 [facility] Comment on above: Performed By: #### F T3, TSH, BMP, LIVER #### [facility] [address] [place] [address] Dr. Jeramy Dumont PROF CHEM 8 (BAS METB)on Anion gap [Moles/Vol] 10.3 mmol/L Normal [facility] Comment on above: Performed By: #### F T3, TSH, BMP, LIVER #### [facility] [address] [place] [address] Dr. Jeramy Dumont Calcium [Mass/Vol] 9.0 mg/dL Normal 8.5-10.1 [facility] Comment on above: Performed By: #### F T3, TSH, BMP, LIVER #### [facility] [address] [place] [address] Dr. Jeramy Dumont Chloride [Moles/Vol] 105 mmol/L Normal 98-107 [facility] Comment on above: Performed By: #### F T3, TSH, BMP, LIVER #### [facility] [address] [address] [address] Jeramy Dumont CO2 [Moles/Vol] 30.7 mmol/L Normal 21.0-32.0 [facility] Comment on above: Performed By: #### F T3, TSH, BMP, LIVER #### [facility] [address] [address] [address] Jeramy Dumont Creatinine [Mass/Vol] 0.85 mg/dL Normal 0.55-1.02 [facility] Comment on above: Performed By: #### F T3, TSH, BMP, LIVER #### [facility] [address] [address] [address] Jeramy Dumont EGFR-AF EMIRATI >60 Normal >=60 [facility] Comment on above: Performed By: #### F T3, TSH, BMP, LIVER #### [facility] [address] [address] [address] Jeramy Dumont EGFR-NON AF EMIRATI >60 Normal >=60 [facility] Comment on above: Performed By: #### F T3, TSH, BMP, LIVER #### [facility] [address] [address] [address] Jeramy Dumont Glucose [Mass/Vol] 101 mg/dL Normal 74-106 [facility] Comment on above: Performed By: #### F T3, TSH, BMP, LIVER #### [facility] [address] [address] [address] Jeramy Dumont Potassium [Moles/Vol] 4.0 mmol/L Normal 3.5-5.1 [facility] Comment on above: Performed By: #### F T3, TSH, BMP, LIVER #### [facility] [address] [address] [address] Jeramy Dumont Sodium [Moles/Vol] 142 mmol/L Normal 136-145 [facility] Comment on above: Performed By: #### F T3, TSH, BMP, LIVER #### [facility] [address] [place], [place] [address] Dr. Jeramy Dumont Urea nitrogen [Mass/Vol] 15.0 mg/dL Normal 7.0-18.0 [facility] Comment on above: Performed By: #### F T3, TSH, BMP, LIVER #### [facility] [address] [place], [place] [address] Dr. Jeramy Dumont Urea nitrogen/Creatinine [Mass ratio] 17.6 mg/mg Normal [facility] Comment on above: Performed By: #### F T3, TSH, BMP, LIVER #### [facility] [address] [place], [place] [address] Dr. Jeramy Dumont TSHon 04-27-2022 TSH 0.960 uIU/mL Normal 0.358-3.740 [facility] Comment on above: Performed By: #### F T3, TSH, BMP, LIVER ####[facility] [address] [place], [place] [address]RkDr. Jeramy Dumont Covid-19 PCR (CVDTBH)on 10-03 SARS-CoV-2 (COVID-19) RNA TRAVON+probe Ql (Unsp spec) Not detected Normal NOT DETECTED [facility] Comment on above: Result Comment: This test is not yet approved or cleared by the [place] FDA. When there are no FDA-approved or cleared tests available, and other criteria are met, FDA can make tests available under an emergency access mechanism called an Emergency Use Authorization (EUA). The EUA for this test is supported by the [place] of Health and Human Service's (HHS's) declaration [...] with SARS-CoV-2. Performed By: #### C VDTBH ####[facility] [address] [place], [place] [address]BwTeddy Dumont Established Visit (Gastroent erology)on 04-30-2020 Established Visit (Gastroenterology) Diagnoses/Problems Assessed Chronic idiopathic constipation (564.00) (K59.04) Esophageal reflux (530.81) (K21.9) Orders Chronic idiopathic constipation Start: Amitiza 8 MCG Oral Capsule; Take 1 capsule twice daily Rx By: Krzysztof Larkin; Dispense: 0 Days ; #:60 Capsule; Refill: 1;For: Chronic idiopathic constipation; ASHLYN = N; Verified Transmission to [facility]; Last Updated By: [employer] 04/30/2020 1:37:03 PM Esophageal reflux Renew: Omeprazole 20 MG Oral Capsule Delayed Release; TAKE 1 CAPSULE DAILY Rx By: Krzysztof Larkin; Dispense: 0 Days ; #:90 Capsule; Refill: 1;For: Esophageal reflux; ASHLYN = N; Verified Transmission to [facility]; Last Updated By: [employer] 04/30/2020 1:37:11 PM Patient Discussion/Summary Change omeprazole [...] Daily Oral Tablet Vitals Vital Signs Recorded: [id number] 01:17PM Ebrhvsunpmh23 F Height5 ft 3 in Pfhfxr581 lb BMI Iyuwaxfizo69.74 BSA Calculated1.63 Physical Exam Constitutional General appearance: [...] Normal [facility] MRI BRAIN WO/W IVCONon 02-13 [facility] C-Reactive Proteinon 019 CRP mass conc mg/L Normal 0.0-0.4 [facility] Comment on above: Performed By: #### C BCDIF, CRP #### [address] [place] [address] #### WSR #### [facility] [address] [place] [phone] CBC and Differentialon 10-31 Abs Baso 0.05 k/uL Normal <0.11 [facility] Comment on above: Performed By: #### C BCDIF, CRP #### [address] [place] [address] #### WSR #### [facility] [address] [place] [phone] Abs [place] 0.49 k/uL Normal <0.87 [facility] Health Comment on above: Performed By: #### C BCDIF, CRP #### [address] [place] [address] #### WSR #### [facility] [address] [phone] Abs Neut 6.28 k/uL Normal 1.45-7.50 [facility] Comment on above: Performed By: #### C BCDIF, CRP #### [address] [place] [address] #### WSR #### [facility] [address] [address] Absolute nRBC <0.01 Normal <0.01 [facility] Comment on above: Performed By: #### C BCDIF, CRP #### [facility] [address] [facility] [place] [address] #### WSR #### [facility] [address] [place] [address] Basophils/100 WBC (Bld) 0.6 % Normal [facility] Comment on above: Performed By: #### C BCDIF, CRP #### [address] [place] [address] #### WSR #### [place] [phone] DTYPE Auto Diff [facility] Comment on above: Performed By: #### C BCDIF, CRP #### [address] [place] [address] #### WSR #### [place] [phone] Eosinophils #/vol (Bld) 0.08 10*3/uL Normal <0.46 [facility] Comment on above: Performed By: #### C BCDIF, CRP #### [address] [place] [address] #### WSR #### [facility] [address] [place] [phone] Eosinophils/100 WBC (Bld) 0.9 % [facility] Comment on above: Performed By: #### C BCDIF, CRP #### [address] [place] [address] #### WSR #### [facility] [address] [place] [phone] Erythrocyte distribution width Ratio (RBC) 13.5 % Normal 11.5-15.0 [facility] Comment on above: Performed By: #### C BCDIF, CRP #### [address] [place] [address] #### WSR #### [place] [address] [place] [phone] Hematocrit Volume Fraction (Bld) 42.3 % Normal 36.0-46.0 [facility] Comment on above: Performed By: #### C BCDIF, CRP #### [address] [place] [address] #### WSR #### [place] [phone] Hemoglobin mass conc (Bld) 14.0 g/dL Normal 11.5-15.5 [facility] Comment on above: Performed By: #### C BCDIF, CRP #### [address] [place] [address] #### WSR #### [place] [phone] Lymphocytes #/vol (Bld) 2.07 10*3/uL Normal 1.00-4.00 [facility] Comment on above: Performed By: #### C BCDIF, CRP #### [address] [place] [address] #### WSR #### [place] [address] [place] [phone] Lymphocytes/100 WBC (Bld) 23.1 % Normal [facility] Comment on above: Performed By: #### C BCDIF, CRP #### [address] [place] [address] #### WSR #### [facility] [address] [place], [place] [address] MCH Entitic mass (RBC) 31.1 pG Normal 26.0-34.0 [facility] Comment on above: Performed By: #### C BCDIF, CRP #### [address] [place] [address] #### WSR #### [facility] [address] [place], [place] [address] MCHC mass conc (RBC) 33.1 g/dL Normal 30.5-36.0 [facility] Comment on above: Performed By: #### C BCDIF, CRP #### [address] [place] [address] #### WSR #### [place] [address] MCV Entitic volume (RBC) 94.0 fL Normal 80.0-100.0 [facility] Comment on above: Performed By: #### C BCDIF, CRP #### [address] [place] [address] #### WSR #### [place] [address] [place] [phone] Monocytes/100 WBC (Bld) 5.5 % Normal [facility] Comment on above: Performed By: #### C BCDIF, CRP #### [address] [place] [address] #### WSR #### [facility] [address] [place], [place] [address] Neutrophils/100 WBC (Bld) 69.9 % Normal [facility] Comment on above: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 screening 03/03/2009 2 Degeneration of lumbar or lumbosacral interverte bral disc 01/24/2009 10/22/2013 Dyspareunia 11/04/2017 Tobacco user 05/03/2013 documented as of this encounter (statuses as of 02/01/2022) [facility] of Past illness Narrative* Problem Noted Date Resolved Date Screening breast examination 06/05/2012 Chest pain 09/17/2011 05/03/2013 Abnormal mammogram 08/02/2011 11/04/2017 Screening breast examination 03/30/2011 Colon cancer screening 03/03/2009 2 Degeneration of lumbar or lumbosacral interverte bral disc 01/24/2009 10/22/2013 Dyspareunia 11/04/2017 Tobacco user 05/03/2013 documented as of this encounter (statuses as of 05/07/2022) [facility] History of Past illness Narrative* Problem Noted Date Resolved Date Screening breast examination 06/05/2012 Chest pain 09/17/2011 05/03/2013 Abnormal mammogram 08/02/2011 11/04/2017 Screening breast examination 03/30/2011 Colon cancer screening 03/03/2009 2 Degeneration of lumbar or lumbosacral interverte bral disc 01/24/2009 10/22/2013 Dyspareunia 11/04/2017 Tobacco user 05/03/2013 documented as of this encounter (statuses as of 06/21/2022) [facility] of Past illness Narrative* Problem Noted Date Diagnosed Date Resolved Date Screening breast examination 06/05/2012 05/03/2013 Chest pain 09/17/2011 05/03/2013 Abnormal mammogram 08/02/2011 8 Screening breast examination 03/30/2011 08/02/2011 Colon cancer screening 03/03/200908/02 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 01/24/2009 10/22/2013 Dyspareunia 11/04/2017 Tobacco user 05/03/2013 documented as of this encounter (statuses as of 05/08/2023) [facility] + Plan note No data available for this section [facility] Diagnosis Encounter for screening mammogram for breast cancer documented in this encounter [facility] note* Diagnosis Onset Date Resolution Status Encounter for screening colonoscopy [facility] Work Phone: Evaluation note* Diagnosis Chronic mixed headache syndrome Other headache syndromes documented in this encounter [facility] noteNo [facility] [employer] Other Hospital Discharge instructions Additional Instructions DISCHARGE [...] NOT operate machinery such as power tools, [employer] mowers, snow blowers, sewing machines, etc. -Avoid [...] kiwi fruit Repeat colonoscopy in 5 years [facility] Feet 1 p.o. every morning -Notify the doctor if you have any problems. -Office number [phone] Work Phone: Hospital Discharge instructions No data available for this section [facility]* Name Dates Details Instructions not documented [facility] Work Phone: Progress note No data available for this section [facility] for referral (narrative)* Diagnostic Procedure Only (Routine) - Pending Review Specialty Diagnoses / Procedures Referred By Zaid gutiérrez Referred To Contact [facility] Diagnoses Encounter for screening mammogram for breast cancer Procedures DOLORES SCREENING SCREENING MAMMOGRAPHY BI 2-VIEW BREAST [place] CAD Jyoti García [place] [address] [place] [address] [facility] [address] [place] [address] Referral ID Status Reason Start Date Expiration Date Visits Requested Visits Authorized [id number] Pending Review Auto-Generat ed Referral 2 07/16/2023 1 1 [facility] for referral (narrative)* Diagnostic Procedure Only (Routine) - Closed Specialty Diagnoses / Procedures Referred By Zaid gutiérrez Referred To Contact [facility] Diagnoses Chronic mixed headache syndrome G44.89 (ICD-10-CM) - Chronic mixed headache syndrome Procedures MRI BRAIN WO/W IVCON MRI BRAIN COMBO MRI BRAIN WO/[place] Jyoti García [place] [address] [place] [address] [place] [address] Referral ID Status Reason Start Date Expiration Date V isits Requested Visits Authorized [id number] Closed Auto-Generate d Referral 02/11/2020 07/03/2020 1 1 T [facility] Summary Purpose Family History No Family History Records Found Relationship Condition Age at Onset Recorded Date/T bishop brother Malignant neoplasm of colon Unknown sister Malignant neoplasm of bone Unknown sister Malignant neoplasm of pancreas Unknown Advance Directives No Advanced Directives Records FoundDocuments on File Type Date Recorded 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 Advance Directive(s) 10/31/2018 9:16 AM Advance Directive(s) 12/04/2012 9:42 PM Advance Directive(s) 11/29/2012 9:09 PM Documents on File Type Date Recorded 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 Advance Directive(s) 12/04/2012 9:42 PM Advance Directive(s) 11/29/2012 9:09 PM Documents on File Type Date Recorded 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 Advance Directive(s) 12/04/2012 9:42 PM [...] Diagnosis 1 Post-nasal drainage (R09.82) Referral [facility] Referring Provider First Name Sharonda Referring Provider Last Name Michele Referring Provider Specialty Family [facility] cine Referred Organization [facility] Referred Provider Shaan Villalta Referred Address ,[place], [place],[address] Referred Provider Specialty Ear, Nose an d Throat Referral Priority Routine General Notes Iam Inessa 02:51:01 PM >received today, notes locked, ins attached, referral faxed Additional Source Comments INFORMATION SOURCE (unrecogn ized section and content) DATE CREATED AUTHOR 11/12/2018 [facility] DATE CREATED AUTHOR AUTHOR'S ORGANIZ ATION 06/18/2019 [facility] DATE CREATED AUTHOR AUTHOR'S ORGANIZ ATION 05/01/2020 [employer] DATE CREATED AUTHOR AUTHOR'S ORGANIZ ATION 08/01/2022 [facility] DATE CREATED AUTHOR AUTHOR'S ORGANIZ ATION 10/26/2022 [facility] DATE CREATED AUTHOR AUTHOR'S ORGANIZ ATION 05/30/2023 [facility] DATE CREATED AUTHOR AUTHOR'S ORGANIZ ATION 07/07/2023 [facility] DATE CREATED AUTHOR AUTHOR'S ORGANIZ ATION 08/20/2023 [facility] DATE CREATED AUTHOR AUTHOR'S ORGANIZ ATION 09/06/2023 [facility] DATE CREATED AUTHOR AUTHOR'S ORGANIZ ATION 04/07/2024 [facility] Source Comments (unrecognize d section and content) In the event this informatio n is protected by the Federal Confidentiality of Alcohol and Drug Abuse Patient Records regulations: The Federal rules restrict any use of the information to criminally investigate or prosecute any alcohol or drug abuse patient.[facility] HospitalIn the event this information is protected by the Federal Confidentiality of Alcohol and Drug Abuse Patient Records regulations: The Federal rules restrict any use of the information to criminally investigate or prosecute any alcohol or drug abuse patient.[facility] HospitalIn the event this information is protected by the Federal Confidentiality of Alcohol and Drug Abuse Patient Records regulations: The Federal rules restrict any use of the information to criminally investigate or prosecute any alcohol or drug abuse patient.[facility] HospitalIn the event this information is protected by the Federal Confidentiality of Alcohol and Drug Abuse Patient Records regulations: The Federal rules restrict any use of the information to criminally investigate or prosecute any alcohol or drug abuse patient.[facility] Reason for Visit (unrecogniz ed section and content) Reason Comments Refill Request Reason Comments Radiology MRI Specialty Diagnoses / Procedures Referred By Contac t Referred To Contact MR IMAGING Diagnoses Chronic mixed headache syndrome G44.89 (ICD-10-CM) - Chronic mixed headache syndrome Procedures MRI BRAIN WO/W IVCON MRI BRAIN COMBO MRI BRAIN WO/W IVCON Jyoti García [place] [address] [place] [address] [place] [address] Referral ID Status Reason Start Date Expiration Date V isits Requested Visits Authorized [id number] Closed Auto-Generate d Referral 02/11/2020 07/03/2020 1 1 Care Teams (unrecognized sec tion and content) Media Services Director Relationship Specialty Start Date End Date Jyoti García [place] [address] [place] [address] PCP - General Internal Medicine 09/11/19 Media Services Director Relationship Specialty Start Date End Date Jyoti García [place] [address] [place] [address] PCP - General Internal Medicine 09/11/19 Media Services Director Relationship Specialty Start Date End Date Jyoti García [place] [address] [place] [address] PCP - General Internal Medicine 09/11/19 Team Status: Inactive Member Role Status Dates Enrrique Grant MD Attending Provider Active Jameel Manzanares MD Primary Care Provider Active Team Status: Active Member Role Status Dates Jameel Manzanares MD Primary Care Provider Active Media Services Director Relationship Specialty Start Date [place] Jyoti [place]ía [place] [address] [place] [address] PCP - General Internal Medicine 09/11/19 FOR [...] BE BASED ON THE PRIMARY CLINICAL RECORDS. [facility] [employer] [facility]. provides no warranty or guarantee of the accuracy or completeness of information in this document.
== END 2024-05-02 08:50 | disposition home or self-care (01) ==
LOC: PM 08:50
PROVIDERS: PCP Family Medicine; Visit Provider Nurse Practitioner
DX: M47.816 Spondylosis without myelopathy or radiculopathy, lumbar region (principal); M19.90 Unspecified osteoarthritis, unspecified site; M62.838 Other muscle spasm; M47.814 Spondylosis without myelopathy or radiculopathy, thoracic region
CPT/HCPCS: G0463

== ENCOUNTER 2024-05-04 07:57 | Outpatient (OUT) | payer MEDICARE, SELFPAY ==
--- OUTSIDE RECORDS SUMMARY | 2024-05-04 08:00 | XMS_ITS | CCD ---
Author Organization [facility] Care Team Providers Care Wood Science Professor Name Role Phone MARNIE ERWIN Attending Unavailable Abbass, Rami Unavailable Unavailable Unknown, Referring Provider Unavailable Unav ailable Abbass, Rami Unavailable Unavailable Chaya PAUL, Rami Unavailable Unavailable Unknown, Referring Provider Unavailable Unav ailable Raquel PAUL, Jyoti Lugo Primary Care Provider [phone] Jyoti García MD Primary Care Provider [phone] Jyoti García MD Primary Care Provider [phone] MD Enrrique Grant Attending Provider [phone] MD Jameel Manzanares Primary Care Provider Enrrique Grant Attending UnavailEnrrique Contreras Admitting Unavailabl e Bryson, Jameel Primary Care Unavailable Enrrique Grant Unavailable [phone] ROSANA ., DR ANTONELLA Lugo Consulting Unavailable [...] [employer] Consulting Unavailable ARMANDO .SWEETIE Consulting Unavailable NADERELuba, DR JAMEEL Ellis Primary [...] Calix Unavailable TIMMIS, SHAAN H Attending Unavailable CALIXSHARONDA Referring Unavailable Timmis, Shaan H Admitting Unavailable Timmis, Shaan H Attending Unavailable Timmis, Shaan H Referring Unavailable TIMMIS, SHAAN H Attending Unavailable KIERAN PETERSEN Referring Unavailable KEVIN, KARLOS Referring Unavailable GUILLEKIERAN Referring Unavailable KEVIN, KARLOS Referring Unavailable KEVIN, KARLOS Referring Unavailable KIERAN PETERSEN Attending Unavailable KIERAN PETERSEN Attending Unavailable JOSE VILLALOBOS Attending Unavailable RUBI YOO Attending Unavailable KEVIN, KARLOS Referring Unavailable KEVIN, KARLOS Referring Unavailable KIERAN PETERSEN Admitting Unavailable GUILLEKIERAN Rock Attending Unavailable KEVIN, KARLOS Referring Unavailable KARLOS BROWN Referring Unavailable Viridiana PAUL, Jim Mckay Attending Unavailable Allergies Allergy Classification Reported Allergen(s) Allergy Type Date of Onset Reaction(s) Facility Prochlorperazine (1 source) Prochlorperazine Drug Allergy [facility] [employer] Work Phone: Sulfonamides (antibiotic) (1 source) Sulfonamides (Antibiotic) Drug Allergy [facility] Work Phone: (5 sources) Hydroxychloroquine; 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: [HYDROXYCHLOROQUINE SULFATE] Drug Allergy 006 Rash [facility] Repository (8 sources) Sulfonamides (Antibiotic); 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: [SULFA (SULFONAMIDE ANTIBIOTICS)] Propensity to adverse reactions to drug (disorder) Unknown Reaction [facility] Repository (6 sources) AMOXICILLIN-POT CLAVULANATE; 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: [AMOXICILLIN-POT CLAVULANATE] Propensity to adverse reactions to drug (disorder) 019 Rash [facility] Repository (5 sources) PROCHLORPERAZINE EDISYLATE; 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: [PROCHLORPERAZINE EDISYLATE] Propensity to adverse reactions to drug (disorder) 006 [facility] Repository (4 sources) Sulfonamides (Antibiotic) [facility] Work [facility]: (1 source) drug allergy [facility] Work Phone: (13 sources) Prochlorperazine; 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: [Compazine] Drug Allergy Unknown [facility] Repository (6 sources) Prochlorperazine; 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: [PROCHLORPERAZINE] Drug Allergy Other: See Comments [facility] (5 sources) traMADol; 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: [TRAMADOL] Drug Allergy 019 Intolerance, GI Upset [facility] (1 source) Prochlorperazine Drug Allergy 023 [facility] Repository (9 sources) Sulfacetamide / Sulfur Drug Allergy Unknown [facility] Other (1 source) Sulfonamides (Antibiotic) Drug allergy (disorder) [facility] Repository (1 source) Hydroxychloroquine; 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: [HYDROXYCHLOROQUINE ] Drug Allergy 006 [facility] Repository Medications Current Medications Medication Drug Class(es) Dates Sig (Normalized) Sig (Original) [id number] actuat albuterol 0.09 mg/actuat metered dose [...] sources) Start: 07-29-2022 [facility] Magnesium Active [...] TAB PO Daily July 29, 2022 12:00am Wayland 3 (9 sources) Wayland 3 Active Wayland-3 Fatty Acids (1 source) Start : 07-29 take 1000 mg by mouth once daily Wayland-3 Fatty Acids Active 1000 MG PO Daily [...] on above: TAKE 1 CAPSULE BY MO [facility] EVERY DAY travoprost (13 sources) Prostaglandin [...] capsule by [facility] daily at bedtime for 30 days. ibuprofen/diphenhy [...] [facility] once daily. MV with Aim-Spolvhbo-Lhnvzk (CENTRUM SILVER) 0.4-300-250 mg-mcg-mcg tab (1 source) Start: 07-07-19 take 1 tablet by mouth once daily MV with Psc-Twrvubur-Rucfdp (CENTRUM SILVER) 0.4-300-250 mg-mcg-mcg tab Take 1 [...] Comment on above: Take 1 capsule by [facility] daily at bedtime. 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 HX MAL NEOPLASM OTH ORGN/SYS] Onset: 2 Episodic Residual codes; unclassified (1 source) Family history of malignant neoplasm of trachea, bronchus and lung; 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: [[facility] HX MARJORIEIG NEOPLSM TRACH BRON LNG] Onset: 2 Episodic Residual codes; unclassified (1 source) Family history of malignant neoplasm of digestive organs; 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: [[facility] NEOPLASM DIGESTIV ORGN] Onset: 2 Episodic Spondylosis; [...] she should continue. She verbalized understanding. Normal [facility] Office Visiton 02-28-2024 Follow-up visit [id number] Marly Jaffe 1955 Provider Department Center 02/28/2024 KIERAN FRIEDMAN SUSANA Wilkinsevseth Hoffman Family History Problem Relation Age of Onset Stroke Mother Hypertension Mother Cancer Mother Stroke Father Other Father Family Status - Relation Status Age at Mother Father Level of Service:82489 NC OFFICE/OUTPATIENT ESTABLISHED LOW MDM 20 MIN Normal [facility] Office Visiton 12-01-2023 Follow-up visit [id number] Marly Jaffe 1955 Provider Department Center 12/01/2023 RUBI PATEL SUSANA Hoffman Family History Problem Relation Age of Onset Stroke Mother Hypertension Mother Cancer Mother Stroke Father Other Father Family Status - Relation Status Age at Mother Father Level of Service:30330 NC OFFICE/OUTPATIENT NEW LOW MDM 30 MINUTES Normal [facility] CT Maxillofacial w/o Contras ton 08-19-2023 CT [...] Gordillo MD Transcribed by: CHRISTIAN Technologist: MARTELL [facility] Consent for Treatmenton 08-04 Consent for Treatment [id number] #1.00TIFF [facility] Physician Orderon 07-08-2023 Physician Order [id number] #1.00TIFF [facility] Office Visiton 06-20-2023 Follow-up visit [id number] Marly Jaffe 1955 F Date Provider Department Center 06/20/2023 Abraham-JOSE VILLALOBOS CARD [facility] Family History Problem Relation Age of Onset Stroke Mother Hypertension Mother Cancer Mother Stroke Father Other Father Family Status - Relation Status Age at Mother Father Level of Service:78353 NC OFFICE/OUTPATIENT ESTABLISHED MOD MDM 30 MIN [facility] HPon 05-19-2023 H&P reviewed. The patient was examined and there are no changes to the H&P. [facility] HP H&P reviewed. The patient was examined and there are no changes to the H&P. [facility] NURSNOTEon 05-19-[address] Petersen for pt to discharge at this time. [facility] JIMBONOTE RN educated pt on d/c instructions. RN encouraged pt to voice any questions or concerns. Pt verbalizes no questions or concerns at this time. Pt was wheeled off of unit with all of belongings. [facility] HPon 04-26-2023 [facility] Cardiology Consult Note Reason for visit: Palpitations, [...] oriented to (more content not included)... Normal [facility] Office Visiton 04-26-2023 Follow-up visit [id number] Marly Jaffe 1955 F Date Provider Department Center 04/26/2023 KIERAN FRIEDMAN SUSANA Hoffman Family History Problem Relation Age of Onset Stroke Mother Hypertension Mother Cancer Mother Stroke Father Other Father Family Status - Relation Status Age at Mother Father Level of Service:57558 NC OFFICE/OUTPATIENT ESTABLISHED HIGH [facility] 40-54 MIN Normal [facility] CT LUNG CANCER SCREENINGon 0 [...] ÁNGEL PUGH Date: 2022-08-04 14:41 Normal [facility] XR RIBS BIL_PA CH 4V OR [...] ÁNGEL PUGH Date: 2022-08-04 14:45 Normal [facility] XR TSPINE MIN 4 VIEWSon XR [...] by: ÁNGEL PUGH Date: 2022-08-04 14:42 Normal [facility] Desean 07-29-2022 L Specimen: [id number] Received: 07/29/22 Status: HUY Dinah Num: [id number] Spec Type: Surgical Subm Dr: Enrrique Grant MD Tissues: A Colon Biopsy (POLYP SIGMOID) Procedures: HE/2, Gross/Micro L4 Age/ Patient Sex Location Account Attending Physician Marly Jaffe 67/F [id number] Enrrique Grant MD SPEC NUM: [id number] RECD: 07/29/22 STATUS: HUY DINAH NUM: [id number] SALOMON: 07/29/22- SUBM DR: Enrrique Grant MD [...] support the above pathologic diagnosis. CPT Codes 55813 Specimen: [id number] Received: 07/29/22 Status: HUY Mejia Num: [id number] Spec Type: Surgical Subm Dr: Enrrique Grant MD Tissues: A Colon Biopsy (POLYP SIGMOID) Procedures: BRYAN, Gross/Micro L4 Patient: Marly Jaffe [id number] (Continued) Signed (signature on file) Benjamin Wolf MD 07/30/22 1133 [facility] ECHOCARDIO M/2D COMPLETEon 0 07-13-2022 ECHOCARDIO M/2D COMPLETE Patient: MARLY JAFFE Exam Date: 07/13/2022 : 1955 Gender:F Ordering : KIERAN ElvaTeddy PETERSEN Admission #: [id number] Family : Order #: [id number] CLICK HERE TO VIEW EXAM ECHOCARDIOGRAM REPORT [...] Mak M.D. on 07/15/2022 at 10:33 Normal [facility] MAMM SCREEN 3D LAWRENCE CADon 06-23-2022 MG MAMM SCREEN 3D LAWRENCE CAD Patient: MARLY JAFFE Exam Date: 06/23/2022 : 1955 Gender:F Ordering : DR MERCY MORGAN . Admission #: [id number] Family : Order #: [id number] CLICK HERE TO VIEW EXAM RADIOLOGY REPORT [...] colon cancer at age 51. LOCATION: [facility] BREAST COMPOSITION: Scattered areas fibroglandular density. [...] Pugh M.D. on 06/23/2022 at 14:39 Normal [facility] PAP ACOG PANEL 2: 30 to 65on 06-23-2022 . . Normal [facility] Comment on above: Performed By: #### 4 [id number] #### [facility] [address] [place] [address] Dr. Jeramy Dumont Age Gdln ACOG Testing Comment Normal [facility] Comment on above: Result Comment: <21 or >65 or no age provided Performed By: #### 4 [id number] #### [facility] [address] [place] [address] Dr. Jeramy Dumont DIAGNOSIS: Comment Normal [facility] Comment on above: Result Comment: NEGA TIVE FOR INTRAEPITHELIAL LESION OR MALIGNANCY. REACTIVE CELLULAR CHANGES AND/OR REPAIR ARE PRESENT. Performed By: #### 4 [id number] #### [facility] [address] [place] [address] Dr. Jeramy Dumont Electronically signed by: Comment Normal [facility] Comment on above: Result Comment: Bere Aguilar MD, Pathologist Performed By: #### 4 [id number] #### [facility] [address] [place] [address] Dr. Jeramy Dumont Methodology: Comment Normal [facility] Comment on above: Result Comment: This liquid based ThinPrep(R) pap test was screened with the use of an image guided system. Performed By: #### 4 [id number] #### [facility] [address] [place] [address] Dr. Jeramy Dumont Note: Comment Normal [facility] Comment on above: Result Comment: The Pap smear is a screening test designed to aid in the detection of premalignant and malignant conditions of the uterine cervix. It is not a diagnostic procedure and should not be used as the sole means of detecting cervical cancer. Both false-positive and false-negative reports do occur. . Performed By: #### 4 [id number] #### [facility] [address] [place] [address] Dr. Jeramy Dumont Performed by: Comment Normal [facility] Comment on above: Result Comment: Norma Mancia Amr Physician (ASCP) Performed By: #### 4 [id number] #### [facility] [address] [place] [address] Dr. Jeramy Dumont Specimen adequacy: Comment Normal [facility] Comment on above: Result Comment: Sati sfactory for evaluation. Endocervical and/or squamous metaplastic cells (endocervical component) are present. Performed By: #### 4 [id number] #### [facility] [address] [place] [address] Dr. Jeramy Dumont XR DEXA BONE DENSITYon [...] by: ÁNGEL PUGH Date: 2022-06-23 11:46 Normal [facility] CBC AUTO DIFFon 04-27-2022 BASO # 0.1 103/ul Normal 0.0-0.1 [facility] Comment on above: Performed By: #### C BC ####[facility] [address] [place], [place] [address]Dr. Jeramy Dumont Basophils/100 WBC (Bld) 0.6 % Normal 0.2-2.0 [facility] Comment on above: Performed By: #### C BC ####[facility] [address] [place], [place] [address]DrTeddy Dumont EO # 0.2 103/ul Normal 0.0-0.7 [facility] Comment on above: Performed By: #### C BC ####[facility] [address] [place], [place] [address]DrTeddy Dumont Eosinophils/100 WBC (Bld) 1.9 % Normal 0.9-7.0 [facility] Comment on above: Performed By: #### C BC ####[facility] [address] [place], [place] [address]DrTeddy Dumont Erythrocyte distribution width (RBC) [Ratio] 13.3 % Normal 11.0-15.0 [facility] Comment on above: Performed By: #### C BC ####[facility] [address] [place], [place] [address]DrTeddy Dumont Hematocrit (Bld) [Volume fraction] 41.1 % Normal 36.0-48.0 [facility] Comment on above: Performed By: #### C BC ####[facility] [address] [place] [address]DrTeddy Jeramy Dumont Hemoglobin (Bld) [Mass/Vol] 13.4 g/dL Normal 12.0-16.0 [facility] Comment on above: Performed By: #### C BC ####[facility] [address] [address]DrTeddy Jeramy Dumont IG # 0.02 10e3/ul Normal 0.00-0.03 [facility] Comment on above: Performed By: #### C BC ####[facility] [address] [place], [place] [address]DrTeddy Jeramy Tim IG % 0.2 % Normal 0.0-0.5 [facility] Comment on above: Performed By: #### C BC ####[facility] [address] [place], [place] [address]DrTeddy Dumont LYMPH # 3.2 103/ul Normal 1.2-3.8 [facility] Comment on above: Performed By: #### C BC ####[facility] [address] [place], [place] [address]DrTeddy Moniquelaura Dumont Lymphocytes/100 WBC (Bld) 39.1 % Normal 20.5-60.0 [facility] Comment on above: Performed By: #### C BC ####[facility] [address] [place], [place] [address]DrTeddy Dumont MANUAL DIFF REQ NO Normal [facility] Comment on above: Performed By: #### C BC ####[facility] [address] [place], [place] [address]DrTeddy Jeramy Tim MCH (RBC) [Entitic mass] 30.7 pg Normal 26.7-34.0 [facility] Comment on above: Performed By: #### C BC ####[facility] [address] [place], [place] [address]DrTeddy Moniquelaura Dumont MCHC (RBC) [Mass/Vol] 32.6 g/dL Normal 29.9-35.2 [facility] Comment on above: Performed By: #### C BC ####[facility] [address] [place], [place] [address]DrTeddy Jeramy Tim MCV (RBC) [Entitic vol] 94.3 fL Normal 81.0-99.0 [facility] Comment on above: Performed By: #### C BC ####[facility] [address] [place], [place] [address]DrTeddy Dumont MONO # 0.6 103/ul Normal 0.3-0.8 [facility] Comment on above: Performed By: #### C BC ####[facility] [address] [place], [place] [address]DrTeddy Dumont Monocytes/100 WBC (Bld) 6.6 % Normal 1.7-12.0 [facility] Comment on above: Performed By: #### C BC ####[facility] [address] [place], [place] [address]DrTeddy Dumont NEUT # 4.3 103/ul Normal 1.4-6.5 [facility] Comment on above: Performed By: #### C BC ####[facility] [address] [place], [place] [address]DrTeddy Dumont Neutrophils/100 WBC (Bld) 51.6 % Normal 43.0-75.0 [facility] Comment on above: Performed By: #### C BC ####[facility] [address] [place], [place] [address]DrTeddy Dumont Platelet mean volume (Bld) [Entitic vol] 9.8 fL Normal 9.5-13.5 [facility] Comment on above: Performed By: #### C BC ####[facility] [address] [place], [place] [address]DrTeddy Dumont PLT 283 103/ul Normal 150-450 [facility] Comment on above: Performed By: #### C BC ####[facility] [address] [place], [place] [address]DrTeddy Dumont RBC 4.36 106/ul Normal 4.20-5.40 [facility] Comment on above: Performed By: #### C BC ####[facility] [address] [place] [address]Dr. Jeramy Dumont WBC 8.3 103/ul Normal 4.0-11.0 [facility] Comment on above: Performed By: #### C BC ####[facility] [address] [place] [address]Dr. Jeramy Dumont FREE T3on 04-27-2022 FREE T3 2.20 pg/mlL Normal 2.18-3.98 [facility] Comment on above: Performed By: #### F T3, TSH, BMP, LIVER ####[facility] [address] [place] [address]Dr. Jeramy Dumont FREE T4on 04-27-2022 Free T4 [Mass/Vol] 0.96 ng/dL Normal 0.76-1.46 [facility] Comment on above: Performed By: #### F T4 ####[facility] [address] [place] [address]Dr. Jeramy Dumont LIVER PROFILEon 04-27-2022 Albumin [Mass/Vol] 3.7 g/dL Normal 3.4-5.0 [facility] Comment on above: Performed By: #### F T3, TSH, BMP, LIVER #### [facility] [address] [place] [address] Dr. Jeramy Dumont Albumin/Globulin [Mass ratio] 1.1 {ratio} Normal [facility] Comment on above: Performed By: #### F T3, TSH, BMP, LIVER #### [facility] [address] [address] [address] Jeramy Dumont ALP [Catalytic activity/Vol] 64 U/L Normal 46-116 [facility] Comment on above: Performed By: #### F T3, TSH, BMP, LIVER #### [facility] [address] [address] [address] Jeramy Dumont ALT [Catalytic activity/Vol] 28 U/L Normal 14-59 [facility] Comment on above: Performed By: #### F T3, TSH, BMP, LIVER #### [facility] [address] [address] [address] Jeramy Dumont AST [Catalytic activity/Vol] 16 U/L Normal 15-37 [facility] Comment on above: Performed By: #### F T3, TSH, BMP, LIVER #### [facility] [address] [place] [address] Dr. Jeramy Dumont BILI, CONJUGATED 0.1 mg/dL Normal 0.0-0.2 [facility] Comment on above: Performed By: #### F T3, TSH, BMP, LIVER #### [facility] [address] [place] [address] Dr. Jeramy Dumont Bilirubin [Mass/Vol] 0.2 mg/dL Normal 0.2-1.0 [facility] Comment on above: Performed By: #### F T3, TSH, BMP, LIVER #### [facility] [address] [place] [address] Dr. Jeramy Dumont Globulin (S) [Mass/Vol] 3.5 g/dL Normal T [facility] Comment on above: Performed By: #### F T3, TSH, BMP, LIVER #### [facility] [address] [place] [address] Dr. Jeramy Dumont Protein [Mass/Vol] 7.2 g/dL Normal 6.4-8.2 [facility] Comment on above: Performed By: #### F T3, TSH, BMP, LIVER #### [facility] [address] [place] [address] Dr. Jeramy Dumont PROF CHEM 8 (BAS METB)on Anion gap [Moles/Vol] 10.3 mmol/L Normal [facility] Comment on above: Performed By: #### F T3, TSH, BMP, LIVER #### [facility] [address] [place] [address] Dr. Jeramy Dumont Calcium [Mass/Vol] 9.0 mg/dL Normal 8.5-10.1 [facility] Comment on above: Performed By: #### F T3, TSH, BMP, LIVER #### [facility] [address] [address] [address] Jeramy Dumont Chloride [Moles/Vol] 105 mmol/L Normal 98-107 [facility] Comment on above: Performed By: #### F T3, TSH, BMP, LIVER #### [facility] [address] [address] [address] Jeramy Dumont CO2 [Moles/Vol] 30.7 mmol/L Normal 21.0-32.0 [facility] Comment on above: Performed By: #### F T3, TSH, BMP, LIVER #### [facility] [address] [address] [address] Jeramy Dumont Creatinine [Mass/Vol] 0.85 mg/dL Normal 0.55-1.02 [facility] Comment on above: Performed By: #### F T3, TSH, BMP, LIVER #### [facility] [address] [place] [address] Dr. Jeramy Dumont EGFR-AF KENYAN >60 Normal >=60 [facility] Comment on above: Performed By: #### F T3, TSH, BMP, LIVER #### [facility] [address] [place] [address] Dr. Jeramy Dumont EGFR-NON AF KENYAN >60 Normal >=60 [facility] Comment on above: Performed By: #### F T3, TSH, BMP, LIVER #### [facility] [address] [place] [address] Dr. Jeramy Dumont Glucose [Mass/Vol] 101 mg/dL Normal 74-106 [facility] Comment on above: Performed By: #### F T3, TSH, BMP, LIVER #### [facility] [address] [address] [address] Jeramy Dumont Potassium [Moles/Vol] 4.0 mmol/L Normal 3.5-5.1 [facility] Comment on above: Performed By: #### F T3, TSH, BMP, LIVER #### [facility] [address] [address] [address] Jeramy Dumont Sodium [Moles/Vol] 142 mmol/L Normal 136-145 [facility] Comment on above: Performed By: #### F T3, TSH, BMP, LIVER #### [facility] [address] [place], [place] [address] Dr. Jeramy Dumont Urea nitrogen [Mass/Vol] 15.0 mg/dL Normal 7.0-18.0 [facility] Comment on above: Performed By: #### F T3, TSH, BMP, LIVER #### [facility] [address] [place], [place] [address] Dr. Jeramy Dumont Urea nitrogen/Creatinine [Mass ratio] 17.6 mg/mg Normal [facility] Comment on above: Performed By: #### F T3, TSH, BMP, LIVER #### [facility] [address] [place], [place] [address] Dr. Jeramy Dumont TSHon 04-27-2022 TSH 0.960 uIU/mL Normal 0.358-3.740 [facility] Comment on above: Performed By: #### F T3, TSH, BMP, LIVER ####[facility] [address] [place], [place] [address]GxDr. Jeramy Dumont Covid-19 PCR (CVDTB)on 10-03 SARS-CoV-2 (COVID-19) RNA TRAVON+probe Ql (Unsp spec) Not detected Normal NOT DETECTED [facility] Comment on above: Result Comment: This test is not yet approved or cleared by the [place] FDA. When there are no FDA-approved or cleared tests available, and other criteria are met, FDA can make tests available under an emergency access mechanism called an Emergency Use Authorization (EUA). The EUA for this test is supported by the [place] of Health and Human Service's (HHS's) declaration [...] consistent with SARS-CoV-2. Performed By: #### C [facility] ####[facility] [address] [place], [place] [address]EcTeddy Dumont Established Visit (Gastroent erology)on 04-30-2020 Established Visit (Gastroenterology) Diagnoses/Problems Assessed Chronic idiopathic constipation (564.00) (K59.04) Esophageal reflux (530.81) (K21.9) Orders Chronic idiopathic constipation Start: Amitiza 8 MCG Oral Capsule; Take 1 capsule twice daily Rx By: Krzysztof Larkin; Dispense: 0 Days ; #:60 Capsule; Refill: 1;For: Chronic idiopathic constipation; ASHLYN = N; [id number]; Last Updated By: Tebla; 04/30/2020 1:37:03 PM Esophageal reflux Renew: Omeprazole 20 MG Oral Capsule Delayed Release; TAKE 1 CAPSULE DAILY Rx By: Krzysztof Larkin; Dispense: 0 Days ; #:90 Capsule; Refill: 1;For: Esophageal reflux; ASHLYN = N; Verified Transmission to [id number]; Last Updated By: Tebla; 04/30/2020 1:37:11 PM Patient Discussion/Summary Change omeprazole [...] Daily Oral Tablet Vitals Vital Signs Recorded: [id number] 01:17PM Otpcqfztrzn35 F Height5 ft 3 in Btcywg572 lb BMI Gxtebijjpk65.74 BSA Calculated1.63 Physical Exam Constitutional General appearance: [...] Touchworks MRI BRAIN WO/W IVCONon 02-13 [facility] C-Reactive Proteinon 019 CRP mass conc mg/L Normal 0.0-0.4 [facility] Comment on above: Performed By: #### C BCDIF, CRP #### [address], [place] [address] #### WSR #### [facility] [address] [place] [phone] CBC and Differentialon 10-31 Abs Baso 0.05 k/uL Normal <0.11 [facility] Comment on above: Performed By: #### C BCDIF, CRP #### [address], [place] [address] #### WSR #### [facility] [address] [place] [phone] Abs Meigs 0.49 k/uL Normal <0.87 [facility] Comment on above: Performed By: #### C BCDIF, CRP #### [address] [place] [address] #### WSR #### [place] [address] [place] [phone] Abs Neut 6.28 k/uL Normal 1.45-7.50 [facility] Comment on above: Performed By: #### C BCDIF, CRP #### [address] [place] [address] #### WSR #### [facility] [address] [place] [phone] Absolute nRBC <0.01 Normal <0.01 [facility] Comment on above: Performed By: #### C BCDIF, CRP #### [address] [place] [address] #### WSR #### [place] [address] [place] [phone] Basophils/100 WBC (Bld) 0.6 % Normal [facility] Comment on above: Performed By: #### C BCDIF, CRP #### [address] [place] [address] #### WSR #### [place] [phone] DTYPE Auto Diff [facility] Comment on above: Performed By: #### C BCDIF, CRP #### [address] [place] [address] #### WSR #### [place] [phone] Eosinophils #/vol (Bld) 0.08 10*3/uL Normal <0.46 [facility] Comment on above: Performed By: #### C BCDIF, CRP #### [address] [place] [address] #### WSR #### [facility] [address] [place] [phone] Eosinophils/100 WBC (Bld) 0.9 % Normal [facility] Comment on above: Performed By: #### C BCDIF, CRP #### [address] [place] [address] #### WSR #### [place] [phone] Erythrocyte distribution width Ratio (RBC) 13.5 % Normal 11.5-15.0 [facility] Comment on above: Performed By: #### C BCDIF, CRP #### [address] [place] [address] #### WSR #### [place] [phone] Hematocrit Volume Fraction (Bld) 42.3 % Normal 36.0-46.0 [facility] Comment on above: Performed By: #### C BCDIF, CRP #### [address] [place] [address] #### WSR #### [place] [phone] Hemoglobin mass conc (Bld) 14.0 g/dL Normal 11.5-15.5 [facility] Comment on above: Performed By: #### C BCDIF, CRP #### [address] [place] [address] #### WSR #### [place] [phone] Lymphocytes #/vol (Bld) 2.07 10*3/uL Normal 1.00-4.00 [facility] Comment on above: Performed By: #### C BCDIF, CRP #### [address] [place] [address] #### WSR #### [place] [phone]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 Family history of early CAD [Z82.49] 09/17/2011 Syncope [R55] 09/17/2011 Postmenopausal HRT (hormone replacement therapy*06/05/2012 Screening breast examination [Z12.39] 06/05/2012 05/03/2013 Elevated IOP [H40.059] 05/03/2013 Multiple thyroid nodules [E04.2] 05/03/2013 Family history of colon cancer [Z80.0] 03/28/2017 Smoker [F17.200] 05/03/2017 Bilateral wrist pain [M25.531, M25.532] 07/14/2017 Encounter Status:Closed by [employer], PRODUSER on 06/21/22[facility] 05-07-2022 Miscellaneous Notes* Telephone Encounter - Judy Patel MA - 05/07/2022 7:21 AM EDT Pharmacy escribed requesting the following refill. Requested Prescriptions Pending Prescriptions Disp Refills omeprazole (PRILOSEC) 20 mg capsule [Pharmacy Med Name: OMEPRAZOLE DR 20 MG CAPSULE] 90 capsule 1 Sig: TAKE 1 CAPSULE BY MOUTH EVERY DAY Patient last appointment: 08/13/2020 Patient Phone numbers: [phone] (home) Request is for script(s) to be escript to pharmacy. Judy Patel MA [facility] NoteCONSULTATION CONSULTATION DATE: 02/10/2022 This is [...] changes in the weather. 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 She denies any [...] time and the patient is in agreement.[id number] NoteCONSULTATION CONSULTATION DATE: 11/26/2021 HISTORY OF PRESENT [...] Patient agrees with the plan of care. [facility] Signed and Approved by: SWEETIE ROBERTS . 12/03/2021 16:05:00[facility]08-13-[facility] History of Present illness Narrative* Gail Ferrari (Duong), RN - 02/14/2020 10:00 AM EDT Radiology [...] TIME: 9:41 AM [facility] History of Past illness Narrative* Problem Noted Date Resolved Date Screening breast examination 06/05/2012 Chest pain 09/17/2011 05/03/2013 Abnormal mammogram 08/02/2011 11/04/2017 Screening breast examination 03/30/2011 Colon cancer screening 03/03/2009 2 Degeneration of lumbar or lumbosacral interverte bral disc 01/24/2009 10/22/2013 Dyspareunia 11/04/2017 Tobacco user 05/03/2013 documented as of this encounter (statuses as of 02/01/2022) [facility]12-03-2012 History of Past illness Narrative* Problem Noted Date Resolved Date Screening breast examination 06/05/2012 Chest pain 09/17/2011 05/03/2013 Abnormal mammogram 08/02/2011 11/04/2017 Screening breast examination 03/30/2011 Colon cancer screening 03/03/2009 2 Degeneration of lumbar or lumbosacral interverte bral disc 01/24/2009 10/22/2013 Dyspareunia 11/04/2017 Tobacco user 05/03/2013 documented as of this encounter (statuses as of 05/07/2022) [facility]12-03-2012 History of Past illness Narrative* Problem Noted Date Resolved Date Screening breast examination 06/05/2012 Chest pain 09/17/2011 05/03/2013 Abnormal mammogram 08/02/2011 11/04/2017 Screening breast examination 03/30/2011 Colon cancer screening 03/03/2009 2 Degeneration of lumbar or lumbosacral interverte bral disc 01/24/2009 10/22/2013 Dyspareunia 11/04/2017 Tobacco user 05/03/2013 documented as of this encounter (statuses as of 06/21/2022) [facility] History of Past illness Narrative* Problem Noted Date Diagnosed Date Resolved Date Screening breast examination 06/05/2012 05/03/2013 Chest pain 09/17/2011 05/03/2013 Abnormal mammogram 08/02/2011 8 Screening breast examination 03/30/2011 08/02/2011 Colon cancer screening 03/03/200908/02 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 01/24/2009 10/22/2013 Dyspareunia 11/04/2017 Tobacco user 05/03/2013 documented as of this encounter (statuses as of 05/08/2023) [facility] note No data available for this section [facility] Diagnosis Encounter for screening mammogram for breast cancer documented in this encounter [facility] note* Diagnosis Onset Date Resolution Status Encounter for screening colonoscopy [facility] Work Phone: Evaluation note* Diagnosis Chronic mixed headache syndrome Other headache syndromes documented in this encounter [facility] noteNo [employer] Other Hospital Discharge instructions Additional Instructions DISCHARGE [...] kiwi fruit Repeat colonoscopy in 5 years [facility] 1 p.o. every morning -Notify the doctor if you have any problems. -Office number [phone] [facility] Work Phone: Hospital Discharge instructions No data available for this section [facility]* Name Dates Details Instructions not documented -[facility] Work Phone: Progress note No data available for this section [facility] for [facility] (narrative)* Diagnostic Procedure Only (Routine) - Pending Review Specialty Diagnoses / Procedures Referred By Zaid gutiérrez Referred To Contact [facility] Diagnoses Encounter for screening mammogram for breast cancer Procedures DOLORES SCREENING SCREENING MAMMOGRAPHY BI 2-VIEW [place] Jyoti García [place] [address] [place] [address] [facility] [address] [place] [address] Referral ID Status Reason Start Date Expiration Date Visits Requested Visits Authorized [id number] Pending Review Auto-Generat ed Referral 2 07/16/2023 1 1 [facility] for referral (narrative)* Diagnostic Procedure Only (Routine) - Closed Specialty Diagnoses / Procedures Referred By Zaid gutiérrez Referred To Contact [facility] Diagnoses Chronic mixed headache syndrome G44.89 (ICD-10-CM) - Chronic mixed headache syndrome Procedures MRI BRAIN WO/W IVCON MRI BRAIN COMBO MRI BRAIN WO/[place] Jyoti García [place] [address] [place] [address] [facility] [place] [address] Referral ID Status Reason Start Date Expiration Date V isits Requested Visits Authorized [id number] Closed Auto-Generate d Referral 02/11/2020 07/03/2020 1 1 [facility] Summary Purpose Family History No Family History Records Found Relationship Condition Age at Onset Recorded Date/T bishop brother Malignant neoplasm of colon Unknown sister Malignant neoplasm of bone Unknown sister Malignant neoplasm of pancreas Unknown Advance Directives No Advanced Directives Records FoundDocuments on File Type Date Recorded Patient [facility] Expl anation Advance Directive(s) 10/31/2018 9:16 AM Advance Directive(s) 12/04/2012 9:42 PM Advance Directive(s) 11/29/2012 9:09 PM Documents on File Type Date Recorded Patient [facility] Expl anation Advance Directive(s) 12/04/2012 9:42 PM Advance Directive(s) 11/29/2012 9:09 PM Documents on File Type Date Recorded Patient [facility] Expl anation Advance Directive(s) 12/04/2012 9:42 PM [...] Diagnosis 1 Post-nasal drainage (R09.82) Referral Organization [facility] Referring Provider First Name Sharonda Referring Provider Last Name Michele Referring Provider Specialty Family [facility] Referred Organization [facility] Referred Provider Shaan Villalta Referred Address ,[place], [place],[address] Referred Provider Specialty Ear, Nose an d Throat Referral Priority Routine General Notes Inessa Vitale 02:51:01 PM >received today, notes locked, ins attached, referral faxed Additional Source Comments INFORMATION SOURCE (unrecogn ized section and content) DATE CREATED AUTHOR 11/12/2018 [facility] DATE CREATED AUTHOR AUTHOR'S ORGANIZ ATION 06/18/2019 [facility] DATE CREATED AUTHOR AUTHOR'S ORGANIZ ATION 05/01/2020 [employer] DATE CREATED AUTHOR AUTHOR'S ORGANIZ ATION 08/01/2022 [facility] DATE CREATED AUTHOR AUTHOR'S ORGANIZ ATION 10/26/2022 [facility] DATE CREATED AUTHOR AUTHOR'S ORGANIZ ATION 05/30/2023 [facility] DATE CREATED AUTHOR AUTHOR'S ORGANIZ ATION 07/07/2023 [facility] dical [facility] DATE CREATED AUTHOR AUTHOR'S ORGANIZ ATION 08/20/2023 [facility] DATE CREATED AUTHOR AUTHOR'S ORGANIZ ATION 09/06/2023 [facility] dical Specialists [facility] DATE CREATED AUTHOR AUTHOR'S ORGANIZ ATION 04/07/2024 [facility] DATE CREATED AUTHOR AUTHOR'S ORGANIZ ATION 05/02/2024 [facility] Source Comments (unrecognize d section and content) In the event this informatio n is protected by the Federal Confidentiality of Alcohol and Drug Abuse Patient Records regulations: The Federal rules restrict any use of the information to criminally investigate or prosecute any alcohol or drug abuse patient.[facility] HospitalIn the event this information is protected by the Federal Confidentiality of Alcohol and Drug Abuse Patient Records regulations: The Federal rules restrict any use of the information to criminally investigate or prosecute any alcohol or drug abuse patient.[facility] HospitalIn the event this information is protected by the Federal Confidentiality of Alcohol and Drug Abuse Patient Records regulations: The Federal rules restrict any use of the information to criminally investigate or prosecute any alcohol or drug abuse patient.[facility] HospitalIn the event this information is protected by the Federal Confidentiality of Alcohol and Drug Abuse Patient Records regulations: The Federal rules restrict any use of the information to criminally investigate or prosecute any alcohol or drug abuse patient.[facility] Reason for Visit (unrecogniz ed section and content) Reason Comments Refill Request Reason Comments Radiology MRI Specialty Diagnoses / Procedures Referred By Zaid gutiérrez Referred To Contact [facility] IMAG[facility] Diagnoses Chronic mixed headache syndrome G44.89 (ICD-10-CM) - Chronic mixed headache syndrome Procedures MRI BRAIN WO/W IVCON MRI BRAIN COMBO MRI BRAIN WO/[place] Jyoti García [place] [address] [place] [address] [place] [address] Referral ID Status Reason Start Date Expiration Date V isits Requested Visits Authorized [id number] Closed Auto-Generate d Referral 02/11/2020 07/03/2020 1 1 Care Teams (unrecognized sec tion and content) 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 Start Date End Date Jyoti García [place] [address] [place] [address] PCP - General Internal Medicine 09/11/19 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 Start Date [place] Date Jyoti García [place] [address] [place] [address] PCP - General Internal Medicine 09/11/19 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 Start Date [place] Date Jyoti García [place] [address] [place] [address] PCP - General Internal Medicine 09/11/19 Team Status: Inactive Member Role Status Dates Enrrique Grant MD Attending Provider Active Jameel Manzanares MD Primary Care Provider Active Team Status: Active Member Role Status Dates Jameel Manzanares MD Primary Care Provider Active 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 [employer] provides no warranty or guarantee of the accuracy or completeness of information in this document.
[2024-05-04 08:29] LABS: Chol HDL Ratio 3.4; Cholesterol 258 mg/dL (<=200); HDL Cholesterol 75 mg/dL (40-60); Triglycerides 124 mg/dL (<=150); VLDL CHOLESTEROL 24.8 mg/dL
== END 2024-05-04 07:58 | disposition home or self-care (01) ==
LOC: LAB 07:57
PROVIDERS: PCP Family Medicine; Visit Provider Family Medicine
DX: I10 Essential (primary) hypertension (principal)
CPT/HCPCS: 36415; 80061

== ENCOUNTER 2024-05-17 10:46 | Outpatient (OUT) | payer MEDICARE, SELFPAY ==
--- NOTE | 2024-05-17 11:08 | P.CN_ITS ---
Consult Note: HPI Data of Consult Patient: known to practice within the last 3 years Requesting Physician: Janet Ramirez NP Primary Care Provider: Estelle Bautista MD Consult Narrative Reason for consult: f/u Narrative: Ann Marie Mccain a pleasant 68 year old female presents for evaluation and management of chronic low back pain. Patient has a longstanding history of chronic low back pain secondary for lumbar spondylosis, previous lumbar RFAs with Dr Lake provided >50% improvement greater than 6 months. Patient engaged in PT/aquatherapy ongoing without benefit, historically has failed to benefit from PT greater than 6 weeks. Patient utilizing advil and tylenol with mild benefit, no benefit from heat or TENS at this time. Underwent bilateral L4/5 L5/S1 facet RFA on 04/16/24 and has had increased pain since. denies numbness tingling weakness, loss of bowel or bladder. failed to benefit from cyclobenzaprine, noticed heart palpitations. cc:: CC: Janet Ramirez NP Review of Systems ROS Status of ROS 10 or more systems reviewed and unremark able except as noted in history and below Musculoskeletal Reports: back pain and joint pain Meds Home Medications and Allergies Home Medications ?Medication ?Instructions ?Recorded ?Confirmed ?Type alendronate 35 mg tablet 35 mg PO .WEEKLY 06/30/23 04/16/24 History alprazolam 1 mg tablet 1 mg PO TID 06/30/23 04/16/24 History montelukast 10 mg tablet 10 mg PO BID 06/30/23 04/16/24 History omeprazole 20 mg capsule,delayed mg 06/30/23 History release travoprost 0.004 % eye drops drp ophthalmic (eye) 06/30/23 History ascorbic acid (vitamin C) 500 mg mg PO 02/08/24 History capsule aspirin 81 mg capsule 81 mg PO DAILY 02/08/24 04/16/24 History baclofen 10 mg tablet 10 mg PO TID PRN muscle spasm 02/08/24 04/16/24 History cholecalciferol (vitamin D3) 50 50 mcg PO DAILY 02/08/24 04/16/24 History mcg (2,000 unit) capsule collagen PO 02/08/24 History magnesium oxide 500 mg capsule 500 mg PO DAILY 02/08/24 04/16/24 History metoprolol tartrate 25 mg tablet 25 mg PO DAILY 02/08/24 04/16/24 History multivitamin 1 tab PO DAILY 02/08/24 04/16/24 History Allergies Allergy/AdvReac Type Severity Reaction Status Date / Time prochlorperazine (From Allergy Unknown Seizure Verified 04/16/24 07:58 Compazine) Sulfa (Sulfonamide Allergy Unknown Rash Verified 04/16/24 07:58 Antibiotics) Exam Constitutional Documenting provider has reviewed patient's vital signs: yes Common normals: no apparent distress, oriented x3, healthy appearing, alert and well nourished General appearance: cooperative HENMT Common normals: normocephalic, hearing grossly normal bilaterally and moist oral mucous membranes Head and scalp: normocephalic Eye Common normals: PERRL Pupil: PERRL Neck & C-Spine Common normals: full ROM General: normal visual inspection Chest Common normals: inspection of chest normal Respiratory Common normals: normal respiratory effort, no retractions and no use of accessory muscles Back & Pelvis Common normals: thoracic and lumbar spine normal to inspection Thoracic spine/upper back: pain with ROM and paraspinal muscle tenderness Lumbar spine/lower back: pain with ROM, paraspinal muscle tenderness and straight leg raise negative bilaterally Sacroiliac joints: SI joint(s) abnormal Other: significant myofascial pain and discomfort pain not increased with extension, worse with rotation strength 5/5 in BLE sensation intact BLE bilateral SIJ positive sayra(patricks), gaenslens, thigh thrust, compression test Extremity Common normals: normal to inspection and full ROM Neuro Common normals: oriented x3, CN's II-XII intact bilaterally, moves all extremities, no focal motor deficits, no sensory deficits noted, deep tendon reflexes 2+ bilaterally and gait normal Sensorium/orientation: alert Motor exam: strength 5/5 throughout and no movement abnormalities noted Psych Common normals: mental status grossly normal, thought process normal, cooperative, affect normal, speech normal and activity/motor behavior normal Speech: normal speech Thought process: normal thought process Assessment and Plan Assessment and Plan (1) Lumbar degenerative disc disease: (2) Lumbar spondylosis: (3) Osteoarthritis: (4) Muscle spasm: Plan update lumbar MRI to assess chronic low back pain, lumbar DDD, lumbar spondylosis continue baclofen 10mg TID PRN pain/spasms continue tylenol and advil PRN as well as icy hot and voltaren cream f/u to review MRI
== END 2024-05-17 10:47 | disposition home or self-care (01) ==
LOC: PM 10:47
PROVIDERS: PCP Family Medicine; Visit Provider Nurse Practitioner
DX: M51.369 Other intervertebral disc degeneration, lumbar region without mention of lumbar back pain or lower extremity pain (principal); M47.816 Spondylosis without myelopathy or radiculopathy, lumbar region; M19.90 Unspecified osteoarthritis, unspecified site; M62.838 Other muscle spasm
CPT/HCPCS: G0463

== ENCOUNTER 2024-05-30 14:34 | Outpatient (OUT) | payer MEDICARE, SELFPAY ==
--- NOTE | 2024-05-30 14:37 | MR_ITS ---
[address] [address] Patient Name: MARLY JAFFE MRN: [id number] date: 1955 Sex: F Assigned Patient Location: MRI Current Patient Location: Accession/Order Number: [id number] Exam Date: 05/30/2024 15:15 Report Date: 05/31/2024 09:02 At the request of: KATELYN MORATAYA Procedure: MR lumbar spine wo con EXAMINATION: MR lumbar spine wo con HISTORY: Intervertebral Disc Degeneration, Spondylosis COMPARISON: XR lumbar spine 02/07/2024 TECHNIQUE: A variety of imaging planes and parameters were utilized for visualization of suspected pathology. FINDINGS: For the purposes of numbering, sagittal T2 image # 9 extends from the T11 vertebral body superiorly to the S4 level inferiorly. PARASPINAL AREA: Normal with no visible mass. BONES: No fracture, pars defect, or osseous lesion. CORD/CAUDA EQUINA: Normal caliber, contour, and signal intensity. DISC LEVELS: 12-L1: No significant disc/facet abnormality, spinal stenosis, or foraminal stenosis. L1-L2: No significant disc/facet abnormality, spinal stenosis, or foraminal stenosis. L2-L3: Moderate left foramen narrowing. Mild right foramen narrowing. No significant central canal narrowing. Mild diffuse disc bulging and moderate disc height reduction. Mild degenerative facet arthropathy, left greater than right. L3-L4: Mild-moderate left foramen narrowing. No significant right foramen or central canal narrowing. Mild diffuse disc bulging eccentric to the left. Moderate-marked disc height reduction. Mild degenerative facet arthropathy bilaterally. L4-L5: Moderate right, mild left foramen narrowing. No significant central canal narrowing. Moderate diffuse disc bulging slightly eccentric to the right. Moderate- marked disc height reduction. Moderate degenerative facet arthropathy. L5-S1: Mild right foramen narrowing. No significant central canal or left foramen narrowing. Mild diffuse disc bulging without disc at reduction. Mild degenerative facet arthropathy on the right. MR/MR lumbar spine wo con IMPRESSION: 1. L2-L3 moderate left foramen narrowing secondary to degenerative disc disease and facet arthropathy. 2. L4-L5 moderate right foramen narrowing. Secondary to degenerative disc disease and facet arthropathy Electronically authenticated by: ÁNGEL ANTHONY Date: 05/31/2024 09:02
--- OUTSIDE RECORDS SUMMARY | 2024-05-30 14:50 | XMS_ITS | CCD ---
Author Organization [facility] CliniSyvt Care Team Providers Care Help Desk Assistant Name Role Phone ERWIN DYE Attending Unavailable Abbass, Rami Unavailable Unavailable Unknown, Referring Provider Unavailable Unav ailable Abbass, Rami Unavailable Unavailable Chaya PAUL, Rami Unavailable Unavailable Unknown, Referring Provider Unavailable Unav ailable Raquel PAUL, Jyoti Lugo Primary Care Provider Raquel PAUL, Jyoti Lugo Primary Care Provider Raquel PAUL, Jyoti Lugo Primary Care Provider [phone] MD Enrrique Grant Attending Provider [phone] MD Jameel Manzanares Primary Care Provider Enrrique [...] Unavailable NADERER, DR JAMEEL Ellis Consulting Unavailable MARQUIS PETERSEN Consulting Unavailable NADERER, DR JAMEEL Ellis Primary Care Unavailable MARQUIS PETERSEN Attending Unavailable MARQUIS PETERSEN Admitting Unavailable KARASIK ., DR MADRID [...] Calix Unavailable TIMMIS, SHAAN H Attending Unavailable CALIX SHARONDA Referring Unavailable Timmis, Shaan H Admitting Unavailable Timmis, Shaan H Attending Unavailable Timmis, Shaan H Referring Unavailable TIMMIS, SHAAN H Attending Unavailable Viridiana PAUL, Jim Mckay Attending Unavailable GUILLEMARQUIS Rock Attending Unavailable RUBI YOO Attending Unavailable JOSE VILLALOBOS Attending Unavailable KEVIN, KARLOS Referring Unavailable KEVIN, KARLOS Referring Unavailable KEVIN, KARLOS Referring Unavailable GUILLE, MARQUIS Referring Unavailable GUILLE, MARQUIS Referring Unavailable GUILLE, MARQUIS Referring Unavailable KEVIN, KARLOS Referring Unavailable GUILLE, MARQUIS Referring Unavailable KEVIN, KARLOS Referring Unavailable KEVIN, KARLOS Referring Unavailable KEVIN, KARLOS Referring Unavailable Allergies Allergy Classification Reported Allergen(s) Allergy Type Date of Onset Reaction(s) Facility Prochlorperazine (1 source) Prochlorperazine [facility] Work Phone: Sulfonamides (antibiotic) (1 source) Sulfonamides (Antibiotic) Drug Allergy [facility] Work Phone: (5 sources) Hydroxychloroquine; 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: [HYDROXYCHLOROQUINE SULFATE] Drug Allergy 006 Rash [facility] Repository (8 sources) Sulfonamides (Antibiotic); 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: [SULFA (SULFONAMIDE ANTIBIOTICS)] Propensity to adverse reactions to drug (disorder) Unknown Reaction [facility] Repository (6 sources) AMOXICILLIN-POT CLAVULANATE; 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: [AMOXICILLIN-POT CLAVULANATE] Propensity to adverse reactions to drug (disorder) 019 Rash [facility] Repository (5 sources) PROCHLORPERAZINE EDISYLATE; 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: [PROCHLORPERAZINE EDISYLATE] Propensity to adverse reactions to drug (disorder) 006 [facility] Repository (4 sources) Sulfonamides (Antibiotic) drug [facility] Work Phone: (1 source) drug allergy [facility] [place] Work Phone: (13 sources) Prochlorperazine; 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: [Compazine] Drug Allergy Unknown [facility] Repository (6 sources) Prochlorperazine; 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: [PROCHLORPERAZINE] Drug Allergy 006 Other: See Comments [facility] (5 sources) traMADol; 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: [TRAMADOL] Drug Allergy 019 Intolerance, GI Upset [facility] (1 source) Prochlorperazine Drug Allergy 023 [facility] Repository (9 sources) Sulfacetamide / Sulfur Drug Allergy Unknown [employer] Other (1 source) Sulfonamides (Antibiotic) Drug allergy (disorder) [facility] Repository (1 source) Hydroxychloroquine; 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: [HYDROXYCHLOROQUINE ] Drug Allergy 006 [facility] Repository Medications Current Medications Medication Drug Class(es) Dates Sig (Normalized) Sig (Original) [id number] actuat albuterol 0.09 mg/actuat metered dose [...] DAY NEEDED for 20 Aug, Active Start: 12-19-2023 take 1 tablet by mali th three [...] 03-28-2017 take 1 capsule by mo [facility] once daily Cholecalciferol, Vitamin D3, 2,000 [...] sources) Start: 07-29-2022 [facility] Magnesium Active 1 TAB PO [...] TAB PO Daily July 29, 2022 12:00am Phelps 3 (9 sources) Phelps 3 Active Phelps-3 Fatty Acids (1 source) Start : 07-29 take 1000 mg by mouth once daily Phelps-3 Fatty Acids Active 1000 MG PO Daily [...] Comment on above: TAKE 1 CAPSULE BY [facility] EVERY DAY travoprost (13 sources) Prostaglandin Analog [...] ophthalmic solution (3 sources) alpha-Adrenergic Agonist, beta-Adrenergic Mriian Start: 06-30-2020 Brimonidine-Timolol (COMBIGAN) 0.2-0.5 % Use [...] above: Take 1 capsule by mo [facility] daily at bedtime for 30 days. [...] needed. Take 1 capsule by mo [facility] once daily. MV with Mwb-Sxekdsro-Qarklu (CENTRUM SILVER) 0.4-300-250 mg-mcg-mcg tab (1 source) Start: 07-07-19 21 take 1 tablet by mouth once daily MV with Apq-Nkbqaczn-Extihd (CENTRUM SILVER) 0.4-300-250 mg-mcg-mcg tab Take 1 [...] above: Take 1 capsule by mo ut daily at bedtime. 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 CURRENT DRUG THERAPY] Onset: 2 Episodic Other [...] neoplasm of other organs or systems; 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: [[facility] HX [facility] NEOPLASM OTH ORGN/SYS] Onset: 2 Episodic Residual codes; unclassified (1 source) Family history of malignant neoplasm of trachea, bronchus and lung; 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: [[facility] BRON [facility]NG] Onset: 2 Episodic Residual codes; unclassified (1 source) Family history of malignant neoplasm of digestive organs; 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: [[facility] HX [facility] NEOPLASM DIGESTIV ORGN] Onset: 2 Episodic [...] she should continue. She verbalized understanding. Normal [facility] Office Visiton 02-28-2024 Follow-up visit [id number] Marly Jaffe 1955 F Date Provider Department Center 02/28/2024 MARQUIS FRIEDMAN CHELSEY Hfofman Family History Problem Relation Age of Onset Stroke Mother Hypertension Mother Cancer Mother Stroke Father Other Father Family Status - Relation Status Age at Mother Father Level of Service:71645 OR OFFICE/OUTPATIENT ESTABLISHED LOW MDM 20 MIN Normal [facility] Office Visiton 12-01-2023 Follow-up visit [id number] Marly Jaffe 1955 F Date Provider Department Center 12/01/2023 [id number] YOO Family History Problem Relation Age of Onset Stroke Mother Hypertension Mother Cancer Mother Stroke Father Other Father Family Status - Relation Status Age at Mother Father Level of Service:73888 OR OFFICE/OUTPATIENT NEW LOW MDM 30 MINUTES Normal [facility] CT Maxillofacial w/o Contras ton 08-19-2023 [...] MD Transcribed by: CHRISTIAN Technologist: MARTELL Normal [facility] Consent for Treatmenton 08-04 Consent for Treatment [id number] #1.00TIFF Normal [facility] Physician Orderon 07-08-2023 Physician Order [id number] #1.00TIFF [facility] Office Visiton 06-20-2023 Follow-up visit [id number] Marly Jaffe 1955 F Date Provider Department Center 06/20/2023 Abraham-JOSE VILLALOBOS CARD [facility] Family History Problem Relation Age of Onset Stroke Mother Hypertension Mother Cancer Mother Stroke Father Other Father Family Status - Relation Status Age at Mother Father Level of Service:[id number] OR OFFICE/OUTPATIENT ESTABLISHED MOD MDM 30 MIN Normal [facility] CT LUNG CANCER SCREENINGon 0 08-04-2022 [...] ÁNGEL PUGH Date: 2022-08-04 14:41 Normal [facility] XR RIBS BIL_PA CH 4V OR [...] by: ÁNGEL PUGH Date: 2022-08-04 14:45 Normal [facility] XR TSPINE MIN 4 VIEWSon XR [...] by: ÁNGEL PUGH Date: 2022-08-04 14:42 Normal [facility] Desean 07-29-2022 L Specimen: [id number] Received: 07/29/22 Status: HUY Dinah Num: [id number] Spec Type: Surgical Subm Dr: Enrrique Grant MD Tissues: A Colon Biopsy (POLYP SIGMOID) Procedures: BRYAN Gross/Micro L4 Age/ Patient Sex Location Account Attending Physician Marly Jaffe 67/F [id number] Enrrique Grant MD SPEC NUM: [id number] RECD: 07/29/22 STATUS: HUY DINAH NUM: [id number] SALOMON: 07/29/22- [facility] DR: Enrrique Grant MD ENTERED: 07/29/[address]: SPEC TYPE: Surgical DEPT: S ORDERED: HE/2, Gross/Micro L4 ORDERED: , Gross/Micro L4 Pathological Diagnosis Colon, sigmoid, polypectomy: [...] support the above pathologic diagnosis. CPT Codes 24166 Specimen: [id number] Received: 07/29/22 Status: HUY Malonewinifred Num: [id number] Spec Type: Surgical Subm Dr: Enrrique Grant MD Tissues: A Colon Biopsy (POLYP SIGMOID) Procedures: ANGELICA, Gross/Micro L4 Patient: Marly Jaffe [id number] (Continued) Signed (signature on file) Benjamin Wolf MD 07/30/22 1133 [facility] ECHOCARDIO M/2D COMPLETEon 0 07-13-2022 ECHOCARDIO M/2D COMPLETE Patient: MARLY JAFFE Exam Date: 07/13/2022 : 1955 Gender:F Ordering : MARQUIS ElvaTeddy PETERSEN Admission #: [id number] Family : Order #: [id number] CLICK HERE TO VIEW EXAM ECHOCARDIOGRAM REPORT [...] Mak M.D. on 07/15/2022 at 10:33 Normal [facility] MAMM SCREEN 3D LAWRENCE CADon 06-23-2022 MG MAMM SCREEN 3D LAWRENCE CAD Patient: MARLY JAFFE Exam Date: 06/23/2022 : 1955 Gender:F Ordering : DR MERCY MORGAN . Admission #: [id number] Family : Order #: [id number] CLICK HERE TO VIEW EXAM RADIOLOGY REPORT [...] colon cancer at age 51. LOCATION: [facility] BREAST COMPOSITION: Scattered areas fibroglandular density. [...] Pugh M.D. on 06/23/2022 at 14:39 Normal [facility] PAP ACOG PANEL 2: 30 to 65on 06-23-2022 . . Normal [facility] Comment on above: Performed By: #### 4 [id number] #### [facility] [address] [place] [address] Dr. Jeramy Dumont Age Gdln ACOG Testing Comment Normal [facility] Comment on above: Result Comment: <21 or >65 or no age provided Performed By: #### 4 [id number] #### [facility] [address] [place] [address] Dr. Jeramy Dumont DIAGNOSIS: Comment Normal [facility] Comment on above: Result Comment: NEGA TIVE FOR INTRAEPITHELIAL LESION OR MALIGNANCY. REACTIVE CELLULAR CHANGES AND/OR REPAIR ARE PRESENT. Performed By: #### 4 [id number] #### [facility] [address] [place] [address] Dr. Jeramy Dumont Electronically signed by: Comment Normal [facility] Comment on above: Result Comment: Bere Aguilar MD, Pathologist Performed By: #### 4 [id number] #### [facility] [address] [place] [address] Dr. Jeramy Dumont Methodology: Comment Normal [facility] Comment on above: Result Comment: This liquid based ThinPrep(R) pap test was screened with the use of an image guided system. Performed By: #### 4 [id number] #### [facility] [address] [place] [address] Dr. Jeramy Dumont Note: Comment Normal [facility] Comment on above: Result Comment: The Pap smear is a screening test designed to aid in the detection of premalignant and malignant conditions of the uterine cervix. It is not a diagnostic procedure and should not be used as the sole means of detecting cervical cancer. Both false-positive and false-negative reports do occur. . Performed By: #### 4 [id number] #### [facility] [address] [place] [address] Dr. Jeramy Dumont Performed by: Comment Normal [facility] Comment on above: Result Comment: Norma Mancia Group Rooms Coordinator (ASCP) Performed By: #### 4 [id number] #### [facility] [address] [place] [address] Dr. Jeramy Dumont Specimen adequacy: Comment Normal [facility] Comment on above: Result Comment: Sati sfactory for evaluation. Endocervical and/or squamous metaplastic cells (endocervical component) are present. Performed By: #### 4 [id number] #### [facility] [address] [place] [address] Dr. Jeramy Dumont XR DEXA BONE DENSITYon 12-21 -2022 XR DEXA BONE DENSITY EXAMINATION: XR DEX [...] by: ÁNGEL PUGH Date: 2022-06-23 11:46 Normal [facility] CBC AUTO DIFFon 04-27-2022 BASO # 0.1 103/ul Normal 0.0-0.1 [facility] Comment on above: Performed By: #### C BC ####[facility] [address] [place], [place] [address]DrTeddy Dumont Basophils/100 WBC (Bld) 0.6 % Normal 0.2-2.0 [facility] Comment on above: Performed By: #### C BC ####[facility] [address] [place], [place] [address]DrTeddy Dumont EO # 0.2 103/ul Normal 0.0-0.7 [facility] Comment on above: Performed By: #### C BC ####[facility] [address] [place] [address]DrTeddy Dumont Eosinophils/100 WBC (Bld) 1.9 % Normal 0.9-7.0 [facility] Comment on above: Performed By: #### C BC ####[facility] [address] [place], [place] [address]DrTeddy Dumont Erythrocyte distribution width (RBC) [Ratio] 13.3 % Normal 11.0-15.0 [facility] Comment on above: Performed By: #### C BC ####[facility] [address] [place], [place] [address]Dr. Yilaura Dumont Hematocrit (Bld) [Volume fraction] 41.1 % Normal 36.0-48.0 [facility] Comment on above: Performed By: #### C BC ####[facility] [address] [place] [address]Dr. Moniquelaura Dumont Hemoglobin (Bld) [Mass/Vol] 13.4 g/dL Normal 12.0-16.0 [facility] Comment on above: Performed By: #### C BC ####[facility] [address] [place] [address]Dr. Jeramy Dumont IG # 0.02 10e3/ul Normal 0.00-0.03 [facility] Comment on above: Performed By: #### C BC ####[facility] [address] [place], [place] [address]Dr. Jeramy Dumont IG % 0.2 % Normal 0.0-0.5 [facility] Comment on above: Performed By: #### C BC ####[facility] [address] [place], [place] [address]Dr. Jeramy Dumont LYMPH # 3.2 103/ul Normal 1.2-3.8 [facility] Comment on above: Performed By: #### C BC ####[facility] X[address] [place], [place] [address]Dr. Jeramy Dumont Lymphocytes/100 WBC (Bld) 39.1 % Normal 20.5-60.0 [facility] Comment on above: Performed By: #### C BC ####[facility] [address] [place], [place] [address]Dr. Jeramy Dumont MANUAL DIFF REQ NO Normal [facility] Comment on above: Performed By: #### C BC ####[facility] [address] [place], [place] [address]Dr. Jeramy Dumont MCH (RBC) [Entitic mass] 30.7 pg Normal 26.7-34.0 [facility] Comment on above: Performed By: #### C BC ####[facility] [address] [place], [place] [address]Dr. Jeramy Dumont MCHC (RBC) [Mass/Vol] 32.6 g/dL Normal 29.9-35.2 [facility] Comment on above: Performed By: #### C BC ####[facility] [address] [place], [place] [address]Dr. Jeramy Dumont MCV (RBC) [Entitic vol] 94.3 fL Normal 81.0-99.0 [facility] Comment on above: Performed By: #### C BC ####[facility] [address] [place], [place] [address]Dr. Jeramy Dumont MONO # 0.6 103/ul Normal 0.3-0.8 [facility] Comment on above: Performed By: #### C BC ####[facility] [address] [place], [place] [address]Dr. Jeramy Dumont Monocytes/100 WBC (Bld) 6.6 % Normal 1.7-12.0 [facility] Comment on above: Performed By: #### C BC ####[facility] [address] [place], [place] [address]Dr. Jeramy Dumont NEUT # 4.3 103/ul Normal 1.4-6.5 [facility] Comment on above: Performed By: #### C BC ####[facility] [address] [place], [place] [address]Dr. Jeramy Dumont Neutrophils/100 WBC (Bld) 51.6 % Normal 43.0-75.0 [facility] Comment on above: Performed By: #### C BC ####[facility] [address] [place], [place] [address]Dr. Jeramy Dumont Platelet mean volume (Bld) [Entitic vol] 9.8 fL Normal 9.5-13.5 [facility] Comment on above: Performed By: #### C BC ####[facility] [address] [place], [place] [address]Dr. Jeramy Dumont PLT 283 103/ul Normal 150-450 [facility] Comment on above: Performed By: #### C BC ####[facility] [address] [place], [place] [address]Dr. Jeramy Dumont RBC 4.36 106/ul Normal 4.20-5.40 [facility] Comment on above: Performed By: #### C BC ####[facility] [address] [place] [address]Dr. Moniquelaura Dumont WBC 8.3 103/ul Normal 4.0-11.0 [facility] Comment on above: Performed By: #### C BC ####[facility] [address] [place] [address]Dr. Jeramy Dumont FREE T3on 04-27-2022 FREE T3 2.20 pg/mlL Normal 2.18-3.98 [facility] Comment on above: Performed By: #### F T3, TSH, BMP, LIVER ####[facility] [address] [place] [address]Dr. Jeramy Dumont FREE T4on 04-27-2022 Free T4 [Mass/Vol] 0.96 ng/dL Normal 0.76-1.46 [facility] Comment on above: Performed By: #### F T4 ####[facility] [address] [place] [address]Dr. Jeramy Dumont LIVER PROFILEon 04-27-2022 Albumin [Mass/Vol] 3.7 g/dL Normal 3.4-5.0 [facility] Comment on above: Performed By: #### F T3, TSH, BMP, LIVER #### [facility] [address] [address] [address] Jeramy Dumont Albumin/Globulin [Mass ratio] 1.1 {ratio} Normal [facility] Comment on above: Performed By: #### F T3, TSH, BMP, LIVER #### [facility] [address] [address] [address] Jeramy Dumont ALP [Catalytic activity/Vol] 64 U/L Normal 46-116 [facility] Comment on above: Performed By: #### F T3, TSH, BMP, LIVER #### [facility] [address] [address] [address] Jeramy Dumont ALT [Catalytic activity/Vol] 28 U/L Normal 14-59 [facility] Comment on above: Performed By: #### F T3, TSH, BMP, LIVER #### [facility] [address] [place] [address] Dr. Jeramy Dumont AST [Catalytic activity/Vol] 16 U/L Normal 15-37 [facility] Comment on above: Performed By: #### F T3, TSH, BMP, LIVER #### [facility] [address] [place] [address] Dr. Jeramy Dumont BILI, CONJUGATED 0.1 mg/dL Normal 0.0-0.2 [facility] Comment on above: Performed By: #### F T3, TSH, BMP, LIVER #### [facility] [address] [place] [address] Dr. Jeramy Dumont Bilirubin [Mass/Vol] 0.2 mg/dL Normal 0.2-1.0 [facility] Comment on above: Performed By: #### F T3, TSH, BMP, LIVER #### [facility] [address] [place] [address] Dr. Jeramy Dumont Globulin (S) [Mass/Vol] 3.5 g/dL Normal T [facility] Comment on above: Performed By: #### F T3, TSH, BMP, LIVER #### [facility] [address] [place] [address] Dr. Jeramy Dumont Protein [Mass/Vol] 7.2 g/dL Normal 6.4-8.2 [facility] Comment on above: Performed By: #### F T3, TSH, BMP, LIVER #### [facility] [address] [place] [address] Dr. Jeramy Dumont PROF CHEM 8 (BAS METB)on Anion gap [Moles/Vol] 10.3 mmol/L Normal [facility] Comment on above: Performed By: #### F T3, TSH, BMP, LIVER #### [facility] [address] [place] [address] Dr. Jeramy Dumont Calcium [Mass/Vol] 9.0 mg/dL Normal 8.5-10.1 [facility] Comment on above: Performed By: #### F T3, TSH, BMP, LIVER #### [facility] [address] [address] [address] Jeramy Dumont Chloride [Moles/Vol] 105 mmol/L Normal 98-107 [facility] Comment on above: Performed By: #### F T3, TSH, BMP, LIVER #### [facility] [address] [address] [address] Jeramy Dumont CO2 [Moles/Vol] 30.7 mmol/L Normal 21.0-32.0 [facility] Comment on above: Performed By: #### F T3, TSH, BMP, LIVER #### [facility] [address] [address] [address] Jeramy Dumont Creatinine [Mass/Vol] 0.85 mg/dL Normal 0.55-1.02 [facility] Comment on above: Performed By: #### F T3, TSH, BMP, LIVER #### [facility] [address] [address] [address] Jeramy Dumont EGFR-AF [place] ISLANDER >60 Normal >=60 [facility] Comment on above: Performed By: #### F T3, TSH, BMP, LIVER #### [facility] [address] [address] [address] Jeramy Dumont EGFR-NON AF [place]LANDER >60 Normal >=60 [facility] Comment on above: Performed By: #### F T3, TSH, BMP, LIVER #### [facility] [address] [address] [address] Jeramy Dumont Glucose [Mass/Vol] 101 mg/dL Normal 74-106 [facility] Comment on above: Performed By: #### F T3, TSH, BMP, LIVER #### [facility] [address] [address] [address] Jeramy Dumont Potassium [Moles/Vol] 4.0 mmol/L Normal 3.5-5.1 [facility] Comment on above: Performed By: #### F T3, TSH, BMP, LIVER #### [facility] [address] [address] [address] Jeramy Dumont Sodium [Moles/Vol] 142 mmol/L Normal 136-145 [facility] Comment on above: Performed By: #### F T3, TSH, BMP, LIVER #### [facility] [address] [place], [place] [address] Dr. Jeramy Dumont Urea nitrogen [Mass/Vol] 15.0 mg/dL Normal 7.0-18.0 [facility] Comment on above: Performed By: #### F T3, TSH, BMP, LIVER #### [facility] [address] [place], [place] [address] Dr. Jeramy Dumont Urea nitrogen/Creatinine [Mass ratio] 17.6 mg/mg Normal [facility] Comment on above: Performed By: #### F T3, TSH, BMP, LIVER #### [facility] [address] [place], [place] [address] Dr. Jeramy Dumont TSHon 04-27-2022 TSH 0.960 uIU/mL Normal 0.358-3.740 [facility] Comment on above: Performed By: #### F T3, TSH, BMP, LIVER ####[facility] [address] [place], [place] [address]ZvDr. Jeramy Dumont Covid-19 PCR (CVDTB)on 10-03 SARS-CoV-2 (COVID-19) RNA TRAVON+probe Ql (Unsp spec) Not detected Normal NOT DETECTED [facility] Comment on above: Result Comment: This test is not yet approved or cleared by the [place] FDA. When there are no FDA-approved or cleared tests available, and other criteria are met, FDA can make tests available under an emergency access mechanism called an Emergency Use Authorization (EUA). The EUA for this test is supported by the [place] of Health and Human Service's (HHS's) declaration [...] consistent with SARS-CoV-2. Performed By: #### C [facility] ####[facility] [address] [place], [place] [address]YeTeddy Dumont Established Visit (Gastroent erology)on 04-30-2020 Established Visit (Gastroenterology) Diagnoses/Problems Assessed Chronic idiopathic constipation (564.00) (K59.04) Esophageal reflux (530.81) (K21.9) Orders Chronic idiopathic constipation Start: Amitiza 8 MCG Oral Capsule; Take 1 capsule twice daily Rx By: Krzysztof Larkin; Dispense: 0 Days ; #:60 Capsule; Refill: 1;For: Chronic idiopathic constipation; ASHLYN = N; [id number]; Last Updated By: [employer]; 04/30/2020 1:37:03 PM Esophageal reflux Renew: Omeprazole 20 MG Oral Capsule Delayed Release; TAKE 1 CAPSULE DAILY Rx By: Krzysztof Larkin; Dispense: 0 Days ; #:90 Capsule; Refill: 1;For: Esophageal reflux; ASHLYN = N; [id number]; Last Updated By: [employer]; 04/30/2020 1:37:11 PM Patient Discussion/Summary Change omeprazole [...] Daily Oral Tablet Vitals Vital Signs Recorded: [id number] 01:17PM Cmlkuuhbire16 F Height5 ft 3 in Pgsccf619 lb BMI Kqsdlntqgh20.74 BSA Calculated1.63 Physical Exam Constitutional General appearance: [...] Apr 30 2020 1:41PM EST (Author) Normal [employer] MRI BRAIN WO/W IVCONon 02-13 [facility] C-Reactive Proteinon 019 CRP mass conc mg/L Normal 0.0-0.4 [facility] Comment on above: Performed By: #### C BCDIF, CRP #### [address], [place] [address] #### WSR #### [facility] [employer] [phone] CBC and Differentialon 10-31 Abs Baso 0.05 k/uL Normal <0.11 [facility] Comment on above: Performed By: #### C BCDIF, CRP #### [address], [place] [address] #### WSR #### [facility] [phone] Abs [place] 0.49 k/uL Normal <0.87 [facility] Comment on above: Performed By: #### C BCDIF, CRP #### [phone] #### WSR #### [facility] [phone] Abs Neut 6.28 k/uL Normal 1.45-7.50 [facility] Comment on above: Performed By: #### C BCDIF, CRP #### [address] [place] [address] #### WSR #### [facility] [address] [place] [address] Absolute nRBC <0.01 Normal <0.01 [facility] Comment on above: Performed By: #### C BCDIF, CRP #### [address] [place] [address] #### WSR #### [place] [address] [place] [phone] Basophils/100 WBC (Bld) 0.6 % Normal [facility] Comment on above: Performed By: #### C BCDIF, CRP #### [address] [place] [address] #### WSR #### [place] [address] [place] [address] DTYPE Auto Diff [facility] Comment on above: Performed By: #### C BCDIF, CRP #### [address] [place] [address] #### WSR #### [facility] [address] [place] [phone] Eosinophils #/vol (Bld) 0.08 10*3/uL Normal <0.46 [facility] Comment on above: Performed By: #### C BCDIF, CRP #### [address] [place] [address] #### WSR #### [facility] [address] [phone] Eosinophils/100 WBC (Bld) 0.9 % Normal [facility] Comment on above: Performed By: #### C BCDIF, CRP #### [address] [place] [address] #### WSR #### [facility] [address] [place] [phone] Erythrocyte distribution width Ratio (RBC) 13.5 % Normal 11.5-15.0 [facility] Comment on above: Performed By: #### C BCDIF, CRP #### [address] [place] [address] #### WSR #### [place] [address] [place] [phone] Hematocrit Volume Fraction (Bld) 42.3 % Normal 36.0-46.0 [facility] Comment on above: Performed By: #### C BCDIF, CRP #### [address] [place] [address] #### WSR #### [place] [phone] Hemoglobin mass conc (Bld) 14.0 g/dL Normal 11.5-15.5 [facility] Comment on above: Performed By: #### C BCDIF, CRP #### [address] [place] [address] #### WSR #### [place] [address] [place] [phone] Lymphocytes #/vol (Bld) 2.07 10*3/uL Normal 1.00-4.00 [facility] Comment on above: Performed By: #### C BCDIF, CRP #### [address] [place] [address] #### WSR #### [place] [address] [place] [address] Lymphocytes/100 WBC (Bld) 23.1 % Normal [facility] Comment on above: Performed By: #### C BCDIF, CRP #### [address] [place] [address] #### WSR #### [facility] [address] [place], [place] [address] MCH Entitic mass (RBC) 31.1 pG Normal 26.0-34.0 [facility] Comment on above: Performed By: #### C BCDIF, CRP #### [address] [place] [address] #### WSR #### [facility] [address] [place], [place] [address] MCHC mass conc (RBC) 33.1 g/dL Normal 30.5-36.0 [facility] Comment on above: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 cancer [Z80.0] 03/28/2017 Smoker [F17.200] 05/03/2017 Bilateral wrist pain [M25.531, M25.532] 07/14/2017 Encounter Status:Closed by EPIC, PRODUSER on 06/21/22[facility] 05-07-2022 Miscellaneous Notes* Telephone Encounter - Judy Patel MA - 05/07/2022 7:21 AM EDT Pharmacy escribed requesting the following refill. Requested Prescriptions Pending Prescriptions Disp Refills omeprazole (PRILOSEC) 20 mg capsule [Pharmacy Med Name: OMEPRAZOLE DR 20 MG CAPSULE] 90 capsule 1 Sig: TAKE 1 CAPSULE BY MOUTH EVERY DAY Patient last appointment: 08/13/2020 Patient Phone numbers: [phone] (home) Request is for script(s) to be escript to pharmacy. Judy Patel MA documented in [facility] encounter[facility]22 NoteCONSULTATION CONSULTATION DATE: 02/10/2022 This [...] changes in the weather. 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 She denies any [...] time and the patient is in agreement.[facility]agn[facility]21-[facility]-8510 NoteCONSULTATION CONSULTATION DATE: 11/26/2021 HISTORY OF PRESENT [...] and Approved by: SWEETIE ROBERTS . 12/03/2021 16:05:00[facility]08-13-2020 History of Present illness Narrative* Gail [...] 9:41 AM documented in this encounter[facility] History of Past illness Narrative* Problem Noted Date Resolved Date Screening breast examination 06/05/2012 Chest pain 09/17/2011 05/03/2013 Abnormal mammogram 08/02/2011 11/04/2017 Screening breast examination 03/30/2011 Colon cancer screening 03/03/2009 2 Degeneration of lumbar or lumbosacral interverte bral disc 01/24/2009 10/22/2013 Dyspareunia 11/04/2017 Tobacco user 05/03/2013 documented as of this encounter (statuses as of 02/01/2022) [facility]12-[facility]-2012 History of Past illness Narrative* Problem Noted Date Resolved Date Screening breast examination 06/05/2012 Chest pain 09/17/2011 05/03/2013 Abnormal mammogram 08/02/2011 11/04/2017 Screening breast examination 03/30/2011 Colon cancer screening 03/03/2009 2 Degeneration of lumbar or lumbosacral interverte bral disc 01/24/2009 10/22/2013 Dyspareunia 11/04/2017 Tobacco user 05/03/2013 documented as of this encounter (statuses as of 05/07/2022) [facility]12[facility] History of Past illness Narrative* Problem Noted Date Resolved Date Screening breast examination 06/05/2012 Chest pain 09/17/2011 05/03/2013 Abnormal mammogram 08/02/2011 11/04/2017 Screening breast examination 03/30/2011 Colon cancer screening 03/03/2009 2 Degeneration of lumbar or lumbosacral interverte bral disc 01/24/2009 10/22/2013 Dyspareunia 11/04/2017 Tobacco user 05/03/2013 documented as of this encounter (statuses as of 06/21/2022) [facility] History of Past illness Narrative* Problem Noted Date Diagnosed Date Resolved Date Screening breast examination 06/05/2012 05/03/2013 Chest pain 09/17/2011 05/03/2013 Abnormal mammogram 08/02/2011 8 Screening breast examination 03/30/2011 08/02/2011 Colon cancer screening 03/03/200908/02 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 01/24/2009 10/22/2013 Dyspareunia 11/04/2017 Tobacco user 05/03/2013 documented as of this encounter (statuses as of 05/08/2023) [facility] + Plan note No data available for this section [facility] Diagnosis Encounter for screening mammogram for breast cancer documented in this encounter [facility] note* Diagnosis Onset Date Resolution Status Encounter for screening colonoscopy [facility] Work Phone: Evaluation note* Diagnosis Chronic mixed headache syndrome Other headache syndromes documented in this encounter [facility] noteNo [email or web address] Other Hospital Discharge instructions Additional Instructions DISCHARGE [...] kiwi fruit Repeat colonoscopy in 5 years [facility] 1 p.o. every morning -Notify the doctor if you have any problems. -Office number [phone] Work Phone: Hospital Discharge instructions No data available for this section [facility]* Name Dates Details Instructions not documented -[facility] Work Phone: Progress note No data available for this section [facility] HospitalReason for referral (narrative)* Diagnostic Procedure Only (Routine) - Pending Review Specialty Diagnoses / Procedures Referred By Zaid gutiérrez Referred To Contact [facility] Diagnoses Encounter for screening mammogram for breast cancer Procedures DOLORES SCREENING SCREENING MAMMOGRAPHY BI 2-VIEW BREAST INC CAD Jyoti García [place] [id number] [place] [address] [facility] [address] [place] [address] Referral ID Status Reason Start Date Expiration Date Visits Requested Visits Authorized [id number] Pending Review Auto-Generat ed Referral 2 07/16/2023 1 1 [facility] for referral (narrative)* Diagnostic Procedure Only (Routine) - Closed Specialty Diagnoses / Procedures Referred By Zaid gutiérrez Referred To Contact [facility] IMAGING Diagnoses Chronic mixed headache syndrome G44.89 (ICD-10-CM) - Chronic mixed headache syndrome Procedures MRI BRAIN WO/W IVCON MRI BRAIN COMBO MRI BRAIN WO/W IVCON Jyoti García [place] [id number] [place] [address] Mr Imaging [facility]95 Referral ID Status Reason Start Date Expiration Date V isits Requested Visits Authorized [id number] Closed Auto-Generate d Referral 02/11/2020 07/03/2020 1 1 [facility] Summary Purpose Family History No Family History Records Found Relationship Condition Age at Onset Recorded Date/T bishop brother Malignant neoplasm of colon Unknown sister Malignant neoplasm of bone Unknown sister Malignant neoplasm of pancreas Unknown Advance Directives No Advanced Directives Records FoundDocuments on File Type Date Recorded Patient Barista Expl anation Advance Directive(s) 10/31/2018 9:16 AM Advance Directive(s) 12/04/2012 9:42 PM Advance Directive(s) 11/29/2012 9:09 PM Documents on File Type Date Recorded Patient Barista Expl anation Advance Directive(s) 12/04/2012 9:42 PM Advance Directive(s) 11/29/2012 9:09 PM Documents on File Type Date Recorded Patient Barista Expl anation Advance Directive(s) 12/04/2012 9:42 PM [...] Diagnosis 1 Post-nasal drainage (R09.82) Referral Organization [facility] kaylah Referring Provider First Name Sharonda Referring Provider Last Name Michele Referring Provider Specialty Family [facility] Referred Organization [facility] Referred Provider Shaan Villalta Referred Address ,[place], [place],[address] Referred Provider Specialty Ear, Nose an d Throat Referral Priority Routine General Notes Inessa Vitale 02:51:01 PM >received today, notes locked, ins attached, referral faxed Additional Source Comments INFORMATION SOURCE (unrecogn ized section and content) DATE CREATED AUTHOR 11/12/2018 [facility] DATE CREATED AUTHOR AUTHOR'S ORGANIZ ATION 06/18/2019 [facility] DATE CREATED AUTHOR AUTHOR'S ORGANIZ ATION 05/01/2020 [employer] DATE CREATED AUTHOR AUTHOR'S ORGANIZ ATION 08/01/2022 [facility] DATE CREATED AUTHOR AUTHOR'S ORGANIZ ATION 10/26/2022 [facility] DATE CREATED AUTHOR AUTHOR'S ORGANIZ ATION 05/30/2023 [facility] DATE CREATED AUTHOR AUTHOR'S ORGANIZ ATION 07/07/2023 [facility] DATE CREATED AUTHOR AUTHOR'S ORGANIZ ATION 08/20/2023 [facility] DATE CREATED AUTHOR AUTHOR'S ORGANIZ ATION 09/06/2023 [facility] DATE CREATED AUTHOR AUTHOR'S ORGANIZ ATION 05/02/2024 [facility] DATE CREATED AUTHOR AUTHOR'S ORGANIZ ATION 05/28/2024 [facility] Source Comments (unrecognize d section and content) In the event this informatio n is protected by the Federal Confidentiality of Alcohol and Drug Abuse Patient Records regulations: The Federal rules restrict any use of the information to criminally investigate or prosecute any alcohol or drug abuse patient.[facility] CenterIn the event this information is protected by the Federal Confidentiality of Alcohol and Drug Abuse Patient Records regulations: The Federal rules restrict any use of the information to criminally investigate or prosecute any alcohol or drug abuse patient.[facility] CenterIn the event this information is protected by the Federal Confidentiality of Alcohol and Drug Abuse Patient Records regulations: The Federal rules restrict any use of the information to criminally investigate or prosecute any alcohol or drug abuse patient.[facility] CenterIn the event this information is protected by the Federal Confidentiality of Alcohol and Drug Abuse Patient Records regulations: The Federal rules restrict any use of the information to criminally investigate or prosecute any alcohol or drug abuse patient.[facility] Reason for Visit (unrecogniz ed section and content) Reason Comments Refill Request Reason Comments Radiology MRI Specialty Diagnoses / Procedures Referred By Contac t Referred To Contact MR IMAGING Diagnoses Chronic mixed headache syndrome G44.89 (ICD-10-CM) - Chronic mixed headache syndrome Procedures MRI BRAIN WO/W IVCON MRI BRAIN COMBO MRI BRAIN WO/W IVCON Jyoti García [place] [address] [place] [address] [place] [address] Referral ID Status Reason Start Date Expiration Date V isits Requested Visits Authorized [id number] Closed Auto-Generate d Referral 02/11/2020 07/03/2020 1 1 Care Teams (unrecognized sec tion and content) Help Desk Assistant Relationship Specialty Start Date End Date Jyoti García [place] [address] [facility] [address] PCP - General Internal Medicine 09/11/19 Help Desk Assistant Relationship Specialty Start Date End Date Jyoti García [place] [address] [place] [address] PCP - General Internal Medicine 09/11/19 Help Desk Assistant Relationship Specialty Start Date End Date Jyoti García [place] [address] [place] [address] PCP - General Internal Medicine 09/11/19 Team Status: Inactive Member Role Status Dates Enrrique Grant MD Attending Provider Active Jameel Manzanares MD Primary Care Provider Active Team Status: Active Member Role Status Dates Jameel Manzanares MD Primary Care Provider Active Help Desk Assistant Relationship Specialty Start Date [place] Jyoti García [place] [address] [place] [address] PCP - General Internal Medicine 09/11/19 FOR [...] BE BASED ON THE PRIMARY CLINICAL RECORDS. [facility] provides no warranty or guarantee of the accuracy or completeness of information in this document.
== END 2024-05-30 14:35 | disposition home or self-care (01) ==
LOC: MRI 14:34
PROVIDERS: PCP Family Medicine; Visit Provider Nurse Practitioner
DX: M51.369 Other intervertebral disc degeneration, lumbar region without mention of lumbar back pain or lower extremity pain (principal); M47.816 Spondylosis without myelopathy or radiculopathy, lumbar region; M79.10 Myalgia, unspecified site
CPT/HCPCS: 72148

== ENCOUNTER 2024-06-05 11:31 | Outpatient (OUT) | payer MEDICARE, SELFPAY ==
--- NOTE | 2024-06-05 | CONS_ITS ---
CONSULTATION DATE: 06/05/2024 TO: Estelle Bautista M.D. HISTORY: Patient returns today complaining of pain in multiple areas. She describes pain in her lower back area and upper lumbar area. She reports overall it is rated at 4-7/10 pain, deep aching in character, increased with activities such as prolonged standing, walking and performing transitioning maneuvers. She feels most comfortable in the semi-recumbent position. Denies any change in bowel and bladder habits or new sensorimotor changes in the lower extremities. CURRENT MEDICATION: Includes ibuprofen 400-600 mg b.i.d. p.r.n., baclofen 10 mg t.i.d. p.r.n. and Voltaren cream. EXAM: Notable for patient having mild dysesthesia overlying the L4 dermatome bilaterally, equivocally depressed bilateral patellar reflex. Patient had significant dysesthesia along the L4 dermatome. There are no appreciable signs consistent with myelopathy involving her lower extremities. Patient did have significant pain with lumbar axial loading maneuvers, with point tenderness overlying the L4-5 interspace. She had nothing to suggest lumbar facet loading pain on today?s visit in the low lumbar area; however, she appears to have a moderate amount of pain with lumbar facet loading maneuvers at L1-2 and L2-3, occurring bilaterally. She also had associated myofascial spasm with myalgia of the erector spinae muscle bilaterally. 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 RECOMMENDATIONS: I recommend she consider consultation with Dr. Zavala at [facility]. I recommend she consider an L4-5 lumbar epidural steroid injection under fluoroscopic guidance for her discogenic and neurogenic pain. I have asked her to change her Advil from p.r.n. to daily 400 mg b.i.d. I have gone over the details of the procedure with the patient. All her questions answered. She agrees to proceed with the outlined plan. As part of providing excellent, safe, comprehensive care, the following was completed at our patient's visit: 1. A medication reconciliation and review to ensure accurate knowledge of current/active medications, including asking our patients to inform us about any mcan-zuq-boozboi medications or herbal remedies/nutritional supplements/alternative remedies. 2. A review to specifically ensure our patients have had annual screening for: elevated body mass index (BMI, see intake chart for exact total), tobacco use, screening for depression, and screening for unhealthy alcohol use. When screening is concerning, patients are provided with education and the specific recommendation to discuss the concerning health issue and treatment options with their primary care provider. SANDI
--- OUTSIDE RECORDS SUMMARY | 2024-06-05 11:41 | XMS_ITS | CCD ---
Author Organization [facility] [employer] Care Team Providers Care Javascript Web Developer Name Role Phone ERWIN DYE Attending Unavailable [...] (1 source) Prochlorperazine Drug Allergy [facility] Work Phone: Sulfonamides (antibiotic) (1 source) Sulfonamides (Antibiotic) Drug Allergy [facility] Work Phone: (5 sources) Hydroxychloroquine; Translations: [HYDROXYCHLOROQUINE SULFATE] Drug Allergy 006 Rash [facility] Repository (8 sources) Sulfonamides (Antibiotic); Translations: [SULFA (SULFONAMIDE ANTIBIOTICS)] Propensity to adverse reactions to drug (disorder) Unknown Reaction [facility] Repository (6 sources) AMOXICILLIN-POT CLAVULANATE; Translations: [AMOXICILLIN-POT CLAVULANATE] Propensity to adverse reactions to drug (disorder) 019 Rash [facility] Repository (5 sources) PROCHLORPERAZINE EDISYLATE; Translations: [PROCHLORPERAZINE EDISYLATE] Propensity to adverse reactions to drug (disorder) 006 [facility] Repository (4 sources) Sulfonamides (Antibiotic) drug allergy [facility] Work Phone: (1 source) [facility] Work Phone: (13 sources) Prochlorperazine; Translations: [Compazine] Drug Allergy Unknown [facility] Repository (6 sources) Prochlorperazine; Translations: [PROCHLORPERAZINE] Drug Allergy 006 Other: See Comments [facility] (5 sources) traMADol; Translations: [TRAMADOL] Drug Allergy 019 Intolerance, GI Upset [facility] (1 source) Prochlorperazine Drug Allergy 023 [facility] Repository (9 sources) Sulfacetamide / Sulfur Drug Allergy Unknown [facility] Other (1 source) Sulfonamides (Antibiotic) Drug allergy (disorder) [facility] Repository (1 source) Hydroxychloroquine; Translations: [HYDROXYCHLOROQUINE ] Drug Allergy 006 [facility] Repository Medications Current Medications Medication Drug Class(es) Dates Sig (Normalized) Sig (Original) [id number] 60 actuat albuterol 0.09 mg/actuat metered dose [...] Start: 03-28-2017 take 1 capsule by mo [facility] once daily Cholecalciferol, Vitamin D3, 2,000 [...] 07-29-2022 take 1 tablet [facility] daily Magnesium Active 1 TAB [...] TAB PO Daily July 29, 2022 12:00am [place] 3 (9 sources) [place] 3 Active [place]-3 Fatty Acids (1 source) Start : 07-29 take 1000 mg by mouth once daily [place]-3 Fatty Acids Active 1000 MG PO Daily [...] on above: Take 1 capsule by mo [facility] daily at bedtime for 30 days. [...] as needed. Take 1 capsule by mo [facility] once daily. 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] Onset: 2 Episodic Other [...] neoplasm of other organs or systems; Translations: [[facility] NEOPLASM OTH ORGN/SYS] Onset: 2 Episodic Residual codes; unclassified (1 source) Family history of malignant neoplasm of trachea, bronchus and lung; Translations: [[facility]NG] Onset: 2 Episodic Residual codes; unclassified (1 source) Family history of malignant neoplasm of digestive organs; Translations: [[facility] NEOPLASM DIGESTIV ORGN] Onset: 2 Episodic [...] she should continue. She verbalized understanding. Normal [facility] Office Visiton 02-28-2024 Follow-up visit [id number] Marly Jaffe 1955 F Date Provider Department Center 02/28/2024 MARQUIS FRIEDMAN CHELSEY Hoffman Family History Problem Relation Age of Onset Stroke Mother Hypertension Mother Cancer Mother Stroke Father Other Father Family Status - Relation Status Age at Mother Father Level of Service:55890 [place] OFFICE/OUTPATIENT ESTABLISHED LOW MDM 20 MIN Normal [facility] Office Visiton 12-01-2023 Follow-up visit [id number] Marly Jaffe 1955 F Date Provider Department Center 12/01/2023 [id number] [id number] Family History Problem Relation Age of Onset Stroke Mother Hypertension Mother Cancer Mother Stroke Father Other Father Family Status - Relation Status Age at Mother Father Level of Service:62979 GA OFFICE/OUTPATIENT NEW LOW MDM 30 MINUTES Normal [facility] CT Maxillofacial w/o Contras ton [...] Transcribed by: CHRISTIAN Technologist: MARTELL Normal [facility] Consent for Treatmenton 08-04 Consent for Treatment [id number] #[id number] Normal [facility] Physician Orderon 07-08-2023 Physician Order [id number] #1.00TIFF [facility] Office Visiton 06-20-2023 Follow-up visit [id number] Marly Jaffe 1955 F Date Provider Department Center 06/20/2023 Abraham-JOSE VILLALOBOS CARD [facility] Family History Problem Relation Age of Onset Stroke Mother Hypertension Mother Cancer Mother Stroke Father Other Father Family Status - Relation Status Age at Mother Father Level of Service:12293 [place] OFFICE/OUTPATIENT ESTABLISHED MOD MDM 30 MIN Normal [facility] CT LUNG CANCER SCREENINGon 0 [...] ÁNGEL PUGH Date: 2022-08-04 14:41 Normal [facility] XR RIBS BIL_PA CH 4V OR GRon [...] by: ÁNGEL PUGH Date: 2022-08-04 14:45 Normal [facility] XR TSPINE MIN 4 VIEWSon XR TSPINE [...] by: ÁNGEL PUGH Date: 2022-08-04 14:42 Normal [facility] Desean 07-29-2022 L Specimen: [id number] Received: 07/29/22 Status: HUY Dinah Num: [id number] Spec Type: Surgical Subm Dr: Enrrique Grant MD Tissues: A Colon Biopsy (POLYP SIGMOID) Procedures: BRYAN Gross/Micro L4 Age/ Patient Sex Location Account Attending Physician Marly Jaffe 67/F [id number] Enrrique Grant MD SPEC NUM: [id number] RECD: 07/29/22 STATUS: HUY DINAH NUM: [id number] SALOMON: 07/29/22- [facility] DR: Enrrique Grant MD ENTERED: [...] support the above pathologic diagnosis. CPT Codes 69979 Specimen: [id number] Received: 07/29/22 Status: HUY Malonewinifred Num: [id number] Spec Type: Surgical Subm Dr: Enrrique Grant MD Tissues: A Colon Biopsy (POLYP SIGMOID) Procedures: ANGELICA, Gross/Micro L4 Patient: Marly Jaffe [id number] (Continued) Signed (signature on file) Benjamin Wolf MD 07/30/22 1133 [facility] ECHOCARDIO M/2D COMPLETEon 0 07-13-2022 ECHOCARDIO M/2D COMPLETE Patient: MARLY JAFFE Exam Date: 07/13/2022 : 1955 Gender:F Ordering : MARQUIS ElvaTeddy PETERSEN Admission #: [id number] Family : Order #: [id number] CLICK HERE TO VIEW EXAM ECHOCARDIOGRAM REPORT [...] Mak M.D. on 07/15/2022 at 10:33 Normal [facility] MAMM SCREEN 3D LAWRENCE CADon 06-23-2022 MG MAMM SCREEN 3D LAWRENCE CAD Patient: MARLY JAFFE Exam Date: 06/23/2022 : 1955 Gender:F Ordering : DR MERCY MORGAN . Admission #: [id number] Family : Order #: [id number] CLICK HERE TO VIEW EXAM RADIOLOGY REPORT [...] colon cancer at age 51. LOCATION: [facility] BREAST COMPOSITION: Scattered areas fibroglandular density. FINDINGS: [...] Pugh M.D. on 06/23/2022 at 14:39 Normal [facility] PAP ACOG PANEL 2: 30 to 65on 06-23-2022 . . Normal [facility] Comment on above: Performed By: #### 4 [id number] #### [facility] [address] [place] [address] Dr. Jeramy Dumont Age Gdln ACOG Testing Comment Normal [facility] Comment on above: Result Comment: <21 or >65 or no age provided Performed By: #### 4 [id number] #### [facility] [address] [place] [address] Dr. Jeramy Dumont DIAGNOSIS: Comment Normal [facility] Comment on above: Result Comment: NEGA TIVE FOR INTRAEPITHELIAL LESION OR MALIGNANCY. REACTIVE CELLULAR CHANGES AND/OR REPAIR ARE PRESENT. Performed By: #### 4 [id number] #### [facility] [address] [place] [address] Dr. Jeramy Dumont Electronically signed by: Comment Normal [facility] Comment on above: Result Comment: Bere Aguilar MD, Pathologist Performed By: #### 4 [id number] #### [facility] [address] [place] [address] Dr. Jeramy Dumont Methodology: Comment Normal [facility] Comment on above: Result Comment: This liquid based ThinPrep(R) pap test was screened with the use of an image guided system. Performed By: #### 4 [id number] #### [facility] [address] [place] [address] Dr. Jeramy Dumont Note: Comment Normal [facility] Comment on above: Result Comment: The Pap smear is a screening test designed to aid in the detection of premalignant and malignant conditions of the uterine cervix. It is not a diagnostic procedure and should not be used as the sole means of detecting cervical cancer. Both false-positive and false-negative reports do occur. . Performed By: #### 4 [id number] #### [facility] [address] [place] [address] Dr. Jeramy Dumont Performed by: Comment Normal [facility] Comment on above: Result Comment: Norma Mancia Knife Glazer (ASCP) Performed By: #### 4 [id number] #### [facility] [address] [place] [address] Dr. Jeramy Dumont Specimen adequacy: Comment Normal [facility] Comment on above: Result Comment: Sati sfactory for evaluation. Endocervical and/or squamous metaplastic cells (endocervical component) are present. Performed By: #### 4 [id number] #### [facility] [address] [place] [address] Dr. Jeramy Dumont XR DEXA BONE DENSITYon [...] by: ÁNGEL PUGH Date: 2022-06-23 11:46 Normal [facility] CBC AUTO DIFFon 04-27-2022 BASO # 0.1 103/ul Normal 0.0-0.1 [facility] Comment on above: Performed By: #### C BC ####[facility] [address] [place], [place] [address]DrTeddy Dumont Basophils/100 WBC (Bld) 0.6 % Normal 0.2-2.0 [facility] Comment on above: Performed By: #### C BC ####[facility] [address] [place], [place] [address]DrTeddy Dumont EO # 0.2 103/ul Normal 0.0-0.7 [facility] Comment on above: Performed By: #### C BC ####[facility] [address] [place] [address]DrTeddy Dumont Eosinophils/100 WBC (Bld) 1.9 % Normal 0.9-7.0 [facility] Comment on above: Performed By: #### C BC ####[facility] [address] [place], [place] [address]DrTeddy Dumont Erythrocyte distribution width (RBC) [Ratio] 13.3 % Normal 11.0-15.0 [facility] Comment on above: Performed By: #### C BC ####[facility] [address] [place], [place] [address]Dr. Yilaura Dumont Hematocrit (Bld) [Volume fraction] 41.1 % Normal 36.0-48.0 [facility] Comment on above: Performed By: #### C BC ####[facility] [address] [place] [address]Dr. Moniquelaura Dumont Hemoglobin (Bld) [Mass/Vol] 13.4 g/dL Normal 12.0-16.0 [facility] Comment on above: Performed By: #### C BC ####[facility] [address] [place] [address]Dr. Jeramy Dumont IG # 0.02 10e3/ul Normal 0.00-0.03 [facility] Comment on above: Performed By: #### C BC ####[facility] [address] [place], [place] [address]Dr. Jeramy Dumont IG % 0.2 % Normal 0.0-0.5 [facility] Comment on above: Performed By: #### C BC ####[facility] [address] [place], [place] [address]Dr. Jeramy Dumont LYMPH # 3.2 103/ul Normal 1.2-3.8 [facility] Comment on above: Performed By: #### C BC ####[facility] [address] [place], [place] [address]Dr. Jeramy Dumont Lymphocytes/100 WBC (Bld) 39.1 % Normal 20.5-60.0 [facility] Comment on above: Performed By: #### C BC ####[facility] [address] [place], [place] [address]Dr. Jeramy Dumont MANUAL DIFF REQ NO Normal [facility] Comment on above: Performed By: #### C BC ####[facility] [address] [place], [place] [address]Dr. Jeramy Dumont MCH (RBC) [Entitic mass] 30.7 pg Normal 26.7-34.0 [facility] Comment on above: Performed By: #### C BC ####[facility] [address] [place], [place] [address]Dr. Jeramy Dumont MCHC (RBC) [Mass/Vol] 32.6 g/dL Normal 29.9-35.2 [facility] Comment on above: Performed By: #### C BC ####[facility] [address] [place], [place] [address]Dr. Jeramy Dumont MCV (RBC) [Entitic vol] 94.3 fL Normal 81.0-99.0 [facility] Comment on above: Performed By: #### C BC ####[facility] [address] [place], [place] [address]Dr. Jeramy Dumont MONO # 0.6 103/ul Normal 0.3-0.8 [facility] Comment on above: Performed By: #### C BC ####[facility] C[address] [place], [place] [address]Dr. Jeramy Dumont Monocytes/100 WBC (Bld) 6.6 % Normal 1.7-12.0 [facility] Comment on above: Performed By: #### C BC ####[facility] X[address] [place], [place] [address]Dr. Jeramy Dumont NEUT # 4.3 103/ul Normal 1.4-6.5 [facility] Comment on above: Performed By: #### C BC ####[facility] [address] [place], [place] [address]Dr. Jeramy Dumont Neutrophils/100 WBC (Bld) 51.6 % Normal 43.0-75.0 [facility] Comment on above: Performed By: #### C BC ####[facility] [address] [place], [place] [address]Dr. Jeramy Dumont Platelet mean volume (Bld) [Entitic vol] 9.8 fL Normal 9.5-13.5 [facility] Comment on above: Performed By: #### C BC ####[facility] [address] [place], [place] [address]Dr. Jeramy Dumont PLT 283 103/ul Normal 150-450 [facility] Comment on above: Performed By: #### C BC ####[facility] [address] [place], [place] [address]Dr. Jeramy Dumont RBC 4.36 106/ul Normal 4.20-5.40 [facility] Comment on above: Performed By: #### C BC ####[facility] [address] [place] [address]Dr. Moniquelaura Dumont WBC 8.3 103/ul Normal 4.0-11.0 [facility] Comment on above: Performed By: #### C BC ####[facility] [address] [place] [address]Dr. Jeramy Dumont FREE T3on 04-27-2022 FREE T3 2.20 pg/mlL Normal 2.18-3.98 [facility] Comment on above: Performed By: #### F T3, TSH, BMP, LIVER ####[facility] [address] [place] [address]Dr. Jeramy Dumont FREE T4on 04-27-2022 Free T4 [Mass/Vol] 0.96 ng/dL Normal 0.76-1.46 [facility] Comment on above: Performed By: #### F T4 ####[facility] [address] [place] [address]Dr. Jeramy Dumont LIVER PROFILEon 04-27-2022 Albumin [Mass/Vol] 3.7 g/dL Normal 3.4-5.0 [facility] Comment on above: Performed By: #### F T3, TSH, BMP, LIVER #### [facility] [address] [place] [address] [address] Jeramy Dumont Albumin/Globulin [Mass ratio] 1.1 {ratio} Normal [facility] Comment on above: Performed By: #### F T3, TSH, BMP, LIVER #### [facility] [address] [place] [address] [address] Jeramy Dumont ALP [Catalytic activity/Vol] 64 U/L Normal 46-116 [facility] Comment on above: Performed By: #### F T3, TSH, BMP, LIVER #### [facility] [address] [place] [address] [address] Jeramy Dumont ALT [Catalytic activity/Vol] 28 U/L Normal 14-59 [facility] Comment on above: Performed By: #### F T3, TSH, BMP, LIVER #### [facility] [address] [place] [address] Dr. Jeramy Dumont AST [Catalytic activity/Vol] 16 U/L Normal 15-37 [facility] Comment on above: Performed By: #### F T3, TSH, BMP, LIVER #### [facility] [address] [place] [address] Dr. Jeramy Dumont BILI, CONJUGATED 0.1 mg/dL Normal 0.0-0.2 [facility] Comment on above: Performed By: #### F T3, TSH, BMP, LIVER #### [facility] [address] [place] [address] Dr. Jeramy Dumont Bilirubin [Mass/Vol] 0.2 mg/dL Normal 0.2-1.0 [facility] Comment on above: Performed By: #### F T3, TSH, BMP, LIVER #### [facility] [address] [place] [address] Dr. Jeramy Dumont Globulin (S) [Mass/Vol] 3.5 g/dL Normal T [facility] Comment on above: Performed By: #### F T3, TSH, BMP, LIVER #### [facility] [address] [place] [address] Dr. Jeramy Dumont Protein [Mass/Vol] 7.2 g/dL Normal 6.4-8.2 [facility] Comment on above: Performed By: #### F T3, TSH, BMP, LIVER #### [facility] [address] [place] [address] Dr. Jeramy Dumont PROF CHEM 8 (BAS METB)on Anion gap [Moles/Vol] 10.3 mmol/L Normal [facility] Comment on above: Performed By: #### F T3, TSH, BMP, LIVER #### [facility] [address] [place] [address] Dr. Jeramy Dumont Calcium [Mass/Vol] 9.0 mg/dL Normal 8.5-10.1 [facility] Comment on above: Performed By: #### F T3, TSH, BMP, LIVER #### [facility] [address] [place] [address] [address] Jeramy Dumont Chloride [Moles/Vol] 105 mmol/L Normal 98-107 [facility] Comment on above: Performed By: #### F T3, TSH, BMP, LIVER #### [facility] [address] [place] [address] [address] Jeramy Dumont CO2 [Moles/Vol] 30.7 mmol/L Normal 21.0-32.0 [facility] Comment on above: Performed By: #### F T3, TSH, BMP, LIVER #### [facility] [address] [place] [address] [address] Jeramy Dumont Creatinine [Mass/Vol] 0.85 mg/dL Normal 0.55-1.02 [facility] Comment on above: Performed By: #### F T3, TSH, BMP, LIVER #### [facility] [address] [place] [address] [address] Jeramy Dumont EGFR-AF NAMIBIAN >60 Normal >=60 [facility] Comment on above: Performed By: #### F T3, TSH, BMP, LIVER #### [facility] [address] [place] [address] [address] Jeramy Dumont EGFR-NON AF NAMIBIAN >60 Normal >=60 [facility] Comment on above: Performed By: #### F T3, TSH, BMP, LIVER #### [facility] [address] [place] [address] [address] Jeramy Dumont Glucose [Mass/Vol] 101 mg/dL Normal 74-106 [facility] Comment on above: Performed By: #### F T3, TSH, BMP, LIVER #### [facility] [address] [place] [address] [address] Jeramy Dumont Potassium [Moles/Vol] 4.0 mmol/L Normal 3.5-5.1 [facility] Comment on above: Performed By: #### F T3, TSH, BMP, LIVER #### [facility] [address] [place] [address] [address] Jeramy Dumont Sodium [Moles/Vol] 142 mmol/L Normal 136-145 [facility] Comment on above: Performed By: #### F T3, TSH, BMP, LIVER #### [facility] [address] [place], [place] [address] Dr. Jeramy Dumont Urea nitrogen [Mass/Vol] 15.0 mg/dL Normal 7.0-18.0 [facility] Comment on above: Performed By: #### F T3, TSH, BMP, LIVER #### [facility] [address] [place], [place] [address] Dr. Jeramy Dumont Urea nitrogen/Creatinine [Mass ratio] 17.6 mg/mg Normal [facility] Comment on above: Performed By: #### F T3, TSH, BMP, LIVER #### [facility] [address] [place], [place] [address] Dr. Jeramy Dumont TSHon 04-27-2022 TSH 0.960 uIU/mL Normal 0.358-3.740 [facility] Comment on above: Performed By: #### F T3, TSH, BMP, LIVER ####[facility] [address] [place], [place] [address]TiDr. Jeramy Dumont Covid-19 PCR (CVDTB)on 10-03 SARS-CoV-2 (COVID-19) RNA TRAVON+probe Ql (Unsp spec) Not detected Normal NOT DETECTED [facility] Comment on above: Result Comment: This test is not yet approved or cleared by the [place] FDA. When there are no FDA-approved or cleared tests available, and other criteria are met, FDA can make tests available under an emergency access mechanism called an Emergency Use Authorization (EUA). The EUA for this test is supported by the [employer] of Health and Human Service's (HHS's) declaration [...] with SARS-CoV-2. Performed By: #### C [facility] ####[facility] [address] [place], [place] [address]OzTeddy Dumont Established Visit (Gastroent erology)on 04-30-2020 Established Visit (Gastroenterology) Diagnoses/Problems Assessed Chronic idiopathic constipation (564.00) (K59.04) Esophageal reflux (530.81) (K21.9) Orders Chronic idiopathic constipation Start: Amitiza 8 MCG Oral Capsule; Take 1 capsule twice daily Rx By: Krzysztof Larkin; Dispense: 0 Days ; #:60 Capsule; Refill: 1;For: Chronic idiopathic constipation; ASHLYN = N; Verified Transmission to [id number]; Last Updated By: hoccer; 04/30/2020 1:37:03 PM Esophageal reflux Renew: Omeprazole 20 MG Oral Capsule Delayed Release; TAKE 1 CAPSULE DAILY Rx By: Krzysztof Larkin; Dispense: 0 Days ; #:90 Capsule; Refill: 1;For: Esophageal reflux; ASHLYN = N; Verified Transmission to [facility]; Last Updated By: hoccer; 04/30/2020 1:37:11 PM Patient Discussion/Summary Change omeprazole [...] Daily Oral Tablet Vitals Vital Signs Recorded: [id number] 01:17PM Opphggndqwa56 F Height5 ft 3 in Qgiwjq167 lb BMI Ueewmmswnn44.74 BSA Calculated1.63 Physical Exam Constitutional General appearance: [...] Apr 30 2020 1:41PM EST (Author) Normal [facility] MRI BRAIN WO/W IVCONon 02-13 [facility] C-Reactive Proteinon 019 CRP mass conc mg/L Normal 0.0-0.4 [facility] Comment on above: Performed By: #### C BCDIF, CRP #### [address], [place] [address] #### WSR #### [facility] [place] [address] [place] [phone] CBC and Differentialon 10-31 Abs Baso 0.05 k/uL Normal <0.11 [facility] Comment on above: Performed By: #### C BCDIF, CRP #### [address], [place] [address] #### WSR #### [facility] [phone] Abs Hart 0.49 k/uL Normal <0.87 [facility] Comment on above: Performed By: #### C BCDIF, CRP #### [phone] #### WSR #### [facility] [phone] Abs Neut 6.28 k/uL Normal 1.45-7.50 [facility] Comment on above: Performed By: #### C BCDIF, CRP #### [address] [place] [address] #### WSR #### [facility] [address] [place] [address] Absolute nRBC <0.01 Normal <0.01 [facility] Comment on above: Performed By: #### C BCDIF, CRP #### [address] [place] [address] #### WSR #### [place] [address] [place] [phone] Basophils/100 WBC (Bld) 0.6 % Normal [facility] Comment on above: Performed By: #### C BCDIF, CRP #### [address] [place] [address] #### WSR #### [place] [address] [place] [address] DTYPE Auto Diff [facility] Comment on above: Performed By: #### C BCDIF, CRP #### [address] [place] [address] #### WSR #### [facility] [address] [place] [phone] Eosinophils #/vol (Bld) 0.08 10*3/uL Normal <0.46 [facility] Comment on above: Performed By: #### C BCDIF, CRP #### [address] [place] [address] #### WSR #### [facility] [address] [id number] Eosinophils/100 WBC (Bld) 0.9 % Normal [facility] Comment on above: Performed By: #### C BCDIF, CRP #### [address] [place] [address] #### WSR #### [facility] [address] [place] [phone] Erythrocyte distribution width Ratio (RBC) 13.5 % Normal 11.5-15.0 [facility] Comment on above: Performed By: #### C BCDIF, CRP #### [address] [place] [address] #### WSR #### [place] [address] [place] [phone] Hematocrit Volume Fraction (Bld) 42.3 % Normal 36.0-46.0 [facility] Comment on above: Performed By: #### C BCDIF, CRP #### [address] [place] [address] #### WSR #### [place] [phone] Hemoglobin mass conc (Bld) 14.0 g/dL Normal 11.5-15.5 [facility] Comment on above: Performed By: #### C BCDIF, CRP #### [address] [place] [address] #### WSR #### [place] [address] [place] [phone] Lymphocytes #/vol (Bld) 2.07 10*3/uL Normal 1.00-4.00 [facility] Comment on above: Performed By: #### C BCDIF, CRP #### [address] [place] [address] #### WSR #### [place] [address] [place] [address] Lymphocytes/100 WBC (Bld) 23.1 % Normal [facility] Comment on above: Performed By: #### C BCDIF, CRP #### [address] [place] [address] #### WSR #### [facility] [address] [place], [place] [address] MCH Entitic mass (RBC) 31.1 pG Normal 26.0-34.0 [facility] Comment on above: Performed By: #### C BCDIF, CRP #### [address] [place] [address] #### WSR #### [facility] [address] [place], [place] [address] MCHC mass conc (RBC) 33.1 g/dL Normal 30.5-36.0 [facility] Comment on above: Performed By: #### C BCDIF, CRP #### [address] [place] [address] #### WSR #### [facility] [address] [place], [place] [address] MCV Entitic volume (RBC) 94.0 fL Normal 80.0-100.0 [facility] Comment on above: Performed By: #### C BCDIF, CRP #### [address] [place] [address] #### WSR #### [facility] [address] [place], [place] [address] Monocytes/100 WBC (Bld) 5.5 % Normal [facility] Comment on above: Performed By: #### C BCDIF, CRP #### [address] [place] [address] #### WSR #### [facility] [address] [place], [place] [address] Neutrophils/100 WBC (Bld) 69.9 % Normal [facility] Comment on above: Performed By: #### C BCDIF, CRP #### [facility] [address] [facility] [place] [address] #### WSR #### [facility] [address] [place], [place] [address] NRBCs 0.0 /100 WBC Normal 0 [facility] Comment on above: Performed By: #### C BCDIF, CRP #### [facility] [id number] [place] [address]., [place] [address] #### WSR #### [facility] [address] [place] [address] Platelet mean volume Entitic volume (Bld) 9.5 fL Normal 9.0-12.7 [facility] Comment on above: Performed By: #### C BCDIF, CRP #### [address] [place] [address] #### WSR #### [facility] [address] [place] [phone] Platelets #/vol (Bld) 279 10*3/uL Normal 150-400 [facility] Comment on above: Performed By: #### C BCDIF, CRP #### [address] [place] [address] #### WSR #### [facility] [address] [place], [place] [address] RBC #/vol (Bld) 4.50 10*6/uL Normal 3.90-5.20 [facility] Comment on above: Performed By: #### C BCDIF, CRP #### [address] [place] [address] #### WSR #### [facility] [address] [place] [address] WBC #/vol (Bld) 8.97 10*3/uL Normal 3.70-11.00 [facility] Comment on above: Performed By: #### C BCDIF, CRP #### [facility] [address] [place] [address] #### WSR #### [facility] [address] [place] [address] ED NOTEon 10-31-2018 ED NOTE HNO ID: [id number] Author: Erwin Dye MD Service: Emergency Medicine Author Type: Physician Type: ED Notes Filed: 11/03/2018 2:16 PM Note Text: Doing better, followed up with spine [facility] ED NOTE HNO ID: [id number] Author: Vasquez BairesRn) DUONG Winchester Service: ? Author Type: Registered Nurse Type: ED Notes Filed: 10/31/2018 9:15 AM Note Text: Pt to the ED by [facility] c/c 04/12 lower back pain she states [...] - notify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 Dyspareunia 11/04/2017 Tobacco user 05/03/2013 documented as of this encounter (statuses as of 05/08/2023) [facility] + Plan note No data available for this section [facility] Diagnosis Encounter for screening mammogram for breast cancer documented in this encounter [facility] note* Diagnosis Onset Date Resolution Status Encounter for screening colonoscopy [facility] Work Phone: Evaluation note* Diagnosis Chronic mixed headache syndrome Other headache syndromes documented in this encounter [facility] noteNo [employer] Other Hospital Discharge instructions Additional Instructions DISCHARGE [...] fruit Repeat colonoscopy in 5 years [facility] 1 p.o. every morning -Notify the doctor if you have any problems. -Office number [phone] Work Phone: Hospital Discharge instructions No data available for this section [facility]* Name Dates Details Instructions not documented -[facility] Work Phone: Progress note No data available for this section [facility] (narrative)* Diagnostic Procedure Only (Routine) - Pending Review Specialty Diagnoses / Procedures Referred By Zaid gutiérrez Referred To Contact [facility] Diagnoses Encounter for screening mammogram for breast cancer Procedures DOLORES SCREENING SCREENING MAMMOGRAPHY BI 2-VIEW BREAST INC CAD Jyoti García [place] [id number] [place] [address] [facility] [address] [place] [address] Referral ID Status Reason Start Date Expiration Date Visits Requested Visits Authorized [id number] Pending Review Auto-Generat ed Referral 2 07/16/2023 1 1 [facility] for referral (narrative)* Diagnostic Procedure Only (Routine) - Closed Specialty Diagnoses / Procedures Referred By Zaid gutiérrez Referred To Contact [facility] Diagnoses Chronic mixed headache syndrome G44.89 (ICD-10-CM) - Chronic mixed headache syndrome Procedures MRI BRAIN WO/W IVCON MRI BRAIN COMBO MRI BRAIN WO/W IVCON Jyoti García [place] [address] [place] [address] [facility]95 Referral ID Status Reason Start Date Expiration Date V isits Requested Visits Authorized [id number] Closed Auto-Generate d Referral 02/11/2020 07/03/2020 1 1 [facility] Summary Purpose Family History No Family History Records Found Relationship Condition Age at Onset Recorded Date/T bishop brother Malignant neoplasm of colon Unknown sister Malignant neoplasm of bone Unknown sister Malignant neoplasm of pancreas Unknown Advance Directives No Advanced Directives Records FoundDocuments on File Type Date Recorded Patient 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 Technician Expl 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 Advance Directive(s) 10/31/2018 9:16 AM Advance Directive(s) 12/04/2012 9:42 PM Advance Directive(s) 11/29/2012 9:09 PM Documents on File Type Date Recorded Patient Vending Technician Expl anation Advance Directive(s) 12/04/2012 9:42 PM Advance Directive(s) 11/29/2012 9:09 PM Documents on File Type Date Recorded Patient Vending Technician Expl anation Advance Directive(s) 12/04/2012 9:42 PM [...] Diagnosis 1 Post-nasal drainage (R09.82) Referral Organization [facility] kaylah Referring Provider First Name Sharonda Referring Provider Last Name Michele Referring Provider Specialty Family [facility] Referred Organization [facility] Referred Provider Shaan Villalta Referred Address ,[place], [place],[address] Referred Provider Specialty Ear, Nose an d Throat Referral Priority Routine General Notes Inessa Vitale 02:51:01 PM >received today, notes locked, ins attached, referral faxed Additional Source Comments INFORMATION SOURCE (unrecogn ized section and content) DATE CREATED AUTHOR 11/12/2018 [facility] DATE CREATED AUTHOR AUTHOR'S ORGANIZ ATION 06/18/2019 [facility] DATE CREATED AUTHOR AUTHOR'S ORGANIZ ATION 05/01/2020 [employer] DATE CREATED AUTHOR AUTHOR'S ORGANIZ ATION 08/01/2022 [facility] DATE CREATED AUTHOR AUTHOR'S ORGANIZ ATION 10/26/2022 [facility] DATE CREATED AUTHOR AUTHOR'S ORGANIZ ATION 05/30/2023 [facility] DATE CREATED AUTHOR AUTHOR'S ORGANIZ ATION 07/07/2023 [facility]ical [facility] DATE CREATED AUTHOR AUTHOR'S ORGANIZ ATION 08/20/2023 [facility] DATE CREATED AUTHOR AUTHOR'S ORGANIZ ATION 09/06/2023 [facility] dical [facility] DATE CREATED AUTHOR AUTHOR'S ORGANIZ ATION 05/02/2024 [facility] DATE CREATED AUTHOR AUTHOR'S ORGANIZ ATION 05/28/2024 [facility] Source Comments (unrecognize d section and content) In the event this informatio n is protected by the Federal Confidentiality of Alcohol and Drug Abuse Patient Records regulations: The Federal rules restrict any use of the information to criminally investigate or prosecute any alcohol or drug abuse patient.[facility] the event this information is protected by the Federal Confidentiality of Alcohol and Drug Abuse Patient Records regulations: The Federal rules restrict any use of the information to criminally investigate or prosecute any alcohol or drug abuse patient.[facility] the event this information is protected by the Federal Confidentiality of Alcohol and Drug Abuse Patient Records regulations: The Federal rules restrict any use of the information to criminally investigate or prosecute any alcohol or drug abuse patient.[facility] the event this information is protected by the Federal Confidentiality of Alcohol and Drug Abuse Patient Records regulations: The Federal rules restrict any use of the information to criminally investigate or prosecute any alcohol or drug abuse patient.[facility] Reason for Visit (unrecogniz ed section and content) Reason Comments Refill Request Reason Comments Radiology MRI Specialty Diagnoses / Procedures Referred By Contac t Referred To Contact MR IMAGING Diagnoses Chronic mixed headache syndrome G44.89 (ICD-10-CM) - Chronic mixed headache syndrome Procedures MRI BRAIN WO/W IVCON MRI BRAIN COMBO MRI BRAIN WO/W IVCON Jyoti García [place] [address] [place] [address] [place] [address] Referral ID Status Reason Start Date Expiration Date V isits Requested Visits Authorized [id number] Closed Auto-Generate d Referral 02/11/2020 07/03/2020 1 1 Care Teams (unrecognized sec tion and content) Javascript Web Developer Relationship Specialty Start Date End Date Jyoti García [place] [address] [place] [address] PCP - General Internal Medicine 09/11/19 Javascript Web Developer Relationship Specialty Start Date End Date Jyoti García [place] [address] [place] [address] PCP - General Internal Medicine 09/11/19 Javascript Web Developer Relationship Specialty Start Date End Date Jyoti García [place] [address] [place] [address] PCP - General Internal Medicine 09/11/19 Team Status: Inactive Member Role Status Dates Enrrique Grant MD Attending Provider Active Jameel Manzanares MD Primary Care Provider Active Team Status: Active Member Role Status Dates Jameel Manzanares MD Primary Care Provider Active Javascript Web Developer Relationship Specialty Start [place] Jyoti García [place] [address] [place] [address] PCP - General Internal Medicine 09/11/19 FOR [...] BE BASED ON THE PRIMARY CLINICAL RECORDS. [employer] [facility]. provides no warranty or guarantee of the accuracy or completeness of information in this document.
== END 2024-06-05 11:32 | disposition home or self-care (01) ==
LOC: PM 11:31
PROVIDERS: PCP Family Medicine; Visit Provider Anesthesiology Pain Medicine
DX: M47.816 Spondylosis without myelopathy or radiculopathy, lumbar region (principal); M62.838 Other muscle spasm; M51.26 Other intervertebral disc displacement, lumbar region
CPT/HCPCS: G0463

== ENCOUNTER 2024-06-19 08:33 | Day surgery (SDC) | payer MEDICARE, SELFPAY ==
--- OUTSIDE RECORDS SUMMARY | 2024-06-19 08:56 | XMS_ITS | CCD ---
Author Organization [facility] Care Team Providers Care International Accounting Manager Name Role Phone MARNIE ERWIN Attending Unavailable Abbass, Rami Unavailable Unavailable Unknown, Referring Provider Unavailable Unav ailable Abbass, Rami Unavailable Unavailable Chaya PAUL, Rami Unavailable Unavailable Unknown, Referring Provider Unavailable Unav ailable Raquel PAUL, Jyoti Lugo Primary Care Provider Jyoti García MD Primary Care Provider Jyoti García MD Primary [...] Viridiana PAUL, Jim Mckay Attending Unavailable GUILLEMARQUIS Referring Unavailable NAILARUBI Attending Unavailable GUILLE, MARQUIS Referring Unavailable GUILLE, MARQUIS Referring Unavailable KEVIN, KARLOS Referring Unavailable GUILLE, MARQUIS Referring Unavailable KEVIN, KARLOS Referring Unavailable KEVIN, KARLOS Referring Unavailable KEVIN, KARLOS Referring Unavailable JARAD LÓPEZ Referring Unavailable KEVIN, KARLOS Referring Unavailable KEVIN, KARLOS Referring Unavailable KARLOS BROWN Referring Unavailable MARQUIS PETERSEN Referring Unavailable JOSE VILLALOBOS Attending Unavailable MARQUIS PETERSEN Attending Unavailable MARQUIS PETERSEN Attending Unavailable Allergies Allergy Classification Reported Allergen(s) Allergy Type Date of Onset Reaction(s) Facility Prochlorperazine (1 source) Prochlorperazine Drug Allergy [facility] Work Phone: Sulfonamides (antibiotic) (1 source) Sulfonamides (Antibiotic) Drug Allergy [facility] Work Phone: (5 sources) Hydroxychloroquine; Translations: [HYDROXYCHLOROQUINE SULFATE] Drug Allergy Rash [facility] Repository (8 sources) Sulfonamides (Antibiotic); Translations: [SULFA (SULFONAMIDE ANTIBIOTICS)] Propensity to adverse reactions to drug (disorder) Unknown Reaction [facility] Repository (6 sources) AMOXICILLIN-POT CLAVULANATE; Translations: [AMOXICILLIN-POT CLAVULANATE] Propensity to adverse reactions to drug (disorder) 019 Rash [facility] Repository (5 sources) PROCHLORPERAZINE EDISYLATE; Translations: [PROCHLORPERAZINE EDISYLATE] Propensity to adverse reactions to drug (disorder) 006 [facility] Repository (4 sources) Sulfonamides (Antibiotic) drug allergy [facility] Work Phone: (1 source) drug allergy [facility] Work Phone: (13 sources) Prochlorperazine; Translations: [Compazine] Drug Allergy Unknown [facility] Repository (6 sources) Prochlorperazine; Translations: [PROCHLORPERAZINE] Drug Allergy 006 Other: See Comments [facility] (5 sources) traMADol; Translations: [TRAMADOL] Drug Allergy 019 Intolerance, GI Upset [facility] (1 source) Prochlorperazine Drug Allergy 023 [facility] Repository (9 sources) Sulfacetamide / Sulfur Drug Allergy Unknown [facility] Other (1 source) Sulfonamides (Antibiotic) Drug allergy (disorder) [facility] Repository (1 source) Hydroxychloroquine; Translations: [HYDROXYCHLOROQUINE ] Drug Allergy 006 [facility] Repository Medications Current Medications Medication Drug Class(es) Dates Sig (Normalized) Sig (Original) [id number] actuat albuterol 0.09 mg/actuat metered dose [...] Start: 03-28-2017 take [address] [facility] once daily Cholecalciferol, Vitamin D3, [...] Start: 07-29-2022 take 1 tablet by mali th once daily Magnesium Active 1 TAB PO [...] TAB PO Daily July 29, 2022 12:00am [place] 3 (9 sources) [place] 3 Active [place]-3 Fatty Acids (1 source) Start : 07-29 take 1000 mg by mouth once daily [place]-3 Fatty Acids Active 1000 MG PO Daily [...] Comment on above: TAKE 1 CAPSULE BY [facility] EVERY DAY travoprost (13 sources) Prostaglandin [...] on above: Take [address] [facility] daily at bedtime for 30 [...] on above: Take [address] [facility] as needed. lubiprostone 0.008 mg [...] as needed. Take [address] [facility] once daily. MV with Avy-Ggrfmxza-Jtjjbr (CENTRUM SILVER) 0.4-300-250 mg-mcg-mcg tab (1 source) Start: 07-07-19 21 take 1 tablet by mouth once daily MV with Mdo-Yspqctuy-Btgrbn (CENTRUM SILVER) 0.4-300-250 mg-mcg-mcg tab Take 1 [...] on above: Take 1 capsule by [facility] daily at bedtime. 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; Translations: [OTH [facility] CURRENT DRUG THERAPY] Onset: 2 Episodic Other [...] other organs or systems; Translations: [FAM HX MAL NEOPLASM OTH ORGN/SYS] Onset: 2 Episodic Residual codes; unclassified (1 source) Family history of malignant neoplasm of trachea, bronchus and lung; Translations: [[facility] HX MALIG NEOPLSM TRACH BRON LNG] Onset: 2 Episodic Residual codes; unclassified (1 source) Family history of malignant neoplasm of digestive organs; Translations: [[facility] HX [facility] NEOPLASM DIGESTIV ORGN] Onset: 2 Episodic Spondylosis; [...] should continue. She verbalized understanding. Normal [facility] Office Visiton 02-28-2024 Follow-up visit [id number] Marly Jaffe 1955 F Date Provider Department Center 02/28/2024 CarliMARQUIS OLSON Family History Problem Relation Age of Onset Stroke Mother Hypertension Mother Cancer Mother Stroke Father Other Father Family Status - Relation Status Age at Mother Father Level of Service:34045 [place] OFFICE/OUTPATIENT ESTABLISHED LOW MDM 20 MIN Normal [facility] Office Visiton 12-01-2023 Follow-up visit [id number] Marly Jaffe 1955 Provider Department Center 12/01/2023 [id number] Family History Problem Relation Age of Onset Stroke Mother Hypertension Mother Cancer Mother Stroke Father Other Father Family Status - Relation Status Age at Mother Father Level of Service:90320 [place] OFFICE/OUTPATIENT NEW LOW MDM 30 MINUTES Normal [facility] CT Maxillofacial w/o Contras ton [...] low as reasonably achievable. Ordering Provider: Shaan Vides FINAL REPORT Dictated: 08/19/2023 10:24 am Signer Ehsan PAUL Signed (Electronic Signature): 08/19/2023 10:24 am Signed by: Ehsan Gordillo MD Transcribed by: CHRISTIAN Technologist: MARTELL Normal [facility] Consent for Treatmenton 08-04 Consent for Treatment [id number] #1.00TIFF Normal [facility] Physician Orderon 07-08-2023 Physician Order [id number] #1.00TIFF Normal [facility] Office Visiton 06-20-2023 Follow-up visit [id number] Marly Jaffe 1955 F Date Provider Department Center 06/20/2023 Abraham-JOSE VILLALOBOS CARD Lara [facility] Family History Problem Relation Age of Onset Stroke Mother Hypertension Mother Cancer Mother Stroke Father Other Father Family Status - Relation Status Age at Mother Father Level of Service:33003 [place] OFFICE/OUTPATIENT ESTABLISHED MOD MDM 30 MIN Normal [facility] CT LUNG CANCER SCREENINGon 0 [...] ÁNGEL PUGH Date: 2022-08-04 14:41 Normal [facility] XR RIBS BIL_PA CH 4V OR [...] by: ÁNGEL PUGH Date: 2022-08-04 14:45 Normal [facility] XR TSPINE MIN 4 VIEWSon XR [...] by: ÁNGEL PUGH Date: 2022-08-04 14:42 Normal [facility] Desean 07-29-2022 L Specimen: [id number] Received: 07/29/22 Status: KHUSHIYadi Mejia Num: [id number] Spec Type: Surgical Subm Dr: Enrrique Grant MD Tissues: A Colon Biopsy (POLYP SIGMOID) Procedures: HE/2, Gross/Micro L4 Age/ Patient Sex Location Account Attending Physician Marly Jaffe 67/F [id number] Enrrique Grant MD SPEC NUM: [id number] RECD: 07/29/22 STATUS: HUY MEJIA NUM: [id number] SALOMON: 07/29/22Margarette SARMIENTO DR: Enrrique Grant MD ENTERED: 07/29/22 RADHA [...] support the above pathologic diagnosis. CPT Codes 09329 Specimen: [id number] Received: 07/29/22 Status: HUY Mejia Num: [id number] Spec Type: Surgical Subm Dr: Enrrique Grant MD Tissues: A Colon Biopsy (POLYP SIGMOID) Procedures: HE/2, Gross/Micro L4 Patient: Marly Jaffe [id number] (Continued) Signed (signature on file) Benjamin Wolf MD 07/30/22 1133 Normal [facility] ECHOCARDIO M/2D COMPLETEon 0 07-13-2022 ECHOCARDIO M/2D COMPLETE Patient: MARLY JAFFE Exam Date: 07/13/2022 : 1955 Gender:F Ordering : MARQUIS PETERSEN Admission #: [id number] Family : Order #: [id number] CLICK HERE TO VIEW EXAM ECHOCARDIOGRAM REPORT [...] Mak M.D. on 07/15/2022 at 10:33 Normal [facility] MG MAMM SCREEN 3D LAWRENCE CADon 06-23-2022 MG MAMM SCREEN 3D LAWRENCE CAD Patient: MARLY JAFFE Exam Date: 06/23/2022 : 1955 Gender:F Ordering : DR MERCY MORGAN . Admission #: [id number] Family : Order #: [id number] CLICK HERE TO VIEW EXAM RADIOLOGY REPORT [...] colon cancer at age 51. LOCATION: [facility] BREAST COMPOSITION: Scattered areas fibroglandular density. [...] Pugh M.D. on 06/23/2022 at 14:39 Normal [facility] PAP ACOG PANEL 2: 30 to 65on 06-23-2022 . . Normal [facility] Comment on above: Performed By: #### 4 [id number] #### [facility] [address] [place] [address] Dr. Jeramy Dumont Age Gdln ACOG Testing Comment Normal [facility] Comment on above: Result Comment: <21 or >65 or no age provided Performed By: #### 4 [id number] #### [facility] [address] [place] [address] Dr. Jeramy Dumotn DIAGNOSIS: Comment Normal [facility] Comment on above: Result Comment: NEGA TIVE FOR INTRAEPITHELIAL LESION OR MALIGNANCY. REACTIVE CELLULAR CHANGES AND/OR REPAIR ARE PRESENT. Performed By: #### 4 [id number] #### [facility] [address] [place] [address] Dr. Jeramy Dumont Electronically signed by: Comment Normal [facility] Comment on above: Result Comment: Bere Aguilar MD, Pathologist Performed By: #### 4 [id number] #### [place] [address] Dr. Jeramy Dumont Methodology: Comment Normal [facility] Comment on above: Result Comment: This liquid based ThinPrep(R) pap test was screened with the use of an image guided system. Performed By: #### 4 [id number] #### [facility] [address] [place] [address] Dr. Jeramy Dumont Note: Comment Normal [facility] Comment on above: Result Comment: The Pap smear is a screening test designed to aid in the detection of premalignant and malignant conditions of the uterine cervix. It is not a diagnostic procedure and should not be used as the sole means of detecting cervical cancer. Both false-positive and false-negative reports do occur. . Performed By: #### 4 [id number] #### [facility] [address] [place] [address] Dr. Jeramy Dumont Performed by: Comment Normal [facility] Comment on above: Result Comment: Norma Mancia Human Factors Specialist (ASCP) Performed By: #### 4 [id number] #### [facility] [address] [place] [address] Dr. Jeramy Dumont Specimen adequacy: Comment Normal [facility] Comment on above: Result Comment: Sati sfactory for evaluation. Endocervical and/or squamous metaplastic cells (endocervical component) are present. Performed By: #### 4 [id number] #### [facility] [address] [place] [address] [address] Jeramy Dumont XR DEXA BONE DENSITYon [...] ÁNGEL PUGH Date: 2022-06-23 11:46 Normal [facility] CBC AUTO DIFFon 04-27-2022 BASO # 0.1 103/ul Normal 0.0-0.1 [facility] Comment on above: Performed By: #### C BC ####[facility] [address] [place] [address]Dr. Jeramy Dumont Basophils/100 WBC (Bld) 0.6 % Normal 0.2-2.0 [facility] Comment on above: Performed By: #### C BC ####[facility] [address] [place] [address]Dr. Jeramy Dumont EO # 0.2 103/ul Normal 0.0-0.7 [facility] Comment on above: Performed By: #### C BC ####[facility] [address] [place] [address]Dr. Jeramy Dumont Eosinophils/100 WBC (Bld) 1.9 % Normal 0.9-7.0 [facility] Comment on above: Performed By: #### C BC ####[facility] [address] [place] [address]DrTeddy Dumont Erythrocyte distribution width (RBC) [Ratio] 13.3 % Normal 11.0-15.0 [facility] Comment on above: Performed By: #### C BC ####[facility] [address] [place] [address]Dr. Jeramy Dumont Hematocrit (Bld) [Volume fraction] 41.1 % Normal 36.0-48.0 [facility] Comment on above: Performed By: #### C BC ####[facility] [address] [place] [address]Dr. Jeramy Dumont Hemoglobin (Bld) [Mass/Vol] 13.4 g/dL Normal 12.0-16.0 [facility] Comment on above: Performed By: #### C BC ####[facility] [address] [place], [place] [address]Dr. Moniquelaura Dumont IG # 0.02 10e3/ul Normal 0.00-0.03 [facility] Comment on above: Performed By: #### C BC ####[facility] [address] [place], [place] [address]Dr. Jeramy Dumont IG % 0.2 % Normal 0.0-0.5 [facility] Comment on above: Performed By: #### C BC ####[facility] [address] [place], [place] [address]Dr. Moniquelaura Dumont LYMPH # 3.2 103/ul Normal 1.2-3.8 [facility] Comment on above: Performed By: #### C BC ####[facility] [address] [place], [place] [address]Dr. Jeramy Dumont Lymphocytes/100 WBC (Bld) 39.1 % Normal 20.5-60.0 [facility] Comment on above: Performed By: #### C BC ####[facility] [address] [place], [place] [address]Dr. Jeramy Dumont MANUAL DIFF REQ NO Normal [facility] Comment on above: Performed By: #### C BC ####[facility] [address] [place], [place] [address]Dr. Jeramy Dumont MCH (RBC) [Entitic mass] 30.7 pg Normal 26.7-34.0 [facility] Comment on above: Performed By: #### C BC ####[facility] [address] [place] [id number]. Jeramy Dumont MCHC (RBC) [Mass/Vol] 32.6 g/dL Normal 29.9-35.2 [facility] Comment on above: Performed By: #### C BC ####[facility] [address] [place] [address]Dr. Jeramy Tim MCV (RBC) [Entitic vol] 94.3 fL Normal 81.0-99.0 [facility] Comment on above: Performed By: #### C BC ####[facility] [address] [place], [place] [address]Dr. Jeramy Tim MONO # 0.6 103/ul Normal 0.3-0.8 [facility] Comment on above: Performed By: #### C BC ####[facility] [address] [place], [place] [address]Dr. Jeramy Dumont Monocytes/100 WBC (Bld) 6.6 % Normal 1.7-12.0 [facility] Comment on above: Performed By: #### C BC ####[facility] [address] [place], [place] [address]Dr. Jeramy Dumont NEUT # 4.3 103/ul Normal 1.4-6.5 [facility] Comment on above: Performed By: #### C BC ####[facility] [address] [place], [place] [address]Dr. Jeramy Dumont Neutrophils/100 WBC (Bld) 51.6 % Normal 43.0-75.0 [facility] Comment on above: Performed By: #### C BC ####[facility] [address] [place], [place] [address]Dr. Jeramy Dumont Platelet mean volume (Bld) [Entitic vol] 9.8 fL Normal 9.5-13.5 [facility] Comment on above: Performed By: #### C BC ####[facility] [address] [place], [place] [address]Dr. Jeramy Dumont PLT 283 103/ul Normal 150-450 [facility] Comment on above: Performed By: #### C BC ####[facility] [address] [place] [id number]. Jeramy Dumont RBC 4.36 106/ul Normal 4.20-5.40 [facility] Comment on above: Performed By: #### C BC ####[facility] [address] [place] [address]Dr. Jeramy Dumont WBC 8.3 103/ul Normal 4.0-11.0 [facility] Comment on above: Performed By: #### C BC ####[facility] [address] [place] [id number]. Jeramy Dumont FREE T3on 04-27-2022 FREE T3 2.20 pg/mlL Normal 2.18-3.98 [facility] Comment on above: Performed By: #### F T3, TSH, BMP, LIVER ####[facility] [address] [place] [address]Dr. Jeramy Dumont FREE T4on 04-27-2022 Free T4 [Mass/Vol] 0.96 ng/dL Normal 0.76-1.46 [facility] Comment on above: Performed By: #### F T4 ####[facility] [address] [place] [address]Dr. Jeramy Dumont LIVER PROFILEon 04-27-2022 Albumin [Mass/Vol] 3.7 g/dL Normal 3.4-5.0 [facility] Comment on above: Performed By: #### F T3, TSH, BMP, LIVER #### [facility] [address] [place] [address] [address] Jeramy Dumont Albumin/Globulin [Mass ratio] 1.1 {ratio} Normal [facility] Comment on above: Performed By: #### F T3, TSH, BMP, LIVER #### [facility] [address] [place] [address] [address] Jeramy Dumont ALP [Catalytic activity/Vol] 64 U/L Normal 46-116 [facility] Comment on above: Performed By: #### F T3, TSH, BMP, LIVER #### [facility] [address] [place] [address] [address] Jeramy Dumont ALT [Catalytic activity/Vol] 28 U/L Normal 14-59 [facility] Comment on above: Performed By: #### F T3, TSH, BMP, LIVER #### [facility] [address] [place] [address] [address] Jeramy Dumont AST [Catalytic activity/Vol] 16 U/L Normal 15-37 [facility] Comment on above: Performed By: #### F T3, TSH, BMP, LIVER #### [facility] [address] [place] [address] Dr. Jeramy Dumont BILI, CONJUGATED 0.1 mg/dL Normal 0.0-0.2 [facility] Comment on above: Performed By: #### F T3, TSH, BMP, LIVER #### [facility] [address] [place] [address] Dr. Jeramy Dumont Bilirubin [Mass/Vol] 0.2 mg/dL Normal 0.2-1.0 [facility] Comment on above: Performed By: #### F T3, TSH, BMP, LIVER #### [facility] [address] [place] [address] Dr. Jeramy Dumont Globulin (S) [Mass/Vol] 3.5 g/dL Normal [facility] Comment on above: Performed By: #### F T3, TSH, BMP, LIVER #### [facility] [address] [place] [address] Dr. Jeramy Dumont Protein [Mass/Vol] 7.2 g/dL Normal 6.4-8.2 [facility] Comment on above: Performed By: #### F T3, TSH, BMP, LIVER #### [facility] [address] [place] [address] Dr. Jeramy Dumont PROF CHEM 8 (BAS METB)on Anion gap [Moles/Vol] 10.3 mmol/L Normal [facility] Comment on above: Performed By: #### F T3, TSH, BMP, LIVER #### [facility] [address] [place] [address] Dr. Jeramy Dumont Calcium [Mass/Vol] 9.0 mg/dL Normal 8.5-10.1 [facility] Comment on above: Performed By: #### F T3, TSH, BMP, LIVER #### [facility] [address] [place] [address] [address] Jeramy Dumont Chloride [Moles/Vol] 105 mmol/L Normal 98-107 [facility] Comment on above: Performed By: #### F T3, TSH, BMP, LIVER #### [facility] [address] [place] [address] [address] Jeramy Dumont CO2 [Moles/Vol] 30.7 mmol/L Normal 21.0-32.[address] [facility] Comment on above: Performed By: #### F T3, TSH, BMP, LIVER #### [facility] [address] [place] [address] Dr. Jeramy Dumont Creatinine [Mass/Vol] 0.85 mg/dL Normal 0.55-1.02 [facility] Comment on above: Performed By: #### F T3, TSH, BMP, LIVER #### [facility] [address] [place] [address] Dr. Jeramy Dumont EGFR-AF NEPALESE >60 Normal >=[address] [facility] Comment on above: Performed By: #### F T3, TSH, BMP, LIVER #### [facility] [address] [place] [address] Dr. Jeramy Dumont EGFR-NON AF NEPALESE >60 Normal >=60 [facility] Comment on above: Performed By: #### F T3, TSH, BMP, LIVER #### [facility] [address] [place] [address] [address] Jeramy Dumont Glucose [Mass/Vol] 101 mg/dL Normal 74-106 [facility] Comment on above: Performed By: #### F T3, TSH, BMP, LIVER #### [facility] [address] [place] [address] Dr. Jeramy Dumont Potassium [Moles/Vol] 4.0 mmol/L Normal 3.5-5.1 [facility] Comment on above: Performed By: #### F T3, TSH, BMP, LIVER #### [facility] [address] [place] [address] Dr. Jeramy Dumont Sodium [Moles/Vol] 142 mmol/L Normal 136-145 [facility] Comment on above: Performed By: #### F T3, TSH, BMP, LIVER #### [facility] [address] [place], [place] [address] Dr. Jeramy Dumont Urea nitrogen [Mass/Vol] 15.0 mg/dL Normal 7.0-18.0 [facility] Comment on above: Performed By: #### F T3, TSH, BMP, LIVER #### [facility] [address] [place], [place] [address] Dr. Jeramy Dumont Urea nitrogen/Creatinine [Mass ratio] 17.6 mg/mg Normal [facility] Comment on above: Performed By: #### F T3, TSH, BMP, LIVER #### [facility] [address] [place], [place] [address] Dr. Jeramy Dumont TSHon 04-27-2022 TSH 0.960 uIU/mL Normal 0.358-3.740 [facility] Comment on above: Performed By: #### F T3, TSH, BMP, LIVER ####[facility] [address] [place], [place] [address]UvDr. Jeramy Dumont [facility]03 SARS-CoV-2 (COVID-19) RNA TRAVON+probe Ql (Unsp spec) Not detected Normal NOT DETECTED [facility] Comment on above: Result Comment: This test is not yet approved or cleared by the [place] FDA. When there are no FDA-approved or cleared tests available, and other criteria are met, FDA can make tests available under an emergency access mechanism called an Emergency Use Authorization (EUA). The EUA for this test is supported by the [place] of Health and Human Service's (HHS's) declaration [...] consistent with SARS-CoV-2. Performed By: #### C [facility] ####[facility] [address] [place], [place] [address]RtTeddy Dumont Established Visit (Gastroent erology)on 04-30-2020 Established Visit (Gastroenterology) Diagnoses/Problems Assessed Chronic idiopathic constipation (564.00) (K59.04) Esophageal reflux (530.81) (K21.9) Orders Chronic idiopathic constipation Start: Amitiza 8 MCG Oral Capsule; Take 1 capsule twice daily Rx By: Krzysztof Larkin; Dispense: 0 Days ; #:60 Capsule; Refill: 1;For: Chronic idiopathic constipation; ASHLYN = N; Verified Transmission to [facility][id number]; Last Updated By: [employer]; 04/30/2020 1:37:03 PM Esophageal reflux Renew: Omeprazole 20 MG Oral Capsule Delayed Release; TAKE 1 CAPSULE DAILY Rx By: Krzysztof Larkin; Dispense: 0 Days ; #:90 Capsule; Refill: 1;For: Esophageal reflux; ASHLYN = N; Verified Transmission to [facility] #[id number]; Last Updated By: [employer]; 04/30/2020 1:37:11 PM Patient Discussion/Summary Change omeprazole [...] Daily Oral Tablet Vitals Vital Signs Recorded: [id number] 01:17PM [id number] F Height5 ft 3 in Tdsbah140 lb BMI Chwdjpijzm46.74 BSA Calculated1.63 Physical Exam Constitutional General appearance: [...] Normal Touchworks MRI BRAIN WO/W IVCONon 02-13 [facility] C-Reactive Proteinon 019 CRP mass conc mg/L Normal 0.0-0.4 [facility] Comment on above: Performed By: #### C BCDIF, CRP #### [address] [place] [address] #### WSR #### [facility] [address] [place] [phone] CBC and Differentialon 10-31 Abs Baso 0.05 k/uL Normal <0.11 [facility] Comment on above: Performed By: #### C BCDIF, CRP #### [address] [place] [address] #### WSR #### [facility] [address] [place] [phone] Abs Hartley 0.49 k/uL Normal <0.87 [facility] Comment on above: Performed By: #### C BCDIF, CRP #### [facility] [address] [facility] [place] [address] #### WSR #### [facility] [address] [place] [phone] Abs Neut 6.28 k/uL Normal 1.45-7.50 [facility] Comment on above: Performed By: #### C BCDIF, CRP #### [address] [place] [address] #### WSR #### [facility] [address] [place] [phone] Absolute nRBC <0.01 Normal <0.01 [facility] Comment on above: Performed By: #### C BCDIF, CRP #### [address] [place] [address] #### WSR #### [place] [address] [place] [phone] Basophils/100 WBC (Bld) 0.6 % Normal [facility] Comment on above: Performed By: #### C BCDIF, CRP #### [address] [place] [address] #### WSR #### [facility] [address] [place] [phone] DTYPE Auto Diff [facility] Comment on above: Performed By: #### C BCDIF, CRP #### [address] [place] [address] #### WSR #### [facility] [address] [place] [phone] Eosinophils #/vol (Bld) 0.08 10*3/uL Normal <0.46 [facility] Comment on above: Performed By: #### C BCDIF, CRP #### [address] [place] [address] #### WSR #### [facility] [address] [place] [phone] Eosinophils/100 WBC (Bld) 0.9 % Normal [facility] Comment on above: Performed By: #### C BCDIF, CRP #### [address] [place] [address] #### WSR #### [facility] [address] [place] [phone] Erythrocyte distribution width Ratio (RBC) 13.5 % Normal 11.5-15.0 [facility] Comment on above: Performed By: #### C BCDIF, CRP #### [address] [place] [address] #### WSR #### [place] [address] [place] [phone] Hematocrit Volume Fraction (Bld) 42.3 % Normal 36.0-46.0 [facility] Comment on above: Performed By: #### C BCDIF, CRP #### [address] [place] [address] #### WSR #### [place] [address] [place] [phone] Hemoglobin mass conc (Bld) 14.0 g/dL Normal 11.5-15.5 [facility] Comment on above: Performed By: #### C BCDIF, CRP #### [address] [place] [address] #### WSR #### [facility] [address] [place] [phone] Lymphocytes #/vol (Bld) 2.07 10*3/uL Normal 1.00-4.00 [facility] Comment on above: Performed By: #### C BCDIF, CRP #### [address] [place] [address] #### WSR #### [place] [address] [place] [phone] Lymphocytes/100 WBC (Bld) 23.1 % Normal [facility] Comment on above: Performed By: #### C BCDIF, CRP #### [facility] [address] [place] [address]., [place] [address] #### WSR #### [facility] [address] [place], [place] [address] MCH Entitic mass (RBC) 31.1 pG Normal 26.0-34.0 [facility] Comment on above: Performed By: #### C BCDIF, CRP #### [address] [place] [address] #### WSR #### [place] [address] MCHC mass conc (RBC) 33.1 g/dL Normal 30.5-36.0 [facility] Comment on above: Performed By: #### C BCDIF, CRP #### [address] [place] [address] #### WSR #### [facility] [address] [place] [address] MCV Entitic volume (RBC) 94.0 fL Normal 80.0-100.0 [facility] Comment on above: Performed By: #### C BCDIF, CRP #### [address] [facility] #### WSR #### [facility] [address] [place], [place] [address] Monocytes/100 WBC (Bld) 5.5 % Normal [facility] Comment on above: Performed By: #### C BCDIF, CRP #### [address] [place] [address] #### WSR #### [facility] [address] [place] [address] Neutrophils/100 WBC (Bld) 69.9 % Normal [facility] Comment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 Narrative* Problem Noted Date Resolved Date Screening breast examination 06/05/2012 Chest pain 09/17/2011 05/03/2013 Abnormal mammogram 08/02/2011 11/04/2017 Screening breast examination 03/30/2011 Colon cancer screening 03/03/2009 2 Degeneration of lumbar or lumbosacral interverte bral disc 01/24/2009 10/22/2013 Dyspareunia 11/04/2017 Tobacco user 05/03/2013 documented as of this encounter (statuses as of 02/01/2022) [facility] History of Past illness Narrative* Problem Noted Date Resolved Date Screening breast examination 06/05/2012 Chest pain 09/17/2011 05/03/2013 Abnormal mammogram 08/02/2011 11/04/2017 Screening breast examination 03/30/2011 Colon cancer screening 03/03/2009 2 Degeneration of lumbar or lumbosacral interverte bral disc 01/24/2009 10/22/2013 Dyspareunia 11/04/2017 Tobacco user 05/03/2013 documented as of this encounter (statuses as of 05/07/2022) [facility] History of Past illness Narrative* Problem Noted Date Resolved Date Screening breast examination 06/05/2012 Chest pain 09/17/2011 05/03/2013 Abnormal mammogram 08/02/2011 11/04/2017 Screening breast examination 03/30/2011 Colon cancer screening 03/03/2009 2 Degeneration of lumbar or lumbosacral interverte bral disc 01/24/2009 10/22/2013 Dyspareunia 11/04/2017 Tobacco user 05/03/2013 documented as of this encounter (statuses as of 06/21/2022) [facility] History of Past illness Narrative* Problem Noted Date Diagnosed Date Resolved Date Screening breast examination 06/05/2012 05/03/2013 Chest pain 09/17/2011 05/03/2013 Abnormal mammogram 08/02/2011 8 Screening breast examination 03/30/2011 08/02/2011 Colon cancer screening 03/03/200908/02 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 01/24/2009 10/22/2013 Dyspareunia 11/04/2017 Tobacco user 05/03/2013 documented as of this encounter (statuses as of 05/08/2023) [facility] + Plan note No data available for this section [facility]* Diagnosis Encounter for screening mammogram for breast cancer documented in this encounter [facility] note* Diagnosis Onset Date Resolution Status Encounter for screening colonoscopy [facility] Work Phone: Evaluation note* Diagnosis Chronic mixed headache syndrome Other headache syndromes documented in this encounter [facility] noteNo [facility] Other Hospital Discharge instructions Additional Instructions DISCHARGE [...] kiwi fruit Repeat colonoscopy in 5 years [facility] 1 p.o. every morning -Notify the doctor if you have any problems. -Office number [phone] Work Phone: Hospital Discharge instructions No data available for this section [facility]* Name Dates Details Instructions not documented [facility] Work Phone: Progress note No data available for this section [facility] CenterReason for referral (narrative)* Diagnostic Procedure Only (Routine) - Pending Review Specialty Diagnoses / Procedures Referred By Zaid gutiérrez Referred To Contact [facility] Diagnoses Encounter for screening mammogram for breast cancer Procedures DOLORES SCREENING SCREENING MAMMOGRAPHY BI 2-VIEW [place] Jyoti García [place] [address] [place] [address] [facility] [address] [place] [address] Referral ID Status Reason Start Date Expiration Date Visits Requested Visits Authorized [id number] Pending Review Auto-Generat ed Referral 2 07/16/2023 1 1 [facility] for [facility]ative)* Diagnostic Procedure Only (Routine) - Closed Specialty Diagnoses / Procedures Referred By Zaid gutiérrez Referred To Contact [facility] IMAGING Diagnoses Chronic mixed headache syndrome G44.89 (ICD-10-CM) - Chronic mixed headache syndrome Procedures MRI BRAIN WO/W IVCON MRI BRAIN COMBO MRI BRAIN WO/[place] Jyoti García [place] [address] [place] [address] [place] [address] Referral ID Status Reason Start Date Expiration Date V isits Requested Visits Authorized [id number] Closed Auto-Generate d Referral 02/11/2020 07/03/2020 1 1 [facility] Summary Purpose Family History No Family History Records Found Relationship Condition Age at Onset Recorded Date/T bishop brother Malignant neoplasm of colon Unknown sister Malignant neoplasm of bone Unknown sister Malignant neoplasm of pancreas Unknown Advance Directives No Advanced Directives Records FoundDocuments on File Type Date Recorded 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 Advance Directive(s) 10/31/2018 9:16 AM Advance Directive(s) 12/04/2012 9:42 PM Advance Directive(s) 11/29/2012 9:09 PM Documents on File Type Date Recorded 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 Advance Directive(s) 12/04/2012 9:42 PM Advance Directive(s) 11/29/2012 9:09 PM Documents on File Type Date Recorded 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 Advance Directive(s) 12/04/2012 9:42 PM [...] Diagnosis 1 Post-nasal drainage (R09.82) Referral Organization Counts include 234 beds at the [facility] kaylah Referring Provider First Name Sharonda Referring Provider Last Name Michele Referring Provider Specialty Family Medi cine Referred Organization [facility] Referred Provider Shaan Vides Referred Address ,[place], [place],[address] Referred Provider Specialty Ear, Nose an d Throat Referral Priority Routine General Notes Inessa Vitale 02:51:01 PM >received today, notes locked, ins attached, referral faxed Additional Source Comments INFORMATION SOURCE (unrecogn ized section and content) DATE CREATED AUTHOR 11/12/2018 [facility] DATE CREATED AUTHOR AUTHOR'S ORGANIZ ATION 06/18/2019 [facility] DATE CREATED AUTHOR AUTHOR'S ORGANIZ ATION 05/01/2020 [facility] DATE CREATED AUTHOR AUTHOR'S ORGANIZ ATION 08/01/2022 [facility] DATE CREATED AUTHOR AUTHOR'S ORGANIZ ATION 10/26/2022 [facility] DATE CREATED AUTHOR AUTHOR'S ORGANIZ ATION 05/30/2023 [facility] DATE CREATED AUTHOR AUTHOR'S ORGANIZ ATION 07/07/2023 [facility] EPIC DATE CREATED AUTHOR AUTHOR'S ORGANIZ ATION 08/20/2023 [facility] ical Center DATE CREATED AUTHOR AUTHOR'S ORGANIZ ATION 09/06/2023 [facility] EPIC DATE CREATED AUTHOR AUTHOR'S ORGANIZ ATION 05/02/2024 [facility] DATE CREATED AUTHOR AUTHOR'S ORGANIZ ATION 06/18/2024 [facility] Source Comments (unrecognize d section and content) In the event this informatio n is protected by the Federal Confidentiality of Alcohol and Drug Abuse Patient Records regulations: The Federal rules restrict any use of the information to criminally investigate or prosecute any alcohol or drug abuse patient.[facility] Hospital[facility] the event this information is protected by the Federal Confidentiality of Alcohol and Drug Abuse Patient Records regulations: The Federal rules restrict any use of the information to criminally investigate or prosecute any alcohol or drug abuse patient.[facility] HospitalIn the event this information is protected by the Federal Confidentiality of Alcohol and Drug Abuse Patient Records regulations: The Federal rules restrict any use of the information to criminally investigate or prosecute any alcohol or drug abuse patient.[facility] HospitalIn the event this information is protected by the Federal Confidentiality of Alcohol and Drug Abuse Patient Records regulations: The Federal rules restrict any use of the information to criminally investigate or prosecute any alcohol or drug abuse patient.[facility] Reason for Visit (unrecogniz ed section and content) Reason Comments Refill Request Reason Comments Radiology MRI Specialty Diagnoses / Procedures Referred By Zaid t Referred To Contact MR IMAGING Diagnoses Chronic mixed headache syndrome G44.89 (ICD-10-CM) - Chronic mixed headache syndrome Procedures MRI BRAIN WO/W IVCON MRI BRAIN COMBO MRI BRAIN WO/[place]CON Jyoti García [place] [address] [place] [address] [place] [address] Referral ID Status Reason Start Date Expiration Date V isits Requested Visits Authorized [id number] Closed Auto-Generate d Referral 02/11/2020 07/03/2020 1 1 Care Teams (unrecognized sec tion and content) International Accounting Manager Relationship Specialty Start Date [place] Date Jyoti García [place] [address] [place] [address] PCP - General Internal Medicine 09/11/19 International Accounting Manager Relationship Specialty Start Date [place] Jyoti García [place] [address] [place] [address] PCP - General Internal Medicine 09/11/19 International Accounting Manager Relationship Specialty Start Date [place] Jyoti García [place] [address] [place] [address] PCP - General Internal Medicine 09/11/19 Team Status: Inactive Member Role Status Dates Enrrique Grant MD Attending Provider Active Jameel Manzanares MD Primary Care Provider Active Team Status: Active Member Role Status Dates Jameel Manzanares MD Primary Care Provider Active International Accounting Manager Relationship Specialty Start Date [place] Jyoti García [place] [address] [place] [address] PCP - General Internal Medicine 09/11/19 FOR [...] BE BASED ON THE PRIMARY CLINICAL RECORDS. [employer] [facility]. provides no warranty or guarantee of the accuracy or completeness of information in this document.
[2024-06-19 09:18] VITALS: BP 133/93; PULSE 76; TEMP 36.7; O2SAT 98
[2024-06-19 10:55] VITALS: BP 142/84; PULSE 67; O2SAT 97
[2024-06-19 10:57] VITALS: BP 142/88; PULSE 69; O2SAT 98
[2024-06-19] MEDS: 0.9 % SODIUM CHLORIDE 10 ML SYRINGE - SALINE FLUSH 2 ML INJ (11:00)
[2024-06-19] MEDS: LIDOCAINE HCL 2% 400 MG/20 ML MDV INJ (11:01)
[2024-06-19] MEDS: METHYLPREDNISOLONE ACETATE 80 MG/ML VIAL INJ (11:01)
[2024-06-19] MEDS: IOHEXOL 240 MG/ML - 10 ML VIAL 12 MG INJ (11:01)
[2024-06-19] MEDS: BUPIVACAINE HCL 0.25% PF 25 MG/10 ML VIAL 2 ML INJ (11:01)
--- NOTE | 2024-06-19 11:15 | P.ON_ITS ---
Date of procedure: 06/19/24 Pre-op diagnosis: lumbar disc displacement Post-op diagnosis: same as pre-op Procedure: Lumbar 4/5 Epidural Steroid Injection Under fluoroscopic guidance Immediate complications none Solution used for injection: Marcaine 0.25% 2mL, 2cc Normal saline, Depo-Medrol 80mg Omnipaque 3 mL Anesthesia local 2% lidocaine up to 4ml Timeout process compliant After informed consent obtained. Patient brought to the procedure room placed in the prone position. Skin overlying the area was prepped and draped in a sterile fashion using betadine. 25 gauge needle used to raise a skin wheel with local anesthetic over the target area identified under fluoroscopy. A 17 gauge Touhy needle Was inserted over the anesthetized area and directed towards the inter- space under fluoroscopic guidance. Epidural space was identified with loss of resistance technique to air. Needle Tip placement confirmed with injection of contrast solution in AP and Lateral views. Steroid solution was then injected. Anesthesia: Local Surgeon: Jarvis Camp Condition: stable Disposition: PACU
== END 2024-06-19 11:06 | disposition home or self-care (01) ==
LOC: SURGOUT 08:34
PROVIDERS: PCP Family Medicine; Visit Provider Anesthesiology Pain Medicine
DX: M48.062 Spinal stenosis, lumbar region with neurogenic claudication (principal)
CPT/HCPCS: 62323; J0665; J1010; Q9966

== ENCOUNTER 2024-07-10 11:17 | Outpatient (OUT) | payer MEDICARE, SELFPAY ==
--- NOTE | 2024-07-10 | CONS_ITS ---
CONSULTATION DATE: 07/10/2024 TO: Estelle Bautista M.D. CHIEF COMPLAINT: Includes bilateral mid back pain and upper lumbar pain. HISTORY: She reports the pain as being 7/10, dull aching in character, with an occasional sharp shooting component, increased with activities such as standing and walking and performing transitioning maneuvers. She also reports pushing and pulling maneuvers and lifting maneuvers are quite uncomfortable as well. She denies any change in bowel and bladder habits or new sensorimotor changes in the lower extremities. CURRENT MEDICATION: Includes baclofen 10 mg pills t.i.d., ibuprofen 200 mg two pills b.i.d. and Xanax 1 mg t.i.d. EXAM: Notable for patient having no clinical radiculopathy or myelopathy involving the lower extremities on today?s visit. Patient did have severe pain with lumbar facet joint loading maneuvers occurring bilaterally, worse on the right than the left side at L2-3 and possibly L3-4, with associated myalgia and myofascial spasm of the erector spinae muscles bilaterally. IMPRESSION: Our impression is patient with chronic pain secondary to lumbosacral spondylosis with facet joint loading pain clinically at L2-3 and possibly L3-4, right worse than left, with associated myalgia and myofascial spasm of the erector spinae muscle. RECOMMENDATIONS: We await her consultation under the care of Dr. Zavala at [facility]. In the interim, I have asked her to continue with her current regimen and will see the patient back in the office in approximately 4-6 weeks? time or sooner if needed. As part of providing excellent, safe, comprehensive care, the following was completed at our patient's visit: 1. A medication reconciliation and review to ensure accurate knowledge of current/active medications, including asking our patients to inform us about any mlfm-dkv-yhxqczv medications or herbal remedies/nutritional supplements/alternative remedies. 2. A review to specifically ensure our patients have had annual screening for: elevated body mass index (BMI, see intake chart for exact total), tobacco use, screening for depression, and screening for unhealthy alcohol use. When screening is concerning, patients are provided with education and the specific recommendation to discuss the concerning health issue and treatment options with their primary care provider. SANDI
== END 2024-07-10 11:18 | disposition home or self-care (01) ==
LOC: PM 11:18
PROVIDERS: PCP Family Medicine; Visit Provider Anesthesiology Pain Medicine
DX: M47.816 Spondylosis without myelopathy or radiculopathy, lumbar region (principal); M79.18 Myalgia, other site; G89.4 Chronic pain syndrome
CPT/HCPCS: G0463

== ENCOUNTER 2024-07-16 12:53 | Outpatient (OUT) | payer MEDICARE, SELFPAY ==
--- NOTE | 2024-07-16 13:16 | XR_ITS ---
The [address] [address] Patient Name: MARLY JAFFE MRN: [id number] date: 1955 Sex: F Assigned Patient Location: LAB Current Patient Location: Accession/Order Number: [id number] Exam Date: 07/16/2024 13:23 Report Date: 07/17/2024 08:32 At the request of: SHARONDA CALIX Procedure: XR thoracic spine 3V EXAMINATION: XR thoracic spine 3V HISTORY: Thoracic Back Pain COMPARISON: No relevant comparison available. FINDINGS: BONES: No significant spondylosis, scoliosis, fracture, or visible bony lesion. DISC SPACES: Mild degenerative changes C5-6, C6-7. PARASPINOUS: Negative. No paraspinous abnormality is seen. OTHER: Negative. XR/XR thoracic spine 3V IMPRESSION: 1. No appreciable acute abnormality. 2. Mild degenerative changes. Electronically authenticated by: ÁNGEL ANTHONY Date: 07/17/2024 08:32
--- OUTSIDE RECORDS SUMMARY | 2024-07-16 13:17 | XMS_ITS | CCD ---
Author Organization [facility] Care Team Providers Care Nickel Operator Name Role Phone MARNIE ERWIN Attending Unavailable Abbass, Rami Unavailable Unavailable Unknown, Referring Provider Unavailable Unav ailable Abbass, Rami Unavailable Unavailable Chaya PAUL, Rami Unavailable Unavailable Unknown, Referring Provider Unavailable Unav ailable Raquel PAUL, Jyoti Lugo Primary Care Provider Jyoti García MD Primary Care Provider [phone] Jyoti García MD Primary Care Provider MD Enrrique Grant Attending Provider [phone] MD Jameel Manzanares Primary Care Provider [phone] Enrrique Grant Attending UnavailEnrrique Contreras Admitting Unavailabl [...] DR JAMEEL Ellis Admitting Unavailable NADERER, DR JMAEEL Ellis Consulting Unavailable MARQUIS PETERSEN Consulting Unavailable [...] Unavailable Viridiana PAUL, Jim Mckay Attending Unavailable GUILLE, MARQUIS Attending Unavailable GUILLE, MARQUIS Referring Unavailable KEVIN, KARLOS Referring Unavailable GUILLE, MARQUIS Referring Unavailable GUILLE, MARQUIS Referring Unavailable GUILLE, MARQUIS Referring Unavailable GUILLE, MARQUIS Referring Unavailable KEVIN, KARLOS Referring Unavailable KEVIN, KARLOS Referring Unavailable JARAD LÓPEZ Referring Unavailable KEVIN, KARLOS Referring Unavailable KEVIN, KARLOS Referring Unavailable MARQUIS PETERSEN Referring Unavailable KEVIN, KARLOS Referring Unavailable KEVIN, KARLOS Referring Unavailable RUBI YOO Attending Unavailable MARQUIS PETERSEN Attending Unavailable Allergies Allergy Classification Reported Allergen(s) Allergy Type Date of Onset Reaction(s) Facility Prochlorperazine (1 source) Prochlorperazine Drug Allergy [facility] Work Phone: Sulfonamides (antibiotic) (1 source) Sulfonamides (Antibiotic) Drug Allergy [facility] Work Phone: (5 sources) Hydroxychloroquine; Translations: [HYDROXYCHLOROQUINE SULFATE] Drug Allergy Rash [facility] Repository (8 sources) Sulfonamides (Antibiotic); Translations: [SULFA (SULFONAMIDE ANTIBIOTICS)] Propensity to adverse reactions to drug (disorder) Unknown Reaction [facility] Repository (6 sources) AMOXICILLIN-POT CLAVULANATE; Translations: [AMOXICILLIN-POT CLAVULANATE] Propensity to adverse reactions to drug (disorder) 019 Rash [facility] Repository (5 sources) PROCHLORPERAZINE EDISYLATE; Translations: [PROCHLORPERAZINE EDISYLATE] Propensity to adverse reactions to drug (disorder) 006 [facility] Repository (4 sources) Sulfonamides (Antibiotic) drug allergy [facility] Work Phone: (1 source) drug allergy [facility] Work Phone: (13 sources) Prochlorperazine; Translations: [Compazine] Drug Allergy Unknown [facility] Repository (6 sources) Prochlorperazine; Translations: [PROCHLORPERAZINE] Drug Allergy 006 Other: See Comments [facility] (5 sources) traMADol; Translations: [TRAMADOL] Drug Allergy 019 Intolerance, GI Upset [facility] (1 source) Prochlorperazine Drug Allergy 023 [facility] Repository (9 sources) Sulfacetamide / Sulfur Drug Allergy Unknown [employer] Other (1 source) Sulfonamides (Antibiotic) Drug allergy (disorder) [facility] Repository (1 source) Hydroxychloroquine; Translations: [HYDROXYCHLOROQUINE ] Drug Allergy 006 [facility] Repository Medications Current Medications Medication Drug Class(es) Dates Sig (Normalized) Sig (Original) [id number] actuat albuterol 0.09 mg/actuat metered dose [...] Start: 03-28-2017 take 1 capsule by mo [facility] once daily Cholecalciferol, Vitamin D3, 2,000 unit [...] TAB PO Daily July 29, 2022 12:00am [place] 3 (9 sources) [place] 3 Active [place]-3 Fatty Acids (1 source) Start : 07-29 take 1000 mg by mouth once daily [place]-3 Fatty Acids Active 1000 MG PO Daily [...] on above: TAKE 1 CAPSULE BY [facility] EVERY DAY travoprost (13 sources) Prostaglandin [...] on above: Take 1 capsule by mo [facility] daily at bedtime for 30 days. ibuprofen/diphenhy [...] on above: Take 1 capsule by mo [facility] as needed. lubiprostone 0.008 mg oral capsule [...] bedtime as needed. Take 1 capsule by [facility] once daily. MV with Qel-Mprkahaj-Jazpnm (CENTRUM SILVER) 0.4-300-250 mg-mcg-mcg tab (1 source) Start: 07-07-19 21 take 1 tablet by mouth once daily MV with Ugo-Rjflfvou-Dvtdug (CENTRUM SILVER) 0.4-300-250 mg-mcg-mcg tab Take 1 [...] Comment on above: Take 1 capsule by [facility] daily at bedtime. triamcinolone acetonide 40 [...] Translations: [Esophageal reflux] Onset: 9 03-03-2009 Chronic Glaucoma (4 sources) Raised intraocular pressure; [...] 06-05-2012 Episodic Other aftercare (4 sources) Other correction (current) drug therapy; Translations: [OTH SKILLED NURSING [...] unspecified; Translations: [Supraventricular tachycardia, unspecified] Onset: 4 NEGATED: Highlighted row has not occurred!Residual codes; unclassified (6 sources) Disease Episodic Results Test Name Value Interpretation Reference Range Facility Office Visiton 06-12-2024 Follow-up visit [id number] Marly Jaffe 1955 F Date Provider Department Center 06/12/2024 MARQUIS FRIEDMAN [facility] Family History Problem Relation Age of Onset Stroke Mother Hypertension Mother Cancer Mother Stroke Father Other Father Family Status - Relation Status Age at Mother Father Level of Service:67551 [place] OFFICE/OUTPATIENT ESTABLISHED LOW MDM 20 MIN Normal [facility] 36on 03-30-2024 36 Patient called to report BP's since stopping amlodipine per Dr. Petersen last month. SPB has been 125-135 systolic. HR in the 60's. I advised patient these were good numbers and she should continue. She verbalized understanding. Normal [facility] Office Visiton 02-28-2024 Follow-up visit [id number] Marly Jaffe 1955 F Date Provider Department Center 02/28/2024 MARQUIS FRIEDMAN SUSANA Hoffman Family History Problem Relation Age of Onset Stroke Mother Hypertension Mother Cancer Mother Stroke Father Other Father Family Status - Relation Status Age at Mother Father Level of Service:18253 [place] OFFICE/OUTPATIENT ESTABLISHED LOW MDM 20 MIN Normal [facility] Office Visiton 12-01-2023 Follow-up visit [id number] Marly Jaffe 1955 F Date Provider Department Center 12/01/2023 [id number] WHALEN Family History Problem Relation Age of Onset Stroke Mother Hypertension Mother Cancer Mother Stroke Father Other Father Family Status - Relation Status Age at Mother Father Level of Service:95820 [place] OFFICE/OUTPATIENT NEW LOW MDM 30 MINUTES Normal [facility] CT Maxillofacial w/o Contras ton [...] MD Transcribed by: CHRISTIAN Technologist: MARTELL Normal [facility] Consent for Treatmenton 08-04 Consent for Treatment [id number] #[id number] Normal [facility] Physician Orderon 07-08-2023 Physician Order [id number] #1.00TIFF [facility] CT LUNG CANCER SCREENINGon 0 08-04-2022 [...] ÁNGEL PUGH Date: 2022-08-04 14:45 Normal [facility] XR TSPINE MIN 4 VIEWSon XR [...] by: ÁNGEL PUGH Date: 2022-08-04 14:42 Normal [facility] Desean 07-29-2022 L Specimen: [id number] Received: 07/29/22 Status: HUY Mejia Num: [id number] Spec Type: Surgical Subm Dr: Enrrique Grant MD Tissues: A Colon Biopsy (POLYP SIGMOID) Procedures: HE/2, Gross/Micro L4 Age/ Patient Sex Location Account Attending Physician Marly Jaffe 67/F [id number] Enrrique Grant MD SPEC NUM: [id number] RECD: 07/29/22 STATUS: HUY MEJIA NUM: [id number] SALOMON: 07/29/22- [facility] DR: Enrrique Grant MD ENTERED: 07/29/[address] [facility] [address]: SPEC TYPE: Surgical DEPT: [...] support the above pathologic diagnosis. CPT Codes 81946 Specimen: [id number] Received: 07/29/22 Status: HUY Mejia Num: [id number] Spec Type: Surgical Subm Dr: Ernrique Grant MD Tissues: A Colon Biopsy (POLYP SIGMOID) Procedures: ANGELICA/Deborah, Gross/Micro L4 Patient: Marly Jaffe [id number] (Continued) Signed (signature on file) Benjamin Wolf MD 07/30/22 1133 [facility] ECHOCARDIO M/2D COMPLETEon 0 07-13-2022 ECHOCARDIO M/2D COMPLETE Patient: MARLY JAFFE Exam Date: 07/13/2022 : 1955 Gender:F Ordering : MARQUIS LAIO Admission #: [id number] Family : Order #: [id number] CLICK HERE TO VIEW EXAM ECHOCARDIOGRAM REPORT [...] Mak M.D. on 07/15/2022 at 10:33 Normal [facility] MAMM SCREEN 3D LAWRENCE CADon 06-23-2022 MG MAMM SCREEN 3D LAWRENCE CAD Patient: MARLY JAFFETeddy Exam Date: 06/23/2022 : 1955 Gender:F Ordering : DR MERCY MORGAN . Admission #: [id number] Family : Order #: [id number] CLICK HERE TO VIEW EXAM RADIOLOGY REPORT [...] Pugh M.D. on 06/23/2022 at 14:39 Normal [facility] PAP ACOG PANEL 2: 30 to 65on 06-23-2022 . . Normal [facility] Comment on above: Performed By: #### 4 [id number] #### [facility] [address] [address] [address] Jeramy Dumont Age Gdln ACOG Testing Comment Normal [facility] Comment on above: Result Comment: <21 or >65 or no age provided Performed By: #### 4 [id number] #### [facility] [address] [address] [address] Jeramy Dumont DIAGNOSIS: Comment Normal [facility] Comment on above: Result Comment: NEGA TIVE FOR INTRAEPITHELIAL LESION OR MALIGNANCY. REACTIVE CELLULAR CHANGES AND/OR REPAIR ARE PRESENT. Performed By: #### 4 [id number] #### [facility] [address] [place] [address] Dr. Jeramy Dumont Electronically signed by: Comment Normal [facility] Comment on above: Result Comment: Bere Aguilar MD, Pathologist Performed By: #### 4 [id number] #### [facility] [address] [place] [address] Dr. Jeramy Dumont Methodology: Comment Normal [facility] Comment on above: Result Comment: This liquid based ThinPrep(R) pap test was screened with the use of an image guided system. Performed By: #### 4 [id number] #### [facility] [address] [place] [address] Dr. Jeramy Dumont Note: Comment Normal [facility] Comment on above: Result Comment: The Pap smear is a screening test designed to aid in the detection of premalignant and malignant conditions of the uterine cervix. It is not a diagnostic procedure and should not be used as the sole means of detecting cervical cancer. Both false-positive and false-negative reports do occur. . Performed By: #### 4 [id number] #### [facility] [address] [place] [address] Dr. Jeramy Dumont Performed by: Comment Normal [facility] Comment on above: Result Comment: Norma Mancia Paper Reeler (ASCP) Performed By: #### 4 [id number] #### [facility] [address] [place] [address] Dr. Jeramy Dumont Specimen adequacy: Comment Normal [facility] Comment on above: Result Comment: Sati sfactory for evaluation. Endocervical and/or squamous metaplastic cells (endocervical component) are present. Performed By: #### 4 [id number] #### [facility] [address] [place] [address] Dr. Jeramy Dumont XR DEXA BONE DENSITYon [...] 04-27-2022 BASO # 0.1 103/ul Normal 0.0-0.1 [facility] Comment on above: Performed By: #### C BC ####[facility] [address] [place], [place] [address]DrTeddy Dumont Basophils/100 WBC (Bld) 0.6 % Normal 0.2-2.0 [facility] Comment on above: Performed By: #### C BC ####[facility] [address] [place], [place] [address]DrTeddy Dumont EO # 0.2 103/ul Normal 0.0-0.7 [facility] Comment on above: Performed By: #### C BC ####[facility] [address] [place], [place] [address]DrTeddy Dumont Eosinophils/100 WBC (Bld) 1.9 % Normal 0.9-7.0 [facility] Comment on above: Performed By: #### C BC ####[facility] [address] [place], [place] [address]DrTeddy Dumont Erythrocyte distribution width (RBC) [Ratio] 13.3 % Normal 11.0-15.0 [facility] Comment on above: Performed By: #### C BC ####[facility] [address] [place], [place] [address]DrTeddy Dumont Hematocrit (Bld) [Volume fraction] 41.1 % Normal 36.0-48.0 [facility] Comment on above: Performed By: #### C BC ####[facility] [address] [place], [place] [address]Dr. Jeraym Dumont Hemoglobin (Bld) [Mass/Vol] 13.4 g/dL Normal 12.0-16.0 [facility] Comment on above: Performed By: #### C BC ####[facility] [address] [address]Dr. Jeramy Dumont IG # 0.02 10e3/ul Normal 0.00-0.03 [facility] Comment on above: Performed By: #### C BC ####[facility] [address] [place], [place] [address]Dr. Jeramy Dumont IG % 0.2 % Normal 0.0-0.5 [facility] Comment on above: Performed By: #### C BC ####[facility] [address] [place], [place] [address]Dr. Jeramy Dumont LYMPH # 3.2 103/ul Normal 1.2-3.8 [facility] Comment on above: Performed By: #### C BC ####[facility] M[address] [place], [place] [address]Dr. Jeramy Dumont Lymphocytes/100 WBC (Bld) 39.1 % Normal 20.5-60.0 [facility] Comment on above: Performed By: #### C BC ####[facility] [address] [place], [place] [address]DrTeddy Dumont MANUAL DIFF REQ NO Normal [facility] Comment on above: Performed By: #### C BC ####[facility] H[address] [place], [place] [address]Dr. Jeramy Dumont MCH (RBC) [Entitic mass] 30.7 pg Normal 26.7-34.0 [facility] Comment on above: Performed By: #### C BC ####[facility] [address] [place], [place] [address]Dr. Jeramy Dumont MCHC (RBC) [Mass/Vol] 32.6 g/dL Normal 29.9-35.2 [facility] Comment on above: Performed By: #### C BC ####[facility] [address] [place], [place] [address]DrTeddy Dumont MCV (RBC) [Entitic vol] 94.3 fL Normal 81.0-99.0 [facility] Comment on above: Performed By: #### C BC ####[facility] Mr[address] [place], [place] [address]DrTeddy Jeramy Dumont MONO # 0.6 103/ul Normal 0.3-0.8 [facility] Comment on above: Performed By: #### C BC ####[facility] [address] [place], [place] [address]DrTeddy Jeramy Dumont Monocytes/100 WBC (Bld) 6.6 % Normal 1.7-12.0 [facility] Comment on above: Performed By: #### C BC ####[facility] [address] [place], [place] [address]DrTeddy Jeramy Dumont NEUT # 4.3 103/ul Normal 1.4-6.5 [facility] Comment on above: Performed By: #### C BC ####[facility] [address] [place], [place] [address]DrTeddy Jeramy Dumont Neutrophils/100 WBC (Bld) 51.6 % Normal 43.0-75.0 [facility] Comment on above: Performed By: #### C BC ####[facility] [address] [place], [place] [address]DrTeddy Jeramy Dumont Platelet mean volume (Bld) [Entitic vol] 9.8 fL Normal 9.5-13.5 [facility] Comment on above: Performed By: #### C BC ####[facility] [address] [place], [place] [address]Dr. Jeramy Dumont PLT 283 103/ul Normal 150-450 [facility] Comment on above: Performed By: #### C BC ####[facility] [address] [place], [place] [address]DrTeddy Jeramy Tim RBC 4.36 106/ul Normal 4.20-5.40 [facility] Comment on above: Performed By: #### C BC ####[facility] [address] [place], [place] [address]DrTeddy Dumont WBC 8.3 103/ul Normal 4.0-11.0 [facility] Comment on above: Performed By: #### C BC ####[facility] [address] [address]Dr. Jeramy Dumont FREE T3on 04-27-2022 FREE T3 2.20 pg/mlL Normal 2.18-3.98 [facility] Comment on above: Performed By: #### F T3, TSH, BMP, LIVER ####[facility] [address] [address]Dr. Jeramy Dumont FREE T4on 04-27-2022 Free T4 [Mass/Vol] 0.96 ng/dL Normal 0.76-1.46 [facility] Comment on above: Performed By: #### F T4 ####[facility] [address] [address]Dr. Jeramy Dumont LIVER PROFILEon 04-27-2022 Albumin [Mass/Vol] 3.7 g/dL Normal 3.4-5.0 [facility] Comment on above: Performed By: #### F T3, TSH, BMP, LIVER #### [facility] [address] [address] [address] Jeramy Dumont Albumin/Globulin [Mass ratio] 1.1 {ratio} Normal [facility] Comment on above: Performed By: #### F T3, TSH, BMP, LIVER #### [facility] [address] [address] [address] Jeramy Dumont ALP [Catalytic activity/Vol] 64 U/L Normal 46-116 [facility] Comment on above: Performed By: #### F T3, TSH, BMP, LIVER #### [facility] [address] [address] [address] Jeramy Dumont ALT [Catalytic activity/Vol] 28 U/L Normal 14-59 [facility] Comment on above: Performed By: #### F T3, TSH, BMP, LIVER #### [facility] [address] [address] [address] Jeramy Dumont AST [Catalytic activity/Vol] 16 U/L Normal 15-37 [facility] Comment on above: Performed By: #### F T3, TSH, BMP, LIVER #### [facility] [address] [place] [address] Dr. Jeramy Dumont BILI, CONJUGATED 0.1 mg/dL Normal 0.0-0.2 [facility] Comment on above: Performed By: #### F T3, TSH, BMP, LIVER #### [facility] [address] [place] [address] Dr. Jeramy Dumont Bilirubin [Mass/Vol] 0.2 mg/dL Normal 0.2-1.0 [facility] Comment on above: Performed By: #### F T3, TSH, BMP, LIVER #### [facility] [address] [place] [address] Dr. Jeramy Dumont Globulin (S) [Mass/Vol] 3.5 g/dL Normal T [facility] Comment on above: Performed By: #### F T3, TSH, BMP, LIVER #### [facility] [address] [place] [address] Dr. Jeramy Dumont Protein [Mass/Vol] 7.2 g/dL Normal 6.4-8.2 [facility] Comment on above: Performed By: #### F T3, TSH, BMP, LIVER #### [facility] [address] [place] [address] Dr. Jeramy Dumont PROF CHEM 8 (BAS METB)on Anion gap [Moles/Vol] 10.3 mmol/L Normal [facility] Comment on above: Performed By: #### F T3, TSH, BMP, LIVER #### [facility] [address] [place] [address] Dr. Jeramy Dumont Calcium [Mass/Vol] 9.0 mg/dL Normal 8.5-10.1 [facility] Comment on above: Performed By: #### F T3, TSH, BMP, LIVER #### [facility] [address] [place] [address] Dr. Jeramy Dumont Chloride [Moles/Vol] 105 mmol/L Normal 98-107 [facility] Comment on above: Performed By: #### F T3, TSH, BMP, LIVER #### [facility] [address] [address] [address] Jeramy Dumont CO2 [Moles/Vol] 30.7 mmol/L Normal 21.0-32.0 [facility] Comment on above: Performed By: #### F T3, TSH, BMP, LIVER #### [facility] [address] [address] [address] Jeramy Dumont Creatinine [Mass/Vol] 0.85 mg/dL Normal 0.55-1.02 [facility] Comment on above: Performed By: #### F T3, TSH, BMP, LIVER #### [facility] [address] [address] [address] Jeramy Dumont EGFR-AF GAMBIAN >60 Normal >=60 [facility] Comment on above: Performed By: #### F T3, TSH, BMP, LIVER #### [facility] [address] [address] [address] Jeramy Dumont EGFR-NON AF GAMBIAN >60 Normal >=60 [facility] Comment on above: Performed By: #### F T3, TSH, BMP, LIVER #### [facility] [address] [address] [address] Jeramy Dumont Glucose [Mass/Vol] 101 mg/dL Normal 74-106 [facility] Comment on above: Performed By: #### F T3, TSH, BMP, LIVER #### [facility] [address] [address] [address] Jeramy Dumont Potassium [Moles/Vol] 4.0 mmol/L Normal 3.5-5.1 [facility] Comment on above: Performed By: #### F T3, TSH, BMP, LIVER #### [facility] [address] [address] [address] Jeramy Dumont Sodium [Moles/Vol] 142 mmol/L Normal 136-145 [facility] Comment on above: Performed By: #### F T3, TSH, BMP, LIVER #### [facility] [address] [address] [address] Jeramy Dumont Urea nitrogen [Mass/Vol] 15.0 mg/dL Normal 7.0-18.0 [facility] Comment on above: Performed By: #### F T3, TSH, BMP, LIVER #### [facility] [address] [place], [place] [address] Dr. Jeramy Dumont Urea nitrogen/Creatinine [Mass ratio] 17.6 mg/mg Normal [facility] Comment on above: Performed By: #### F T3, TSH, BMP, LIVER #### [facility] [address] [place], [place] [address] Dr. Jeramy Dumont TSHon 04-27-2022 TSH 0.960 uIU/mL Normal 0.358-3.740 [facility] Comment on above: Performed By: #### F T3, TSH, BMP, LIVER ####[facility] [address] [place], [place] [address]MbTeddy Dumont Covid-19 PCR (CVDTB)on 10-03 SARS-CoV-2 (COVID-19) RNA TRAVON+probe Ql (Unsp spec) Not detected Normal NOT DETECTED [facility] Comment on above: Result Comment: This test is not yet approved or cleared by the [place] FDA. When there are no FDA-approved or cleared tests available, and other criteria are met, FDA can make tests available under an emergency access mechanism called an Emergency Use Authorization (EUA). The EUA for this test is supported by the Social Studies Department Chair of Health and Human Service's (HHS's) declaration [...] with SARS-CoV-2. Performed By: #### C VDTBH ####[facility] [address] [place], [place] [address]CmDr. Jeramy Dumont Established Visit (Gastroent erology)on 04-30-2020 Established Visit (Gastroenterology) Diagnoses/Problems Assessed Chronic idiopathic constipation (564.00) (K59.04) Esophageal reflux (530.81) (K21.9) Orders Chronic idiopathic constipation Start: Amitiza 8 MCG Oral Capsule; Take 1 capsule twice daily Rx By: Krzysztof Larkin; Dispense: 0 Days ; #:60 Capsule; Refill: 1;For: Chronic idiopathic constipation; ASHLYN = N; Verified Transmission to [facility] #[id number]; Last Updated By: [employer]™; 04/30/2020 1:37:03 PM Esophageal reflux Renew: Omeprazole 20 MG Oral Capsule Delayed Release; TAKE 1 CAPSULE DAILY Rx By: Krzysztof Larkin; Dispense: 0 Days ; #:90 Capsule; Refill: 1;For: Esophageal reflux; ASHLYN = N; Verified Transmission to [facility]/PHARMACY #[id number]; Last Updated By: [employer]™; 04/30/2020 1:37:11 PM Patient Discussion/Summary Change omeprazole [...] Daily Oral Tablet Vitals Vital Signs Recorded: [id number] 01:17PM Tdedozdcpqe51 F Height5 ft 3 in Aaxyxa507 lb BMI Zjfiyiuwwu88.74 BSA Calculated1.63 Physical Exam Constitutional General appearance: [...] Normal Touchworks MRI BRAIN WO/W IVCONon 02-13 [facility] C-Reactive Proteinon 019 CRP mass conc mg/L Normal 0.0-0.4 [facility] Comment on above: Performed By: #### C BCDIF, CRP #### [facility] [address] [place] [address]., [place] [address] #### WSR #### [facility] [address] [phone] CBC and Differentialon 10-31 Abs Baso 0.05 k/uL Normal <0.11 [facility] Comment on above: Performed By: #### C BCDIF, CRP #### [address] [place] [address] [phone] #### WSR #### [facility] [address] [place] [address] Abs Barry 0.49 k/uL Normal <0.87 [facility] Comment on above: Performed By: #### C BCDIF, CRP #### [address] [place] [address] [phone] #### WSR #### [facility] [address] [place] [address] Abs Neut 6.28 k/uL Normal 1.45-7.50 [facility] Comment on above: Performed By: #### C BCDIF, CRP #### [address] [place] [address] #### WSR #### [facility] [address] [place] [phone] Absolute nRBC <0.01 Normal <0.01 [facility] Comment on above: Performed By: #### C BCDIF, CRP #### [address] [place] [address] #### WSR #### [facility] [address] [place] [address] Basophils/100 WBC (Bld) 0.6 % Normal [facility] Comment on above: Performed By: #### C BCDIF, CRP #### [address] [place] [address] #### WSR #### [facility] [address] [phone] DTYPE Auto Diff [facility] Comment on above: Performed By: #### C BCDIF, CRP #### [address] [place] [address] #### WSR #### [facility] [address] [place] [address] Eosinophils #/vol (Bld) 0.08 10*3/uL Normal <0.46 [facility] Comment on above: Performed By: #### C BCDIF, CRP #### [address] [place] [address] #### WSR #### [facility] [address] [place] [address] Eosinophils/100 WBC (Bld) 0.9 % Normal [facility] Comment on above: Performed By: #### C BCDIF, CRP #### [address] [facility] #### WSR #### [facility] [address] [place] [phone] Erythrocyte distribution width Ratio (RBC) 13.5 % Normal 11.5-15.0 [facility] Comment on above: Performed By: #### C BCDIF, CRP #### [address] [place] [address] #### WSR #### [facility] [address] [address] Hematocrit Volume Fraction (Bld) 42.3 % Normal 36.0-46.0 [facility] Comment on above: Performed By: #### C BCDIF, CRP #### [address] [place] [address] #### WSR #### [place] [address] Hemoglobin mass conc (Bld) 14.0 g/dL Normal 11.5-15.5 [facility] Comment on above: Performed By: #### C BCDIF, CRP #### [address] [place] [address] #### WSR #### [place] [phone] Lymphocytes #/vol (Bld) 2.07 10*3/uL Normal 1.00-4.00 [facility] Comment on above: Performed By: #### C BCDIF, CRP #### [address] [place] [address] #### WSR #### [facility] [address] [place] [address] Lymphocytes/100 WBC (Bld) 23.1 % Normal [facility] Comment on above: Performed By: #### C BCDIF, CRP #### [address] [place] [address] #### WSR #### [facility] [address] [place] [address] MCH Entitic mass (RBC) 31.1 pG Normal 26.0-34.0 [facility] Comment on above: Performed By: #### C BCDIF, CRP #### [facility] [id number] [place] [address]., [place] [address] #### WSR #### [facility] [address] [place] [address] MCHC mass conc (RBC) 33.1 g/dL Normal 30.5-36.0 [facility] Comment on above: Performed By: #### C BCDIF, CRP #### [address] [place] [address] #### WSR #### [place] [address] MCV Entitic volume (RBC) 94.0 fL Normal 80.0-100.0 [facility] Comment on above: Performed By: #### C BCDIF, CRP #### [address] [place] [address] #### WSR #### [place] [address] [place] [address] Monocytes/100 WBC (Bld) 5.5 % Normal [facility] Comment on above: Performed By: #### C BCDIF, CRP #### [address] [facility] #### WSR #### [facility] [address], [place] [address] Neutrophils/100 WBC (Bld) 69.9 % Normal [facility] Comment on above: Performed By: #### C BCDIF, CRP #### [address] [place] [address] #### WSR #### [facility] [address] [address] NRBCs 0.0 /100 WBC Normal 0 [facility] Comment on above: Performed By: #### C BCDIF, CRP #### [address] [place] [address] #### WSR #### [facility] [address] [address] Platelet mean volume Entitic volume (Bld) 9.5 fL Normal 9.0-12.7 [facility] Comment on above: Performed By: #### C BCDIF, CRP #### [address] [place] [address] #### WSR #### [place] [address] Platelets #/vol (Bld) 279 10*3/uL Normal 150-400 [facility] Comment on above: Performed By: #### C BCDIF, CRP #### [address] [place] [address] #### WSR #### [place] [address] RBC #/vol (Bld) 4.50 10*6/uL Normal 3.90-5.20 [facility] Comment on above: Performed By: #### C BCDIF, CRP #### [address] [place] [address] #### WSR #### [place] [address] [place] [address] WBC #/vol (Bld) 8.97 10*3/uL Normal 3.70-11.00 [facility] Comment on above: Performed By: #### C BCDIF, CRP #### [address] [place] [address] #### WSR #### [facility] [address] [place], [place] [address] ED NOTEon 10-31-2018 ED NOTE HNO ID: [id number] Author: Erwin Napier MD Service: Emergency Medicine Author Type: Physician Type: ED Notes Filed: 11/03/2018 2:16 PM Note Text: Doing better, followed up with spine [facility] ED NOTE HNO ID: [id number] Author: Vasquez (Rn) STEVE Winchester Service: ? Author Type: Registered Nurse Type: ED Notes Filed: 10/31/2018 9:15 AM Note Text: Pt to the ED by [facility] c/c 04/12 lower back pain she [...] - notify physician of changes in condition [facility] ED NOTE HNO ID: [id number] Author: Lubna (Rn) Tim RN Service: ? Author Type: Registered Nurse Type: ED Notes Filed: 10/31/2018 9:08 AM Note Text: Bed: ED-15 Expected date: Expected time: Means of arrival: Comments: [facility] ED PROV NOTEon 10-31-2018 Protein mass conc HNO ID: [id number] Author: Erwin Napier MD Service: Emergency Medicine [...] has TENS unit at home. Evaluated by pricing specialist earlier today who advised her to [...] DANDC, DIAG AND/OR THERAPEUTIC Dilation AND curettage [facility] - EGD 11/2017 - EGD 11/2013 - [...] MD Erwin Zarco MD 10/31/18 1421 Normal [facility] Sed Rate Westergrenon 2018 Sed Rate Westergren 8 mm/hr Normal 0-20 [facility] Comment on above: Performed By: #### C BCDIF, CRP #### [facility] [address] [place] [address] #### WSR #### [facility] [address] [place], [place] [address] Dermatopathologyon 9 Dermatopathology Pathologist: SETH [...] Out By SETH BERNAL MD/[facility] Microscopic Description: Microscopic examination reveals a specimen [...] toto in two blocks. z/09/13/2018 Normal [facility] Comment on above: Performed By: #### [...] M.D. Electronically Signed Out By SETH BERNAL MD/[facility] Microscopic Description: A. 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 Clinical History: A: NAD. B: ISK vs. SCC. Specimens Submitted As: A: SKIN, RIGHT PHAM B: SKIN, RIGHT SABIANISM Gross Description: A: Received in formalin is a craig-brown piece of skin measuring [id number]. The specimen is inked and embedded in toto. B: Received in formalin is a craig piece of skin measuring [id number]. The specimen is inked and embedded in toto. ink/07/12/2018 Normal [facility] Comment on above: Performed By: #### D #### Dermatopathology Vital Signs Date Time Vital Sign Value Performing Clinician Facility 06-02-2023 13:15-0500 Body height 160.02 cm Sharonda Calix Other [employer] Other 06-02-2023 13:15-0500 Body mass index (BMI) [Ratio] 23.27 kg/m2 Sharonda Calix Other [employer] Other 06-02-2023 13:15-0500 Body temperature 96.9 [degF] Sharonda Calix Other [employer] Other 06-02-2023 13:15-0500 Body weight 59.6 kg Sharonda Calix Other [employer] Other 06-02-2023 13:15-0500 Diastolic blood pressure 79 mm[Hg] Sharonda Calix Other [employer] Other 06-02-2023 13:15-0500 SaO2% (BldA) [Mass fraction] 95 % Sharonda Calix Other [employer] Other 06-02-2023 13:15-0500 Systolic blood pressure 120 mm[Hg] Sharonda Calix Other [employer] Other 09-17-2022 11:00-0400 Body height 167.64 cm Enrrique Grant Other [employer] Other 09-17-2022 11:00-0400 Body mass index (BMI) [Ratio] 20.98 kg/m2 Enrrique Grant Other [employer] Other 09-17-2022 11:00-0400 Body weight 58.97 kg Enrrique Grant Other [facility] [employer] Other 09-17-2022 11:00-0400 Diastolic blood pressure 97 mm[Hg] Enrrique Grant Other [facility] [employer] Other 09-17-2022 11:00-0400 Systolic blood pressure 139 mm[Hg] Enrrique Grant Other [facility] [employer] Other 07-29-2022 12:11-0500 Diastolic blood pressure 84 mm[Hg] MD Jameel Manzanares Work Phone: [facility] 07-29-2022 12:11-0500 Heart rate 71 /min MD Jameel Manzanares Work Phone: [facility] 07-29-2022 12:11-0500 Respiratory rate 16 /min MD Jameel Manzanares Work Phone: [facility] 07-29-2022 12:11-0500 SaO2% (BldA) [Mass fraction] 96 % MD Jameel Manzanares Work Phone: [facility] 07-29-2022 12:11-0500 Systolic blood pressure 120 mm[Hg] MD Jameel Manzanares Work Phone: [facility] 07-29-2022 09:45-0500 Body height 160.02 cm MD Jameel Manzanares Work Phone: [facility] 07-29-2022 09:45-0500 Body temperature 98.4 [degF] MD Jameel Manzanares Work Phone: [facility] 07-29-2022 09:45-0500 Body weight 58.96 kg MD Jameel Manzanares Work Phone: [facility] Encounters Encounter Date Encounter Type Care Provider Facility Start: 06-28-2024 ambulatory [facility] Start: 06-15-2024 End: 06-15-2024 [facility] Start: 06-12-2024 End: 06-12-2024 ambulatory [facility] Start: 06-11-2024 ambulatory [facility] Start: 05-25-2024 ambulatory [facility] Start: 05-11-2024 ambulatory [facility] Start: 04-16-2024 End: 04-16-2024 ambulatory Jim Kemp MD Facility: [facility] Start: 04-05-2024 ambulatory [facility] Start: 03-07-2024 ambulatory [facility] Start: 02-28-2024 End: 02-28-2024 ambulatory [facility] Start: 12-22-2023 ambulatory [facility] Start: 12-22-2023 ambulatory [facility] Start: 12-01-2023 End: 12-01-2023 [facility] Start: 11-15-2023 ambulatory [facility] Start: 09-05-2023 End: 09-05-2023 ambulatory SHAAN H TIMMIS Not Available Start: 08-26-2023 End: 08-26-2023 ambulatory Sharonda Calix Other [employer] Other Start: 08-26-2023 Telephone encounter Sharonda Calix [facility] Start: 08-18-2023 End: 08-19-2023 ambulatory Shaan H Timmis Facility:[facility] Start: 07-06-2023 End: 07-06-2023 ambulatory SHAAN H TIMMIS Not Available Start: 07-06-2023 End: 08-11-2023 Pre-admission assessment Shaan H Timmis [facility] Start: 06-21-2023 End: 06-21-2023 ambulatory Sharonda Calix Other [employer] Other Start: 06-21-2023 Telephone encounter Sharonda Calix [facility] Start: 06-20-2023 End: 06-20-2023 ambulatory Sharonda Calix Other [employer] Other Start: 06-20-2023 Telephone encounter Sharonda Calix [facility] Start: 06-17-2023 End: 06-17-2023 ambulatory Sharonda Calix Other [employer] Other Start: 06-17-2023 Telephone encounter Sharonda Calix [facility] Start: 06-06-2023 End: 06-06-2023 ambulatory Sharonda Calix Other [employer] Other Start: 06-06-2023 Telephone encounter Sharonda Calix [facility] Start: 06-02-2023 End: 06-02-2023 ambulatory Sharonda Calix Other [employer] Other Start: 06-02-2023 Office outpatient visit 25 minutes Sharonda Calix [facility] Start: 05-19-2023 End: 05-19-2023 ambulatory Sharonda Calix Other [employer] Other Start: 05-19-2023 Nursing evaluation o f patient and report Sharonda Calix [facility] Start: 10-21-2022 End: 10-22-2022 ambulatory NARENDRANATH LAKSHMIPATHY . Facility: Start: 09-17-2022 End: 09-17-2022 ambulatory Enrrique Grant Other [employer] Other Start: 09-17-2022 Office outpatient visit 15 minutes Enrrique Grant [facility] Start: 08-04-2022 End: 08-05-[address] ÁNGEL PUGH Facility:[facility] Start: 07-29-2022 End: 07-29-2022 ambulatory Enrrique Grant Facility:[facility] Start: 07-29-2022 End: 07-29-2022 Admission to same day surgery center MD Jameel Manzanares Work Phone: [facility] Work Phone: Start: 07-29-2022 End: 07-29-2022 ambulatory MD Jameel Manzanares Work Phone: [facility] Work Phone: Start: 07-13-2022 End: 07-14-2022 ambulatory MARQUIS PETERSEN Facility:[facility] Start: 06-23-2022 End: 06-24-[address] MERCY MORGAN . Facility:[facility] Start: 06-16-2022 ambulatory Jyoti García MD Work Phone: [facility] [place] Start: 06-11-2022 End: 06-11-[address] MERCY [...] 04-30-2020 Patient encounter procedure Krzysztof Larkin [facility] [facility] Work Phone: Start: 02-14-2020 End: 02-14-2020 Subsequent hospital visit by physician [facility] (I-Stat/1.5t) Radiology Comment on above: Chronic mixed headac he syndrome [G44.89] Start: 10-31-2018 End: 10-31-2018 Emergency department patient visit [facility] Start: 08-25-2018 Patient encounter procedure Julio Cesari [facility] [facility] Work Phone: Start: 11-02-2017 Patient encounter procedure Julio Cesari [facility] Work [facility]: Start: 10-21-2017 Patient encounter procedure Julio Cesari [facility] [facility] Work Phone: Procedures Date Procedure [...] Serum or Plasma Lipid Screening [facility] Start: 09-11-2024 LIPID SCREEN LIPID SCREEN [facility] Start: 03-04-2023 Influenza vaccination Influenza Vacc ine (#1) [facility] Start: 09-11-2022 DIABETES SCREEN DIABETES SCREEN [facility] Start: 09-11-2022 Diabetes Screening Diabetes Screenin g [facility] Start: 07-29-2022 [facility] Start: 07-04-2022 Advance Directive Discussion Advance Directive Discussion [facility] Start: 07-04-2022 Colonoscopy COLONOSCOPY [facility] Start: 07-04-2022 COLORECTAL CANCER SCREENING COLORECTAL CANCER SCREENING [facility] Start: 07-04-2022 Depression Assessment Depression Ass essment [facility] Start: 03-04-2022 Influenza vaccination INFLUENZA (#1) [facility] Start: 08-13-2021 Adult depression screening assessment DEPRESSION SCREENING [facility] Start: 07-04-2021 ADVANCE DIRECTIVE DISCUSSION ADVANCE DIRECTIVE DISCUSSION [facility] Start: 07-04-2021 DEPRESSION ASSESSMENT DEPRESSION ASS ESSMENT [facility] Start: 03-30-2021 Urine microalbumin profile [facility] Start: 09-12-2019 Mammography [facility] Start: 2016 RSV Vaccine (1 - 1-d ose 60+ series) RSV Vaccine (1 - 1-dose 60+ series) [facility] Start: 05-23-2014 Pneumococcal Vaccine : 65+ (2 - PCV) Pneumococcal Vaccine: 65+ (2 - PCV) [facility] Start: 05-23-2014 PNEUMOCOCCAL: 65+ (2 - PCV) PNEUMOCOCCAL: 65+ (2 - PCV) [facility] Start: 11-30-2013 FECAL OCCULT BLOOD FECAL OCCULT BLOO D [facility] Start: 2006 SHINGRIX VACCINE (1 of 2) SHINGRIX VACCINE (1 of 2) [facility] Start: 2001 COLOGUARD (FIT-DNA) COLOGUARD (FIT-D NA) [facility] Start: [address] COLONOGRAPHY [facility] Start: 2001 SIGMOIDOSCOPY SIGMOIDOSCOPY [facility] Start: 1956 COVID-19 VACCINE (#1) COVID-19 VACCI NE (#1) [facility] End: 07-16-2023 DOLORES SCREENING DOLORES SCREENING Radiology Routine Encounter for screening mammogram for breast cancer 1 Occurrences starting 06/16/2022 until 07/16/2023 [facility] Work Phone: Comment on above: 1 Occurrences starti ng 06/16/2022 until 07/16/2023 Patient Education Hemorrhoids Co desean Polyps Diverticulosis (DC) [facility] Work Phone: Immunizations Immunization Date Immunization Notes Care Provider Cierra crhistian 05-19-2023 influenza, high dose seasonal, preservative-free Sharonda Calix Other [employer] Other 06-19-2020 influenza, injectabl e, quadrivalent, contains preservative Jojo Wesley OD Work Phone: [facility] 06-19-2020 influenza virus vacc ine, unspecified formulation Mri (I-Stat/1.5t) [facility] 09-11-2019 influenza, injectabl e, quadrivalent, contains preservative Jojo Wesley OD Work Phone: [facility] 09-11-2019 zoster vaccine, recombinant, adjuvanted, (SHINGRIX, PF,) 50 mcg/0.5 mL injection Mri (I-Stat/1.5t) [facility] Work Phone: Comment on above: Inject 0.5 mL intram uscularly now and repeat 2nd dose in 2-6 months 03-28-2017 influenza, injectabl e, quadrivalent, contains preservative Jojo Wesley OD Work Phone: [facility] 08-12-2016 influenza, injectabl e, quadrivalent, preservative free Jojo Wesley OD Work Phone: [facility] Work Phone: 04-14-2015 influenza, injectabl e, quadrivalent, preservative free Jojo Wesley OD Work Phone: [facility] Work Phone: 05-23-2013 influenza virus vacc ine, unspecified formulation Jojo Wesley OD Work Phone: [facility] 05-23-2013 pneumococcal polysaccharide vaccine, 23 valent Jojo Wesley OD Work Phone: [facility] 04-13-2012 influenza virus vacc ine, unspecified formulation Jojo Wesley OD Work Phone: [facility] 03-30-2011 tetanus toxoid, redu rukhsana diphtheria toxoid, and acellular pertussis vaccine, adsorbed Jojo Wesley OD Work Phone: [facility] Payers Date Payer Category Payer Private Health Insurance 2022 Self-pay 2019 Unknown [employer] PPO OOS [id number] 2019-Present [phone] [address] [place] [address] PPO [id number] 2019 Unknown [employer] PPO OOS [id number] 2019-Present [phone] [address] [place] [address] PPO [id number] 1959 Private Health Insurance 101 [id number] 1956 Unknown [id number] [id number] 1956 Unknown [id number] 2.16.840.1.618138.3.579.2.5 1956 Unknown [id number] 2.16.840.1.502617.3.579.2.5 1956 Unknown [id number] 2.16.840.1.462643.3.579.2.5 1956 Unknown [id number] 2.16.840.1.644252.3.579.2.5 1956 Unknown [id number] 2.16.840.1.199772.3.579.2.5 1956 Unknown [id number] 2.16.840.1.940038.3.579.2.5 93 1956 Unknown [id number] 2.16.840.1.412378.3.579.2.5 93 1956 Unknown [id number] 2.16.840.1.019942.3.579.2.5 93 1956 Unknown [id number] 2.16.840.1.831552.3.579.2.5 93 1956 Unknown [id number] 2.16.840.1.348215.3.579.2.5 93 1956 Unknown [id number] 2.16.840.1.122251.3.579.2.5 93 1956 Unknown [id number] 2.16.840.1.642816.3.579.2.5 93 1956 Unknown [id number] 2.16.840.1.550049.3.579.2.1 259 1956 Unknown [id number] 2.16.840.1.961614.3.579.2.7 27 1956 Unknown [id number] 2.16.840.1.190398.3.579.2.1 259 1956 Unknown [id number] 2.16.840.1.139336.3.579.2.1 96 Unknown [id number] 2.16.840.1.456630.3.579.2.5 31 Social History Date Type Detail Facility [facility] Start: 07-04-1985 History of tobacco use Cigarette Smo ker [facility] Start: 01-29-2020 End: 10-20-2020 Alcohol intake Current drinker of alcohol (finding) [facility] Start: 01-18-2020 End: 02-28-2020 History SDOH Alcohol Frequency 2 [facility] Start: 01-18-2020 End: 02-28-2020 History SDOH Alcohol Std Drinks 1 [facility] Start: 07-25-2014 History SDOH Alcohol Comment 1 drink per year [facility] Start: 09-11-2019 End: 01-18-2020 History SDOH Social Connections Phone 3 [facility] Start: 01-18-2020 History SDOH Physica l Activity DPW 5 [facility] Start: 09-11-2019 Education 15 [facility] Start: 09-11-2019 Tobacco Comment current 0.5-1ppd [facility] Start: 1955 Sex Assigned At Female C [facility] Start: 09-11-2019 End: 01-18-2020 Cigarettes smoked current (pack per day) - Reported 0.8 [facility] Start: 09-11-2019 Tobacco use and exposure Smoke less tobacco non-user [facility] Work Phone: Start: 07-29-2022 Tobacco smoking stat us VAIS Smoker (finding) [facility] Start: 09-11-2019 End: 01-18-2020 Sex Assigned At [facility] Frequency of Communication with Friends and Family Not on file [facility] Do you belong to any clubs or organizations such as yarsanism groups, unions, fraternal or athletic groups, or school groups? Yes [facility] How often to you hav e a drink containing alcohol? Monthly or less [facility] How many standard dr inks containing alcohol do you have on a typical day? 1 or 2 [facility] How often do you hav e 6 or more drinks on 1 occasion? Never [facility] Do you feel stress - tense, restless, nervous, or anxious, or unable to sleep at night because your mind is troubled all the time - these days [OSQ] Only a little [facility] (I/We) worried wheth er (my/our) food would run out before (I/we) got money to buy more. Never true [facility] - [place] In the past 12 month s, was there a time when you were not able to pay the mortgage or rent on time? No [facility] Start: 11-17-2018 Gender identity Identifies as female gender (finding) [facility] Start: 11-17-2018 Sexual orientation Choose not to disclose [facility] Start: 01-15-2020 End: 02-14-2020 Exposure to SARS-CoV-2 (event) Not sure [facility] Tobacco smoking status No Smokin g Status Entered [facility] NEGATED: Highlighted row - Current every day smoker -[facility] Work Phone: Goals Date Patient Goal Desired Activity /State Functional Status Date Assessment Result Facility NEGATED: Highlighted row Functional performance Functional status health issues are not documented Disease -[facility] Work Phone: Mental Status Date Assessment Result Facility NEGATED: Highlighted row Cognitive function [Interpretation] Cognitive status health issues are not documented Disease [facility] Work Phone: Clinical Notes 06-05-2012 to 06-12-2024 Note Date & Type Note Facility 06-12-2024 Note [facility] Consul t Note Reason for visit: Palpitations, AT 06/12/24 Patient here for 5 mo follow up palpitations and non-sustained AT. Had lipid panel last week and says she refuses statins. She would like to know if the noise on her loop recorder readings could be caused from her breast implants that have gotten lower . She gets SOB in the mornings and her inhaler helps with this. 02/28/24 Pt is here for a three [...] ---- 06/29/22 HPI: Marly Jaffe is a 69 y.o. year old with past medical history [...] Abnormal ECG Anxiety GERD (gastroesophageal reflux disease) Hyperlipidemia SVT (supraventricular tachycardia) ([facility]) PSH: Past Surgical History: Procedure Laterality Date BREAST SURGERY implants REPLACEMENT TOTAL KNEE ONCOLOGIC UTERINE FIBROID EMBOLIZATION SH: Social Determinants of Health Tobacco Use: High Risk (06/12/2024) Patient History Smoking Tobacco Use: Every Day Smokeless Tobacco Use: Never Passive Exposure: Current Alcohol Use: Not At Risk (02/28/2020) Received from [facility], [facility] AUDIT-C Frequency of Alcohol Consumption: Monthly or less Average Number of Drinks: 1 or 2 Frequency of Binge Drinking: Never Financial Resource Strain: Low Risk (01/18/2020) Received from [facility] Overall Financial Resource Strain (CARDIA) Difficulty of Paying Living Expenses: Not hard at all Food Insecurity: No Food Insecurity (09/11/2019) Received from [facility] Hunger Vital Sign Worried About Running Out of Food in the Last Year: Never true Ran Out of Food in the Last Year: Never true Transportation Needs: No Transportation Needs (09/11/2019) Received from [facility] PRAPARE - Transportation Lack of Transportation (Medical): No Lack of Transportation (Non-Medical): No Physical Activity: Sufficiently Active (01/18/2020) Received from [facility] Exercise Vital Sign Days of Exercise per Week: 5 days Minutes of Exercise per Session: 30 min Stress: No Stress Concern Present (01/18/2020) Received from [facility] [place] of Occupational Health - Occupational Stress Questionnaire Feeling of Stress : Only a little Social Connections: Unknown (01/18/2020) Received from [facility] Social Connection and Isolation Panel [NHANES] Frequency of Communication with Friends and Family: Not on file Frequency of Social Gatherings with Friends and Family: Not on file Attends Mosque Services: More than 4 times per year Active M (more content not included)... [facility] 02-28-2024 Note [place] [facility] Consul [place] Note Reason for visit: [...] on file Intimate Partner Violence: Unknown (08/25/2023) [place] Safety & Environment Fear of Current or [...] tablet 3 [place] (more content not included)... [facility] 12-01-2023 Note [place] [facility] - [facility] Subjective Marly Jaffe is a [...] breathing, no ral (more content not included)... [facility] 12-01-2023 Note Patient here for [...] All other systems reviewed and are negative. [facility] 06-21-2023 Evaluation note Encounter Date Diagnosis Assessment Notes Jun, Post-nasal drainage (ICD-10 - R09.82) [employer] Other 11-30-2023 Evaluation note* Encounter Date Diagnosis Assessment Notes [...] Imaging and consider ENT referral if needed. [employer] Other 11-22-2023 NotePatient Outreach (INTMMN) JUAN JAFFEGREER Lugo ([id number]) 1955 F Date Time Provider Department 05/25/23 [...] for screening mammogram for breast cancer [Z12.31] Order(s):[facility] SCREENING [[id number]] Order #: [id number] FUTURE Prescriptions as of 05/30/2023 - travoprost [...] at bedtime as needed. - MV with Nop-Qtlyvuwl-Pfhfdm (CENTRUM SILVER) 0.4-300-250 mg-mcg-mcg tab Take 1 [...] (DM) [Z83.3] Postmenopausal atrophic vaginitis [N95.2] Dyspareunia [NIY1439] 11/04/2017 Tobacco user [Z72.0] 05/03/2013 Symptomatic menopausal or female climacteric st* Screening breast examination [Z12.39] 03/30/2011 08/02/2011 Constipation [K59.00] Abnormal mammogram [R92.8] 08/02/2011 11/04/2017 Elevated BP [NDK7947] 08/02/2011 Chest pain [R07.9] 09/17/2011 05/03/2013 Tobacco dependency [F17.200] 09/17/2011 Family history of early CAD [Z82.49] 09/17/2011 Syncope [R55] 09/17/2011 Postmenopausal HRT (hormone replacement therapy*06/05/2012 Screening breast examination [Z12.39] 06/05/2012 05/03/2013 Elevated IOP [H40.059] 05/03/2013 Multiple thyroid nodules [E04.2] 05/03/2013 Family history of colon cancer [Z80.0] 03/28/2017 Smoker [F17.200] 05/03/2017 Bilateral wrist pain [M25.531, M25.532] 07/14/2017 Encounter Status:Closed by TOBIAS, MARCELINAUSER on 05/30/23[facility] 05-19-2023 Evaluation note* Encounter Date Diagnosis Assessment Notes Treatment Notes Treatment Clinical Notes May, Allergic rhinitis, unspecified seasonality, unspecified trigger (ICD-10 - J30.9) [employer] Other 04-20-2023 NoteCONSULTATION CONSULTATION DATE: 10/21/2022 TO: [...] our patients to inform us about any dawr-ivp-fqofvor medications or herbal remedies/nutritional supplements/alternative remedies. 2. [...] with their primary care provider.[facility] [id number] Evaluation note * Encounter Date Diagnosis Assessment Notes Treatment Notes Treatment Clinical Notes Sep, Constipation (ICD-10 - K59.00) Sep, Diverticulosis (ICD-10 - K57.90) Sep, Hemorrhoids (ICD-10 - K64.9) Sep, Other Repeat colonoscopy in 5 yrs [employer] Other 01-26-2023 Procedure [facility] NotePatient Outreach (INTMMN) MARLY JAFFE ([id number]) 1955 F Date Time Provider Department 06/16/22 [...] for screening mammogram for breast cancer [Z12.31] Order(s):[facility] SCREENING [[id number]] Order #: [id number] FUTURE Prescriptions as of 06/21/2022 - omeprazole [...] at bedtime as needed. - MV with Hmo-Fiigymcv-Aiiohm (CENTRUM SILVER) 0.4-300-250 mg-mcg-mcg tab Take 1 [...] (DM) [Z83.3] Postmenopausal atrophic vaginitis [N95.2] Dyspareunia [PFH0282] 11/04/2017 Tobacco user [Z72.0] 05/03/2013 Symptomatic menopausal or female climacteric st* Screening breast examination [Z12.39] 03/30/2011 08/02/2011 Constipation [K59.00] Abnormal mammogram [R92.8] 08/02/2011 11/04/2017 Elevated BP [RGV6694] 08/02/2011 Chest pain [R07.9] 09/17/2011 05/03/2013 Tobacco dependency [F17.200] 09/17/2011 Family history of early CAD [Z82.49] 09/17/2011 Syncope [R55] 09/17/2011 Postmenopausal HRT (hormone replacement therapy*06/05/2012 Screening breast examination [Z12.39] 06/05/2012 05/03/2013 Elevated IOP [H40.059] 05/03/2013 Multiple thyroid nodules [E04.2] 05/03/2013 Family history of colon cancer [Z80.0] 03/28/2017 Smoker [F17.200] 05/03/2017 Bilateral wrist pain [M25.531, M25.532] 07/14/2017 Encounter Status:Closed by FOUZIA OCLLADO on 06/21/22[facility] 05-07-2022 Miscellaneous Notes* Telephone Encounter - Judy Patel MA - 05/07/2022 7:21 AM EDT Pharmacy escribed requesting the following refill. Requested Prescriptions Pending Prescriptions Disp Refills omeprazole (PRILOSEC) 20 mg capsule [Pharmacy Med Name: OMEPRAZOLE DR 20 MG CAPSULE] 90 capsule 1 Sig: TAKE 1 CAPSULE BY MOUTH EVERY DAY Patient last appointment: 08/13/2020 Patient Phone numbers: [phone] (home) Request is for script(s) to be escript to pharmacy. Judy Patel MA documented [facility] [place] NoteCONSULTATION CONSULTATION DATE: 02/10/2022 This is a [...] changes in the weather. She reports her hood maker hours are the worst. She denies any [...] the patient is in agreement.[facility] [id number] NoteCONSULTATION CONSULTATION DATE: 11/26/2021 HISTORY OF PRESENT [...] Patient agrees with the plan of care. [facility] Signed and Approved by: SWEETIE ROBERTS . 12/03/2021 16:05:00[facility]08-13-2020 History of Present illness Narrative* Gail FerrariRn) RN - 02/14/2020 10:00 AM EDT Radiology [...] 9:41 AM documented in this encounter[facility] [place] History of Past illness Narrative* Problem Noted Date Resolved Date Screening breast examination 06/05/2012 Chest pain 09/17/2011 05/03/2013 Abnormal mammogram 08/02/2011 11/04/2017 Screening breast examination 03/30/2011 Colon cancer screening 03/03/2009 2 Degeneration of lumbar or lumbosacral interverte bral disc 01/24/2009 10/22/2013 Dyspareunia 11/04/2017 Tobacco user 05/03/2013 documented as of this encounter (statuses as of 02/01/2022) [facility] [place]12-03-2012 History of Past illness Narrative* Problem Noted Date Resolved Date Screening breast examination 06/05/2012 Chest pain 09/17/2011 05/03/2013 Abnormal mammogram 08/02/2011 11/04/2017 Screening breast examination 03/30/2011 Colon cancer screening 03/03/2009 2 Degeneration of lumbar or lumbosacral interverte bral disc 01/24/2009 10/22/2013 Dyspareunia 11/04/2017 Tobacco user 05/03/2013 documented as of this encounter (statuses as of 05/07/2022) [facility] [place]12-[facility] History of Past illness Narrative* Problem Noted Date Resolved Date Screening breast examination 06/05/2012 Chest pain 09/17/2011 05/03/2013 Abnormal mammogram 08/02/2011 11/04/2017 Screening breast examination 03/30/2011 Colon cancer screening 03/03/2009 2 Degeneration of lumbar or lumbosacral interverte bral disc 01/24/2009 10/22/2013 Dyspareunia 11/04/2017 Tobacco user 05/03/2013 documented as of this encounter (statuses as of 06/21/2022) [facility] [place] History of Past illness Narrative* Problem Noted Date Diagnosed Date Resolved Date Screening breast examination 06/05/2012 05/03/2013 Chest pain 09/17/2011 05/03/2013 Abnormal mammogram 08/02/2011 8 Screening breast examination 03/30/2011 08/02/2011 Colon cancer screening 03/03/200908/02 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 01/24/2009 10/22/2013 Dyspareunia 11/04/2017 Tobacco user 05/03/2013 documented as of this encounter (statuses as of 05/08/2023) [facility] note No data available for this section [facility] Diagnosis Encounter for screening mammogram for breast cancer documented in this encounter [facility] note* Diagnosis Onset Date Resolution Status Encounter for screening colonoscopy [facility] Work Phone: Evaluation note* Diagnosis Chronic mixed headache syndrome Other headache syndromes documented in this encounter [facility] noteNo [facility] [employer] Other Hospital Discharge instructions Additional Instructions DISCHARGE [...] kiwi fruit Repeat colonoscopy in 5 years [facility] Ninite 1 p.o. every morning -Notify the doctor if you have any problems. -Office number [phone] [facility] Work Phone: Hospital Discharge instructions No data available for this section [facility]* Name Dates Details Instructions not documented [facility] Work Phone: Progress note No data available for this section [facility] Center[facility] for referral (narrative)* Diagnostic Procedure Only (Routine) - Pending Review Specialty Diagnoses / Procedures Referred By Zaid gutiérrez Referred To Contact [facility] Diagnoses Encounter for screening mammogram for breast cancer Procedures DOLORES SCREENING SCREENING MAMMOGRAPHY BI 2-VIEW [place] J[place]ía [place] [address] [place] [address] [facility] [address] [place] [address] Referral ID Status Reason Start Date Expiration Date Visits Requested Visits Authorized [id number] Pending Review Auto-Generat ed Referral 2 07/16/2023 1 1 [facility] Diagnostic Procedure Only (Routine) - Closed Specialty Diagnoses / Procedures Referred By Contfredy t Referred To Contact MR IMAGING Diagnoses Chronic mixed headache syndrome G44.89 (ICD-10-CM) - Chronic mixed headache syndrome Procedures MRI BRAIN WO/W IVCON MRI BRAIN COMBO MRI BRAIN WO/[place]CON Jyoti García [place] [address] [place] [address] [place] [address] Referral ID Status Reason Start Date Expiration Date V isits Requested Visits Authorized [id number] Closed Auto-Generate d Referral 02/11/2020 07/03/2020 1 1 [facility] Summary Purpose Family History No Family History Records Found Relationship Condition Age at Onset Recorded Date/T bishop brother Malignant neoplasm of colon Unknown sister Malignant neoplasm of bone Unknown sister Malignant neoplasm of pancreas Unknown Advance Directives No Advanced Directives Records FoundDocuments on File Type Date Recorded 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 Advance Directive(s) 10/31/2018 9:16 AM Advance Directive(s) 12/04/2012 9:42 PM Advance Directive(s) 11/29/2012 9:09 PM Documents on File Type Date Recorded 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 Advance Directive(s) 12/04/2012 9:42 PM Advance Directive(s) 11/29/2012 9:09 PM Documents on File Type Date Recorded 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 Advance Directive(s) 12/04/2012 9:42 PM [...] drainage (R09.82) [facility]erral [facility] Referring Provider First Name Sharonda Referring Provider Last Name Michele Referring Provider Specialty Family [facility] cine Referred Organization [facility] Referred Provider Shaan Villalta Referred Address ,[place], [place],[address] Referred Provider Specialty Ear, Nose an d Throat Referral Priority Routine General Notes Inessa Vitale 02:51:01 PM >received today, notes locked, ins attached, referral faxed Additional Source Comments INFORMATION SOURCE (unrecogn ized section and content) DATE CREATED AUTHOR 11/12/[address] [facility] DATE CREATED AUTHOR AUTHOR'S ORGANIZ ATION 06/18/2019 [facility] DATE CREATED AUTHOR AUTHOR'S ORGANIZ ATION 05/01/2020 [employer] DATE CREATED AUTHOR AUTHOR'S ORGANIZ ATION 08/01/2022 [facility] DATE CREATED AUTHOR AUTHOR'S ORGANIZ ATION 10/26/2022 [facility] DATE CREATED AUTHOR AUTHOR'S ORGANIZ ATION 05/30/2023 [facility] DATE CREATED AUTHOR AUTHOR'S ORGANIZ ATION 07/07/2023 [facility] EPIC DATE CREATED AUTHOR AUTHOR'S ORGANIZ ATION 08/20/2023 [facility] DATE CREATED AUTHOR AUTHOR'S ORGANIZ ATION 09/06/2023 [facility] EPIC DATE CREATED AUTHOR AUTHOR'S ORGANIZ ATION 05/02/2024 [facility] DATE CREATED AUTHOR AUTHOR'S ORGANIZ ATION 07/06/2024 [facility] Source Comments (unrecognize d section and content) In the event this informatio n is protected by the Federal Confidentiality of Alcohol and Drug Abuse Patient Records regulations: The Federal rules restrict any use of the information to criminally investigate or prosecute any alcohol or drug abuse patient.[facility] Dublin[facility] the event this information is protected by the Federal Confidentiality of Alcohol and Drug Abuse Patient Records regulations: The Federal rules restrict any use of the information to criminally investigate or prosecute any alcohol or drug abuse patient.[facility] Dublin[facility] the event this information is protected by the Federal Confidentiality of Alcohol and Drug Abuse Patient Records regulations: The Federal rules restrict any use of the information to criminally investigate or prosecute any alcohol or drug abuse patient.[facility] Dublin[facility] the event this information is protected by the Federal Confidentiality of Alcohol and Drug Abuse Patient Records regulations: The Federal rules restrict any use of the information to criminally investigate or prosecute any alcohol or drug abuse patient.[facility] Reason for Visit (unrecogniz ed section and content) Reason Comments Refill Request Reason Comments Radiology MRI Specialty Diagnoses / Procedures Referred By Contac t Referred To Contact MR IMAGING Diagnoses Chronic mixed headache syndrome G44.89 (ICD-10-CM) - Chronic mixed headache syndrome Procedures MRI BRAIN WO/W IVCON MRI BRAIN COMBO MRI BRAIN WO/[place] Jyoti García [place] [address] [place] [address] [place] [address] Referral ID Status Reason Start Date Expiration Date V isits Requested Visits Authorized [id number] Closed Auto-Generate d Referral 02/11/2020 07/03/2020 1 1 Care Teams (unrecognized sec tion and content) Nickel Operator Relationship Specialty Start Date End Date Jyoti García [place] [address] [place] [address] PCP - General Internal Medicine 09/11/19 Nickel Operator Relationship Specialty Start Date End Date Jyoti García [place] [address] [place] [address] PCP - General Internal Medicine 09/11/19 Nickel Operator Relationship Specialty Start Date End Date Jyoti García [place] [address] [place] [address] PCP - General Internal Medicine 09/11/19 Team Status: Inactive Member Role Status Dates Enrrique Grant MD Attending Provider Active Jameel Manzanares MD Primary Care Provider Active Team Status: Active Member Role Status Dates Jameel Manzanares MD Primary Care Provider Active Nickel Operator Relationship Specialty Start [place] Jyoti [place]ía [place] [address] [place] [address] PCP - General Internal Medicine 09/11/19 FOR [...] BE BASED ON THE PRIMARY CLINICAL RECORDS. [facility] [employer] [facility] provides no warranty or guarantee of the accuracy or completeness of information in this document.
[2024-07-16 14:04] LABS: Anion Gap 12.6; BUN Creatinine Ratio 26.5; Calcium 8.9 mg/dL (8.5-10.1); Carbon Dioxide 30.7 mmol/L (21.0-32.0); Chloride 105 mmol/L (98-107); Estimated GFR (African America >60 (>=60 mL/min/1.73m^2); Estimated GFR (Non-African Ame 54 (>=60 mL/min/1.73m^2); Glucose 57 mg/dL (74-106); Magnesium 2.1 mg/dL (1.8-2.4); Potassium 4.3 mmol/L (3.5-5.1); Sodium 144 mmol/L (136-145)
[2024-07-16 14:29] LABS: Basophils Absolute Auto 0.1 10^3/uL (0.0-0.1); Basophils Percent Auto 0.7 % (0.2-2.0); Eosinophils Absolute Auto 0.1 10^3/uL (0.0-0.7); Eosinophils Percent Auto 1.3 % (0.9-7.0); Hematocrit 44.7 % (36.0-48.0); Hemoglobin 14.6 g/dL (12.0-16.0); Immature Granulocytes Abs Auto 0.01 10^3/uL (0.00-0.03); Immature Granulocytes Pct Auto 0.1 % (0.0-0.5); Lymphocytes Absolute Auto 3.9 10^3/uL (1.2-3.8); Lymphocytes Percent Auto 44.9 % (20.5-60.0); Mean Corpuscular HGB Conc 32.7 g/dL (29.9-35.2); Mean Corpuscular Hemoglobin 32.2 pg (26.7-34.0); Mean Corpuscular Volume 98.5 fL (81.0-99.0); Mean Platelet Volume 10.1 fL (9.5-13.5); Monocytes Absolute Auto 0.7 10^3/uL (0.3-0.8); Monocytes Percent Auto 8.3 % (1.7-12.0); Neutrophils Absolute Auto 3.8 10^3/uL (1.4-6.5); Neutrophils Percent Auto 44.7 % (43.0-75.0); Platelet Count 281 10^3/uL (150-450); Red Blood Count 4.54 10^6/uL (4.20-5.40); Red Cell Distribution Width 13.7 % (11.0-15.0); White Blood Count 8.6 10^3/uL (4.0-11.0)
[2024-07-16 14:32] LABS: Erythrocyte Sedimentation Rate 14 mm/hr (<=30)
[2024-07-17 04:06] LABS: C-Reactive Protein, Cardiac 0.97 mg/L (0.00-3.00)
== END 2024-07-16 12:54 | disposition home or self-care (01) ==
LOC: LAB 12:54
PROVIDERS: PCP Family Medicine; Visit Provider Family Medicine
DX: M79.10 Myalgia, unspecified site (principal); I10 Essential (primary) hypertension; M79.609 Pain in unspecified limb; R20.2 Paresthesia of skin; D50.9 Iron deficiency anemia, unspecified; M54.6 Pain in thoracic spine; M50.30 Other cervical disc degeneration, unspecified cervical region
CPT/HCPCS: 36415; 72072; 80048; 82728; 83735; 85025; 85652; 86140

== ENCOUNTER 2024-08-07 09:41 | Outpatient (OUT) | payer MEDICARE, SELFPAY ==
--- NOTE | 2024-08-07 09:49 | MR_ITS ---
The [address] [address] Patient Name: MARLY JAFFE MRN: [id number] date: 1955 Sex: F Assigned Patient Location: MRI [facility] Access[facility]/Order Number: [id number] Exam Date: 08/07/2024 10:15 Report Date: 08/07/2024 15:45 At the request of: SHARONDA CALIX Procedure: MR head/brain wo con EXAM: MRI of the brain without IV contrast. REASON FOR EXAM: Memory Impairment COMPARISON: None FINDINGS: No intracranial masses. No abnormal restricted diffusion or evidence of evolving infarct. No evidence of intracranial hemorrhage. No hydrocephalus. Mild generalized cerebral and cerebellar volume loss. Mild small vessel gliosis. Paranasal sinuses and mastoid air cells are clear. Remainder unremarkable. MR/MR head/brain wo con IMPRESSION: No acute intracranial abnormalities. Electronically authenticated by: RUCHI CALDERON Date: 08/07/2024 15:45
== END 2024-08-07 09:42 | disposition home or self-care (01) ==
LOC: MRI 09:41
PROVIDERS: PCP Family Medicine; Visit Provider Family Medicine
DX: R41.3 Other amnesia (principal)
CPT/HCPCS: 70551

== ENCOUNTER 2024-08-07 09:42 | Outpatient (OUT) | payer MEDICARE, SELFPAY ==
--- NOTE | 2024-08-07 09:46 | MM_ITS ---
Patient Name: MARLY JAFFE MR#: [id number] : 1955 Exam Date: 08/07/2024 Ordering Doctor: Non-Staff Physician RADIOLOGY REPORT PROCEDURE: MM TOMOSYNTHESIS SCREENING BI COMPARISON: MM TOMOSYNTHESIS SCREENING BI, 07/05/2023. MG MAMM SCREEN 3D [place] CAD, 06/23/2022. MG MAMM DIAGNOSTIC 3D [place] CAD, 06/17/2021. INDICATIONS: Screening Calculator Name NCI Breast Cancer Risk Assessment Tool 5 Year Breast Cancer Risk 1.20% Lifetime Breast Cancer Risk 4.00% Personal Breast Cancer No Personal Ovarian Cancer No Treatments None Family Cancers Sister with liver cancer at age 66; Sister with lung cancer at age 52; Brother with colon cancer at age ~50. LOCATION: [facility] BREAST COMPOSITION: There are scattered areas of fibroglandular density. FINDINGS: DIAGNOSTIC CATEGORY 2--BENIGN FINDING: RIGHT BREAST: No significant suspicious finding. This exam includes additional mammographic views for implant evaluation and shows no visible implant abnormality. No significant change has occurred. LEFT BREAST: No significant suspicious finding. This exam includes additional mammographic views for implant evaluation and shows no visible implant abnormality. No significant change has occurred. RECOMMENDATIONS: ROUTINE MAMMOGRAM AND CLINICAL EVALUATION IN 12 MONTHS. PLEASE NOTE: A NORMAL MAMMOGRAM DOES NOT EXCLUDE THE POSSIBILITY OF BREAST CANCER. A CLINICALLY SUSPICIOUS PALPABLE LUMP SHOULD BE BIOPSIED. Dictated by: Brenden Pugh M.D. on 08/07/2024 at 16:26 Approved by: Brenden Pugh M.D. on 08/07/2024 at 16:29
--- NOTE | 2024-08-07 09:47 | CT_ITS ---
[address] [address] Patient Name: MARLY JAFFE MRN: [id number] date: 1955 Sex: F Assigned Patient Location: MAMMO Current Patient Location: [facility] Accession/Order Number: [id number] Exam Date: 08/07/2024 09:55 Report Date: 08/08/2024 09:20 At the request of: NON-STAFF PHYSICIAN Procedure: CT lung screening low-dose EXAMINATION: CT lung screening low-dose HISTORY: History Of Nicotine Dependence COMPARISON: CT chest 02/11/2023, CT Lung Screening 08/04/2022 TECHNIQUE: Axial, Coronal, and Sagittal images were created without the administration of IV contrast material. Dose reduction techniques were achieved by using automated exposure control and/or adjustment of mA and/or kV according to patient size and/or use of iterative reconstruction technique. FINDINGS: LUNGS: Thick curvilinear stranding opacities within posterior medial lung bases similar to 08/04/2022 which favors chronic scarring. No suspicious nodules or acute infiltrates. No significant emphysematous changes. PLEURA: No mass, effusion, or pneumothorax. VASCULATURE: No abnormality. MARYBEL: No mass or pathologic adenopathy. MEDIASTINUM: No mass or pathologic adenopathy. CARDIAC: No enlargement, pericardial thickening, or pericardial effusion. Coronary Artery calcifications: AORTA: No aneurysm or dissection. CHEST WALL: No mass or axillary adenopathy BONES: No bone lesion or fracture. LIMITED ABDOMEN: No suspicious findings. Limited images of the upper abdomen. OTHER: Negative. CT/CT lung screening low-dose IMPRESSION: 1. Lung-RADS 2- Benign Appearance or Behavior. Nodules with a very low likelihood of becoming a clinically active cancer due to size or lack of growth. Follow-up CT Chest in 1 year. Electronically authenticated by: ÁNGEL ANTHONY Date: 08/08/2024 09:20
--- NOTE | 2024-08-07 11:25 | XR_ITS ---
[address] [address] Patient Name: MARLY JAFFE MRN: [id number]:[id number] date: 1955 Sex: F Assigned Patient Location: [facility] Current Patient Location: [facility] Accession/Order Number: [id number] Exam Date: 08/07/2024 11:15 Report Date: 08/07/2024 11:25 At the request of: NON-STAFF PHYSICIAN Procedure: XR DEXA axial skeleton EXAMINATION: XR DEXA axial skeleton HISTORY: Post Menopause, Osteopenia COMPARISON: DEXA bone densitometry 06/23/2022 TECHNIQUE: Dual-energy X-ray absorptiometry (DXA) was performed. FINDINGS: SPINE ANALYSIS: Average bone mineral density is 1.157 g/cm2. T-score (standard deviation relative to young adult mean): -0.4 . +1.9% change since prior study. HIP ANALYSIS: Lowest bone mineral density is within the right femoral neck, 0.891 g/cm2. T-score (standard deviation relative to young adult mean): -1.1 . +1.3% change since prior study. XR/XR DEXA axial skeleton IMPRESSION: World Health Organization Classification: Osteopenia - Moderate Fracture Risk FRAX: Cannot be calculated. Pharmacologic treatment recommendations * No uniform recommendation applies to all patients. Management plans must be individualized. * Consider initiating pharmacologic treatment in postmenopausal women and men >= 50 years of age who have the following: Primary fracture prevention: * T-score <= - 2.5 at the femoral neck, total hip, lumbar spine, 33% radius (some uncertainty with existing data) by DXA. * Low bone mass (osteopenia: T-score between - 1.0 and - 2.5) at the femoral neck or total hip by DXA with a 10-year hip fracture risk >= 3% or a 10-year major osteoporosis-related fracture risk >= 20% (i.e., clinical vertebral, hip, forearm, or proximal humerus) based on the US-adapted FRAXregistered model. Secondary fracture prevention: * Fracture of the hip or vertebra regardless of BMD [4, 5]. * Fracture of proximal humerus, pelvis, or distal forearm in persons with low bone mass (osteopenia: T-score between - 1.0 and - 2.5). The decision to treat should be individualized in persons with a fracture of the proximal humerus, pelvis, or distal forearm who do not have osteopenia or low BMD [12, 13]. Ivanna MS, Saúl SL, Rohini KL, Renee EM, Yodit KG, AJ, Diane ES. The clinician's guide to prevention and treatment of osteoporosis. Osteoporos Int. 2021;33(10):7345-6583. doi: 10.1007/a05949-492-22494-m. Epub 2021Oct 29. Erratum in: Osteoporos Int. 2021Jan 28;: PMID: 93721084; PMCID: [id number]. Electronically authenticated by: ÁNGEL ANTHONY Date: 08/07/2024 11:25
== END 2024-08-07 09:43 | disposition home or self-care (01) ==
LOC: MAMMO 09:42
PROVIDERS: PCP Family Medicine
DX: Z12.31 Encounter for screening mammogram for malignant neoplasm of breast (principal); Z87.891 Personal history of nicotine dependence; Z12.2 Encounter for screening for malignant neoplasm of respiratory organs; R41.3 Other amnesia; Z78.0 Asymptomatic menopausal state; M85.80 Other specified disorders of bone density and structure, unspecified site; Z80.0 Family history of malignant neoplasm of digestive organs; Z80.1 Family history of malignant neoplasm of trachea, bronchus and lung; Z80.8 Family history of malignant neoplasm of other organs or systems
CPT/HCPCS: 70551; 71271; 77063; 77067; 77080

== ENCOUNTER 2024-08-31 09:13 | Outpatient (OUT) | payer MEDICARE, SELFPAY ==
[2024-08-31 11:01] LABS: Thyroid Stimulating Hormone 1.526 uIU/mL (0.358-3.740)
[2024-09-01 05:07] LABS: Vitamin B12 607 pg/mL (232-1245)
== END 2024-08-31 09:14 | disposition home or self-care (01) ==
LOC: LAB 09:15
PROVIDERS: PCP Family Medicine; Visit Provider Psychiatry & Neurology Neurology
DX: G31.84 Mild cognitive impairment of uncertain or unknown etiology (principal)
CPT/HCPCS: 36415; 82607; 84443

== ENCOUNTER 2025-06-12 10:30 | Outpatient (OUT) | payer MEDICARE, SELFPAY ==
--- OUTSIDE RECORDS SUMMARY | 2025-06-12 05:30 | XMS_ITS | Continuity of Care Document ---
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 Name Role Phone Estelle Bautista MD Primary Care Provider Estelle Bautista MD Attending Provider Care Teams Patient Care Team Team Status: Active Member Role/Relationship Status Dates Estelle Bautista MD Primary Care Provider Active Roque Sevilla Care ProviderActive Visit Care Team Team Status: Inactive Member Role/Relationship Status Dates Estelle Bautista MD Primary Care Provider Active Start: May 24, 2025 End: May 24, 2025Florence Sevilla ProviderActiveStart: May 24, 2025 End: May 24, 2025 Patient Care Team Team Status: Inactive Member Role/Relationship Status Dates Esetlle Bautista MD Primary Care Provider Active Start: June 12, 2025 End: June 12, 2025Florence Sevilla ProviderActiveStart: June 12, 2025 End: June 12, 2025 Chief Complaint and Reason for Visit Chief Complaint Admit Date Wellness May 24, 2025 10:38am Flu Shot June 12, 2025 10:21am Reason for Visit Admit Date Anxiety May 24, 2025 10:38am Benign essential HTN May 24, 2025 10:38am Irritable bowel syndrome with diarrhea N ov2024 10:38am REM sleep behavior disorder May 10:38am Sinusitis, acute maxillary May 10:38am Wellness examination May 24, 2025 10:38am Allergies, Adverse Reactions, Alerts Allergen Type Severity Reaction Last Updated Verified Status Comments baclofen Allergy Moderate Rash May 24, 2025 10:46am Yes Active gabapentinAllergyModerateRashNovember 2024 10:46amYesActiveBlister type rashprochlorperazineAllergyUnknownUnknown ReactionNovember 2024 10:46amYes ActivesulfacetamideAllergyUnknownHivesNovember 2024 10:46amYesActivesulfur AllergyUnknownHivesNovember 2024 10:46amYesActiveamoxicillinAllergyUnknown RashNovember 2024 10:46amYesActiveSulfa (Sulfonamide Antibiotics)Allergy UnknownUnknown ReactionNovember 2024 10:46amYesActivecelecoxibAdverse ReactionUnknownPalpitationsNovember 2024 10:46amYesActivemeloxicamAdverse ReactionUnknownPalpitationsNovember 2024 10:46amYesActivemethocarbamol Adverse ReactionUnknownPalpitationsNovember 2024 10:46amYesActive Social History Smoking Status Status Start Date End Date Date of Observa tion Smokes tobacco daily (finding) December 05, 2024 11:16am Observation Status Observation Response Date of Response Legal Sex Female (finding) Sex Assigned At BirthFemaleSept1954 Family History Relationship Condition Age at Onset Recorded Date/T bishop brother Malignant neoplasm of colon Unknown sisterMalignant neoplasm of boneUnknownsisterMalignant neoplasm of pancreas UnknownfatherDeceasedUnknown Problems Active Problems Problem Diagnosis/Recorded Date Onset Date Status C omments Paresthesia and pain of righ t extremity July 13, 2024 11:32am Unknown Active Sinusitis, acute maxillaryJanuary 2024 2:46pmUnknownActiveMyalgiaJanuary 2024 11:32amUnknownActiveBack muscle spasmApril 2023 11:54amUnknown ActiveBenign essential HTNOctober 2023 7:35amUnknownActiveWeight gain, abnormalJuly 2023 12:42pmUnknownActiveAnxietyJanuary 2022 9:41am UnknownActiveProblem List clean-up per request of Phys. EHR CmteDysuriaApril 2023 2:24pmUnknownActiveWellness examinationNovember 2024 12:48pm UnknownActiveLumbosacral spondylosisJanuary 2024 2:47pmUnknownActiveREM sleep behavior disorderNovember 2024 12:49pmUnknownActiveIron deficiency anemiaJanuary 2024 11:33amUnknownActiveMemory changesJanuary 2024 2:50pmUnknownActiveIrritable bowel syndrome with diarrheaNovember 2024 1:16pmUnknownActiveRecurrent cold soresJune 2024 1:30pmUnknownActive Thoracic back painJanuary 2024 11:34amUnknownActiveGERD (gastroesophageal reflux disease)July 29, 2022 9:42amUnknownActiveProblem List clean-up per request of Phys. EHR CmteHair loss disorderJuly 2023 12:42pmUnknownActive AsthmaApril 2023 11:54amUnknownActiveInactive/Resolved Problems Problem Diagnosis/Recorded Date Onset Date Status C omments Contact dermatitis due to plant December 07, 2024 1:29pm Unkn own Resolved Encounter for screening colonoscopyJanuary 2022 6:00pmUnknownResolved Problem List clean-up per request of Phys. EHR Cmte Medications Medication Status Dose Units Route Directions Qty Days Refills S tart Date Stop Date End Date Reason(s) Instructions Adherence Alprazolam 1 mg tablet Discontinued 1 MG PO Three times steven ly as needed for anxiety 90 30 0 August 19, 2023 1:41pm October 24, 2023 1:53pmAnxiety Anxiety disorder, unspecifiedCiprofloxacin Hcl 250 mg dsynrdTcutrymnztlr996GBLY Twice ealhz259Ktian 2023 11:00pmApril 2023 1:10pmOmeprazole 20 mg tablet,delayed release (DR/EC)Iibfppykvspr13XVREOqbnp030Lwqun 2023 9:59am October 24, 2023 1:19pmAlprazolam 1 mg rojpotYawphlstbhdp7ZHVIOgwak times daily as needed for hvgaatf96002Pqo 2023 7:41amJuly 2023 7:25amAnxiety Anxiety disorder, unspecifiedOmeprazole 20 mg tablet,delayed release (DR/EC) Bbvemqazbxha16RODLBozpc094Kfn 2023 7:44amJune 2023 2:36pmAmlodipine 5 mg pvuwroWwegmdqnmojd1QBOJIjhrh256Kju 2023 10:29amOctober 2023 9:07amFreeTextSi tablet once a day; Note: Source Status: Taking; Provider: Michele Mccabe ( )Omeprazole 20 mg tablet,delayed release (DR/EC) Ruvkxetwawtr13KEMXDhiqb266Rgpa 2023 2:36pmAugust 2023 9:15am Alprazolam 1 mg takzljMqpedcstnsrn1QLEUUoahl times daily as needed for 300July 2023 7:25amAugust 2023 7:13amAnxiety Anxiety disorder, unspecifiedOmeprazole 20 mg tablet,delayed release (DR/EC) Vtkorlellxao58ZNONSoalm986Ecwedj 2023 9:13amNovember 2023 3:27pm Albuterol Sulfate 90 mcg/actuation HFA aerosol inhalerActive0.ROUTE.COMPLEX8.51 February 20, 2024 7:34amINHALE 2 PUFFS BY MOUTH EVERY 4 HOURS NEEDEDUnknown Alprazolam 1 mg tctpxcGxjuahpmkgab2PAVRRrgyq times daily as needed for tgzgubz64 300August 2023 7:13amOctober 2023 9:45pmAnxiety Anxiety disorder, unspecifiedAlprazolam 1 mg xmkzknOgptjztjmbra2OICRIhxav times daily as needed for bdmurok12399Ujenohd 2023 9:45pmNovember 2023 1:09pmAnxiety Anxiety disorder, unspecifiedAlendronate 35 mg sdkderOrjasyfxtlkq47AQXCjlycy xtts191Mcutrlc 2023 9:25amMarch 2024 11:54amMontelukast 10 mg tablet Discontinued0.ROUTE.IOYBMXH593Rrmkyyvq 18th, 2024 8:26amMay 2024 10:03am TAKE 1 TABLET BY MOUTH EVERY DAYOmeprazole 20 mg capsule,delayed release(DR/EC) Discontinued0.ROUTE.YTEKHXP902Bptfnomf 2023 3:27pmJanuary 2024 11:36amTAKE 1 CAPSULE BY MOUTH EVERY DAYAlprazolam 1 mg klblngQagwpuzbrbkg6JLXB Three times daily as needed for stemiel65698Vriqnspx 2023 1:09pmJanuary 2024 12:22pmAnxiety Anxiety disorder, unspecifiedAlprazolam 1 mg ueffroEnverhqximhy6LHMJHapcn times daily as needed for irhomnm29663Qvjamtj 2024 12:21pmFebruary 2024 10:24amAnxiety Anxiety disorder, unspecifiedMetoprolol Succinate 25 mg tablet extended release 24 vnAwsqtqcukvrt90VJCHIsfat759Brsxnxm 2024 12:21pmJuly 2024 3:27pm Alprazolam 1 mg dijvwgDbycexfhdgpm8IHGACtklu times daily as needed for gzdwtup68 300February 2024 10:24amMarch 2024 11:57amAnxiety Anxiety disorder, unspecifiedAlendronate 35 mg jgavcfOrmadtnbcgai04YZIRdjvnm tecb223Juvmh 2024 11:54amJune 2024 7:21amAlprazolam 1 mg tablet Jykmhhzbrbfr6FILZTytda times daily as needed for qyldnwd69724Oyyqh 2024 11:57amMay 2024 12:58pmAnxiety Anxiety disorder, unspecifiedOmeprazole 20 mg capsule,delayed release(DR/EC) Dgvccguuxesc99QADAApmqu bdceo3534Pmzkt 2024 7:28amJune 2024 10:16am Alprazolam 1 mg hhdzwhZnubvllykusd1RDQKScfah times daily as needed for aevpkgl82 300May 2024 12:58pmJune 2024 10:33amAnxiety Anxiety disorder, unspecifiedMontelukast 10 mg tabletDiscontinued0.ROUTE.COMPLEX 900May 2024 10:03amSeptember 2024 7:25amTAKE 1 TABLET BY MOUTH EVERY DAYAlendronate 35 mg pyporaJmtefwbbbyhe65ZLWYmlxkl xgzv974Pgdn2024 7:21am May 09, 2025 1:06pmAlprazolam 1 mg eqayivEjkdwolmxryw3DVKLPytof times daily as needed for bvxlvdi20690Oazb 2024 10:33amAugust 2024 2:26pm Anxiety Anxiety disorder, unspecifiedMetoprolol Succinate 25 mg tablet extended release 24 agDyeazcahjkqj35TSOQYpzei975Mwpy 2024 3:27pmNov2024 10:48am Alprazolam 1 mg rnyfsyQnslkcsfjdgh7YUMBZmfqq times daily as needed for vxyogzo54 300August 2024 2:26pmSeptember 2024 7:25amAnxiety Anxiety disorder, unspecifiedFluticasone Propionate 50 mcg/actuation spray,gfogzdikqiHgopcv0AYUDYBPOULKZCSQFiyns84Fjiifa 2024 9:24amUnknown Alprazolam 1 mg nsjkczLfvgrnqpcjkl4EBNGLhpna times daily as needed for csapcxw10 300September 2024 7:25amNovember 2024 9:36amAnxiety Anxiety disorder, unspecifiedMontelukast 10 mg tabletActive0.ROUTE.HPXFGAE791 March 29, 2025 7:25amTAKE 1 TABLET BY MOUTH EVERY DAYUnknownOmeprazole 20 mg capsule,delayed release(DR/EC)Active0.ROUTE.CEOGMNS9443Jyxtgph 2024 2:13pmTAKE 1 CAPSULE BY MOUTH TWICE A DAYUnknownAlendronate 35 mg tabletActive0 .ROUTE.CPLFQBQ044Gsycbmyg 6th, 2025 1:06pmTAKE 1 TABLET BY MOUTH ONCE EVERY WEEK UnknownAlprazolam 1 mg jcxarcQzceyj4FCDTMufzu times daily as needed for anxiety 59685Tgywwbhz 2024 9:36amAnxiety Anxiety disorder, unspecifiedUnknownMultivitamin FxqpyxAoqnzzljdsgj9BCOIOCyrij July 29, 2022 12:00amJune 2024 10:15amAscorbic Acid (Vitamin C) (Vitamin C) 1,000 mg SvmbedGvxwky8MUOJSggyzPjorzxw 2022 12:00amUnknown Alprazolam 1 mg mzxwoeAntmsgzcnrrm3NIJGVlqptGsyhpzp 2022 12:00amFebruary 2023 1:42pmTravoprost 0.004 % EowsgMpjspgvkayrr6SEDPFRYN-EBIEKtmds evening July 29, 2022 12:00amJanuary 2024 11:02amFexofenadine 180 mg Tablet Wuhuiphgicxc133YZGRGesusOrfpxrq 2022 12:00amApril 2023 1:11pm Baclofen 20 mg lnrvgoRblicwsexqsn26WHWMVgihsLspogdv 2022 12:00amApril 2023 1:09pmCalcium Carbonate 500 mg calcium (1,250 mg) TabletDiscontinued 500MGPODageorge c. grape community hospitalJanuary 2022 12:00amApril 2023 1:10pmIbuprofen (Advil) 200 mg WbodxbOoarbc271DRTPWgqcfHosagrl 2022 12:00amUnknownVitamin B Complex UtoscaOmepqlacfadj6LWXNLZpoihXoiidzv 2022 12:00amApril 2023 1:12pmBisacodyl (Dulcolax (Bisacodyl)) 5 mg Tablet,Delayed Release (Dr/Ec) Uuqneoeeiblq4RYAHUtuaf at bedtimeJuluary 2022 12:00amApril 2023 1:10pmCoenzyme Q10 (Co Q-10) 100 mg QjfihmtBcglqnxervgr886TUQDImimiWzxuvql 2022 12:00amApril 2023 1:10pmGlucosamine-Chondroitin (Osteo Bi-Flex) 250- 200 mg IwxvvkXucgnmyooawe0EFMBXkhfbs mealsJuluary 2022 12:00amApril 2023 1:11pmOmega-3 Fatty Acids CznrtiqAgrurwkfbsqj5641LKBEAgdymNmbuaww 2022 12:00amApril 2023 1:12pmMagnesium FavvweWwvzhqdlixnc8FEDKTZddth July 29, 2022 12:00amNovember 2024 10:47amOmeprazole 20 mg Tablet,Delayed Release (Dr/Ec)Ylclhvzpxuxx17FJBOZnpikCrzpdcf 2022 12:00am October 17, 2023 10:00amCholecalciferol (Vitamin D3) (Vitamin D3) 50 mcg (2,000 unit) MdpsxeiJlpzlb83AJUYYYluorVbqtlxc 2022 12:00amUnknownAspirin 81 mg WdynohwMcxesb91CPAINzmwhDepuevt 2022 12:00amUnknownLatanoprost 0.005 % zhsqhWxnbyv7EWXPRJDG-SFGQBozpzIaut 2023 11:00pmUnknownOmeprazole 20 mg capsule,delayed release(DR/EC)Fcrwfobsfjbb74BBDXHicwiHfyw 2024 10:16am April 15, 2025 2:13pmPrednisone 10 mg tgqpdeUffxqmmgjhzx37QJOQMb Wvsxnbgm527 December 04, 2024 11:00pmNovember 2024 10:48am4 daily x 2 days, 3 daily x 2 days, 2 daily x 2 days, 1 daily x 6 daysValacyclovir (Valtrex) 1 gram tablet Kwdcrzffdqlu6481LJKPKrppj cpwwj49Muqv 3rd, 2025 11:00pmNovember 2024 10:48amAlendronate 35 mg hcfdndXxqswqnxyekm72FPZBrbleq weekFebruary 2023 12:00amFebruary 2023 10:01amAlendronate 35 mg qheewnXsnekvojwcwj05FBCM every bwhw626Uzugnwfz 2023 10:00amOctober 2023 9:25amOmeprazole 20 mg tablet,delayed release (DR/EC)Gzlwkzkjbfbq73FSCZFngopVolts 2023 1:12pm November 24, 2023 7:44amFamotidine 20 mg dvmonyXpgvppsybldr89XSOJKvjbxQzuhw 2023 11:00pmJanuary 2024 11:02amMontelukast 10 mg avsncqVxitnvanztwc45WSYN DailyApril 2023 11:00pmNovember 2023 8:27amFreeTextSi tablet once a day; Note: Source Status: Taking; Provider: Michele Mccabe (NPI: [id number])Metoprolol Succinate 25 mg tablet extended release 24 pzWkhxhhimtacq42FYBZ DailyApril 2023 11:00pmJan2024 12:23pmFreeTextSi tablet once a day; Note: Source Status: Taking; Provider: Michele Mccabe ( ) Amlodipine 5 mg trfpbuUicrtimcrhiw7DDIWDxsuwDyxag 2023 11:00pmMay 2023 10:29amFreeTextSi tablet once a day; Note: Source Status: Taking; Provider: Michele Mccabe ( )Albuterol Sulfate 90 mcg/actuation HFA aerosol rtycxyvJjmxswxynykh9MJUOPHTRNRLYZBWybhr 4 hoursApril 2023 11:00pm October 24, 2023 1:53pmFreeTextSi puff Inhalation every 4 hrs prn; Note: Source Status: Taking; Refills: 0; Qty: 1 Each; Provider: Michele Bill Alprazolam 1 mg qzesexPzxpzzukoswz3UIBJPeowa times daily as needed for jabsaao02 300April 2023 1:52pmMay 2023 7:41amAnxiety Anxiety disorder, unspecifiedAlbuterol Sulfate 90 mcg/actuation HFA aerosol mpngrqgTbldznywbqxs4BNXYZFGIEJMDLPPkhma 4 hours8.51April 2023 1:53pmAugust 2023 7:34amFreeTextSi puff Inhalation every 4 hrs prn; Note: Source Status: Taking; Refills: 0; Qty: 1 Each; Provider: Michele Mccabe EFluticasone Propionate 50 mcg/actuation spray,suspensionDiscontinuedINTRANASALOctober 2023 11:00pmAugust 2024 9:25amBaclofen 10 mg waayprSjveqh26OELXYmzue times daily as neededOctober 2023 11:00pmUnknownOmega 2-Zwj-Bwb-Fish Oil (Fish Oil) 100-160-1,000 mg capsuleActiveCAPPOOctober 2023 11:00pmUnknown Omeprazole 20 mg capsule,delayed release(DR/EC)Sqphjtuteeli28NPHOMqizx rhade8335 July 13, 2024 11:36amApril 8th, 2025 7:28amAzithromycin 250 mg tablet Ixgptpvuvgfz1NV.FIKWLLW85NoslgvfJuly 13, 2024 12:00amFebruary 2024 8:29amFor 250 mg dose pack: take 500 mg today (day 1), then 250 mg for 4 days (days 2-5) POGabapentin 300 mg rothxlmIzmzdotsrjxl698HCOLQoxke times dailyFe2024 12:00amJune 2024 10:15amMetoprolol Tartrate 25 mg qnpeyeRgzgwz20VCQK Twice dailyMay 24, 2025 12:00amUnknownAzithromycin 250 mg nkixaqXxrqvn3MA .EXPKUBN18YmzoneoiMay 24, 2025 12:00amFor 250 mg dose pack: take 500 mg today (day 1), then 250 mg for 4 days (days 2-5) POUnknownLubiprostone (Amitiza) 8 mcg jfycpahSfftvx3QROLHRcomg692Ultcsdpj 21st, 2025 12:00amUnknown Immunizations Immunization Event Date Not Given Reason Dose Number [employer]illing [employer]in[employer] Lot Number Reason(s) Given Vaccine Information Statement (VIS) Detail Administration Location Fluzone TIV High-Dose 65YR+ June 12, 2025 [id number] [facility], unspecified formulationMay 19, 2023 Vital Signs Vital Reading Result Reference Range Collection Date/Time Height 63 [in_i] May 24, 2025 10:31ouSvqmmt89.50 kgMay 24, 2025 10:45amHeart Rate67 /fdj40-817EohvczgbMay 24, 2025 10:45amRespiratory rate12 /vyn87-55TaxnfiypMay 24, 2025 10:45amOxygen saturation by Pulse dqgjyvky76 %95-100May 24, 2025 10:45amBP Pecwphws418 mm[Hg]100-140May 24, 2025 10:45amBP Guskxbzer64 mm[Hg]60-100May 24, 2025 10:45amBMI (Body Mass Index)24.7 kg/q0RwormzbyMay 24, 2025 10:45am Advance Directives Advance Directive Response Recorded Date/ Time Advance Directives No July 28, 2022 2:19pm Insurance Providers Guarantor Ann Marie Mccain Address [address] [place] [id number] Info.Home Phone: Payer Group Member ID Coverage Type Subscriber Relationship to Subscriber Effective Date Expiration Date Kathy MULLEN Id: [id number] Stout Id: [id number] [address] [facility] [address] [place] [address] Home Phone: Email: [email or web address] Encounters Encounter Location(s) Arrival/Admit Date Discharge/Departure Date Discharge/Departure Disposition Provider(s) Departed Physician/ Provider Office Visit -[facility] May 24, 2025 10:38am May 24, 2025 11:46am Discharged to home care or self care (routine discharge) Estelle Bautista MD Departed Physician/ Provider Office Visit -[facility] June 12, 2025 10:21am June 12, 2025 10:28am Discharged to home care or self care (routine discharge) Estelle Bautista MD Recent Diagnosis Onset Date Admit Date Anxiety Unknown May 24, 2 025 10:38am Benign essential HTN Unknown May 242024 10:38am Irritable bowel syndrome with diarrhea Unknown May 24, 2025 10:38am REM sleep behavior disorder Unknown Nov mb2024 10:38am Sinusitis, acute maxillary Unknown Novem 2024 10:38am Wellness examination Unknown May 242024 10:38am Assessments Diagnosis Onset Date Resolution Status Admit Date Anxiety acuteMay 24, 2025 10:38amBenign essential HTNacuteNov2024 10:38amIrritable bowel syndrome with diarrheaacuteNov2024 10:38amREM sleep behavior disorderacuteNov2024 10:38amSinusitis, acute maxillaryacuteNov2024 10:38amWellness examinationacuteMay 24, 2025 10:38am Plan of Treatment Author Estelle Bautista [facility] CenterAuthoredNovember 2024 1:16pmPersonalized health advice was given to the beneficiary to health education of preventative counseling services or programs aimed at reducing identified risk factors and improving self-management or community-based lifestyle interventions to reduce health risks and promote self-management and wellness, including physical activity and nutrition. Pt agrees to HST to evaluate this problem of waking w gasping and tachycardia. Reviewed reports from Dr. Petersen. Discussed diagnosis with patient. Instructed to take ATB as directed and complete entire course even if asymptomatic. OTC Tylenol or ibuprofen for discomfort. Saline nasal spray prn congestion. Flonase nasal spray prn congestion. OTC cough medication prn cough. Push fluids and rest. Cool mist humidifier. Immediate evaluation if worsening symptoms. Patient to notify office should symptoms persist or not improve. Pt verbalizes understanding and agrees with tx plan. stable on metoprolol. [place]ed [place]. Signed controlled substance contract earlier this year. Discussed decreasing amount of xanax. Pt refuses and prefers to continue #90/month at this time. Notes stressors including chronic back pain. Declines referral to counseling or psych. pt states linzess was not covered, will trial amitiza. Future Tests Future scheduled test information is unavailable Pending Tests Pending diagnostic test information is unavailable Future Visits Future appointment information is unavailable Future Procedures Future procedure information is unavailable Future Medications Future medication information is unavailable Patient Instructions Patient instructions are unavailable
--- OUTSIDE RECORDS SUMMARY | 2025-06-13 09:45 | XMS_ITS | CCD ---
Author Organization [facility] Care Team Providers Care In Process Inspector Name Role Phone MARNIE EWRIN Attending Unavailable Abbass, Rami Unavailable Unavailable Unknown, Referring Provider Unavailable Unav ailable Abbass, Rami Unavailable Unavailable Chaya PAUL, Rami Unavailable Unavailable Unknown, Referring Provider Unavailable Unav ailable Raquel PAUL, Jyoti Lugo Primary Care Provider Jyoti Jung MD Primary Care Provider Jyoti Jung MD Primary Care Provider [phone] MD Enrrique Brantley Attending Provider MD Jameel Massey Primary Care Provider Enrrique Brantley Attending UnavailEnrrique Contreras Admitting Unavailabl e Bryson, Jameel Primary Care Unavailable Enrrique Brantley Unavailable ROSANA ., DR ANTONELLA Lugo Consulting Unavailable NADERER, DR JAMEEL Ellis Primary Care Unavailable WAYNE ., DR ANTONELLA Lugo Attending Unavailable WAYNE ., DR ANTONELLA Lugo Admitting Unavailable ZIEBRAKESH, DR ÁNGEL Verduzco Consulting Unavailable NADERER, DR JAMEEL Ellis Primary Care Unavailable NADERER, DR JAMEEL Ellis Attending Unavailable NADERER, DR JAMEEL Ellis Admitting Unavailable NADERER, DR JAMEEL Ellis Consulting Unavailable MARQUIS HAN Consulting Unavailable NADERER, DR JAMEEL Ellis Primary Care Unavailable MARQUIS HAN Attending Unavailable MARQUIS HAN Admitting Unavailable KARASIK ., DR MADRID Consulting Unavailabl e NADERER, DR JAMEEL Ellis Primary Care Unavailable KARASIK ., DR MADRID Attending Unavailabl e KARASIK ., DR MADIRD Admitting Unavailabl e ZIEBER, DR ÁNGEL Verduzco [...] Attending Unavailable Timmis, Shaan H Referring Unavailable Viridiana PAUL, Jim Mckay Attending Unavailable Sharonda Calix MD Primary Care Provider [phone] Michele PAUL, Sharonda Unavailable Sharonda Calix MD Primary Care Provider Sharonda Calix MD Unavailable PILI FUNG Attending Unavailable SHARONDA CALIX Referring Unavailable LOGAN GUILLEN Attending Unavailable PILI FUNG Referring Unavailable PILI FUNG Attending Unavailable GUILLE, MARQUIS Referring Unavailable LÓPEZ, JARAD Referring Unavailable LÓPEZ, JARAD Referring Unavailable GUILLE, MARQUIS Referring Unavailable LÓPEZ, JARAD Referring Unavailable LÓPEZ, JARAD Referring Unavailable GUILLE, MARQUIS Referring Unavailable LÓPEZ, JARAD Referring Unavailable LÓPEZ, JARAD Referring Unavailable GUILLE, MARQUIS Attending Unavailable KARLOS BROWN Referring Unavailable GUILLE, MARQUIS Attending Unavailable CHRISTINAKAYY Attending Unavailable GUILLE, MARQUIS Referring Unavailable GUILLE, MARQUIS Referring Unavailable GUILLE, MARQUIS Referring Unavailable GUILLE, MARQUIS Referring Unavailable GUILLE, MARQUIS Referring Unavailable GUILLE, MARQUIS Referring Unavailable GUILLE, MARQUIS Referring Unavailable GUILLE, MARQUIS Referring Unavailable Allergies Allergy ClassificationReported Allergen(s)Allergy TypeDate of OnsetReaction(s) FacilityProchlorperazine (1 source)ProchlorperazineDrug AllergyCentury City [facility] Work Phone: Sulfonamides (antibiotic) (1 source)Sulfonamides (Antibiotic)Drug AllergyCent[facility] City [facility]Nov[facility] Work Phone: (5 sources)Hydroxychloroquine; Translations: [HYDROXYCHLOROQUINE SULFATE]Drug Crsxbha56-73-2111ZmrzNrvxoepovOhioHealth Mansfield Hospital Repository (12 sources)Sulfonamides (Antibiotic); Translations: [SULFA (SULFONAMIDE ANTIBIOTICS)]Propensity to adverse reactions to drug (disorder)21-34-1397Hsdiyja ReactionCleveland Clinic Children[facility] Repository (15 sources)AMOXICILLIN-POT CLAVULANATE; Translations: [AMOXICILLIN-POT CLAVULANATE]Propensity to adverse reactions to drug (disorder)47-70-6565UfroAcmc Healthcare [facility] Repository (5 sources)PROCHLORPERAZINE EDISYLATE; Translations: [PROCHLORPERAZINE EDISYLATE]Propensity to adverse reactions to drug (disorder)31-90-0492JqazhefdvCleveland Clinic Children'S Hospital [facility] Repository (4 sources)Sulfonamides (Antibiotic)drug allergyCentury City Hospital GastroenterologyGro[facility] Work Phone: (1 source)drug allergyCentury City Hospital GastroenterNov[facility] Work Phone: (13 sources)Prochlorperazine; Translations: [Compazine]Drug AllergyUnknownThe [facility] Repository (19 sources)Prochlorperazine; Translations: [PROCHLORPERAZINE]Drug Allergy 04-02-1371Kakia: See [facility] (14 sources)traMADol; Translations: [TRAMADOL]Drug Lrvpncq79-03-0744Clbtbstqiam, GI Upset, [facility] (1 source)ProchlorperazineDrug Waknnzk39-22-0769OsilxigxpCorey Hospital Repository (9 sources)Sulfacetamide / SulfurDrug AllergyUnkSainte Genevieve [facility] ArthroCAD Other (1 source)Sulfonamides (Antibiotic)Drug allergy (disorder)[facility] Repository (13 sources)celecoxib; Translations: [CELECOXIB]Drug Uiayahk71-10-4297 [facility]Pro[facility] Repository (3 sources)meloxicam; Translations: [MELOXICAM]Drug Skelmuu23-36-2575 PalpitationsProMedica Repository (13 sources)Methocarbamol; Translations: [METHOCARBAMOL]Drug Rqvfmvu32-16-1747 PalpitationsProMedica Repository (1 source)Penicillins; Translations: [PENICILLINS]Propensity to adverse reactions to drug (disorder)04-45-5960NvnZnbqmg Repository (12 sources)SulfacetamideDrug Abfpryo72-53-7441KfjyxIoevkwehoUniversity Hospitals Portage [facility] Center (4 sources)Sulfur; Translations: [SULFUR]Drug Cawakir86-99-1263NiinoAmoqditxlUniversity Hospitals Portage Medical Center (10 sources)Hydroxychloroquine; Translations: [HYDROXYCHLOROQUINE]Drug Allergy 87-12-9147DvuyAVRKRay County Memorial Hospital (2 sources)AmoxicillinDrug Jmyhsiw78-59-6174OmobNwjrspsjuMercy Health St. Rita's Medical Center (2 sources)Baclofen; Translations: [BACLOFEN]Drug Hioexap40-38-4633CkraSyqhsxbrlMercy Health St. Rita's Medical Center (2 sources)gabapentin; Translations: [GABAPENTIN]Drug Joefjgl02-61-4917PjyuTrihealth Bethesda Butler HospitalComment on above:Blister type rash Medications Current Medications MedicationDrug Class(es)DatesSig (Normalized)Sig (Original)[id number] 200 actuat albuterol 0.09 mg/actuat metered dose inhaler (20 sources)beta2-Adrenergic AgonistStart: 52-87-8130peqd 2 puff(s) by mouth every four hours as neededAlbuterol Sulfate 90 mcg/actuation HFA aerosol inhaler Active 0 .ROUTE .COMPLEX 8.5 February 20, 2024 8:34am INHALE 2 PUFFS BY MOUTH EVERY 4 HOURS NEEDEDStart: 10-24-2023 End: 79-69-3363ywjw 2 puff(s) by inhalation every four hours as neededAlbuterol Sulfate 90 mcg/actuation HFA aerosol inhaler Discontinued 2 PUFF INHALATION Every 4 hours8.5 October 24, 2023 2:53pm February 20, 2024 8:34am FreeTextSi puff Inhalation every 4 hrs prn; Note: Source Status: Taking; Refills: 0; Qty: 1 Each; Provider: Michele Mccabe EStart: 09-88-2441gtcz 2 puff(s) by inhalation every four hours as neededAlbuterol Sulfate HFA 108 (90 Base) MCG/ACT 2 puff Inhalation every 4 hrs prn 30 May, 2023 ActiveStart: 03-97-7577pmqn 2 puff(s) by inhalation every four hours as neededAlbuterol Sulfate HFA 108 (90 Base) MCG/ACT 2 puff Inhalation every 4 hrs prn May, ActiveStart: 06-19-2020 take 2 puff(s) by inhalation every four hours as needed for wheezingalbuterol HFA (PROVENTIL HFA, VENTOLIN HFA) 90 mcg/actuation inhaler Inhale 2 Puffs as instructed every 4 hours as needed for Wheezing/Shortness of Breath. 6.7 g 4 06/19/2020 ActiveStart: 09-11-2019 End: 45-29-7847qaoj 2 puff(s) by inhalation every four hours as needed for wheezingalbuterol HFA (PROVENTIL HFA, VENTOLIN HFA) 90 mcg/actuation inhaler Inhale 2 Puffs as instructed every 4 hours as needed for Wheezing/Shortness of Breath. 1 Inhaler 0 09/11/2019 06/19/2020 Discontinuedtake 2 puff(s) by inhalation every four hours for wheezingalbuterol HFA 90 mcg/act inhaler Inhale 2 puffs every 4 (four) hours if needed for wheezing ActiveComment on above: Inhale 2 Puffs as instructed every 4 hours as needed for Wheezing/Shortness of Breath.amoxicillin 875 mg / clavulanate 125 mg oral tablet (8 sources)Penicillin-class AntibacterialStart: 33-58-9841dots 1 tablet by mouth every twelve hoursAmoxicillin-Pot Clavulanate 875-125 MG 1 tablet Orally every 12 hrs for 10 day(s) Apr, Activeascorbic acid 1000 mg oral tablet (20 sources)Vitamin CStart: 09-47-9418nmol 1 g by mouth once dailyAscorbic Acid (Vitamin C) (Vitamin C) 1,000 mg Tablet Active 1 GM PO Daily July 29, 2022 1:00amtake 1 tablet by mouth once dailyAscorbic Acid (vitamin C) 250 MG tablet Take 250 mg by mouth Daily ActiveVitamin C Activeaspirin 81 mg oral tablet (20 sources)Platelet Aggregation Inhibitor, Nonsteroidal Anti-inflammatory Drug Start: 73-09-2842nyjh 1 capsule by mouth once dailyAspirin 81 mg Capsule Active 81 MG PO Daily July 29, 2022 1:00amStart: 52-23-0518uyzs 1 tablet by mouth once dailyaspirin, enteric coated (ADULT LOW DOSE ASPIRIN) 81 mg EC tablet Take 1 tablet by mouth once daily.0 03/28/2017 ActiveAspirin 81 ActiveComment on above:Take 1 tablet by mouth once daily.B Complex (9 sources)B Complex Activeb complex vitamins capsule (9 sources)take 1 capsule by mouth once dailyb complex vitamins capsule Take 1 capsule by mouth Daily Activetake 1 capsule by mouth in the morningb complex vitamins capsule Take 1 capsule by mouth in the morning. Activebaclofen 10 mg oral tablet (8 sources)gamma-Aminobutyric Acid-ergic AgonistStart: 58-28-0527kvrf 1 tablet by mouth three times daily as neededBaclofen 10 mg tablet Active 10 MG PO Three times daily as needed April 18, 2024 12:00amStart: 07-29-2022 End: 78-72-1913slii 1 tablet by mouth once dailyBaclofen 20 mg tablet Discontinued 20 MG PO Daily July 29, 2022 1:00am October 24, 2023 2:09pm cholecalciferol 0.05 mg oral capsule (17 sources)Vitamin DStart: 00-45-7305uevx 1 capsule by mouth once daily Cholecalciferol (Vitamin D3) (Vitamin D3) 50 mcg (2,000 unit) Capsule Active 50 MCG PO Daily July 29, 2022 1:00amStart: 56-12-5981uqmg 1 capsule by mouth once dailyCholecalciferol, Vitamin D3, 2,000 unit cap Take 2,000 Units by mouth once daily. 0 03/28/2017 Activetake 1 capsule by mouth once dailycholecalciferol (Vitamin D-3) 25 MCG (1000 UT) capsule Take 1,000 Units by mouth Daily Active take 1 capsule by mouth in the morningcholecalciferol (Vitamin D-3) 25 MCG (1000 UT) capsule Take 1,000 Units by mouth in the morning. ActiveComment on above: Take 2,000 Units by mouth once daily.fluticasone propionate 0.05 mg/actuat metered dose nasal spray (20 sources)CorticosteroidStart: 69-50-2290Rqronuwixmm Propionate 50 mcg/actuation spray,suspension Active INTRANASAL April 18, 2024 12:00am Start: 96-02-9517Xxbgcsvyiqg Propionate 50 MCG/ACT Nasal Suspension Quantity: 16 Refills: 0 Start : 08-Jun-2018 ActiveFluticasone Propionate HFA Activeibuprofen 200 mg oral tablet (18 sources)Nonsteroidal Anti-inflammatory DrugStart: 09-75-8194ylrn 1 tablet by mouth once dailyIbuprofen (Advil) 200 mg Tablet Active 200 MG PO Daily July 29, 2022 1:00amAdvil ActiveAdvil TABS TAKE 2 TABLETSPO QHS Refills: 0 Active Advil TABS TAKE 2 TABLETSPO QHS Refills: 0 DO Activelatanoprost 0.05 mg/ml ophthalmic solution (3 sources)Prostaglandin AnalogStart: 18-19-9873orsk 1 drop(s) into the eye(s) once dailyLatanoprost 0.005 % drops Active 1 DROPS EYE-BOTH Daily January 17, 2024 12:00amMagnesium (13 sources)Start: 70-85-2549wujr 1 tablet by mouth once dailyMagnesium Tablet Active 1 TAB PO Daily July 29, 2022 1:00amStart: 91-87-8647zhkk 1 tablet by mouth once dailyMagnesium Tablet Active 1 TAB PO Daily July 29, 2022 12:00amStart: 68-32-7006ulsj 1 tablet by mouth once dailyMagnesium Active 1 TAB PO Daily July 29, 2022 12:00amMagnesium Activemagnesium gluconate 550 mg oral tablet (9 sources)take 1 tablet by mouth in the morningmagnesium 30 MG tablet Take 30 mg by mouth in the morning and 30 mg before bedtime. Activemeloxicam 15 mg oral tablet (8 sources)Nonsteroidal Anti-inflammatory Drugtake 1 tablet by mouth every twelve hoursMeloxicam 15 MG 1 tablet bid Activemethocarbamol 500 mg oral tablet (8 sources)Muscle RelaxantMethocarbamol 500 MG 1 tablet 2-3 times a day prn ActivemethylPREDNISolone 4 mg oral tablet (7 sources)CorticosteroidStart: 33-60-8650nuhiaeQYRUDTUvjkdb 4 MG as directed Orally for 6 days May, Zgdvvz91 hr metoprolol succinate 25 mg extended release oral tablet (20 sources)beta-Adrenergic BlockerStart: 10-24-2023 End: 13-82-6486xdih 1 tablet by mouth once dailyMetoprolol Succinate 25 mg tablet extended release 24 hr Active 25 MG PO Daily July 0651:21pm take 1 tablet by mouth every twenty-four hours in the morningmetoprolol succinate XL (Toprol-XL) 25 MG 24 hr tablet Take 25 mg by mouth in the morning. Do not crush or chew.. Activemontelukast 10 mg oral tablet (20 sources)Leukotriene Receptor AntagonistStart: 05-21-2024 End: 98-75-2050fwkq 1 tablet by mouth once dailyMontelukast 10 mg tablet Active 0 .ROUTE .COMPLEX November 16, 2024 11:03am TAKE 1 TABLET BY MOUTH EVERY DAY Start: 10-24-2023 End: 23-78-0585trcr 1 tablet by mouth once dailyMontelukast 10 mg tablet Discontinued 10 MG PO Daily October 24, 2023 12:00am May 21, 2024 9:27am FreeTextSi tablet once a day; Note: Source Status: Taking; Provider: Michele Mccabe ( )Multivitamin preparation (1 source)Start: 92-04-4588afsq 1 tablet by mouth once dailyMultivitamin Active 1 TAB PO Daily July 29, 2022 12:00amOmega 3 (9 sources)[place] 3 ActiveOmega 6-Abr-Igp-Fish Oil (Fish Oil) 100-160-1,000 mg capsule (3 sources)Start: 45-38-4399Fcarc 1-Fzd-Are-Fish Oil (Fish Oil) 100-160-1,000 mg capsule Active CAP PO April 18, 2024 12:00amStart: 84-98-6721Jyicb 8-Gak-Kzz-Fish Oil (Fish Oil) 100-160-1,000 mg capsule Active CAP PO April 17, 2024 11:00pmomega-3 acid ethyl esters (long-term) 1000 mg oral capsule (9 sources)take 1 capsule by mouth in the morningomega-3 acid ethyl esters (Lovaza) 1 g capsule Take 1 g by mouth in the morning and 1 g before bedtime. ActiveOmega-3 Fatty Acids (1 source)Start: 72-54-9127wvou 1000 mg by mouth once dailyOmega-3 Fatty Acids Active 1000 MG PO Daily July 29, 2022 12:00amomeprazole 20 mg delayed release oral capsule (20 sources)Proton Pump InhibitorStart: 13-92-5348mhpq 1 capsule by mouth once dailyOmeprazole 20 mg capsule,delayed release(DR/EC) Active 20 MG PO Daily December 05, 2024 11:16amStart: 07-13-2024 End: 04-59-5576lrlz 1 capsule by mouth twice dailyOmeprazole 20 mg capsule,delayed release(DR/EC) Discontinued 20 MG PO Twice daily 180 October 09, 2024 8:28am December 05, 2024 11:16amStart: 02-17-2024 End: 89-55-1766qruk 1 tablet by mouth once dailyOmeprazole 20 mg tablet,delayed release (DR/EC) Discontinued 20 MG PO Daily 60 February 17, 2024 10:13am May 21, 2024 4:27pmStart: 10-24-2023 End: 18-51-9736ujps 2 tablets by mouth once dailyOmeprazole 20 mg tablet,delayed release (DR/EC) Discontinued 40 MG PO Daily 60 December 19, 2023 3:36pm February 17, 2024 10:15amStart: 73-18-8469udyy 1 capsule by mouth before mealtime omeprazole (PriLOSEC) [address] capsule Indications: PND (post-nasal drip) Take 1 capsule (40 mg) bymouth in the morning. Take before meals. Do not crush or chew.. 90 capsule 09/05/2023 ActiveStart: 07-29-2022 End: 85-91-9393dieq 1 tablet by mouth once dailyOmeprazole 20 mg tablet,delayed release (DR/EC) Discontinued 20 MG PO Daily 90 October 17, 2023 10:59am October 24, 2023 2:19pmStart: 07-15-2021 End: 50-19-7478xewp 1 capsule by mouth once dailyomeprazole (PRILOSEC) 20 mg capsule TAKE 1 CAPSULE BY MOUTH EVERY DAY 90 capsule 1 05/07/2022 ActiveStart: 10-21-2017 End: 60-36-9149cnpjynjodx (PRILOSEC) 20 mg capsuleComment on above:TAKE 1 CAPSULE BY MOUTH EVERY DAYpredniSONE 10 mg oral tablet (1 source)Start: 82-23-9426hkfg 4 tablets by mouth once daily, then take 3 tablets by mouth once daily, then take 2 tablets bymouth once daily, then take 1 tablet by mouth once dailyPrednisone 10 mg tablet Active 10 MG PO As Directed December 05, 2024 12:00am 4 daily x 2 days, 3 daily x 2 days, 2 daily x 2 days, 1 daily x 6 daystherapeutic multivitamin-minerals (Theragran-M) tablet (9 sources)take 1 tablet by mouth once dailytherapeutic multivitamin-minerals (Theragran-M) tablet Take 1 tablet by mouth Daily Activetake 1 tablet by mouth in the morningtherapeutic multivitamin-minerals (Theragran-M) tablet Take 1 tablet by mouth in the morning. Activetravoprost (13 sources)Prostaglandin AnalogStart: 12-58-1137bfmq 1 drop(s) into the eye(s) once daily in the eveningTravoprost Active 1 DROPS EYE-BOTH Every evening July 29, 2022 12:00amStart: 02-01-2022 End: 66-49-5689ltujzcfvdx (TRAVATAN Z) 0.004 % ophthalmic drops USE 1 DROP IN BOTH EYES DAILY AT BEDTIME. 15 mL 2 02/01/2022 ActiveStart: 10-01-2019 End: 08-03-0540sglyirdhjt (TRAVATAN Z) 0.004 % ophthalmic drops Use 1 Drop in both eyes daily at bedtime. 3 Bottle3 10/01/2019 06/30/2020 Discontinued Travoprost ActiveComment on above:USE 1 DROP IN BOTH EYES DAILY AT BEDTIME. valACYclovir 1000 mg oral tablet (1 source)Herpesvirus Nucleoside Analog DNA Polymerase Inhibitor, Herpes Simplex Virus Nucleoside Analog DNA Polymerase Inhibitor, Herpes Zoster Virus Nucleoside Analog DNA Polymerase InhibitorStart: 26-86-4209Pmbkpulzeqmg (Valtrex) 1 gram tablet Active 2000 MG PO Twice daily December 05, 2024 12:00am Vitamin B Complex (1 source)Start: 22-07-4586zlaz 1 tablet by mouth once dailyVitamin B Complex Active 1 TAB PO Daily July 29, 2022 12:00amVitamin D3 (9 sources)Vitamin D3 ActiveWomens One Daily (9 sources)Womens One Daily Active Completed/Discontinued Medications MedicationDrug Class(es)DatesSig (Normalized)Sig (Original)alendronic acid 35 mg oral tablet (20 sources)BisphosphonateStart: 08-26-2023 End: 25-27-2027xynb 1 tablet by mouth every weekAlendronate 35 mg tablet Discontinued 35 MG PO every week August 26, 2023 11:00am April 30, 2024 10:25amtake 1 tablet by mouth in the morningalendronate (Fosamax) 70 MG tablet Take 70 mg by mouth every 7 (seven) days Take in the morning with a full glass of water, on an empty stomach, and do not take anything else by mouth or lie down forthe next 30 min. ActiveAlendronate Sodium 70 MG 1 tablet once a week ActiveALPRAZolam 1 mg oral tablet (20 sources)BenzodiazepineStart: 06-21-2023 End: 13-17-4711skmf 1 tablet by mouth three times daily as needed for anxiety Alprazolam 1 mg tablet Discontinued 1 MG PO Three times daily as needed for anxiety 90 October 24, 2023 2:52pm November 24, 2023 8:41amStart: 07-29-2022 End: 46-49-2173svpp 1 tablet by mouth once dailyAlprazolam 1 mg tablet Discontinued 1 MG PO Daily July 29, 2022 1:00am August 19, 2023 2:42pm amLODIPine 5 mg oral tablet (20 sources)Dihydropyridine Calcium Channel BlockerStart: 10-24-2023 End: 11-18-0454jzsm 1 tablet by mouth once dailyAmlodipine 5 mg tablet Discontinued 5 MG PO Daily 90 November 24, 2023 11:29am April 18, 2024 10:07am FreeTextSi tablet once a day; Note: Source Status: Taking; Provider: Michele Mccabe ( )ascorbic acid 60 mg / beta carotene 5000 unt / copper sulfate 40 mg / dl-alpha tocopheryl acetate 30 unt / sodium selenite 0.04 mg / zinc oxide 40 mg oral tablet (3 sources)Vitamin Ctake 1 tablet by mouth once dailyWomens One Daily Oral Tablet Refills: 0 Activeazithromycin 250 mg oral tablet (7 sources)Macrolide AntimicrobialStart: 07-13-2024 End: 31-00-0244Zanwqrezphjv 250 mg tablet Discontinued 0 PO .COMPLEX 6 July 13, 2024 1:00am August 28, 2024 9:29am For 250 mg dose pack: take 500 mg today (day 1), then 250 mg for 4 days (days 2-5) POStart: 77-03-4202Rkiepotipdkn 250 MG as directed Orally 2 tabs po today, then 1 tab daily x 4 more days for 5 Jun, Activebisacodyl 5 mg delayed release oral tablet (4 sources)Stimulant LaxativeStart: 07-29-2022 End: 83-24-0865ezzo 1 tablet by mouth once daily at bedtimeBisacodyl (Dulcolax (Bisacodyl)) 5 mg Tablet,Delayed Release (Dr/Ec) Discontinued 5 MG PO Daily at b edtime July 29, 2022 1:00am October 24, 2023 2:10pmbrimonidine tartrate 2 mg/ml / timolol 5 mg/ml ophthalmic solution (3 sources)alpha-Adrenergic Agonist, beta-Adrenergic BlockerStart: 06-30-2020 Brimonidine-Timolol (COMBIGAN) 0.2-0.5 % Use 1 Drop in both eyes twice daily. 1 Bottle 0 06/30/2020ActiveComment on above:Use 1 Drop in both eyes twice daily. calcium carbonate 1250 mg oral tablet (5 sources)Start: 07-29-2022 End: 35-94-5137zwcj 1 tablet by mouth once dailyCalcium Carbonate 500 mg calcium (1,250 mg) Tablet Discontinued 500 MG PO Daily July 29, 2022 1:00am October 24, 2023 2:10pmOscal 500/200 D-3 Activechondroitin sulfates 200 mg / glucosamine hydrochloride 250 mg oral tablet (5 sources)Start: 07-29-2022 End: 38-41-5981phdu 1 tablet by mouth after mealtimeGlucosamine-Chondroitin (Osteo Bi-Flex) 250-200 mg Tablet Discontinued 1 TAB PO after meals 2022 1:00am October 24, 2023 2:11pmOsteo Bi-Flex One Per Day Active ciprofloxacin 250 mg oral tablet (3 sources)Quinolone AntimicrobialStart: 10-13-2023 End: 13-13-1703ouzj 1 tablet by mouth twice dailyCiprofloxacin Hcl 250 mg tablet Discontinued 250 MG PO Twice daily October 13, 2023 12:00am October 24, 2023 2:10pmcyclobenzaprine hydrochloride 10 mg oral tablet (1 source)Muscle RelaxantStart: 05-03-2019 End: 59-51-4808lfec 1 tablet by mouth every twelve hours as needed cyclobenzaprine (FLEXERIL) 10 mg tablet Take 1 tablet by mouth twice daily as needed for Muscle Spasm. 60 tablet 1 05/03/2019 07/07/2020 DiscontinuedComment on above:Take 1 tablet by mouth twice daily as needed for Muscle Spasm. diclofenac sodium 0.01 mg/mg topical gel (9 sources)Nonsteroidal Anti-inflammatory DrugStart: 65-58-7502tides 2 g topically four times dailydiclofenac sodium (VOLTAREN) 1 % topical gel Apply 2 g to affected area four times daily. 1 Tube ActiveStart: 07-14-2017 Diclofenac Sodium 1 % GEL Quantity: 100 Refills: 0 Start : 14-Jul-2017 Active Comment on above:Apply 2 g to affected area four times daily.diphenhydrAMINE hydrochloride 25 mg oral tablet (5 sources)Histamine-1 Receptor Antagonisttake 1 tablet by mouth at bedtime Benadryl 25 MG TABS TAKE 1 TABLET AT BEDTIME. Refills: 0 Activepreservative-free dorzolamide 20 mg/ml / timolol 5 mg/ml ophthalmic solution (1 source)Carbonic Anhydrase Inhibitor, beta-Adrenergic BlockerStart: 10-20-2020 take 1 drop(s) into the eye(s) twice dailyCOSOPT, PF, 2-0.5 % Use 1 Drop in both eyes twice daily. 60 Each 3 10/20/2020 ActiveComment on above:Use 1 Drop in both eyes twice daily.famotidine 20 mg oral tablet (11 sources)Histamine-2 Receptor AntagonistStart: 09-05-2023 End: 79-77-2063exhs 1 tablet by mouth once dailyFamotidine 20 mg tablet Discontinued 20 MG PO Daily October 24, 2023 12:00am July 13, 2024 12:02pm fexofenadine hydrochloride 180 mg oral tablet (13 sources)Histamine-1 Receptor AntagonistStart: 07-29-2022 End: 07-75-9207ahtq 1 tablet by mouth once dailyFexofenadine 180 mg Tablet Discontinued 180 MG PO Daily July 29, 2022 1:00am October 24, 2023 2:11pm Giovanna Activegabapentin 300 mg oral capsule (4 sources)Anti-epileptic AgentStart: 08-28-2024 End: 73-07-3569Jyolmstmsp 300 mg capsule Discontinued 100 MG PO Three times daily August 28, 2024 1:00am December 05, 2024 11:15amStart: 01-21-2020 End: 79-17-3254kjct 1 capsule by mouth once daily at bedtimegabapentin (NEURONTIN) 100 mg capsule Take 1 capsule by mouth daily at bedtime for 30 days. 30 capsule 3 01/21/2020 07/07/2020 DiscontinuedComment on above:Take 1 capsule by mouth daily at bedtime for 30 days.ibuprofen/diphenhydramine cit (ADVIL PM ORAL) (4 sources)ibuprofen/diphenhydramine cit (ADVIL PM ORAL) Take by mouth. 0 Active Comment on above:Take by mouth.linaclotide 0.072 mg oral capsule (9 sources)Guanylate Cyclase-C AgonistStart: 32-59-3097ezak 1 capsule by mouth once dailyLinzess 72 MCG Oral Capsule TAKE 1 CAPSULE Daily Quantity: 90 Refills: 1 Krzysztof Larkin MD Start : 10-Nov-2018 ActiveStart: 94-98-2199iijirbczpzn (LINZESS) 290 mcg cap Take 1 capsule by mouth as needed. 0 03/28/2017 Active Comment on above:Take 1 capsule by mouth as needed.lubiprostone 0.008 mg oral capsule (2 sources)Chloride Channel ActivatorStart: 63-82-3172vzog 1 capsule by mouth twice dailyAmitiza 8 MCG Oral Capsule TAKE 1 CAPSULE BY MOUTH TWICE A DAY Quantity: 180 Refills: 1 Krzysztof Larkin MD Start : 30-Apr-2020 ActiveMagnesium Oxide (5 sources)Magnesium CAPS Refills: 0 ActiveMagnesium CAPS Refills: 0 DO Active melatonin 10 mg oral tablet (7 sources)Start: 57-09-8082oxte 1 tablet by mouth every twenty-four hours as neededmelatonin 10 mg tab Take 1 tablet by mouth at bedtime as needed. 90 tablet 3 07/09/2020 ActiveStart: 03-28-2017 End: 01-51-3351symm 1 capsule by mouth once dailymelatonin 10 mg cap Take 1 capsule by mouth once daily. 0 03/28/2017 06/19/2020 DiscontinuedComment on above:Take 1 tablet by mouth at bedtime as needed.Take 1 capsule by mouth once daily.Multivitamin Tablet (3 sources)Start: 07-29-2022 End: 17-52-7189wfwk 1 tablet by mouth once dailyMultivitamin Tablet Discontinued 1 TAB PO Daily July 29, 2022 1:00am December 05, 2024 11:15amStart: 06-41-8255cbca 1 tablet by mouth once dailyMultivitamin Tablet Active 1 TAB PO Daily July 29, 2022 1:00amStart: 06-13-5234mztf 1 tablet by mouth once dailyMultivitamin Tablet Active 1 TAB PO Daily July 29, 2022 12:00amMV with Ejf-Xonyjeuq-Mzrmbl (CENTRUM SILVER) 0.4-300-250 mg-mcg-mcg tab (1 source)Start: 95-66-4728qlgh 1 tablet by mouth once dailyMV with Nzg-Ctbbmcnc-Omcmxr (CENTRUM SILVER) 0.4-300-250 mg-mcg-mcg tab Take 1 tablet by mouth oncedaily. 30 tablet 3 07/07/2020 ActiveComment on above:Take 1 tablet by mouth once daily.nortriptyline 10 mg oral capsule (1 source)Tricyclic AntidepressantStart: 01-29-2020 End: 32-38-8863jmpn 1 capsule by mouth once daily at bedtimenortriptyline (PAMELOR) 10 mg capsule Take 1 capsule by mouth daily at bedtime. 30 capsule 5 01/29/2020 05/16/2020 DiscontinuedComment on above:Take 1 capsule by mouth daily at bedtime.[place]-3 Fatty Acids Capsule (3 sources)Start: 07-29-2022 End: 50-85-5409uhas 1 capsule by mouth once dailyOmega-3 Fatty Acids Capsule Discontinued 1000 MG PO Daily July 29, 2022 1:00am October 24, 2023 2:12pm Start: 07-29-2022 End: 38-31-4817slfc 1 capsule by mouth once dailyOmega-3 Fatty Acids Capsule Discontinued 1000 MG PO Daily July 29, 2022 12:00am October 24, 2023 1:12pm Omeprazole 20 mg capsule,delayed release(DR/EC) (3 sources)Start: 05-21-2024 End: 38-55-3618mzsu 1 capsule by mouth once dailyOmeprazole 20 mg capsule,delayed release(DR/EC) Discontinued 0 .ROUTE .COMPLEX May 21, 2024 4:27pm July 13, 2024 12:36pm TAKE 1 CAPSULE BY MOUTH EVERY DAYStart: 05-21-2024 End: 56-23-7225qbtb 1 capsule by mouth once dailyOmeprazole 20 mg capsule,delayed release(DR/EC) Discontinued 0 .ROUTE .COMPLEX May 21, 2024 3:27pm July 13, 2024 11:36am TAKE 1 CAPSULE BY MOUTH EVERY DAY Travoprost 0.004 % Drops (3 sources)Start: 07-29-2022 End: 26-67-0642lmps 1 drop(s) into the eye(s) once daily in the evening Travoprost 0.004 % Drops Discontinued 1 DROPS EYE-BOTH Every evening July 29, 2022 1:00am July 13, 2024 12:02pmStart: 07-29-2022 End: 12-68-7372juii 1 drop(s) into the eye(s) once daily in the evening Travoprost 0.004 % Drops Discontinued 1 DROPS EYE-BOTH Every evening July 29, 2022 12:00am July 13, 2024 11:02amtriamcinolone acetonide 40 mg/ml injectable suspension (8 sources)CorticosteroidStart: 43-96-5060Hemhwrl-40 May, 40 mg ubidecarenone 100 mg oral capsule (7 sources)Start: 07-29-2022 End: 99-21-3678Serfojnl Q10 (Co Q-10) 100 mg Capsule Discontinued 100 MG PO Daily July 29, 2022 1:00am October 24, 2023 2:10pmStart: 45-97-2439uaja 1 capsule by mouth once dailycoenzyme Q10 (CO Q-10) 100 mg cap capsule Take 1 capsule by mouth once daily. 0 07/07/2020 ActiveComment on above:Take 1 capsule by mouth once daily.Vitamin B Complex Tablet (3 sources)Start: 07-29-2022 End: 46-71-2948lcww 1 tablet by mouth once dailyVitamin B Complex Tablet Discontinued 1 TAB PO Daily July 29, 2022 1:00am October 24, 2023 2:12pm Start: 07-29-2022 End: 97-07-5892xhdk 1 tablet by mouth once dailyVitamin B Complex Tablet Discontinued 1 TAB PO Daily July 29, 2022 12:00am October 24, 2023 1:12pm Womens One Daily Oral Tablet (1 source)take 1 tablet by mouth once dailyWomens One Daily Oral Tablet Refills: 0 DO ActiveWomens One Daily Oral Tablet (1 source)take 1 tablet by mouth once dailyWomens One Daily Oral Tablet Refills: 0 Active Problems Active Problems Problem ClassificationProblemDateDocumented DateEpisodic/ChronicAnxiety disorders (14 sources)Anxiety; Translations: [Anxiety disorder, unspecified]Onset: 376517-96-3641LqvuuybJdpjewl on above:Problem List clean-up per request of Phys. EHR CmteAsthma (3 sources)Asthma; Translations: [Unspecified asthma, uncomplicated]10-25-2023 ChronicCardiac dysrhythmias (13 sources)Supraventricular tachycardia; Translations: [Supraventricular tachycardia]Onset: 91-35-1055UuybqrsXgzltkq dysrhythmias (7 sources)Palpitations; Translations: [PALPITATIONS]Onset: 70-38-2971Xqimtztg Deficiency and other anemia (3 sources)Iron deficiency anemia; Translations: [Iron deficiency anemia, unspecified]63-77-1484IrsrmhxjZhsyezuwfh and other anemia (2 sources)Iron deficiency anemia, unspecified; Translations: [Iron deficiency anemia, unspecified]00-68-6180DfnrtvxaNshdvbfifjwqtu and diverticulitis (10 sources)Diverticular disease of colon; Translations: [Diverticulosis of intestine, part unspecified, without perforation or abscess without bleeding] ChronicEsophageal disorders (20 sources)Gastroesophageal reflux disease; Translations: [Esophageal reflux] Onset: 434711-18-2191SfrghlqYlibqsf on above:Problem List clean-up per request of Phys. EHR CmteEssential hypertension (14 sources)Benign essential hypertension; Translations: [Essential (primary) hypertension]Onset: 499199-22-0820FsfiztpRdywjbkchvjpm symptoms and ill- defined conditions (3 sources)Dysuria; Translations: [Dysuria]97-58-8425PepzfvsjOcfofcvh (13 sources)Raised intraocular pressure; Translations: [Ocular hypertension, unspecified eye]Onset: 869373-17-5772CmlttzuTzbaezrr; including migraine (1 source)Chronic mixed headache syndrome; Translations: [Other headache syndrome]76-36-3947RsiixhqaJiiqjwgclew (1 source)Unspecified hemorrhoidsEpisodicNoninfectious gastroenteritis (5 sources)Lymphocytic-plasmacytic colitis; Translations: [Other and unspecified noninfectious gastroenteritisand colitis]EpisodicNonspecific chest pain (1 source)Other chest pain; Translations: [OTHER CHEST PAIN]Onset: 08-07-2022 EpisodicOther and unspecified benign neoplasm (9 sources)History of polyp of colon; Translations: [Personal history of colonic polyps]EpisodicOther bone disease and musculoskeletal deformities (1 source)Other specified disorders of bone density and structure, unspecified site; Translations: [Other specified disorders of bone density and structure, unspecified site]Onset: 73-74-2589YwhhdhnfZolfz connective tissue disease (3 sources)Pain in limb; Translations: [Pain in unspecified limb]07-13-2024 EpisodicOther connective tissue disease (3 sources)Muscle pain; Translations: [Myalgia, unspecified site]07-13-2024 EpisodicOther connective tissue disease (2 sources)Myalgia, unspecified site; Translations: [Myalgia and myositis, unspecified]18-56-1378QvrylwmkGnnjk connective tissue disease (4 sources)Pain in unspecified limb; Translations: [Pain in limb]07-13-2024 EpisodicOther disorders of stomach and duodenum (5 sources)Indigestion; Translations: [Dyspepsia and other specified disorders of function of stomach]EpisodicOther gastrointestinal disorders (5 sources)Irritable bowel syndrome; Translations: [Irritable bowel syndrome] ChronicOther gastrointestinal disorders (5 sources)Celiac disease; Translations: [Celiac disease]ChronicOther gastrointestinal disorders (4 sources)Irritable bowel syndrome characterized by constipation; Translations: [Irritable bowel syndrome]ChronicOther gastrointestinal disorders (1 source)Chronic idiopathic constipation; Translations: [Constipation, unspecified]ChronicOther gastrointestinal disorders (5 sources)Chronic constipation; Translations: [Constipation, unspecified] EpisodicOther gastrointestinal disorders (5 sources)Abdominal bloating; Translations: [Flatulence, eructation, and gas pain]EpisodicOther gastrointestinal disorders (1 source)Chronic idiopathic constipation; Translations: [Chronic idiopathic constipation]EpisodicOther gastrointestinal disorders (1 source)Constipation, unspecifiedEpisodicOther hereditary and degenerative nervous system conditions (2 sources)Impaired cognition; Translations: [Mild cognitive impairment, so stated]09-56-0968NkzqysoNmluh hereditary and degenerative nervous system conditions (2 sources)Mild cognitive disorder ; Translations: [Mild cognitive impairment, so stated]70-95-6135KjoraqbVetzu nervous system disorders (1 source)Other chronic pain; Translations: [OTHER CHRONIC PAIN]Onset: 91-15-1111WvuubncAtvxm nervous system disorders (1 source)Other specified mononeuropathies; Translations: [OTHER SPECIFIED MONONEUROPATHIES]Onset: 55-52-0119XbcfnrmZgdkq nervous system disorders (2 sources)Impaired tvskkfnux64-41-6782VarovfpcVlnkk non-traumatic joint disorders (4 sources)Pain in left hip; Translations: [PAIN IN LEFT HIP]Onset: 10-21-2022 EpisodicOther nutritional; endocrine; and metabolic disorders (3 sources)Abnormal weight gain; Translations: [Abnormal weight gain]01-17-2024 EpisodicOther screening for suspected conditions (not mental disorders or infectious disease) (20 sources)Patient encounter status; Translations: [Encounter for screening mammogram for malignant neoplasm of breast]Onset: 09-12-3483QvbqybijLwfedxs on above:Problem List clean-up per request of Phys. EHR CmteOther skin disorders (1 source)Localized swelling, mass and lump, neckEpisodicOther skin disorders (3 sources)Loss of hair; Translations: [Nonscarring hair loss, unspecified] 71-86-0200ByuwofefJjkom upper respiratory disease (12 sources)Allergic rhinitis; Translations: [Allergic rhinitis, unspecified] Onset: 625582-75-5851PhgnxexVwjnt upper respiratory disease (1 source)Allergic rhinitis, unspecifiedChronicOther upper respiratory infections (20 sources)Chronic bilateral maxillary sinusitis; Translations: [Chronic maxillary sinusitis]Onset: 62-66-6002CswxxvqNazerclq codes; unclassified (1 source)Asymptomatic menopausal state; Translations: [Asymptomatic menopausal state]Onset: 09-08-5597RjlcawxyOgowxndg codes; unclassified (3 sources)Memory impairment; Translations: [Other amnesia]64-55-4781Lqjunfso Residual codes; unclassified (2 sources)Other amnesia; Translations: [Memory loss]64-87-2994VielzobzWwikyxxy codes; unclassified (2 sources)FH: Alzheimer's disease; Translations: [Family history of epilepsy and other diseases of the nervous system]54-96-3706NkrvectbJrmxflwln and history of mental health and substance abuse codes (1 source)Personal history of nicotine dependence; Translations: [Personal history of nicotine dependence]Onset: 50-75-1924WadyhpcqGglmujfseiw; intervertebral disc disorders; other back problems (20 sources)Lumbosacral spondylosis without myelopathy; Translations: [Spondylosis without myelopathy or radiculopathy, lumbosacral region]Onset: 212414-78-9304UreeyvyNgawqydvl-uhphnfw disorders (20 sources)Tobacco dependence syndrome; Translations: [Nicotine dependence, unspecified, uncomplicated]Onset: 09-17-2011 Resolved: 688855-80-5760IqrjuzvGvncyca disorders (13 sources)Multinodular goiter; Translations: [Nontoxic multinodular goiter] Onset: 034565-12-0146MffxmhbWrvljnanhmpl (4 sources)Elevated blood pressure; Translations: [Elevated BP]Onset: 08-02-2011 25-03-9231Ssijfjhbcugv (1 source)Encounter for screening for malignant neoplasm of colon; Translations: [Encounter for screening formalignant neoplasm of colon]Onset: 07-29-2022 Unclassified (1 source)LOW BACK PAIN, UNSPECIFIED; Translations: [LOW BACK PAIN, UNSPECIFIED] Onset: 02-76-1906Pdpuwavyejsy (1 source)CONTACT W/AND (SUSP) EXPOS COVID-19; Translations: [CONTACT W/AND (SUSP) EXPOS COVID-19]Onset: 14-20-2831Cjmadiutjzcf (1 source)Gynecologic ExamOnset: 07-25-2024 Past or Other Problems Problem ClassificationProblemDateDocumented DateEpisodic/ChronicImmunizations and screening for infectious disease (1 source)Encounter for screening for human papillomavirus (HPV); Translations: [ENC SCREENING HUMAN PAPILLOMAVIRUS]Onset: 25-55-5860CgsugmdxHmtsdkoxdr disorders (20 sources)Atrophic vaginitis; Translations: [Postmenopausal atrophic vaginitis]Onset: 01-12-2023 Resolved: 613023-36-7981BxncjuuDugcbwygfs disorders (13 sources)Postmenopausal state; Translations: [Hormone replacement therapy] Onset: 534528-52-6691ZmtmpshvTshkg aftercare (4 sources)Other [place] [facility] (current[facility] drug therapy; Translations: [OTH LONGTERM CURRENT DRUG THERAPY]Onset: 39-01-1941KcjrmndrKpmwq and unspecified benign neoplasm (13 sources)Polyp of colon; Translations: [Polyp of colon]Onset: 03-04-2009 10-05-6692JedmspemPzxnl bone disease and musculoskeletal deformities (1 source)Other specified disorders of bone density and structure, right thigh; Translations: [OTH D/O BONE DEN STRUCT RT THIGH]Onset: 35-83-6556JbwgktxwUgcae gastrointestinal disorders (20 sources)Constipation; Translations: [Constipation, unspecified]Onset: 121609-62-5181IyyboqwdBofbr gastrointestinal disorders (1 source)Irritable bowel syndrome with constipation; Translations: [Irritable bowel syndrome with constipation]Other lower respiratory disease (9 sources)Chronic cough; Translations: [Chronic cough]Onset: 07-01-2023 13-32-1402HwvcvxihBeken non-traumatic joint disorders (4 sources)Bilateral wrist pain; Translations: [Pain in right wrist]Onset: 042878-42-8999OapnkjohBtwuz skin disorders (9 sources)Mass of neck; Translations: [Localized swelling, mass and lump, neck] Onset: 460789-42-6852WqoxnxwhLdzbu upper respiratory infections (15 sources)Postnasal drip; Translations: [Acute maxillary sinusitis]Onset: 35-00-0285ImvxvvoxSstcrzlu codes; unclassified (13 sources)Family history of diabetes mellitus; Translations: [Family history of diabetes mellitus]Onset: 01-12-2023 Resolved: 221430-39-3095YqtrjtviLqbivqdx codes; unclassified (13 sources)FH: premature coronary heart disease; Translations: [Family history of ischemic heart disease and other diseases of the circulatory system]Onset: 09-17-2011 Resolved: 322486-81-2634WvyafjpwVwtzzxqk codes; unclassified (13 sources)Family history of cancer of colon; Translations: [Family history of malignant neoplasm of digestiveorgans]Onset: 03-28-2017 Resolved: 399855-36-1698IkbegowfSkctngre codes; unclassified (1 source)Family history of malignant neoplasm of other organs or systems; Translations: [FAM HX MALIG NEOPLASM OTH ORGN/SYS]Onset: 14-12-9046Kcfxmgwf Residual codes; unclassified (1 source)Family history of malignant neoplasm of trachea, bronchus and lung; Translations: [FAM HX MALIG NEOPLSM TRACH BRON LNG]Onset: 57-31-4356Glyuxsps Residual codes; unclassified (1 source)Family history of malignant neoplasm of digestive organs; Translations: [FAM HX MALIG NEOPLASM DIGESTIV ORGN]Onset: 40-09-5375Oqorkvdv Spondylosis; intervertebral disc disorders; other back problems (20 sources)Dorsalgia, unspecified; Translations: [Spinal stenosis]Onset: 813143-93-6344EjfrnvyuVfopwrk (13 sources)Syncope; Translations: [Syncope and collapse]Onset: 09-17-2011 Resolved: 944348-32-5218PgzjqsafUpvujzfonctc (1 source)Chronic cough R05.3NEGATED: Highlighted row has not occurred!Residual codes; unclassified (6 sources)DiseaseEpisodic Results Test NameValueInterpretationReference IbwmwYpkframc89cm 23-50-907059Tg. Chacko reviewed patient's loop data from the past few days (since her apt on 05/07/2025) and he said it showed nothing. Patient made aware. Advised her to make us aware of any further issues.NormalUnMercy Health [facility] Office Visiton 44-41-6676Immfyx-up [id number] Marly Jaffe 1955 F Date Provider Department Center 05/07/2025 241-[facility]QUIS HAN [facility] Family History Problem Relation Age of Onset Stroke Mother Hypertension Mother Cancer Mother Stroke Father Other Father Cancer Sister Family Status - Relation Status Age at Mother Father Sister Brother Alive Level of Service:25582 CO OFFICE/OUTPATIENT ESTABLISHED LOW MDM 20 MIN Reason for Visit and Comments: Hypertension [606736] SVT [Other] - Every morning causes her to jump out of bed Follow-up [477801] - Patient is here today for a follow up appointment. Patient states she had a rough morning patient states she has issues in the morning with her heart racing/palpitations SOB/HARDEN. Patient denies chest pain. Patient states when she takes a nerve pill everything calms down. Patient will be having a cataract removed in June and would like to know what cardiac medication she can stop. Palpitations [] - Palpitations/racing heart very intense Shortness of Breath [] - SOB/HARDEN first thing in the am with heart poundingNormalUniversTogus VA Medical CenterOrders Onlyon 05-96-9499Xanjsj [id number] Marly Jaffe S 1955 F Date Provider Department Center 03/29/2025 [facility] Family History Problem Relation Age of Onset Stroke Mother Hypertension Mother Cancer Mother Stroke Father Other Father Cancer Sister Family Status - Relation Status Age at Mother Father Sister Brother AliveNoSouthview Medical CenterOrders Onlyon 03-02-2025 Orders [id number] Marly Jaffe S 1955 F Date Provider Department Center 03/02/2025 241[facility] Family History Problem Relation Age of Onset Stroke Mother Hypertension Mother Cancer Mother Stroke Father Other Father Cancer Sister Family Status - Relation Status Age at Mother Father Sister Brother AliveCleveland ClinicOrders Onlyon 01-30-2025 Orders [id number] Marly Jaffe S 1955 F Date Provider Department Center 01/30/2025 [facility] Family History Problem Relation Age of Onset Stroke Mother Hypertension Mother Cancer Mother Stroke Father Other Father Cancer Sister Family Status - Relation Status Age at Mother Father Sister Brother AliveCleveland ClinicOffice Visiton 11-15-2024 Follow-up [id number] Marly Jaffe S 1955 F Date Provider Department Center 11/15/2024 Sean-KAYY VASQUEZ CARD [facility] Family History Problem Relation Age of Onset Stroke Mother Hypertension Mother Cancer Mother Stroke Father Other Father Cancer Sister Family Status - Relation Status Age at Mother Father Sister Brother Alive Level of Service:23369 CO OFFICE/OUTPATIENT ESTABLISHED LOW MDM 20 MIN Reason for Visit and Comments: SVT [Other]NormalUnMercy Health Willard HospitalALL THYROID STIM HORMONEon 56-50-6216AUU Qn1.526 m[IU]/LNOMS HealthcareCLINISYNCNOMS HealthcareLaboratory - Chemistry and Chemistry - challengeon 08-73-9276Izazhfszx (Vitamin B12) [Mass/Vol]607 pg/vB652-1012MliszxbduCorey HospitalComment on above: Performed at: CB - [facility] [address] [id number] Director: Stephen Deng PhD, Phone: [phone] Qn1.526 m[IU]/L0.358-3.740 [facility] HospitalBasophils Auto (Bld) [#/Vol]on 07-16-2024 Basophils (Bld) [#/Vol]Automated basophil count0.0-0.1FLakeHealth TriPoint Medical CenterBasophils/100 WBC Auto (Bld)on 01-10-8256Nxuzpnjgu/100 WBC (Bld)Automated basophil %0.2-2.0Core[facility] HospitalEosinophils/100 WBC Auto (Bld)on 07-22-7463Tcysgcfwkxo/100 WBC (Bld)Automated eosinophil %0.9-7.0 [facility] HospitalErythrocyte distribution width Auto (RBC) [Ratio]on 20-08-4216Ixrpqeywycj distribution width (RBC) [Ratio]Erythrocyte distribution width [Ratio] by Automated count11.0-15.0Core[facility] HospitalEstimated glomerular filtration rate (GFR) non- Americanon 90-75-2184QSQ/1.73 sq M.predicted among non-blacks MDRD (S/P/Bld) [Vol rate/Area]Estimated glomerular filtration rate (GFR) non- AmericanLow>=60 mL/min/1.73m 2FLakeHealth TriPoint Medical CenterHematocrit Auto (Bld) [Volume fraction]on 58-92-3195Ddoenavtgd (Bld) [Volume fraction]Hematocrit [Volume Fraction] of Blood by Automated count36.0-48.0[facility] Hemoglobin [Mass/volume] in Bloodon 39-27-2940Ooibpfmkpj (Bld) [Mass/Vol] Hemoglobin [Mass/volume] in Blood12.0-16.0[facility] - Chemistry and Chemistry - challengeon 86-77-3561Yyzrxwk [Mass/Vol] 8.9 mg/dL8.5-10.1FLakeHealth TriPoint Medical CenterChloride [Moles/Vol]105 mmol/L 98-107Corey HospitalCO2 [Moles/Vol]30.7 mmol/L21.0-32.0 [facility] HospitalCreatinine [Mass/Vol]1.02 mg/dL0.55-1.02 [facility] HospitalFerritin [Mass/Vol]47.0 ng/mL8.0-252.0Corey HospitalGFR/1.73 sq M.predicted MDRD (S/P/Bld) [Vol rate/Area] mL/min/{1.73_m2}>=60 mL/min/1.73m 2FLakeHealth TriPoint Medical CenterGlucose [Mass/Vol]57 mg/mSNav59-008HiwbnrepoCorey HospitalMagnesium [Mass/Vol] 2.1 mg/dL1.8-2.4FLakeHealth TriPoint Medical CenterPotassium [Moles/Vol]4.3 mmol/L 3.5-5.1FWayne HealthCare Main Campusodium [Moles/Vol]144 mmol/F788-129 [facility] HospitalUrea nitrogen [Mass/Vol]27.0 mg/dLHigh7.0-18.0 [facility]y HospitalUrea nitrogen/Creatinine [Mass ratio]26.5 mg/mg [facility] HospitalLaboratory - Hematology and Cell countson 68-60-5421NZK (Bld) [Velocity]14 mm/h<=30[facility] Immature granulocytes/100 WBC (Bld)0.1 %0.0-0.5FLakeHealth TriPoint Medical Center Leukocytes [#/volume] corrected for nucleated erythrocytes in Blood by Automated counon 40-69-2256LPT corrected for nucl RBC Auto (Bld) [#/Vol]Leukocytes [#/volume] corrected for nucleated erythrocytes in Blood by Automated coun 4.0-11.0[facility] HospitalLymphocytes Auto (Bld) [#/Vol]on 21-98-8766Dzldoptrunm (Bld) [#/Vol]Lymphocytes [#/volume] in Blood by Automated countHigh1.2-3.8Corey HospitalLymphocytes/100 WBC Auto (Bld) on 47-67-4567Rvkcrbvuftf/100 WBC (Bld)Lymphocytes/100 leukocytes in Blood by Automated count20.5-60.0[facility] Auto (RBC) [Entitic mass]on 35-16-9383DMC (RBC) [Entitic mass]MCH [Entitic mass] by Automated count 26.7-34.0Corey HospitalMCHC Auto (RBC) [Mass/Vol]on 24-07-6764RDKK (RBC) [Mass/Vol]MCHC [Mass/volume] by Automated count29.9-35.2 [facility] HospitalMCV Auto (RBC) [Entitic vol]on 40-93-2477QCN (RBC) [Entitic vol]MCV [Entitic volume] by Automated count81.0-99.0Corey HospitalMonocytes Auto (Bld) [#/Vol]on 54-78-0738Ujkttlqjs (Bld) [#/Vol]Automated blood monocyte count0.3-0.8[facility] Monocytes/100 WBC Auto (Bld)on 72-36-0464Ohjvztzuk/100 WBC (Bld)Automated monocyte %1.7-12.0[facility] HospitalNeutrophils Auto (Bld) [#/Vol]on 88-49-2034Cvpjlbcpofs (Bld) [#/Vol]Neutrophils [#/volume] in Blood by Automated count1.4-6.5FLakeHealth TriPoint Medical CenterNeutrophils/100 WBC Auto (Bld)on 24-82-9534Ynxskttjjja/100 WBC (Bld)Automated neutrophil %43.0-75.0 [facility] HospitalNo Panel Informationon 91-14-4184Acqldbs C- Reactive Protein0.97 mg/L0.00-3.00Corey HospitalComment on above:Relative Risk for Future Cardiovascular Event Low <1.00 Average 1.00 - 3.00 High >3.00Performed at: [facility] [id number] Director: Stephen Deng PhD,Phone: [phone] # (Auto)0.1 10 3/uL0.0-0.7FLakeHealth TriPoint Medical CenterImmature Granulocyte # (Auto)0.01 10 3/uL0.00-0.03Corey HospitalPlatelet mean volume Auto (Bld) [Entitic vol]on 27-60-2792Whgeqxqr mean volume (Bld) [Entitic vol] Platelet mean volume [Entitic volume] in Blood by Automated count9.5-13.5 [facility] HospitalPlatelets Auto (Bld) [#/Vol]on 07-16-2024 Platelets (Bld) [#/Vol]Platelets [#/volume] in Blood by Automated tfyop776-177 [facility] HospitalRBC Auto (Bld) [#/Vol]on 75-79-3352BZF (Bld) [#/Vol]Erythrocytes [#/volume] in Blood by Automated count4.20-5.40[facility] Hospitalerum or plasma anion gap determinationon 02-40-0475Nsgyg gap [Moles/Vol]Serum or plasma anion gap determinationCorey HospitalOffice Visiton 38-16-0661Yverfn-up [id number] Marly Jaffe 1955 F Date Provider Department Center 06/12/2024 MARQUIS FRIEDMAN CARD [facility] Family History Problem Relation Age of Onset Stroke Mother Hypertension Mother Cancer Mother Stroke Father Other Father Family Status - Relation Status Age at Mother Father Level of Service:50811 CO OFFICE/OUTPATIENT ESTABLISHED LOW [facility]DM [facility]CT [facility] W/O CONTRASTon 08-19-2023 Exam Date/Time: 08/18/2023 16:42 EST Reason for [...] Ehsan Gordillo MD Transcribed by: CHRISTIAN Technologist: VICadiology, Radiologist, - 08/19/2023 Exam Date/Time: 08/18/2023 16:42 EST Reason for [...] Gordillo MD Transcribed by: CHRISTIAN Technologist: MARTELL MARRUFO HealthcareCT MAXILLOFACIAL W/O CONTRASTOrdered By: Radiologist Radiology on 41-90-9694UPQG [employer] Work Phone: ct Maxillofacial w/o Contraston [id number] Maxillofacial w/o ContrastExam Date/Time: 08/18/2023 16:42 EST Reason for Exam: [...] Ehsan Gordillo MD Transcribed by: CHRISTIAN Technologist: DollyUnc Hospitals Hillsborough Campusrakesh [facility] Midtown CampusCT MAXILLOFACIAL W/O CONTRASTon 11-55-9840Jevjylgtc Study observation (narrative) NOMS HealthcareConsent for Treatmenton 94-72-9590Xtqlfnp for Treatment [id number]#1.00TIFSelect Medical Cleveland Clinic Rehabilitation Hospital, Edwin ShawPhysician Orderon 74-21-3911Dmtxlhyrn Order [id number]#1.00TIFSelect Medical Cleveland Clinic Rehabilitation Hospital, Edwin ShawCT LUNG CANCER SCREENINGon 08-13-3401EP LUNG CANCER SCREENINGEXAMINATION: CT LUNG CANCER SCREENING HISTORY: Tobacco dependence [...] at this time. Electronically authenticated by: ÁNGEL ANTHONY Date: 2022-08-04 14:41[facility] HospitalXR RIBS BIL_PA CH 4V OR GRon 90-00-7330FS RIBS BIL_PA CH 4V OR GREXAMINATION: XR RIBS BIL_PA CH 4V OR GR [...] fracture or lesion. Electronically authenticated by: ÁNGEL ANTHONY Date: 2022-08-04 14:45[facility] HospitalXR TSPINE MIN 4 VIEWSon 04-36-7035SW TSPINE MIN 4 VIEWS EXAMINATION: XR TSPINE [...] Minimal degenerative changes. Electronically authenticated by: ÁNGEL AHUJASAVANNAHRAKESH Date: 2022-08-04 14:42[facility] 07-29-2022 Specimen: [id number] Received: 07/29/22 Status: HUY Jackie Num: [id number] Spec Type: Surgical Subm Dr: Enrrique Brantley MD Tissues: A Colon Biopsy (POLYP SIGMOID) Procedures: HE/2, Gross/Micro L4 Age/ Patient Sex Location Account Attending Physician Marly Jaffe 67/F [id number] Enrrique Brantley MD SPEC NUM: [id number] RECD: 07/29/22 STATUS: HUY EDENSaud NUM: [id number] SALOMON: 07/29/[address]: Enrrique Brantley MD ENTERED: 07/29/[address] [facility] [address]: SPEC TYPE: Surgical DEPT: S ORDERED: [...] support the above pathologic diagnosis. CPT Codes 37016 Specimen: [id number] Received: 07/29/22 Status: HUY Jackie Num: [id number] Spec Type: Surgical Subm Dr: Enrrique Brantley MD Tissues: A Colon Biopsy (POLYP SIGMOID) Procedures: HE/2, Gross/Micro L4 Patient: Marly Jaffe [id number] (Continued) Signed (signature on file) Benjamin Wolf MD 07/30/[address] [place], [place] [address]ECHOCARDIO M/2D COMPLETEon 47-20-1395WFEJQIATOE M/2D COMPLETEPatient: MARLY JAFFE Exam Date: 07/13/2022 : 1955 Gender:F Ordering : MARQUIS ElvaTeddy HAN Admission #: [id number] Family : Order #: [id number] CLICK HERE TO VIEW EXAM ECHOCARDIOGRAM REPORT [...] by: Bharath Mak M.D. on 07/15/2022 at 10:33[facility] MAMM SCREEN 3D LAWRENCE CADon 86-54-5679TP MAMM SCREEN 3D LAWRENCE CADPatient: MARLY JAFFETeddy Exam Date: 06/23/2022 : 1955 Gender:F Ordering : DR MERCY MORGAN . Admission #: [id number] Family : Order #: [id number] CLICK HERE TO VIEW EXAM RADIOLOGY REPORT [...] colon cancer at age 51. LOCATION: [facility] BREAST COMPOSITION: Scattered areas fibroglandular density. [...] LUMP SHOULD BE BIOPSIED. Dictated by: Ángel Anthony M.D. on 06/23/2022 at 14:15 Approved by: Ángel Anthony M.D. on 06/23/2022 at 14:39Corey HospitalOG PANEL 2: 30 to 65on 06-23-2022..[facility] Comment on above:Performed By: #### [id number] #### [facility] [address] [place] [address] Dr. Jeramy DumontAge Gdln ACOG TestingCommentHighland District HospitalComment on above:Result Comment: <21 or >65 or no age providedPerformed By: #### [id number] #### [facility] [address] [place] [address] Dr. Jeramy DumontDIAGNOSIS:CommentWilson Street Hospital on above: Result Comment: NEGATIVE FOR INTRAEPITHELIAL LESION OR MALIGNANCY. REACTIVE CELLULAR CHANGES AND/OR REPAIR ARE PRESENT.Performed By: #### [id number] #### [facility] [address] [place] [address] Dr. Deshpande ChangElectronically signed by:[facility] Comment on above:Result Comment: Christina Aguilar MD, PathologistPerformed By: #### [id number] #### [facility] [address] [place] [address] Dr. Jeramy DumontMethodology:CommentWilson Street Hospital on above: Result Comment: This liquid based ThinPrep(R) pap test was screened with the use of an image guided system.Performed By: #### [id number] #### [facility] [address] [place] [address] Dr. Jeramy DumontNote:CommentWilson Street Hospital on above:Result Comment: The Pap smear is a screening test designed to aid in the detection of premalignant and malignant conditions of the uterine cervix. It is not a diagnostic procedure and should not be used as the sole means of detecting cervical cancer. Both false-positive and false-negative reports do occur. .Performed By: #### [id number] #### [facility] [address] [address] [address] Jeramy DumontPerformed by:CommentWilson Street Hospital on above: Result Comment: Dick Mancia, Palliative Care Nurse (ASCP)Performed By: #### [id number] #### [facility] [address] [address] [address] Jeramy DumontSpecimen adequacy:CommentWilson Street Hospital on above:Result Comment: Satisfactory for evaluation. Endocervical and/or squamous metaplastic cells (endocervical component) are present.Performed By: #### [id number] #### [facility] [address] [place] [address] Dr. Jeramy DumontXR DEXA BONE DENSITYon 68-07-3879FV DEXA BONE DENSITYEXAMINATION: XR DEXA BONE DENSITY, 06/23/2022 9:55 AM EST HISTORY: [...] Moderate Fracture Risk Electronically authenticated by: ÁNGEL ANTHONY Date: 2022-06-23 11:46[facility] AUTO DIFFon 31-55-9424BVOE #0.1 103/ulNormal0.0-0.1[facility] on above:Performed By: #### CBC ####[facility] [address] [address]Dr.Yilan DumontBasophils/100 WBC (Bld)0.6 %Normal0.2-2.0[facility] on above:Performed By: #### CBC ####[facility] Mkxc[address] [place], [place] [address]Dr.Jeramy ChangEO #0.2 103/ulNormal0.0-0.7The [facility] HospitalComment on above:Performed By: #### CBC ####[facility] Jxlftkdub[address] [place], [place] [address]Dr.Jeramy ChangEosinophils/100 WBC (Bld)1.9 %Normal 0.9-7.0The [facility] HospitalComment on above:Performed By: #### CBC ####[facility] [address] [place], [place] [address]Dr.Moniquelaura Dumont Erythrocyte distribution width (RBC) [Ratio]13.3 %Evowoa02.0-15.0The [facility] HospitalComment on above:Performed By: #### CBC ####[facility] [address] [place], [place] [address]Dr.Moniquelaura ChangHematocrit (Bld) [Volume fraction]41.1 %Qsbaqu59.0-48.0The [facility] HospitalComment on above:Performed By: #### CBC ####[facility] Rtxifkmdis[address] [place], [place] [address]Dr.Moniquelaura ChangHemoglobin (Bld) [Mass/Vol]13.4 g/dL Nibmll95.0-16.0The [facility] HospitalComment on above:Performed By: #### CBC ####[facility] Hctdtyayca[address] [place], [place] [address]Dr. Jeramy ChangIG #0.02 10e3/ulNormal0.00-0.03The [facility] HospitalComment on above: Performed By: #### CBC ####[facility] Ieddlehvxd[address] [place], [place] [address]Dr.Moniquelaura ChangIG %0.2 %Normal0.0-0.5The [facility] HospitalComment on above:Performed By: #### CBC ####[facility] T[address]wk[address] [place], [place] [address]Dr.Moniquelaura ChangLYMPH #3.2 103/ulNormal1.2-3.8The [facility] HospitalComment on above:Performed By: #### CBC ####[facility] [address] [place] [address]Dr. Jeramy DumontLymphocytes/100 WBC (Bld)39.1 %Agtvfu49.5-60.0The [facility] Comment on above:Performed By: #### CBC ####[facility] [address] [address]Dr.Jeramy DumontMANUAL DIFF REQNONormalThe [facility] HospitalComment on above:Performed By: #### CBC ####[facility] [address]lfqq[address] [place], [place] [address]Dr.Jeramy DumontMCH (RBC) [Entitic mass]30.7 pjFpqeci25.7-34.0The [facility] HospitalComment on above: Performed By: #### CBC ####[facility] Kxeociwft[address] [place], [place] [address]Dr.Moniquelaura DumontMCHC (RBC) [Mass/Vol]32.6 g/dLNormal 29.9-35.2The [facility] HospitalComment on above:Performed By: #### CBC ####[facility] Jrsrfwsvwy[address] [place], [place] [address]Dr. Moniquelaura DumontMCV (RBC) [Entitic vol]94.3 gXUmihfu56.0-99.0The [facility] Comment on above:Performed By: #### CBC ####[facility] Swqfzwldgf[address] [place], [place] [address]Dr.Moniquelaura DumontMONO #0.6 103/ulNormal0.3-0.8 The [facility] HospitalComment on above:Performed By: #### CBC ####[facility] [address]kstguc[address] [place], [place] [address]Dr.Jeramy Dumont Monocytes/100 WBC (Bld)6.6 %Normal1.7-12.0The [facility] HospitalComment on above: Performed By: #### CBC ####[facility] Srnudeoedh[address] [place], [place] [address]Dr.Jeramy DumontNEUT #4.3 103/ulNormal1.4-6.5The [facility] HospitalComment on above:Performed By: #### CBC ####[facility] [address] [address]Dr.Jeramy DumontNeutrophils/100 WBC (Bld)51.6 %Lmmawv03.0-75.0The [facility] HospitalComment on above:Performed By: #### CBC ####[facility] [address]oygquuf[address] [place], [place] [address]Dr.Jeramy DumontPlatelet mean volume (Bld) [Entitic vol]9.8 fLNormal9.5-13.5 The [facility] HospitalComment on above:Performed By: #### CBC ####[facility] [address]wtef[address] [place], [place] [address]Dr.Jeramy GqnfoDYZ765 103/xiXnkeib886-267Wqf [facility] HospitalComment on above:Performed By: #### CBC ####[facility] [address]zmsrbw[address] [place], [place] [address]Dr. Jeramy ChangRBC4.36 106/ulNormal4.20-5.40The [facility] HospitalComment on above: Performed By: #### CBC ####[facility] Orxzczfs[address] [place], [place] [address]Dr.Jeramy DumontWBC8.3 103/ulNormal4.0-11.0The [facility] HospitalComment on above:Performed By: #### CBC ####[facility] Amjkaijxlw[address] [place], [place] [address]Dr.Yilaura ChangFREE T3on 65-04-2220RPKI T32.20 pg/mlLNormal2.18-3.98The [facility] HospitalComment on above:Performed By: #### FT3, TSH, BMP, LIVER ####[facility] Hzfaf[address]vwm[address] [place], [place] [address]Dr. Yilan ChangFREE T4on 61-41-8894Ffsu T4 [Mass/Vol]0.96 ng/dLNormal0.76-1.46The [facility] Comment on above:Performed By: #### FT4 ####[facility] [address] [address]Dr.Yilan Lynn PROFILEon 04-27-2022 Albumin [Mass/Vol]3.7 g/dLNormal3.4-5.0The [facility] Healthment on above: Performed By: #### FT3, TSH, BMP, LIVER #### [facility] [address] [address] [address] Jeramy DumontAlbumin/Globulin [Mass ratio]1.1 {ratio}NormalThe [facility] HospitalComment on above:Performed By: #### FT3, TSH, BMP, LIVER #### [facility] [address] [place] [address] Dr. Jeramy Lombardi [Catalytic activity/Vol]64 U/XEsxsqw63-500Sxo [facility] HospitalComment on above:Performed By: #### FT3, TSH, BMP, LIVER #### [facility] [address] [place] [address] Dr. Jeramy Vergara [Catalytic activity/Vol]28 U/HIqdljm90-28Gnb [facility] HospitalComment on above:Performed By: #### FT3, TSH, BMP, LIVER #### [facility] [address] [place] [address] Dr. Jeramy Cervantes [Catalytic activity/Vol]16 U/MQnseoj09-64H[facility] on above:Performed By: #### FT3, TSH, BMP, LIVER #### [facility] [address] [place] [address] Dr. Jeramy Cortes, CONJUGATED0.1 mg/dLNormal0.0-0.2The [facility] Comment on above:Performed By: #### FT3, TSH, BMP, LIVER #### [facility] [address] [place] [address] Dr. Jeramy Porterirubin [Mass/Vol]0.2 mg/dLNormal0.2-1.0The [facility] Comment on above:Performed By: #### FT3, TSH, BMP, LIVER #### [facility] [address] [place] [address] Dr. Jeramy DumontGlobulin (S) [Mass/Vol]3.5 g/dLNormalThe [facility] HospitalComment on above:Performed By: #### FT3, TSH, BMP, LIVER #### [facility] [address] [address] [address] Jeramy DumontProtein [Mass/Vol]7.2 g/dLNormal6.4-8.2The [facility] Comment on above:Performed By: #### FT3, TSH, BMP, LIVER #### [facility] [address] [address] [address] Jeramy DumontPROF CHEM 8 (BAS METB)on 56-92-5774Rwmwp gap [Moles/Vol]10.3 mmol/LNormalThe [facility] HospitalComment on above:Performed By: #### FT3, TSH, BMP, LIVER #### [facility] [address] [place] [address] Dr. Jeramy DumontCalcium [Mass/Vol]9.0 mg/dLNormal8.5-10.1[facility] Comment on above:Performed By: #### FT3, TSH, BMP, LIVER #### [facility] [address] [place] [address] Dr. Jeramy DumontChloride [Moles/Vol]105 mmol/DWzifor70-702XanKettering Health [facility] Township Comment on above:Performed By: #### FT3, TSH, BMP, LIVER #### [facility] [address] [address] [address] Jeramy DumontCO2 [Moles/Vol]30.7 mmol/VAnhrrh72.0-32.0[facility] Comment on above:Performed By: #### FT3, TSH, BMP, LIVER #### [facility] [address] [place] [address] Dr. Jeramy DumontCreatinine [Mass/Vol]0.85 mg/dLNormal0.55-1.02The [facility] HospitalComment on above:Performed By: #### FT3, TSH, BMP, LIVER #### [facility] [address] [place] [address] Dr. Yilan ChangEGFR-AF ANGUILLAN>60Normal>=60The [facility] HospitalComment on above:Performed By: #### FT3, TSH, BMP, LIVER #### [facility] [address] [place] [address] Dr. Jeramy KerrGFR-NON AF ANGUILLAN>60Normal>=60The [facility] HospitalComment on above:Performed By: #### FT3, TSH, BMP, LIVER #### [facility] [address] [place] [address] Dr. Jeramy DumontGlucose [Mass/Vol]101 mg/cZCamnub78-045Xyk [facility] Comment on above:Performed By: #### FT3, TSH, BMP, LIVER #### [facility] [address] [place] [address] Dr. Jeramy DumontPotassium [Moles/Vol]4.0 mmol/LNormal3.5-5.1The [facility] Comment on above:Performed By: #### FT3, TSH, BMP, LIVER #### [facility] [address] [place] [address] Dr. Jeramy DumontSodium [Moles/Vol]142 mmol/OKqejkz943-274Avs [facility] Comment on above:Performed By: #### FT3, TSH, BMP, LIVER #### [facility] [address] [place] [address] Dr. Jeramy DumontUrea nitrogen [Mass/Vol]15.0 mg/dLNormal7.0-18.0The [facility] HospitalComment on above:Performed By: #### FT3, TSH, BMP, LIVER #### [facility] [address] [place] [address] Dr. Jeramy DumontUrea nitrogen/Creatinine [Mass ratio]17.6 mg/mgNormalThe [facility] HospitalComment on above:Performed By: #### FT3, TSH, BMP, LIVER #### [facility] [address] [place] [address] Dr. Jeramy Orr 19-20-3562KAE3.960 uIU/mLNormal0.358-3.740The [facility] HospitalComment on above:Performed By: #### FT3, TSH, BMP, LIVER ####[facility] [address] [place], [place] [address]NjTeddy Dumont Covid-19 PCR ([facility])on 85-69-0122VIFW-CoV-2 (COVID-19) RNA TRAVON+probe Ql (Unsp spec)Not detectedNormalNOT DETECTEDThe [facility] on above:Result Comment: This test is not yet approved or cleared by the [place] FDA. When there are no FDA-approved or cleared tests available, and other criteria are met, FDA can make tests available under an emergency access mechanism called an Emergency Use Authorization (EUA). The EUA for this test is supported by the Dye Blender of Health and Human Service's (HHS's) declaration [...] of clinical signs and symptoms consistent with SARS-CoV-2.Performed By: #### CVDTB ####[facility] [address] [place], [place] [address]It. Jeramy ChangEstablished Visit (Gastroenterology)on 09-32-1926Vcaxohjptjv Visit (Gastroenterology) Diagnoses/Problems Assessed Chronic idiopathic constipation (564.00) (K59.04) Esophageal reflux (530.81) (K21.9) Orders Chronic idiopathic constipation Start: Amitiza 8 MCG Oral Capsule; Take 1 capsule twice daily Rx By: Krzysztof Larkin; Dispense: 0 Days ; #:60 Capsule; Refill: 1;For: Chronic idiopathic constipation; ASHLYN = N; Verified Transmission to [facility] #[id number]; Last Updated By: Versus; 04/30/2020 1:37:03 PM Esophageal reflux Renew: Omeprazole 20 MG Oral Capsule Delayed Release; TAKE 1 CAPSULE DAILY Rx By: Krzysztof Larkin; Dispense: 0 Days ; #:90 Capsule; Refill: 1;For: Esophageal reflux; ASHLYN = N; Verified Transmission to [facility] #[id number]; Last Updated By: Thomas Marshall; 04/30/2020 1:37:11 PM Patient Discussion/Summary Change omeprazole [...] at low-dose 72 g dose continues to havesome urgency and cramping. Uses omeprazole before bed. Intermittently has nighttime coughing. No dysphagia or odynophagia. Colonoscopy last year without significant lesions. She has family history ofcolorectal cancer. Review of Systems Constitutional: no fever, [...] CAPSULE BY MOUTH EVERY DAY LAST REFILL UNTILSEEN IN OFFICE Womens One Daily Oral Tablet Vitals Vital Signs Recorded: 30Apr2020 01:17PM Azycxsnjklk90 F Height5 ft 3 in Bfgrcq751 lb BMI Aradofsspj34.74 BSA Calculated1.63 Physical Exam Constitutional General appearance: [...] MD; Apr 30 2020 1:41PM EST (Author) [facility] TouchworksI BRAIN WO/W IVCONon 65-46-4578Igjpcubqc ClinicC-Reactive Proteinon 20-41-6520TXR mass concmg/LNormal0.0-0.4Doctors HospitalComment on above:Performed By: #### CBCDIF, CRP #### [facility] [address] [place] [address]., [place] [address] #### WSR #### [place] [address] [address] VGG and Differentialon 67-20-8557Miz Baso0.05 k/uLNormal<0.11 [facility] HospitalComment on above:Performed By: #### CBCDIF, CRP #### [address] [place] [address] #### WSR #### [place] [address] [address] [address] Sut Mono0.49 k/uLNormal<0.87[facility] HospitalComment on above: Performed By: #### CBCDIF, CRP #### [address] [place] [address] #### WSR #### [address] [place] [address] Gll Neut6.28 k/uLNormal1.45-7.50[facility] HospitalComment on above: Performed By: #### CBCDIF, CRP #### [address] [place] [address] #### WSR #### [address] [place] [address] [address] [address] Vwnhpdhw nRBC<0.01Normal<0.01[facility] HospitalComment on above: Performed By: #### CBCDIF, CRP #### [address] [place] [address] #### WSR #### [address] [place] [address] Xrgsmqqyg/100 WBC (Bld)0.6 %NormalMarohiohealth berger hospital HospitalComment on above:Performed By: #### CBCDIF, CRP #### [address] [place] [address] #### WSR #### [facility] [address] [address] WZMTHXbzv DiffNormalKettering Health Main Campus HospitalComment on above:Performed By: #### CBCDIF, CRP #### [address] [place] [address] #### WSR #### [facility] [address] [address] Rrkkzasulom #/vol (Bld)0.08 10*3/uLNormal<0.46[facility] Comment on above:Performed By: #### CBCDIF, CRP #### [address] [place] [address] #### WSR #### [place] [address] [address] [address] Rbotnbnjjvg/100 WBC (Bld)0.9 %NormalDoctors HospitalComment on above:Performed By: #### CBCDIF, CRP #### [address] [place] [address] #### WSR #### [address] [place] [address] Xgafnuyhbsv distribution width Ratio (RBC)13.5 %Tesbof64.5-15.0 Doctors HospitalComment on above:Performed By: #### CBCDIF, CRP #### [address] [place] [address] #### WSR #### [facility] [address] [address] Hwqhawlayt Volume Fraction (Bld)42.3 %Wvwnsx19.0-46.0Doctors HospitalComment on above:Performed By: #### CBCDIF, CRP #### [address] [place] [address] #### WSR #### [facility] [address] [phone] Cnsselglvy mass conc (Bld)14.0 g/zIFgvcji32.5-15.5[facility] Comment on above:Performed By: #### CBCDIF, CRP #### [address] [place] [address] #### WSR #### [place] [address] Fvqxakjzpam #/vol (Bld)2.07 10*3/uLNormal1.00-4.00[facility] Comment on above:Performed By: #### CBCDIF, CRP #### [address] [place] [address] #### WSR #### [place] [address] Gfnxtswloly/100 WBC (Bld)23.1 %NormalDoctors HospitalComment on above:Performed By: #### CBCDIF, CRP #### [address] [place] [address] #### WSR #### [address] [place] [address] IBF Entitic mass (RBC)31.1 vMTsohfb16.0-34.0[facility] Comment on above:Performed By: #### CBCDIF, CRP #### [address] [place] [address] #### WSR #### [facility] [address] [phone] VQXC mass conc (RBC)33.1 g/uPWvggch43.5-36.0[facility] Comment on above:Performed By: #### CBCDIF, CRP #### [address] [place] [address] #### WSR #### [address] [place] [address] [place] [phone] Entitic volume (RBC)94.0 dVUtkplg06.0-100.0[facility] Comment on above:Performed By: #### CBCDIF, CRP #### [address] [place] [address] #### WSR #### [place] [phone]/100 WBC (Bld)5.5 %NormalDoctors HospitalComment on above:Performed By: #### CBCDIF, CRP #### [address] [place] [address] #### WSR #### [place] [address] Ydisshqtyuk/100 WBC (Bld)69.9 %NormalDoctors HospitalComment on above:Performed By: #### CBCDIF, CRP #### [address] [place] [address] #### WSR #### [place] [address] [place] [phone] /100 CBIIkgmuo1Qdahpdozy HospitalComment on above:Performed By: #### CBCDIF, CRP #### [address] [place] [address] #### WSR #### [place] [address] [place] [address] Ilwhczll mean volume Entitic volume (Bld)9.5 fLNormal9.0-12.7 Doctors HospitalComment on above:Performed By: #### CBCDIF, CRP #### [address] [place] [address] #### WSR #### [place] [phone] #/vol (Bld)279 10*3/vAWpcjxe974-183Pstfchelz Hospital Comment on above:Performed By: #### CBCDIF, CRP #### [address] [place] [address] #### WSR #### [place] [phone] #/vol (Bld)4.50 10*6/uLNormal3.90-5.20Doctors HospitalComment on above:Performed By: #### CBCDIF, CRP #### [address] [place] [address] #### WSR #### [place] [address] UEK #/vol (Bld)8.97 10*3/uLNormal3.70-11.00Doctors HospitalComment on above:Performed By: #### CBCDIF, CRP #### [address] [place] [address] #### WSR #### [place] [address] [place] [phone] NOTEon 65-50-7713UF NOTEHNO ID: [id number] Author: Erwin Napier MD Service: Emergency Medicine Author Type: Physician Type: ED Notes Filed: 11/03/2018 2:16 PM Note Text: Doing better, followed up with [facility] NOTEHNO ID: [id number] Author: Vasquez BairesRn) STEVE Winchester Service: ? Author Type: Registered Nurse Type: ED Notes Filed: 10/31/2018 9:15 AM Note Text: Pt to the ED by [facility] c/c 04/12 lower back pain she [...] measures - notify physician of changes in conditionC[facility] NOTEHNO ID: [id number] Author: Lubna (Rn) Tim RN Service: ? Author Type: Registered Nurse Type: ED Notes Filed: 10/31/2018 9:08 AM Note Text: Bed: ED-15 Expected date: Expected time: Means of arrival: Comments: [facility] NOTEon 84-58-6988Ufjghrl mass concHNO ID: [id number] Author: Erwin Napier MD Service: Emergency Medicine [...] has TENS unit at home. Evaluated by intake specialist earlier today who advised her to [...] Ordered and Reviewed CBC + AUTO DIFF (AK,AV,EU,FV,HL,GURDEEP,MM,SP) SED RATE ERYTHROCYTE (AK,AV,EU,FV,HL,GURDEEP,MM,SP) C-REACTIVE PROTEIN (CRP) (AK,AV,EU,FV,HL,GURDEEP,MM,SP) URINALYSIS WITH MICROSCOPIC (AK,AV,EU,FV,HL,GURDEEP,MM,SP) Procedures ED Course / Clinical Impression Clinical [...] stable SIGNATURE: MD Erwin Zarco MD 10/31/18 1421NoMary Rutan Hospitaled Rate Westergrenon 28-36-8359Fuv Rate Westergren8 mm/hrNormalDoctors HospitalComment on above:Performed By: #### CBCDIF, CRP #### [facility] [address] [place] [address] #### WSR #### [facility] [address] [place], [place] [address] Rwzzcctplmrhniroob 48-31-0864OzmcoscdolqoollzLqdjsfbbf #: [id number] Pathologist: SETH BERNAL MD Date of Procedure: 09/12/2018 Date Received: 09/13/2018 Date Reported 09/14/2018 Submitting Physician: KEILY CRAIN MD Location: [facility] FINAL DIAGNOSIS SKIN, RIGHT BAHAI, EXCISION: CHANGES CONSISTENT WITH PREVIOUS PROCEDURE, PRESENT ON THE DEEP AND PERIPHERAL MARGIN WITHOUT RESIDUAL SQUAMOUS CELL CARCINOMA SEEN. Electronically Signed Out by SETH BERNAL M.D. Electronically Signed Out By SETH BERNAL MD/[facility] Microscopic Description: Microscopic examination reveals a specimen that extends into the subcutaneous fat. An area with horizontally oriented collagen and vertically oriented vessels is present. 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 Specimens Submitted As: A: SKIN, RIGHT BAHAI Gross Description: Received in formalin is a craig piece of skin measuring 16 x 5 x 1 mm. Inked and embedded in toto in two blocks. mlz/09/13/2018[facility] CenterComment on above:Performed By: #### D #### DermatopathologyDermatopathologyon 23-25-9871MwttldahkgcjllvsPsmannujz #: [id number] Pathologist: SETH BERNAL MD Date of Procedure: 07/11/2018 Date Received: 07/12/2018 Date Reported 07/13/2018 Submitting Physician: KEILY CRAIN MD Location: [facility] FINAL DIAGNOSIS A. 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 B. SKIN, RIGHT BAHAI, BIOPSY: CONSISTENT WITH INVASIVE SQUAMOUS CELL CARCINOMA, [...] Electronically Signed Out By SETH BERNAL MD/[facility] Microscopic Description: A. 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 Clinical History: A: NAD. B: ISK vs. SCC. Specimens Submitted As: A: SKIN, RIGHT PHMA B: SKIN, RIGHT BAHAI Gross Description: A: Received in formalin is a craig-brown piece of skin measuring 00h87n0nq. The specimen is inked and embedded in toto. B: Received in formalin is a craig piece of skin measuring 86c3h3jb. The specimen is inked and embedded in toto. ink/07/12/2018[facility] CenterComment on above:Performed By: #### D #### Dermatopathology Vital Signs Date TimeVital SignValuePerforming VyutquabbTnaaxsdo36-90-5266 11:09-0400Body tjoydc784.02 cmCore[facility]06-04-2025 11:09-0400Body mass index (BMI) [Ratio]24.7 kg/z3XfphijstrCorey Hospital06-04-2025 11:09-0400Body smtagv51.5 kgCore[facility] Hospital06-04-2025 11:09-0400Diastolic blood volruzck10 mm[Hg][facility] 12-05-2024 11:09-0400Heart rate69 /minCorey Hospital 12-05-2024 11:09-0400Systolic blood tpvgnkuf779 mm[Hg][facility]04-30-2025 15:04-0400Body cowtru504 cmChristopher Kenton DO Work Phone: [facility] HospitalAxkkdqeopa67-98-1636 15:04-0400Body mass index (BMI) [Ratio]24.62 kg/g4Uoqunktkcob Kenton DO Work Phone: [phone] HospitalWcbezsyjew90-51-9411 15:04-0400Body ehfbhw35.05 kgChristopher Kenton DO Work Phone: [facility] HospitalEusvcbwfbw48-71-4436 15:04-0400Diastolic blood ybigagdg73 mm[Hg]Christopher Kenton DO Work Phone: [facility] HospitalIfqiirjpjk50-87-0796 15:04-0400Heart rate75 /min Christopher Kenton DO Work Phone: [facility] HospitalQfhskwlrep50-53-8044 15:04-0400Systolic blood lzcqyplo614 mm[Hg]Christopher Kenton DO Work Phone: [facility] HospitalCjlezisuss20-73-3775 09:25-0400Body ejwwgv423.02 cmCorey Hospital03-26-2025 09:25-0400Body mass index (BMI) [Ratio]24.9 kg/t2AqoxevxxjCorey Hospital03-26-2025 09:25-0400Body kxqivn10.8 kgCorey Hospital02-27-2025 10:53-0500Body mass index (BMI) [Ratio]23.65 kg/x7Duvpyrdutuj Kenton DO Work Phone: [facility] HospitalGcjsyxwmss72-10-2538 10:53-0500Body .51 kgChristopher Kenton DO Work Phone: [facility] HospitalIwnldpwqnk52-24-5996 10:53-0500Diastolic blood fxkiltgh02 mm[Hg]Christopher Kenton DO Work Phone: [phone]-[facility] HospitalKmcxvrutdr68-30-6806 10:53-0500Heart rate75 /min Christopher Kenton DO Work Phone: [phone] [place], [place] [address]Tlruzzyldo26-55-9294 10:53-9837MmT1% (BldA) [Mass fraction]97 %[facility] Chronically Illedward Fung DO Work Phone: [facility] HospitalJbmqnpgksq11-23-4753 10:53-0500Systolic blood btxzneqr611 mm[Hg][facility] Chron[facility] Illedward Fung DO Work Phone: [phone]-[facility] HospitalIakqalbkvz52-66-3258 08:24-0500Body zyjhqs592.02 cmCore[facility] Hospital02-25-2025 08:24-0500Body mass index (BMI) [Ratio]24.3 kg/b3SzvgjvuobCorey Hospital02-25-2025 08:24-0500Body wtvsso15.14 kgCorey Hospital02-25-2025 08:24-0500Diastolic blood maaabdeh21 mm[Hg][facility]02-25-2025 08:24-0500 Heart rate76 /minCorey Hospital02-25-2025 08:24-0500Systolic blood stutzhvv244 mm[Hg][facility]01-10-2025 10:46-0500 Body dqxoxu585.02 cmCore[facility] Hospital01-10-2025 10:46-0500Body mass index (BMI) [Ratio]23.7 kg/d9ZvylcpdzyCorey Hospital01-10-2025 10:46-0500Body ijqgei14.78 kgCorey Hospital01-10-2025 10:46-0500Diastolic blood xsatvckv71 mm[Hg][facility] 07-13-2024 10:46-0500Heart rate73 /minCorey Hospital 07-13-2024 10:46-0500Systolic blood vvxpymqx139 mm[Hg][facility]11-30-2023 13:15-0500Body .02 cmSharonda Calix Other [facility] Other 322657-47-1351 13:15-0500Body mass index (BMI) [Ratio] 23.27 kg/p8JbjgwhSharonda Calix Other [facility] Other 11-30-2023 13:15-0500Body ffryprzgcal11.9 [degF]Sharonda Calix Other [employer] Other 11-30-2023 13:15-0500Body fgrjuv54.6 kgSharonda Calix Other [employer] Other 11-30-2023 13:15-0500Diastolic blood mm[Hg] Sharonda Calix Other [employer] Other 11-30-2023 13:15-5172JxH7% (BldA) [Mass fraction]95 % Sharonda Calix Other [employer] Other 11-30-2023 13:15-0500Systolic blood mm[Hg] Sharonda Calix Other [facility] Other 03-17-2023 11:00-0400Body ngoqqw003.64 cmLkellen Brantley Other [facility] Other 03-17-2023 11:00-0400Body mass index (BMI) [Ratio] 20.98 kg/a2SlqdkrglEnrrique Brantley Other [place] [employer] Other 03-17-2023 11:00-0400Body mnfuez82.97 kgLashola Brantley Other [facility] [employer] Other 03-17-2023 11:00-0400Diastolic blood jivxbezx02 mm[Hg] Enrrique Brantley Other [place] [employer] Other 03-17-2023 11:00-0400Systolic blood kjaxfknt173 mm[Hg] Enrrique Arroyoack Other [facility] [employer] Other 01-26-2023 12:11-0500Diastolic blood ofyzfpvv49 mm[Hg] MD Jameel Massey Work Phone: [phone])855-[address] [place], [place] 3305501-26-2023 12:11-0500 Heart rate71 /minMD Jameel Massey Work Phone: [phone])730-[address] [place], [place] 3305501-26-2023 12:11-0500 Respiratory rate16 /minMD Jameel Massey Work Phone: [phone] [place], [place] 3305501-26-2023 12:11-0500 SaO2% (BldA) [Mass fraction]96 %MD Jameel Massey Work Phone: [phone] [place], [place] 3305501-26-2023 12:11-0500 Systolic blood uktfswrz142 mm[Hg]MD Jameel Massey Work Phone: 1(730)022-[address] [place], [place] 3305501-26-2023 09:45-0500 Body icahpj520.02 cmMD Jameel Massey Work Phone: [phone])094-[address] [place], [place] 3305501-26-2023 09:45-0500 Body qwrcwpytnsz66.4 [degF]MD Jameel Massey Work Phone: [phone])903-[address] [place], [place] 3305501-26-2023 09:45-0500 Body qmveyv80.96 kgMD Jameel Massey Work Phone: [facility] Encounters Encounter DateEncounter TypeCare ProviderFacilselect medical specialty hospital - akronStart: 05-07-2025 End: 34-79-6145yalrvomhbxDWKYAshtabula General Hospitaltart: 81-79-8836vhfdtiwsfzQZLWAshtabula General Hospitaltart: 93-25-4150zypjqsknqxPIMHAshtabula General Hospitaltart: 24-98-9180djpjtqktevPTODK GRUBBUniMemorial Health System Selby General Hospitaltart: 34-73-2547fhfvheaqhqYWMRAshtabula General Hospitaltart: 12-05-2024 End: 12-27-3043nplvmgosesUnkxoxoegUniversity Hospitals Cleveland [facility] Center Work Phone: Start: 12-05-2024 End: 44-29-0801Cljyfmw encounter procedureDosher Memorial Hospital Physician GroupSelect Medical Specialty [facility] Work Phone: Start: 50-01-0481tpflvtwhdlFSNRAshtabula General Hospitaltart: 11-15-2024 End: 01-25-3028fiogwrjgvtSAJUMSH [facility]-Fairhilltart: 95-80-9525pyzevdqyxkRINJAshtabula General Hospitaltart: 10-31-2024 End: 75-15-2361Rvtlca outpatient visit 25 minutesChristopher Kenton DO Work Phone: aLIZ LEFTYUEComment on above:Mild neurocognitive disorder (Primary Dx)Start: 10-31-2024 End: 58-98-6790jljumvnwoeZHVZKPGVQCF HASSETTNot AvailableStart: 10-31-2024 End: 64-62-3074Ezdpsq flowsheetChristopher Kenton DO Work Phone: aLIZ NATHANIELEVUEStart: 10-31-2024 End: 90-43-0728Qmcvtf flowsheetChristopher Kenton DO Work Phone: aLIZ ARMSTRONGEVUEStart: 09-26-2024 End: 56-98-0314labrlemplqAsocikbdiUniversity Hospitals Cleveland Medical Center Work Phone: Start: 09-26-2024 End: 07-84-3086Eeccejg encounter procedureDosher Memorial Hospital Physician Group-[facility] Work Phone: start: 33-53-5983rwejknvwdfNHHI [facility] Hospitaltart: 09-17-2024 End: 31-48-5853mimbmthugdMHTYTMUJEUH HASSETTNot AvailableStart: 09-10-2024 End: 91-15-5918kgxfkbchfpWEWGHKKH DENBESTENNot AvailableStart: 09-10-2024 End: 01-15-7395Hdfsft flowsheetNicstaciaas Maritzasten PhD Work Phone: ana ELVIEUSKYStart: 09-10-2024 End: 59-24-9310Lwowvm Eva Guillen PhD Work Phone: aNA ELVIEUSKYStart: 08-31-2024 End: 16-47-6759Skjnkzher Result EncounterChristopher Kenton DO Work Phone: noms External Department UnsolicitedStart: 08-31-2024 End: 18-89-1302Tyihlnjod Result EncounterChristopher Kenton DO Work Phone: noMS External Department UnsolicitedStart: 08-31-2024 Non-patient / Non-visitDosher Memorial Hospital Physician Group-[facility] Work Phone: Start: 08-30-2024 End: 86-76-8363Twujpo flowsheetChristopher Kenton DO Work Phone: aNA BELLEVUEStart: 08-30-2024 End: 47-25-7344Mkldjq flowsheetChristopher Kenton DO Work Phone: aNA BELLEVUEStart: 08-30-2024 End: 58-57-3689Rtoqws outpatient new 45 minutesChristopher Kenton DO Work Phone: ana BELLEVUEComment on above:Mild cognitive impairment (Primary Dx); Family history of Alzheimer's diseaseStart: 08-30-2024 End: 00-33-1946qgxjwqrjflRNXEKBYTSVG KENTONNot AvailableStart: 08-28-2024 End: 29-99-7326fppkjhiextMdopuxstpUniversity Hospitals Cleveland Medical Center Work Phone: Start: 08-28-2024 End: 34-07-7488Crpshrd encounter procedureDosher Memorial Hospital Physician Group-[facility] Work Phone: Start: 07-57-1715dqabauljqsCYXSTrumbull Regional Medical Centertart: 08-18-2024 End: 64-01-5342qvehffljfcIEGZWFostoria City Hospital Start: 08-18-2024 End: 21-28-3434khttfbmqqtJHYJMFostoria City Hospital Start: 08-08-2024 End: 86-54-8289lfajhethukBUAFMFostoria City Hospital Start: 07-25-2024 End: 58-99-3667rpdhgiwzgsSknQsqmln Hospital Ambulatory PPGStart: 07-24-2024 ambulatoryAshtabula General Hospitaltart: 93-08-1338Eeh- patient / Non-visitRadha Physician Group-[facility] Work Phone: Start: 07-13-2024 End: 62-88-0861Nzkepyi encounter procedureRadha Physician Group-[facility] Work Phone: Start: 81-14-3294hjkrkttvhhIQKATrumbull Regional Medical Centertart: 06-15-2024 End: 21-90-8587otletjcgznPRRMQFostoria City Hospital Start: 06-12-2024 End: 82-87-8712zcteovymueZNXBTrumbull Regional Medical Centertart: 07-00-1161wpjrirjauuSYLLAshtabula General Hospitaltart: 02-99-5292iploxrseryYRLSTrumbull Regional Medical Centertart: 04-16-2024 End: 07-84-8756rlliauoomqVtjiwgs Vnorman Kemp MDFacility:PM [place] Start: 08-26-2023 End: 99-39-8176jylecwzjayGxbula Braun Other [facility] [employer] Other Start: 19-44-2495Vufodkbbn encounterMarcia [facility]akanak Hospital ClinicStart: 08-18-2023 End: 33-06-4233jxnaeywhhvMkmeul H TimmisFacility:FTMCStart: 08-18-2023 End: 00-03-0293Ykyikxfgd Result EncounterHilary H Pawan PAUL Work Phone: noms External Department UnsolicitedStart: 08-18-2023 End: 21-99-4139Lcfhcnhzd Result EncounterHilary H Gordonmis Work Phone: noms External Department UnsolicitedStart: 07-06-2023 End: 44-98-2149yniyplxmawJCAKEY H TIMMISNot AvailableStart: 07-06-2023 End: 68-31-0093Ofx-admission assessmentHilary H Timmis [facility] Start: 06-21-2023 End: 58-10-2226dzczswfyjdFjliaz Braun Other [facility] [employer] Other Start: 30-55-3887Wsabgutln encounterMarcia [facility]akan[facility] Hospital ClinicStart: 06-20-2023 End: 68-15-5789eupzqdgqszYkrpre Michele Other [facility] [employer] Other Start: 08-49-4459Hhwpflcck encounterMarcia [facility]akan[facility] Hospital ClinicStart: 06-17-2023 End: 09-06-9612ejmcesmhuyWntfmz Michele Other [facility] [employer] Other Start: 51-28-6989Djonhflcu encounterSharonda De Los Santos [facility]start: 06-06-2023 End: 64-18-6387ohnwavtmusHphgov Braun Other [facility] [employer] Other Start: 60-25-5332Fhekrwpbw encounterSharonda De Los Santos [facility] Springstart: 06-02-2023 End: 33-19-2175nbsekbndkrWxwyjz Braun Other [facility] [employer] Other Start: 93-55-7185Wckdkz outpatient visit 25 minutes Sharonda De Los Santos [facility]start: 05-19-2023 End: 60-88-4353rlyadlnzwiFjxkuj Braun Other [facility] [employer] Other Start: 40-79-9036Sbdfjxq evaluation of patient and reportSharonda De Los Santos [facility] Springstart: 10-21-2022 End: 19-48-1784nlnlvrpqyrXTJKZXJWWXAP LAKSHMIPATHY .Facility:V6Dqvmk: 09-17-2022 End: 62-35-0855sgrpyrtgurVnyvbubi McCormack Other [place] [employer] Other Start: 38-49-4879Jazmfm outpatient visit 15 minutes Enrrique Rondon GastroenterologyStart: 08-04-2022 End: 61-38-7158kqzbcuqlxpTJ STEVEN R ZIEBERFacility:V8Uhmsb: 07-29-2022 End: 42-37-2055muxuistlzsPbmmztjv R McCormackFacility:[facility] Hospitaltart: 07-29-2022 End: 68-00-7364Lrzeyolgc to same day surgery centerMD Jameel Massey Work Phone: [facility] Work Phone: Start: 07-29-2022 End: 91-90-2947uxtqtmphmlPC Marc Naderer Work Phone: [facility] Work Phone: Start: 07-13-2022 End: 01-10-6284sacvcoiixbIHLN CHACKOFacility:S7Fsoyy: 06-23-2022 End: 72-01-4458qabpxefrdfHU [facility] .Facility:B1Rzbev: 06-16-2022 Steven Jung MD Work Phone: [facility] CampusStart: 06-11-2022 End: 74-62-5730erzxfqslvwIJ [facility] .Facility:Q8Yyhpi: 42-18-2901Vryery Jyoti Jung MD Work Phone: Internal MedicineComment on above:Refill RequestStart: 46-89-1281rwyswbjwjiPBCX ROBERTS .Facility:T5Zvvok: 04-30-2022 End: 54-10-3623erqmnmbwazKX JAMEEL Ellis NADERERFacility:R7Xrxyt: 04-27-2022 End: 92-39-4725elapstvymzWA JAMEEL Ellis NADERERFacility:G6Brlsd: 02-10-2022 End: 05-91-9022ixavytdyuqHVCV ROBERTS .Facility:J3Psfxl: 05-70-0932VvvmllFtqxumy Lupillo DONAVAN Work Phone: OphthalmologyComment on above:Refill RequestStart: 11-26-2021 End: 25-79-4557ytqvlbiwksVHMW ROBERTS .Facility:E0Qgeek: 08-73-2673Qqtcmdntr for preprocedural laboratory examinationDR ANTONELLA S WAYNE .[facility] Start: 10-27-2021 End: 47-49-4990dtavhkzeziPM ANTONELLA S WAYNE .Facility:S2Hktvb: 10-26-2021 End: 69-09-9078Uqujnvrjk for preprocedural laboratory examinationDR ANTONELLA S WAYNE .Facility:K8Lvpmn: 10-26-2021 End: 85-41-9909pbkoamupsmWF ANTONELLA S WAYNE .Facility:L4Zszuc: 08-28-0189Jrxmfra encounter [facility]ology[facility] Work Phone: Start: 02-14-2020 End: 14-92-0940Yshydpptwz hospital visit by physicianMri Radio [facility] (I-Stat/1.5t)RadiologyComment on above:Chronic mixed headache syndrome [G44.89] Start: 10-31-2018 End: 82-77-9555Ecbzhhutc department patient visitMarymount Hospital Start: 96-14-3503Arusgqz encounter procedureRamVermont State Hospital GastroenterologyGro[facility] Work Phone: Start: 19-43-4754Kbvwkyc encounter procedureRamVermont State Hospital GastroenterologyGro[facility] Work Phone: Start: 03-62-0649Nhywyzp encounter procedureRamVermont State Hospital GastroenterologyGrover Memorial Hospital Work Phone: Procedures DateProcedureProcedure DetailPerforming ClinicianStart: 24-60-1040UJP THYROID STIM HORMONEChristopher Kenton DO Work Phone: Start: 83-06-1757HK MAXILLOFACIAL W/O CONTRASTHilary Elva Villalta MD Work Phone: Start: 10-99-4718GgrbhjxkcocQQ Jameel Massey Work Phone: Start: 85-33-8620Lnqdm depression screening assessment Jojo Wesley OD Work Phone: Start: 89-67-9634Lfk brain brain stem w/o w/contrast Jose Jung MD Work Phone: Start: 78-60-2467Yvkoh 1996 panel - Serum or PlasmaMri (I-Stat/1.5t)Start: 61-27-3191KesusnlfqxsTfxonoq Foster OD Work Phone: Start: 30-43-7524RpaqioknqasRfliuzv Foster OD Work Phone: Screening for malignant neoplasm of colonLashola Brantley Other Plan of Treatment DateCare ActivityDetailAuthorStart: 10-31-2024 End: 00-62-6124Fcfbmcw encounter qtabdoxpc90/30/2025 3:15 PM EDT Office Visit ELDON COLEMAN [address] [place] [address] KentonPili wood DO [address] [place] [address] ArrivedELODN COLEMANComment on above:ArrivedStart: 09-26-2024 [facility] Work Phone: Start: 09-17-2024 End: 07-62-9803Ammtifw encounter rcegwwqvu67/17/2025 12:30 PM EDT Office Visit ELDON VALDIVIA [address] [place] [address] aNA KRYSTALYStart: 10-34-3439Qcywb 1996 panel - Serum or PlasmaLipid Screening [facility]tart: 94-40-3364WSHIR SCREENLIPID SCREENSuburban Community Hospital & Brentwood Hospitaltart: 09-10-2024 End: 52-27-4518Cddtcqc encounter procedureELDON HOLCOMBomment on above:Mild cognitive impairmentStart: 08-30-2024 End: 14-13-5954Fumltlouc (Vitamin B12) [Mass/volume] in Serum or PlasmaVitamin B12 Lab Routine Mild cognitive impairment Expected: 08/30/2024 (Approximate), Expires: 08/30/2025[facility] Work Phone: comment on above:Expected: 08/30/2024 (Approximate), Expires: 08/30/2025Start: 08-30-2024 End: 61-50-0233Ruyycqhtkcr [Units/volume] in Serum or PlasmaTSH Lab Routine Mild cognitive impairment Expected: 08/30/2024 (Approximate), Expires: 08/30/2025 [facility] HealthcareComment on above:Expected: 08/30/2024 (Approximate), Expires: 08/30/2025Start: 08-30-2024 End: 80-51-9615Kykymnl encounter rnlilwxji69/27/2025 11:00 AM EST Office Visit ELDON COLEMAN [address] [place] [phone] Pili Fung, [address] [place] [address] [place] COLEMANComment on above:ArrivedStart: 08-28-2024 [facility]Ber[facility] Work Phone: Start: 87-17-9081Sdlmnhe referralBerger Hospital Work Phone: Start: 61-01-9965Vhdvurlhr vaccinationInfluenza Vaccine (#1)[facility]: 82-29-2151INSPYNJO SCREENDIABETES SCREEN [facility]tart: 03-69-9738Wqjavfdy ScreeningDiabetes ScreeningSuburban Community Hospital & Brentwood Hospitaltart: 00-64-7136OxezxgihcOhioHealth Van Wert Hospitaltart: 04-70-0057Bkdpcur Directive DiscussionAdvance Directive DiscussionSuburban Community Hospital & [facility] Hospitaltart: 05-26-7178HqmknzcvrkeBLIWZUHBYRNQnjpwzgre ClinicStart: 24-95-6788GCHCWUQIWJ CANCER SCREENINGCOLORECTAL CANCER SCREENINGSuburban Community Hospital & [facility] Hospitaltart: 07-04-2022 Depression AssessmentDepression AssessmentSuburban Community Hospital & [facility] Hospitaltart: 03-04-2022 Influenza vaccinationINFLUENZA (#1)[facility]: 79-72-4454Hmxtp depression screening assessmentDEPRESSION SCREENINGSuburban Community Hospital & [facility] Hospitaltart: 60-86-0483YDSGZLE DIRECTIVE DISCUSSIONADVANCE DIRECTIVE DISCUSSIONSuburban Community Hospital & [facility] Hospitaltart: 35-86-6260HRSYPRRWKN ASSESSMENTDEPRESSION ASSESSMENTSuburban Community Hospital & [facility] Hospitaltart: 28-17-8286Oequc microalbumin profileSuburban Community Hospital & Brentwood Hospitaltart: 52-73-9573KcofzhhweswKxmlpritj ClinicStart: 64-17-8348CUT Vaccine (1 - 1-dose 60+ series)RSV Vaccine (1 - 1-dose 60+ series)[facility]: 05-23-2014 Pneumococcal Vaccine: 65+ (2 - PCV)Pneumococcal Vaccine: 65+ (2 - PCV)[facility]: 72-65-1432ZOXQTWHITUGP: 65+ (2 - PCV)PNEUMOCOCCAL: 65+ (2 - PCV) [facility]: 47-00-4967MRJQW OCCULT BLOODFECAL OCCULT BLOODSuburban Community Hospital & [facility] Hospitaltart: 86-68-5007GNZZNQZB VACCINE (1 of 2)SHINGRIX VACCINE (1 of 2) [facility]: 76-81-6561LGEMYSDPN (FIT-DNA)COLOGUARD (FIT-DNA)[facility]: 21-57-5351OD COLONOGRAPHYCT COLONOGRAPHYSuburban Community Hospital & [facility] Hospitaltart: 79-79-0322FXIPTBZHUNBVPWVAENRLYDNSWIYjubloidv ClinicStart: 62-96-8720QWMZQ-19 VACCINE (#1)COVID-19 VACCINE (#1)[facility] End: 01-79-8360ABD SCREENINGMAM SCREENING Radiology Routine Encounter for screening mammogram for breast cancer 1 Occurrences starting 06/16/2022 until 07/16/2023[facility] Work Phone: Comment on above:1 Occurrences starting 06/16/2022 until 07/16/2023MR Brain WO contrastCorey HospitalPatient EducationHemorrhoids Colon Polyps Diverticulosis (DC)[facility] Work Phone: Patient referralBerger Hospital Work Phone: XR Thoracic spine 3 [facility] Immunizations Immunization DateImmunizationNotesCare WxkjjcorQblovcyj68-46-8432sfybkncuy virus vaccine, unspecified formulationCorey Hospital11-16-2023 influenza, high dose seasonal, preservative-freeMarcia Michele Other [facility] [employer] Other [id number], injectable, quadrivalent, contains preservMarily Wesley OD Work Phone: [facility] HospitalKpavvt21-18-0670swurvvrno virus vaccine, unspecified formulationMri (I-Stat/1.5t)[facility] HospitalUkqdzv96-23-3759hsgnridjy, injectable, quadrivalent, contains preservMarily Wesley OD Work Phone: [facility] HospitalBhidxf53-05-8243njwstl vaccine, recombinant, adjuvanted, (SHINGRIX, PF,) 50 mcg/0.5 mL injectionMri (I-Stat/1.5t)[facility] Work Phone: Comment on above:Inject 0.5 mL intramuscularly now and repeat 2nd dose in 2-6 ednjfq23-69-2496zplyjmxcr, injectable, quadrivalent, contains preservativeLindsey Foster OD Work Phone: [facility] HospitalDjstph21-16-4724sseucsfme, injectable, quadrivalent, preservative freeLindsey Foster OD Work Phone: [facility] Work Phone: [phone], injectable, quadrivalent, preservative freeLindsey Foster OD Work Phone: [facility] Work Phone: [phone] virus vaccine, unspecified formulationLindsey Winona OD Work Phone: [facility] [id number] polysaccharide vaccine, 23 valentLindsey Lupillo OD Work Phone: [facility] HospitalOcqaoq92-49-4964ymedkybzf virus vaccine, unspecified formulationLindsey Winona OD Work Phone: [facility] [id number] toxoid, reduced diphtheria toxoid, and acellular pertussis vaccine, adsorbedLindsey Foster OD Work Phone: [facility] Payers DatePayer CategoryPayerPolicy [id number] [id number] MEDICARE ADVANTAGE Member Subscriber Plan / Payer (Effective 2021-Present) Name: Marly Jaffe Relation to Subscriber: Self Name: Marly Jaffe Payer ID: [id number] (NAIC) Type: Not on file Address: [facility] [id number] [address] [id number] Unknown[employer]HEM BLUE CARD PPO OOS [id number] 2019-Present [phone] [id number] [place] [address] [id number]22DddxostTVVSBF BLUE CARD PPO OOS [id number] 2019-Present [phone] [address] [place], [place] [address] [id number]4-6348Uwpijcq Health Insurance [id number] 2.0.1.102257.3.57[id number] 2.0.1.389364.3.57[id number] 2.0.1.278813.3.57[id number] 2.840.1.953246.3.57[id number] 2.0.1.190010.3.57[id number] 2.160.1.519245.3.57[id number] 2.160.1.238034.3.57[id number] 2.16840.1.146645.3.57[id number] 2.160.1.933365.3.57[id number] 2.16.840.1.440210.3.57[id number] 2.16.840.1.469898.3.57[id number] 2.16840.1.188233.3.57[id number] 2.16840.1.125387.3.57[id number] 2.16840.1.629598.3.57[id number] 2.840.1.348508.3.57[id number] 2.840.1.971806.3.57[id number] 2.840.1.883582.3.579.[id number] 2.16840.1.302268.3.57[id number] 2.840.1.402349.3.57[id number] 2.840.1.770540.3.579.2.[id number] 2.840.1.87[id number] 2.840.1.890206.3.579.2.531 Social History DateTypeDetailFacilityStart: 09-11-2019 End: 76-93-0269Pjwaykz smoking status [facility]alk[facility] Start: 11-59-0282Wlyhsyv of tobacco useCigarette SmokerSuburban [facility] Hospital & Brent[facility] Hospitaltart: 01-29-2020 End: 55-83-6886Ozrnrig intakeCurrent drinker of alcohol (finding)[facility] Hospitaltart: 01-18-2020 End: 71-54-0514Jlpsrme SDOH Alcohol Mvjhlelyj3Rufcjnuwa ClinicStart: 01-18-2020 End: 39-25-4204Rkcueml SDOH Alcohol Std Nhqdme8Nbjndrzlb ClinicStart: 07-25-2014 History SDOH Alcohol Comment1 drink per yearSuburban Community Hospital & Brentwood Hospitaltart: 09-11-2019 End: 05-33-3700Yelcnft SDOH Social Connections Ovqvl9SlmzfrkymChildren's Hospital of Columbustart: 13-90-7350Ormfout SDOH Physical Activity IXP9JuwsatkytChildren's Hospital of Columbustart: 09-11-2019 Pkufwvjag37Pqffflbxk ClinicStart: 21-00-0682Oocdeok Commentcurrent 0.5-1ppd [facility]: 26-35-5111Vub Assigned At BirthFemaleCOhio State East Hospital Start: 09-11-2019 End: 69-17-3910Cdoqplouvf smoked current (pack per day) - Reported0.8CChildren's Hospital of Columbustart: 19-44-2385Upvzqje use and exposureSmokeless tobacco non-user [facility] Work Phone: Start: 07-29-2022 End: 02-11-1126Nbqkwjl smoking status NHISSmoker (finding)[facility] Hospitaltart: 01-18-2020 End: 98-45-9695Xmx Assigned At [facility] Hospitaltart: 73-63-2605Lsckuqhko of Communication with Friends and FamilyNot on fileCleSelect Medical Specialty Hospital - YoungstownDo you belong to any clubs or organizations such as methodist groups, unions, fraternal or athletic groups, or school groups?YesToledo HospitalHow often to you have a drink containing alcohol?Monthly or lessToledo HospitalHow many standard drinks containing alcohol do you have on a typical day?1 or 2ClevelProMedica [facility]edo HospitalHow often do you have 6 or more drinks on 1 occasion?NeverToledo HospitalDo you feel stress - tense, restless, nervous, or anxious, or unable to sleep at night because yourmind is troubled all the time - these days [OSQ]Only a little [facility](I/We) worried whether (my/our) food would run out before (I/we) got money to buy more.Never trueToledo HospitalIn the past 12 months, was there a time when you were not able to pay the mortgage or rent on time?No [facility]: 26-80-3102Ymdtbs identityIdentifies as female gender (finding)[facility]: 42-33-0580Kqechj orientationChoose not to discloseSuburban Community Hospital & Brentwood Hospitaltart: 01-15-2020 End: 80-63-6039Vqtodbye to SARS-CoV-2 (event)Not sureToledo HospitalTobacc smoking statusNo Smoking Status EnteredCherrington Hospitaltart: 08-28-2024 End: 74-30-5575XmbCnvplx (finding)[facility] Hospitaltart: 88-73-3303Ftekmzm use and exposureUser of smokeless tobaccoSaint John's HospitalStart: 07-06-2023 End: 07-91-4896Ukstidgoc beverage intakeEx-drinker (finding)[facility] Start: 29-60-4397Tpf assigned at birthNot on [facility] HealthcareNEGATED: Highlighted row-Current every day smokerCARRIE TINGLEY HOSPITALdoxIQology8Trip Work Phone: Goals DatePatient GoalDesired Activity/State Functional Status DateAssessmentResultFacilityNEGATED: Highlighted rowFunctional performance Functional status health issues are not documented DiseaseCentury City Hospital AbsolutData Work Phone: Mental Status DateAssessmentResultFacilityNEGATED: Highlighted rowCognitive function [Interpretation]Cognitive status health issues are not documented DiseaseCentury City Hospital Flats&Housesology8Trip Work Phone: Clinical Notes 06-05-2012 to 05-07-2025 Note Date & JkjbMjjwCcamddlq71-28-9508 NoteUT Cardiology Consult Note Reason for visit: Palpitations, AT 05/07/25 patient states that she has experienced some palpitations but the loop has remained the same sinus rhythm. Loop eval does not reveal any evidence of tachycardia and there has been evidence of noise which was missed as SVT as seen in episode on April 21, 2025 . Other episodes where the patient's not fluttering sensation are all sinus rhythm. She is currently on Toprol-XL 25 mg once daily. Review of Systems Cardiovascular: Positive for palpitations. 06/12/24 Patient here for 5 mo follow [...] ---- 06/29/22 HPI: Marly Jaffe is a 70 y.o. year old with past medical history [...] (gastroesophageal reflux disease) Hyperlipidemia SVT (supraventricular tachycardia) PSH: Past Surgical History: Procedure Laterality Date BREAST SURGERY implants REPLACEMENT TOTAL KNEE ONCOLOGIC UTERINE FIBROID EMBOLIZATION SH: Social Drivers of Health Tobacco Use: High Risk (05/07/2025) Patient History Smoking Tobacco Use: Every Day Smokeless Tobacco Use: Never Passive Exposure: Current Alcohol Use: Not At Risk (02/28/2020) Received from [facility] AUDIT-C Frequency of Alcohol Consumption: Monthly or less Average Number of Drinks: 1 or 2 Frequency of Binge Drinking: Never Financial Resource Strain: Low Risk (01/18/2020) Received from [facility] Overall Financial Resource Strain (CARDIA) Difficulty of Paying Living Expenses: Not hard at all Food Insecurity: No Food Insecurity (09/11/2019) Received from [facility] Hunger Vital Sign Worried About Running Out of Food in the Last Year: Never true Ran Out of Food in the Last Year: Never true Transportation Needs: No Transportation Needs (09/11/2019) Received from [facility] PRAPARE - Transportation Lack of Transportation (Medical): No Lack of Transportation (Non-Medical): No Physical Activity: Sufficiently Active (01/18/2020) Received from [facility] Exercise Vital Sign Days of Exercise per Week: 5 days Minutes of Exercise per Session: 30 min Stress: No Stress Concern Present (01/18/2020) Received from [facility] [place] [employer] - Occupational Stress Questionnaire Feeling of Stress : Onl (more content not included)...[facility]05-15-2025 NoteCardiovascular Medicine [facility] SUBJECTIVE Chief Complaint Patient presents with SVT Marly Jaffe is a 69 y.o. female here for routine follow-up. HPI PMHx: HTN, SVT, AT, s/p LOOP recorder 11/15/24 Doing well from a cardiac standpoint. BP has been ranging 110-130s/70-80s after medications. She c/o rash. Started when she has started her pain management medications. She will be reaching out to pain management. Denies c/o CP, dyspnea, orthopnea, PND, LE edema, dizziness/LH, palpitations, syncope. Last HPI per Dr. Han: 06/12/24 Patient here for 5 mo follow [...] and another 5 beats noted on 04/15/2022, Patient Active Problem List Diagnosis Postmenopausal atrophic vaginitis Multiple thyroid nodules Lumbosacral spondylosis without myelopathy GERD (gastroesophageal reflux disease) Family history of early CAD Family history of diabetes mellitus (DM) Family history of colon cancer Elevated IOP Essential hypertension Constipation Colon polyps Bilateral wrist pain Allergic rhinitis Tobacco dependency Syncope Symptomatic menopausal or female climacteric states Spinal stenosis Smoker SVT (supraventricular tachycardia) Anxiety Chronic cough Chronic maxillary sinusitis Chronic pansinusitis Neck mass PND (post-nasal drip) Palpitations Asthma Back muscle spasm Dysuria Encounter for screening colonoscopy Hair loss disorder Weight gain, abnormal H/O bilateral breast implants Osteopenia Scattered fibroglandular tissue density of both breasts on mammography Past Medical History: Diagnosis Date Abnormal ECG Anxiety GERD (gastroesophageal reflux disease) Hyperlipidemia SVT (supraventricular tachycardia) Family History Problem Relation Name Age of Onset Stroke Mother Hypertension Mother Cancer Mother Stroke Father Other (pacemaker/ICD) Father Cancer Sister Social History Tobacco Use Smoking status: Every Day Current packs/day: 1.00 Average packs/day: 1 pack/day for 36.4 years (36.4 ttl pk-yrs) Types: Cigarettes Start date: 1988 Passive exposure: Current Smokeless tobacco: Never Substance Use Topics Alcohol use: Never Drug use: Yes Types: Marijuana Comment: smokes 1 to 2 hits (more content not included)...[facility]05-[facility]-2025 NotePatient is here today for a 2 month follow up. Patient states her blood pressure is jumping all the place. Patient states other than her blood pressure she is feeling good. Patient has no other symptoms. Patient states she had a rash on her back which she feels is coming from some of her medications. Review of Systems Constitutional: Negative.[facility]04-30-2025 History of Present illness Narrative* Pili Fung, - 10/31/2024 3:15 PM EDT Images from the original note were not included. Chief Complaint Patient presents with Memory Loss Subjective The patient is seen today to follow-up on cognitive impairment. The patient completed labs and a neuropsychology assessment since her last office visit. The patient states she currently has a rash across her back. She took every one of her medications and checked the side effects and states some ofher vitamins cause rashes. She stopped Baclofen and is weaning down omeprazole due to this. The patient denies worsening cognition since her last office visit. Review of Systems Constitutional: Negative for appetite change, fatigue and fever. Respiratory: Negative for cough, shortness of breath and wheezing. Cardiovascular: Negative for chest pain, palpitations and leg swelling. Gastrointestinal: Negative for abdominal pain, constipation, diarrhea and nausea. Musculoskeletal: Negative for arthralgias, gait problem and myalgias. Neurological: Negative for dizziness, tremors, numbness and headaches. Memory loss Past Medical History: Diagnosis Date Arthritis Current every day smoker Family history of colon cancer 03/28/2017 Family history of diabetes mellitus (DM) 01/12/2023 GERD (gastroesophageal reflux disease) History of breast augmentation Postmenopausal atrophic vaginitis 01/12/2023 Symptomatic menopausal or female climacteric states 01/12/2023 Syncope 09/17/2011 Tobacco dependency 09/17/2011 Past Surgical History: Procedure Laterality Date ENDOMETRIAL ABLATION OTHER SURGICAL HISTORY uterine ablation OTHER SURGICAL HISTORY breast implants OTHER SURGICAL HISTORY 2022 cardiac loop implant SINUS SURGERY nasal polyps removed, age early 30s Family History Problem Relation Name Age of Onset Cancer Mother Heart failure Mother Stroke Mother Dementia Mother Stroke Father Heart failure Father Kidney failure Father Diabetes Father Cancer Father Diabetes Sister Diabetes Paternal Grandfather Social History Tobacco Use Smoking status: Every Day Current packs/day: 1.00 Types: Cigarettes Smokeless tobacco: Current Substance Use Topics Alcohol use: Not Currently Allergies: Tramadol, Celecoxib, Compazine [prochlorperazine], Methocarbamol, Sulfacetamide, Amoxicillin-pot clavulanate, and Hydroxychloroquine Vitals: 10/31/24 1504 BP: 140/83 Pulse: 75 Body mass index is 24.62 kg/m . Weight: 139 lb Neurologic exam: Mental status: Awake, alert to person, place and time. Yohan cognitive assessment: Language is fluent without aphasia. Attention and concentration are normal. Fund of knowledge is appropriate for level of education. Cranial nerves: CN II: Visual acuity is normal. Visual duffy full to confrontation. CN III, IV, : pupils equal round and reactive to light. Extraocular movements intact. No ptosis present. CN V: Facial sensation is normal. CN VII: Full and symmetric facial movement. CN VIII: Hearing is normal to finger rub bilaterally: CN IX and X: Palate elevates symmetrically. CN XI: Shoulder shrug is normal bilaterally. CN XII: Tongue is midline without atrophy or fasciculation. Motor: RUE Strength deltoid, , biceps , triceps , wrist extensors , wrist flexor , track repairer strength 5/5. LUE Strength deltoid , biceps , triceps , wrist extensors , wrist flexor , track repairer strength 5/5. RLE Strength illopsoas, quadriceps, tibialis anterior, and gastrocnemius strength 5/5. LLE Strength illopsoas, quadriceps, tibialis anterior, and gastrocnemius strength 5/5. Normal tone x4 extremities. Bulk is normal. Sensory: Sensation is intact to light touch throughout Four extremities. Reflexes: RUE biceps reflex 2+ brachioradialis reflex 2+ . LUE biceps reflex 2+ brachioradialis reflex 2+ . RLE knee reflex 2+ . LLE knee reflex 2+ . Mario's sign negative. Coordination: Kjfsud-io-xvvo testing and rapid alternating movements are normal Gait: Normal Review and summary of old records: Neuropsych evaluation on 09/17/2024: Current neuropsych evaluation demonstrates variable levels of engagement interpret findings with caution this suggests a mild neurocognitive disorder exacerbated by high levels of stress and anxiety. Severity of cognitive struggles and retained independence do not support a neurodegenerative condition. Risk of conversion to such a condition does warrant close monitoring. B12 and TSH 08/31/24: normal MOCA at 08/30/24: 21/30 MRI of the brain without contrast on 08/07/2024: No acute intracranial abnormalities B12 and Thyroid stimulating hormone on 09/12/2019 was normal Assessment/Plan Diagnoses and all orders for this visit: Mild cognitive impairment Family history of Alzheimer's dementia It is my impression that the patient has at least mild cognitive impairment and may borderline on amild dementia. The patient had a Minong cognitive assessment on 08/30/2024 at our office and scored 21/30. Patient had an MRI of the brain in August of 2024 that was unremarkable for acute pathology that would explain the patient's symptoms. B12 and thyroid stimulating hormone are normal. 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 The patient does have a strong family history of Alzheimer's in both her mother and her father who have since . Plan: Monitor clinically If symptoms change or progress the patient may benefit from repeat neuropsych assessment Patient may be a candidate for treatment options such as Aricept or Namenda depending on results The patient was accompanied by her today. He was understanding and agreeable to the plan. Pt has been fully educated on their diagnosis, lab results, treatment options, follow up plan, and return instructions documented in this encounterSaint John's [id number] Evaluation note* Diagnosis Onset Date Resolution Status Admit Date Lumbosacral spondylosis acuteMarch 2024 9:24am [facility] Work Phone: 1(141) 536-814902-27-2025 History of Present illness Narrative* Plii Fung DO - 08/30/2024 11:00 AM EST Images from the original note were not included. No chief complaint on file. Subjective Marlybridgette Jaffe, 69 y.o., female Patient presents today for a neurologic consult at the request of Dr. Sharonda Calix for memory changes. She is accompanied by her . Patient states her memory has worsened over the last 3 years.She reports a family hx of dementia in both her family and mother. Her states she will be telling a story and in the middle will switch to a different subject completely. She is forgetting names more often. Patient is independent in all ADL's. She is driving and denies any issues with getting lost. She does take xanax at night and states she sleeps well. Admits to 8 hours of restless sleep. She denies vivid dreams or hallucinations. She admits to an increase in anxiety and agitation. MOCA 21/30. Patient would also like to go over the result of her MRI of the brain. Review of Systems Constitutional: Negative for appetite change, fatigue and fever. Respiratory: Negative for cough, shortness of breath and wheezing. Cardiovascular: Negative for chest pain, palpitations and leg swelling. Gastrointestinal: Negative for abdominal pain, constipation, diarrhea and nausea. Musculoskeletal: Negative for arthralgias, gait problem and myalgias. Neurological: Negative for dizziness, tremors, numbness and headaches. Memory loss Past Medical History: Diagnosis Date Arthritis Current every day smoker Family history of colon cancer 03/28/2017 Family history of diabetes mellitus (DM) 01/12/2023 GERD (gastroesophageal reflux disease) History of breast augmentation Postmenopausal atrophic vaginitis 01/12/2023 Symptomatic menopausal or female climacteric states 01/12/2023 Syncope 09/17/2011 Tobacco dependency 09/17/2011 Past Surgical History: Procedure Laterality Date ENDOMETRIAL ABLATION OTHER SURGICAL HISTORY uterine ablation OTHER SURGICAL HISTORY breast implants OTHER SURGICAL HISTORY 2022 cardiac loop implant SINUS SURGERY nasal polyps removed, age early 30s Family History Problem Relation Name Age of Onset Cancer Mother Heart failure Mother Stroke Mother Dementia Mother Stroke Father Heart failure Father Kidney failure Father Diabetes Father Cancer Father Diabetes Sister Diabetes Paternal Grandfather Social History Tobacco Use Smoking status: Every Day Current packs/day: 1.00 Types: Cigarettes Smokeless tobacco: Current Substance Use Topics Alcohol use: Not Currently Allergies: Tramadol, Celecoxib, Compazine [prochlorperazine], Methocarbamol, Sulfacetamide, Amoxicillin-pot clavulanate, and Hydroxychloroquine Vitals: 08/30/24 1053 BP: 144/88 Pulse: 75 SpO2: 97% Body mass index is 23.65 kg/m . weight: 137 lb 12.8 oz Neurologic exam: Mental status: Awake, alert to person, place and time. Yohan cognitive assessment: Language is fluent without aphasia. Attention and concentration are normal. Fund of knowledge is appropriate for level of education. Cranial nerves: CN II: Visual acuity is normal. Visual duffy full to confrontation. CN III, IV, : pupils equal round and reactive to light. Extraocular movements intact. No ptosis present. CN V: Facial sensation is normal. CN VII: Full and symmetric facial movement. CN VIII: Hearing is normal to finger rub bilaterally: CN IX and X: Palate elevates symmetrically. CN XI: Shoulder shrug is normal bilaterally. CN XII: Tongue is midline without atrophy or fasciculation. Motor: RUE Strength deltoid, , biceps , triceps , wrist extensors , wrist flexor , track repairer strength 5/5. LUE Strength deltoid , biceps , triceps , wrist extensors , wrist flexor , track repairer strength 5/5. RLE Strength illopsoas, quadriceps, tibialis anterior, and gastrocnemius strength 5/5. LLE Strength illopsoas, quadriceps, tibialis anterior, and gastrocnemius strength 5/5. Normal tone x4 extremities. Bulk is normal. Sensory: Sensation is intact to light touch throughout Four extremities. Reflexes: RUE biceps reflex 2+ brachioradialis reflex 2+ . LUE biceps reflex 2+ brachioradialis reflex 2+ . RLE knee reflex 2+ . LLE knee reflex 2+ . Mario's sign negative. Coordination: Syrkuq-ap-okhv testing and rapid alternating movements are normal Gait: Normal Review and summary of old records: MOCA at 08/30/24: MRI of the brain without contrast on 08/07/2024: No acute intracranial abnormalities B12 and Thyroid stimulating hormone on 09/12/2019 was normal Assessment/Plan Diagnoses and all orders for this visit: Mild cognitive impairment Family history of Alzheimer's dementia It is my impression that the patient has at least mild cognitive impairment and may borderline on amild dementia. The patient had a Minong cognitive assessment on 08/30/2024 at our office and scored . Patient had an MRI of the brain in August of 2024 that was unremarkable for acute pathology that would explain the patient's symptoms. The patient does have a strong family history of Alzheimer's in both her mother and her father who have since . Plan: We will recheck B12 and thyroid stimulating hormone We will get neuropsych testing to better understand the patient's cognitive impairment and try to more clearly determine type and severity Patient may be a candidate for treatment options such as Aricept or Namenda depending on results The patient was accompanied by her today. He was understanding and agreeable to the plan. Pt has been fully educated on their diagnosis, lab results, treatment options, follow up plan, and return instructions documented in this encounterSaint John's [id number] Chief complaint+Reason for visit Narrative* Chief Complaint Admit Date pain in back July 13, 2024 1 0:31am talk about a referral for back August 28, 2024 8:21am Reason for Visit Admit Date Anxiety July 13, 2024 1 0:31am Benign essential HTN July 13, 2024 10:31am GERD (gastroesophageal reflux disease) J anuary 2024 10:31am Iron deficiency anemia July 13 10:31am Lumbosacral spondylosis July 13 10:31am Memory changes July 13, 2024 1 0:31am Myalgia July 13, 2024 1 0:31am Paresthesia and pain of right extremity July 13, 2024 10:31am Sinusitis, acute maxillary July 13, 2024 10:31am Thoracic back pain July 13, 2024 1 0:31am Lumbosacral spondylosis August 28 8:21am Paresthesia and pain of right extremity August 28, 2024 8:21am [facility] Work Phone: 1(134) 346-581901-10-2025 Chief complaint+Reason for visit Narrative * Chief Complaint Admit Date pain in back July 13, 2024 1 0:31am talk about a referral for back August 28, 2024 8:21am Other spondylosis with radiculopathy [facility] 2024 9:24am Reason for Visit Admit Date Anxiety July 13, 2024 1 0:31am Benign essential HTN July 13, 2024 10:31am GERD (gastroesophageal reflux disease) J anuary 2024 10:31am Iron deficiency anemia July 13 10:31am Lumbosacral spondylosis July 13 10:31am Memory changes July 13, 2024 1 0:31am Myalgia July 13, 2024 1 0:31am Paresthesia and pain of right extremity July 13, 2024 10:31am Sinusitis, acute maxillary July 13, 2024 10:31am Thoracic back pain July 13, 2024 1 0:31am Lumbosacral spondylosis August 28 8:21am Paresthesia and pain of right extremity August 28, 2024 8:21am [facility] Work Phone: 1(370) 859-997501-10-2025 Evaluation note* Diagnosis Onset Date Resolution Status Admit Date Anxiety acuteJanuary 2024 10:31amBenign essential HTNacuteJanuary 2024 10:31amGERD (gastroesophageal reflux disease)acuteJanuary 2024 10:31amIron deficiency anemiaacuteJanuary 2024 10:31amLumbosacral spondylosisacute July 13, 2024 10:31amMemory changesacuteJanuary 2024 10:31amMyalgia acuteJanuary 2024 10:31amParesthesia and pain of right extremityacute July 13, 2024 10:31amSinusitis, acute maxillaryacuteJanuary 2024 10:31amThoracic back painacuteJanuary 2024 10:31amLumbosacral spondylosis acuteFebruary 2024 8:21amParesthesia and pain of right extremityacute August 28, 2024 8:21am [facility] Work Phone: [phone] NoteUT Cardiology Consult Note Reason for visit: Palpitations, AT 06/12/24 [...] (gastroesophageal reflux disease) Hyperlipidemia SVT (supraventricular tachycardia) ([facility]) PSH: Past Surgical History: Procedure Laterality Date BREAST SURGERY implants REPLACEMENT TOTAL KNEE ONCOLOGIC UTERINE FIBROID EMBOLIZATION SH: Social Determinants of Health Tobacco Use: High Risk (06/12/2024) Patient History Smoking Tobacco Use: Every Day Smokeless Tobacco Use: Never Passive Exposure: Current Alcohol Use: Not At Risk (02/28/2020) Received from [facility] AUDIT-C Frequency of Alcohol Consumption: Monthly or less Average Number of Drinks: 1 or 2 Frequency of Binge Drinking: Never Financial Resource Strain: Low Risk (01/18/2020) Received from [facility] Overall Financial Resource Strain (CARDIA) Difficulty of Paying Living Expenses: Not hard at all Food Insecurity: No Food Insecurity (09/11/2019) Received from [facility] Hunger Vital Sign Worried About Running Out of Food in the Last Year: Never true Ran Out of Food in the Last Year: Never true Transportation Needs: No Transportation Needs (09/11/2019) Received from [facility] PRAPARE - Transportation Lack of Transportation (Medical): No Lack of Transportation (Non-Medical): No Physical Activity: Sufficiently Active (01/18/2020) Received from [facility] Exercise Vital Sign Days of Exercise per Week: 5 days Minutes of Exercise per Session: 30 min Stress: No Stress Concern Present (01/18/2020) Received from [facility] [place] [facility] [employer] - Occupational Stress Questionnaire Feeling of Stress : Only a little Social Connections: Unknown (01/18/2020) Received from [facility] Social Connection and Isolation Panel [NHANES] Frequency of Communication with Friends and Family: Not on file Frequency of Social Gatherings with Friends and Family: Not on file Attends [employer]: More than 4 times per year Active M (more content not included)...[facility] 06-21-2023 Evaluation note* Encounter Date Diagnosis Assessment Notes Treatment Notes Treatment Clinical Notes Jun, Post-nasal drainage (ICD-10 - R0 9.82) [facility] Other 11-30-2023 Evaluation note* Encounter Date Diagnosis Assessment Notes Treatment Notes Treatment Clinical Notes May, Mass of right side of neck (ICD- 10 - R22.1) Pt agrees to US and further assessment of this area that intermittently enlarges. May,hronic cough (ICD-10 - R05.3)Agrees to inhaler and steroids to relieve wheezing May,hronic sinusitis of both maxillary sinuses (ICD-10 - J32.0)Imaging and consider ENT referral if needed. [facility] Other 11-22-2023 NotePatient Outreach (INTMMN) MARLY JAFFE ([id number]) 1955 F Date Time Provider Department 05/25/23 JYOTI JUNG During your visit today, we recorded the [...] for screening mammogram for breast cancer [Z12.31] Order(s):[facility] SCREENING [[id number]] Order #: [id number] FUTURE Prescriptions as of 05/30/2023 - travoprost [...] at bedtime as needed. - MV with Dlj-Flprghrx-Wxecta (CENTRUM SILVER) 0.4-300-250 mg-mcg-mcg tab Take 1 [...] (DM) [Z83.3] Postmenopausal atrophic vaginitis [N95.2] Dyspareunia [LSB9529] 11/04/2017 Tobacco user [Z72.0] 05/03/2013 Symptomatic menopausal or female climacteric st* Screening breast examination [Z12.39] 03/30/2011 08/02/2011 Constipation [K59.00] Abnormal mammogram [R92.8] 08/02/2011 11/04/2017 Elevated BP [IYD5162] 08/02/2011 Chest pain [R07.9] 09/17/2011 05/03/2013 Tobacco dependency [F17.200] 09/17/2011 Family history of early CAD [Z82.49] 09/17/2011 Syncope [R55] 09/17/2011 Postmenopausal HRT (hormone replacement therapy*06/05/2012 Screening breast examination [Z12.39] 06/05/2012 05/03/2013 Elevated IOP [H40.059] 05/03/2013 Multiple thyroid nodules [E04.2] 05/03/2013 Family history of colon cancer [Z80.0] 03/28/2017 Smoker [F17.200] 05/03/2017 Bilateral wrist pain [M25.531, M25.532] 07/14/2017 Encounter Status:Closed by TOBIAS, PRODUSER on 05/30/23[facility] 05-19-2023 Evaluation note* Encounter Date Diagnosis Assessment Notes Treatment Notes Treatment Clinical Notes May, Allergic rhinitis, u nspecified seasonality, unspecified trigger (ICD-10 - J30.9) [facility] Other 04-20-2023 NoteCONSULTATION CONSULTATION DATE: 10/21/2022 TO: Jameel Massey M.D. CHIEF COMPLAINT: Includes bilateral right worse [...] our patients to inform us about any gucw-oyz-oasyuma medications or herbal remedies/nutritional supplements/alternative remedies. 2. [...] treatment options with their primary care provider.[facility] [id number] Evaluation note * Encounter Date Diagnosis Assessment Notes Treatment Notes Treatment Clinical Notes Sep, Constipation (ICD-10 - K59.00) Sep,iverticulosis (ICD-10 - K57.90) Sep,Hemorrhoids (ICD-10 - K64.9) Sep,OtherRepeat colonoscopy in 5 yrs [facility] NotePatient Outreach (INTMMN) MARLY JAFFE ([id number]) 1955 F Date Time Provider Department 06/16/22 JYOTI JUNG INTMMN During your visit today, we recorded [...] for screening mammogram for breast cancer [Z12.31] Order(s):[facility] SCREEN[facility] [[id number]] Order #: [id number] FUTURE Prescriptions as of 06/21/2022 - omeprazole [...] at bedtime as needed. - MV with Kzt-Xpdwwgfs-Xegqra (CENTRUM SILVER) 0.4-300-250 mg-mcg-mcg tab Take 1 [...] (DM) [Z83.3] Postmenopausal atrophic vaginitis [N95.2] Dyspareunia [NGT9304] 11/04/2017 Tobacco user [Z72.0] 05/03/2013 Symptomatic menopausal or female climacteric st* Screening breast examination [Z12.39] 03/30/2011 08/02/2011 Constipation [K59.00] Abnormal mammogram [R92.8] 08/02/2011 11/04/2017 Elevated BP [EEM9934] 08/02/2011 Chest pain [R07.9] 09/17/2011 05/03/2013 Tobacco dependency [F17.200] 09/17/2011 Family history of early CAD [Z82.49] 09/17/2011 Syncope [R55] 09/17/2011 Postmenopausal HRT (hormone replacement therapy*06/05/2012 Screening breast examination [Z12.39] 06/05/2012 05/03/2013 Elevated IOP [H40.059] 05/03/2013 Multiple thyroid nodules [E04.2] 05/03/2013 Family history of colon cancer [Z80.0] 03/28/2017 Smoker [F17.200] 05/03/2017 Bilateral wrist pain [M25.531, M25.532] 07/14/2017 Encounter Status:Closed by FOUZIA COLLADO on 06/21/22[facility] 05-07-2022 Miscellaneous Notes* Telephone Encounter - Judy Patel MA - 05/07/2022 7:21 AM EDT Pharmacy escribed requesting the following refill. Requested Prescriptions Pending Prescriptions Disp Refills omeprazole (PRILOSEC) 20 mg capsule [Pharmacy Med Name: OMEPRAZOLE DR 20 MG CAPSULE] 90 capsule 1 Sig: TAKE 1 CAPSULE BY MOUTH EVERY DAY Patient last appointment: 08/13/2020 Patient Phone numbers: [phone] (home) Request is for script(s) to be escript to pharmacy. Judy aPtel MA documented [facility]08-10-2022 NoteCONSULTATION CONSULTATION DATE: 02/10/2022 This is [...] changes in the weather. 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 She denies any [...] time and the patient is in agreement.[facility] [id number] NoteCONSULTATION CONSULTATION DATE: 11/26/2021 HISTORY OF PRESENT [...] Patient agrees with the plan of care. [facility] Signed and Approved by: SWEEITE ROBERTS . 12/03/2021 16:05:00[facility]08-13-2020 History of Present illness Narrative* Gail Ferrari [...] 2020 TIME: 9:41 AM documented in this encounterToledo Hospital12-03-2012 History of Past illness Narrative* ProblemNoted DateResolved DateScreening breast tobnlfgfgey24/03/2012 05/03/2013Chest painbnormal hifzvwqfw63 Screening breast dnhyhcbfixw98Colon cancer screening Degeneration of lumbar or lumbosacral intervertebral disc Dyspareunia11/04/2017Tobacco user05/03/2013documented as of this encounter (statuses as of 02/01/2022) [facility]12-03-2012 History of Past illness Narrative* ProblemNoted Date Resolved DateScreening breast yzuzjxymgtt03Chest pain bnormal zlmuxkzfd50Screening breast ingolyylzye10Colon cancer ckvwimpfy91 Degeneration of lumbar or lumbosacral intervertebral disc Jwwqtwssbsf31/04/2018Tobacco user05/03/2013documented as of this encounter (statuses as of 05/07/2022) [facility]12-03-2012 History of Past illness Narrative* ProblemNoted Date Resolved DateScreening breast extwltpoasc11Chest pain bnormal hcpcatyzn81Screening breast dqwaqgijifq80Colon cancer xyjomfxez84 Degeneration of lumbar or lumbosacral intervertebral disc Zzlalolwwwz03/04/2018Tobacco user05/03/2013documented as of this encounter (statuses as of 06/21/2022) [facility]12-[facility] History of Past illness Narrative* ProblemNoted Date Diagnosed DateResolved DateScreening breast gfoezmezxcf85 Chest painbnormal archcfqca19Screening breast tpecbtfazes10Colon cancer ncyaxhdcm34/31/2009 08/02/2011Degeneration of lumbar or lumbosacral intervertebral disc01/24/2009 10/22/20137168Hfvebgqyndf04/04/2018Tobacco user05/03/2013documented as of this encounter (statuses as of 05/08/2023) [facility] No data available for this section [facility] Diagnosis Encounter for screening mammogram for breast cancer documented in this encounter [facility] note* Diagnosis Onset Date Resolution Status Encounter for screening colonoscopy acute [facility] Work Phone: Evaluation note* Diagnosis Chronic mixed headache syndrome Other headache syndromes documented in this encounter [facility] noteNo [facility] [employer] Other Evaluation note* Diagnosis Mild cognitive impairment- Primary Mild cognitive impairment, so stated Family history of Alzheimer's disease Family history of other condition documented in this encounter [facility] HealthcareEvaluation note* Diagnosis Mild neurocognitive disorder- Primary documented in this encounter [facility] HealthcareHospital Discharge instructions Additional Instructions DISCHARGE INSTRUCTIONS FOR [...] kiwi fruit Repeat colonoscopy in 5 years [facility] 1 p.o. every morning -Notify the doctor if you have any problems. -Office number [phone] [facility] Work Phone: Hospital Discharge instructions No data available for this section [facility] Dis[facility] instructionsAmbulatory Orders* Referral to Neurosurgery Time Frame: 08/28/24, Location: None [facility] Work Phone: Hospital Discharge instructionsAmbulatory Orders* Referral to Physical Medicine and Rehabilitation Location: None [facility] Work Phone: Instructions* Name Dates Details Instructions not documented [facility] Work [facility]: Progress note No data available for this section [facility] for referral (narrative)* Diagnostic Procedure Only (Routine) - Pending ReviewSpecialtyDiagnoses / Procedures Referred By ContactReferred To ContactBR IMAGING Diagnoses Encounter for screening mammogram for breast cancer Procedures DOLORES SCREENING SCREENING MAMMOGRAPHY BI 2-[place] [address] [place] [address] [facility] [address] [place] [address] Referral IDStatusSent[facility] DateExpiration DateVisits RequestedVisits [id number] Auto-Generated Referral [facility] for referral (narrative)* Diagnostic Procedure Only (Routine) - ClosedSpecialtyDiagnoses / ProceduresReferred By ContactReferred To ContactMR IMAGING Diagnoses Chronic mixed headache syndrome G44.89 (ICD-10-CM) - Chronic mixed headache syndrome Procedures MRI BRAIN WO/W IVCON MRI BRAIN COMBO MRI BRAIN [place] [address] [place] [address] Mr Imaging [facility]95 Referral IDStatusEanBig Bend DateExpiration DateVisits RequestedVisits [id number] Auto-Generated Referral [facility] for visit Narrative* Consultation (Routine) - Closed SpecialtyDiagnoses / ProceduresReferred By ContactReferred To ContactNeurology Diagnoses Other amnesia Procedures CO OFFICE/OUTPATIENT [facility] 30 MINUTES Sharonda Calix MD [address] [place] [address] Phone: tel: fax: Ángel Marrero MD [address] [place] [address] Phone: tel: fax: Referral IDStatusReasonStart DateExpiration DateVisits RequestedVisits [id number] Consult and Treat [facility] Summary Purpose Family History No Family History Records Found Relationship Condition Age at Onset Recorded Date/T bishop brother Malignant neoplasm of colon Unknown sisterMalignant neoplasm of boneUnknownsisterMalignant neoplasm of pancreas Unknown Relationship Condition Age at Onset Recorded Date/T bishop brother Malignant neoplasm of colon Unknown sisterMalignant neoplasm of boneUnknownsisterMalignant neoplasm of pancreas UnknownfatherDeceasedUnknown Advance Directives No Advanced Directives Records FoundDocuments on File TypeDate RecordedPatient RepresentativeExplanationAdvance Directive(s)10/31/2018 9:16 AMAdvance Directive(s)12/04/2012 9:42 PMAdvance Directive(s)11/29/2012 9:09 PM TypeDate RecordedPatient RepresentativeExplanationAdvance Directive(s)12/04/2012 9:42 PMAdvance Directive(s)11/29/2012 9:09 PMTypeDate RecordedPatient RepresentativeExplanationAdvance Directive(s)12/04/2012 9:42 PMAdvance Directive(s)11/29/2012 9:09 PM Advance Directive Response Recorded Date/ Time Advance Directives No July 28, 2022 2:19pm Advance Directive Response Recorded Date/ Time Advance Directives No July 28, 2022 3:19pm Chief Complaint and Reason for Visit Chief Complaint Constipation, Hx Col on Polyps, Fam Hx Colon Ca Reason for Visit Encounter for screen ing colonoscopy Chief Complaint Admit Date Other spondylosis with radiculopathy Sep 9:24am rash across chest/cold sores December 05 025 11:04am Reason for Visit Admit Date Lumbosacral spondylosis September 26, 2024 9:24am Reason for Referral Reason *FU 06/30 Dr. Callahan is in [place] Diagnosis 1 Post-nasal drainage (R09.82) Referral Organization [facility] kaylah Referring Provider First Name Sharonda Referring Provider Last Name Michele Referring Provider Specialty [facility] Referred Organization [facility] Referred Provider PawanShaan Elva Referred Address ,[place],[address] Referred Provider Specialty Ear, Nose an d Throat Referral Priority Routine General Notes Iam Inessa 02:51:01 PM >received today, notes locked, ins attached, referral faxed Additional Source Comments INFORMATION SOURCE (unrecogn ized section and content) DATE CREATED AUTHOR 11/12/2018 [facility] DATE CREATED AUTHOR AUTHOR'S ORGANIZ ATION 06/18/2019 [facility] DATE CREATED AUTHOR AUTHOR'S ORGANIZ ATION 05/01/[facility] DATE CREATED AUTHOR AUTHOR'S ORGANIZ ATION 08/01/2022 [facility] DATE CREATED AUTHOR AUTHOR'S ORGANIZ ATION 10/26/2022 [facility] DATE CREATED AUTHOR AUTHOR'S ORGANIZ ATION 05/30/2023 [facility] DATE CREATED AUTHOR AUTHOR'S ORGANIZ ATION 07/07/2023 [facility] EPIC DATE CREATED AUTHOR AUTHOR'S ORGANIZ ATION 08/20/[address] [facility] DATE CREATED AUTHOR AUTHOR'S ORGANIZ ATION 05/02/2024 [facility] DATE CREATED AUTHOR AUTHOR'S ORGANIZ ATION 07/27/2024 [facility] DATE CREATED AUTHOR AUTHOR'S ORGANIZ ATION 11/05/2024 [facility] EPIC DATE CREATED AUTHOR AUTHOR'S ORGANIZ ATION 05/12/2025 [facility] Source Comments (unrecognize d section and content) In the event this informatio n is protected by the Federal Confidentiality of Alcohol and Drug Abuse Patient Records regulations: The Federal rules restrict any use of the information to criminally investigate or prosecute any alcohol or drug abuse patient.[facility] HospitalIn the event this information is protected by the Federal Confidentiality of Alcohol and Drug Abuse Patient Records regulations: The Federal rules restrict any use of the information to criminally investigate or prosecute any alcohol or drug abuse patient.[facility] HospitalIn the event this information is protected by the Federal Confidentiality of Alcohol and Drug Abuse Patient Records regulations: The Federal rules restrict any use of the information to criminally investigate or prosecute any alcohol or drug abuse patient.[facility] HospitalIn the event this information is protected by the Federal Confidentiality of Alcohol and Drug Abuse Patient Records regulations: The Federal rules restrict any use of the information to criminally investigate or prosecute any alcohol or drug abuse patient.[facility] Reason for Visit (unrecogniz ed section and content) ReasonCommentsRefill RequestReasonCommentsRadiology MRISpecialtyDiagnoses / ProceduresReferred By ContactReferred To ContactMR IMAGING Diagnoses Chronic mixed headache syndrome G44.89 (ICD-10-CM) - Chronic mixed headache syndrome Procedures MRI BRAIN WO/W IVCON MRI BRAIN COMBO MRI BRAIN [place] [address] [place] [address] [place] [address] Referral IDStatusReasonStart DateExpiration DateVisits RequestedVisits [id number] Auto-Generated Referral [id number] Loss Care Teams (unrecognized sec tion and content) Team MemberRelationshipSpecialtyStart [place] [address] [place] [address] PCP - GeneralInternal Medicine09/11/19Team MemberRelationshipSpecialtyStart [place] [address] [place] [address] [facility]/11/19Team MemberRelationshipSpecialtyStart [place] [address] [place] [address] PCP - [facility]09/11/19 Team Status: Inactive Member Role Status Dates Enrrique Brantley MD Attending Provider Active [facility] Care ProviderActive Team Status: Active Member Role Status Dates Jameel Massey MD Primary Care Provider Active Team MemberRelationshipSpecialtyStart [place] [address] [place] [address] PCP - [facility] Medicine09/11/19 Team Status: Active Member Role Status Dates Sharonda Calix MD Primary Care Provider Active Team Status: Inactive Member Role Status Dates Sharonda Calix MD Primary Care Provide r, Attending Provider Active Start: July 13, 2024 End: July 13, 2024 Team Status: Active Member Role Status Dates Sharonda Calix MD Primary Care Provide r, Attending Provider Active Start: July 16, 2024 Team Status: Inactive Member Role Status Dates Sharonda Calix MD Primary Care Provide r, Attending Provider Active Start: August 28, 2024 End: August 28, 2024Team MemberRelationshipSpecialtyStart DateEnd Date Sharonda Calix MD [address] [facility] [place] [address] PCP - GeneralFamily Cmfydoua09/22/23 Sharonda Calix MD [address] [place] [facility] [place] [address] [facility]06/24/23Team MemberRelationshipSpecialtyStart DateEnd Date Sharonda Calix MD [address] [facility] [place] [address] PCP - GeneralFami Hxbygngb65/22/23 Sharonda Calix MD [address] [place] [facility] [place] [address] [facility]06/24/23Team MemberRelationshipSpecialtyStart DateEnd Date Sharonda Calix MD [address] [facility] [place] [address] PCP - GeneralFami Tbqslwlc84/22/23 Sharonda Calix MD [address] [place] [facility] [place] [address] [facility]06/24/23 Team Status: Active Member Role Status Dates Sharonda Calix MD Primary Care Provider Active Start: August 31, 2024 Ruthy Talbert ProviderActiveStart: August 31, 2024 Team Status: Inactive Member Role Status Dates Sharonda Calix MD Primary Care Provider Active Start: September 26, 2024 End: September 26, 2024Ruthy Sands ProviderActiveStart: September 26, 2024 End: September 26, 2024Team MemberRelationshipSpecialtyStart DateEnd Date Sharnoda Calix MD PCP - [facility]06/24/23 Sharonda Calix MD [facility]06/24/23Team MemberRelationshipSpecialtyStart DateEnd Date Sharonda Calix MD PCP - [facility]06/24/23 Sharonda Calix MD [facility]06/24/23 Team Status: Inactive Member Role Status Dates Sharonda Calix MD Primary Care Provide r, Attending Provider Active Start: December 05, 2024 End: December 05, 2024Team MemberRelationshipSpecialtyStart DateEnd Date Sharonda Calix MD PCP - [facility]06/24/23 Sharonda Calix MD [facility]06/24/23 Goals (unrecognized section and content) Goals may be documented in a n alternate section FOR RECORDS PERTAINING TO PATIENTS WHO ARE [...] BE BASED ON THE PRIMARY CLINICAL RECORDS. [facility] [employer] [facility]. provides no warranty or guarantee of the accuracy or completeness of information in this document.
== END 2025-06-12 10:31 | disposition home or self-care (01) ==
LOC: SLEEP 06-13 09:35
PROVIDERS: PCP Family Medicine; Visit Provider Family Medicine
DX: G47.33 Obstructive sleep apnea (adult) (pediatric) (principal); G47.52 REM sleep behavior disorder
CPT/HCPCS: 95806